=== PATIENT | male | born 1965 | race African-American/Black ===

== ENCOUNTER 2023-02-02 01:41 | Day surgery (SDC) | payer BC, SELFPAY ==
[2023-01-19 09:57] VITALS: BMI 23.8
--- NOTE | 2023-01-29 14:30 | SUR.PREOP ---
Patient called regarding upcoming procedure. No answer - message left with arrival and phone number for questions.
[2023-02-02 12:23] VITALS: PULSE 57; RESP 18; TEMP 36.8; O2SAT 100; BMI 24.5
--- NOTE | 2023-02-02 12:46 | PM.HPGS ---
History of Present Illness History of Present Illness Consent: Risks, benefits, and alternatives have been discussed and questions answered. Patient agrees to proceed with procedure. Chief complaint: generalized abd pain, early satiety, Narrative: Jean-Pierre Sofia is a 57 year old male Presents for EGD. Patient complains rather vague abdominal discomfort. He denies overt pain. He states the symptoms of his stomach discomfort or stiff . Patient reports his bowel habits being fairly regular present. Denies any bleeding. Patient reports that a H pylori breath test was positive. Patient was treated with empiric antibiotics with no change in symptoms. Patient now referred for EGD to assess abdominal discomfort more thoroughly. Patient has refused to trial of PPI acid suppression. he is anticipated to have a screening colonoscopy next year because of a history of colon polyps. Review of Systems Review of Systems: Review of systems noncontributory. [facility] Past Medical History Medical History (Updated 12/25/22 @ 10:59 by Lidia Mojica, NATAN) Early satiety Family hx of colon cancer Generalized abdominal pain Helicobacter pylori infection Hx of colonic polyps Irritable bowel syndrome with constipation Family History Family History Mother Hypertension Family history of arthritis Carcinoma of colon Family history of Alzheimer's disease Father Family history of alcoholism Family history of lung cancer Sibling Family history of alcoholism Grandparent Family history of seizure disorder Social History Social History Smoking status: Never smoker Alcohol intake: never Substance use type: does not use Living arrangements: alone Spiritual care concerns: No Meds Home Medications and Allergies Home Medications Medication Instructions Recorded Confirmed Type albuterol sulfate 90 mcg/actuation 2 inh inhalation Q6H PRN Shortness 12/23/22 01/19/23 History breath activated powder inhaler Of Breath chlorthalidone 50 mg tablet 50 mg PO DAILY 12/23/22 01/19/23 History cholecalciferol (vitamin D3) 25 100 mcg PO DAILY 12/23/22 01/19/23 History mcg (1,000 unit) tablet paroxetine HCl 30 mg tablet 30 mg PO DAILY 12/23/22 01/19/23 History tamsulosin 0.4 mg capsule 0.4 mg PO DAILY 12/23/22 01/19/23 History tumeric 100 mg-christa 150 mg-olive 1 cap PO DAILY 12/23/22 01/19/23 History 50 mg-oreg 150 mg-caprylate capsule venlafaxine 37.5 mg tablet 37.5 mg PO DAILY 12/23/22 01/19/23 History Caprylic Acid 1 tablet PO DAILY 01/19/23 01/19/23 History Lactobacillus 1 cap PO DAILY 01/19/23 01/19/23 History acidophilus-Bifidobac.animalis 2.5 billion cell capsule (Daily Probiotic) calcium polycarbophil 625 mg 625 mg PO DAILY 01/19/23 01/19/23 History tablet (FiberCon) doxazosin 2 mg tablet 2 mg PO DAILY 01/19/23 01/19/23 History fluticasone 250 mcg-salmeterol 50 1 inh inhalation DAILY 01/19/23 01/19/23 History mcg/dose blistr powdr for inhalation (Wixela Inhub) Allergies Allergy/AdvReac Type Severity Reaction Status Date / Time amlodipine Allergy Mild Swelling Verified 01/19/23 09:59 fluoxetine Allergy Unknown Unknown Verified 01/19/23 09:59 tetracycline Allergy Unknown Unknown Verified 01/19/23 09:59 Sulfa (Sulfonamide AdvReac Mild Diarrhea Verified 01/19/23 09:59 Antibiotics) Vital Signs Vital Signs - 24 hr 02/02/23 12:23 Temperature 98.2 F Pulse Rate 57 L Respiratory Rate 18 Pulse Oximetry 100 Oxygen Delivery Room Air Exam Narrative: Physical exam reveals patient to be alert. Vital signs stable. HEENT exam is unremarkable. Patient is anicteric. Lungs are clear to auscultation and percussion. Heart is without murmur or extra sounds. Abdomen bowel sounds are present soft nontender with no organomegaly. Digital external rectal exam deferre
[2023-02-02] MEDS: LACTATED RINGERS 1,000 ML 150 ML IV CONT (13:00)
--- NOTE | 2023-02-02 13:09 | WPDANESEPPF ---
Anes - Initial Pre Proc Eval Procedure: Operation Date: 02/02/23 14:00 Proposed Procedures p Esophagogastroduodenoscopy - Calixto Ibarra MD Date/Time: 02/02/23 13:09 Surgeon: Calixto Ibarra MD Pre Op Diagnosis: generalized abd pain, early satiety, Patient Data Age: 57 Gender: M Height: 1.85 m Weight: 84.3 kg Last Vital Signs Temp 98.2 F 02/02/23 12:23 Pulse 57 L 02/02/23 12:23 Resp 18 02/02/23 12:23 Pulse Ox 100 02/02/23 12:23 O2 Del Method Room Air 02/02/23 12:23 Allergies Allergy/AdvReac Type Severity Reaction Status Date / Time amlodipine Allergy Mild Swelling Verified 01/19/23 09:59 fluoxetine Allergy Unknown Unknown Verified 01/19/23 09:59 tetracycline Allergy Unknown Unknown Verified 01/19/23 09:59 Sulfa (Sulfonamide AdvReac Mild Diarrhea Verified 01/19/23 09:59 Antibiotics) Home Medications Medication Instructions Recorded Confirmed Type albuterol sulfate 90 mcg/actuation 2 inh inhalation Q6H PRN Shortness 12/23/22 01/19/23 History breath activated powder inhaler Of Breath chlorthalidone 50 mg tablet 50 mg PO DAILY 12/23/22 01/19/23 History cholecalciferol (vitamin D3) 25 100 mcg PO DAILY 12/23/22 01/19/23 History mcg (1,000 unit) tablet paroxetine HCl 30 mg tablet 30 mg PO DAILY 12/23/22 01/19/23 History tamsulosin 0.4 mg capsule 0.4 mg PO DAILY 12/23/22 01/19/23 History tumeric 100 mg-christa 150 mg-olive 1 cap PO DAILY 12/23/22 01/19/23 History 50 mg-oreg 150 mg-caprylate capsule venlafaxine 37.5 mg tablet 37.5 mg PO DAILY 12/23/22 01/19/23 History Caprylic Acid 1 tablet PO DAILY 01/19/23 01/19/23 History Lactobacillus 1 cap PO DAILY 01/19/23 01/19/23 History acidophilus-Bifidobac.animalis 2.5 billion cell capsule (Daily Probiotic) calcium polycarbophil 625 mg 625 mg PO DAILY 01/19/23 01/19/23 History tablet (FiberCon) doxazosin 2 mg tablet 2 mg PO DAILY 01/19/23 01/19/23 History fluticasone 250 mcg-salmeterol 50 1 inh inhalation DAILY 01/19/23 01/19/23 History mcg/dose blistr powdr for inhalation (Wixela Inhub) carvedilol 12.5 mg tablet 12.5 mg PO BID 02/02/23 02/02/23 History folic acid 400 mcg tablet 0.4 mg PO DAILY 02/02/23 02/02/23 History polyethylene glycol 3350 17 17 g PO DAILY 02/02/23 02/02/23 History gram/dose oral powder (Miralax) Patient hx anesthesia problems: none Family hx anesthesia problems: none Results Review: All pre-operative results and documents have been reviewed as part of the pre-operative evaluation. [facility] Past Medical History Medical History (Updated 12/25/22 @ 10:59 by Lidia Mojica, NATAN) Early satiety Family hx of colon cancer Generalized abdominal pain Helicobacter pylori infection Hx of colonic polyps Irritable bowel syndrome with constipation Family History Family History Mother Hypertension Family history of arthritis Carcinoma of colon Family history of Alzheimer's disease Father Family history of alcoholism Family history of lung cancer Sibling Family history of alcoholism Grandparent Family history of seizure disorder Social History Social History Smoking status: Never smoker Alcohol intake: never Substance use type: does not use Living arrangements: alone Spiritual care concerns: No Anes - Eval Final PreProcedure Day of Procedure 02/02/23 13:09 Patient weight: normal Heart: regular rate and rhythm Lungs: clear to auscultation Airway: Mallampati scale class II Neurological: alert and oriented Last oral intake: >/= 8 hours ASA classification: III Emergent: no Anesthetic plan: proceed Anesthesia type and monitoring: general GIVS and standard monitoring Results Review: All pre-operative results and documents have been reviewed as part of the pre-operative evaluation. Informed Consent: The patient's anesthetic plan and its atte
[2023-02-02 13:48] VITALS: BP 139/72; PULSE 57; RESP 18; O2SAT 100
[2023-02-02 13:58] VITALS: BP 139/66; PULSE 56; RESP 18; O2SAT 100
[2023-02-02 14:00] VITALS: BP 137/67; PULSE 57; RESP 21; O2SAT 100
== END 2023-02-02 14:45 | disposition home or self-care (01) ==
PROVIDERS: PCP Family Medicine; Visit Provider Internal Medicine Gastroenterology
PROC: 0DJ08ZZ Inspection of Upper Intestinal Tract, Via Natural or Artificial Opening Endoscopic (ICD-10-PCS; CPT 43235; principal; 2023-02-02 14:00)
DX: A04.8 Other specified bacterial intestinal infections (principal); K58.1 Irritable bowel syndrome with constipation; Z79.51 Long term (current) use of inhaled steroids; Z86.010 Personal history of colon polyps; Z80.0 Family history of malignant neoplasm of digestive organs; Z80.1 Family history of malignant neoplasm of trachea, bronchus and lung
CPT/HCPCS: 43239; 87081; J2001; J2704; J7120

== ENCOUNTER 2023-05-25 08:17 | Outpatient (CLI) | payer BC, SELFPAY ==
--- NOTE | ~2023-05-25 | NM_ITS ---
EXAM: NM gastric emptying study DATE: 05/25/2023 13:16 INDICATION: Early satiety TECHNIQUE: A gastric emptying study was performed using the methodology of Jean Claude MONTEMAYOR, et al. J Nucl Med 2007; 48:568-572. The patient was given a meal consisting of 2 scrambled eggs labeled with 0.983 mCi Tc-99m sulfur colloid, 2 slices of toast, two packages of jam, and approximately 120 mL of water . Simultaneous anterior and posterior 1-min images of the abdomen were obtained with the patient supi ne at multiple time points over a total period of 4 hours. The geometric mean of anterior and posteri or views was determined, and the percentage retention was calculated for each time point. COMPARISON: None. FINDINGS: Gastric retention of the radiotracer-labeled meal was 61%, 17%, and 4% at the 1-hour, 2-hour, and 4-h our time points, respectively. With this technique, apparent rapid gastric emptying is suggested by < 30% gastric retention at 1 hour. Delayed gastric emptying is defined by gastric retention of >90% at 1 hour, >60% retention at 2 hours, or >10% retention at 4 hours. IMPRESSION: 1. Normal gastric emptying. Reviewed, dictated and finalized at location L. IMPRESSION: 1. Normal gastric emptying.
== END 2023-05-25 08:18 | disposition home or self-care (01) ==
PROVIDERS: PCP Family Medicine; Visit Provider Nurse Practitioner
DX: K92.9 Disease of digestive system, unspecified (principal); R68.81 Early satiety; R10.84 Generalized abdominal pain
CPT/HCPCS: 78264; A9541

== ENCOUNTER 2024-02-28 00:47 | Day surgery (SDC) | payer BC, SELFPAY ==
[2024-02-21 08:48] VITALS: BMI 24.9
[2024-02-28 10:31] VITALS: BP 127/76; PULSE 73; RESP 18; TEMP 36.6; O2SAT 100; BMI 24.7
[2024-02-28] MEDS: LACTATED RINGERS 1,000 ML 150 ML IV CONT (10:43)
--- NOTE | 2024-02-28 10:46 | P.PNAN_ITS ---
Anes - Initial Pre Proc Eval Procedure: Operation Date: 02/28/24 11:30 Proposed Procedures p Screening Colonoscopy - Wallace White MD Date/Time: 02/28/24 10:46 Surgeon: Wallace White MD Pre Op Diagnosis: Neoplasm screening Patient Data Age: 58 Gender: M Height: 1.85 m Weight: 85.2 kg Last Vital Signs Temp 36.6 C 02/28/24 10:31 Pulse 73 02/28/24 10:31 Resp 18 02/28/24 10:31 BP 127/76 02/28/24 10:31 Pulse Ox 100 02/28/24 10:31 O2 Del Method Room Air 02/28/24 10:31 Allergies Allergy/AdvReac Type Severity Reaction Status Date / Time amlodipine Allergy Mild Swelling Verified 02/28/24 10:27 fluoxetine Allergy Unknown Unknown Verified 02/28/24 10:27 tetracycline Allergy Unknown Unknown Verified 02/28/24 10:27 Sulfa (Sulfonamide AdvReac Mild Diarrhea Verified 02/28/24 10:27 Antibiotics) Home Medications ?Medication ?Instructions ?Recorded ?Confirmed ?Type albuterol sulfate 90 mcg/actuation 2 inh inhalation Q6H PRN Shortness 12/23/22 02/21/24 History breath activated powder inhaler Of Breath chlorthalidone 50 mg tablet 50 mg PO DAILY 12/23/22 02/28/24 History cholecalciferol (vitamin D3) 25 100 mcg PO DAILY 12/23/22 02/28/24 History mcg (1,000 unit) tablet paroxetine HCl 30 mg tablet 30 mg PO DAILY 12/23/22 02/28/24 History venlafaxine 37.5 mg tablet 37.5 mg PO DAILY 12/23/22 02/28/24 History Caprylic Acid 1 tablet PO DAILY 01/19/23 02/28/24 History Lactobacillus 1 cap PO DAILY 01/19/23 02/28/24 History acidophilus-Bifidobac.animalis 2.5 billion cell capsule (Daily Probiotic) calcium polycarbophil 625 mg 625 mg PO DAILY 01/19/23 02/28/24 History tablet (FiberCon) doxazosin 2 mg tablet 2 mg PO DAILY 01/19/23 02/28/24 History fluticasone 250 mcg-salmeterol 50 1 inh inhalation DAILY 01/19/23 02/28/24 History mcg/dose blistr powdr for inhalation (Иринаxela Inhub) carvedilol 12.5 mg tablet 12.5 mg PO BID 02/02/23 02/28/24 History folic acid 400 mcg tablet 0.4 mg PO DAILY 02/02/23 02/28/24 History polyethylene glycol 3350 17 See Rx Instructions .Route 10/04/23 02/28/24 Rx gram/dose oral powder .COMPLEX #2,856 grams Patient hx anesthesia problems: none Family hx anesthesia problems: none Results Review: All pre-operative results and documents have been reviewed as part of the pre-operative evaluation. 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, treated at that time Hypertension Asthma OCD (obsessive compulsive disorder) Chronic kidney disease Digestive problems Elevated blood pressure reading Family hx of colon cancer Hx of colonic polyps Irritable bowel syndrome with constipation Helicobacter pylori infection Early satiety Generalized abdominal pain Family History Family History Mother Hypertension Family history of arthritis Carcinoma of colon Family history of Alzheimer's disease Father Family history of alcoholism Family history of lung cancer Sibling Family history of alcoholism Grandparent Family history of seizure disorder Social History Social History Smoking status: Never smoker Alcohol intake: never Substance use type: does not use Living arrangements: alone Spiritual care concerns: No Anes - Eval Final PreProcedure Day of Procedure 02/28/24 10:46 Patient weight: normal Heart: regular rate and rhythm Lungs: clear to auscultation and normal air movement Airway: Mallampati scale class II Neurological: alert and oriented Last oral intake: >/= 8 hours ASA classification: III Emergent: no Anesthetic plan: proceed Anesthesia type and monitoring: general GIVS and standard monitoring Results Review: All pre-operative results and documents have been reviewed as part of the pre- operative evaluation. Informed Consent: The patient's anesthetic plan and its attendant risks and benefits were discussed with the patient/family/POA. Questions were solicited and answers provided to the satisfaction of the patient/family/POA.
--- NOTE | 2024-02-28 10:59 | PM.HPGS ---
History of Present Illness History of Present Illness Consent: Risks, benefits, and alternatives have been discussed and questions answered. Patient agrees to proceed with procedure. 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, treated at that time Hypertension Asthma OCD (obsessive compulsive disorder) Chronic kidney disease Digestive problems Elevated blood pressure reading Family hx of colon cancer Hx of colonic polyps Irritable bowel syndrome with constipation Helicobacter pylori infection Early satiety Generalized abdominal pain Family History Family History Mother Hypertension Family history of arthritis Carcinoma of colon Family history of Alzheimer's disease Father Family history of alcoholism Family history of lung cancer Sibling Family history of alcoholism Grandparent Family history of seizure disorder Social History Social History Smoking status: Never smoker Alcohol intake: never Substance use type: does not use Living arrangements: alone Spiritual care concerns: No Meds Home Medications and Allergies Home Medications ?Medication ?Instructions ?Recorded ?Confirmed ?Type albuterol sulfate 90 mcg/actuation 2 inh inhalation Q6H PRN Shortness 12/23/22 02/21/24 History breath activated powder inhaler Of Breath chlorthalidone 50 mg tablet 50 mg PO DAILY 12/23/22 02/28/24 History cholecalciferol (vitamin D3) 25 100 mcg PO DAILY 12/23/22 02/28/24 History mcg (1,000 unit) tablet paroxetine HCl 30 mg tablet 30 mg PO DAILY 12/23/22 02/28/24 History venlafaxine 37.5 mg tablet 37.5 mg PO DAILY 12/23/22 02/28/24 History Caprylic Acid 1 tablet PO DAILY 01/19/23 02/28/24 History Lactobacillus 1 cap PO DAILY 01/19/23 02/28/24 History acidophilus-Bifidobac.animalis 2.5 billion cell capsule (Daily Probiotic) calcium polycarbophil 625 mg 625 mg PO DAILY 01/19/23 02/28/24 History tablet (FiberCon) doxazosin 2 mg tablet 2 mg PO DAILY 01/19/23 02/28/24 History fluticasone 250 mcg-salmeterol 50 1 inh inhalation DAILY 01/19/23 02/28/24 History mcg/dose blistr powdr for inhalation (Brian Inhub) carvedilol 12.5 mg tablet 12.5 mg PO BID 02/02/23 02/28/24 History folic acid 400 mcg tablet 0.4 mg PO DAILY 02/02/23 02/28/24 History polyethylene glycol 3350 17 See Rx Instructions .Route 10/04/23 02/28/24 Rx gram/dose oral powder .COMPLEX #2,856 grams Allergies Allergy/AdvReac Type Severity Reaction Status Date / Time amlodipine Allergy Mild Swelling Verified 02/28/24 10:27 fluoxetine Allergy Unknown Unknown Verified 02/28/24 10:27 tetracycline Allergy Unknown Unknown Verified 02/28/24 10:27 Sulfa (Sulfonamide AdvReac Mild Diarrhea Verified 02/28/24 10:27 Antibiotics) Vital Signs Vital Signs - 24 hr 02/28/24 10:31 Temperature 97.8 F Pulse Rate 73 Respiratory Rate 18 Blood Pressure 127/76 Pulse Oximetry 100 Oxygen Delivery Room Air Exam Const: General: comfortable and no acute distress HENMT: Face/Nose/Sinus: Normal nares present Eyes: General: appearance normal, both eyes and all related structures Neck: Neck: no JVD Resp: Auscultation: clear to auscultation bilaterally Cardio: Rate: regular rate Rhythm: regular rhythm GI: Inspection: non-distended GI Palp: Yes Soft to palpation Skin: General skin exam: normal color Neuro: General: gait normal Speech: normal speech Extrem: General: normal to inspection Psych: Mental Status: mental status grossly normal Assessment and Plan Assessment and plan (1) Hx of colonic polyps: Code(s): Z86.010 - Personal history of colon polyps Status: Acute Assessment and Plan: colonoscopy (2) Family hx of colon cancer: Code(s): Z80.0 - Family history of malignant neoplasm of digestive organs Status: Acute
[2024-02-28 11:21] VITALS: BP 105/68; PULSE 75; RESP 20; O2SAT 100
[2024-02-28 11:31] VITALS: BP 116/77; PULSE 69; RESP 20; O2SAT 100
[2024-02-28 11:41] VITALS: BP 123/83; PULSE 65; RESP 20; O2SAT 100
--- OUTSIDE RECORDS SUMMARY | 2024-03-04 10:33 | XMS_ITS | Encounter Summary ---
Author Organization [facility] Address [address] [place] [address] Care Team Providers Care Filemaker Developer Name Role Phone Juan M Doll MD Primary Care Provider [phone] Encounter Details Date Type Department Care Team (Late st Contact Info) Description 09/29/2022 Telephone [facility] Nephrology at [place] [id number] [facility] [address] [place] [address] Feliberto Munoz MD [facility] [address] [place] [address] Social History Tobacco Use Types Packs/Day Years Used Date Smoking Tobacco: Never Smokeless Tobacco: Never Alcohol Use Standard Drinks/Week Comments Not Currently 0 (1 standard drink = 0.6 oz pur e alcohol) AUDIT-C Answer Date Recorded Q1: How often do you have a drink containing alcohol? Never 02/04/2022 Q2: How many drinks containi ng alcohol do you have on a typical day when you are drinking? Patient does not drink Q3: How often do you have si x or more drinks on one occasion? 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 Munoz. documented in this encounter Plan of Treatment Not on file documented as of this encounter Visit Diagnoses Not on filedocumented in this encounter Care Teams Filemaker Developer Relationship Specialty Start Date End Date Juan M Doll MD [address] [facility] [address] [address] PCP - General Family Medicine 09/24/22 documented as of this encounter
--- OUTSIDE RECORDS SUMMARY | 2024-03-04 10:33 | XMS_ITS | Encounter Summary ---
Author Organization [facility] Address [address] [place] [address] Care Team Providers Care Rehab Assistant Name Role Phone Juan M Doll MD Primary Care Provider [phone] Encounter Details Date Type Department Care Team (Late st Contact Info) Description 10/26/2022 Telephone [facility] Nephrology at [place] [id number] [facility] [address] [place] [address] Feliberto Munoz MD [address] [place] [address] [address] [place] [address] Social History Tobacco Use Types Packs/Day Years Used Date Smoking Tobacco: Never Smokeless Tobacco: Never Alcohol Use Standard Drinks/Week Comments Not Currently 0 (1 standard drink = 0.6 oz pur e alcohol) AUDIT-C Answer Date Recorded Q1: How often do you have a drink containing alc ohol? 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 documented in this encounter Plan of Treatment Scheduled Orders Name Type Priority Associated Diagnoses Orde r Schedule CBC with auto differential Lab Routine Stage 3b chronic kidney disease (HCC) Expected: 10/26/2022, Expires: 10/27/2023 documented as of this encounter Visit Diagnoses Diagnosis Stage 3b chronic kidney disease (HCC)- Primary documented in this encounter Care Teams Rehab Assistant Relationship Specialty Start Date End Date Juan M Doll MD [address] [facility] [address] [facility] [address] [place] [address] [place] [id number] PCP - General Family Medicine 09/24/22 documented as of this encounter
--- OUTSIDE RECORDS SUMMARY | 2024-03-04 10:33 | XMS_ITS | Encounter Summary ---
Author Organization [facility] Address [address] [facility] [address] [place] [address] Phone Care Team Providers Care Community Service Director Name Role Phone Juan M Doll MD Primary Care Provider [phone] Khang Osullivan MD Unavailable Reason for Referral * Diagnostic Imaging (Routine) - Pending Review Specialty Diagnoses / Procedures Referred By Margie t Referred To Contact Diagnoses Positive THERESE (antinuclear antibody) Procedures XR Ankle Bilateral 3 or More Views Leana Jack MD [address] [place] [address] Phone: tel: fax: [address] [address] Referral ID Status Reason Start Date Expiration Date V isits Requested Visits Authorized [id number] Pending Review 02/09/2024 03/10/2025 1 1 CORNER STAYER MACHINE OPERATOR Encounter Details Date Type Department Care Team (Late st Contact Info) Description 02/09/2024 3:40 PM FOUR CORNER STAYER MACHINE OPERATOR Office Visit [facility] Rheumatology [address] [facility] 5th [place] [address] [place] [address] Leana Jack MD [address] [place] [address] 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 Denies 10/23/2023 Sex and Gender Information Value Date Recorded Sex Assigned at Not on file Legal Sex Male 3:46 AM FOUR CORNER STAYER MACHINE OPERATOR Gender Identity Not on file Sexual Orientation Not on file documented as of this encounter Last Filed Vital Signs Vital Sign Reading Time Taken Comments Blood Pressure 149/90 02/09/2024 2:16 PM FOUR CORNER STAYER MACHINE OPERATOR Pulse 66 02/09/2024 2:16 PM FOUR CORNER STAYER MACHINE OPERATOR Temperature 36.3 ??C (97.3 ??F) 02/09/2024 2:16 PM CS T Respiratory Rate - - Oxygen Saturation - - Inhaled Oxygen Concentration - - Weight 88.5 kg (195 lb 3.2 oz) 02/09/2024 2:16 P M FOUR CORNER STAYER MACHINE OPERATOR Height 185.4 cm (6' 1 ) 02/09/2024 2:16 PM FOUR CORNER STAYER MACHINE OPERATOR Body Mass Index 25.75 02/09/2024 2:16 PM FOUR CORNER STAYER MACHINE OPERATOR documented in this encounter Progress Notes * Leana Jack MD - 02/09/2024 3:40 PM CST [facility] Division of Rheumatology Established patient visit SUBJECTIVE: CC: Here follow-up of joint pain and positive CCP antibodies History of Present Illness: 58 y.o. male with joint pain and positive CCP antibodies is here for follow-up today. Since his last visit with me in 10/2023, he has been doing well. Left knee pain which was his main complaint at his last visit has resolved. Left knee was aspirated when I last saw him in October 2023. Fluid was noninflammatory, synovial white blood cell count 300, no crystals seen, Gram stain and cultures negative. The last few days has noticed bilateral ankle and foot pain. He says this happens with activity. The foot pain is mostly centered around his toes. No swelling in these joints. He had a prior meniscal tear in the left knee and had this surgically repaired in 2006. Since then he has been having pain in this knee on and off, as stated above, this is better since his last visit. He has some pain in his right knee as well. He has had no other joint pain, swelling or stiffness. He has had years of diffuse joint and muscle pain. He had 6 weeks of bilateral wrist extending to the elbows in early 2021, which prompted him to see his PCP, who subsequently referred him to me. He has generalized muscle stiffness mainly in neck and shoulders with no morning stiffness or swelling in joints. ROS: As in HPI, all other systems negative PMHx: (+) Asthma, (+) Chronic Sinusitis, (-) Psoriasis, (-) Colitis PMHx: Past Medical History: Diagnosis Date Anxiety Arthritis 1977 Asthma Autoimmune disease ([facility]) ([facility]) 1999 Cancer ([facility]) ([facility]) 2002 Chronic fatigue Chronic kidney disease Apr 2021 Constipation Depression Enlarged prostate Kidney damage OCD (obsessive compulsive disorder) Sleep apnea 2002 Thyroid disease 1999 Tuberculosis 1974 PSHx: Past Surgical History: Procedure Laterality Date CHEST WALL BIOPSY 2003 COLONOSCOPY 09/30/2017 Benign colon polyp FLEXIBLE SIGMOIDOSCOPY 01/12/2019 NAD KNEE SURGERY FamHx: Family History Problem Relation Age of Onset Alcohol abuse Father Cancer Father Mental illness Father Alcohol abuse Sister Cancer Sister Diabetes Sister Drug abuse Sister Hypertension Sister Mental illness Sister Vision loss Sister Alzheimer's disease Mother Arthritis Mother Cancer Mother Hypertension Mother Mental illness Mother Miscarriages / Stillbirths Mother FHx: (-) Autoimmune disease 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 Social History Tobacco Use Smoking status: Never Smoker Smokeless tobacco: Never Used Substance Use Topics Alcohol use: Not Currently Drug use: Never MEDICATIONS: Current Outpatient Medications Medication Sig Dispense Refill albuterol HFA (ProAir HFA) 90 mcg/actuation inhaler Inhale 2 puffs every 4 (four) hours as needed for wheezing or shortness of breath 3 Inhaler 3 caprylic/capric triglyceride (CAPRYLIC-CAPRIC TRIGLY, BULK, MISC) cholecalciferol (VITAMIN D-3) 25 mcg (1,000 unit) tablet Take 4,000 Units by mouth daily clobetasoL (TEMOVATE) 0.05 % cream Apply topically 2 (two) times a day 30 g 1 lactobacillus comb no.10 20 billion cell capsule Take 1 capsule by mouth PARoxetine (PAXIL) 30 mg tablet Take 1 tablet (30 mg total) by mouth every morning. 30 tablet 3 polycarbophil (FIBERCON) 625 mg tablet Take 625 mg by mouth daily venlafaxine XR (EFFEXOR-XR) 37.5 mg 24 hr capsule Take 1 capsule (37.5 mg total) by mouth daily. 30capsule 3 Wixela Inhub 250-50 mcg/dose diskus inhaler INHALE 1 PUFF BY MOUTH DAILY. RINSE MOUTH WITH WATER AFTER USE TO REDUCE AFTERTASTE AND INCIDENCE OF CANDIDIASIS. DO NOT SWALLOW 60 each 2 ALLERGIES: Allergies Allergen Reactions Amlodipine Besylate Swelling Tetracycline Swelling Glutathione (Bulk) Unknown Throat swelling Prozac [Fluoxetine] Unknown Sulfa (Sulfonamide Antibiotics) Diarrhea OBJECTIVE: Physical Examination: Vitals: BP 149/90 (BP Location: Right arm, Patient Position: Sitting) Pulse 66 Temp 36.3 ??C (97.3 ??F) (Oral) Ht 185.4 cm (6' 1 ) Wt 88.5 kg (195 lb 3.2 oz) BMI 25.75 kg/m?? General-pleasant, well-appearing in no distress HEENT unremarkable Cardiovascular exam S1-S2 Lungs clear to auscultation bilaterally Skin no rash, dry hyperpigmented skin on the dorsal aspect of both hands Extremities no edema Musculoskeletal exam-no synovitis in the joints, full range of motion of all joints, no warmth or swelling in the knees, crepitus with range of motion both knees Investigations: Labs: Lab Results Component Value Date WBC 3.9 10/23/2023 HGB 11.7 (L) 10/23/2023 HCT 35.5 (L) 10/23/2023 MCV 89.9 10/23/2023 LABPLAT 169 10/23/2023 Lab Results Component Value Date AST 17 10/23/2023 ALT 15 10/23/2023 CREATININE 1.50 (H) 10/23/20232021- ESR 29, CCP Ab >300, RF 11 negative THERESE CRP normal Radiology: Bilateral wrist XR 04/2021: Severe bilateral thumb basal joint osteoarthritis. No erosions EXAMINATION: 06/03 1. XR FOREARM LEFT 1 VIEW 2. XR WRIST RIGHT 3 OR MORE VIEWS 3. XR HAND LEFT 3 OR MORE VIEWS 4. XR HAND RIGHT 3 OR MORE VIEWS 5. XR WRIST LEFT 3 OR MORE VIEWS 6. XR FOREARM RIGHT 1 VIEW HISTORY: Rheumatoid arthritis FINDINGS: 7 radiographs of the left forearm, wrist, and hand and 7 radiographs of the right forearm, wrist, and hand are submitted for interpretation with comparison made to wrist radiographs 04/30/2021. No acute fracture or dislocation is identified. There is multifocal, moderate to severe joint space narrowing involving the interphalangeal, thumb metacarpophalangeal, thumb carpometacarpal, and triscaphe joints. There are osteophytes at the thumb carpometacarpal joints bilaterally. A nonspecific lucency in the left triquetrum may represent a cyst or erosion, and is unchanged. There are no osseous erosions on the right side. There is mild soft tissue swelling of the dorsal aspect of both wrists. IMPRESSION: 1. Multifocal osteoarthritis of both hands and wrists, most severe at the bilateral thumb carpometacarpal joints. 2. Unchanged, nonspecific lucency in the left triquetrum may represent a cyst or erosion. 03/24/23- EXAMINATION: XR HAND BILATERAL 3 OR MORE VIEWS OF EACH, XR KNEE BILATERAL AP STANDING, XR WRIST BILATERAL 3 OR MORE VIEWS HISTORY: Hand, wrist, and knee pain FINDINGS: 3 radiographs of each hand, 3 radiographs of each wrist, and single radiograph of the knees are submitted for interpretation with comparison to hand and wrist radiographs 06/04/2021 and knee radiographs 10/03/2009. Left hand and wrist: Mild positive ulnar variance. Severe triscaphe osteoarthritis. Moderate distal interphalangeal joint osteoarthritis in the second-fifth fingers. No acute fracture. Unchanged cysts or erosions in the left triquetrum and scaphoid bones. Right hand and wrist: Mild positive ulnar variance. Severe triscaphe osteoarthritis. Moderate osteoarthritis of the distal interphalangeal joints of the second through fifth fingers. No acute fracture. Knees: Moderate left and mild right medial joint space narrowing. No acute displaced fracture on this limited single view of the knees. IMPRESSION: 1. Bilateral hand osteoarthritis, severe at the triscaphe joints bilaterally 2. Medial joint space narrowing in both knees, left greater than right 3. Unchanged cysts or erosions left triquetrum and scaphoid bones. ASSESSMENT/PLAN: Joint pain in the context of high titer CCP antibodies. Although he has high titer CCP antibodies, clinically he does not have RA. X-rays of his hands and wrists from May 2021 were consistent with osteoarthritis, more recent x-rays in March 2023 showed osteoarthritis along with isolated erosions in the left triquetrum and scaphoid. He is asymptomatic at the present time except for occasional ankle and foot pain. I will get x-rays of bilateral ankles and feet today. We discussed his lab results and x-rays in detail today. Given his minimal symptoms at this time, I do not think that any treatment is warranted. If he has new or ongoing joint symptoms, I will consider starting treatment. He understands and agrees with this plan. He knows not to take NSAIDs even yeoy-cne-cesbiuf ones with his mild CKD He will return in 6 months, and call to be seen sooner in case of new or worsening symptoms. CORNER STAYER MACHINE OPERATOR documented in this encounter Plan of Treatment Not on file documented as of this encounter Results * XR Ankle Bilateral 3 or More Views (02/09/2024 3:20 PM FOUR CORNER STAYER MACHINE OPERATOR) Anatomical Region Laterality Modality Lower Extremities, Ankle Compute d Radiography 02/09/2024 3:54 PM FOUR CORNER STAYER MACHINE OPERATOR Impressions 02/09/2024 3:54 PM FOUR CORNER STAYER MACHINE OPERATOR 1. 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 2. ??No acute osseous abnormality in either foot or ankle with small bilateral heel spurs. Electronically signed by: Andrea Ordaz M.D. Narrative 02/09/2024 3:54 PM FOUR CORNER STAYER MACHINE OPERATOR EXAMINATION: XR ANKLE BILATERAL 3 OR MORE VIEWS, XR FOOT BILATERAL 3 OR MORE VIEWS OF EACH HISTORY: Bilateral foot and ankle pain, positive THERESE and CCP antibodies. ?? COMPARISON: None available FINDINGS: ?? Right ankle/foot: There is no acute fracture or dislocation in the right ankle or foot. ??Ankle mortise and talar dome are intact. ??No syndesmotic widening on this nonweightbearing examination. ??Vascular calcifications. ??Dorsal talonavicular spurring. ??There is severe 1st metatarsophalangeal joint osteoarthritis. ??Mild particular midfoot osteoarthritis. ??Tiny heel spur. ??No definite osseous erosions. Left foot/ankle: No acute fracture or dislocation in the left foot or ankle. ??Tiny heel spur. ??Ankle mortise and talar dome are intact. ??No syndesmotic widening. ??Heterotopic ossification at the lateral malleolus likely representing sequelae of prior ligamentous injury. Mild to moderate 1st metatarsophalangeal joint osteoarthritis. ??Os peroneum. ??Mild polyarticular midfoot osteoarthritis. ??No definite osseous erosions. Procedure Note Andrea Ordaz MD - 02/09/2024 EXAMINATION: XR ANKLE BILATERAL 3 OR MORE VIEWS, XR FOOT BILATERAL 3 OR MORE VIEWS OF EACH HISTORY: Bilateral foot and ankle pain, positive THERESE and CCP antibodies. COMPARISON: None available FINDINGS: Right ankle/foot: There is no acute fracture or dislocation in the right ankle or foot. Ankle mortise and talar dome are intact. No syndesmotic widening on this nonweightbearing examination. Vascular calcifications. Dorsal talonavicular spurring. There is severe 1st metatarsophalangeal joint osteoarthritis. Mild particular midfoot osteoarthritis. Tiny heel spur. No definite osseous erosions. Left foot/ankle: No acute fracture or dislocation in the left foot or ankle. Tiny heel spur. Ankle mortise and talar dome are intact. No syndesmotic widening. Heterotopic ossification at the lateral malleolus likely representing sequelae of prior ligamentous injury. Mild to moderate 1st metatarsophalangeal joint osteoarthritis. Os peroneum. Mild polyarticular midfoot osteoarthritis. No definite osseous erosions. IMPRESSION: 1. Severe right and mild to moderate left 1st metatarsophalangeal joint osteoarthritis. 2. No acute osseous abnormality in either foot or ankle with small bilateral heel spurs. Electronically signed by: Andrea Ordaz M.D. us Leana Jack MD IMG XR PROCEDURES Final Re sult * XR Foot Bilateral 3 or More Views of Each (02/09/2024 3:20 PM FOUR CORNER STAYER MACHINE OPERATOR) Anatomical Region Laterality Modality Lower Extremities, Foot Computed Radiography 02/09/2024 3:54 PM FOUR CORNER STAYER MACHINE OPERATOR Impressions 02/09/2024 3:54 PM FOUR CORNER STAYER MACHINE OPERATOR 1. 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 2. ??No acute osseous abnormality in either foot or ankle with small bilateral heel spurs. Electronically signed by: Andrea Ordaz M.D. Narrative 02/09/2024 3:54 PM FOUR CORNER STAYER MACHINE OPERATOR EXAMINATION: XR ANKLE BILATERAL 3 OR MORE VIEWS, XR FOOT BILATERAL 3 OR MORE VIEWS OF EACH HISTORY: Bilateral foot and ankle pain, positive THERESE and CCP antibodies. ?? COMPARISON: None available FINDINGS: ?? Right ankle/foot: There is no acute fracture or dislocation in the right ankle or foot. ??Ankle mortise and talar dome are intact. ??No syndesmotic widening on this nonweightbearing examination. ??Vascular calcifications. ??Dorsal talonavicular spurring. ??There is severe 1st metatarsophalangeal joint osteoarthritis. ??Mild particular midfoot osteoarthritis. ??Tiny heel spur. ??No definite osseous erosions. Left foot/ankle: No acute fracture or dislocation in the left foot or ankle. ??Tiny heel spur. ??Ankle mortise and talar dome are intact. ??No syndesmotic widening. ??Heterotopic ossification at the lateral malleolus likely representing sequelae of prior ligamentous injury. Mild to moderate 1st metatarsophalangeal joint osteoarthritis. ??Os peroneum. ??Mild polyarticular midfoot osteoarthritis. ??No definite osseous erosions. Procedure Note Andrea Ordaz MD - 02/09/2024 EXAMINATION: XR ANKLE BILATERAL 3 OR MORE VIEWS, XR FOOT BILATERAL 3 OR MORE VIEWS OF EACH HISTORY: Bilateral foot and ankle pain, positive THERESE and CCP antibodies. COMPARISON: None available FINDINGS: Right ankle/foot: There is no acute fracture or dislocation in the right ankle or foot. Ankle mortise and talar dome are intact. No syndesmotic widening on this nonweightbearing examination. Vascular calcifications. Dorsal talonavicular spurring. There is severe 1st metatarsophalangeal joint osteoarthritis. Mild particular midfoot osteoarthritis. Tiny heel spur. No definite osseous erosions. Left foot/ankle: No acute fracture or dislocation in the left foot or ankle. Tiny heel spur. Ankle mortise and talar dome are intact. No syndesmotic widening. Heterotopic ossification at the lateral malleolus likely representing sequelae of prior ligamentous injury. Mild to moderate 1st metatarsophalangeal joint osteoarthritis. Os peroneum. Mild polyarticular midfoot osteoarthritis. No definite osseous erosions. IMPRESSION: 1. Severe right and mild to moderate left 1st metatarsophalangeal joint osteoarthritis. 2. No acute osseous abnormality in either foot or ankle with small bilateral heel spurs. Electronically signed by: Andrea Ordaz M.D. Leana Jack MD IMG XR PROCEDURES Final Re sult documented in this encounter Visit Diagnoses Diagnosis Cyclic citrullinated peptide (CCP) antibody positive- Primary Arthralgia, unspecified joint Positive THERESE (antinuclear antibody) Other and unspecified nonspecific immunological findings documented in this encounter Historical Medications * This list may reflect changes made after this encounter. latanoprost (XALATAN) 0.005 % ophthalmic solution INSTILL 1 DROP IN EACH EYE AT BEDTIME 01/26/2024 added in this encounter Care Teams Community Service Director Relationship Specialty Start Date End Date Juan M Doll MD [address] [address] [place] [address] PCP - General Family Medicine 09/24/22 Khang Osullivan MD [address] [facility] [address], [place] [address] Consulting Physician Gastroenterology 11/25/22 documented as of this encounter
--- OUTSIDE RECORDS SUMMARY | 2024-03-04 10:33 | XMS_ITS | Encounter Summary ---
Author Organization [facility] Address [address] [place] [address] Care Team Providers Care Recreation Supervisor Name Role Phone Juan M Doll MD Primary Care Provider [phone] Khang Osullivan MD Unavailable Reason for Referral * Diagnostic Imaging (Routine) - Pending Review Specialty Diagnoses / Procedures Referred By Contac t Referred To Contact Diagnoses Positive THERESE (antinuclear antibody) Procedures XR Ankle Bilateral 3 or More Views Leana Jack MD [address] [address] Phone: tel: fax: [facility] [address] [place] [address] Referral ID Status Reason Start Date Expiration Date V isits Requested Visits Authorized [id number] Pending Review 02/09/2024 03/10/2025 1 1 BASKET TOP MAKER Reason for Visit * Diagnostic Imaging (Routine) - Pending Review Specialty Diagnoses / Procedures Referred By Contac t Referred To Contact Diagnoses Positive THERESE (antinuclear antibody) Procedures XR Ankle Bilateral 3 or More Views Leana Jack MD [address] [address] Phone: tel: fax: [facility] [address] [place] [address] Referral ID Status Reason Start Date Expiration Date V isits Requested Visits Authorized [id number] Pending Review 02/09/2024 03/10/2025 1 1 Encounter Details Date Type Department Care Team (Latest Contact Info) Description 02/09/2024 3:06 PM SLAT BASKET TOP MAKER - 02/09/2024 11:59 PM SLAT BASKET TOP MAKER Hospital Encounter [facility] [address] [place] [id number] Positive THERESE (antinuclear antibody) Discharge Disposition: Discharge to home or self care Social History Tobacco Use Types Packs/Day Years [...] on file Legal Sex Male 3:46 AM SLAT BASKET TOP MAKER Gender Identity Not on file Sexual Orientation Not on file documented as of this encounter Medications at Time of Discharge albuterol HFA (ProAir HFA) 90 mcg/actuation inhalerIndications :Moderate persistent asthma without complication Inhale 2 puffs every 4 (four) hours as needed for wheezing or shortness of breath 3 each 3 01/01/2022 carvediloL (COREG) 12.5 mg tabletIndications: CKD stage 3a, GFR 45-59 ml/min ([facility]) Take 1 tablet (12.5 mg total) by mouth 2 (two) times a day with meals 180 tablet 3 11/17/2023 5 chlorthalidone (HYGROTON) 50 mg tablet Take 1 tablet (50 mg total) by mouth daily 90 tablet 3 09/07/2023 cholecalciferol (VITAMIN D-3) 25 mcg (1,000 unit) tablet Take 4 tablets (4,000 Units total) by mouth daily doxazosin (CARDURA) 2 mg tablet Take 1 tablet (2 mg total) by mouth every morning 90 tablet 3 10/04/2023 5 doxazosin (CARDURA) 8 mg tablet Take 1 tablet (8 mg total) by mouth nightly 90 tablet 3 10/04/2023 5 fluticasone propion-salmeteroL (Wixela Inhub) 250-50 mcg/dose diskus inhaler INHALE 1 PUFF BY MOUTH TWICE DAILY. RINSE MOUTH WITH WATER AFTER USE. DO NOT SWALLOW 60 each 5 09/17/2023 folic acid (FOLVITE) 1 mg tablet Take 1 tablet (1 mg total) by mouth daily lactobacillus comb no.10 (Probiotic) 20 billion cell capsule latanoprost (XALATAN) 0.005 % ophthalmic solution INSTILL 1 DROP IN EACH EYE AT BEDTIME 01/26/2024 polycarbophil (FIBERCON) 625 mg tablet Take 1 tablet (625 mg total) by mouth daily polyethylene glycol (MIRALAX) 17 gram packetIndications: constipation Take 1 packet (17 g total) by mouth daily 30 packet 02/12/2022 venlafaxine XR (EFFEXOR-XR) 37.5 mg 24 hr capsuleIndications :Depression, unspecified depression type Take 1 capsule (37.5 mg total) by mouth daily 30 capsule 3 01/10/2024 5 documented as of this encounter Discharge Disposition Disposition Code Departure Means Destination Discharge to home or self care documented in this encounter Plan of Treatment Not on file documented as of this encounter Procedures Procedure Name Priority Date/Time Associated Diagnosis Comments XR ANKLE BILATERAL 3 OR MORE VIEWS Schedule Routine, Read Routine (OP Routine) 02/09/2024 3:20 PM SLAT BASKET TOP MAKER Positive THERESE (antinuclear antibody) XR FOOT BILATERAL 3 OR MORE VIEWS OF EACH Schedule Routine, Read Routine (OP Routine) 02/09/2024 3:20 PM SLAT BASKET TOP MAKER Positive THERESE (antinuclear antibody) documented in this encounter Results * XR Foot Bilateral 3 or More Views of Each (02/09/2024 3:20 PM SLAT BASKET TOP MAKER) Anatomical Region Laterality Modality Lower Extremities, Foot Computed Radiography 02/09/2024 3:54 PM SLAT BASKET TOP MAKER Impressions 02/09/2024 3:54 PM SLAT BASKET TOP MAKER 1. 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 2. ??No acute osseous abnormality in either foot or ankle with small bilateral heel spurs. Electronically signed by: Andrea Ordaz M.D. Narrative 02/09/2024 3:54 PM SLAT BASKET TOP MAKER EXAMINATION: XR ANKLE BILATERAL 3 OR MORE [...] XR PROCEDURES Final Re sult * XR Ankle Bilateral 3 or More Views (02/09/2024 3:20 PM SLAT BASKET TOP MAKER) Anatomical Region Laterality Modality Lower Extremities, Ankle Compute d Radiography 02/09/2024 3:54 PM SLAT BASKET TOP MAKER Impressions 02/09/2024 3:54 PM SLAT BASKET TOP MAKER 1. 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 2. ??No acute osseous abnormality in either foot or ankle with small bilateral heel spurs. Electronically signed by: Andrea Ordaz M.D. Narrative 02/09/2024 3:54 PM SLAT BASKET TOP MAKER EXAMINATION: XR ANKLE BILATERAL 3 OR MORE [...] documented in this encounter Visit Diagnoses Diagnosis Positive THERESE (antinuclear antibody) Other and unspecified nonspecific immunological findings documented in this encounter Care Teams Recreation Supervisor Relationship Specialty Start Date End Date Juan M Doll MD [address] [facility] [address] [facility] [place] [address] PCP - General Family Medicine 09/24/22 Khang Osullivan MD [address] [facility] [address] [place] [address] Consulting Physician Gastroenterology 11/25/22 documented as of this encounter
--- OUTSIDE RECORDS SUMMARY | 2024-03-04 10:33 | XMS_ITS | Encounter Summary ---
Author Organization [facility] Healthcare Address [address] [place] [address] Care Team Providers Care Pattern Generator Operator Name Role Phone Juan M Doll MD Primary Care Provider [phone] Khang Osullivan MD Unavailable Reason for Visit * Reason Comments Abnormal Lab Encounter Details Date Type Department Care Team (Late st Contact Info) Description 10/23/2023 5:14 PM CDT - 10/23/2023 6:59 PM CDT Emergency [facility] Emergency Department [address] [place], [place] [address] Antonio Woodall, [facility] [place] [address] Abnormal laboratory test (Primary Dx); Acute cystitis with hematuria Discharge Disposition: Discharge to home or self [...] staff should administer the PHQ-9) 0 09/24/2022 Personal Safety Answer Date Recorded Have you ever been in or are you currently in a harmful physical or emotional relationship or is someone making you feel afraid or unsafe? Denies 10/23/2023 Sex and Gender Information Value Date Recorded Sex Assigned at Not on file Legal Sex Male 3:46 AM [employer] Gender Identity Not on file Sexual Orientation Not on file documented as of this encounter Last Filed Vital Signs Vital Sign Reading Time Taken Comments Blood Pressure 142/80 10/23/2023 6:45 PM CDT Pulse 51 10/23/2023 6:45 PM CDT Temperature 36.9 ??C (98.4 ??F) 10/23/2023 2:38 PM CD T Respiratory Rate 15 10/23/2023 6:45 PM CDT Oxygen Saturation 100% 10/23/2023 6:45 PM CDT Inhaled Oxygen Concentration - - Weight 89.2 kg (196 lb 10.4 oz) 10/23/2023 2:38 PM CDT Height - - Body Mass Index 25.94 04/21/2023 3:26 PM [employer] documented in this encounter Discharge Instructions * Attachments The following attachments cannot be sent through Care Everywhere. * Urinary Tract Infection in Men (Discharge Care) (Bhutanese) documented in this encounter Medications at Time of Discharge albuterol HFA (ProAir HFA) 90 mcg/actuation inhalerIndications :Moderate persistent asthma without complication Inhale 2 puffs every 4 (four) hours as needed for wheezing or shortness of breath 3 each 3 01/01/2022 chlorthalidone (HYGROTON) 50 mg tablet Take 1 [...] comb no.10 (Probiotic) 20 billion cell capsule PARoxetine (PAXIL) 30 mg tabletIndications: Depression, unspecified depression type Take 1 tablet (30 mg total) by mouth every morning. 30 tablet 3 11/29/2017 polycarbophil (FIBERCON) 625 mg tablet Take 1 tablet (625 mg total) by mouth daily polyethylene glycol (MIRALAX) 17 gram packetIndications: constipation Take 1 packet (17 g total) by mouth daily 30 packet 02/12/2022 cephalexin (KEFLEX) 500 mg capsule Take 1 capsule (500 mg total) by mouth 3 (three) times a day for 5 days 15 capsule 10/23/2023 4 bisacodyL 5 mg tablet 2 tabs daily 60 tablet 5 09/24/2022 4 carvediloL (COREG) 12.5 mg tablet Take 1 tablet (12.5 mg total) by mouth 2 (two) times a day with meals 180 tablet 3 10/06/2022 4 docusate sodium (COLACE) 100 mg capsuleIndications :constipation Take 1 capsule (100 mg total) by mouth 2 (two) times a day 60 capsule 5 09/24/2022 4 lactulose solution 10 gram/15mL 30 cc daily , prn 473 mL 5 09/24/2022 4 pancrelipase (Zenpep) 3,000 units of lipase capsule,delayed release(DR/EC) 3 (three) times a day 4 venlafaxine XR (EFFEXOR-XR) 37.5 mg 24 hr capsuleIndications :Depression, unspecified depression type Take 1 capsule (37.5 mg total) by mouth daily. 30 capsule 3 11/29/2017 4 documented as of this encounter Ordered Prescriptions Prescription Sig Dispense Quantity Refills Last Filled Start Date End Date cephalexin (KEFLEX) 500 mg capsule Take 1 capsule (500 mg total) by mouth 3 (three) times a day for 5 days 15 capsule 10/23/2023 4 documented in this encounter Discharge Disposition Disposition Code Departure Means Destination Comment s Discharge to home or self care documented in this encounter ED Notes * Antonio Woodall, - 10/23/2023 6:30 PM CDT Chief Complaint Patient presents with Abnormal Lab HPI HPI Jean-Pierre Sofia is a 57 y.o. male w/ PMHx including hyperkalemia, CKD, autoimmune disease, cancer,anxiety, and enlarged prostate presenting to the ED w/ c/o hyperkalemia. Pt got his labs drawn 2x days ago and his potassium level was 5.6. Pt reports he called the access line who told him to come to ED. Pt denies associated chest pain, palpitations, SOB, and any other associated symptoms. Pt doesnote that over the past couple of weeks his urine has a different smell. Pt states he has a Hx of UTI and enlarged prostate. Past Medical History: Diagnosis Date Anxiety Arthritis 1977 Asthma Autoimmune disease (CMS/HCC) ([facility]) 1999 Cancer (CMS/HCC) ([facility]) 2002 Chronic fatigue Chronic kidney disease Apr 2021 Constipation Depression Enlarged prostate Kidney damage OCD (obsessive compulsive disorder) Sleep apnea 2002 Thyroid disease 1999 Tuberculosis 1974 Past Surgical History: Procedure Laterality Date COLONOSCOPY 09/30/2017 Benign colon polyp FLEXIBLE SIGMOIDOSCOPY 01/12/2019 NAD KNEE SURGERY Family History Problem Relation Age of Onset Alcohol abuse Father Cancer Father Mental illness Father Alcohol abuse Sister Cancer Sister Diabetes Sister Drug abuse Sister Hypertension Sister Mental illness Sister Vision loss Sister Alzheimer's disease Mother Arthritis Mother Cancer Mother Hypertension Mother Mental illness Mother Miscarriages / Stillbirths Mother Social History Tobacco Use Smoking status: Never Smokeless tobacco: Never Substance and Sexual Activity Drug use: Never Sexual activity: Not Currently Partners: Female Alcohol Use: Not At Risk (10/06/2022) AUDIT-C Frequency of Alcohol Consumption: Never Average Number of Drinks: Not on file Frequency of Binge Drinking: Not on file Review of Systems Review of Systems Constitutional: Negative for chills and fever. HENT: Negative for ear pain and sore throat. Eyes: Negative for pain and visual disturbance. Respiratory: Negative for cough and shortness of breath. Cardiovascular: Negative for chest pain and palpitations. Gastrointestinal: Negative for abdominal pain and vomiting. Genitourinary: Negative for dysuria and hematuria. Different urine smell Musculoskeletal: Negative for arthralgias and back pain. Skin: Negative for color change and rash. Neurological: Negative for seizures and syncope. All other systems reviewed and are negative. Physical Exam ED Triage Vitals Temp Pulse Resp BP SpO2 10/23/23 1438 10/23/23 1438 10/23/23 1438 10/23/23 1438 10/23/23 1438 36.9 ??C (98.4 ??F) 58 20 134/90 99 % Temp src Heart Rate Source Patient Position BP Location FiO2 (%) 10/23/23 1438 10/23/23 1723 -- -- -- Oral Monitor Height Height Method Weight Weight Method -- -- 10/23/23 1438 10/23/23 1438 89.2 kg (196 lb 10.4 oz) Standing scale Physical Exam Vitals and nursing note reviewed. Constitutional: General: He is not in acute distress. Appearance: He is well-developed. HENT: Head: Normocephalic and atraumatic. Eyes: Conjunctiva/sclera: Conjunctivae normal. Cardiovascular: Rate and Rhythm: Normal rate and regular rhythm. Heart sounds: No murmur heard. Pulmonary: Effort: Pulmonary effort is normal. No respiratory distress. Breath sounds: Normal breath sounds. Abdominal: Palpations: Abdomen is soft. Tenderness: There is no abdominal tenderness. Musculoskeletal: General: No swelling. Cervical back: Neck supple. Skin: General: Skin is warm and dry. Capillary Refill: Capillary refill takes less than 2 seconds. Neurological: Mental Status: He is alert. Psychiatric: Mood and Affect: Mood normal. Procedures Labs Reviewed URINALYSIS AND REFLEX TO MICROSCOPIC AND CULTURE - Abnormal Result Value Color, ur Straw Clarity, ur Clear Specific gravity, ur 1.003 pH, urine 7.0 Protein, ur ql Negative Glucose, ur ql Negative Ketones, ur Negative Bilirubin, ur Negative Blood, ur Negative Urobilinogen, ur <2.0 Nitrite, ur Negative Leukocyte esterase, ur 3+ (*) UA reflex comment Reflex to microscopic UA will be performed. CBC WITH AUTO DIFFERENTIAL - Abnormal WBC 3.9 Hgb 11.7 (*) Hct 35.5 (*) Plt 169 MPV 10.3 RBC 3.95 (*) MCV 89.9 MCH 29.6 MCHC 33.0 RDW CV 13.2 RDW SD 43.0 NRBC abs 0.00 COMPREHENSIVE METABOLIC PANEL - Abnormal Sodium 143 Potassium, pl 4.6 Chloride 108 CO2 24 Anion gap 11 BUN 14 Creatinine 1.50 (*) Glucose 76 Calcium 9.3 Bilirubin, total 0.2 Protein, pl 7.0 Albumin 4.0 Alk phos 124 ALT 15 AST 17 URINALYSIS, MICROSCOPIC ONLY - Abnormal WBC, ur 21-50 (*) RBC, ur 3-5 (*) Bacteria, ur Trace (*) Culture Reflex Comment Reflex to urine culture will be performed. EGFR - Abnormal eGFR 53 (*) URINE CULTURE DIFFERENTIAL AUTO Neutrophil abs 2.2 Imm gran abs 0.0 Lymphocyte abs 1.2 Monocyte abs 0.4 Eosinophil abs 0.1 Basophil abs 0.0 Neutrophil pct 55.5 Imm gran pct 0.3 Lymphocyte pct 31.8 Monocyte pct 9.0 Eosinophil pct 2.6 Basophil pct 0.8 No orders to display BP 142/80 Pulse 51 Temp 36.9 ??C (98.4 ??F) (Oral) Resp 15 Wt 89.2 kg (196 lb 10.4 oz) SpO2 100% BMI 25.94 kg/m?? MDM ED Course as of 10/24/23 0358 Time: 10/23 1843 Comment: Pt has been re-evaluated and informed his potassium levels are normal. Pt was informed that he has a UTI and was given a script for Keflex. Pt advised to follow up with PCP and he is agreeable with DC . By: Judy Cordova Final diagnoses: Abnormal laboratory test Acute cystitis with hematuria This note is prepared by Judy Cordova, acting as a scribe for Antonio Woodall MD. I electronically signed this note at 3:58 AM on 10/24/2023. I, Antonio Woodall MD, have personally performed the services described in the documentation, reviewed and edited the documentation which was dictated to the scribe in my presence, and it accurately records my words and actions. Antonio Woodall DO 10/24/23 0358 * Martha Lewis RN - 10/23/2023 2:37 PM CDT Pt presents to ED for report of high potassium level . On 10/20 two days ago potassium level was 5.6. Pt denies any SOB, chest pain, or palpitations. documented in this encounter Plan of Treatment Not on file documented as of this encounter Procedures Procedure Name Priority Date/Time Associated Diagnosis Comments EGFR STAT 10/23/2023 2:54 PM CDT DIFFERENTIAL AUTO STAT 10/23/2023 2:5 4 PM CDT URINALYSIS AND REFLEX TO MICROSCOPIC AND CULTURE STAT 10/23/2023 2:54 PM CDT CBC WITH AUTO DIFFERENTIAL STAT 10/23/2023 2:54 PM CDT URINALYSIS, MICROSCOPIC ONLY STAT 10/23/2023 2:54 PM CDT URINE CULTURE STAT 10/23/2023 2:54 PM CDT COMPREHENSIVE METABOLIC PANEL STAT 10/23/2023 2:54 PM CDT ECG 12-LEAD STAT 10/23/2023 2:50 PM CDT documented in this encounter Results * (ABNORMAL) eGFR (10/23/2023 2:54 PM CDT) [facility] eGFR 53(L) >=60 mL/min/1. 73 m2 Comment: Interpretive Data Reference Interval Normal ?>/= 90 mL/min/1.73m2 Mildly decreased* ? 60 - 89 mL/min/1.73m2 Mildly to moderately decreased ?45 - 59 mL/min/1.73m2 Moderately to severely decreased ??30 - 44 mL/min/1.73m2 Severely decreased ?15 - 29 mL/min/1.73m2 Kidney Failure ?< 15 ??mL/min/1.73m2 *Relative to young adult level Estimated glomerular filtration rate is determined by the 2020 CKD-EPI equation recommended by the National Kidney Foundation (A Unifying Approach to GFR Estimation: Recommendations of the NKF-ASK Task Force on Reassessing the Inclusion of Race in Diagnosing Kidney Disease, JASN 2020). The CKD-EPI equation should not be used for patients with unstable renal function and has not been validated in children and those over 70. Current interpretive data was last reviewed 2021. Testing performed by: [facility], [address] [place] [address]., [address] Blood 10/23/2023 2:54 PM CDT 10/23/2023 3:00 PM CDT us Antonio Woodall DO LAB BLOOD ORDERABLES Final Res ult SERA [address] [facility] Department [place] [address] * (ABNORMAL) Urine culture Urine, clean voided (10/23/2023 2:54 PM CDT) Report Final Report: Greater than or equal to 100,000 colonies/mL of Citrobacter koseri (.) Comment:Testing performed by : [facility], [address] [place]., [address] Organism CITROBACTER KOSERI SERA ACKERMAN Urine, clean voided 10/23/2023 2:54 PM CDT 10/23/2023 5:37 PM CDT Narrative SERA - 10/26/2023 7:30 AM CDT Urine culture reflexed based upon urinalysis results. Testing performed by [facility] Microbiology Laboratory ([phone]) Organism Antibiotic Method Susceptibility Citrobacter koseri Ampicillin INTERPRETATION Resistant Citrobacter koseri Cefazolin INTERPRETATION Susceptible Citrobacter koseri Nitrofurantoin INTERPRETATION Susceptible Citrobacter koseri Gentamicin INTERPRETATION Susceptible Citrobacter koseri Trimethoprim with Sulfamethoxazole INTERPRETATION Susceptible Citrobacter koseri Meropenem INTERPRETATION Susceptible Citrobacter koseri Cefepime INTERPRETATION Susceptible Citrobacter koseri Ciprofloxacin INTERPRETATION Susceptible Citrobacter koseri Ceftazidime INTERPRETATION Susceptible Citrobacter koseri Ceftriaxone INTERPRETATION Susceptible Citrobacter koseri Piperacillin/Tazobactam INTERPRETAT ION Susceptible John Nazario MD LAB MICROBIOLOGY - GENE RAL ORDERABLES Final Result Performing Organization Address City/[facility]/ZIP Co de Phone Number [address] [place] [place] [address] * (ABNORMAL) Urinalysis, microscopic only (10/23/2023 2:54 PM CDT) WBC, ur 21-50(A) 0 - 5 /HPF Comment:Testing performed by : [address] [address] RBC, ur 3-5(A) 0 - 2 /HPF SERA Comment:Testing performed by : [address] [address] Bacteria, ur Trace(A) SERA Comment:Testing performed by : [address] [address] Culture Reflex Comment Reflex to urine culture will be performed. SERA Comment:Testing performed by : [address] [address] Urine, clean voided 10/23/2023 2:54 PM CDT 10/23/2023 3:00 PM CDT us Antonio Woodall DO LAB URINE ORDERABLES Final Res ult Performing Organization Address City/[facility]/ZIP Co de Phone Number [address] [employer] [place], [place] [id number] * Differential, auto (10/23/2023 2:54 PM CDT) Neutrophil abs 2.2 1.5 - 6.5 K/cumm Comment:Testing performed by : [address] [address] Imm gran abs 0.0 0.0 - 0.1 K/cumm [facility] Comment:Testing performed by : [address] [address] Lymphocyte abs 1.2 0.8 - 3.3 K/cumm [facility] Comment:Testing performed by : [address] [address] Monocyte abs 0.4 0.2 - 0.8 K/cumm [facility] Comment:Testing performed by : [address] [address] Eosinophil abs 0.1 0.0 - 0.5 K/cumm [facility] Comment:Testing performed by : [address] [address] Basophil abs 0.0 0.0 - 0.1 K/cumm [facility] Comment:Testing performed by : [address] [address] Neutrophil pct 55.5 % [facility] Comment: Interpretive Data Percent cell count reference ranges are not reported, since discordance with absolute values may lead to misinterpretation of CBC data. Current Interpretive Data was last revised on 2017. Testing performed by: [address] [address] Imm gran pct 0.3 % [facility] Comment: Interpretive Data Percent cell count reference ranges are not reported, since discordance with absolute values may lead to misinterpretation of CBC data. Current Interpretive Data was last revised on 2017. Testing performed by: [address] [address] Lymphocyte pct 31.8 % [facility] Comment: Interpretive Data Percent cell count reference ranges are not reported, since discordance with absolute values may lead to misinterpretation of CBC data. Current Interpretive Data was last revised on 2017. Testing performed by: [address] [address] Monocyte pct 9.0 % SERA Comment: Interpretive Data Percent cell count reference ranges are not reported, since discordance with absolute values may lead to misinterpretation of CBC data. Current Interpretive Data was last revised on 2017. Testing performed by: [address] [address] Eosinophil pct 2.6 % SERA Comment: Interpretive Data Percent cell count reference ranges are not reported, since discordance with absolute values may lead to misinterpretation of CBC data. Current Interpretive Data was last revised on 2017. Testing performed by: [address] [address] Basophil pct 0.8 % SERA Comment: Interpretive Data Percent cell count reference ranges are not reported, since discordance with absolute values may lead to misinterpretation of CBC data. Current Interpretive Data was last revised on 2017. Testing performed by: [address] [address] Blood 10/23/2023 2:54 PM CDT 10/23/2023 3:00 PM CDT Antonio Woodall DO LAB BLOOD ORDERABLES Final Res ult [facility] [address] [facility] Department [place] [address] * (ABNORMAL) Urinalysis reflex to microscopic and culture Urine, clean voided (10/23/2023 2:54 PM CDT) Color, ur Straw Yellow Comment:Testing performed by : [address] [address] Clarity, ur Clear Clear SERA Comment:Testing performed by : [address] [address] Specific gravity, ur 1.003 1.003 - 1.030 SERA Comment:Testing performed by : [address] [address] pH, urine 7.0 SERA Comment: Interpretive Data ? Urine pH is affected by diet, medications, systemic acid-base disturbances, and renal tubular function. ??pH may affect urinary stone formation. ??For example, urine pH below 6.0 may help reduce the tendency for calcium phosphate stones and pH greater than 6.0 may reduce the tendency for uric acid stone formation. Source: [facility] Current Interpretive Data was last revised on 2017 Testing performed by: [facility], [address] [place] [address], [place]., [address] Protein, ur ql Negative Negative [facility]A Comment:Testing performed by : [address], [place]., [address] Glucose, ur ql Negative Negative SERA Comment:Testing performed by : [address], [place]., [address] Ketones, ur Negative Negative [facility]A Comment:Testing performed by : [address], [place]., [address] Bilirubin, ur Negative Negative [facility]A Comment:Testing performed by : [address], [place]., [address] Blood, ur Negative Negative [facility]A Comment:Testing performed by : [address], [place]., [address] Urobilinogen, ur <2.0 <2.0 mg/dL SERA Comment:Testing performed by : [address], [place]., [address] Nitrite, ur Negative Negative [facility]A Comment:Testing performed by : [address] [address] Leukocyte esterase, ur 3+(A) Negative SERA Comment:Testing performed by : [address], [place]., [address] UA reflex comment Reflex to microscopic UA will be performed. SERA Comment:Testing performed by : [address], [place]., [address] Urine, clean voided 10/23/2023 2:54 PM CDT 10/23/2023 3:00 PM CDT Antonio Woodall DO LAB MICROBIOLOGY - GENERAL ORD ERABLES Final Result [facility] [address] [facility] Department [place] [address] * (ABNORMAL) Comprehensive metabolic panel (10/23/2023 2:54 PM CDT) Sodium 143 135 - 145 mmol/L Comment:Testing performed by : [address] [address] Potassium, pl 4.6 3.3 - 4.9 mmol/L SERA Comment:Testing performed by : [address], [place]., [address] Chloride 108 97 - 110 mmol/L SERA Comment:Testing performed by : [address] [address] CO2 24 22 - 32 mmol/L SERA Comment:Testing performed by : [address] [address] Anion gap 11 2 - 15 mmol/L SERA Comment:Testing performed by : [address] [address] BUN 14 6 - 25 mg/dL SERA Comment:Testing performed by : [address] [address] Creatinine 1.50(H) 0.80 - 1.30 mg/dL [facility]A Comment:Testing performed by : [address] [address] Glucose 76 70 - 199 mg/dL SERA Comment: Interpretive Data Fasting glucose >/= 126 mg/dl is diagnostic for diabetes. ?? Fasting is defined as no caloric intake for at least 8 hours. Fasting glucose between 100 mg/dl to 125 mg/dl is diagnostic of prediabetes. In a patient with classic symptoms of hyperglycemia or hyperglycemic crisis, a random glucose >/= 200 mg/dl is diagnostic for diabetes. In the absence of unequivocal hyperglycemia, results should be confirmed by repeat testing. The classification and Diagnosis of Diabetes Diabetes Care 202; 46: S19-S40. Current interpretive data was last revised 2022. Testing performed by: [address] [address] Calcium 9.3 8.5 - 10.3 mg/dL SERA Comment:Testing performed by : [address] [address] Bilirubin, total 0.2 0.1 - 1.2 mg/dL SERA Comment:Testing performed by : [address] [address] Protein, pl 7.0 6.5 - 8.5 g/dL SERA Comment:Testing performed by : [address] [address] Albumin 4.0 3.5 - 5.0 g/dL SERA Comment:Testing performed by : [address], [address] Alk phos 124 40 - 130 Units/L SERA Comment:Testing performed by : [address], [address] ALT 15 7 - 55 Units/L SERA Comment:Testing performed by : [address] [address] AST 17 10 - 50 Units/L SERA Comment:Testing performed by : [address] [address] Blood 10/23/2023 2:54 PM CDT 10/23/2023 3:00 PM CDT us Antonio Woodall DO LAB BLOOD ORDERABLES Final Res ult [facility] [address] [facility] Department of Laboratories [place], [place] [id number] * (ABNORMAL) CBC with auto differential (10/23/2023 2:54 PM CDT) WBC 3.9 3.8 - 9.9 K/cumm Comment:Testing performed by : [address] [address] Hgb 11.7(L) 13.0 - 17.5 g/dL SERA Comment:Testing performed by : [address] [address] Hct 35.5(L) 38.9 - 50.3 % SERA Comment:Testing performed by : [address], [address] Plt 169 150 - 400 K/cumm SERA Comment:Testing performed by : [address], [address] MPV 10.3 9.1 - 12.3 fL SERA Comment:Testing performed by : [address], [address] RBC 3.95(L) 4.30 - 5.80 M/cumm [facility] Comment:Testing performed by : [address], [address] MCV 89.9 81.3 - 96.4 fL SERA Comment:Testing performed by : [address], [address] MCH 29.6 27.1 - 33.3 pg SERA Comment:Testing performed by : [address], [address] MCHC 33.0 32.3 - 35.7 g/dL SERA Comment:Testing performed by : [address], [address] RDW CV 13.2 11.1 - 14.9 % SERA Comment:Testing performed by : [address], [address] RDW SD 43.0 35.7 - 48.1 fL SERA Comment:Testing performed by : [address], [address] NRBC abs 0.00 0.00 - 0.01 K/cumm SERA Comment:Testing performed by : [address], [address] Blood 10/23/2023 2:54 PM CDT 10/23/2023 3:00 PM CDT us Antonio Woodall DO LAB BLOOD ORDERABLES Final Res ult [facility]A [address] [facility] Department [place] [address] * ECG 12 lead (10/23/2023 2:50 PM CDT) Pathologist [facility] Ventricular Rate EKG/Min [address] [facility] Atrial Rate 58 BPM [facility] MA-Interval (MSEC) [address] [facility] QRS-Interval (MSEC) [address] [facility] QT-Interval (MSEC) 396 ms [facility] QTc 388 ms [facility] P [place] 74 degrees [facility] R [place] -10 degrees [facility] T [place] 56 degrees [facility] Diagnosis Sinus bradycardia Otherwise normal ECG When compared with ECG of 04-FEB-2022 12:52, No significant change was found Confirmed by ELAINE ROBISON MD ([id number]) on 10/24/2023 10:05:47 AM [facility] 10/23/2023 2:50 PM CDT 10/24/2023 10:05 AM CDT Antonio Woodall DO ECG ORDERABLES Final Result [facility] documented in this encounter Visit Diagnoses Diagnosis Abnormal laboratory test- Primary Other abnormal clinical finding Acute cystitis with hematuria documented in this encounter Administered Medications Inactive Administered Medications - up to 3 most recent administrations Medication Order MAR Action Action Date Dose Rate Site cefTRIAXone (ROCEPHIN) 1,000 mg/10 mL in sterile water (premix) 1,000 mg 1,000 mg, intravenous, at 120 mL/hr, Administer over 5 Minutes, Once, On 10/23/23 at 1821, For 1 dose, Indications: Urinary Tract/Genitourinary InfectionIndications:Urinar y Tract/Genitourinary Infection Given 10/23/2023 6:49 PM CDT 1,000 mg 120 mL/hr documented in this encounter Active and Recently Administered Medications Times are shown in CDT. Scheduled Medication Order 10/21/2023 10/22/2023 10/23/2023 cefTRIAXone (ROCEPHIN) 1,000 mg/10 mL in sterile water (premix) 1,000 mg (COMPLETED) 1,000 mg, intravenous, at 120 mL/hr, Administer over 5 Minutes, Once, On 10/23/23 at 1821, For 1 dose, Indications: Urinary Tract/Genitourinary Infection 1849 (Given - Provid er: Jocelyne Washington) documented in this encounter Orders Medications Ordered That Zach ht Not Have Been Administered Count Last Ordered Date First Ordered Date cefTRIAXone (ROCEPHIN) 1,000 mg/10 mL in sterile water (premix) 1,000 mg 1 10/23/2023 IV Count Last Ordered Date First Orde red Date SALINE LOCK IV 1 10/23/2023 documented in this encounter Care Teams Pattern Generator Operator Relationship Specialty Start Date End Date Juan M Doll MD [address] [facility] [address] [address] PCP - General Family Medicine 09/24/22 Khang Osullivan MD [address] [address] Consulting Physician Gastroenterology 11/25/22 documented as of this encounter
--- OUTSIDE RECORDS SUMMARY | 2024-03-04 10:33 | XMS_ITS | Encounter Summary ---
Author Organization [facility] Address [address] [facility] [address] [place] [address] Phone Care Team Providers Care Safety Administrator Name Role Phone Juan M Doll MD Primary Care Provider [phone] Khang Osullivan MD Unavailable Encounter Details Date Type Department Care Team (Late st Contact Info) Description 12/16/2023 Telephone [facility] Surgery [address] [facility] [address] [place] [address] Haleigh Finley RMA Social History Tobacco Use Types Packs/Day Years [...] on file 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 Wicho * Telephone Encounter - Haleigh Finley RMA - 12/16/2023 9:31 AM CDT Pt calling to report UTI was treated by PCP. The [facility]IC is going well with no issues and is not wanting to schedule surgery. He was advised by PA @ PCP to follow up with urology. Pt is reporting no issues and no concerns. Will route message to to see if he recommends repeat imaging or just to return to clinic as needed. Wicho documented in this encounter Plan of Treatment Not on file documented as of this encounter Visit Diagnoses Not on filedocumented in this encounter Care Teams Safety Administrator Relationship Specialty Start Date End Date Juan M Doll MD [address] [facility] [address] [place] [address] PCP - General Family Medicine 09/24/22 Khang Osullivan MD [address] [facility] [address] [address] Consulting Physician Gastroenterology 11/25/22 documented as of this encounter
--- OUTSIDE RECORDS SUMMARY | 2024-03-04 10:33 | XMS_ITS | Encounter Summary ---
Author Organization [facility] Address [address] [facility] [address] [place] [address] Care Team Providers Care Rn Obgyn Name Role Phone Juan M Doll MD Primary Care Provider [phone] Encounter Details Date Type Department Care Team (Late st Contact Info) Description 10/30/2022 Telephone [facility] Nephrology at [place] [id number] 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 Lab orders entered for [facility], patient voiced no concerns. * Telephone Encounter - Kaykay Andrea MA - 10/30/2022 1:26 PM CDT LMOM requesting CB. * Telephone Encounter - Kaykay Andrea MA - 10/30/2022 1:25 PM CDT ----- Message from Feliberto Munoz MD sent at 10/30/2022 1:09 PM CDT ----- Creatinine much better at 1.49 which is encouraging, mild anemia. No abnormal protein in the urine which is also good. Can repeat a BMP, CBC, iron panel, B12 and folate in 3 months or earlier if he wants. Thank you documented in this encounter Plan of Treatment Scheduled Orders Name Type Priority Associated Diagnoses Orde r Schedule CBC with auto differential Lab Routine Stage 3b chronic kidney disease (HCC) Benign hypertensive kidney disease with chronic kidney disease stage I through stage IV, or unspecified(403.10) Anemia in stage 3 chronic kidney disease, unspecified whether stage 3a or 3b CKD (HCC) Expected: 10/30/2022, Expires: 10/31/2023 documented as of this encounter Procedures Procedure Name Priority Date/Time Associated Diagnosis Comments IRON PROFILE W/ IBC Routine 01/27/2023 1 2:20 PM FLAT SORTER PROCESSOR Stage 3b chronic kidney disease (HCC) Benign hypertensive kidney disease with chronic kidney disease stage I through stage IV, or unspecified(403.10) Anemia in stage 3 chronic kidney disease, unspecified whether stage 3a or 3b CKD (HCC) CBC WITH AUTO DIFFERENTIAL Routine 01/27/2023 12:20 PM FLAT SORTER PROCESSOR FOLATE Routine 01/27/2023 12:20 PM FLAT SORTER PROCESSOR Stage 3b chronic kidney disease (HCC) Benign hypertensive kidney disease with chronic kidney disease stage I through stage IV, or unspecified(403.10) Anemia in stage 3 chronic kidney disease, unspecified whether stage 3a or 3b CKD (HCC) VITAMIN B12 Routine 01/27/2023 12:20 PM FLAT SORTER PROCESSOR Stage 3b chronic kidney disease (HCC) Benign hypertensive kidney disease with chronic kidney disease stage I through stage IV, or unspecified(403.10) Anemia in stage 3 chronic kidney disease, unspecified whether stage 3a or 3b CKD (HCC) BASIC METABOLIC PANEL Routine 01/27/2023 12:20 PM FLAT SORTER PROCESSOR Stage 3b chronic kidney disease (HCC) Benign hypertensive kidney disease with chronic kidney disease stage I through stage IV, or unspecified(403.10) Anemia in stage 3 chronic kidney disease, unspecified whether stage 3a or 3b CKD (HCC) documented in this encounter Results * (ABNORMAL) CBC with auto differential (01/27/2023 12:20 PM FLAT SORTER PROCESSOR) WBC 3.1(L) 3.8 - 10.8 Thousand/u L [facility] RBC, POC 4.08(L) 4.20 - 5.80 Million/uL [facility] Hgb 12.4(L) 13.2 - 17.1 g/dL [facility] Hct 37.3(L) 38.5 - 50.0 % [facility] MCV 91.4 80.0 - 100.0 fL [facility] MCH 30.4 27.0 - 33.0 pg [facility] MCHC 33.2 32.0 - 36.0 g/dL [facility] Rdw 12.5 11.0 - 15.0 % [facility] Platelets 169 140 - 400 Thousand/u L [facility] MPV 10.7 7.5 - 12.5 fL [facility] Neutrophils, abs 1,349(L) 1,500 - 7,800 cells/uL [facility] Lymphocytes, abs 1,287 850 - 3,900 cells/uL [facility] Monocyte abs 344 200 - 950 cells/uL [facility] Eosinophils, abs 71 15 - 500 cells/uL [facility] Basophils, abs 50 0 - 200 cells/uL [facility] Neutrophils 43.5 % [facility] Lymphocyte pct 41.5 % [facility] Monocytes 11.1 % [facility] Eosinophils 2.3 % [facility] Basophils 1.6 % [facility] 01/27/2023 12:2 0 PM FLAT SORTER PROCESSOR 01/27/2023 12:23 PM FLAT SORTER PROCESSOR Feliberto Munoz MD LAB BLOOD ORDERABLES Final Re sult Performing Organization Address City/State/[facility] Co de Phone Number RENE Adhikari [address] [place] [address] * (ABNORMAL) Folate (01/27/2023 12:20 PM FLAT SORTER PROCESSOR) Folate, Serum 3.9(L) ng/mL [facility] Comment: ? Reference Range ? Low: ? <3.4 ? Borderline: ?3.4-5.4 ? Normal: ?>5.4 Blood 01/27/2023 12:2 0 PM FLAT SORTER PROCESSOR 01/27/2023 12:23 PM FLAT SORTER PROCESSOR Feliberto Munoz MD LAB BLOOD ORDERABLES Final Re sult Performing Organization Address City/State/[facility] Co de Phone Number [facility] [address] [place] [address] * Vitamin B12 (01/27/2023 12:20 PM FLAT SORTER PROCESSOR) Pathologist [facility] Vitamin B12 849 200 - 1,100 pg/mL [facility] Blood 01/27/2023 12:2 0 PM FLAT SORTER PROCESSOR 01/27/2023 12:23 PM FLAT SORTER PROCESSOR Feliberto Munoz MD LAB BLOOD ORDERABLES Final Re sult Performing Organization Address [facility] Co de Phone Number [facility] [address] [place] [address] * Iron profile w/ IBC (01/27/2023 12:20 PM FLAT SORTER PROCESSOR) Pathologist [facility] Iron 71 50 - 180 mcg/dL [facility] TIBC 283 250 - 425 mcg/dL (calc) [facility] Iron saturation 25 20 - 48 % (calc) [facility] Blood 01/27/2023 12:2 0 PM FLAT SORTER PROCESSOR 01/27/2023 12:23 PM FLAT SORTER PROCESSOR Feliberto Munoz MD LAB BLOOD ORDERABLES Final Re sult Performing Organization Address [facility] Co de Phone Number [facility] [address] [place] [address] * (ABNORMAL) Basic metabolic panel (01/27/2023 12:20 PM FLAT SORTER PROCESSOR) Glucose 75 65 - 99 mg/dL [facility] Comment: ? Fasting reference interval BUN 19 7 - 25 mg/dL [facility] Creatinine 1.43(H) 0.70 - 1.30 mg/dL [facility] eGFR 56(L) > OR = 60 mL/min/1.7 3m2 [facility] BUN/creat ratio 13 6 - 22 (calc) [facility] Sodium 140 135 - 146 mmol/L [facility] Potassium, pl 4.6 3.5 - 5.3 mmol/L [facility] Chloride 108 98 - 110 mmol/L [facility] CO2 27 20 - 32 mmol/L [facility] Calcium 9.0 8.6 - 10.3 mg/dL [facility] Blood 01/27/2023 12:2 0 PM FLAT SORTER PROCESSOR 01/27/2023 12:23 PM FLAT SORTER PROCESSOR us Feliberto Munoz MD LAB BLOOD ORDERABLES Final Re sult [facility] [address] [place] [address] documented in this encounter Visit Diagnoses Diagnosis Stage 3b chronic kidney disease (HCC)- Primary Benign hypertensive kidney disease with chronic kidney disease stage I through stage IV, or unspecified(403.10) Benign hypertensive kidney disease with chronic kidney disease stage I through stage IV, or unspecified Anemia in stage 3 chronic kidney disease, unspecified whether stage 3a or 3b CKD (HCC) documented in this encounter Care Teams Rn Obgyn Relationship Specialty Start Date End Date Juan M Doll MD [address] [facility] [address] [place] [address] PCP - General Family Medicine 09/24/22 documented as of this encounter
--- OUTSIDE RECORDS SUMMARY | 2024-03-04 10:33 | XMS_ITS | Encounter Summary ---
Author Organization [facility] Address [address] [place] [address] Care Team Providers Care Log Brander Name Role Phone Juan M Doll MD Primary Care Provider [phone] Khang Osullivan MD Unavailable Reason for Visit * Reason Comments Annual Exam Encounter Details Date Type Department Care Team (Late st Contact Info) Description 03/29/2023 4:15 PM LIVESTOCK SHOWMAN Office Visit [facility] Family Medicine [address] [place] [address] Juan M Doll MD [address] [place] [address] Annual physical exam (Primary Dx); Prostate cancer screening Social History Tobacco Use Types Packs/Day Years [...] 0 09/24/2022 Personal Safety Answer Date Recorded Getting School Help Needed Not on file 02/22 Sex and Gender Information Value Date Recorded Sex Assigned at Not on file 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 Gender Identity Not on file Sexual Orientation Not on file documented as of this encounter Last Filed Vital Signs Vital Sign Reading Time Taken Comments Blood Pressure 160/94 03/29/2023 4:28 PM LIVESTOCK SHOWMAN Pulse 55 03/29/2023 4:28 PM LIVESTOCK SHOWMAN Temperature 36.7 ??C (98.1 ??F) 03/29/2023 4:28 PM CS T Respiratory Rate - - Oxygen Saturation 97% 03/29/2023 4:28 PM LIVESTOCK SHOWMAN Inhaled Oxygen Concentration - - Weight 84.9 kg (187 lb 3.2 oz) 03/29/2023 4:28 P M LIVESTOCK SHOWMAN Height 185.4 cm (6' 1 ) 03/29/2023 4:28 PM LIVESTOCK SHOWMAN Body Mass Index 24.7 03/29/2023 4:28 PM LIVESTOCK SHOWMAN documented in this encounter Progress Notes * Juan M Doll MD - 03/29/2023 4:15 PM CST Images from the original note were not included. Subjective/Objective Patient ID: Jean-Pierre Sofia is a 57 y.o. male. Chief Complaint Annual Exam 57-year-old male. He does see Nephrology. Currently not on an FARZANEH inhibitor or SG LT 2s. Creatinineis stable. He has checked his blood pressure at home is little labile. I would say more 140s to 150s. No current shortness of breath or chest pain. Weight stable does not smoke Allergies as of 03/29/2023 - Reviewed 03/29/2023 Allergen Reaction Noted Amlodipine besylate Swelling 09/11/2022 Doxazosin Other (See comments) 09/24/2022 Tetracycline Swelling 05/28/2021 Glutathione (bulk) Unknown 11/29/2017 Prozac [fluoxetine] Unknown 11/29/2017 Sulfa (sulfonamide antibiotics) Diarrhea 02/04/2022 Outpatient Encounter Medications as of 03/29/2023 Medication Sig Dispense Refill bisacodyL 5 mg tablet 2 tabs daily (Patient taking differently: as needed 2 tabs daily) 60 tablet 5 carvediloL (COREG) 12.5 mg tablet Take 1 tablet (12.5 mg total) by mouth 2 (two) times a day with meals 180 tablet 3 chlorthalidone 50 mg tablet Take 1 tablet (50 mg total) by mouth daily 90 tablet 3 cholecalciferol (VITAMIN D-3) 25 mcg (1,000 unit) tablet Take 4 tablets (4,000 Units total) by mouth daily docusate sodium (COLACE) 100 mg capsule Take 1 capsule (100 mg total) by mouth 2 (two) times a day (Patient taking differently: Take 1 capsule (100 mg total) by mouth as needed) 60 capsule 5 doxazosin (CARDURA) 2 mg tablet Take 2 tablets (4 mg total) by mouth nightly 60 tablet 2 fluticasone propion-salmeteroL (Wixela Inhub) 250-50 mcg/dose diskus inhaler Inhale 1 puff 2 (two) times a day Rinse mouth with water after use. Do not swallow. folic acid (FOLVITE) 1 mg tablet Take 1 tablet (1 mg total) by mouth daily lactobacillus comb no.10 (Probiotic) 20 billion cell capsule lactulose solution 10 gram/15mL 30 cc daily , prn 473 mL 5 pancrelipase (Zenpep) 3,000 units of lipase capsule,delayed release(DR/EC) 3 (three) times a day PARoxetine (PAXIL) 30 mg tablet Take 1 tablet (30 mg total) by mouth every morning. 30 tablet 3 polycarbophil (FIBERCON) 625 mg tablet Take 1 tablet (625 mg total) by mouth daily polyethylene glycol (MIRALAX) 17 gram packet Take 1 packet (17 g total) by mouth daily 30 packet 0 venlafaxine XR (EFFEXOR-XR) 37.5 mg 24 hr capsule Take 1 capsule (37.5 mg total) by mouth daily. 30capsule 3 albuterol HFA (ProAir HFA) 90 mcg/actuation inhaler Inhale 2 puffs every 4 (four) hours as needed for wheezing or shortness of breath (Patient not taking: Reported on 03/24/2023) 3 each 3 [DISCONTINUED] empty container (Enema Bottle) bottle Distilled water [DISCONTINUED] tamsulosin (FLOMAX) 0.4 mg extended release capsule Take 1 capsule (0.4 mg total) bymouth nightly (Patient not taking: Reported on 03/24/2023) 90 capsule 3 [DISCONTINUED] turmeric (CURCUMIN MISC) [DISCONTINUED] UNABLE TO FIND Take 1 each by mouth daily Med Name: tumeric/cucumin No facility-administered encounter medications on file as of 03/29/2023. Past Medical History: Diagnosis Date Anxiety Arthritis 1977 Asthma Autoimmune disease (CMS/HCC) ([facility]) 1999 Cancer (CMS/HCC) ([facility]) 2002 Chronic fatigue Chronic kidney disease Apr [...] Drinking: Not on file Review of Systems Constitutional: Negative for fatigue and fever. Respiratory: Negative for cough and shortness of breath. Cardiovascular: Negative for chest pain and leg swelling. Gastrointestinal: Negative for abdominal pain and nausea. Musculoskeletal: Positive for arthralgias. Negative for back pain and neck pain. Neurological: Negative for seizures and headaches. Psychiatric/Behavioral: Negative for confusion. The patient is not nervous/anxious. Vitals: 03/29/23 1628 BP: 160/94 BP Location: Left arm Patient Position: Sitting Pulse: 55 Temp: 36.7 ??C (98.1 ??F) TempSrc: Temporal SpO2: 97% Weight: 84.9 kg (187 lb 3.2 oz) Height: 185.4 cm (6' 1 ) Physical Exam Constitutional: Appearance: He is well-developed. Cardiovascular: Rate and Rhythm: Normal rate and regular rhythm. Heart sounds: Normal heart sounds. Pulmonary: Effort: Pulmonary effort is normal. Breath sounds: Normal breath sounds. Abdominal: General: Bowel sounds are normal. Palpations: Abdomen is soft. Skin: General: Skin is warm and dry. Neurological: Mental Status: He is alert and oriented to person, place, and time. Psychiatric: Speech: Speech normal. PHQ Screening Assessment/Plan Assessment and Plan Diagnoses and all orders for this visit: Annual physical exam (Primary) - CBC with auto differential; Future - Lipid panel; Future Prostate cancer screening - PSA screen; Future 57-year-old male. He sees Nephrology and GI. Meds have been reviewed. Creatinine 1.43. He is due for his annual PSA. He keeps up on his colonoscopies. Had one 21. Due in . His weight stable, habitsnegative. Mood stable. Patient will follow-up with Nephrology in regards to medications blood pressure management. Orders Placed This Encounter CBC with auto differential Standing Status: Future Number of Occurrences: 1 Standing Expiration Date: 03/29/2024 Lipid panel Standing Status: Future Number of Occurrences: 1 Standing Expiration Date: 03/29/2024 PSA screen Standing Status: Future Number of Occurrences: 1 Standing Expiration Date: 03/29/2024 Specific topics reviewed: drugs, ETOH, and tobacco, importance of regular dental care, importance of regular exercise, importance of varied diet, minimize junk food, and seat belts. Juan M Doll MD STOCK SHOWMAN documented in this encounter Plan of Treatment Not on file documented as of this encounter Procedures Procedure Name Priority Date/Time Associated Diagnosis Comments PSA SCREEN Routine 04/02/2023 12:21 PM LIVESTOCK SHOWMAN Prostate cancer screening CBC WITH AUTO DIFFERENTIAL Routine 04/02/2023 12:21 PM LIVESTOCK SHOWMAN Annual physical exam LIPID PANEL Routine 04/02/2023 12:21 PM LIVESTOCK SHOWMAN Annual physical exam documented in this encounter Results * PSA screen (04/02/2023 12:21 PM LIVESTOCK SHOWMAN) PSA 0.83 < OR = 4.00 ng/mL [facility] Comment: The total PSA value from this assay system is standardized against the WHO standard. The test result will be approximately 20% lower when compared to the equimolar-standardized total PSA (Charles Dara). Comparison of serial PSA results should be interpreted with this fact in mind. This test was performed using the Siemens chemiluminescent method. Values obtained from different assay methods cannot be used interchangeably. PSA levels, regardless of value, should not be interpreted as absolute evidence of the presence or absence of disease. Blood 04/02/2023 12:2 1 PM LIVESTOCK SHOWMAN 04/02/2023 12:23 PM LIVESTOCK SHOWMAN Narrative [facility] - 04/03/2023 5:37 AM LIVESTOCK SHOWMAN FASTING:YES FASTING: YES Juan M Doll MD LAB BLOOD ORDERABLES Final Re sult LYNN López [employer] [address] [place] [address] * Lipid panel (04/02/2023 12:21 PM LIVESTOCK SHOWMAN) Cholesterol 157 <200 mg/dL [facility] HDL 78 > OR = 40 mg/dL [facility] Triglycerides 31 <150 mg/dL [facility] LDL 70 mg/dL (calc) [facility] Comment: Reference range: <100 Desirable range <100 mg/dL for primary prevention; ?? <70 mg/dL for patients with CHD or diabetic patients with > or = 2 CHD risk factors. LDL-C is now calculated using the Jesse-Nasra calculation, which is a validated novel method providing better accuracy than the Friedewald equation in the estimation of LDL-C. Jesse LEWIS et al. MONICA. 2013;310(19): 8828-8363 (http://education.Merge Social.iSentium/faq/LDP001) Chol/HDL ratio 2.0 <5.0 (calc) Lynn Adhikari Non-HDL, (LDL+VLDL) 79 <130 mg/dL (calc) [facility] Comment: For patients with diabetes plus 1 major ASCVD risk factor, treating to a non-HDL-C goal of <100 mg/dL (LDL-C of <70 mg/dL) is considered a therapeutic option. Blood 04/02/2023 12:2 1 PM LIVESTOCK SHOWMAN 04/02/2023 12:23 PM LIVESTOCK SHOWMAN Narrative [facility] - 04/03/2023 5:37 AM LIVESTOCK SHOWMAN FASTING:YES FASTING: YES us Juan M Doll MD LAB BLOOD ORDERABLES Final Re sult [facility] [address] [place] [address] * (ABNORMAL) CBC with auto differential (04/02/2023 12:21 PM LIVESTOCK SHOWMAN) WBC 3.0(L) 3.8 - 10.8 Thousand/u L [facility] RBC, POC 4.31 4.20 - 5.80 Million/uL [facility] Hgb 13.1(L) 13.2 - 17.1 g/dL [facility] Hct 39.3 38.5 - 50.0 % [facility] MCV 91.2 80.0 - 100.0 fL [facility] MCH 30.4 27.0 - 33.0 pg [facility] MCHC 33.3 32.0 - 36.0 g/dL [facility] Rdw 12.8 11.0 - 15.0 % [facility] Platelets 156 140 - 400 Thousand/u L [facility] MPV 10.6 7.5 - 12.5 fL [facility] Neutrophils, abs 1,443(L) 1,500 - 7,800 cells/uL [facility] Lymphocytes, abs 1,134 850 - 3,900 cells/uL [facility] Monocyte abs 285 200 - 950 cells/uL [facility] Eosinophils, abs 78 15 - 500 cells/uL [facility] Basophils, abs 60 0 - 200 cells/uL [facility] Neutrophils 48.1 % [facility] Lymphocyte pct 37.8 % [facility] Monocytes 9.5 % [facility] Eosinophils 2.6 % [facility] Basophils 2.0 % [facility] Blood 04/02/2023 12:2 1 PM LIVESTOCK SHOWMAN 04/02/2023 12:23 PM LIVESTOCK SHOWMAN Narrative [facility] - 04/03/2023 5:37 AM LIVESTOCK SHOWMAN FASTING:YES FASTING: YES us Juan M Doll MD LAB BLOOD ORDERABLES Final Re sult LYNN [facility] [address] [place] [address] documented in this encounter Visit Diagnoses Diagnosis Annual physical exam- Primary Routine general medical examination at a health care facility Prostate cancer screening Special screening for malignant neoplasm of prostate documented in this encounter Discontinued Medications Medication Sig Discontinue Reason Start Date End Da te empty container (Enema Bottle) bottle Distilled water Therapy completed 03/29/2023 tamsulosin (FLOMAX) 0.4 mg extended release capsule Take 1 capsule (0.4 mg total) by mouth nightly Therapy completed 11/04/2022 03/29/2023 turmeric (CURCUMIN MISC) Therapy completed 03/29/2023 UNABLE TO FIND Take 1 each by mouth daily Med Name: tumeric/cucumin Therapy completed 03/29/2023 documented as of this encounter Historical Medications * This list may reflect changes made after this encounter. pancrelipase (Zenpep) 3,000 units of lipase capsule,delayed release(DR/EC) 3 (three) times a day 11/10/2023 added in this encounter Care Teams Log Brander Relationship Specialty Start Date End Date Juan M Doll MD [address] [place] [address] PCP - General Family Medicine 09/24/22 Khang Osullivan MD [address] [facility] [address] [address] Consulting Physician Gastroenterology 11/25/22 documented as of this encounter
--- OUTSIDE RECORDS SUMMARY | 2024-03-04 10:33 | XMS_ITS | Encounter Summary ---
Author Organization [facility] Medical Group Address [address] [place] [address] Care Team Providers Care Spa Director Name Role Phone Juan M Doll MD Primary Care Provider [phone] Encounter Details Date Type Department Care Team (Late st Contact Info) Description 09/29/[address] 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 PYLORI BREATH TEST Routine 09/29/2022 12:51 PM CDT documented in this encounter Results * (ABNORMAL) H. pylori breath test (09/29/2022 12:51 PM CDT) H. pylori, breath test DETECTED( A) NOT DETECTED [email or web address] Comment: Antimicrobials, proton pump inhibitors, and bismuth preparations are known to suppress H. pylori, and ingestion of these prior to H. pylori diagnostic testing may lead to false negative results. If clinically indicated, the test may be repeated on a new specimen obtained two weeks after discontinuing treatment. However, a positive result is still clinically valid. 09/29/2022 12:5 1 PM CDT 09/29/2022 12:52 PM CDT us Juan M Doll MD LAB BODY FLUIDS AND STOOLS OR DERABLES Final Result [email or web address] [address] [place] [address] documented in this encounter Visit Diagnoses Not on filedocumented in this encounter Care Teams Spa Director Relationship Specialty Start Date End Date Juan M Doll MD [address] [place] [address] PCP - General Family Medicine 09/24/22 documented as of this encounter
--- OUTSIDE RECORDS SUMMARY | 2024-03-04 10:33 | XMS_ITS | Encounter Summary ---
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 OWCASE CLEANER * Telephone Encounter - Feliberto Munoz MD - 03/30/2023 2:37 PM CST Patient seen by Dr. Doll yesterday and blood pressure elevated in the office. Have him increase his doxazosin to 6 mg at bedtime and monitor BP and he has an appointment with me in early April. Thank you OWCASE CLEANER documented in this encounter Plan of Treatment Not on file documented as of this encounter Visit Diagnoses Not on filedocumented in this encounter Care Teams Furniture Arranger Relationship Specialty Start Date End Date Juan M Doll MD [address] [place] [address] PCP - General Family Medicine 09/24/22 Khang Osullivan MD [address] [facility] [address] [address] Consulting Physician Gastroenterology 11/25/22 documented as of this encounter
--- OUTSIDE RECORDS SUMMARY | 2024-03-04 10:33 | XMS_ITS | Encounter Summary ---
Author Organization [facility] Healthcare Address [address] [place] [address] Care Team Providers Care Inspector Timers Name Role Phone Juan M Doll MD Primary Care Provider [phone] Khang Osullivan MD Unavailable Reason for Visit * Reason Comments Follow-up ER follow up UTI Encounter Details Date Type Department Care Team (Late st Contact Info) Description 11/10/2023 11:00 AM CDT Office Visit [facility] Family Medicine at [address] [place] [address] Pao Dejesus, JAMIN [address] [place] [address] [id number] Acute cystitis without hematuria (Primary Dx) Social History Tobacco Use Types Packs/Day Years [...] on file 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 Gender Identity Not on file Sexual Orientation Not on file documented as of this encounter Last Filed Vital Signs Vital Sign Reading Time Taken Comments Blood Pressure 122/70 11/10/2023 10:53 AM CDT Pulse 54 11/10/2023 10:53 AM CDT Temperature 36.7 ??C (98.1 ??F) 11/10/2023 10:53 AM C DT Respiratory Rate 18 11/10/2023 10:53 AM CDT Oxygen Saturation 99% 11/10/2023 10:53 AM CDT Inhaled Oxygen Concentration - - Weight 89.2 kg (196 lb 9.6 oz) 11/10/2023 10:53 AM CDT Height 185.4 cm (6' 1 ) 11/10/2023 10:53 AM CDT Body Mass Index 25.94 11/10/2023 10:53 AM CDT documented in this encounter Progress Notes * Pao Dejesus PA - 11/10/2023 11:00 AM CDT Images from the original note were not included. Subjective/Objective Visit date: 11/10/2023 Patient ID: Jean-Pierre Sofia is a 57 y.o. male. Chief Complaint Chief Complaint Patient presents with Follow-up ER follow up UTI Current Outpatient Medications: albuterol HFA (ProAir HFA) 90 mcg/actuation inhaler, Inhale 2 puffs every 4 (four) hours as needed for wheezing or shortness of breath, Disp: 3 each, Rfl: 3 carvediloL (COREG) 12.5 mg tablet, Take 1 tablet (12.5 mg total) by mouth 2 (two) times a day with meals, Disp: 180 tablet, Rfl: 3 chlorthalidone (HYGROTON) 50 mg tablet, Take 1 tablet (50 mg total) by mouth daily, Disp: 90 tablet, Rfl: 3 cholecalciferol (VITAMIN D-3) 25 mcg (1,000 unit) tablet, Take 4 tablets (4,000 Units total) by mouth daily, Disp: , Rfl: doxazosin (CARDURA) 2 mg tablet, Take 1 tablet (2 mg total) by mouth every morning, Disp: 90 tablet, Rfl: 3 doxazosin (CARDURA) 8 mg tablet, Take 1 tablet (8 mg total) by mouth nightly, Disp: 90 tablet, Rfl:3 fluticasone propion-salmeteroL (Wixela Inhub) 250-50 mcg/dose diskus inhaler, INHALE 1 PUFF BY MOUTH TWICE DAILY. RINSE MOUTH WITH WATER AFTER USE. DO NOT SWALLOW, Disp: 60 each, Rfl: 5 folic acid (FOLVITE) 1 mg tablet, Take 1 tablet (1 mg total) by mouth daily, Disp: , Rfl: lactobacillus comb no.10 (Probiotic) 20 billion cell capsule, , Disp: , Rfl: PARoxetine (PAXIL) 30 mg tablet, Take 1 tablet (30 mg total) by mouth every morning., Disp: 30 tablet, Rfl: 3 polycarbophil (FIBERCON) 625 mg tablet, Take 1 tablet (625 mg total) by mouth daily, Disp: , Rfl: polyethylene glycol (MIRALAX) 17 gram packet, Take 1 packet (17 g total) by mouth daily, Disp: 30 packet, Rfl: 0 venlafaxine XR (EFFEXOR-XR) 37.5 mg 24 hr capsule, Take 1 capsule (37.5 mg total) by mouth daily., Disp: 30 capsule, Rfl: 3 Allergies Allergen Reactions Amlodipine Besylate Swelling Tetracycline Swelling Glutathione (Bulk) Unknown Throat swelling Prozac [Fluoxetine] Unknown Sulfa (Sulfonamide Antibiotics) Diarrhea HPI Pt presented to ED on 10/23/23 with elev potassium on recent labs, 5.6 as well as an odor to his urine. He had 3+ LE on UA and sl elev cr of 1.5. WBC was normal. His potassium was normal in the ED. Hewas given a script for keflex and told to f/u with us. Culture showed Citrobacter Koseri sensitive to cephalosporins. He completed the keflex and is doing well. No further odor. No dysuria. Sees a urologist for BPH; he self caths actually. No gross hematuria, fever, chills. PHQ Screening Over the last 2 weeks, how often have you been bothered by any of the following problems? Little Interest or Pleasure in Doing Things: Not at all Feeling Down, Depressed, or Hopeless: Not at all PHQ-2 Total Score (If total score is 3 or more points, staff should administer the PHQ-9): 0 Over the past 2 weeks, how often have you been bothered by any of the following problems? Little Interest or Pleasure in Doing Things: Not at all Feeling Down, Depressed, or Hopeless: Not at all PHQ-2 Total Score (If total score is 3 or more points, staff should administer the PHQ-9): 0 Review of Systems Constitutional: Negative for chills and fever. Gastrointestinal: Negative for abdominal pain. Genitourinary: Positive for difficulty urinating (h/o BPH, self caths). Negative for dysuria, flankpain and hematuria. Abnormal urine odor: see HPI Vitals BP 122/70 (BP Location: Right arm, Patient Position: Sitting) Pulse 54 Temp 36.7 ??C (98.1 ??F) (Temporal) Resp 18 Ht 185.4 cm (6' 1 ) Wt 89.2 kg (196 lb 9.6 oz) SpO2 99% BMI 25.94 kg/m?? Lab Results Component Value Date WBC 3.9 10/23/2023 HGB 11.7 (L) 10/23/2023 HCT 35.5 (L) 10/23/2023 MCV 89.9 10/23/2023 LABPLAT 169 10/23/2023 Chemistry Lab Results Component Value Date SODIUM 143 10/23/2023 POTASSIUM 4.6 10/23/2023 CHLORIDE 108 10/23/2023 CO2 24 10/23/2023 ANIONGAP 11 10/23/2023 BUNSER 14 10/23/2023 CREATININE 1.50 (H) 10/23/2023 GLUCOSE 76 10/23/2023 URICACID 4.7 11/03/2023 CALCIUM 9.3 10/23/2023 BILITOT 0.2 10/23/2023 PROTEIN 6.2 08/06/2020 ALBUMIN 4.0 10/23/2023 GFRNAA 53 (L) 10/23/2023 ALKPHOS 124 10/23/2023 AST 17 10/23/2023 ALT 15 10/23/2023 PHOS 4.1 02/07/2022 MAGNESIUM 1.7 02/07/2022 Physical Exam Constitutional: General: He is not in acute distress. Appearance: Normal appearance. Cardiovascular: Rate and Rhythm: Normal rate. Pulmonary: Effort: Pulmonary effort is normal. Abdominal: Palpations: Abdomen is soft. Tenderness: There is no abdominal tenderness. There is no right CVA tenderness or left CVA tenderness. Neurological: Mental Status: He is alert and oriented to person, place, and time. Psychiatric: Mood and Affect: Mood normal. Behavior: Behavior normal. Diagnoses and all orders for this visit: Acute cystitis without hematuria (Primary) Comments: recheck UA , continue f/u with urology as it's been over a year since his last appt. last PSA mar 2023. Orders: - Urinalysis reflex to microscopic and culture Urine, clean voided; Future Return if symptoms worsen or fail to improve. Pao Dejesus PA-C documented in this encounter Plan of Treatment Not on file documented as of this encounter Procedures Procedure Name Priority Date/Time Associated Diagnosis Comments REFLEXIVE URINE CULTURE Routine 11/11/2023 12:10 PM CDT URINALYSIS AND REFLEX TO MICROSCOPIC AND CULTURE Routine 11/11/2023 12:10 PM CDT Acute cystitis without hematuria documented in this encounter Results * REFLEXIVE URINE CULTURE (11/11/2023 12:10 PM CDT) [facility]:NO CULTURE INDICATED 11/11/2023 12:1 0 PM CDT 11/11/2023 12:13 PM CDT Narrative [facility] - 11/11/2023 11:29 PM CDT FASTING:NO FASTING: NO us Pao Zhou LAB MICROBIOLOGY - CHELI AL ORDERABLES Final Result [facility] [address] [place] [address] * Urinalysis reflex to microscopic and culture Urine, clean voided (11/11/2023 12:10 PM CDT) Color, ur YELLOW YELLOW [facility] Appearance, ur CLEAR CLEAR [facility] Specific gravity 1.012 1.001 - 1.035 [facility] pH, ur 7.0 5.0 - 8.0 [facility] Glucose, ur NEGATIVE NEGATIVE [facility] Bilirubin, ur NEGATIVE NEGATIVE [facility] Ketones, ur NEGATIVE NEGATIVE [facility] Blood, ur NEGATIVE NEGATIVE [facility] Protein, ur, quant NEGATIVE NEGATIVE [facility] Nitrites, ur NEGATIVE NEGATIVE [facility] Leukocyte esterase, ur NEGATIVE NEGATIVE [facility] WBC, ur NONE SEEN < OR = 5 /HPF [facility] RBC, ur NONE SEEN < OR = 2 /HPF [facility] Epithelial cells, squamous, ur NONE SEEN < OR = 5 /HPF [facility] Bacteria, ur, quant NONE SEEN NONE SEEN /HPF [facility] Hyaline cast NONE SEEN NONE SEEN /LPF [facility] Note [facility] Comment: This urine was analyzed for the presence of WBC, RBC, bacteria, casts, and other formed elements. Only those elements seen were reported. Urine, clean voided 11/11/2023 12:10 PM CDT 11/11/2023 12:13 PM CDT Narrative [facility] - 11/11/2023 11:29 PM CDT FASTING:NO FASTING: NO us Pao Zhou LAB MICROBIOLOGY - GENER AL ORDERABLES Final Result [facility] [address] [place] [address] documented in this encounter Visit Diagnoses Diagnosis Acute cystitis without hematuria- Primary documented in this encounter Discontinued Medications Medication Sig Discontinue Reason Start Date End Da te pancrelipase (Zenpep) 3,000 units of lipase capsule,delayed release(DR/EC) 3 (three) times a day Therapy completed 11/10/2023 bisacodyL 5 mg tablet 2 tabs daily Other 09/24/2022 11/10/2023 docusate sodium (COLACE) 100 mg capsuleIndications:const ipation Take 1 capsule (100 mg total) by mouth 2 (two) times a day Other 09/24/2022 11/10/2023 lactulose solution 10 gram/15mL 30 cc daily , prn Other 09/24/2022 11/10/2023 documented as of this encounter Care Teams Inspector Timers Relationship Specialty Start Date End Date Juan M Doll MD [address] [facility] [address] [address] PCP - General Family Medicine 09/24/22 Khang Osullivan MD [address] [facility] [address] [address] Consulting Physician Gastroenterology 11/25/22 documented as of this encounter
--- OUTSIDE RECORDS SUMMARY | 2024-03-04 10:33 | XMS_ITS | Encounter Summary ---
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 Gender Identity Not on file Sexual Orientation Not on file documented as of this encounter Ordered Prescriptions Prescription Sig Dispense Quantity Refills Last Filled Start Date End Date carvediloL (COREG) 12.5 mg tabletIndications: CKD stage 3a, GFR 45-59 ml/min ([facility]) Take 1 tablet (12.5 mg total) by mouth 2 (two) times a day with meals 180 tablet 3 11/17/2023 11/16/2024 carvediloL (COREG) 12.5 mg tablet Take 1 tablet (12.5 mg total) by mouth 2 (two) times a day with meals 180 tablet 3 11/17/2023 11/17/2023 documented in this encounter Miscellaneous Notes * Telephone Encounter - Jarrell Culver MA - 11/17/2023 9:40 AM CDT Rx sent to [facility] pharmacy * Telephone Encounter - Feliberto Munoz MD - 11/17/2023 9:01 AM CDT Fine to re-send please * Telephone Encounter - Jarrell Culver MA - 11/17/2023 7:52 AM CDT Patient called stating he is out if Carvedilol 12.5 mg, I informed patient mediation was sent to [facility]. Patient wanted to know if medication can be sent to [facility] in [facility] [phone]. documented in this encounter Plan of Treatment Not on file documented as of this encounter Visit Diagnoses Diagnosis CKD stage 3a, GFR 45-59 ml/min ([facility])- Primary documented in this encounter Discontinued Medications Medication Sig Discontinue Reason Start Date End Da te carvediloL (COREG) 12.5 mg tablet Take 1 tablet (12.5 mg total) by mouth 2 (two) times a day with meals Reorder 11/16/2023 11/17/2023 carvediloL (COREG) 12.5 mg tablet Take 1 tablet (12.5 mg total) by mouth 2 (two) times a day with meals 11/17/2023 11/17/2023 documented as of this encounter Care Teams Rehab Aid Relationship Specialty Start Date End Date Juan M Doll MD [address] [facility] [address] [place] [address] PCP - General Family Medicine 09/24/22 Khang Osullivan MD [address] [facility] [address], [place] [address] Consulting Physician Gastroenterology 11/25/22 documented as of this encounter
--- OUTSIDE RECORDS SUMMARY | 2024-03-04 10:33 | XMS_ITS | Data Portability ---
Author Organization [facility], [facility]) Address [address] [place] [address] Care Team Providers Care Lining Baster Name Role Phone CHRISTIAN DAN Primary Care Provider CARLINE CÁRDENAS Urologist Assessment Encounter Date Assessment Date Assessment LastModified by Organization Details LastModified Time 04/17/2022 04/17/2022 56 year old male with history of benign prostatic hyperplasia . His lower urinary tract symptoms include, nocturia and urinary retention requiring dominguez catheter. He has previously required a dominguez catheter due to urinary retention and elevated creatinine. He did not have any symptoms of urinary retention when the dominguez was placed. His dominguez catheter was removed on 03/24/2022. His IPPS score is 5 and he declined to fill out a SANG score. He reports not having any symptoms of erectile dysfunction He has tried oral medications which have provided symptom relief. His most recent PSA was 0.96 which was completed on 11/2021. He is considering a prostate artery embolization to treat his bothersome symptoms. We discussed the risks and benefits of a PAE in addition to the alternatives, including but not limited to TURP, REZUM and GreenLight (he wants to pursue an alternative to these due to the risk of possible adverse effects including retrograde ejaculation, etc). I believe given his symptoms he may be a candidate for a prostate artery embolization. He does not need an updated PSA. I reviewed his previous records of a CT of the abdomen/pelvis (02/04/2022) revealing an enlarged prostate measuring 4.5 x 3.3 x 3.8. His urologist (Dr. Cárdenas) performed a cystourethroscopy which indicated a enlarged prostate with median lobe. He has a follow up appointment with urology regarding post-removal of his dominguez catheter with a renal US and PVR to be measured for Wednesday. I discussed with him I would be ordering the same ultrasound (post void residual) and he can have the results sent to us for review. He will follow up after his ultrasound has been performed and urinalysis has been completed. I spent a total of 45 minutes with the patient. The time was spent reviewing the chart ,discussing with patient and/or family and forming a treatment plan. [email or web address] Not available 04/17/2022 12:36:39 Plan of Treatment Reminders Order Date Submit Date Provider Last Modified By Organization Details Last Modified Time Details Appointments None recorded. Lab urinalysis , complete 2022 023 EDISON Not available 06:58:14 Referral None recorded. Procedures None recorded. Surgeries None recorded. Imaging None recorded. Medication Orders None recorded. Patient TargetsNo targets recorded. Patient InstructionsNo instructions recorded. Reason for Referral None Reported. Results Created Date Observation Date Name Description Value Unit Range Abnormal Flag Note LastModifiedBy Organization Detail LastModifiedTime 04/18/1904/19/2022 URINA LYSIS , COMPL ETE color YELLOW yellow normal Not Available [facility] [address], [address], 04/19/2022 06:58:14 04/18/19 23 04/19/2022 URINA LYSIS , COMPL ETE appearance CLEAR clear normal Not Available [facility] [address], [address], 04/19/2022 06:58:14 04/18/19 23 04/19/2022 URINA LYSIS , COMPL ETE specific gravity 1.005 1.001- 1.035 normal Not Available [address], [address], 04/19/2022 06:58:14 04/18/19 23 04/19/2022 URINA LYSIS , COMPL ETE pH 6.5 5.0-8. 0 normal Not Available [address] [place], [address], 04/19/2022 06:58:14 04/18/19 23 04/19/2022 URINA LYSIS , COMPL ETE glucose NEGATI VE negati ve normal Not Available [facility] [address] [address] [place], [address], 04/19/2022 06:58:14 04/18/19 23 04/19/2022 URINA LYSIS , COMPL ETE bilirubin NEGATI VE negati ve normal Not Available [facility] [address] [place], [address], 04/19/2022 06:58:14 04/18/19 23 04/19/2022 URINA LYSIS , COMPL ETE ketones NEGATI VE negati ve normal Not Available [facility] [address], [address], 04/19/2022 06:58:14 04/18/19 23 04/19/2022 URINA LYSIS , COMPL ETE occult blood NEGATI VE negati ve normal Not Available [facility] [address], [address], 04/19/2022 06:58:14 04/18/19 23 04/19/2022 URINA LYSIS , COMPL ETE protein NEGATI VE negati ve normal Not Available [facility] [address], [address], 04/19/2022 06:58:14 04/18/19 23 04/19/2022 URINA LYSIS , COMPL ETE nitrite NEGATI VE negati ve normal Not Available [facility] [address], [address], 04/19/2022 06:58:14 04/18/19 23 04/19/2022 URINA LYSIS , COMPL ETE leukocyte esterase 1+ negati ve abnormal Not Available [address], [address], 04/19/2022 06:58:14 04/18/19 23 04/19/2022 URINA LYSIS , COMPL ETE WBC 6-10 /hpf < or = 5 abnormal Not Available [address], [address], 04/19/2022 06:58:14 04/18/19 23 04/19/2022 URINA LYSIS , COMPL ETE RBC NONE SEEN /hpf < or = 2 normal Not Available [address], [address], 04/19/2022 06:58:14 04/18/19 23 04/19/2022 URINA LYSIS , COMPL ETE squamous epithelial cells NONE SEEN /hpf < or = 5 normal Not Available [address], [address], 04/19/2022 06:58:14 04/18/19 23 04/19/2022 URINA LYSIS , COMPL ETE bacteria NONE SEEN /hpf none seen normal Not Available [address], [address], 04/19/2022 06:58:14 04/18/1904/19/2022 URINA LYSIS , COMPL ETE hyaline cast NONE SEEN /lpf none seen normal Not Available [address], [address], 04/19/2022 06:58:14 Result Notes None recorded. Procedures Surgical History Date Name Laterality Status Provider Name and Address Organization Details Recorded Time 03/15/2006 Other completed marvin Day [facility] and 04/17/2022 11:09:10 03/15/2002 Other completed amrvin Day [facility]elb [facility] and 04/17/2022 11:09:10 Imaging Results None recorded. Procedure Notes None recorded. Medical Equipment None Reported. Allergies Allergen ID Allergen Name Allergen Category Reaction Reaction Severity Criticality Documentation Date Start Date Code Code System Note Provider Name and Address Organization Details Recorded Time 7183 tetracycl ine medicatio n Not available Not available Not available 04/17/2022 95634 RxNorm [facility] 10:54:10 7184 Prozac medicatio n Not available Not available Not available 04/17/2022 89230 RxNorm [facility] 10:55:07 7185 Substance with sulfonami de structure and antibacte rial mechanism of action (substanc e) medicatio n Not available Not available Not available 04/17/2022 18826 8003 SNOMED [facility] 10:55:17 Medications Name Sig Start Date Stop Date Status Note LastModified by Organization Details LastModified Time tamsulosin 0.4 mg capsule Take 1 capsule every day by oral route. active Not Available Not Available No t Available paroxetine 30 mg tablet Take 1 tablet every day by oral route. active Not Available Not Available No t Available venlafaxine 37.5 mg tablet Take 1 tablet twice a day by oral route. active Not Available Not Available No t Available calcium polycarbophi l 625 mg tablet Take by oral route. active Not Available Not Available Not Available albuterol sulfate HFA 90 mcg/actuatio n aerosol inhaler Inhale 2 puffs every 4 hours by inhalation route. active Not Available Not Available No t Available cholecalcife rol (vitamin D3) active Not Available Not Available Not Available Curcumin active Not Available Not Avai lable Not Available Probiotic 20 billion cell capsule Take by oral route. active Not Available Not Available Not Available Wixela Inhub 250 mcg-50 mcg/dose powder for inhalation Inhale 1 puff twice a day by inhalation route. active Not Available Not Available No t Available Vitals Date Recorded Body height Body mass index (BMI) Body weight Heart rate Systolic blood pressure Diastolic blood pressure Provider Name and Address Organization Details Last Updated DateTime 3 185.42 cm 25.1 kg/m2 45927.5 5 g 66 /min 143 mm[Hg] 95 mm[Hg] [facility] 11:13:40 Social History Question Answer Notes LastModified by Organizat ion Details LastModified Time Tobacco Smoking Status Never Smoker marvin celis null, [place] - [facility] 04/17/2022 11:09:03 What Is Your Level Of Alcohol Consumption? None Information not available 04/17/2022 Which Illicit Or Recreational Drugs Have You Used? None [email or web address] Information not available 04/17/2022 What Is The Highest Grade Or Level Of School You Have Completed Or The Highest Degree You Have Received? [id number] [email or web address] Information not available 04/17/2022 What Is Your Occupation? [employer] [email or web address] Information not available 04/17/2022 What Was The Date Of Your Most Recent Tobacco Screening? 04/17/2022 [email or web address] Information not available 04/17/2022 How Much Tobacco Do You Smoke? No [email or web address] Information not available 04/17/2022 Sex: Unknown Functional Status None recorded. Mental Status None recorded. Family History Relationship Description Onset Age of this Age Resolved Age Notes LastModified by Organization Details LastModified Time Mother Hypertensive disorder pt. added direct ly (04/17) [email or web address] Not available 04/17/2022 10:50:42 Mother Malignant neoplastic disease pt. added direct ly (04/17) [email or web address] Not available 04/17/2022 10:50:42 Father Malignant neoplastic disease pt. added direct ly (04/17) [email or web address] Not available 04/17/2022 10:50:56 Sister Diabetes mellitus pt. added direct ly (04/17) [email or web address] Not available 04/17/2022 10:51:10 Sister Hypertensive disorder pt. added direct ly (04/17) [email or web address] Not available 04/17/2022 10:51:10 Sister Malignant neoplastic disease pt. added direct ly (04/17) [email or web address] Not available 04/17/2022 10:51:10 Maternal Grandmother Coronary arterioscler osis pt. added direct ly (04/17) [email or web address] Not available 04/17/2022 10:51:48 Maternal Aunt Hypertensive disorder pt. added direct ly (04/17) [email or web address] Not available 04/17/2022 10:52:16 Maternal Aunt Hypercholest erolemia pt. added direct ly (04/17) [email or web address] Not available 04/17/2022 10:52:16 Maternal Uncle Malignant neoplastic disease pt. added direct ly (04/17) [email or web address] Not available 04/17/2022 10:52:44 Paternal Aunt Malignant neoplastic disease pt. added direct ly (04/17) [email or web address] Not available 04/17/2022 10:53:09 Paternal Uncle Malignant neoplastic disease pt. added direct ly (04/17) [email or web address] Not available 04/17/2022 10:53:28 Medical History Condition Response Anxiety Disorder Y Cancer Y Asthma Y Kidney Disease Y Past Encounters Encounter ID Performer Location Encounter Start Date Encounter Closed Date Diagnosis/Indication Diagnosis SNOMED-CT Code Diagnosis ICD10 Code [id number] JOSH DAILY, [employer] [place] [address] [place] [address],[address] [address] 04/17/2022 10:32:32 04/17/2022 12:50:33 Lower urinary tract symptoms due to benign prostatic hypertrophy 2624323873 9101 N40.1 Health Concerns Section Related Observation LastModified by Organization Detai ls LastModified Time None Recorded Concern Status LastModified by Organization Details LastModified Time None Recorded Advance Directives Directive None Recorded Payers Encounter Date Sequence Insurance Name Policy Number Policy Ngo Covered Member ID Ngo Member ID Guarantor Name 04/17/2022 1 [place] [id number] Jean-Pierre Sofia [id number] Jean-Pierre Sofia Notes Date Note Type Note Provider Name and Address Organization Details Recorded Time 04/17/2022 text/html OA prostate historyReported bypatient.Quality:symp toms worse in the evening Severity:moderate Onset/Timin years Associated Symptoms:nocturia reported prior testsprior prostate antigen blood test (0.9 Nov 25, 2021) urinaryIPSS score 5; SANG score without meds 30 genitourinary symptomsprostate enlargement EDISON Context:has used alpha blockers; He is currently taking tamsulosin which has improved his symptoms. 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
--- OUTSIDE RECORDS SUMMARY | 2024-03-04 10:33 | XMS_ITS | Clinical Summary ---
Author Organization [facility] Address [address] [place] [address] Care Team Providers Care Campus Aide Name Role Phone Juan M Doll MD Primary Care Provider [phone] Khang Osullivan MD Unavailable Allergies Active Allergy Reactions Criticality Noted Date Comments Amlodipine Besylate Swelling Medium 09/11/2022 Glutathione (Bulk) Unknown 11/29/2017 Throat swelling Fluoxetine Unknown 11/29/2017 Sulfa (Sulfonamide Antibiotics) Diarrhea Low 01/14 Tetracycline Swelling Medium 05/28/2021 Medications PARoxetine (PAXIL) 30 mg tabletIndications :Depression, unspecified depression type Take 1 tablet (30 mg total) by mouth every morning. 30 tablet 3 8 Active cholecalciferol (VITAMIN D-3) 25 mcg (1,000 unit) tablet Take 4 tablets (4,000 Units total) by mouth daily Active polycarbophil (FIBERCON) 625 mg tablet Take 1 tablet (625 mg total) by mouth daily Active albuterol HFA (ProAir HFA) 90 mcg/actuation inhalerIndication s:Moderate persistent asthma without complication Inhale 2 puffs every 4 (four) hours as needed for wheezing or shortness of breath 3 each 3 2 Active polyethylene glycol (MIRALAX) 17 gram packetIndications :constipation Take 1 packet (17 g total) by mouth daily 30 packet 2 Active lactobacillus comb no.10 (Probiotic) 20 billion cell capsule Active folic acid (FOLVITE) 1 mg tablet Take 1 tablet (1 mg total) by mouth daily Active chlorthalidone (HYGROTON) 50 mg tablet Take 1 tablet (50 mg total) by mouth daily 90 tablet 3 4 Active fluticasone propion-salmetero L (Wixela Inhub) 250-50 mcg/dose diskus inhaler INHALE 1 PUFF BY MOUTH TWICE DAILY. RINSE MOUTH WITH WATER AFTER USE. DO NOT SWALLOW 60 each 5 4 Active doxazosin (CARDURA) 2 mg tablet Take 1 tablet (2 mg total) by mouth every morning 90 tablet 3 4 10/04/19 25 Active doxazosin (CARDURA) 8 mg tablet Take 1 tablet (8 mg total) by mouth nightly 90 tablet 3 4 10/04/19 25 Active carvediloL (COREG) 12.5 mg tabletIndications :CKD stage 3a, GFR 45-59 ml/min ([facility]) Take 1 tablet (12.5 mg total) by mouth 2 (two) times a day with meals 180 tablet 3 4 11/17/19 25 Active venlafaxine XR (EFFEXOR-XR) 37.5 mg 24 hr capsuleIndication s:Depression, unspecified depression type Take 1 capsule (37.5 mg total) by mouth daily 30 capsule 3 4 01/10/20 25 Active latanoprost (XALATAN) 0.005 % ophthalmic solution INSTILL 1 DROP IN EACH EYE AT BEDTIME 4 Active Active Problems Problem Noted Date Diagnosed Date Effusion of left knee 11/03/2023 Hyperkalemia 02/04/2022 Arthralgia 04/30/2021 Assessment & Plan (04/30/2021 4:20 PM RETAIL OPERATIONS SPECIALIST): Has migratory arthralgias Will get xrays of wrist joints today Discussed conservative measures and trial with low dose steroids, biofreeze, rest and brace. Denies any concerns for STD and defers STD testing Will run rheum panel but still feel he needs rheum consult, given years of inflammation and lack of a diagnosis (scleroderma, myositis, dermatomyositis, etc) or follow up Xerosis of skin 04/30/2021 Assessment & Plan (04/30/2021 4:11 PM RETAIL OPERATIONS SPECIALIST): Suspect he has ichthyosis or severe eczema Would also like him to be checked out by rheum (r/o scleroderma) Trial with topical steroids and liberalize emollient use Referred to derm Personal history of colonic polyps 08/05/2020 Overview (08/05/2020): Added automatically from request for surgery [id number] Moderate persistent asthma without complication 11/29/2017 Benign colon polyp 11/29/2017 Depression 11/29/2017 Vitamin D deficiency 11/29/2017 CHIO (acute kidney injury) Obstructive uropathy Hyponatremia Encounters Date Type Department Care Team Description 02/09/2024 3:40 PM RETAIL OPERATIONS SPECIALIST Office Visit [facility] Rheumatology [address] [place] [address] [place] [address] Leana Jack MD Cyclic citrullinated peptide (CCP) antibody positive (Primary Dx); Arthralgia, unspecified joint 02/09/2024 3:06 PM RETAIL OPERATIONS SPECIALIST - 02/09/2024 11:59 PM RETAIL OPERATIONS SPECIALIST Hospital Encounter Radiology [facility] ([facility]) [address] [place] [id number] Positive THERESE (antinuclear antibody) Discharge Disposition: Discharge to home or self care 12/16/2023 Telephone [facility] Physicians [facility] Surgery [address] [place] [address] Haleigh Finley RMA 12/15/2023 Orders Only [facility] [address] [place] [address] Dudley Cárdenas MD Hydronephrosis, unspecified hydronephrosis type (Primary Dx); BPH with obstruction/lower urinary tract symptoms 12/15/2023 Telephone [facility]) - [facility] Urology [address] [place] [address] [place] [address] Yamila Mcgraw from Last 3 Months Immunizations Name Administration Dates Next Due COVID-19 mRNA ([employer] 0.3 m L (30 mcg) vaccine (12 years and up) 04/24/2023 DTP 11/10/1968, 6,08/13/1964,06/25,05/14/1964 Flucelvax Influenza Quad 02/19/2017 Influenza, Quadrivalent, Nesha l Culture-based MDCK, Antibiotic Free, Intramuscular 01/27/2019 Influenza, Quadrivalent, Spl it, Intramuscular 02/14/2016 Influenza, Quadrivalent, Spl it, Preservative Free, Intramuscular 11/25/2021,12/22/2019,01/14/2018,01/13 Influenza, Trivalent, IM (MDV) 02/22/2015 Influenza, Unspecified 03/29/2023(Deferr ed: Patient Refused),12/13/2022 MMR 08/26/1979 OPV 10/14/1979, 9,08/18/1965,05/12,08/13/1964,06/25/1964 Pfizer SARS-CoV-2 Monovalent Vaccination (12+ Yrs) PURPLE 06/26/2021 Pneumococcal Polysaccharide PPV23 06/02/2019 Td, adsorbed 08/01/2004,07/31/1994 Tdap 12/27/2014 Surgical History Surgery Date Site/Laterality Comments KNEE SURGERY COLONOSCOPY 09/30/2017 Benign colon polyp FLEXIBLE SIGMOIDOSCOPY 01/12/2019 NAD CHEST WALL BIOPSY 03/15/2002 - 03/14/2003 Medical History Medical History Date Comments Constipation Chronic fatigue Anxiety OCD (obsessive compulsive disorder) Asthma Depression Arthritis 1978 Cancer (CMS/HCC) ([facility]) 2002 Sleep apnea 2002 Thyroid disease 1999 Tuberculosis 1974 Chronic kidney disease Apr 2021 Autoimmune disease (CMS/HCC) ([facility]) 1999 Enlarged prostate Kidney damage Family History Medical History Relation Name Comments Alcohol abuse Father Andrzej Cancer Father Andrzej Mental illness Father Andrzej Alzheimer's disease Mother Vero Arthritis Mother Vero Cancer Mother Vero Hypertension Mother Vero Mental illness Mother Vero Miscarriages / Stillbirths Mother Vero Alcohol abuse Sister Paz Cancer Sister Paz Diabetes Sister Paz Drug abuse Sister Paz Hypertension Sister Paz Mental illness Sister Paz Vision loss Sister Paz Relation Name Status Comments Father Andrzej Mother Vero Sister Paz Social History Tobacco Use Types Packs/Day Years [...] on file Legal Sex Male 3:46 AM RETAIL OPERATIONS SPECIALIST Gender Identity Not on file Sexual Orientation Not on file Obstetrics History Last Filed Vital Signs Vital Sign Reading Time Taken Comments Blood Pressure 149/90 02/09/2024 2:16 PM RETAIL OPERATIONS SPECIALIST Pulse 66 02/09/2024 2:16 PM RETAIL OPERATIONS SPECIALIST Temperature 36.3 ??C (97.3 ??F) 02/09/2024 2:16 PM CS T Respiratory Rate 18 11/10/2023 10:53 AM CDT Oxygen Saturation 99% 11/10/2023 10:53 AM CDT Inhaled Oxygen Concentration - - Weight 88.5 kg (195 lb 3.2 oz) 02/09/2024 2:16 P M RETAIL OPERATIONS SPECIALIST Height 185.4 cm (6' 1 ) 02/09/2024 2:16 PM RETAIL OPERATIONS SPECIALIST Body Mass Index 25.75 02/09/2024 2:16 PM RETAIL OPERATIONS SPECIALIST Plan of Treatment Health Maintenance Due Date Last Done Comments Hepatitis C Screening 1965 Hepatitis B Screening 12/04/1981 Zoster Vaccine (1 of 2) 12/04/2013 Pneumococcal vaccine <65 (2 of 2 - PCV) 06/01/2020 06/02/2019 Covid-19 Vaccine (3 2023-2 5 season) 2023 04/24/2023, 06/26/2021 Influenza Vaccine (#1) 2023 3, 11/25/2021, 12/22/2019, Additional history exists Regular Well Visit/Exam 18-64 03/29/2024, 11/25/2021, 07/25/2020, Additional history exists Depression Screening 11/09/2024 11/10/2023, 09/25/19 23 DTaP/Tdap/Td Vaccine (7 - Td or Tdap) 12/27/2024 12/27/2014, 08/01/2004, 07/31/1994, Additional history exists Prostate Cancer Screening-PSA 04/02/2025, 11/25/2021, 08/06/2020, Additional history exists Colon Cancer Screening-Colonoscopy 02/28/2034 02/29/2024, 08/27/2020, 12/10/2017 Colon Cancer Screening-CT Colonography Discontinued 02/29/2024, 08/27/2020, 01/12/2019, Additional history exists Colon Cancer Screening-DNA Stool Discontinued 02/29/2024, 08/27/2020, 01/12/2019, Additional history exists Colon Cancer Screening-FIT Discontinued 02/28, 08/27/2020, 01/12/2019, Additional history exists Colon Cancer Screening-Sigmoidoscopy Discontinued 02/29/2024, 08/27/2020, 01/12/2019, Additional history exists Procedures Procedure Name Priority Date/Time Associated Diagnosis Comments COLONOSCOPY Routine 02/29/2024 8:40 AM RETAIL OPERATIONS SPECIALIST XR FOOT BILATERAL 3 OR MORE VIEWS OF EACH Schedule Routine, Read Routine (OP Routine) 02/09/2024 3:20 PM RETAIL OPERATIONS SPECIALIST Positive THERESE (antinuclear antibody) XR ANKLE BILATERAL 3 OR MORE VIEWS Schedule Routine, Read Routine (OP Routine) 02/09/2024 3:20 PM RETAIL OPERATIONS SPECIALIST Positive THERESE (antinuclear antibody) PSA SCREEN Routine 04/02/2023 12:21 PM RETAIL OPERATIONS SPECIALIST Prostate cancer screening from Last 3 Months or Most Recently Relevant to Health Maintenance Results * Colonoscopy (02/29/2024 8:40 AM RETAIL OPERATIONS SPECIALIST) Anatomical Region Laterality Modality Other us Historical Provider ENDOSCOPY PROCEDURES Kelli l Result * XR Ankle Bilateral 3 or More Views (02/09/2024 3:20 PM RETAIL OPERATIONS SPECIALIST) Anatomical Region Laterality Modality Lower Extremities, Ankle Compute d Radiography 02/09/2024 3:54 PM RETAIL OPERATIONS SPECIALIST Impressions 02/09/2024 3:54 PM RETAIL OPERATIONS SPECIALIST 1. 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 2. ??No acute osseous abnormality in either foot or ankle with small bilateral heel spurs. Electronically signed by: Andrea Ordaz M.D. Narrative 02/09/2024 3:54 PM RETAIL OPERATIONS SPECIALIST EXAMINATION: XR ANKLE BILATERAL 3 OR MORE [...] More Views of Each (02/09/2024 3:20 PM RETAIL OPERATIONS SPECIALIST) Anatomical Region Laterality Modality Lower Extremities, Foot Computed Radiography 02/09/2024 3:54 PM RETAIL OPERATIONS SPECIALIST Impressions 02/09/2024 3:54 PM RETAIL OPERATIONS SPECIALIST 1. 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 2. ??No acute osseous abnormality in either foot or ankle with small bilateral heel spurs. Electronically signed by: Andrea Ordaz M.D. Narrative 02/09/2024 3:54 PM RETAIL OPERATIONS SPECIALIST EXAMINATION: XR ANKLE BILATERAL 3 OR MORE [...] IMG XR PROCEDURES Final Re sult * PSA screen (04/02/2023 12:21 PM RETAIL OPERATIONS SPECIALIST) PSA 0.83 < OR = 4.00 ng/mL [facility] Comment: The total PSA value from this assay system is standardized against the WHO standard. The test result will be approximately 20% lower when compared to the equimolar-standardized total PSA (Charles [place]). Comparison of serial PSA results should be interpreted with this fact in mind. This test was performed using the Siemens chemiluminescent method. Values obtained from different assay methods cannot be used interchangeably. PSA levels, regardless of value, should not be interpreted as absolute evidence of the presence or absence of disease. Blood 04/02/2023 12:2 1 PM RETAIL OPERATIONS SPECIALIST 04/02/2023 12:23 PM RETAIL OPERATIONS SPECIALIST Narrative [facility] - 04/03/2023 5:37 AM RETAIL OPERATIONS SPECIALIST FASTING:YES FASTING: YES Juan M Doll MD LAB BLOOD ORDERABLES Final Re sult [facility] [address] [place] [address] from Last 3 Months or Most Recently Relevant to Health Maintenance [place] [facility] Advance Directives For more information, please contact: [phone] * Full Code (Latest Code Status on File) Date Activated Date Inactivated Comments 02/04/2022 4:07 PM 02/12/2022 7:38 PM * Full Code Date Activated Date Inactivated Comments 08/27/2020 12:10 PM 08/27/2020 8:04 PM Care Teams Campus Aide Relationship Specialty Start Date End Date Juan M Doll MD [address] [place] [address] [place] [address] PCP - General Family Medicine 09/24/22 Khang Osullivan MD [address] [address] Consulting Physician Gastroenterology 11/25/22
--- OUTSIDE RECORDS SUMMARY | 2024-03-04 10:33 | XMS_ITS | Encounter Summary ---
Author Organization [facility] Healthcare Address [address] [place] [address] Care Team Providers Care Personnel Research Psychologist Name Role Phone Juan M Doll MD Primary Care Provider [phone] Khang Osullivan MD Unavailable Reason for Visit * Reason Comments Chronic Kidney Disease Stage 3b CHIO (acute kidney injury) Encounter Details Date Type Department Care Team (Late st Contact Info) Description 04/21/2023 3:30 PM DIRECTOR OF KIDS Office Visit [facility] Nephrology at [address] [place] [phone] Feliberto Munoz MD [address] [place] [address] Stage 3a chronic kidney disease (HCC) (Primary Dx); Benign hypertensive kidney disease with chronic kidney disease stage I through stage IV, or unspecified(403.10); Obstructive uropathy; Hyperkalemia Social History Tobacco Use Types Packs/Day Years Used Date Smoking Tobacco: Never Smokeless Tobacco: Never Tobacco Cessation:Counseling Given: Not Answered Alcohol Use Standard Drinks/Week Comments Not Currently 0 (1 standard drink = 0.6 oz pur e alcohol) AUDIT-C Answer Date Recorded Q1: How often do you have a drink containing alc ohol? Never 10/06/2022 Average Number of Drinks Not on file 07/25/2 023 Frequency of Binge Drinking Not on file 09/13 PHQ-2 Answer Date Recorded PHQ-2 Total Score (If total score is 3 or more points, staff should administer the PHQ-9) 0 09/24/2022 Personal Safety Answer Date Recorded Getting School Help Needed Not on file 02/22 Sex and Gender Information Value Date Recorded Sex Assigned at Not on file Legal Sex Male 3:46 AM DIRECTOR OF KIDS Gender Identity Not on file Sexual Orientation Not on file documented as of this encounter Last Filed Vital Signs Vital Sign Reading Time Taken Comments Blood Pressure 142/89 04/21/2023 3:31 PM DIRECTOR OF KIDS Pulse 56 04/21/2023 3:31 PM DIRECTOR OF KIDS Temperature 36.3 ??C (97.3 ??F) 04/21/2023 3:31 PM CS T Respiratory Rate - - Oxygen Saturation - - Inhaled Oxygen Concentration - - Weight 84.1 kg (185 lb 6.4 oz) 04/21/2023 3:26 P M DIRECTOR OF KIDS Height 185.4 cm (6' 1 ) 04/21/2023 3:26 PM DIRECTOR OF KIDS Body Mass Index 24.46 04/21/2023 3:26 PM DIRECTOR OF KIDS documented in this encounter Ordered Prescriptions Prescription Sig Dispense Quantity Refills Last Filled Start Date End Date doxazosin (CARDURA) 8 mg tablet Take 1 tablet (8 mg total) by mouth nightly 90 tablet 3 04/21/2023 4 documented in this encounter Progress Notes * Feliberto Munoz MD - 04/21/2023 3:30 PM CST Images from the original note were not included. Subjective/Objective Patient ID: Jean-Pierre Sofia is a 57 y.o. male. Chief Complaint Chronic Kidney Disease (Stage 3b) and CHIO (acute kidney injury) HPI This is a patient who was initially scheduled to see me in the office regarding increasing serum creatinine and hyperkalemia. I had ordered repeat labs and a renal ultrasound prior to his visit but for some reason he was scheduled for a renal artery Doppler. I was contacted by vascular ultrasound tach regarding evidence of hydronephrosis and his potassium had returned at 6.8. Instructed to present to the emergency room where he was noted to have bilateral hydronephrosis and a Roe catheter wasplaced with massive urine output. Serum creatinine was 2.6 at that time and prior to recent labs had been unremarkable. Now doing straight catheterization 4 times a day. Serum creatinine has improved to 1.43 on most recent labs, he has normal albuminuria by spot ratio and last potassium was unremarkable with a history of prior hyperkalemia Review of Systems Constitutional: Negative for appetite change and fatigue. HENT: Negative. Eyes: Negative. Respiratory: Negative for cough, chest tightness and shortness of breath. Cardiovascular: Negative for chest pain, palpitations and leg swelling. Gastrointestinal: Negative for abdominal pain and nausea. Endocrine: Negative for polydipsia and polyuria. Genitourinary: Negative for decreased urine volume, difficulty urinating, dysuria, flank pain, frequency, hematuria and urgency. Musculoskeletal: Negative for joint swelling and myalgias. Skin: Negative for color change and rash. Allergic/Immunologic: Negative. Neurological: Negative for dizziness, weakness and light-headedness. Hematological: Negative. Psychiatric/Behavioral: Negative. Current Outpatient Medications Medication Sig Dispense Refill albuterol HFA (ProAir HFA) 90 mcg/actuation inhaler Inhale 2 puffs every 4 (four) hours as needed for wheezing or shortness of breath 3 each 3 bisacodyL 5 mg tablet 2 tabs daily [...] by mouth as needed) 60 capsule 5 fluticasone propion-salmeteroL (Wixela Inhub) 250-50 mcg/dose [...] capsule,delayed release(DR/EC) 3 (three) times a day polycarbophil (FIBERCON) 625 mg tablet Take 1 tablet (625 mg total) by mouth daily polyethylene glycol (MIRALAX) 17 gram packet Take 1 packet (17 g total) by mouth daily 30 packet 0 doxazosin (CARDURA) 8 mg tablet Take 1 tablet (8 mg total) by mouth nightly 90 tablet 3 PARoxetine (PAXIL) 30 mg tablet Take 1 tablet (30 mg total) by mouth every morning. 30 tablet 3 venlafaxine XR (EFFEXOR-XR) 37.5 mg 24 hr capsule Take 1 capsule (37.5 mg total) by mouth daily. 30capsule 3 No current facility-administered medications for this visit. Allergies Allergen Reactions Amlodipine Besylate Swelling Doxazosin Other (See comments) Inflammation Tetracycline Swelling Glutathione (Bulk) Unknown Throat swelling Prozac [Fluoxetine] Unknown Sulfa (Sulfonamide Antibiotics) Diarrhea Vitals BP 142/89 (BP Location: Left arm, Patient Position: Standing) Pulse 56 Temp 36.3 ??C (97.3 ??F) (Temporal) Ht 185.4 cm (6' 1 ) Wt 84.1 kg (185 lb 6.4 oz) BMI 24.46 kg/m?? Physical Exam Constitutional: Appears well-developed and well-nourished. Head: Normocephalic and atraumatic. Eyes: EOM are normal. Neck: Normal range of motion. Cardiovascular: Normal rate and regular rhythm. Pulmonary/Chest: Effort normal and breath sounds normal. Abdominal: Soft. Bowel sounds are normal. Musculoskeletal: Normal range of motion. No edema. Neurological: Alert and oriented to person, place, and time. Skin: Skin is warm and dry. Psychiatric: Normal mood and affect. Assessment/Plan Diagnoses and all orders for this visit: Stage 3a chronic kidney disease (HCC) (N18.31) (Primary) - Basic metabolic panel; Future - CBC with auto differential; Future Benign hypertensive kidney disease with chronic kidney disease stage I through stage IV, or unspecified(403.10) (I12.9) Obstructive uropathy (N13.9) Hyperkalemia (E87.5) Other orders - doxazosin (CARDURA) 8 mg tablet; Take 1 tablet (8 mg total) by mouth nightly Acute kidney failure and hyperkalemia in the setting of obstructive uropathy. Massive urine output following Roe catheter placement. Serum creatinine has improved over time and down to 1.43 on mostrecent labs. Blood pressure somewhat elevated in the office today and variable readings at home. Heis tolerating his alpha-ella without issue and will increase doxazosin to 8 mg at bedtime. He will continue to monitor the blood pressure notify the office if any issues. Given his history of hyperkalemia and lack of any albuminuria I would not start him on an FARZANEH inhibitor or ARB and likewise with his urinary issues I would not start him on an SG LT 2 inhibitor. Last potassium unremarkable. Hemoglobin improving with improving GFR. CTOR OF KIDS documented in this encounter Plan of Treatment Not on file documented as of this encounter Procedures Procedure Name Priority Date/Time Associated Diagnosis Comments CBC WITH AUTO DIFFERENTIAL Routine 10/21/2023 12:20 PM CDT Stage 3a chronic kidney disease (HCC) BASIC METABOLIC PANEL Routine 10/21/2023 12:20 PM CDT Stage 3a chronic kidney disease (HCC) documented in this encounter Results * (ABNORMAL) CBC with auto differential (10/21/2023 12:20 PM CDT) WBC 3.9 3.8 - 10.8 Thousand/u L [facility] RBC, POC 3.87(L) 4.20 - 5.80 Million/uL [facility] Hgb 11.6(L) 13.2 - 17.1 g/dL [facility] Hct 36.2(L) 38.5 - 50.0 % [facility] MCV 93.5 80.0 - 100.0 fL [facility] MCH 30.0 27.0 - 33.0 pg [facility] MCHC 32.0 32.0 - 36.0 g/dL [facility] Rdw 12.7 11.0 - 15.0 % [facility] Platelets 166 140 - 400 Thousand/u L [facility] MPV 11.3 7.5 - 12.5 fL [facility] Neutrophils, abs 2,071 1,500 - 7,800 cells/uL [facility] Lymphocytes, abs 1,244 850 - 3,900 cells/uL [facility] Monocyte abs 433 200 - 950 cells/uL [facility] Eosinophils, abs 101 15 - 500 cells/uL [facility] Basophils, abs 51 0 - 200 cells/uL [facility] Neutrophils 53.1 % [facility] Lymphocyte pct 31.9 % [facility] Monocytes 11.1 % [facility] Eosinophils 2.6 % [facility] Basophils 1.3 % [facility] Blood 10/21/2023 12:2 0 PM CDT 10/21/2023 12:24 PM CDT us Feliberto Munoz MD LAB BLOOD ORDERABLES Final Re sult [facility] [address] [place] [address] * (ABNORMAL) Basic metabolic panel (10/21/2023 12:20 PM CDT) Glucose 72 65 - 99 mg/dL [facility] Comment: ? Fasting reference interval BUN 21 7 - 25 mg/dL [facility] Creatinine 1.64(H) 0.70 - 1.30 mg/dL [facility] eGFR 48(L) > OR = 60 mL/min/1.7 3m2 [facility] BUN/creat ratio 13 6 - 22 (calc) [facility] Sodium 138 135 - 146 mmol/L [facility] Potassium, pl 5.6(H) 3.5 - 5.3 mmol/L [facility] Chloride 109 98 - 110 mmol/L [facility] CO2 22 20 - 32 mmol/L [facility] Calcium 9.2 8.6 - 10.3 mg/dL [facility] Blood 10/21/2023 12:2 0 PM CDT 10/21/2023 12:24 PM CDT us Feliberto Munoz MD LAB BLOOD ORDERABLES Final Re sult [facility] [address] [place] [address] documented in this encounter Visit Diagnoses Diagnosis Stage 3a chronic kidney disease (HCC)- Primary Benign hypertensive kidney disease with chronic kidney disease stage I through stage IV, or unspecified(403.10) Benign hypertensive kidney disease with chronic kidney disease stage I through stage IV, or unspecified Obstructive uropathy Urinary obstruction, unspecified Hyperkalemia Hyperpotassemia documented in this encounter Discontinued Medications Medication Sig Discontinue Reason Start Date End Da te doxazosin (CARDURA) 2 mg tabletIndications:Stage 3b chronic kidney disease (HCC) Take 2 tablets (4 mg total) by mouth nightly Therapy completed 03/05/2023 04/21/2023 documented as of this encounter Care Teams Personnel Research Psychologist Relationship Specialty Start Date End Date Juan M Doll MD [address] [facility] [address] [address] PCP - General Family Medicine 09/24/22 Khang Osullivan MD [address], [place] [address] Consulting Physician Gastroenterology 11/25/22 documented as of this encounter
--- OUTSIDE RECORDS SUMMARY | 2024-03-04 10:33 | XMS_ITS | Encounter Summary ---
Author Organization [facility] Healthcare Address [address] [place] [address] Care Team Providers Care Digital Photographic Printer Name Role Phone Juan M Doll MD Primary Care Provider [phone] Khang Osullivan MD Unavailable Encounter Details Date Type Department Care Team (Late st Contact Info) Description 10/25/2023 Telephone [facility] Nephrology at [address] [place] [address] Feliberto Munoz MD [address] [place] [address] [address] [place] [address] Social History Tobacco Use Types [...] on file 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 He should have the information already and would repeat a BMP in 1 week please Thank you documented in this encounter Plan of Treatment Scheduled Orders Name Type Priority Associated Diagnoses Orde r Schedule Basic metabolic panel Lab Routine Stage 3b chronic kidney disease (HCC) Hyperkalemia Expected: 11/01/2023, Expires: 10/24/2024 documented as of this encounter Visit Diagnoses Diagnosis Hyperkalemia- Primary Hyperpotassemia Stage 3b chronic kidney disease (HCC) documented in this encounter Care Teams Digital Photographic Printer Relationship Specialty Start Date End Date Juan M Doll MD [address] [place] [address] PCP - General Family Medicine 09/24/22 Khang Osullivan MD [address] [facility] [address] [place] [address] Consulting Physician Gastroenterology 11/25/22 documented as of this encounter
--- OUTSIDE RECORDS SUMMARY | 2024-03-04 10:33 | XMS_ITS | Encounter Summary ---
Author Organization [facility] Address [address] 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 Gender Identity Not on file Sexual Orientation Not on file documented as of this encounter Ordered Prescriptions Prescription Sig Dispense Quantity Refills Last Filled Start Date End Date tamsulosin (FLOMAX) 0.4 mg extended release capsule Take 1 capsule (0.4 mg total) by mouth nightly 90 capsule 3 11/04/2022 4 documented in this encounter Miscellaneous Notes * Telephone Encounter - Feliberto Munoz MD - 11/04/2022 12:42 PM CDT Rx sent documented in this encounter Plan of Treatment Not on file documented as of this encounter Visit Diagnoses Not on filedocumented in this encounter Discontinued Medications Medication Sig Discontinue Reason Start Date End Da te tamsulosin (FLOMAX) 0.4 mg extended release capsule Reorder 09/17/2022 11/04/2022 documented as of this encounter Care Teams Commercial Real Estate Associate Relationship Specialty Start Date End Date Juan M Doll MD [address] [facility] [address] [address] PCP - General Family Medicine 09/24/22 documented as of this encounter
--- OUTSIDE RECORDS SUMMARY | 2024-03-04 10:33 | XMS_ITS | Encounter Summary ---
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 Gender Identity Not on file Sexual Orientation Not on file documented as of this encounter Ordered Prescriptions Prescription Sig Dispense Quantity Refills Last Filled Start Date End Date doxazosin (CARDURA) 8 mg tablet Take 1 tablet (8 mg total) by mouth nightly 90 tablet 3 10/04/2023 5 doxazosin (CARDURA) 2 mg tablet Take 1 tablet (2 mg total) by mouth every morning 90 tablet 3 10/04/2023 5 documented in this encounter Miscellaneous Notes * Telephone Encounter - Jarrell Culver MA - 10/04/2023 3:22 PM CDT Patient needs refill on Doxazosin 2 mg and 8 mg tables sent to [facility] [phone]. documented in this encounter Plan of Treatment Not on file documented as of this encounter Visit Diagnoses Not on filedocumented in this encounter Discontinued Medications Medication Sig Discontinue Reason Start Date End Da te doxazosin (CARDURA) 8 mg tablet Take 1 tablet (8 mg total) by mouth nightly Reorder 04/21/2023 10/04/2023 doxazosin (CARDURA) 2 mg tablet Take 1 tablet (2 mg total) by mouth every morning Reorder 05/31/2023 10/04/2023 documented as of this encounter Care Teams Restorer Lace And Textiles Relationship Specialty Start Date End Date Juan M Doll MD [address] [place] [address] PCP - General Family Medicine 09/24/22 Khang Osullivan MD [address] [facility] [address], [place] [address] Consulting Physician Gastroenterology 11/25/22 documented as of this encounter
--- OUTSIDE RECORDS SUMMARY | 2024-03-04 10:33 | XMS_ITS | Encounter Summary ---
Author Organization [facility] Address [address] [facility] [address] [place] [address] Care Team Providers Care Wastewater Treatment Plant Operator Name Role Phone Juan M Doll MD Primary Care Provider [phone] Encounter Details Date Type Department Care Team (Late st Contact Info) Description 10/15/2022 Telephone [facility] Nephrology at [place] [id number] [facility] [address] [place] [address] Feliberto Munoz MD [address] [place] [address] [address] [place] [address] Social History Tobacco Use Types Packs/Day Years [...] on file 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 documented in this encounter Plan of Treatment Not on file documented as of this encounter Visit Diagnoses Not on filedocumented in this encounter Care Teams Wastewater Treatment Plant Operator Relationship Specialty Start Date End Date Juan M Doll MD [address] [facility] [address] [address] PCP - General Family Medicine 09/24/22 documented as of this encounter
--- OUTSIDE RECORDS SUMMARY | 2024-03-04 10:33 | XMS_ITS | Encounter Summary ---
Author Organization [facility] Address [address] [facility] [address] [place] [address] Care Team Providers Care License Clerk Name Role Phone Juan M Doll MD Primary Care Provider [phone] Khang Osullivan MD Unavailable Encounter Details Date Type Department Care Team (Late st Contact Info) Description 12/07/2022 Orders Only [facility] Family Medicine [address] [facility] [address] [place] [address] Juan M Doll MD [address] [place] [address] Abdominal pain (Primary Dx); H. 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 pylori infection Helicobacter pylori (H. pylori) documented in this encounter Care Teams License Clerk Relationship Specialty Start Date End Date Juan M Doll MD [address] [address] PCP - General Family Medicine 09/24/22 Khang Osullivan MD [address] [address] Consulting Physician Gastroenterology 11/25/22 documented as of this encounter
--- OUTSIDE RECORDS SUMMARY | 2024-03-04 10:33 | XMS_ITS | Encounter Summary ---
Author Organization [facility] Address [address] [facility] [address] [place] [address] Care Team Providers Care Human Resources Hr Representative Name Role Phone Juan M Doll MD Primary Care Provider [phone] Reason for Visit * Reason Comments CHIO (acute kidney injury) Encounter Details Date Type Department Care Team (Late st Contact Info) Description 10/06/2022 4:15 PM CDT Office Visit [facility] Nephrology at [address] [place] [address] Feliberto Munoz MD [address] [place] [address] [address] [place] [address] Stage 3b chronic kidney disease (HCC) (Primary Dx); Benign hypertensive kidney disease with chronic kidney disease stage I through stage IV, or unspecified(403.10); Obstructive uropathy Social History Tobacco Use Types Packs/Day Years [...] on file Legal Sex 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 Gender Identity Not on file Sexual Orientation Not on file documented as of this encounter Last Filed Vital Signs Vital Sign Reading Time Taken Comments Blood Pressure 180/98 10/06/2022 4:18 PM CDT Pulse 61 10/06/2022 4:18 PM CDT Temperature 36.9 ??C (98.4 ??F) 10/06/2022 4:18 PM CD T Respiratory Rate - - Oxygen Saturation - - Inhaled Oxygen Concentration - - Weight 87.1 kg (192 lb) 10/06/2022 4:18 PM CDT Height 185.4 cm (6' 0.99 ) 10/06/2022 4:18 PM CD T Body Mass Index 25.34 10/06/2022 4:18 PM CDT documented in this encounter Ordered Prescriptions Prescription Sig Dispense Quantity Refills Last Filled Start Date End Date carvediloL (COREG) 12.5 mg tablet Take 1 tablet (12.5 mg total) by mouth 2 (two) times a day with meals 180 tablet 3 10/06/2022 11/16/2023 documented in this encounter Progress Notes * Feliberto Munoz MD - 10/06/2022 4:15 PM CDT Images from the original note were not included. Subjective/Objective Patient ID: Jean-Pierre Sofia is a 56 y.o. male. Chief Complaint CHIO (acute kidney injury) HPI This is [...] doing straight catheterization 4 times a day. Last serum creatinine was 1.88 and potassium was 4.9. blood pressure control has been difficult. Readings from home are elevated although not to the degree it is in the office today. He has had intolerance to several medications but tolerating current regimen Review of Systems Constitutional: Negative for appetite [...] needed 2 tabs daily) 60 tablet 5 chlorthalidone 50 mg tablet Take 1 tablet [...] by mouth as needed) 60 capsule 5 empty container (Enema Bottle) bottle Distilled water lactobacillus comb no.10 (Probiotic) 20 billion cell capsule lactulose solution 10 gram/15mL 30 cc daily , prn 473 mL 5 PARoxetine (PAXIL) 30 mg tablet Take 1 tablet (30 mg total) by mouth every morning. 30 tablet 3 polycarbophil (FIBERCON) 625 mg tablet Take 1 tablet (625 mg total) by mouth daily polyethylene glycol (MIRALAX) 17 gram packet Take 1 packet (17 g total) by mouth daily 30 packet 0 tamsulosin (FLOMAX) 0.4 mg extended release capsule turmeric (CURCUMIN MISC) UNABLE TO FIND Take 1 each by mouth daily Med Name: kaleyeric/cucfran venlafaxine XR (EFFEXOR-XR) 37.5 mg 24 hr capsule Take 1 capsule (37.5 mg total) by mouth daily. 30capsule 3 Wixela Inhub 250-50 mcg/dose diskus inhaler INHALE 1 PUFF BY MOUTH DAILY. RINSE MOUTH WITH WATER AFTER USE TO REDUCE AFTERTASTE AND INCIDENCE OF CANDIDIASIS. DO NOT SWALLOW 60 each 2 carvediloL (COREG) 12.5 mg tablet Take 1 tablet (12.5 mg total) by mouth 2 (two) times a day with meals 180 tablet 3 No current facility-administered medications for this visit. Allergies Allergen Reactions Amlodipine Besylate Swelling Doxazosin Other (See comments) Inflammation Tetracycline Swelling Glutathione (Bulk) Unknown Throat swelling Prozac [Fluoxetine] Unknown Sulfa (Sulfonamide Antibiotics) Diarrhea Vitals BP (!) 180/98 (BP Location: Left arm, Patient Position: Sitting) Pulse 61 Temp 36.9 ??C (98.4 ??F) (Temporal) Ht 185.4 cm (6' 0.99 ) Wt 87.1 kg (192 lb) BMI 25.34 kg/m?? Physical Exam Constitutional: Appears well-developed and [...] and all orders for this visit: Stage 3b chronic kidney disease (HCC) (N18.32) (Primary) - CBC with auto differential; Future - Basic metabolic panel; Future - Albumin Creatinine Ratio, Urine; Future - PTH; Future Benign hypertensive kidney disease with chronic kidney disease stage I through stage IV, or unspecified(403.10) (I12.9) Obstructive uropathy (N13.9) Other orders - carvediloL (COREG) 12.5 mg tablet; Take 1 tablet (12.5 mg total) by mouth 2 (two) times a day with meals Acute kidney failure and hyperkalemia in the setting of obstructive uropathy. Massive urine output following Roe catheter placement. Serum creatinine has improved since then and remaining stable. Previously normal albuminuria by spot ratio. Blood pressure elevated in the office today, elevated athome but not to this degree. He did check his blood pressure with his home monitor in the office today and it was similar to our reading. I will increase his carvedilol to 12.5 mg b.I.d. and he is aware to monitor blood pressure and pulse and notify the office of any issues. Will continue his current regimen otherwise for now. Last potassium unremarkable. documented in this encounter Plan of Treatment Not on file documented as of this encounter Procedures Procedure Name Priority Date/Time Associated Diagnosis Comments CBC WITH AUTO DIFFERENTIAL Routine 10/29/2022 12:21 PM CDT Stage 3b chronic kidney disease (HCC) ALBUMIN CREATININE RATIO, URINE Routine 10/29/2022 12:21 PM CDT Stage 3b chronic kidney disease (HCC) PTH Routine 10/29/2022 12:21 PM CDT Stage 3b chronic kidney disease (HCC) BASIC METABOLIC PANEL Routine 10/29/2022 12:21 PM CDT Stage 3b chronic kidney disease (HCC) documented in this encounter Results * PTH (10/29/2022 12:21 PM CDT) Parathyroid hormone, intact 27 16 - 77 pg/mL [facility] Comment: Interpretive Guide ?Intact PTH ? Calcium ? ------- Normal Parathyroid ?Normal ? Normal Hypoparathyroidism ?Low or Low Normal ?Low Hyperparathyroidism ?? Primary ?Normal or High ? High ?? Secondary ?High ? Normal or Low ?? Tertiary ? High ? High Non-Parathyroid ?? Hypercalcemia ?Low or Low Normal ?High Blood 10/29/2022 12:2 1 PM CDT 10/29/2022 12:26 PM CDT Feliberto Munoz MD LAB BLOOD ORDERABLES Final Re sult Performing Organization Address [facility] de Phone Number [facility] [address] [place] [address] * Albumin Creatinine Ratio, Urine (10/29/2022 12:21 PM CDT) Creatinine, ur 30 20 - 320 mg/dL [facility] Microalbumin, ur 0.4 See Note: mg/dL [facility] Comment: Reference Range: Reference Range Not established Microalbumin/creat ratio 13 <30 mcg/mg creat [facility] Comment: The ADA defines abnormalities in albumin excretion as follows: Albuminuria Category ?Result (mcg/mg creatinine) Normal to Mildly increased ?? <30 Moderately increased ? 30-299 Severely increased ? > OR = 300 The ADA recommends that at least two of three specimens collected within a 3-6 month period be abnormal before considering a patient to be within a diagnostic category. Urine 10/29/2022 12:2 1 PM CDT 10/29/2022 12:26 PM CDT Feliberto Munoz MD LAB URINE ORDERABLES Final Re sult Performing Organization Address [facility] de Phone Number [employer] [address] [facility] [place] [address] * (ABNORMAL) Basic metabolic panel (10/29/2022 12:21 PM CDT) [facility] Glucose 67 65 - 99 mg/dL [facility] Comment: ? Fasting reference interval BUN 19 7 - 25 mg/dL [facility] Creatinine 1.49(H) 0.70 - 1.30 mg/dL [facility] eGFR 54(L) > OR = 60 mL/min/1.7 3m2 [facility] BUN/creat ratio 13 6 - 22 (calc) [facility] Sodium 138 135 - 146 mmol/L [facility] Potassium, pl 4.8 3.5 - 5.3 mmol/L [facility] Chloride 108 98 - 110 mmol/L [facility] CO2 25 20 - 32 mmol/L [facility] Calcium 9.0 8.6 - 10.3 mg/dL [facility] [place] Blood 10/29/2022 12:2 1 PM CDT 10/29/2022 12:26 PM CDT us Feliberto Munoz MD LAB BLOOD ORDERABLES Final Re sult [facility] [address] [place] [address] * (ABNORMAL) CBC with auto differential (10/29/2022 12:21 PM CDT) [facility] WBC 4.4 3.8 - 10.8 Thousand/u L [facility] [place] RBC, POC 3.90(L) 4.20 - 5.80 Million/uL [facility] Hgb 11.7(L) 13.2 - 17.1 g/dL [facility] Hct 36.4(L) 38.5 - 50.0 % [facility] MCV 93.3 80.0 - 100.0 fL [facility] [place] MCH 30.0 27.0 - 33.0 pg [facility] [place] MCHC 32.1 32.0 - 36.0 g/dL [facility] [place] Rdw 13.1 11.0 - 15.0 % [facility] Platelets 193 140 - 400 Thousand/u L [facility] MPV 10.7 7.5 - 12.5 fL [facility] Neutrophils, abs 2,596 1,500 - 7,800 cells/uL [facility] Lymphocytes, abs 1,302 850 - 3,900 cells/uL [facility] Monocyte abs 352 200 - 950 cells/uL [facility] Eosinophils, abs 79 15 - 500 cells/uL [facility] Basophils, abs 70 0 - 200 cells/uL [facility] Neutrophils 59 % [facility] Lymphocyte pct 29.6 % [facility] Monocytes 8.0 % [facility] Eosinophils 1.8 % [facility] Basophils 1.6 % [facility] Blood 10/29/2022 12:2 1 PM CDT 10/29/2022 12:26 PM CDT us Feliberto Munoz MD LAB BLOOD ORDERABLES Final Re [facility]ult [facility] [address] [place] [address] documented in this encounter Visit Diagnoses Diagnosis Stage 3b chronic kidney disease (HCC)- Primary Benign hypertensive kidney disease with chronic kidney disease stage I through stage IV, or unspecified(403.10) Benign hypertensive kidney disease with chronic kidney disease stage I through stage IV, or unspecified Obstructive uropathy Urinary obstruction, unspecified documented in this encounter Discontinued Medications Medication Sig Discontinue Reason Start Date End Da te carvediloL (COREG) 6.25 mg tablet Take 1 tablet (6.25 mg total) by mouth 2 (two) times a day with meals Therapy completed 09/29/2022 10/06/2022 documented as of this encounter Care Teams Human Resources Hr Representative Relationship Specialty Start Date End Date Juan M Doll MD [address] [place] [address] PCP - General Family Medicine 09/24/22 documented as of this encounter
--- OUTSIDE RECORDS SUMMARY | 2024-03-04 10:33 | XMS_ITS | Referral Summary ---
Author Organization [facility] Address [facility] [place] [address] Care Team Providers Care Muffler Installer Name Role Phone Juan M Doll MD Primary Care Provider [phone] Khang Osullivan MD Unavailable Encounters Date Type Department Care Team Description 02/09/2024 3:06 PM COATING OPERATOR - 02/09/2024 11:59 PM COATING OPERATOR Hospital Encounter [facility] [address] [place], [place] [id number] Positive THERESE (antinuclear antibody) Discharge Disposition: Discharge to home or self care 02/09/2024 3:40 PM COATING OPERATOR Office Visit [facility] Rheumatology [address] [facility] Advanced Medicine 5th [place] [address] [place] [address] Leana Jack MD 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 11th [place] [address] [place] [address] Yamila Mcgraw from Last 3 Months Allergies Active Allergy Reactions Criticality Noted Date [...] tabletIndications :CKD stage 3a, GFR 45-59 ml/min (HCC) Take 1 tablet (12.5 mg total) by [...] 04/30/2021 Assessment & Plan (04/30/2021 4:20 PM COATING OPERATOR): Has migratory arthralgias Will get xrays of [...] 04/30/2021 Assessment & Plan (04/30/2021 4:11 PM COATING OPERATOR): Suspect he has ichthyosis or severe eczema Would also like him to be checked out by rheum (r/o scleroderma) Trial with topical steroids and liberalize emollient use Referred to derm Personal history of colonic polyps 08/05/2020 Overview (08/05/2020): Added automatically from request for surgery [id number] Moderate persistent asthma without complication 11/29/2017 Benign colon polyp 11/29/2017 Depression 11/29/2017 Vitamin D deficiency 11/29/2017 CHIO (acute kidney injury) Obstructive uropathy Hyponatremia Immunizations Name Administration Dates Next Due COVID-19 mRNA ([employer]) 0.3 m L (30 mcg) vaccine (12 [...] PPV23 06/02/2019 Td, adsorbed 08/01/2004,07/31/1994 Tdap 12/27/2014 Social History Tobacco Use Types Packs/Day Years [...] on file Legal Sex Male 3:46 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 Gender Identity Not on file Sexual Orientation Not on file Last Filed Vital Signs Vital Sign Reading Time Taken Comments Blood Pressure 149/90 02/09/2024 2:16 PM COATING OPERATOR Pulse 66 02/09/2024 2:16 PM COATING OPERATOR Temperature 36.3 ??C (97.3 ??F) 02/09/2024 2:16 PM CS T Respiratory Rate 18 11/10/2023 10:53 AM CDT Oxygen Saturation 99% 11/10/2023 10:53 AM CDT Inhaled Oxygen Concentration - - Weight 88.5 kg (195 lb 3.2 oz) 02/09/2024 2:16 P M COATING OPERATOR Height 185.4 cm (6' 1 ) 02/09/2024 2:16 PM COATING OPERATOR Body Mass Index 25.75 02/09/2024 2:16 PM COATING OPERATOR Plan of Treatment Not on file Procedures Procedure Name Priority Date/Time Associated Diagnosis Comments COLONOSCOPY Routine 02/29/2024 8:40 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 XR FOOT BILATERAL 3 OR MORE VIEWS OF EACH Schedule Routine, Read Routine (OP Routine) 02/09/2024 3:20 PM COATING OPERATOR Positive THERESE (antinuclear antibody) XR ANKLE BILATERAL 3 OR MORE VIEWS Schedule Routine, Read Routine (OP Routine) 02/09/2024 3:20 PM COATING OPERATOR Positive THERESE (antinuclear antibody) PSA SCREEN Routine 04/02/2023 12:21 PM COATING OPERATOR Prostate cancer screening from Last 3 Months or Most Recently Relevant to Health Maintenance Results * Colonoscopy (02/29/2024 8:40 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) Anatomical Region Laterality Modality Other us Historical Provider ENDOSCOPY PROCEDURES Kelli l Result * XR Ankle Bilateral 3 or More Views (02/09/2024 3:20 PM COATING OPERATOR) Anatomical Region Laterality Modality Lower Extremities, Ankle Compute d Radiography 02/09/2024 3:54 PM COATING OPERATOR Impressions 02/09/2024 3:54 PM COATING OPERATOR 1. 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 2. ??No acute osseous abnormality in either foot or ankle with small bilateral heel spurs. Electronically signed by: Andrea Ordaz M.D. Narrative 02/09/2024 3:54 PM COATING OPERATOR EXAMINATION: XR ANKLE BILATERAL 3 OR [...] More Views of Each (02/09/2024 3:20 PM COATING OPERATOR) Anatomical Region Laterality Modality Lower Extremities, Foot Computed Radiography 02/09/2024 3:54 PM COATING OPERATOR Impressions 02/09/2024 3:54 PM COATING OPERATOR 1. 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 2. ??No acute osseous abnormality in either foot or ankle with small bilateral heel spurs. Electronically signed by: Andrea Ordaz M.D. Narrative 02/09/2024 3:54 PM COATING OPERATOR EXAMINATION: XR ANKLE BILATERAL 3 OR [...] sult * PSA screen (04/02/2023 12:21 PM COATING OPERATOR) PSA 0.83 < OR = 4.00 ng/mL [facility] Comment: The total PSA value from this assay system is standardized against the WHO standard. The test result will be approximately 20% lower when compared to the equimolar-standardized total PSA ([place]). Comparison of serial PSA results should be interpreted with this fact in mind. This test was performed using the Siemens chemiluminescent method. Values obtained from different assay methods cannot be used interchangeably. PSA levels, regardless of value, should not be interpreted as absolute evidence of the presence or absence of disease. Blood 04/02/2023 12:2 1 PM COATING OPERATOR 04/02/2023 12:23 PM COATING OPERATOR Narrative [facility] - 04/03/2023 5:37 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 FASTING:YES FASTING: YES Juan M Doll MD LAB BLOOD ORDERABLES Final Re sult [facility] [address] [place] [address] from Last 3 Months or Most Recently Relevant to Health Maintenance [place] [place] For more information, please contact: [phone] * Full Code (Latest Code Status on File) Date Activated Date Inactivated Comments 02/04/2022 4:07 PM 02/12/2022 7:38 PM * Full Code Date Activated Date Inactivated Comments 08/27/2020 12:10 PM 08/27/2020 8:04 PM Care Teams Muffler Installer Relationship Specialty Start Date End Date Juan M Doll MD [address] [place] [address] PCP - General Family Medicine 09/24/22 Khang Osullivan MD [address] [facility] [address], [place] [address] Consulting Physician Gastroenterology 11/25/22
--- OUTSIDE RECORDS SUMMARY | 2024-03-04 10:33 | XMS_ITS | Encounter Summary ---
Author Organization [facility] Address [address] [place] [address] Phone Care Team Providers Care Math Specialist Name Role Phone Juan M Doll MD Primary Care Provider Khang Osullivan MD Unavailable Reason for Visit * Consultation (Routine) - Closed Specialty Diagnoses / Procedures Referred By Margie norton Referred To Contact Rheumatology Diagnoses Arthralgia, unspecified joint Shruti Haley PA Phone: tel: fax: [facility] (All Locations) Referral ID Status Reason Start Date Expiration Date V isits Requested Visits Authorized [id number] Closed Specialty Services Required 04/30/2021 3 3 Encounter Details Date Type Department Care Team (Late st Contact Info) Description 03/24/2023 1:20 PM MAT SEWER Office Visit [facility] Rheumatology [address] [facility] Advanced Medicine 5th [place] [address] [place] [address] Leana Jack MD [address] [facility] [address] [place] [address] Raised antibody titer (Primary Dx); Primary osteoarthritis of both hands; Chronic pain of left knee Social History Tobacco Use Types Packs/Day Years [...] on file Legal Sex Male 3:46 AM MAT SEWER Gender Identity Not on file Sexual Orientation Not on file documented as of this encounter Last Filed Vital Signs Vital Sign Reading Time Taken Comments Blood Pressure 165/94 03/24/2023 1:19 PM MAT SEWER Pulse 53 03/24/2023 1:19 PM MAT SEWER Temperature 36.4 ??C (97.5 ??F) 03/24/2023 1:19 PM CS T Respiratory Rate - - Oxygen Saturation - - Inhaled Oxygen Concentration - - Weight 86.2 kg (190 lb) 03/24/2023 1:19 PM MAT SEWER Height 185.4 cm (6' 1 ) 03/24/2023 1:19 PM MAT SEWER Body Mass Index 25.07 03/24/2023 1:19 PM MAT SEWER documented in this encounter Progress Notes * Leana Jack MD - 03/24/2023 1:20 PM CST [facility] in [employer] Division of Rheumatology Established patient visit SUBJECTIVE: CC: Here follow-up of joint pain History of Present Illness: 57 y.o. male seen by me for the 1st time in May 2021 here for follow-up today. Since his last visit with me in March 2022, he has been doing well. His main complaint today is left knee pain. Thishas been ongoing for few months. He had a prior meniscal tear in this knee and had this surgically repaired in 2006. Since then he has been having pain in this knee on and off, worsening in the last few months. This is not worse with activity. He has some pain in his right knee as well, but to a lesser degree than the left. He has had no other joint pain, swelling or stiffness. He denies any joint pain or swelling or stiffness today. 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 Social History Tobacco Use Smoking status: [...] ALLERGIES: Allergies Allergen Reactions Amlodipine Besylate Swelling Doxazosin Other (See comments) Inflammation Tetracycline Swelling Glutathione (Bulk) Unknown Throat swelling Prozac [Fluoxetine] Unknown Sulfa (Sulfonamide Antibiotics) Diarrhea OBJECTIVE: Physical Examination: Vitals: BP 165/94 (BP Location: Left arm, Patient Position: Sitting) Pulse 53 Temp 36.4 ??C (97.5 ??F) (Oral) Ht 185.4 cm (6' 1 ) Wt 86.2 kg (190 lb) BMI 25.07 kg/m?? General-pleasant, well-appearing in no distress HEENT [...] Labs: Lab Results Component Value Date WBC 3.1 (L) 01/27/2023 HGB 12.4 (L) 01/27/2023 HCT 37.3 (L) 01/27/2023 MCV 91.4 01/27/2023 LABPLAT 169 01/27/2023 Lab Results Component Value Date AST 31 02/04/2022 ALT 41 02/04/2022 CREATININE 1.43 (H) 01/27/2023 Lab Results Component Value Date SEDRATE 29 (H) 04/30/2021 CRP 4.2 04/30/2021 ESR 29, CCP Ab >300 negative THERESE, RF, CRP normal Radiology: Bilateral wrist XR 04/2021: [...] triquetrum may represent a cyst or erosion. ASSESSMENT/PLAN: Joint pain in the context of high titer CCP antibodies. Although he has high titer CCP antibodies, clinically he does not have RA. X-rays of his hands and wrists from May 2021 were consistent with osteoarthritis. He is asymptomatic at the present time except for chronic left knee pain likely fromosteoarthritis. I will get x-rays of bilateral hands and wrists today. We discussed his lab resultsand x-rays in detail today. Given he is asymptomatic at this time, he does not warrant any treatment. If he has new joint symptoms, I will consider starting treatment. He understands and agrees with this plan. Left knee pain. Likely from osteoarthritis. I will get weight-bearing x-rays of both knees today. Iasked him to take acetaminophen as needed for left knee pain. He knows not to take NSAIDs even [id number] ones with his mild CKD He will return in 6 months, and call to be seen sooner in case of new or worsening symptoms. SEWER documented in this encounter Plan of Treatment Not on file documented as of this encounter Results * XR Knee Bilateral Ap Standing (03/24/2023 2:23 PM MAT SEWER) Anatomical Region Laterality Modality Lower Extremities, Knee Bilateral Computed Radiography 03/24/2023 3:11 PM MAT SEWER Impressions 03/24/2023 5:03 PM MAT SEWER 1. Bilateral hand osteoarthritis, severe at the triscaphe joints bilaterally 2. Medial joint space narrowing in both knees, left greater than right 3. Unchanged cysts or erosions left triquetrum and scaphoid bones. Dictated by: Kendrick Pettit MD, PHD The radiology attending physician has personally reviewed this study, and had reviewed and/or edited this written report and agrees with it. Electronically signed by: Kathya Teixeira MD Narrative 03/24/2023 5:03 PM MAT SEWER EXAMINATION: XR HAND BILATERAL 3 OR MORE [...] this limited single view of the knees. Procedure Note Vonda Teixeira MD - 03/24/2023 EXAMINATION: XR HAND BILATERAL 3 OR MORE [...] or erosions left triquetrum and scaphoid bones. Dictated by: Kendrick Pettit MD, PHD The radiology attending physician has personally reviewed this study, and had reviewed and/or edited this written report and agrees with it. Electronically signed by: Kathya Teixeira MD us Leana Jack MD IMG XR PROCEDURES Final Re sult * XR Wrist Bilateral 3 or More Views (03/24/2023 2:23 PM MAT SEWER) Anatomical Region Laterality Modality Upper Extremities, Wrist Compute d Radiography 03/24/2023 3:11 PM MAT SEWER Impressions 03/24/2023 5:03 PM MAT SEWER 1. Bilateral hand osteoarthritis, severe at the triscaphe joints bilaterally 2. Medial joint space narrowing in both knees, left greater than right 3. Unchanged cysts or erosions left triquetrum and scaphoid bones. Dictated by: Kendrick Pettit MD, PHD The radiology attending physician has personally reviewed this study, and had reviewed and/or edited this written report and agrees with it. Electronically signed by: Kathya Teixeira MD Narrative 03/24/2023 5:03 PM MAT SEWER EXAMINATION: XR HAND BILATERAL 3 OR MORE [...] this limited single view of the knees. Procedure Note Vonda Teixeira MD - 03/24/2023 EXAMINATION: XR HAND BILATERAL 3 OR MORE [...] or erosions left triquetrum and scaphoid bones. Dictated by: Kendrick Pettit MD, PHD The radiology attending physician has personally reviewed this study, and had reviewed and/or edited this written report and agrees with it. Electronically signed by: Kathya Teixeira MD us Leana Jack MD IMG XR PROCEDURES Final Re sult * XR Hand Bilateral 3 or More Views of Each (03/24/2023 2:23 PM MAT SEWER) Anatomical Region Laterality Modality Upper Extremities, Hand Computed Radiography 03/24/2023 3:11 PM MAT SEWER Impressions 03/24/2023 5:03 PM MAT SEWER 1. Bilateral hand osteoarthritis, severe at the triscaphe joints bilaterally 2. Medial joint space narrowing in both knees, left greater than right 3. Unchanged cysts or erosions left triquetrum and scaphoid bones. Dictated by: Kendrick Pettit MD, PHD The radiology attending physician has personally reviewed this study, and had reviewed and/or edited this written report and agrees with it. Electronically signed by: Kathya Teixeira MD Narrative 03/24/2023 5:03 PM MAT SEWER EXAMINATION: XR HAND BILATERAL 3 OR MORE [...] this limited single view of the knees. Procedure Note Vonda Teixeira MD - 03/24/2023 EXAMINATION: XR HAND BILATERAL 3 OR MORE [...] or erosions left triquetrum and scaphoid bones. Dictated by: Kendrick Pettit MD, PHD The radiology attending physician has personally reviewed this study, and had reviewed and/or edited this written report and agrees with it. Electronically signed by: Kathya Teixeira MD us Leana Jack MD IMG XR PROCEDURES Final Re sult documented in this encounter Visit Diagnoses Diagnosis Raised antibody titer- Primary Other and unspecified nonspecific immunological findings Primary osteoarthritis of both hands Chronic pain of left knee Raised antibody titer Other and unspecified nonspecific immunological findings Primary osteoarthritis of both hands Chronic pain of left knee documented in this encounter Historical Medications * This list may reflect changes made after this encounter. folic acid (FOLVITE) 1 mg tablet Take 1 tablet (1 mg total) by mouth daily added in this encounter Care Teams Math Specialist Relationship Specialty Start Date End Date Juan M Doll MD [address] [facility] [address] [place] [address] PCP - General Family Medicine 09/24/22 Khang Osullivan MD [address] [facility] [address], [place] [address] Consulting Physician Gastroenterology 11/25/22 documented as of this encounter
--- OUTSIDE RECORDS SUMMARY | 2024-03-04 10:33 | XMS_ITS | Encounter Summary ---
Author Organization [facility] Address [address] [facility] [address] [place] [address] Care Team Providers Care Coil Wrapper Name Role Phone Hero Acevedo MD Primary Care Provider [phone] Encounter Details Date Type Department Care Team (Late st Contact Info) Description 09/17/2022 Telephone [facility] Nephrology at [place] [id number] [facility] [address] [place] [address] Feliberto Munoz MD [facility] [address] [place] [address] Social History Tobacco Use Types Packs/Day Years [...] more drinks on one occasion? 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 * Telephone Encounter - Feliberto Munoz MD - 09/17/2022 1:31 PM CDT Has a long 1/2 life so would still be present but if he feels it was causing symptoms ok to dc and monitor bp and will have to try to find something he can tolerate * Telephone Encounter - Kaykay Andrea MA - 09/17/2022 9:36 AM CDT Patient called c/o inflammation since starting on the Amlodipine. He states its all over but very inflamed in his wrist (Improved since skipping dose yesterday) and prostate. He also had labs drawn yesterday. He states he discontinued the medication as of yesterday. He also mentioned that he also had the same issue with the doxazosin, however it was very subtle. documented in this encounter Plan of Treatment Not on file documented as of this encounter Visit Diagnoses Not on filedocumented in this encounter Discontinued Medications Medication Sig Discontinue Reason Start Date End Da te amLODIPine (NORVASC) 5 mg tablet Take 1 tablet (5 mg total) by mouth daily 09/11/2022 09/17/2022 documented as of this encounter Care Teams Coil Wrapper Relationship Specialty Start Date End Date Hero Acevedo MD [address] [place] [address] [address] [place] [address] PCP - General Cardiovascular Disease 11/23/17 3 documented as of this encounter
--- OUTSIDE RECORDS SUMMARY | 2024-03-04 10:33 | XMS_ITS | Encounter Summary ---
Author Organization [facility] Address [address] [place] [address] Care Team Providers Care Warp Preparer Name Role Phone Juan M Doll MD Primary Care Provider [phone] Khang Osullivan MD Unavailable Encounter Details Date Type Department Care Team (Late st Contact Info) Description 09/07/[address] 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 Gender Identity Not on file Sexual Orientation Not on file documented as of this encounter Ordered Prescriptions Prescription Sig Dispense Quantity Refills Last Filled Start Date End Date chlorthalidone (HYGROTON) 50 mg tablet Take 1 tablet (50 mg total) by mouth daily 90 tablet 3 09/07/2023 documented in this encounter Miscellaneous Notes * Telephone Encounter - Feliberto Munoz MD - 09/07/2023 1:18 PM CDT Rx sent documented in this encounter Plan of Treatment Not on file documented as of this encounter Visit Diagnoses Not on filedocumented in this encounter Discontinued Medications Medication Sig Discontinue Reason Start Date End Da te chlorthalidone (HYGROTON) 50 mg tablet TAKE 1 TABLET(50 MG) BY MOUTH DAILY Reorder 09/06/2023 09/07/2023 documented as of this encounter Care Teams Warp Preparer Relationship Specialty Start Date End Date Juan M Doll MD [address] [place] [address] PCP - General Family Medicine 09/24/22 Khang Osullivan MD [address] [facility] [address], [place] [address] Consulting Physician Gastroenterology 11/25/22 documented as of this encounter
--- OUTSIDE RECORDS SUMMARY | 2024-03-04 10:33 | XMS_ITS | Encounter Summary ---
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 TIENT AUDITOR * Telephone Encounter - Nayla Bales MA - 01/29/2023 12:15 PM INPATIENT AUDITOR ----- Message from Feliberto Munoz MD sent at 01/28/2023 11:02 AM INPATIENT AUDITOR ----- Creatinine remaining stable at 1.43, potassium unremarkable. Folic acid is borderline low. He can take an [id number] folic acid supplement if he would like. TIENT AUDITOR documented in this encounter Plan of Treatment Not on file documented as of this encounter Visit Diagnoses Not on filedocumented in this encounter Care Teams Wire Hanger Relationship Specialty Start Date End Date Juan M Doll MD [address] [facility] [address] [address] PCP - General Family Medicine 09/24/22 Khang Osullivan MD [address] [address] Consulting Physician Gastroenterology 11/25/22 documented as of this encounter
--- OUTSIDE RECORDS SUMMARY | 2024-03-04 10:33 | XMS_ITS | Encounter Summary ---
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 Gender Identity Not on file Sexual Orientation Not on file documented as of this encounter Ordered Prescriptions Prescription Sig Dispense Quantity Refills Last Filled Start Date End Date carvediloL (COREG) 12.5 mg tablet Take 1 tablet (12.5 mg total) by mouth 2 (two) times a day with meals 180 tablet 3 11/16/2023 11/17/2023 documented in this encounter Miscellaneous Notes * Addendum Note - Omer Landeros MA - 11/16/2023 10:00 AM CDTAddended by: OMER LANDEROS on: 11/16/2023 10:00 AM Modules accepted: Orders * Telephone Encounter - Omer Landeros MA - 11/16/2023 9:59 AM CDT Rx sent * Telephone Encounter - Omer Landeros MA - 11/11/2023 2:15 PM CDT Patient calling to request a refill of Carvedilol be sent to [facility] mail order. He would likea 90 DS if possible. documented in this encounter Plan of Treatment Not on file documented as of this encounter Visit Diagnoses Not on filedocumented in this encounter Discontinued Medications Medication Sig Discontinue Reason Start Date End Da te carvediloL (COREG) 12.5 mg tablet Take 1 tablet (12.5 mg total) by mouth 2 (two) times a day with meals Reorder 10/06/2022 11/16/2023 documented as of this encounter Care Teams Radarman Relationship Specialty Start Date End Date Juan M Doll MD [address] [facility] [address] [place] [id number] PCP - General Family Medicine 09/24/22 Khang Osullivan MD [address] [facility] [address] [address] Consulting Physician Gastroenterology 11/25/22 documented as of this encounter
--- OUTSIDE RECORDS SUMMARY | 2024-03-04 10:33 | XMS_ITS | Encounter Summary ---
Author Organization [facility] Medical Group Address [address] [address] Care Team Providers Care Farm Management Teacher Name Role Phone Rupal Doll MD Primary Care Provider [phone] Reason for Visit * Reason Comments Establish Care Encounter Details Date Type Department Care Team (Late st Contact Info) Description 09/24/2022 3:30 PM CDT Office Visit [facility] Medical Group Primary Care at [address] [address] Rupal Doll MD [facility] [address] HTN (hypertension), benign (Primary Dx); Benign prostatic hyperplasia with urinary frequency; Stage 3b chronic kidney disease (HCC); DONNY (generalized anxiety disorder); Abdominal pain Social History Tobacco Use Types Packs/Day Years [...] on file 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 Gender Identity Not on file Sexual Orientation Not on file documented as of this encounter Last Filed Vital Signs Vital Sign Reading Time Taken Comments Blood Pressure 160/96 09/24/2022 3:38 PM CDT Pulse 65 09/24/2022 3:38 PM CDT Temperature - - Respiratory Rate 18 09/24/2022 3:38 PM CDT Oxygen Saturation 97% 09/24/2022 3:38 PM CDT Inhaled Oxygen Concentration - - Weight 88.6 kg (195 lb 6.4 oz) 09/24/2022 3:38 P M CDT Height 185.4 cm (6' 0.99 ) 09/24/2022 3:38 PM CD T Body Mass Index 25.79 09/24/2022 3:38 PM CDT documented in this encounter Ordered Prescriptions Prescription Sig Dispense Quantity Refills Last Filled Start Date End Date bisacodyL 5 mg tablet 2 tabs daily 60 tablet 5 09/24/2022 4 docusate sodium (COLACE) 100 mg capsuleIndications :constipation Take 1 capsule (100 mg total) by mouth 2 (two) times a day 60 capsule 5 09/24/2022 4 lactulose solution 10 gram/15mL 30 cc daily , prn 473 mL 5 09/24/2022 4 documented in this encounter Progress Notes * Rupal Doll MD - 09/24/2022 3:30 PM CDT Images from the original note were not included. Subjective/Objective Patient ID: Jean-Pierre Sofia is a 56 y.o. male. Chief Complaint Establish Care 56-year-old male. He is doing pretty good. Meds reviewed. Has had some GI issues in the past. Has seen GI doctors. Has had EGD and colonoscopy. Has enlarged prostate with some chronic kidney disease.Sees Nephrology. Creatinine is stable. Blood pressure meds have been evaluated. He is checking his blood pressures at home. PSA has been done December 04. Weight stable. Allergies as of 09/24/2022 - Reviewed 09/24/2022 Allergen Reaction Noted Amlodipine besylate Swelling 09/11/2022 Doxazosin Other (See comments) 09/24/2022 Tetracycline Swelling 05/28/2021 Glutathione (bulk) Unknown 11/29/2017 Prozac [fluoxetine] Unknown 11/29/2017 Sulfa (sulfonamide antibiotics) Diarrhea 02/04/2022 Outpatient Encounter Medications as of 09/24/2022 Medication Sig Dispense Refill albuterol HFA (ProAir HFA) 90 mcg/actuation inhaler Inhale 2 puffs every 4 (four) hours as needed for wheezing or shortness of breath 3 each 3 chlorthalidone 50 mg tablet Take 1 tablet (50 mg total) by mouth daily 90 tablet 3 cholecalciferol (VITAMIN D-3) 25 mcg (1,000 unit) tablet Take 4 tablets (4,000 Units total) by mouth daily empty container (Enema Bottle) bottle Distilled water lactobacillus comb no.10 (Probiotic) 20 billion cell capsule PARoxetine (PAXIL) 30 mg tablet Take 1 tablet (30 mg total) by mouth every morning. 30 tablet 3 polycarbophil (FIBERCON) 625 mg tablet Take 1 tablet (625 mg total) by mouth daily tamsulosin (FLOMAX) 0.4 mg extended release capsule turmeric (CURCUMIN MISC) UNABLE TO FIND Take 1 each by mouth daily Med Name: tumeric/cucumin venlafaxine XR (EFFEXOR-XR) 37.5 mg 24 hr capsule Take 1 capsule (37.5 mg total) by mouth daily. 30capsule 3 Wixela Inhub 250-50 mcg/dose diskus inhaler INHALE 1 PUFF BY MOUTH DAILY. RINSE MOUTH WITH WATER AFTER USE TO REDUCE AFTERTASTE AND INCIDENCE OF CANDIDIASIS. DO NOT SWALLOW 60 each 2 [DISCONTINUED] PARoxetine (PAXIL) 20 mg tablet bisacodyL 5 mg tablet 2 tabs daily 60 tablet 5 docusate sodium (COLACE) 100 mg capsule Take 1 capsule (100 mg total) by mouth 2 (two) times a day 60 capsule 5 lactulose solution 10 gram/15mL 30 cc daily , prn 473 mL 5 polyethylene glycol (MIRALAX) 17 gram packet Take 1 packet (17 g total) by mouth daily (Patient nottaking: Reported on 04/30/2022) 30 packet 0 [DISCONTINUED] amLODIPine (NORVASC) 5 mg tablet Take 1 tablet (5 mg total) by mouth daily 30 tabletPRN [DISCONTINUED] doxazosin (CARDURA) 4 mg tablet Take 1 tablet (4 mg total) by mouth nightly 90 tablet 3 [DISCONTINUED] sodium zirconium cyclosilicate (Lokelma) 5 gram packet Take 1 packet (5 g total) by mouth daily (Patient not taking: Reported on 04/30/2022) 30 packet PRN No facility-administered encounter medications on file as of 09/24/2022. Past Medical History: Diagnosis Date Anxiety Arthritis 1977 Asthma Autoimmune disease (CMS/HCC) ([facility]) 1999 Cancer (CMS/HCC) ([facility]) 2002 Chronic fatigue Chronic kidney disease Apr [...] Partners: Female Alcohol Use: Not At Risk (02/04/2022) AUDIT-C Frequency of Alcohol Consumption: Never Average Number of Drinks: Patient does not drink Frequency of Binge Drinking: Never Review of Systems Constitutional: Positive for fatigue. Negative for fever. Respiratory: Negative for cough and shortness of breath. Cardiovascular: Negative for chest pain and leg swelling. Gastrointestinal: Negative for abdominal pain and nausea. Musculoskeletal: Positive for back pain. Negative for neck pain. Neurological: Negative for seizures and headaches. Psychiatric/Behavioral: Negative for confusion. The patient is not nervous/anxious. Vitals: 09/24/22 1538 BP: 160/96 BP Location: Left arm Patient Position: Sitting Pulse: 65 Resp: 18 SpO2: 97% Weight: 88.6 kg (195 lb 6.4 oz) Height: 185.4 cm (6' 0.99 ) Physical Exam Constitutional: Appearance: He is [...] time. Psychiatric: Speech: Speech normal. PHQ Screening Over the past 2 weeks, how often have you been bothered by any of the following problems? Little Interest or Pleasure in Doing Things: Not at all Feeling Down, Depressed, or Hopeless: Not at all PHQ-2 Total Score (If total score is 3 or more points, staff should administer the PHQ-9): 0 Assessment/Plan Assessment and Plan Diagnoses and all orders for this visit: HTN (hypertension), benign (Primary) His labs are up-to-date. Home blood pressure checks are good. On chlorthalidone. Off amlodipine. NoAce or Arb. Creatinine 1.8. Was told to follow blood pressures Benign prostatic hyperplasia with urinary frequency PSA up-to-date. Continue meds Stage 3b chronic kidney disease (HCC) We discussed Farxiga 10 mg daily. He will see Nephrology. Creatinine has been stable. DONNY (generalized anxiety disorder) Continue present management. On Effexor and Paxil seems to work Effexor at low dose. Orders Placed This Encounter H. pylori breath test Standing Status: Future Standing Expiration Date: 09/25/2023 lactulose solution 10 gram/15mL Si cc daily , prn Dispense: 473 mL Refill: 5 docusate sodium (COLACE) 100 mg capsule Sig: Take 1 capsule (100 mg total) by mouth 2 (two) times a day Dispense: 60 capsule Refill: 5 bisacodyL 5 mg tablet Si tabs daily Dispense: 60 tablet Refill: 5 Specific topics reviewed: drugs, ETOH, and tobacco, importance of regular dental care, importance of regular exercise, importance of varied diet, minimize junk food, and seat belts. Rupal Doll MD documented in this encounter Miscellaneous Notes * Addendum Note - Rupal Doll MD - 09/24/2022 3:30 PM CDTAddended by: RUPAL DOLL on: 09/24/2022 04:48 PM Modules accepted: Orders documented in this encounter Plan of Treatment Not on file documented as of this encounter Visit Diagnoses Diagnosis HTN (hypertension), benign- Primary Essential hypertension, benign Benign prostatic hyperplasia with urinary frequency Stage 3b chronic kidney disease (HCC) DONNY (generalized anxiety disorder) Generalized anxiety disorder Abdominal pain Abdominal pain, unspecified site documented in this encounter Discontinued Medications Medication Sig Discontinue Reason Start Date End Da te doxazosin (CARDURA) 4 mg tablet Take 1 tablet (4 mg total) by mouth nightly Therapy completed 08/13/2022 09/24/2022 sodium zirconium cyclosilicate (Lokelma) 5 gram packetIndications:hyperka lemia Take 1 packet (5 g total) by mouth daily Therapy completed 02/19/2022 09/24/2022 PARoxetine (PAXIL) 20 mg tablet Alternate therapy 08/25/2022 09/24/2022 documented as of this encounter Historical Medications * This list may reflect changes made after this encounter. empty container (Enema Bottle) bottle Distilled water 4 PARoxetine (PAXIL) 20 mg tablet 08/25/2022 3 tamsulosin (FLOMAX) 0.4 mg extended release capsule 09/17/2022 3 added in this encounter Care Teams Farm Management Teacher Relationship Specialty Start Date End Date Rupal Doll MD [address] [facility] [address] [place] [address] PCP - General Family Medicine 09/24/22 documented as of this encounter
--- OUTSIDE RECORDS SUMMARY | 2024-03-04 10:33 | XMS_ITS | Encounter Summary ---
Author Organization [facility] Healthcare Address [address] [place] [address] Care Team Providers Care Utilization Supervisor Name Role Phone Juan M Doll MD Primary Care Provider [phone] Khang Osullivan MD Unavailable Reason for Visit * Reason Onset Date Comments Prior Auth 02/10/2023 Encounter Details Date Type Department Care Team (Late st Contact Info) Description 02/10/2023 Telephone [facility] Medical Group Family Medicine [address] [place] [phone] Juan M Doll MD [address] [place] [phone] Prior Auth Social History Tobacco Use Types Packs/Day Years [...] on file 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 Do not swallow. 10.6 each 1 02/11/2023 02/11/2023 documented in this encounter Miscellaneous Notes * Addendum Note - Adeliade Ruth RN - 02/11/2023 9:06 AM CSTAddended by: ADELAIDE RUTH on: 02/11/2023 09:06 AM Modules accepted: Orders L BILLING SPECIALIST * Telephone Encounter - Adelaide Ruth RN - 02/11/2023 9:06 AM CST Per patient, he already picked up the Wixela. DC'd the Qvar and re-added the wixela. L BILLING SPECIALIST * Telephone Encounter - Kendall Whitehead - 02/11/2023 8:56 AM CST Call Back Caller???s Concern: spoke with patient returning call warm transfer to backline Does message need to be routed? No L BILLING SPECIALIST * Telephone Encounter - Adelaide Ruth RN - 02/11/2023 8:53 AM CST LMTCB. Qvar rx'd. L BILLING SPECIALIST * Telephone Encounter - Juan M Doll MD - 02/10/2023 6:22 PM CST Could try QVAR RediHaler 40 mics. Two puffs b.i.d. L BILLING SPECIALIST * Telephone Encounter - Adelaide Ruth RN - 02/10/2023 10:33 AM LEGAL BILLING SPECIALIST Wixela is not covered, unable to do PA requires step-therapy. Alternatives: Arnuity Ellipta, Asmanex HFA, Asmanex Twisthaler, and Qvar Redihaler Which of these do you want? L BILLING SPECIALIST documented in this encounter Plan of Treatment Not on file documented as of this encounter Visit Diagnoses Not on filedocumented in this encounter Discontinued Medications Medication Sig Discontinue Reason Start Date End Da te fluticasone propion-salmeteroL (Wixela Inhub) 250-50 mcg/dose diskus inhaler Inhale 1 puff 2 (two) times a day Rinse mouth with water after use. Do not swallow. 02/09/2023 02/11/2023 beclomethasone dipropionate (Qvar RediHaler) 40 mcg/actuation inhaler Inhale 2 puffs 2 (two) times a day Rinse mouth with water after use. Do not swallow. 02/11/2023 02/11/2023 documented as of this encounter Historical Medications * This list may reflect changes made after this encounter. fluticasone propion-salmetero L (Wixela Inhub) 250-50 mcg/dose diskus inhaler Inhale 1 puff 2 (two) times a day Rinse mouth with water after use. Do not swallow. 02/11/2023 09/17/2023 added in this encounter Care Teams Utilization Supervisor Relationship Specialty Start Date End Date Juan M Doll MD [address] [facility] [address] [place] [address] PCP - General Family Medicine 09/24/22 Khang Osullivan MD [address] [facility] [address], [place] [address] Consulting Physician Gastroenterology 11/25/22 documented as of this encounter
--- OUTSIDE RECORDS SUMMARY | 2024-03-04 10:33 | XMS_ITS | Encounter Summary ---
Author Organization [facility] Healthcare Address [address] [place] [address] Care Team Providers Care P D Driver Name Role Phone Juan M Doll MD Primary Care Provider [phone] Khang Osullivan MD Unavailable Encounter Details Date Type Department Care Team (Latest Contact Info) Description 03/24/2023 1:43 PM EXTRACT PULLER - 03/24/2023 11:59 PM EXTRACT PULLER Hospital Encounter [facility] [address] [place] [address] Leana Jack MD [address] [place], [place] [id number] Raised antibody titer; Primary osteoarthritis of both hands; Chronic pain of left knee Discharge Disposition: Discharge to home or self [...] on file 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 Gender Identity Not on file Sexual Orientation Not on file documented as of this encounter Medications at Time of Discharge albuterol HFA (ProAir HFA) 90 mcg/actuation inhalerIndications :Moderate persistent asthma without complication Inhale 2 puffs every 4 (four) hours as needed for wheezing or shortness of breath 3 each 3 01/01/2022 cholecalciferol (VITAMIN D-3) 25 mcg (1,000 unit) tablet Take 4 tablets (4,000 Units total) by mouth daily folic acid (FOLVITE) 1 mg tablet Take [...] total) by mouth daily 30 packet 02/12/2022 bisacodyL 5 mg tablet 2 tabs daily 60 tablet 5 09/24/2022 4 carvediloL (COREG) 12.5 mg tablet Take 1 tablet (12.5 mg total) by mouth 2 (two) times a day with meals 180 tablet 3 10/06/2022 4 chlorthalidone 50 mg tablet Take 1 tablet (50 mg total) by mouth daily 90 tablet 3 09/07/2022 4 docusate sodium (COLACE) 100 mg capsuleIndications :constipation Take 1 capsule (100 mg total) by mouth 2 (two) times a day 60 capsule 5 09/24/2022 4 doxazosin (CARDURA) 2 mg tabletIndications: Stage 3b chronic kidney disease (HCC) Take 2 tablets (4 mg total) by mouth nightly 60 tablet 2 03/05/2023 02/07/202 4 empty container (Enema Bottle) bottle Distilled water 4 fluticasone propion-salmeteroL (Wixela Inhub) 250-50 mcg/dose diskus inhaler Inhale 1 puff 2 (two) times a day Rinse mouth with water after use. Do not swallow. 02/11/2023 4 lactulose solution 10 gram/15mL 30 cc daily , prn 473 mL 5 09/24/2022 4 tamsulosin (FLOMAX) 0.4 mg extended release capsule Take 1 capsule (0.4 mg total) by mouth nightly 90 capsule 3 11/04/2022 4 turmeric (CURCUMIN MISC) 4 UNABLE TO FIND Take 1 each by mouth daily Med Name: tumeric/cucumin 4 venlafaxine XR (EFFEXOR-XR) 37.5 mg 24 hr capsuleIndications :Depression, unspecified depression type Take 1 capsule (37.5 mg total) by mouth daily. 30 capsule 3 11/29/2017 4 documented as of this encounter Discharge Disposition Disposition Code Departure Means Destination Discharge to home or self care documented in this encounter Plan of Treatment Not on file documented as of this encounter Procedures Procedure Name Priority Date/Time Associated Diagnosis Comments XR WRIST BILATERAL 3 OR MORE VIEWS Schedule Routine, Read Routine (OP Routine) 03/24/2023 2:23 PM EXTRACT PULLER Raised antibody titer Primary osteoarthritis of both hands Chronic pain of left knee XR HAND BILATERAL 3 OR MORE VIEWS OF EACH Schedule Routine, Read Routine (OP Routine) 03/24/2023 2:23 PM EXTRACT PULLER Raised antibody titer Primary osteoarthritis of both hands Chronic pain of left knee XR KNEE BILATERAL AP STANDING Schedule Routine, Read Routine (OP Routine) 03/24/2023 2:23 PM EXTRACT PULLER Raised antibody titer Primary osteoarthritis of both hands Chronic pain of left knee documented in this encounter Results * XR Wrist Bilateral 3 or More Views (03/24/2023 2:23 PM EXTRACT PULLER) Anatomical Region Laterality Modality Upper Extremities, Wrist Compute d Radiography 03/24/2023 3:11 PM EXTRACT PULLER Impressions 03/24/2023 5:03 PM EXTRACT PULLER 1. Bilateral hand osteoarthritis, severe at the [...] Kathya Teixeira MD Narrative 03/24/2023 5:03 PM EXTRACT PULLER EXAMINATION: XR HAND BILATERAL 3 OR MORE [...] it. Electronically signed by: Kathya Teixeira MD Leana Jack MD IMG XR PROCEDURES Final Re sult * XR Hand Bilateral 3 or More Views of Each (03/24/2023 2:23 PM EXTRACT PULLER) Anatomical Region Laterality Modality Upper Extremities, Hand Computed Radiography 03/24/2023 3:11 PM EXTRACT PULLER Impressions 03/24/2023 5:03 PM EXTRACT PULLER 1. Bilateral hand osteoarthritis, severe at the [...] it. Electronically signed by: Kathya Teixeira MD [facility] 03/24/2023 5:03 PM EXTRACT PULLER EXAMINATION: XR HAND BILATERAL 3 OR MORE [...] XR PROCEDURES Final Re sult * XR Knee Bilateral Ap Standing (03/24/2023 2:23 PM EXTRACT PULLER) Anatomical Region Laterality Modality Lower Extremities, Knee Bilateral Computed Radiography 03/24/2023 3:11 PM EXTRACT PULLER Impressions 03/24/2023 5:03 PM EXTRACT PULLER 1. Bilateral hand osteoarthritis, severe at the [...] Kathya Teixeira MD Narrative 03/24/2023 5:03 PM EXTRACT PULLER EXAMINATION: XR HAND BILATERAL 3 OR MORE [...] it. Electronically signed by: Kathya Teixeira MD Leana Jack MD IMG XR PROCEDURES Final Re sult documented in this encounter Visit Diagnoses Diagnosis Raised antibody titer Other and unspecified nonspecific immunological findings Primary osteoarthritis of both hands Chronic pain of left knee documented in this encounter Care Teams P D Driver Relationship Specialty Start Date End Date JuanM Doll MD [address] [facility] [address] [address] PCP - General Family Medicine 09/24/22 Khang Osullivan MD [address] [address] Consulting Physician Gastroenterology 11/25/22 documented as of this encounter
--- OUTSIDE RECORDS SUMMARY | 2024-03-04 10:33 | XMS_ITS | Encounter Summary ---
Author Organization [facility] Address [address] [place] [address] Phone Care Team Providers Care Marketing Services Rep Name Role Phone Juan M Doll MD Primary Care Provider [phone] Khang Osullivan MD Unavailable Reason for Referral * Procedure (Routine) - Authorized Specialty Diagnoses / Procedures Referred By Contissa t Referred To Contact Diagnoses Effusion of left knee Procedures Arthrocentesis Large Joint: L knee Shahbaz Pinon MD [address] [facility] [address] [place] [address] Phone: tel: fax: [facility] (All Locations) Referral ID Status Reason Start Date Expiration Date V isits Requested Visits Authorized [id number] Authorized 11/03/2023 12/02/2024 1 1 Encounter Details Date Type Department Care Team (Late st Contact Info) Description 11/03/2023 3:40 PM CDT Office Visit [facility] Rheumatology [address] 5th [place] [address] [place] [address] Leana Jack MD [address] [facility] [address] [place] [address] Effusion of left knee (Primary Dx); Arthralgia, unspecified joint; Primary osteoarthritis of both hands; Chronic pain of left knee; Raised antibody titer Social History Tobacco Use Types Packs/Day Years [...] on file 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 Gender Identity Not on file Sexual Orientation Not on file documented as of this encounter Last Filed Vital Signs Vital Sign Reading Time Taken Comments Blood Pressure 134/79 11/03/2023 3:40 PM CDT Pulse 56 11/03/2023 3:40 PM CDT Temperature 36.5 ??C (97.7 ??F) 11/03/2023 3:40 PM CD T Respiratory Rate - - Oxygen Saturation - - Inhaled Oxygen Concentration - - Weight 89.8 kg (198 lb) 11/03/2023 3:40 PM CDT Height 185.4 cm (6' 1 ) 11/03/2023 3:40 PM CDT Body Mass Index 26.12 11/03/2023 3:40 PM CDT documented in this encounter Progress Notes * Shahbaz Pinon MD - 11/03/2023 3:40 PM CDT Images from the original note were not included. Division of Rheumatology Rheumatologic diagnosis: +CCP, OA, L knee pain Rheumatological therapies: none LCV: Mar 24 Subjective HPI: Jean-Pierre Sofia is a 57 y.o. male with PMH asthma, sinusitis, CKD, OA here for follow up. Interval History: Since last visit, patient feeling not too good. Denies any recent infections or hospitalizations. Mr. Sofia endorses joint pain, joint swelling, and joint stiffness - L knee last week, resolved. Lankle about 2 months ago, since improved but still present. Not improved with activity. Mr. Sofia denies other symptoms including fever, chills, pleuritic pain, chest pain, dactylitis, morning stiffness, and paresthesias Review of Systems: All other systems negative as part of a 12-point review of systems. History: Notable PMH: Past Medical History: Diagnosis Date Anxiety Arthritis 1977 Asthma Autoimmune disease ([facility]) ([facility]) 1999 Cancer ([facility]) ([facility]) 2002 Chronic fatigue Chronic kidney disease Apr 2021 Constipation Depression Enlarged prostate Kidney damage OCD (obsessive compulsive disorder) Sleep apnea 2002 Thyroid disease 1999 Tuberculosis 1974 Past Surgical History: Procedure Laterality Date COLONOSCOPY 09/30/2017 Benign colon polyp FLEXIBLE SIGMOIDOSCOPY 01/12/2019 NAD KNEE SURGERY Notable FHx: Family History Problem Relation Age of Onset Alcohol abuse Father Cancer Father Mental illness Father Alcohol abuse Sister Cancer Sister Diabetes Sister Drug abuse Sister Hypertension Sister Mental illness Sister Vision loss Sister Alzheimer's disease Mother Arthritis Mother Cancer Mother Hypertension Mother Mental illness Mother Miscarriages / Stillbirths Mother Current Outpatient Medications Medication Instructions albuterol HFA (ProAir HFA) 90 mcg/actuation inhaler 2 puffs, inhalation, Every 4 hours PRN bisacodyL 5 mg tablet 2 tabs daily carvediloL (COREG) 12.5 mg, oral, 2 times daily with meals (bkfst, dinner) chlorthalidone (HYGROTON) 50 mg, oral, Daily cholecalciferol (VITAMIN D-3) 4,000 Units, oral, Daily docusate sodium (COLACE) 100 mg, oral, 2 times daily doxazosin (CARDURA) 2 mg, oral, Every morning doxazosin (CARDURA) 8 mg, oral, Nightly fluticasone propion-salmeteroL (Wixela Inhub) 250-50 mcg/dose diskus inhaler INHALE 1 PUFF BY MOUTHTWICE DAILY. RINSE MOUTH WITH WATER AFTER USE. DO NOT SWALLOW folic acid (FOLVITE) 1 mg, oral, Daily lactobacillus comb no.10 (Probiotic) 20 billion cell capsule No dose, route, or frequency recorded. lactulose solution 10 gram/15mL 30 cc daily , prn pancrelipase (Zenpep) 3,000 units of lipase capsule,delayed release(DR/EC) 3 times daily PARoxetine (PAXIL) 30 mg, oral, Every morning polycarbophil (FIBERCON) 625 mg, oral, Daily polyethylene glycol (MIRALAX) 17 g, oral, Daily venlafaxine XR (EFFEXOR-XR) 37.5 mg, oral, Daily Allergies Allergen Reactions Amlodipine Besylate Swelling Doxazosin Other (See comments) Inflammation Tetracycline Swelling Glutathione (Bulk) Unknown Throat swelling Prozac [Fluoxetine] Unknown Sulfa (Sulfonamide Antibiotics) Diarrhea Objective Physical Exam: Vitals: BP 134/79 (BP Location: Right arm, Patient Position: Sitting) Pulse 56 Temp 36.5 ??C (97.7 ??F) (Oral) Ht 185.4 cm (6' 1 ) Wt 89.8 kg (198 lb) BMI 26.12 kg/m?? Constitutional: NAD. Eyes: EOMI grossly intact. Anicteric, sclera non-injected ENT: NCAT, neck supple, moist oral mucosa, no oral ulcers Lungs: CTAB, Breathing comfortably on RA. Cardiovascular: RRR, normal S1 and S2. GI: Soft, NT/ND Skin: No rashes, lesions, or bruises to exposed skin areas MSK/Extremities: BLE non edematous, warm and well perfused. Mild to moderate L knee effusion without TTP, some L ankle TTP. Otherwise no swelling, tenderness, warmth, or joint deformities in the fingers, hands, wrists, elbows, shoulders, knees, ankles. Neuro: Alert, moving all extremities equally, BUE/BLE strength grossly 5/5 throughout, gait normal Interval Lab/Radiology/Diagnostic Review: Notable labs: Medication monitoring: - estimated creatinine clearance is 59.9 mL/min (A) (by Cockcroft-Gault based on SCr of 1.5 mg/dL (H)). Lab Results Component Value Date CREATININE 1.50 (H) 10/23/2023 GFRNAA 53 (L) 10/23/2023 AST 17 10/23/2023 ALT 15 10/23/2023 ALKPHOS 124 10/23/2023 HGB 11.7 (L) 10/23/2023 WBC 3.9 10/23/2023 NEUTROABS 2.2 10/23/2023 LYMPHSABS 1.2 10/23/2023 LABPLAT 169 10/23/2023 Notable imaging: none Assessment/Plan # Osteoarthritis # L knee pain # positive anti CCP Although he has high titer CCP antibodies, clinically he does not have RA. X- rays of his hands and wrists from May 2021 were consistent with osteoarthritis. He is asymptomatic at the present time except for chronic left knee pain likely from osteoarthritis. I will get x-rays of bilateral hands and wrists today. We discussed his lab results and x-rays in detail today. Given he is asymptomatic atthis time, he does not warrant any treatment. If he has new joint symptoms, I will consider starting treatment. He understands and agrees with this plan. L knee pain likely from osteoarthritis. - diagnostic L knee tap today (see separate procedure note) - Check uric acid, synovial studies - cont. Prn APAP, avoid NSAIDs 2/2 CKD # Health Maintenance Immunization History Administered Date(s) Administered DTP 05/14/1964, 06/25/1964, 08/13/1964, 08/18/1965, 11/10/1968 Flucelvax Influenza Quad 02/19/2017 Influenza, Quadrivalent, Cell Culture-based MDCK, Antibiotic Free, Intramuscular 01/27/2019 Influenza, Quadrivalent, Split, Intramuscular 02/14/2016 Influenza, Quadrivalent, Split, Preservative Free, Intramuscular 01/13/2018, 01/14/2018, 12/22/2019, 11/25/2021 Influenza, Trivalent, IM (MDV) 02/22/2015 MMR 08/26/1979 OPV 06/25/1964, 08/13/1964, 05/12/1965, 08/18/1965, 11/10/1968, 10/14/1979 Pfizer SARS-CoV-2 Monovalent Vaccination (12+ Yrs) PURPLE 06/26/2021 Pneumococcal Polysaccharide PPV23 06/02/2019 Td, adsorbed 07/31/1994, 08/01/2004 Tdap 12/27/2014 Due for COVID booster. Flu and RSV due fall 2023 Encounter orders: No orders of the defined types were placed in this encounter. RTC in 3 months Patient seen and discussed with Dr. Guero Pinon MD Clinical Fellow [facility], Division of Rheumatology Cosigned by Leana Jack MD at 11/08/2023 3:37 PM CDT Associated attestation - Leana Jack MD - 11/08/2023 3:37 PM CDT I have seen and examined the patient. I agree with the findings and plan of care as documented in the resident/fellow's note. My total encounter time on 11/03/2023 was 20 minutes which was spent in the activities documented in the note. This includes time spent prior to the visit and after the visitin direct care of the patient. This time does not include time spent in any separately reportable services. documented in this encounter Procedure Notes * Shahbaz Pinon MD - 11/03/2023 3:40 PM CDTAssociated Order(s): Arthrocentesis Large Joint: L knee Post-Procedure Diagnose(s): Effusion of left knee Arthrocentesis Large Joint: L knee Performed by: Shahbaz Pinon MD Authorized by: Shahbaz Pinon MD Large Joint Injection/Aspiration: Consent Given by: Patient Site marked: the procedure site was marked Timeout: prior to procedure the correct patient, procedure, and site was verified Verbal consent obtained: Yes Supporting Documentation: Indications: Diagnostic, joint swelling and pain Procedure Details: Location: Knee Site: L knee Prep: patient was prepped using a clean technique Needle Size: 18 G Approach: Anteromedial Ultrasound guided: No Fluroscopic guidance: No Aspirate amount (mL): 1.5 Aspirate: Serous Lab: fluid sent for laboratory analysis Patient tolerance: Patient tolerated the procedure well with no immediate complications Cosigned by Leana Jack MD at 11/08/2023 3:57 PM CDT Associated attestation - Leana Jack MD - 11/08/2023 3:57 PM CDT I was present for the entire procedure. documented in this encounter Plan of Treatment Not on file documented as of this encounter Procedures Procedure Name Priority Date/Time Associated Diagnosis Comments DC ARTHROCENTESIS ASPIR&/INJ MAJOR JT/BURSA W/O US Routine 11/03/2023 3:40 PM CDT Effusion of left knee documented in this encounter Results * Crystal Analysis, Body Fluid (11/03/2023 7:12 PM CDT) Specimen type, fld Synovial Crystals None Seen None Seen [facility] Fluid 11/03/2023 7:12 PM CDT 11/03/2023 8:58 PM CDT Narrative [facility] - 11/03/2023 10:24 PM CDT Specify:->left knee Shahbaz Pinon MD LAB BODY FLUIDS AND STOOL S ORDERABLES Final Result [facility] Department [place] [address] * Aerobic and anaerobic culture and gram stain Synovial fluid Knee, left (11/03/2023 7:12 PM CDT) Direct Specimen Exam Stain: Cytospin Gram stain shows: Moderate polymorphonuclear leukocytes seen. Red blood cells present. Other cellular material present. No organisms seen. Report Final Report: No growth [facility] Synovial fluid (Knee, left) 11/03/2023 7:12 PM CDT 11/03/2023 7:22 PM CDT Narrative [facility] - 11/08/2023 11:57 AM CDT Testing performed by [facility] Microbiology Laboratory ([phone]) Specimens submitted from normally sterile body sites will have all bacterial morphotypes identified. Specimens that contain grossly mixed melony and/or are from body sites that are not normally sterile will be examined for Staphylococcus aureus, Pseudomonas aeruginosa, beta-hemolytic strep, vancomycin-resistant Enterococcus, Bacteroides, Parabacteroides, Clostridium perfringens and fungus. If any of these are isolated, the organism will be reported. Current interpretive data was last revised on 2019. Shahbaz Pinon MD LAB MICROBIOLOGY - GENERA L ORDERABLES Final Result Performing Organization Address [facility] Co de Phone Number [facility] Department [place] [address] * (ABNORMAL) Cell count w/rflx diff, body fluid (11/03/2023 7:12 PM CDT) Specimen type, fld Synovial Color, fld Mimi [facility] Clarity, fld Cloudy(A) Clear [facility] Nucleated cells, fld 312 /cumm [facility] Comment: Interpretive Data Unless otherwise specified, the reference range and other method performance specifications have not been established for CSF/Body Fluid tests. ??The test results should be integrated into the clinical context for interpretation. Current interpretive data was last revised on 2018. RBC, fld 2,213 /cumm [facility] Fluid 11/03/2023 7:12 PM CDT 11/03/2023 8:58 PM CDT Narrative [facility] - 11/03/2023 10:24 PM CDT Specify:->Left knee Shahbaz Pinon MD LAB BODY FLUIDS AND STOOL S ORDERABLES Final Result Performing Organization Address [facility] Co de Phone Number [facility] [place] [address] * Uric acid (11/03/2023 5:00 PM CDT) Uric acid 4.7 3.0 - 8.0 mg/dL Blood 11/03/2023 5:00 PM CDT 11/03/2023 5:33 PM CDT us Shahbaz Pinon MD LAB BLOOD ORDERABLES Kelli bass Result [facility] [place] [address] * DC ARTHROCENTESIS ASPIR&/INJ MAJOR JT/BURSA W/O US (11/03/2023 3:40 PM CDT) Narrative Leana Jack MD - 11/03/2023 3:40 PM CDT Shahbaz Pinon MD ? 11/08/2023 ??3:37 PM Arthrocentesis Large Joint: L knee Performed by: Shahbaz Pinon MD Authorized by: Shahbaz Pinon MD ?? Large Joint Injection/Aspiration: ??Consent Given by: ??Patient ??Site marked: the procedure site was marked ?Timeout: prior to procedure the correct patient, procedure, and site was verified ?Verbal consent obtained: Yes ?? Supporting Documentation: ??Indications: ??Diagnostic, joint swelling and pain Procedure Details: ??Location: ??Knee ??Site: ??L knee ??Prep: patient was prepped using a clean technique ?Needle Size: ??18 G ??Approach: ??Anteromedial ??Ultrasound guided: No ?Fluroscopic guidance: No ?Aspirate amount (mL): ??1.5 ??Aspirate: ??Serous ??Lab: fluid sent for laboratory analysis ?Patient tolerance: ??Patient tolerated the procedure well with no immediate complications us Shahbaz Pinon MD IN CLINIC/BEDSIDE ORDERAB LES Final Result documented in this encounter Visit Diagnoses Diagnosis Effusion of left knee- Primary Arthralgia, unspecified joint Primary osteoarthritis of both hands Chronic pain of left knee Raised antibody titer Other and unspecified nonspecific immunological findings Effusion of left knee documented in this encounter Care Teams Marketing Services Rep Relationship Specialty Start Date End Date Juan M Doll MD [address] [place], [place] [id number] PCP - General Family Medicine 09/24/22 Khang Osullivan MD [address] [address] Consulting Physician Gastroenterology 11/25/22 documented as of this encounter
--- OUTSIDE RECORDS SUMMARY | 2024-03-04 10:33 | XMS_ITS | Encounter Summary ---
Author Organization [facility] Address [address] [place] [address] Care Team Providers Care Intelligence Officer Basic Name Role Phone Juan M Doll MD Primary Care Provider [phone] Reason for Visit * Reason Onset Date Comments Test Results 10/05/2022 Encounter Details Date Type Department Care Team (Late st Contact Info) Description 10/05/2022 Telephone [facility] Family Medicine [address] [facility] [address] [place] [address] Juan M Doll MD [address] [place] [id number] Test Results Social History Tobacco Use Types Packs/Day Years [...] on file 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 * Telephone Encounter - Gloria Zepeda - 10/08/2022 12:33 PM CDT Call Back Caller???s Concern: patient returning call from practice. CS does not completely understand the interpretation of results, so patient was transferred to back line. Caller???s Call back #: [phone] Does message need to be routed? No * Telephone Encounter - Paz Irwin RN - 10/06/2022 5:56 PM CDT Left VM to call back and med sent. * Telephone Encounter - Juan M Doll MD - 10/06/2022 5:45 PM CDT Hold tamsulosin and wixela while on med * Telephone Encounter - Paz Irwin RN - 10/06/2022 5:24 PM CDT Drug-Drug: tamsulosin and fwfsfwemfrd-tfygqovdhtrbrk-sfbqnoqplfhaSjlfwpyghexqmjyc of a strong CY inhibitor may cause an increase in silodosin and tamsulosin levels and effects, including severe hypotension.(1,2) Details Override reason ryslhjdgmwa-mzxjukeoxoabfi-radruniereqf (PREVPAC) 500-500-30 mg combo pack Prescription. New. Remove tamsulosin (FLOMAX) 0.4 mg extended release capsulePatient reported medication. Active. Discontinue Very High Drug-Drug: Wixela Inhub and ojrwcxrlgdb-ccxvlquyvpcnka-dzgpheaajiriMoopgatqbe of CY may result in increased systemic exposure to and effects from budesonide or fluticasone, including Linwood's syndrome and adrenal suppression. Systemic effects of salmeterol, including QTc prolongation, palpitations, and sinus tachycardia, may also occur.(1-18) Change or fill?? * Telephone Encounter - Juan M Doll MD - 10/05/2022 6:02 PM CDT Positive H pylori. Prev pac as directed * Telephone Encounter - Paz Irwin RN - 10/05/2022 3:53 PM CDT Contains abnormal data H. pylori breath test Order: [id number] Status: Final result Visible to patient: Yes (seen) 0 Result Notes Component Ref Range & Units 6 d ago H. pylori, breath test NOT DETECTED DETECTED Abnormal Please advise as it hasn't been addressed yet. * Telephone Encounter - Julissa Gilman - 10/05/2022 12:51 PM CDT Test Result Request Type of test: Labs Date of test: 09/29/22 Where was the test performed at? [facility] Did provider dictate result yet? No Caller's Callback #: [phone] Additional Questions/Comments: Patient calling for status update on labs ordered 09/29/22. Please advise with patient by phone to discuss blood work results. Does message need to be routed?Yes-Action Needed documented in this encounter Plan of Treatment Not on file documented as of this encounter Visit Diagnoses Not on filedocumented in this encounter Care Teams Intelligence Officer Basic Relationship Specialty Start Date End Date Juan M Doll MD [address] [facility] [address] [address] PCP - General Family Medicine 09/24/22 documented as of this encounter
--- OUTSIDE RECORDS SUMMARY | 2024-03-04 10:33 | XMS_ITS | Encounter Summary ---
Author Organization [facility] Address [address] [place] [address] Care Team Providers Care Support Services Manager Name Role Phone Juan M Doll MD Primary Care Provider [phone] Khang Osullivan MD Unavailable Encounter Details Date Type Department Care Team (Late st Contact Info) Description 11/03/2023 5:30 PM CDT Lab [facility] Advanced Medicine [facility] ([facility]) [address] [place] [phone] Chronic pain of left knee; Effusion of left knee Social History Tobacco Use [...] on file 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 Gender Identity Not on file Sexual Orientation Not on file documented as of this encounter Plan of Treatment Not on file documented as of this encounter Procedures Procedure Name Priority Date/Time Associated Diagnosis Comments URIC ACID Routine 11/03/2023 5:00 PM CDT Chronic pain of left knee Effusion of left knee documented in this encounter Results * Uric acid (11/03/2023 5:00 PM CDT) Uric acid 4.7 3.0 - 8.0 mg/dL Blood 11/03/2023 5:00 PM CDT 11/03/2023 5:33 PM CDT us Shahbaz Pinon MD LAB BLOOD ORDERABLES Kelli l Result Performing Organization Address City/State/[facility] Co tx Phone Number [facility] [place] [address] documented in this encounter Visit Diagnoses Diagnosis Chronic pain of left knee Effusion of left knee documented in this encounter Care Teams Support Services Manager Relationship Specialty Start Date End Date Juan M Doll MD [address] [address] PCP - General Family Medicine 09/24/22 Khang Osullivan MD [address] [facility] [place] [address] Consulting Physician Gastroenterology 11/25/22 documented as of this encounter
--- OUTSIDE RECORDS SUMMARY | 2024-03-04 10:33 | XMS_ITS | Encounter Summary ---
Author Organization [facility] Address [address] [place] [address] Phone Care Team Providers Care Supervisor Glycerin Name Role Phone Juan M Doll MD Primary Care Provider [phone] Khang Osullivan MD Unavailable Encounter Details Date Type Department Care Team (Late st Contact Info) Description 12/15/2023 Orders Only [facility] Surgery [address] [facility] [address] [place] [address] Dudley Cárdenas MD [address] [place] [address] Hydronephrosis, unspecified hydronephrosis type (Primary Dx); BPH with obstruction/lower urinary tract symptoms Social History Tobacco Use Types Packs/Day Years [...] on file 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 Gender Identity Not on file Sexual Orientation Not on file documented as of this encounter Plan of Treatment Scheduled Orders Name Type Priority Associated Diagnoses Orde r Schedule Urine culture Urine, bladder Microbiology Routine Hydronephrosis, unspecified hydronephrosis type BPH with obstruction/lower urinary tract symptoms Expected: 12/15/2023, Expires: 12/14/2024 documented as of this encounter Visit Diagnoses Diagnosis Hydronephrosis, unspecified hydronephrosis type- Primary BPH with obstruction/lower urinary tract symptoms documented in this encounter Care Teams Supervisor Glycerin Relationship Specialty Start Date End Date Juan M Doll MD [address] [facility] [address] [address] PCP - General Family Medicine 09/24/22 Khang Osullivan MD [address] [address] Consulting Physician Gastroenterology 11/25/22 documented as of this encounter
--- OUTSIDE RECORDS SUMMARY | 2024-03-04 10:33 | XMS_ITS | Encounter Summary ---
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 Gender Identity Not on file Sexual Orientation Not on file documented as of this encounter Plan of Treatment Not on file documented as of this encounter Procedures Procedure Name Priority Date/Time Associated Diagnosis Comments GI - RESULT 02/02/2023 documented in this encounter Results * GI - RESULT (02/02/2023) Anatomical Region Laterality Modality Other us Juan M Doll MD Final Result documented in this encounter Visit Diagnoses Not on filedocumented in this encounter Care Teams Bow Tacker Relationship Specialty Start Date End Date Juan M Doll MD [address] [facility] [address] [place] [address] PCP - General Family Medicine 09/24/22 Khang Osullivan MD [address] [facility] [address] [address] Consulting Physician Gastroenterology 11/25/22 documented as of this encounter
--- OUTSIDE RECORDS SUMMARY | 2024-03-04 10:33 | XMS_ITS | Encounter Summary ---
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 Gender Identity Not on file Sexual [...] Procedure Name Priority Date/Time Associated Diagnosis Comments CRYSTAL ANALYSIS, BODY FLUID Routine 11/03/2023 7:12 PM CDT Effusion of left knee CELL DIFFERENTIAL, BODY FLUID Routine 11/03/2023 7:12 PM CDT Effusion of left knee CELL COUNT W/REFLEX DIFFERENTIAL, BODY FLUID Routine 11/03/2023 7:12 PM CDT Effusion of left knee AEROBIC AND ANAEROBIC CULTURE AND GRAM STAIN Routine 11/03/2023 7:12 PM CDT Effusion of left knee documented in this encounter Results * Cell Differential, Body Fluid (11/03/2023 7:12 PM CDT) Total cells diffed 100 cells Comment: Interpretive Data Unless otherwise specified, the reference range and other method performance specifications have not been established for CSF/Body Fluid tests. ??The test results should be integrated into the clinical context for interpretation. Current interpretive data was last revised on 2018. Neutrophils, fld 2 % [facility] Lymphs, fld 47 % [facility] Monocyte, fld 12 % [facility] Macrophages, fld 32 % [facility] Mesothelial cells, fld 7 % [facility] Fluid 11/03/2023 7:12 PM CDT 11/03/2023 8:58 PM CDT Shahbaz Pinon MD LAB BODY FLUIDS AND STOOL S ORDERABLES Final Result Performing Organization Address [facility] Co de Phone Number [facility] Department [place] [address] * (ABNORMAL) Cell count w/rflx diff, body fluid (11/03/2023 7:12 PM CDT) Specimen type, fld Synovial Color, fld Mimi [facility] Clarity, fld Cloudy(A) Clear [facility] Nucleated cells, fld 312 /cumm [facility] Comment: Interpretive Data Unless otherwise specified, the reference range and other method performance specifications have not been established for CSF/Body Fluid tests. ??The test results should be integrated into the clinical context for interpretation. Current interpretive data was last revised on 2018. RBC, fld 2,213 /cumm [facility] Fluid 11/03/2023 7:1 2 PM CDT 11/03/2023 8:58 PM CDT Narrative [facility] - 11/03/2023 10:24 PM CDT Specify:->Left knee Shahbaz Pinon MD LAB BODY FLUIDS AND STOOL S ORDERABLES Final Result Performing Organization Address [facility] Co de Phone Number [facility] [address] * Aerobic and anaerobic culture and gram stain Synovial fluid Knee, left (11/03/2023 7:12 PM CDT) Direct Specimen Exam Stain: Cytospin Gram stain shows: Moderate polymorphonuclear leukocytes seen. Red blood cells present. Other cellular material present. No organisms seen. Report Final Report: No growth [facility] Synovial fluid (Knee, left) 11/03/2023 7:12 PM CDT 11/03/2023 7:22 PM CDT Narrative [facility] - 11/08/2023 11:57 AM CDT Testing performed by [facility] ([phone]) Specimens submitted from normally sterile body sites [...] L ORDERABLES Final Result Performing Organization Address [facility] Co de Phone Number [facility] Department [place] [address] * Crystal Analysis, Body Fluid (11/03/2023 7:12 PM CDT) Specimen type, fld Synovial Crystals None Seen None Seen [facility] Fluid 11/03/2023 7:12 PM CDT 11/03/2023 8:58 PM CDT Narrative [facility] - 11/03/2023 10:24 PM CDT Specify:->left knee Shahbaz Pinon MD LAB BODY FLUIDS AND STOOL S ORDERABLES Final Result Performing Organization Address [facility] Co de Phone Number [facility] Department [place] [address] documented in this encounter Visit Diagnoses Diagnosis Effusion of left knee documented in this encounter Care Teams Baker Test Relationship Specialty Start Date End Date Juan M Doll MD [address] [facility] [address] [place] [address] PCP - General Family Medicine 09/24/22 Khang Osullivan MD [address] [facility] [address] [address] Consulting Physician Gastroenterology 11/25/22 documented as of this encounter
--- OUTSIDE RECORDS SUMMARY | 2024-03-04 10:33 | XMS_ITS | Encounter Summary ---
Author Organization 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 Discontinue keflex, switch to macrobid 100mgBID x 5 days documented in this encounter Plan of Treatment Not on file documented as of this encounter Visit Diagnoses Not on filedocumented in this encounter Care Teams Pastry Mixer Relationship Specialty Start Date End Date Juan M Doll MD [address] [facility] [address] [address] PCP - General Family Medicine 09/24/22 Khang Osullivan MD [address] [address] Consulting Physician Gastroenterology 11/25/22 documented as of this encounter
--- OUTSIDE RECORDS SUMMARY | 2024-03-04 10:33 | XMS_ITS | Encounter Summary ---
Author Organization [facility] Address [address] 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 Patient requesting a call back Patient Provider:[facility] Information: Outcome/Plan: documented in this encounter Plan of Treatment Not on file documented as of this encounter Visit Diagnoses Not on filedocumented in this encounter Care Teams Mac Developer Relationship Specialty Start Date End Date Juan M Doll MD [address] [address] PCP - General Family Medicine 09/24/22 Khang Osullivan MD [address] [address] Consulting Physician Gastroenterology 11/25/22 documented as of this encounter
--- OUTSIDE RECORDS SUMMARY | 2024-03-04 10:34 | XMS_ITS | Encounter Summary ---
Author Organization [facility] Healthcare Address [address] [place] [address] Care Team Providers Care Mini Shifter Name Role Phone Hero Acevedo MD Primary Care Provider [phone] Reason for Referral * Diagnostic Lab (Routine) - Closed Specialty Diagnoses / Procedures Referred By Contac t Referred To Contact Lab Diagnoses BPH with obstruction/lower urinary tract symptoms Procedures Cytology Dudley Cárdenas MD [address] [facility] [address] [place] [address] Phone: tel: fax: Referral ID Status Reason Start Date Expiration Date Visits Re quested Visits Authorized [id number] Closed 03/24/2022 04/23/2023 1 1 GER VALUATION Encounter Details Date Type Department Care Team (Latest Contact Info) Description 03/24/2022 10:25 AM MANAGER VALUATION - 03/24/2022 11:59 PM MANAGER VALUATION Hospital Encounter [facility] [address] [address] BPH with obstruction/lower urinary tract symptoms Discharge Disposition: Discharge to home or self [...] you are drinking? Patient does not drink 2 Q3: How often do you have si x or more drinks on one occasion? 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 Gender Identity Not on file Sexual Orientation [...] tablets (4,000 Units total) by mouth daily lactobacillus comb no.10 [...] total) by mouth daily 30 packet 02/12/2022 lidocaine (LMX) 4 % cream Apply 2.5 g (1 application total) topically 4 (four) times a day as needed for pain 30 g 02/12/2022 3 sodium zirconium cyclosilicate (Lokelma) 5 gram packetIndications: hyperkalemia Take 1 packet (5 g total) by mouth daily 30 packet 02/19/2022 3 tamsulosin (FLOMAX) 0.4 mg extended release capsule TAKE 1 CAPSULE(0.4 MG) BY MOUTH EVERY NIGHT 90 capsule 3 03/13/2022 3 turmeric (CURCUMIN MISC) 4 UNABLE TO FIND Take 1 each by mouth daily Med Name: tumeric/cucumin 4 venlafaxine XR (EFFEXOR-XR) 37.5 mg 24 hr capsuleIndications :Depression, unspecified depression type Take 1 capsule (37.5 mg total) by mouth daily. 30 capsule 3 11/29/2017 4 Wixela Inhub 250-50 mcg/dose diskus inhaler INHALE 1 PUFF BY MOUTH DAILY. RINSE MOUTH WITH WATER AFTER USE TO REDUCE AFTERTASTE AND INCIDENCE OF CANDIDIASIS. DO NOT SWALLOW 60 each 2 06/02/2021 3 documented as of this encounter Discharge Disposition Disposition Code Departure Means Destination Discharge to home or self care documented in this encounter Plan of Treatment Not on file documented as of this encounter Procedures Procedure Name Priority Date/Time Associated Diagnosis Comments URINE CULTURE Routine 03/24/2022 3:25 PM MANAGER VALUATION BPH with obstruction/lower urinary tract symptoms CYTOLOGY Routine 03/24/2022 12:00 AM MANAGER VALUATION BPH with obstruction/lower urinary tract symptoms documented in this encounter Results * (ABNORMAL) Urine culture Urine, cystoscopic (03/24/2022 3:25 PM MANAGER VALUATION) Report Final Report: 1,000 to 10,000 colonies/mL of Staphylococcus aureus Methicillin susceptible (MSSA) by penicillin binding protein 2a (PBP2a) testing. 1,000 to 10,000 colonies/mL of Staphylococcus aureus #2 Methicillin susceptible (MSSA) by penicillin binding protein 2a (PBP2a) testing. 1,000 to 10,000 colonies/mL of Enterococcus faecalis * ??* ??* ??* ??* ??* ??* ??* ??* ??* ??* ??* ??* ??* ??* ??* ??* ??* ??* ??* 1,000 to 10,000 colonies/mL of Coagulase negative Staphylococcus species not S. lugdunensis or S. saprophyticus (.) [facility] Comment:Testing performed by : , [address] [place]., [address] Organism STAPHYLOCOCCUS AUREUS [facility] Organism ENTEROCOCCUS FAECALIS [facility] Organism COAGULASE NEGATIVE STAPHYLOCOCCUS SPECIES [facility] Organism STAPHYLOCOCCUS AUREUS [facility] Urine, cystoscopic 3:25 PM MANAGER VALUATION 03/25/2022 8:31 PM MANAGER VALUATION Narrative [facility] - 03/29/2022 3:20 PM MANAGER VALUATION Testing performed by Microbiology Laboratory ([phone]) Organism Antibiotic Method Susceptibility Staphylococcus aureus Vancomycin INTERPRETATION Susceptible Staphylococcus aureus Trimethoprim with Sulfamethoxazole INTERPRETATION Susceptible Staphylococcus aureus Linezolid INTERPRETATION Susceptible Staphylococcus aureus Doxycycline INTERPRETATION Susceptible Staphylococcus aureus Nitrofurantoin INTERPRETATION Susceptible Staphylococcus aureus Oxacillin INTERPRETATION Susceptible Staphylococcus aureus Cefazolin INTERPRETATION Susceptible Staphylococcus aureus Ceftriaxone INTERPRETATION Susceptible Enterococcus faecalis Ampicillin INTERPRETATION Susceptible Enterococcus faecalis Vancomycin INTERPRETATION Susceptible Enterococcus faecalis Nitrofurantoin INTERPRETATION Susceptible Enterococcus faecalis Doxycycline INTERPRETATION Susceptible Staphylococcus aureus Vancomycin INTERPRETATION Susceptible Staphylococcus aureus Trimethoprim with Sulfamethoxazole INTERPRETATION Susceptible Staphylococcus aureus Linezolid INTERPRETATION Susceptible Staphylococcus aureus Doxycycline INTERPRETATION Susceptible Staphylococcus aureus Nitrofurantoin INTERPRETATION Susceptible Staphylococcus aureus Oxacillin INTERPRETATION Susceptible Staphylococcus aureus Cefazolin INTERPRETATION Susceptible Staphylococcus aureus Ceftriaxone INTERPRETATION Susceptible Dudley Cárdenas MD LAB MICROBIOLOGY - GENERAL ORDER RODRIGUEZ Final Result [facility] [address] [facility] Department [place] [address] * Cytology (03/24/2022 12:00 AM MANAGER VALUATION) Fluid (Urine, catherized (Cytology)) 03/24/2022 03/26/2022 8:25 AM MANAGER VALUATION Narrative PATHOLOGY [facility] - 03/27/2022 3:45 PM MANAGER VALUATION EPIC results best viewed via link to PDF [facility] Collette Lopez Laboratory [place] [address] Note to Patients: This report may contain a detailed description of human tissue sent by a health care provider to the laboratory for pathologic evaluation. The content of this report is essential for diagnosis and may provide important critical findings. This information may be unfamiliar to patients to review without a medical professional present. It is advised that the patient review this report in the presence of a health care provider who can answer questions and explain the details. CYTOPATHOLOGY REPORT FINAL Patient Name: ?? DONELL BAKER Gender: ??M : ??1965 (Age: 56) Address: ??[address] ??[address] Hospital #: ??[id number] Taken:03/24/2022 Received:03/26/2022 Reported: 03/27/2022 Patient Type: MHE SPECIMEN ?? Service: DEFAULT Location: Physician(s): ??Dudley Cárdenas M.D. FINAL DIAGNOSIS A. ??Urine, cystoscopic:(SurePath) - Unsatisfactory for diagnosis due to insufficient cellularity and insufficient sample vpad/03/27/2022 15:45 By this signature, I attest that the above diagnosis is based upon my personal examination of the slides(and/or other material indicated in the diagnosis). Melinda Weaver M.D. Report Electronically Reviewed and Signed Out By ??Melinda Weaver M.D. 03/27/2022 15:45:44 Graeme Morales, [facility](ASCP), [facility] Gross Description A. ??Urine, cystoscopic: ??20 ml of pink fluid in CytoRich Red vial - 1 Pap stained Sure Path. ??(cy) Recieved 20ml of cloudy pale pink fluid. Clinical Diagnosis and History The patient is a 56 year old man with hydronephrosis. REPORT IMAGES AND SCANNED DOCUMENTS, IF INCLUDED, ONLY VIEWABLE IN PDF VERSION OF REPORT The performance characteristics of some immunohistochemical stains, in-situ hybridization and fluorescence in-situ hybridization tests and immunophenotyping by flow cytometry cited in this report (if any) were determined by the Surgical Pathology and Flow Cytometry Departments at as part of an ongoing quality specialist program and in compliance with federally mandated regulations drawn from the Clinical Laboratory Improvement Act of 1988 (CLIA '88). ??Some of these tests rely on the use of analyte specific reagents and are subject to specific labeling requirements by the US Food and Drug Administration. ??Such diagnostic tests may only be performed in a facility that is certified by the Department of Health and Human Services as a high complexity laboratory under CLIA '88. ??The FDA has determined that such clearance or approval is not necessary. ??This test is used for clinical purposes. ??It should not be regarded as investigational or for research. ??Nevertheless, federal rules concerning the medical use of analyte specific reagents require that the following disclaimer be attached to the report: ??This test was developed and its performance characteristics determined by the Surgical Pathology and Flow Cytometry Departments of . ??It has not been cleared or approved by the U. S. Food and Drug Administration. Dudley Cárdenas MD LAB CYTOLOGY ORDERABLES Final Re sult PATHOLOGY [facility] documented in this encounter Visit Diagnoses Diagnosis BPH with obstruction/lower urinary tract symptoms documented in this encounter Care Teams Mini Shifter Relationship Specialty Start Date End Date Hero Acevedo MD [facility] [address] [place] [address] PCP - General Cardiovascular Disease 11/23/17 3 documented as of this encounter
--- OUTSIDE RECORDS SUMMARY | 2024-03-04 10:34 | XMS_ITS | Encounter Summary ---
Author Organization 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 Cleveland called concerning pt. FMLA paperwork on pt. The Urologist is the one that needs to be contacted concerning pt. And Ms. Cleveland understood. The urologist is the one who took care of getting the bladder bag for pt. Ms. Cleveland will note that and talk with Vidhi Sofia. TAMPING MACHINE OPERATOR documented in this encounter Plan of Treatment Not on file documented as of this encounter Visit Diagnoses Not on filedocumented in this encounter Care Teams Technical Lead Relationship Specialty Start Date End Date Hero Acevedo MD [address] [facility] [address] [place] [address] PCP - General Cardiovascular Disease 11/23/17 3 documented as of this encounter
--- OUTSIDE RECORDS SUMMARY | 2024-03-04 10:34 | XMS_ITS | Encounter Summary ---
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 Gender Identity Not on file Sexual Orientation Not on file documented as of this encounter Ordered Prescriptions Prescription Sig Dispense Quantity Refills Last Filled Start Date End Date chlorthalidone 25 mg tablet Take 2 tablets (50 mg total) by mouth daily 180 tablet 3 09/04/2022 3 documented in this encounter Miscellaneous Notes * Telephone Encounter - Feliberto Munoz MD - 09/04/2022 1:02 PM CDT Rx sent documented in this encounter Plan of Treatment Not on file documented as of this encounter Visit Diagnoses Not on filedocumented in this encounter Discontinued Medications Medication Sig Discontinue Reason Start Date End Da te chlorthalidone 25 mg tablet Take 2 tablets (50 mg total) by mouth daily Reorder 08/13/2022 09/04/2022 documented as of this encounter Care Teams Blood Bank Credit Clerk Relationship Specialty Start Date End Date Hero Acevedo MD [address] [place] [address] DR [address] [place] [address] PCP - General Cardiovascular Disease 11/23/17 3 documented as of this encounter
--- OUTSIDE RECORDS SUMMARY | 2024-03-04 10:34 | XMS_ITS | Encounter Summary ---
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 Pt to stop by [place] office. Was advised to fruit picker by 3:30 07/31/22 MJosh TELLO documented in this encounter Plan of Treatment Not on file documented as of this encounter Visit Diagnoses Not on filedocumented in this encounter Care Teams Heel Gouger Relationship Specialty Start Date End Date Hero Acevedo MD [facility] [address] [place] [address] PCP - General Cardiovascular Disease 11/23/17 3 documented as of this encounter
--- OUTSIDE RECORDS SUMMARY | 2024-03-04 10:34 | XMS_ITS | Encounter Summary ---
Author Organization [facility] Address [address] [facility] [address] [place] [address] Phone Care Team Providers Care Fumigator And Sterilizer Name Role Phone Hero Acevedo MD Primary Care Provider [phone] Reason for Referral * Diagnostic Lab (Routine) - Closed Specialty Diagnoses / Procedures Referred By Margie norton Referred To Contact Lab Diagnoses BPH with obstruction/lower urinary tract symptoms Procedures Cytology Dudley Cárdenas MD [address] [place] [address] Phone: tel: fax: Referral ID Status Reason Start Date Expiration Date Visits Re quested Visits Authorized [id number] Closed 03/24/2022 04/23/2023 1 1 STEM SAWYER * Diagnostic Imaging (Routine) - Closed Specialty Diagnoses / Procedures Referred By Margie norton Referred To Contact Diagnoses Hydronephrosis, unspecified hydronephrosis type Procedures US Kidney Complete Dudley Cárdenas MD [address] [place] [address] Phone: tel: fax: [address] [phone] Referral ID Status Reason Start Date Expiration Date Visits Re quested Visits Authorized [id number] Closed 03/24/2022 04/23/2023 1 1 STEM SAWYER Reason for Visit * Reason Comments Hydronephrosis * Consultation (Routine) - Closed Specialty Diagnoses / Procedures Referred By Margie t Referred To Contact Urology Diagnoses Hydronephrosis, unspecified hydronephrosis type Hero Acevedo MD [address] [address] [address] Song [facility] [address] [place] [address] Phone: tel: fax: [facility] (All Locations) Referral ID Status Reason Start Date Expiration Date V isits Requested Visits Authorized [id number] Closed Specialty Services Required 02/13/2022 03/15/2023 99 99 Encounter Details Date Type Department Care Team (Latest Contact Info) Description 03/24/2022 2:20 PM PIPE STEM SAWYER Office Visit [facility] [address] [place] [address] Dudley Cárdenas MD [address] [place] [address] BPH with obstruction/lower urinary tract symptoms (Primary Dx); Hydronephrosis, unspecified hydronephrosis type Social History Tobacco Use Types Packs/Day Years [...] on file Legal Sex Male 3:46 AM PIPE STEM SAWYER Gender Identity Not on file Sexual Orientation Not on file documented as of this encounter Progress Notes * Dudley Cárdenas MD - 03/24/2022 2:20 PM CST Images from the original note were not included. UROLOGY CLINIC FOLLOW UP NOTE Patient Name: Donell Sofia Referred by: Hero Acevedo MD PCP: Hero Acevedo MD Date of Visit: 03/24/2022 Chief Complaint: Follow up of hydronephrosis, urinary retention and gross hematuria HPI: Donell Sofia is a 56 y.o. male who is presenting for cystoscopy. Patient was seen on 02/09/22 during admission for hyperkalemia and acute on chronic kidney injury. He has a history of gross hematuria in the 80's or 's evaluated with cystoscopy. Dog Trainer was 2.6 and he was found to have hydronephrosis on renal artery doppler on 02/02/22. Dominguez catheter was placed and pizzamaker improved to williams of 1.7 but has gone up to 2.2-2.5. He had hematuria after catheter was placed and CT a/p wo contrast on 02/09/22 demonstrated thickened bladder with dominguez in place and similar bilateral hydroureteronephrosis. Last PSA was 0.96 on 11/25/21. He was discharged on 02/12/22. Today on 03/24/22 he presents for cystoscopy. He has not had a voiding trial. He is on tamsulosin. No further hematuria or catheter discomfort. Reports having LUTS for approximately 2 years prior to catheter placement. He is interested in voiding trial. He does not desire to learn CIC. Allergies as of 03/24/2022 - Reviewed 03/20/2022 Allergen Reaction Noted Tetracycline Swelling 05/28/2021 Glutathione (bulk) Unknown 11/29/2017 Prozac [fluoxetine] Unknown 11/29/2017 Sulfa (sulfonamide antibiotics) Diarrhea 02/04/2022 Current Outpatient Medications: acidophilus-pectin, citrus 100 million cell-10 mg capsule, Take 1 capsule by mouth daily, Disp: , Rfl: albuterol HFA (ProAir HFA) 90 mcg/actuation inhaler, Inhale 2 puffs every 4 (four) hours as needed for wheezing or shortness of breath, Disp: 3 each, Rfl: 3 bisacodyl EC (DULCOLAX EC) 5 mg EC tablet, Take 2 tablets (10 mg total) by mouth daily as needed for constipation (Patient not taking: Reported on 03/18/2022), Disp: 30 tablet, Rfl: 0 cholecalciferol (VITAMIN D-3) 25 mcg (1,000 unit) tablet, Take 4,000 Units by mouth daily, Disp: , Rfl: docusate sodium (COLACE) 100 mg capsule, Take 1 capsule (100 mg total) by mouth 2 (two) times a day(Patient not taking: Reported on 03/18/2022), Disp: 60 capsule, Rfl: 0 lactulose solution 10 gram/15mL, Take 30 mL (20 g total) by mouth daily as needed (conspitation) (Patient not taking: Reported on 03/18/2022), Disp: 300 mL, Rfl: 0 lidocaine (LMX) 4 % cream, Apply 2.5 g (1 application total) topically 4 (four) times a day as needed for pain (Patient not taking: Reported on 03/18/2022), Disp: 30 g, Rfl: 0 PARoxetine (PAXIL) 30 mg tablet, Take 1 tablet (30 mg total) by mouth every morning., Disp: 30 tablet, Rfl: 3 polycarbophil (FIBERCON) 625 mg tablet, Take 625 mg by mouth daily, Disp: , Rfl: polyethylene glycol (MIRALAX) 17 gram packet, Take 1 packet (17 g total) by mouth daily (Patient not taking: Reported on 03/18/2022), Disp: 30 packet, Rfl: 0 sodium zirconium cyclosilicate (Lokelma) 5 gram packet, Take 1 packet (5 g total) by mouth daily, Disp: 30 packet, Rfl: PRN tamsulosin (FLOMAX) 0.4 mg extended release capsule, TAKE 1 CAPSULE(0.4 MG) BY MOUTH EVERY NIGHT, Disp: 90 capsule, Rfl: 3 turmeric (CURCUMIN MISC), , Disp: , Rfl: UNABLE TO FIND, Take 1 each by mouth daily Med Name: tumeric/cucumin, Disp: , Rfl: venlafaxine XR (EFFEXOR-XR) 37.5 mg 24 hr capsule, Take 1 capsule (37.5 mg total) by mouth daily., Disp: 30 capsule, Rfl: 3 Wixela Inhub 250-50 mcg/dose diskus inhaler, INHALE 1 PUFF BY MOUTH DAILY. RINSE MOUTH WITH WATER AFTER USE TO REDUCE AFTERTASTE AND INCIDENCE OF CANDIDIASIS. DO NOT SWALLOW, Disp: 60 each, Rfl: 2 Past Medical History: Diagnosis Date Anxiety Arthritis 1977 Asthma Cancer (CMS/HCC) (HCC) 2002 Chronic fatigue Constipation Depression OCD (obsessive compulsive disorder) Sleep apnea 2002 Thyroid disease 2000 Tuberculosis 1974 Past Surgical History: Procedure Laterality [...] Partners: Female Alcohol Use: Not At Risk Frequency of Alcohol Consumption: Never Average Number of Drinks: Patient does not drink Frequency of Binge Drinking: Never Review of systems: A complete review of systems was taken from the patient today and reviewed, this was scanned into the patient's chart. As per HPI. Physical Exam: There were no vitals taken for this visit. Constitutional: no acute distress Skin/Integumentary: no exposed bruising or rashes Eyes: Extraocular muscles intact, mucous membranes normal Ears, Nose, Mouth/Throat: neck normal range of motion and trachea midline Respiratory: No coarse breath sounds or wheezing, breathing symmetric Gastrointestinal: Non-distended, soft, non-tender, no hernia, no masses Genitourinary: No CVA tenderness Psychiatric: Mood and affect appropriate, alert and oriented Neurologic: Speech clear, grossly normal movement/strength Lab/Radiology/Diagnostic Review: Results: No results found. Lab Results Component Value Date PSA 0.96 11/25/2021 PSA 0.7 08/06/2020 PSA 0.7 12/24/2018 CT Abdomen Pelvis WO Contrast 02/09/2022 Narrative EXAM DESCRIPTION: CT ABDOMEN PELVIS WO CONTRAST REASON FOR STUDY: Hydronephrosis, Gross hematuria, assessment of prostate size, and follow up on hydronephrosis post dominguez placement Hematuria and constipation since 02/04/22. TECHNIQUE: CT scan of the abdomen and pelvis performed without intravenous and without oral contrast using helical scanning technique. Reconstructed coronal and sagittal MPR images reviewed. All images stored on PACS. Automated exposure control was used as a dose optimization technique for this examination. COMPARISON: Correlation is made with renal ultrasound performed 02/04/2022 FINDINGS: The sensitivity for detection of visceral lesions is diminished without the use of intravenous contrast. The liver and spleen are normal in length. There are no radiodense gallstones. There is no peripancreatic inflammation or adrenal mass. There is mild bilateral hydronephrosis with proximal ureterectasis. Subjectively this appears similar or perhaps minimally improved compared to recent ultrasound given differences in imaging modality. The urinary bladder wall is diffusely thickened. There is a Dominguez catheter. The prostate measures 4.5 x 3.3 x 3.8 cm. There is no bowel obstruction. Normal appendix. There are vascular calcifications. No free intraperitoneal air or free fluid is seen. There is no acute skeletal abnormality. There is grade 1 anterolisthesis of L4 on L5 and grade 1 retrolisthesis of L5 on S1. There is mild osteoarthritis in the hip joints. Impression 1. Diffuse urinary bladder wall thickening. This could be due to cystitis or bladder outlet obstruction. 2. Bilateral hydronephrosis and proximal ureterectasis which appears similar or perhaps minimally improved compared to recent ultrasound given differences in imaging modality. REFERENCE: Unless otherwise specified, no follow-up imaging is recommended for incidental renal and adrenal lesions per consensus recommendations based on imaging criteria. Further lab evaluation could be pursued based on clinical findings. Management of the Incidental Renal Mass on CT: A White Paper of the ACR Incidental Findings Committee. J Am Bin Radiol. 2018 Apr;15(2):264-273. Management of Incidental Adrenal Masses: A White Paper of the ACR Incidental Findings Committee. J Am Bin Radiol. 2017 Oct;14(8):9090-8452. THIS IS AN ELECTRONICALLY VERIFIED FINAL REPORT 02/09/2022 3:35 PM - Electronically signed by Rosas Grossman M.D., JR T: Report ID: [id number] Reading Location: [place] [address] I have personally reviewed and independently examined the renal US and CT images. My findings are reported in my discussion. Procedure: Cystourethroscopy Indication: Hematuria and urinary retention Performing practitioner: Dudley Cárdenas MD, MD Anesthesia: Lidocaine 1% per urethra Procedure: The patient's penis was prepped in standard sterile fashion and viscous lidocaine was instilled perurethra. A 17-Fr flexible cystoscope was introduced into his urethra. His urethra was without stricture. Prostate was enlarged and with a median lobe. Metcalf endoscopy of his bladder was notable for bullous edema from indwelling dominguez. Bilateral ureteral orifices were orthotopic and normal appearing. Retroflexion revealed no abnormalities of the bladder neck. Scope was withdrawn and urethra was normal appearing. Bladder washings were not obtained. Scope was removed and procedure was concluded. Thepatient tolerated the procedure well without complication. Assessment/Plan: Donell Sofia is a 56 y.o. male with recent urinary retention with bilateral hydronephrosis and CHIO. Has had a dominguez for the past 2 months. Cystoscopy notable for a ball-valving median lobe. Offered options of TURP, voiding trial, CIC, continuing dominguez catheter. At this time he would like to attempt voiding trial. Catheter was not replaced after cystoscopy. He was instructed to present back ifhe is unable to void. He will have close follow up arranged. Given his hydronephrosis and median lobe I think he would be best served with a TURP in the alf. He is not prepared for this at the current time Plan summary: Catheter removed today RTC in 2-4 weeks with BMP, renal US, PVR and IPSS If patient is unable to void he will go to NIKKI Cárdenas MD District Operations Manager Urologic Surgery [facility] Please note: Court Deputy completed using M*Modal Fluency Direct speaking software, therefore, variances/typos may occur. STEM SAWYER * Haleigh Finley RMA - 03/24/2022 2:20 PM CST .k STEM SAWYER * Haleigh Finley RMA - 03/24/2022 2:20 PM CST Catheter Change Donell Sofia is here for catheter removal. The appearance of the urine in the catheter bag is yellow. Balloon deflated. 16 Fr straight latex dominguez catheter discontinued without problem. Balloon appearsintact. Pt was instructed he needs to void 4-6 hours and if unable to do so he should go to emergency room. Patient was discharged from the clinic and instructed on good fluid intake, cautioned regarding signs and symptoms of UTI and instructed to call with any questions or problems. Supervising provider present in the office at the time of the visit: MD Haleigh Maldonado STEM SAWYER documented in this encounter Miscellaneous Notes * Addendum Note - Deo Martinez CLT - 03/24/2022 2:20 PM CSTAddended by: DEO MARTINEZ on: 04/06/2022 04:27 PM Modules accepted: Orders STEM SAWYER * Addendum Note - Deo Martinez CLT - 03/24/2022 2:20 PM CSTAddended by: DEO MARTINEZ on: 04/06/2022 04:27 PM Modules accepted: Orders STEM SAWYER documented in this encounter Plan of Treatment Not on file documented as of this encounter Results * US Kidney Complete (04/20/2022 1:28 PM PIPE STEM SAWYER) Anatomical Region Laterality Modality Kidney N/A Ultrasound 04/20/2022 10:0 7 PM PIPE STEM SAWYER Narrative 04/20/2022 10:09 PM PIPE STEM SAWYER EXAM DESCRIPTION: ?? US KIDNEY COMPLETE REASON FOR STUDY: ?? For hydronephrosis and kidney stone follow-up. TECHNIQUE: Ultrasound of the kidneys and urinary bladder was performed with grayscale imaging. COMPARISON: ?? CT abdomen and pelvis 02/09/2022. FINDINGS: RIGHT KIDNEY: The right kidney measures ?? 11.1 ??cm in length. ?? There is moderate hydronephrosis. ??There is normal cortical thickness and increased echogenicity. LEFT KIDNEY: The left kidney measures ?? 10.9 ??cm in length. ?? There is moderate hydronephrosis. ??There is normal cortical thickness and increased echogenicity. URINARY BLADDER: ?? Fluid is present urinary bladder. ??There is debris noted in the bladder. ??The right ureteral flow jet is not seen. ??The left renal flow jet is noted. OTHER: ?? No other additional findings. IMPRESSION: 1. ?? Moderate bilateral hydronephrosis. 2. ?? Kidneys are echogenic evidence of medical renal disease. 3. ?? Left renal flow jet noted. ??Right ureteral flow jet is not seen. 4. ?? Distended urinary bladder with echogenic material suggests cystitis. ?? Correlation with urinalysis recommended. THIS IS AN ELECTRONICALLY VERIFIED FINAL REPORT 04/20/2022 10:09 PM - Electronically signed by ??Bebo Toribio M.D. CH: CH D: ??04/20/2022 10:09 PM T: ??04/20/2022 10:09 PM Report ID: [id number] Reading Location: ??[id number] Procedure Note Bebo Toribio Jr., MD - 04/20/2022 EXAM DESCRIPTION: US KIDNEY COMPLETE REASON FOR STUDY: For hydronephrosis and kidney stone follow-up. TECHNIQUE: Ultrasound of the kidneys and urinary bladder was performedwith grayscale imaging. COMPARISON: CT abdomen and pelvis 02/09/2022. FINDINGS: RIGHT KIDNEY: The right kidney measures 11.1 cm in length. There is moderate hydronephrosis. There is normal cortical thickness and increased echogenicity. LEFT KIDNEY: The left kidney measures 10.9 cm in length. There is moderate hydronephrosis. There is normal cortical thickness and increased echogenicity. URINARY BLADDER: Fluid is present urinary bladder. There is debrisnoted in the bladder. The right ureteral flow jet is not seen. The left renalflow jet is noted. OTHER: No other additional findings. IMPRESSION: 1. Moderate bilateral hydronephrosis. 2. Kidneys are echogenic evidence of medical renal disease. 3. Left renal flow jet noted. Right ureteral flow jet is not seen. 4. Distended urinary bladder with echogenic material suggests cystitis. Correlation with urinalysis recommended. THIS IS AN ELECTRONICALLY VERIFIED FINAL REPORT 04/20/2022 10:09 PM - Electronically signed by Bebo Toribio M.D. CH: CH Report ID: [id number] Reading Location: [id number] Dudley Cárdenas MD [facility] [place]ED[place] Final Result * (ABNORMAL) Basic metabolic panel (04/06/2022 4:27 PM PIPE STEM SAWYER) Sodium 139 135 - 145 mmol/L CERNER CH Potassium, pl 4.8 3.3 - 4.9 mmol/L C[facility] CH Chloride 105 97 - 110 mmol/L [facility] CO2 24 22 - 32 mmol/L [facility] Anion gap 10 2 - 15 mmol/L [facility] BUN 29(H) 8 - 25 mg/dL [facility] Creatinine 2.07(H) 0.80 - 1.30 mg/dL CERNER CH Glucose 68(L) 70 - 199 mg/dL CERNER CH Comment: Interpretive Data Fasting glucose >/= 126 [...] Current interpretive data was last revised 2022. Calcium 9.8 8.5 - 10.3 mg/dL CERNER CH Blood 04/06/2022 4:27 PM PIPE STEM SAWYER 04/06/2022 8:45 PM PIPE STEM SAWYER Dudley Cárdenas MD LAB BLOOD ORDERABLES Final Resul t [facility] [address] [address] [place] [address] * (ABNORMAL) Urine culture Urine, cystoscopic (03/24/2022 3:25 PM PIPE STEM SAWYER) Report Final Report: 1,000 to 10,000 colonies/mL [...] S. lugdunensis or S. saprophyticus (.) SERA ACKERMAN Comment:Testing performed by : [facility], [address] [place]., [address] Organism STAPHYLOCOCCUS AUREUS SERA Organism ENTEROCOCCUS FAECALIS SERA Organism COAGULASE NEGATIVE STAPHYLOCOCCUS SPECIES SERA Organism STAPHYLOCOCCUS AUREUS SERA Urine, cystoscopic 3:25 PM PIPE STEM SAWYER 03/25/2022 8:31 PM PIPE STEM SAWYER Narrative SERA - 03/29/2022 3:20 PM PIPE STEM SAWYER Testing performed by [facility] Microbiology Laboratory ([phone]) Organism Antibiotic Method Susceptibility Staphylococcus aureus Vancomycin [...] INTERPRETATION Susceptible Staphylococcus aureus Ceftriaxone INTERPRETATION Susceptible us Dudley Cárdenas MD LAB MICROBIOLOGY - GENERAL ORDER RODRIGUEZ Final Result SERA ACKERMAN [address] [facility] Department [place] [address] * Cytology (03/24/2022 12:00 AM PIPE STEM SAWYER) Fluid (Urine, catherized (Cytology)) 03/24/2022 03/26/2022 8:25 AM PIPE STEM SAWYER Narrative PATHOLOGY [facility] - 03/27/2022 3:45 PM PIPE STEM SAWYER EPIC results best viewed via link to PDF [facility] [place] [address] Note to Patients: This report may contain [...] CYTOPATHOLOGY REPORT FINAL Patient Name: ?? DONELL SOFIA Gender: ??M : ??1965 (Age: 56) Address: ??[address] [place] [address] ??[id number] [facility] #: ??[id number] Taken:03/24/2022 Received:03/26/2022 Reported: 03/27/2022 Patient Type: MHE [...] ??Melinda Weaver M.D. 03/27/2022 15:45:44 Graeme Morales, [facility](ASCP), [facility] Gross Description A. ??Urine, cystoscopic: ??20 ml [...] Surgical Pathology and Flow Cytometry Departments at [facility] as part of an ongoing quality control representative program and in compliance with federally mandated [...] Surgical Pathology and Flow Cytometry Departments of [facility]. ??It has not been cleared or approved by the U. S. Food and Drug Administration. Dudley Cárdenas MD LAB CYTOLOGY ORDERABLES Final Re sult PATHOLOGY [facility] documented in this encounter Visit Diagnoses Diagnosis BPH with obstruction/lower urinary tract symptoms- Primary Hydronephrosis, unspecified hydronephrosis type BPH with obstruction/lower urinary tract symptoms Hydronephrosis, unspecified hydronephrosis type documented in this encounter Discontinued Medications Medication Sig Discontinue Reason Start Date End Da te acidophilus-pectin, citrus 100 million cell-10 mg capsule Take 1 capsule by mouth daily Therapy completed 03/24/2022 lactulose solution 10 gram/15mL Take 30 mL (20 g total) by mouth daily as needed (conspitation) 02/12/2022 03/24/2022 docusate sodium (COLACE) 100 mg capsuleIndications:co nstipation Take 1 capsule (100 mg total) by mouth 2 (two) times a day 02/12/2022 03/24/2022 bisacodyl EC (DULCOLAX EC) 5 mg EC tabletIndications:con stipation Take 2 tablets (10 mg total) by mouth daily as needed for constipation 02/12/2022 03/24/2022 documented as of this encounter Historical Medications * This list may reflect changes made after this encounter. Medication Sig Dispense Quantity Refills Last Filled Start D ate End Date lactobacillus comb no.10 (Probiotic) 20 billion cell capsule added in this encounter Orders Outpatient Referral Count Last Ordered Date Fir st Ordered Date AMB REFERRAL TO UROLOGY 1 03/24/2022 documented in this encounter Care Teams Fumigator And Sterilizer Relationship Specialty Start Date End Date Hero Acevedo MD [address] [place] [address] DR Duncan SINGH [address] [place], [place] [id number] PCP - General Cardiovascular Disease 11/23/17 7 3 documented as of this encounter
--- OUTSIDE RECORDS SUMMARY | 2024-03-04 10:34 | XMS_ITS | Encounter Summary ---
Author Organization [facility] Address [address] [place] [address] Care Team Providers Care Tandem Operator Name Role Phone Hero Acevedo MD Primary Care Provider [phone] Encounter Details Date Type Department Care Team (Late st Contact Info) Description 06/24/2022 Telephone [facility] Nephrology at [place] [id number] [facility] [address] [place] [address] Feliberto Munoz MD [facility]0 [facility] [address] [place] [address] Social History Tobacco Use Types Packs/Day Years [...] on file Legal Sex 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 * Telephone Encounter - Nayla Bales MA - 06/24/2022 10:08 AM CDT ----- Message from Feliberto Munoz MD sent at 06/23/2022 12:33 PM CDT ----- Creatinine stable at 1.9 and potassium unremarkable at 5.1. Would continue current regimen and repeat a BMP in 3 months please documented in this encounter Plan of Treatment Not on file documented as of this encounter Visit Diagnoses Diagnosis CHIO (acute kidney injury) (HCC)- Primary Hyperkalemia Hyperpotassemia documented in this encounter Care Teams Tandem Operator Relationship Specialty Start Date End Date Hero Acevedo MD [facility] [address] Duncan SINGH [address] [place] [address] PCP - General Cardiovascular Disease 11/23/17 3 documented as of this encounter
--- OUTSIDE RECORDS SUMMARY | 2024-03-04 10:34 | XMS_ITS | Encounter Summary ---
Author Organization [facility] Address [address] [place] [address] Care Team Providers Care Stone Layout Marker Name Role Phone Hero Acevedo MD Primary Care Provider [phone] Encounter Details Date Type Department Care Team (Late st Contact Info) Description 04/27/2022 Telephone [facility] Plastic Surgery [address] [place] [address] Feliberto Munoz MD [facility] [address] [place] [address] Social History Tobacco Use Types Packs/Day Years [...] on file Legal Sex Male 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 REINFORCED STEEL PLACING 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 Gender Identity Not on file Sexual Orientation Not on file documented as of this encounter Ordered Prescriptions Prescription Sig Dispense Quantity Refills Last Filled Start Date End Date chlorthalidone 25 mg tablet Take 1 tablet (25 mg total) by mouth daily 30 tablet 11 04/29/2022 08/13/2022 documented in this encounter Miscellaneous Notes * Addendum Note - Nayla Corral MA - 04/29/2022 2:23 PM CSTAddended by: NAYLA CORRAL on: 04/29/2022 02:23 PM Modules accepted: Orders FORCED STEEL PLACING SUPERVISOR * Telephone Encounter - Nayla Corral MA - 04/29/2022 2:21 PM REINFORCED STEEL PLACING SUPERVISOR Pt was informed. He said he just got the chlorthalidone refilled last week, so does not need us to call it out for him. FORCED STEEL PLACING SUPERVISOR * Telephone Encounter - Feliberto Munoz MD - 04/28/2022 6:00 PM CST Ok dc the lokelma, start chlorthalidone 25mg once a day and repeat a bmp in one week please FORCED STEEL PLACING SUPERVISOR * Telephone Encounter - Nayla Corral MA - 04/28/2022 5:11 PM REINFORCED STEEL PLACING SUPERVISOR Pt wants to know if he can take some kind of water pill instead of the Lokelma because it is prettyexpensive . He thought you had told him he could do that a while back. FORCED STEEL PLACING SUPERVISOR * Telephone Encounter - Nayla Corral MA - 04/27/2022 3:46 PM REINFORCED STEEL PLACING SUPERVISOR Pt was informed and lab orders sent to [facility]. FORCED STEEL PLACING SUPERVISOR * Telephone Encounter - Nayla Corral MA - 04/27/2022 3:46 PM REINFORCED STEEL PLACING SUPERVISOR ----- Message from Feliberto Munoz MD sent at 04/27/2022 1:48 PM REINFORCED STEEL PLACING SUPERVISOR ----- Creatinine stable at 1.97, potassium 5.1. Would attempt sodium zirconium 5 g every other day, continue low-potassium diet and repeat a BMP in 2 weeks please FORCED STEEL PLACING SUPERVISOR * Telephone Encounter - Ronaldo Horton - 04/27/2022 12:18 PM CST Patient called stating that Dr. Munoz wanted him to check his blood pressure readings and that if itwas running high that he wanted to put him on some medicine. He stated that for the last 4 days it has been running around 159/92 with a pulse in the 60's jm FORCED STEEL PLACING SUPERVISOR documented in this encounter Plan of Treatment Not on file documented as of this encounter Procedures Procedure Name Priority Date/Time Associated Diagnosis Comments BASIC METABOLIC PANEL Routine 05/11/2022 7:07 AM REINFORCED STEEL PLACING SUPERVISOR Hyperkalemia CHIO (acute kidney injury) (CMS/HCC) (HCC) documented in this encounter Results * (ABNORMAL) Basic metabolic panel (05/11/2022 7:07 AM REINFORCED STEEL PLACING SUPERVISOR) Glucose 82 65 - 139 mg/dL [facility] Comment: ? Non-fasting reference interval BUN 23 7 - 25 mg/dL [facility] Creatinine 2.08(H) 0.70 - 1.30 mg/dL [facility] eGFR 36(L) > OR = 60 mL/min/1.7 3m2 [facility] Comment: The eGFR is based on the CKD-EPI 2020 equation. To calculate the new eGFR from a previous Creatinine or Cystatin C result, go to https://www.kidney.org/professionals/ kdoqi/gfr%5Fcalculator BUN/creat ratio 11 6 - 22 (calc) [facility] Sodium 140 135 - 146 mmol/L [facility] Potassium, pl 5.5(H) 3.5 - 5.3 mmol/L [facility] Chloride 108 98 - 110 mmol/L [facility] CO2 26 20 - 32 mmol/L [facility] Calcium 9.8 8.6 - 10.3 mg/dL [facility] Blood 05/11/2022 7:07 AM REINFORCED STEEL PLACING SUPERVISOR 05/11/2022 7:08 AM REINFORCED STEEL PLACING SUPERVISOR Narrative [facility] - 05/12/2022 2:38 AM REINFORCED STEEL PLACING SUPERVISOR FASTING:NO FASTING: NO us Feliberto Munoz MD LAB BLOOD ORDERABLES Final Re sult [facility] [address] [place] [address] documented in this encounter Visit Diagnoses Diagnosis Hyperkalemia- Primary Hyperpotassemia CHIO (acute kidney injury) (HCC) documented in this encounter Care Teams Stone Layout Marker Relationship Specialty Start Date End Date Hero Acevedo MD [address] [place] [address] DR Duncan SINGH [address] [place] [address] PCP - General Cardiovascular Disease 11/23/17 7 3 documented as of this encounter
--- OUTSIDE RECORDS SUMMARY | 2024-03-04 10:34 | XMS_ITS | Encounter Summary ---
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 Pt describing discharge as white. Advised this can be irritation from rubbing, or the catheter itself. Pt was prescribed lidocaine for topical use but had not needed it. Will start application externally, advised to not use internal or inside of penis. Pt was agreeable. Scheduled for nurse visit 03/02/22. No fever,no nausea, no vomiting and catheter is draining and working properly. [place] TELLO H DESIZING RANGE OPERATOR CHIEF documented in this encounter Plan of Treatment Not on file documented as of this encounter Visit Diagnoses Not on filedocumented in this encounter Care Teams Commercial Driver'S License Driver Relationship Specialty Start Date End Date Hero Acevedo MD [facility]0 [facility] [address] Duncan SINGH [address] [place] [address] PCP - General Cardiovascular Disease 11/23/17 3 documented as of this encounter
--- OUTSIDE RECORDS SUMMARY | 2024-03-04 10:34 | XMS_ITS | Encounter Summary ---
Author Organization [facility] Address [address] [place] [address] Care Team Providers Care Shake Table Operator Name Role Phone Hero Acevedo MD Primary Care Provider [phone] Encounter Details Date Type Department Care Team (Late st Contact Info) Description 02/23/2022 Telephone [facility] Nephrology at [place] [address] [facility] [address] [place] [address] Feliberto Munoz MD [address] [place] [address] [address] [place] [address] Social History Tobacco Use Types Packs/Day Years [...] on file Legal Sex Male 3:46 AM COMMUNICATIONS FIELD TECHNICIAN Gender Identity Not on file Sexual Orientation Not on file documented as of this encounter Miscellaneous Notes * Telephone Encounter - Nayla Bales MA - 02/23/2022 2:48 PM COMMUNICATIONS FIELD TECHNICIAN Spoke to pt. Lab orders sent to [facility]. Appt sched for next available which is 04/07/21. UNICATIONS FIELD TECHNICIAN * Telephone Encounter - Nayla Bales MA - 02/23/2022 2:39 PM COMMUNICATIONS FIELD TECHNICIAN ----- Message from Feliberto Munoz MD sent at 02/23/2022 1:06 PM COMMUNICATIONS FIELD TECHNICIAN ----- Potassium better at 5.3. Creatinine slightly increased. Also I note that for some reason his appointment with me says canceled. Please reschedule and would repeat a BMP again next week please UNICATIONS FIELD TECHNICIAN documented in this encounter Plan of Treatment Not on file documented as of this encounter Procedures Procedure Name Priority Date/Time Associated Diagnosis Comments BASIC METABOLIC PANEL Routine 03/02/2022 7:33 AM COMMUNICATIONS FIELD TECHNICIAN Hydronephrosis, unspecified hydronephrosis type documented in this encounter Results * (ABNORMAL) Basic metabolic panel (03/02/2022 7:33 AM COMMUNICATIONS FIELD TECHNICIAN) Pathologist [facility] Glucose 72 65 - 99 mg/dL [facility] Comment: ? Fasting reference interval BUN 26(H) 7 - 25 mg/dL [facility] Creatinine 2.31(H) 0.70 - 1.30 mg/dL [facility] eGFR 32(L) > OR = 60 mL/min/1.7 3m2 [facility] Comment: The eGFR is based on the CKD-EPI 2020 equation. To calculate the new eGFR from a previous Creatinine or Cystatin C result, go to https://www.kidney.org/professionals/ kdoqi/gfr%5Fcalculator BUN/creat ratio 11 6 - 22 (calc) [facility] Sodium 143 135 - 146 mmol/L [facility] Potassium, pl 4.3 3.5 - 5.3 mmol/L [facility] Chloride 110 98 - 110 mmol/L [facility] CO2 28 20 - 32 mmol/L [facility] Calcium 9.1 8.6 - 10.3 mg/dL [facility] Blood 03/02/2022 7:33 AM COMMUNICATIONS FIELD TECHNICIAN 03/02/2022 7:34 AM COMMUNICATIONS FIELD TECHNICIAN Narrative [facility] - 03/03/2022 2:58 AM COMMUNICATIONS FIELD TECHNICIAN FASTING:YES FASTING: YES us Feliberto Munoz MD LAB BLOOD ORDERABLES Final Re sult [facility] [address] [place] [address] documented in this encounter Visit Diagnoses Diagnosis Hydronephrosis, unspecified hydronephrosis type- Primary Hyperkalemia Hyperpotassemia documented in this encounter Care Teams Shake Table Operator Relationship Specialty Start Date End Date Hero Acevedo MD [facility] [address] Duncan SINGH [address] [place] [address] PCP - General Cardiovascular Disease 11/23/17 3 documented as of this encounter
--- OUTSIDE RECORDS SUMMARY | 2024-03-04 10:34 | XMS_ITS | Encounter Summary ---
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 * Telephone Encounter - Ronaldo Horton - 09/07/2022 12:08 PM CDT Patient called and was wondering if you could refill his Chlorthalidone to the 50 mg so his insurance can cover it. They wont pay for him to get the 25mg refilled for it being too soon to [place]er [place]. jm documented in this encounter Plan of Treatment Not on file documented as of this encounter Visit Diagnoses Not on filedocumented in this encounter Discontinued Medications Medication Sig Discontinue Reason Start Date End Da te chlorthalidone 25 mg tablet Take 2 tablets (50 mg total) by mouth daily Reorder 09/04/2022 09/07/2022 documented as of this encounter Care Teams Buyer Intern Relationship Specialty Start Date End Date Hero Acevedo MD [facility] [address] Duncan SINGH [address] [place] [address] PCP - General Cardiovascular Disease 11/23/17 3 documented as of this encounter
--- OUTSIDE RECORDS SUMMARY | 2024-03-04 10:34 | XMS_ITS | Encounter Summary ---
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 His dosage was changed from 25-50mg. He would like it sent to [facility] in [place], [place] and [facility]. documented in this encounter Plan of Treatment Not on file documented as of this encounter Visit Diagnoses Not on filedocumented in this encounter Care Teams Thermal Spray Operator Relationship Specialty Start Date End Date Hero Acevedo MD [facility]0 [facility] [address] Duncan SINGH [address] [place] [address] PCP - General Cardiovascular Disease 11/23/17 3 documented as of this encounter
--- OUTSIDE RECORDS SUMMARY | 2024-03-04 10:34 | XMS_ITS | Encounter Summary ---
Author Organization [facility] Address [address] [facility] [address] [place] [address] Care Team Providers Care Senior Interaction Designer Name Role Phone Hero Acevedo MD Primary Care Provider [phone] Encounter Details Date Type Department Care Team (Late st Contact Info) Description 07/29/2022 Telephone [facility] Gastroenterology at [address] [place] [address] Feliberto Munoz MD [address] [place] [address] [address] [place] [address] Social History Tobacco Use Types Packs/Day Years [...] on file 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 refills. thanks * Telephone Encounter - Sandra Cee - 07/29/2022 12:36 PM CDT Pt called and said that Dr. Cristina increased the dose of his doxazosin to 4mg, nightly but insurance says that we need a new script with the correct dosage sent to [facility] in [place]. They wouldn't fill it because it said it was too soon unless a whole new script with the new dose was called in. documented in this encounter Plan of Treatment Not on file documented as of this encounter Visit Diagnoses Not on filedocumented in this encounter Discontinued Medications Medication Sig Discontinue Reason Start Date End Da te doxazosin (CARDURA) 4 mg tablet Take 1 tablet (4 mg total) by mouth nightly Reorder 07/20/2022 07/29/2022 documented as of this encounter Care Teams Senior Interaction Designer Relationship Specialty Start Date End Date Hero Acevedo MD [address] [place] [address] DR Song [address] [address] PCP - General Cardiovascular Disease 11/23/17 3 documented as of this encounter
--- OUTSIDE RECORDS SUMMARY | 2024-03-04 10:34 | XMS_ITS | Encounter Summary ---
Author Organization [facility] Address [address] [place] [address] Care Team Providers Care Hemstitching Machine Operator Name Role Phone Hero Acevedo MD Primary Care Provider [phone] Encounter Details Date Type Department Care Team (Latest Contact Info) Description 04/06/2022 4:27 PM MONITOR CAR OPERATOR - 04/06/2022 11:59 PM MONITOR CAR OPERATOR Hospital Encounter [address] [address] Hydronephrosis, unspecified hydronephrosis type Discharge Disposition: Discharge to home or self [...] on file Legal Sex Male 3:46 AM MONITOR CAR OPERATOR Gender Identity Not on file Sexual [...] total) by mouth daily 30 packet 02/12/2022 amoxicillin-clavul anate (AUGMENTIN) 875-125 mg per tablet Take 1 tablet by mouth 2 (two) times a day for 5 days 10 tablet 04/05/2022 3 lidocaine (LMX) 4 % cream Apply 2.5 [...] Name Priority Date/Time Associated Diagnosis Comments EGFR Routine 04/06/2022 4:27 PM MONITOR CAR OPERATOR Hydronephrosis, unspecified hydronephrosis type BASIC METABOLIC PANEL Routine 04/06/2022 4:27 PM MONITOR CAR OPERATOR Hydronephrosis, unspecified hydronephrosis type documented in this encounter Results * eGFR (04/06/2022 4:27 PM MONITOR CAR OPERATOR) Pathologist [facility] eGFR 36 mL/min/1. 73 m2 [facility] Comment: Interpretive Data Reference Interval Normal ?>/= [...] of Race in Diagnosing Kidney Disease, JASN 202). The CKD-EPI equation should not be used for patients with unstable renal function and has not been validated in children and those over 70. Current interpretive data was last reviewed 2021. Blood 04/06/2022 4:27 PM MONITOR CAR OPERATOR 04/06/2022 8:50 PM MONITOR CAR OPERATOR us Dudley Cárdenas MD LAB BLOOD ORDERABLES Final Resul t Performing Organization Address City/[facility]/ZIP Co de Phone Number [facility] [address] [address] [place] [address] * (ABNORMAL) Basic metabolic panel (04/06/2022 4:27 PM MONITOR CAR OPERATOR) Sodium 139 135 - 145 mmol/L [facility] [...] classification and Diagnosis of Diabetes Diabetes Care 2021; 46: S19-S40. Current interpretive data was last revised 2022. Calcium 9.8 8.5 - 10.3 mg/dL [facility] Blood 04/06/2022 4:27 PM MONITOR CAR OPERATOR 04/06/2022 8:45 PM MONITOR CAR OPERATOR Dudley Cárdenas MD LAB BLOOD ORDERABLES Final Resul t Performing Organization Address [facility]/ZIP Co de Phone Number [facility] [address] [place] [address] documented in this encounter Visit Diagnoses Diagnosis Hydronephrosis, unspecified hydronephrosis type documented in this encounter Care Teams Hemstitching Machine Operator Relationship Specialty Start Date End Date Hero Acevedo MD [address] [place] [address] [place] [address] PCP - General Cardiovascular Disease 11/23/17 3 documented as of this encounter
--- OUTSIDE RECORDS SUMMARY | 2024-03-04 10:34 | XMS_ITS | Encounter Summary ---
Author Organization [facility] Address [address] [place] [address] Care Team Providers Care Pediatric Np Name Role Phone Hero Acevedo MD Primary Care Provider [phone] Encounter Details Date Type Department Care Team (Late st Contact Info) Description 05/19/2022 Telephone [facility] Nephrology at [place] [id number] [facility] [address] [place] [address] Feliberto Munoz MD [facility] [address] [place] [address] Social History Tobacco Use Types Packs/Day Years [...] on file Legal Sex Male 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 Patient voiced no concerns. Lab order entered for [facility] lab. TLE FIXER * Telephone Encounter - Kaykay Andrea MA - 05/19/2022 2:58 PM CST ----- Message from Feliberto Munoz MD sent at 05/19/2022 1:23 PM SHUTTLE FIXER ----- Potassium upper limits of normal which is fine. Would continue current regimen and repeat a BMP in 1 month please TLE FIXER documented in this encounter Plan of Treatment Not on file documented as of this encounter Procedures Procedure Name Priority Date/Time Associated Diagnosis Comments BASIC METABOLIC PANEL Routine 06/22/2022 12:30 PM CDT CHIO (acute kidney injury) (CMS/HCC) (HCC) Hyperkalemia documented in this encounter Results * (ABNORMAL) Basic metabolic panel (06/22/2022 12:30 PM CDT) Glucose 70 65 - 99 mg/dL [facility] Comment: ? Fasting reference interval BUN 19 7 - 25 mg/dL [facility] Creatinine 1.91(H) 0.70 - 1.30 mg/dL [facility] eGFR 40(L) > OR = 60 mL/min/1.7 3m2 [facility] Comment: The eGFR is based on the CKD-EPI 2020 equation. To calculate the new eGFR from a previous Creatinine or Cystatin C result, go to https://www.kidney.org/professionals/ kdoqi/gfr%5Fcalculator BUN/creat ratio 10 6 - 22 (calc) [facility] Sodium 136 135 - 146 mmol/L [facility] Potassium, pl 5.1 3.5 - 5.3 mmol/L [facility] Chloride 107 98 - 110 mmol/L [facility] CO2 23 20 - 32 mmol/L [facility] Calcium 9.1 8.6 - 10.3 mg/dL [facility] Blood 06/22/2022 12:3 0 PM CDT 06/22/2022 12:33 PM CDT us Feliberto Munoz MD LAB BLOOD ORDERABLES Final Re sult [facility] [address] [place] [address] documented in this encounter Visit Diagnoses Diagnosis CHIO (acute kidney injury) (HCC)- Primary Hyperkalemia Hyperpotassemia documented in this encounter Care Teams Pediatric Np Relationship Specialty Start Date End Date Hero Acevedo MD [address] [place] [address] DR Duncan SINGH [address] [place] [address] PCP - General Cardiovascular Disease 11/23/17 3 documented as of this encounter
--- OUTSIDE RECORDS SUMMARY | 2024-03-04 10:34 | XMS_ITS | Encounter Summary ---
Author Organization [facility] Address [address] [facility] [address] [place] [address] Phone Care Team Providers Care Rn Tele Name Role Phone Hero Acevedo MD Primary Care Provider [phone] Encounter Details Date Type Department Care Team (Late st Contact Info) Description 03/11/2022 Telephone [facility] Surgery [address] [facility] [address] [place] [address] Haleigh Finley RMA Social History [...] on file Legal Sex Male 3:46 AM BRACELET MAKER NOVELTY Gender Identity Not on file Sexual Orientation Not on file documented as of this encounter Miscellaneous Notes * Telephone Encounter - Haleigh Finley RMA - 03/11/2022 11:33 AM CST Pt reports substance is in his tube (not his Bowel Movements )but still draining. Pt will send a picture of tube via my chart. Denies any pain just minor pressure at penis an inch away from the tip that started 03/04/22 but has subsided. [place] TELLO ELET MAKER NOVELTY * Telephone Encounter - Haleigh Finley RMA - 03/11/2022 11:33 AM CST ----- Message from Dudley Cárdenas MD sent at 03/10/2022 7:29 PM BRACELET MAKER NOVELTY ----- Regarding: RE: Please advise That would be a question for his PCP. I haven't seen him before and Raquel saw him for urinary retentino. Thanks ----- Message ----- From: Vandana Betancur Sent: 03/10/2022 4:33 PM BRACELET MAKER NOVELTY To: OMER Ortega, Dudley Cárdenas MD Subject: Please advise Pt called in earlier and stated that he has a white substance that's in his poop? Please advise. Thanks. ELET MAKER NOVELTY documented in this encounter Plan of Treatment Not on file documented as of this encounter Visit Diagnoses Not on filedocumented in this encounter Care Teams Rn Tele Relationship Specialty Start Date End Date Hero Acevedo MD [address] [place] [address] DR Duncan SINGH [address] [place] [id number] PCP - General Cardiovascular Disease 11/23/17 3 documented as of this encounter
--- OUTSIDE RECORDS SUMMARY | 2024-03-04 10:34 | XMS_ITS | Encounter Summary ---
Author Organization [facility] Address [address] [facility] [address] [place] [address] Care Team Providers Care Facilities Manager Name Role Phone Hero Acevedo MD Primary Care Provider [phone] Reason for Visit * Reason Comments CHIO (acute kidney injury) Encounter Details Date Type Department Care Team (Late st Contact Info) Description 04/07/2022 3:45 PM SALESPERSON CORSETS Office Visit [facility] Nephrology at [address] [place] [address] Feliberto Munoz MD [address] [place] [address] [address] [place] [address] CHIO (acute kidney injury) (CMS/HCC) (HCC) (Primary Dx); Hyperkalemia; Hydronephrosis, unspecified hydronephrosis type; Acute bilateral obstructive uropathy Social History Tobacco Use Types Packs/Day [...] on file Legal Sex Male 3:46 AM SALESPERSON CORSETS Gender Identity Not on file Sexual Orientation Not on file documented as of this encounter Last Filed Vital Signs Vital Sign Reading Time Taken Comments Blood Pressure 150/95 04/07/2022 3:40 PM SALESPERSON CORSETS Pulse 64 04/07/2022 3:40 PM SALESPERSON CORSETS Temperature 37.6 ??C (99.6 ??F) 04/07/2022 3:40 PM CS T Respiratory Rate - - Oxygen Saturation - - Inhaled Oxygen Concentration - - Weight 90.7 kg (200 lb) 04/07/2022 3:40 PM SALESPERSON CORSETS Height 185.4 cm (6' 0.99 ) 04/07/2022 3:40 PM CS T Body Mass Index 26.39 04/07/2022 3:40 PM SALESPERSON CORSETS documented in this encounter Progress Notes * Feliberto Munoz MD - 04/07/2022 3:45 PM CST Images from the original note were not included. Subjective/Objective Patient ID: Jean-Pierre Sofia is a 56 y.o. male. Chief Complaint CHIO (acute kidney injury) HPI This is a patient who was initially scheduled to see me in the office regarding increasing serum creatinine and hyperkalemia. I had ordered repeat labs and a renal ultrasound prior to her visit but for some reason he was [...] to recent labs had been unremarkable. Now voiding without difficulty. Serum creatinine down to 2.07 and last potassium of 4.8. Review of Systems Constitutional: Negative for appetite [...] or shortness of breath 3 each 3 amoxicillin-clavulanate (AUGMENTIN) 875-125 mg per tablet Take 1 tablet by mouth 2 (two) times a day for 5 days 10 tablet 0 cholecalciferol (VITAMIN D-3) 25 mcg (1,000 unit) tablet Take 4,000 Units by mouth daily lactobacillus comb no.10 (Probiotic) 20 billion cell capsule PARoxetine (PAXIL) 30 mg tablet Take 1 tablet (30 mg total) by mouth every morning. 30 tablet 3 polycarbophil (FIBERCON) 625 mg tablet Take 625 mg by mouth daily polyethylene glycol (MIRALAX) 17 gram packet Take 1 packet (17 g total) by mouth daily 30 packet 0 sodium zirconium cyclosilicate (Lokelma) 5 gram packet Take 1 packet (5 g total) by mouth daily 30 packet PRN tamsulosin (FLOMAX) 0.4 mg extended release capsule TAKE 1 CAPSULE(0.4 MG) BY MOUTH EVERY NIGHT 90 capsule 3 turmeric (CURCUMIN MISC) UNABLE TO FIND Take [...] CANDIDIASIS. DO NOT SWALLOW 60 each 2 No current facility-administered medications for this visit. Allergies Allergen Reactions Tetracycline Swelling Glutathione (Bulk) Unknown Prozac [Fluoxetine] Unknown Sulfa (Sulfonamide Antibiotics) Diarrhea Vitals BP 150/95 (BP Location: Left arm, Patient Position: Sitting) Pulse 64 Temp 37.6 ??C (99.6 ??F) (Skin) Ht 185.4 cm (6' 0.99 ) Wt 90.7 kg (200 lb) BMI 26.39 kg/m?? Physical Exam Constitutional: Appears well-developed and [...] Diagnoses and all orders for this visit: CHIO (acute kidney injury) (CMS/HCC) (HCC) (N17.9) (Primary) - Basic metabolic panel; Future Hyperkalemia (E87.5) Hydronephrosis, unspecified hydronephrosis type (N13.30) Acute bilateral obstructive uropathy (N13.9) Acute kidney failure and hyperkalemia in the setting of obstructive uropathy. Massive urine output following Roe catheter placement. Serum creatinine has improved somewhat and hopefully will continue to do so. Last potassium unremarkable but given his history of significant hyperkalemia will continue with sodium zirconium for now and repeat labs and if remaining unremarkable will plan to discontinue and monitor. His blood pressure is elevated in the office today. He does not have a history ofhypertension. He does have a blood pressure monitor at home and will begin to monitor routinely andnotify the office if he is remaining above target. SPERSON CORSETS documented in this encounter Plan of Treatment Not on file documented as of this encounter Procedures Procedure Name Priority Date/Time Associated Diagnosis Comments BASIC METABOLIC PANEL Routine 04/24/2022 7:18 AM SALESPERSON CORSETS CHIO (acute kidney injury) (CMS/HCC) (HCC) documented in this encounter Results * (ABNORMAL) Basic metabolic panel (04/24/2022 7:18 AM SALESPERSON CORSETS) Glucose 64(L) 65 - 99 mg/dL [facility] Comment: ? Fasting reference interval BUN 9 7 - 25 mg/dL [facility] Creatinine 1.97(H) 0.70 - 1.30 mg/dL [facility] eGFR 39(L) > OR = 60 mL/min/1.7 3m2 [facility] Comment: The eGFR is based on the CKD-EPI 2020 equation. To calculate the new eGFR from a previous Creatinine or Cystatin C result, go to https://www.kidney.org/professionals/ kdoqi/gfr%5Fcalculator BUN/creat ratio 5(L) 6 - 22 (calc) [facility] Sodium 143 135 - 146 mmol/L [facility] Comment: Verified by repeat analysis. Potassium, pl 5.1 3.5 - 5.3 mmol/L [facility] Chloride 113(H) 98 - 110 mmol/L [facility] Comment: Verified by repeat analysis. CO2 27 20 - 32 mmol/L [facility] Calcium 9.3 8.6 - 10.3 mg/dL [facility] Blood 04/24/2022 7:18 AM SALESPERSON CORSETS 04/24/2022 7:19 AM SALESPERSON CORSETS us Feliberto Munoz MD LAB BLOOD ORDERABLES Final Re sult [facility] [address] [place] [address] documented in this encounter Visit Diagnoses Diagnosis CHIO (acute kidney injury) (HCC)- Primary Hyperkalemia Hyperpotassemia Hydronephrosis, unspecified hydronephrosis type Acute bilateral obstructive uropathy Urinary obstruction, unspecified documented in this encounter Discontinued Medications Medication Sig Discontinue Reason Start Date End Da te lidocaine (LMX) 4 % cream Apply 2.5 g (1 application total) topically 4 (four) times a day as needed for pain 02/12/2022 04/07/2022 documented as of this encounter Care Teams Facilities Manager Relationship Specialty Start Date End Date Hero Acevedo MD [address] [place] [address] DR Duncan SINGH [address] [place], [place] [id number] PCP - General Cardiovascular Disease 11/23/17 3 documented as of this encounter
--- OUTSIDE RECORDS SUMMARY | 2024-03-04 10:34 | XMS_ITS | Encounter Summary ---
Author Organization [facility] Address [address] [facility] [address] [place] [address] Phone Care Team Providers Care Parachute Accessories Attacher Name Role Phone Hero Acevedo MD Primary Care Provider [phone] Encounter Details Date Type Department Care Team (Late st Contact Info) Description 04/06/2022 Telephone [facility] Surgery [address] [facility] [address] [place] [address] Vandana Betancur Social History Tobacco Use Types Packs/Day Years [...] on file Legal Sex Male 3:46 AM 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 I also asked him about the [place] paperwork and he stated that he wanted our office to fill it out instead of the other office and to contact Ana Cleveland with [employer], which he stated that her name shouldbe on the paperwork. He could not verify as to why he needs to have this filled out. ENTRY OPERATOR * Telephone Encounter - Vandana Betancur - 04/06/2022 8:41 AM CST ----- Message from Dudley Cárdenas MD sent at 04/05/2022 11:57 AM KEY ENTRY OPERATOR ----- Vandana, Please let him know his urine culture was positive and I sent an antibiotic (augmentin) to his pharmacy. Thanks, PK ENTRY OPERATOR documented in this encounter Plan of Treatment Not on file documented as of this encounter Visit Diagnoses Not on filedocumented in this encounter Care Teams Parachute Accessories Attacher Relationship Specialty Start Date End Date Hero Acevedo MD [facility] DR Duncan SINGH [address] [place] [address] PCP - General Cardiovascular Disease 11/23/17 3 documented as of this encounter
--- OUTSIDE RECORDS SUMMARY | 2024-03-04 10:34 | XMS_ITS | Encounter Summary ---
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 * Telephone Encounter - Kaykay Andrea MA - 08/12/2022 3:12 PM CDT I believe he is on doxazosin 4mg at bedtime. Would increase to 6mg and monitor bp please * Telephone Encounter - Kaykay Andrea MA - 08/12/2022 3:12 PM CDT ----- Message from Feliberto Munoz MD sent at 08/12/2022 3:11 PM CDT ----- Regarding: FW: BP Contact: ----- Message ----- From: Kaykay Andrea MA Sent: 08/12/2022 7:49 AM CDT To: Feliberto Munoz MD Subject: FW: BP ----- Message ----- From: Jean-Pierre Sofia Sent: 08/12/2022 7:09 AM CDT To: [facility] Subject: BP Disregard the part of the messege I sent you last night about the inflammation. The swelling is mild at best. Don't disregard the remainder of the message . However, when I took my BP this morning itwas 150/100 documented in this encounter Plan of Treatment Not on file documented as of this encounter Visit Diagnoses Not on filedocumented in this encounter Discontinued Medications Medication Sig Discontinue Reason Start Date End Da te doxazosin (CARDURA) 4 mg tablet Take 1 tablet (4 mg total) by mouth nightly 07/29/2022 08/12/2022 documented as of this encounter Care Teams City Jailer Relationship Specialty Start Date End Date Hero Acevedo MD [facility] [address] Duncan SINGH [address] [place] [address] PCP - General Cardiovascular Disease 11/23/17 3 documented as of this encounter
--- OUTSIDE RECORDS SUMMARY | 2024-03-04 10:34 | XMS_ITS | Encounter Summary ---
Author Organization [facility] Address [address] [facility] [address] [place] [address] Care Team Providers Care Plumbing Mechanic Name Role Phone Hero Acevedo MD Primary Care Provider [phone] Encounter Details Date Type Department Care Team (Late st Contact Info) Description 04/28/2022 Telephone [facility] Nephrology at [place] [address] [facility] [address] [place] [address] Feliberto Munoz MD [facility] [address] [place] [address] Social History Tobacco Use Types Packs/Day Years [...] on file Legal Sex Male 3:46 AM HYDRAMATIC MECHANIC Gender Identity Not on file Sexual Orientation Not on file documented as of this encounter Miscellaneous Notes * Telephone Encounter - Nayla Bales MA - 04/28/2022 5:13 PM HYDRAMATIC MECHANIC Pt was informed. AMATIC MECHANIC * Telephone Encounter - Feliberto Munoz MD - 04/28/2022 3:37 PM CST Ok, monitor bp off the supplement and report back AMATIC MECHANIC * Telephone Encounter - Nayla Bales MA - 04/28/2022 10:13 AM HYDRAMATIC MECHANIC ----- Message from Jean-Pierre Sofia sent at 04/27/2022 8:37 PM HYDRAMATIC MECHANIC ----- Regarding: BP & Medicine Contact: Pending Sale To [facility] Dr Munoz, When I saw you on 04/07/22 you ask me to monitor my BP for a week. You stated if if was still high, contact you and you might give me something for it. I've attached some BP readings over the past 2 weeks. I would like to point out I started taking a supplement called [id number] the day I saw you. I believe the supplement might have ran my BP up. I stopped taking it about 2-4 days ago. I've also attached info concerning the supplement. Thank you, Jean-Pierre Sofia AMATIC MECHANIC documented in this encounter Plan of Treatment Not on file documented as of this encounter Visit Diagnoses Not on filedocumented in this encounter Care Teams Plumbing Mechanic Relationship Specialty Start Date End Date Hero Acevedo MD [facility]0 [facility] [address] Duncan SINGH [address] [place] [address] PCP - General Cardiovascular Disease 11/23/17 7 3 documented as of this encounter
--- OUTSIDE RECORDS SUMMARY | 2024-03-04 10:34 | XMS_ITS | Encounter Summary ---
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 No need for intermittent leave for catheter changes. Will f/u with us if needed. Surinderluis TELLO D RESEARCH ASSISTANT * Telephone Encounter - Haleigh Finley RMA - 02/23/2022 12:01 PM CST Spoke to pt extensively about his FMLA. Pt is needing a return to work letter which was provided but employer is requiring a physician statement. Pt was advised that his cathter might not warrant his FMLA but it would be routed to the departmentand turn around time is 7 business days. PCP signed physician form but noted urology needed to release. Pt advised to obtain clearance from PCP as instructed from hospital at discharge and to provide PCP office our return to work letter as this might be helpful in expediting his request. Pt needed a smaller leg bag and one was provided facilitating pts return to work. [place] OMER D RESEARCH ASSISTANT documented in this encounter Plan of Treatment Not on file documented as of this encounter Visit Diagnoses Not on filedocumented in this encounter Care Teams Computer Console Operator Relationship Specialty Start Date End Date Hero Acevedo MD [address] [place] [address] DR Duncan SINGH [address] [place] [address] PCP - General Cardiovascular Disease 11/23/17 3 documented as of this encounter
--- OUTSIDE RECORDS SUMMARY | 2024-03-04 10:34 | XMS_ITS | Encounter Summary ---
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 Gender Identity Not on file Sexual Orientation Not on file documented as of this encounter Miscellaneous Notes * Telephone Encounter - Veda Morel - 02/20/2022 10:32 AM CST Pt calling rekathleen Hernandez to please gie him a call back today regarding FMLA paperwork today [phone] TENANCE CONTROLLER documented in this encounter Plan of Treatment Not on file documented as of this encounter Visit Diagnoses Not on filedocumented in this encounter Care Teams Casino Cage Supervisor Relationship Specialty Start Date End Date Hero Acevedo MD [facility]0 [facility] DR Duncan SINGH [address] [place] [address] PCP - General Cardiovascular Disease 11/23/17 3 documented as of this encounter
--- OUTSIDE RECORDS SUMMARY | 2024-03-04 10:34 | XMS_ITS | Encounter Summary ---
Author Organization [facility] Address [address] [place] [address] Care Team Providers Care Courtesy Clerk Name Role Phone Hero Acevedo MD Primary Care Provider [phone] Reason for Referral * Diagnostic Imaging (Routine) - Closed Specialty Diagnoses / Procedures Referred By Margie norton Referred To Contact Diagnoses Hydronephrosis, unspecified hydronephrosis type Procedures US Kidney Complete Dudley Cárdenas MD [address] [place] [address] Phone: tel: fax: [address] [address] Referral ID Status Reason Start Date Expiration Date Visits Re quested Visits Authorized [id number] Closed 03/24/2022 04/23/2023 1 1 HIKER Reason for Visit * Diagnostic Imaging (Routine) - Closed Specialty Diagnoses / Procedures Referred By Margie norton Referred To Contact Diagnoses Hydronephrosis, unspecified hydronephrosis type Procedures US Kidney Complete Dudley Cárdenas MD [address] [place] [address] Phone: tel: fax: [address] [address] Referral ID Status Reason Start Date Expiration Date Visits Re quested Visits Authorized [id number] Closed 03/24/2022 04/23/2023 1 1 Encounter Details Date Type Department Care Team (Latest Contact Info) Description 04/20/2022 12:41 PM BILL HIKER - 04/20/2022 11:59 PM BILL HIKER Hospital Encounter [facility] Ultrasound [address] [place] [address] Hydronephrosis, unspecified hydronephrosis type Discharge Disposition: Discharge [...] on file Legal Sex Male 3:46 AM BILL HIKER Gender Identity Not on file Sexual Orientation Not on file documented as of this encounter Medications at Time of Discharge albuterol HFA (ProAir HFA) 90 mcg/actuation inhalerIndications: Moderate persistent asthma without complication Inhale 2 puffs every 4 (four) hours as needed for wheezing or shortness of breath 3 each 3 01/01/2022 cholecalciferol (VITAMIN D-3) 25 mcg (1,000 unit) tablet Take 4 tablets (4,000 Units total) by mouth daily lactobacillus comb no.10 (Probiotic) 20 billion cell capsule PARoxetine (PAXIL) 30 mg tabletIndications:D epression, unspecified depression type Take 1 tablet (30 mg total) by mouth every morning. 30 tablet 3 11/29/2017 polycarbophil (FIBERCON) 625 mg tablet Take 1 tablet (625 mg total) by mouth daily polyethylene glycol (MIRALAX) 17 gram packetIndications:c onstipation Take 1 packet (17 g total) by mouth daily 30 packet 02/12/2022 sodium zirconium cyclosilicate (Lokelma) 5 gram packetIndications:h yperkalemia Take 1 packet (5 g total) by mouth daily 30 packet 02/19/2022 3 tamsulosin (FLOMAX) 0.4 mg extended release capsule TAKE 1 CAPSULE(0.4 MG) BY MOUTH EVERY NIGHT 90 capsule 3 03/13/2022 3 turmeric (CURCUMIN MISC) 4 UNABLE TO FIND Take 1 each by mouth daily Med Name: tumeric/cucumin 4 venlafaxine XR (EFFEXOR-XR) 37.5 mg 24 hr capsuleIndications: Depression, unspecified depression type Take 1 capsule (37.5 [...] Procedure Name Priority Date/Time Associated Diagnosis Comments US KIDNEY COMPLETE Schedule Routine, Read Routine (OP Routine) 04/20/2022 1:28 PM BILL HIKER Hydronephrosis, unspecified hydronephrosis type documented in this encounter Results * US Kidney Complete (04/20/2022 1:28 PM BILL HIKER) Anatomical Region Laterality Modality Kidney N/A Ultrasound 04/20/2022 10:0 7 PM BILL HIKER Narrative 04/20/2022 10:09 PM BILL HIKER EXAM DESCRIPTION: ?? US KIDNEY COMPLETE REASON [...] Electronically signed by ??Bebo Toribio M.D. CH: D: ??04/20/2022 10:09 PM T: ??04/20/2022 10:09 PM Report ID: [id number] Reading Location: ??[id number] Procedure Note Bebo Toribio Jr., MD - [...] Electronically signed by Bebo Toribio M.D. CH: KATHRINE Report ID: [id number] Reading Location: [place] [address] Dudley Cárdenas MD [facility] PROCED[facility] Final Result documented in this encounter Visit Diagnoses Diagnosis Hydronephrosis, unspecified hydronephrosis type documented in this encounter Care Teams Courtesy Clerk Relationship Specialty Start Date End Date Hero Acevedo MD [address] [place] [address] DR Duncan SINGH [address] [place] [address] PCP - General Cardiovascular Disease 11/23/17 7 3 documented as of this encounter
--- OUTSIDE RECORDS SUMMARY | 2024-03-04 10:34 | XMS_ITS | Encounter Summary ---
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 Concerning the [place] paperwrok. Pt states he is able to go back to work, and ask for Dr. Acevedo to make changes on the form. I stated I would call Ms Cristofer High Pressure Cleaner to get the correct information so the form is completed. Pt. Was fine with that. RAL LEDGER BOOKKEEPER * Telephone Encounter - Mary Saenz RMA - 02/20/2022 1:08 PM CST Spoke to pt. Concerning [place] paperwork. Pt. Stated he can go back to work now. Pt. Needs changes toto state that on the [place] paperwork and we need to refax back changes. RAL LEDGER BOOKKEEPER documented in this encounter Plan of Treatment Not on file documented as of this encounter Visit Diagnoses Not on filedocumented in this encounter Care Teams Hand Zipper Trimmer Relationship Specialty Start Date End Date Hero Acevedo MD [address] [place] [address] DR Duncan SINGH [address] [place] [address] PCP - General Cardiovascular Disease 11/23/17 3 documented as of this encounter
--- OUTSIDE RECORDS SUMMARY | 2024-03-04 10:34 | XMS_ITS | Encounter Summary ---
Author Organization [facility] Address [address] [facility] [address] [place] [address] Phone Care Team Providers Care Metal Flooring Installer Name Role Phone Hero Acevedo MD Primary Care Provider [phone] Encounter Details Date Type Department Care Team (Latest Contact Info) Description 04/30/2022 1:00 PM WORLD DESIGNER Office Visit [facility] Surgery [address] [place] [address] [place] [address] Dudley Cárdenas MD [address] [place] [address] Hydronephrosis, unspecified hydronephrosis type (Primary [...] on file Legal Sex Male 3:46 AM WORLD DESIGNER Gender Identity Not on file Sexual Orientation Not on file documented as of this encounter Progress Notes * Dudley Cárdenas MD - 04/30/2022 1:00 PM CST Images from the original note were not included. UROLOGY CLINIC FOLLOW UP NOTE Patient Name: Jean-Pierre Sofia Referred by: Hero Acevedo MD PCP: Hero Acevedo MD Date of Visit: 04/30/2022 Chief Complaint: Follow up of hydronephrosis, urinary retention and gross hematuria HPI: Jean-Pierre Sofia is a 56 y.o. male who is presenting for follow up of urinary retention. Patient was seen on 02/09/22 during admission for hyperkalemia and acute on chronic kidney injury. He has a history of gross hematuria in the 80's or 90's evaluated with cystoscopy. Belt Splicer was 2.6 and he was found to have hydronephrosis on renal artery doppler on 02/02/22. Dominguez catheter was placed and racing mechanic improved to williams of 1.7 but has gone up to 2.2-2.5. He had hematuria after catheter was placed and CT a/p wo contrast on 02/09/22 demonstrated thickened bladder with dominguez in place and similar bilateral hydroureteronephrosis. Last PSA was 0.96 on 11/25/21. He was discharged on 02/12/22. On 03/24/22 he presented for cystoscopy. He had not had a voiding trial. He was on tamsulosin. No further hematuria or catheter discomfort. Reported having LUTS for approximately 2 years prior to catheter placement. He was interested in voiding trial. He did not desire to learn CIC. Cystoscopy demonstrated an enlarged prostate with a median valve. Dominguez was removed. Today on 04/30/22 he presents for follow up. He has seen a PAE specialist at the [facility] in the interim. Creatinine was 1.97 on 04/24/22. US on 04/20/21 demonstrated moderate bilateral hydronephrosis. PVR is 750 ml. IPSS is 9 with QOL of 0. Allergies as of 04/30/2022 - Reviewed 04/07/2022 Allergen Reaction Noted Tetracycline Swelling 05/28/2021 Glutathione (bulk) Unknown 11/29/2017 Prozac [fluoxetine] Unknown 11/29/2017 Sulfa (sulfonamide antibiotics) Diarrhea 02/04/2022 Current Outpatient Medications: albuterol HFA (ProAir HFA) 90 mcg/actuation inhaler, Inhale 2 puffs every 4 (four) hours as needed for wheezing or shortness of breath, Disp: 3 each, Rfl: 3 chlorthalidone 25 mg tablet, Take 1 tablet (25 mg total) by mouth daily, Disp: 30 tablet, Rfl: 11 cholecalciferol (VITAMIN D-3) 25 mcg (1,000 unit) tablet, Take 4,000 Units by mouth daily, Disp: , Rfl: lactobacillus [...] mouth daily, Disp: 30 packet, Rfl: 0 sodium zirconium [...] Anxiety Arthritis 1977 Asthma Autoimmune disease (CMS/HCC) ([facility]) 1999 Cancer (CMS/HCC) ([facility]) 2002 Chronic fatigue Chronic kidney disease Apr 2021 Constipation Depression OCD (obsessive compulsive disorder) Sleep apnea 2003 Thyroid disease 2000 Tuberculosis 1974 Past Surgical [...] 11/25/2021 PSA 0.7 08/06/2020 PSA 0.7 12/24/2018 US Kidney Complete EXAM DESCRIPTION: US KIDNEY COMPLETE REASON FOR STUDY: For hydronephrosis and kidney stone follow-up. TECHNIQUE: Ultrasound of the kidneys and urinary bladder was performed with grayscale imaging. COMPARISON: CT abdomen and pelvis 02/09/2022. FINDINGS: RIGHT KIDNEY: The right kidney measures 11.1 cm in length. There is moderate hydronephrosis. There is normal cortical thickness and increased echogenicity. LEFT KIDNEY: The left kidney measures 10.9 cm in length. There is moderate hydronephrosis. There is normal cortical thickness and increased echogenicity. URINARY BLADDER: Fluid is present urinary bladder. There is debris noted in the bladder. The right ureteral flow jet is not seen. The left renal flow jet is noted. OTHER: No other additional [...] Bebo Toribio M.D. CH: KATHRINE Report ID: [id number] Reading Location: [id number] I have personally reviewed and independently examined the renal US images. My findings are reportedin my discussion. Assessment/Plan: Jean-Pierre Sofia is a 56 y.o. male with urinary retention due to BPH with bilateral hydronephrosis.He is now voiding spontaneously without bothersome LUTS however his PVR is markedly elevated at 750ml and he has persistent moderate bilateral hydronephrosis. I discussed my concern for renal deterioration and complete urinary retention if he elects for observation. We discussed options of CIC, indwelling catheter, finasteride, TURP, PVP, urolift, rezum, aquablation, PAE. He has seen a PAE specialist. I think given his median lobe he would be best served with a TURP given the severity of his hydronephrosis and retention. We discussed the typical recovery and potential side effects, particularly retrograde ejaculation. He was agreeble to learning CIC. He will contact us after he considers his options and let us know how he wants to proceed. Plan summary: Start CIC Will await contact from patient for scheduling follow up or TURP Dudley Cárdenas MD Manufacturing Business Analyst Urologic Surgery [facility] Please note: Manufacturing Business Analyst completed using M*Modal Fluency Direct speaking software, therefore, variances/typos may occur. D DESIGNER * Haleigh Finley RMA - 04/30/2022 1:00 PM CST CIC The patient was given written and verbal information on self-catheterization and had the opportunity to ask questions. He was then instructed to wash his hands with soap and water for 20 seconds. Theskin around the patient's meatus was cleansed with an antiseptic towellette. The patient was then instructed to picker machine operator the sterile catheter and use sterile lubricant on the tip. The patient was ableto successfully demonstrate self catheterization with urine return. Supplies and written instructions were sent home with the patient. Patient emptied 1,100mL Pt requires a coude, unable to pass a straight tip. Wicho TELLO Supervising provider present in the office at the time of the visit: Dudley Cárdenas MD D DESIGNER D DESIGNER documented in this encounter Plan of Treatment Not on file documented as of this encounter Procedures Procedure Name Priority Date/Time Associated Diagnosis Comments MEASURE POST VOID RESIDUAL Routine 04/30/2022 Hydronephrosis, unspecified hydronephrosis type documented in this encounter Results * Measure post void residual (04/30/2022) Narrative Haleigh Finley RMA - 04/30/2022 Measurement of Post Void Residual urine and/or bladder capacity ??PVR = 750 ??ml Dudley Cárdenas MD NURSING ASSESSMENTS Final Result documented in this encounter Visit Diagnoses Diagnosis Hydronephrosis, unspecified hydronephrosis type- Primary BPH with obstruction/lower urinary tract symptoms documented in this encounter Care Teams Metal Flooring Installer Relationship Specialty Start Date End Date Hero Acevedo MD [address] [place] [address] DR Song [address] [address] PCP - General Cardiovascular Disease 11/23/17 3 documented as of this encounter
--- OUTSIDE RECORDS SUMMARY | 2024-03-04 10:34 | XMS_ITS | Encounter Summary ---
Author Organization [facility] Address [address] [facility] [address] [place] [address] Care Team Providers Care Corrugator Machine Operator Name Role Phone Hero Acevedo MD Primary Care Provider [phone] Encounter Details Date Type Department Care Team (Late st Contact Info) Description 07/18/2022 Telephone [facility] Nephrology at [address] [place] [address] Leonardo Cristina MD [address] [place] [address] [address] [place] [address] Social History Tobacco Use Types Packs/Day Years [...] on file 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 Gender Identity Not on file Sexual Orientation Not on file documented as of this encounter Ordered Prescriptions Prescription Sig Dispense Quantity Refills Last Filled Start Date End Date doxazosin (CARDURA) 4 mg tablet Take 1 tablet (4 mg total) by mouth nightly 30 tablet 07/20/2022 3 documented in this encounter Miscellaneous Notes * Addendum Note - Nayla Corral MA - 07/20/2022 10:46 AM CDTAddended by: NAYLA CORRAL on: 07/20/2022 10:46 AM Modules accepted: Orders * Telephone Encounter - Leonardo Cristina MD - 07/18/2022 4:15 PM CDT Patient called over the weekend noting that his home blood pressure readings were high. He is on doxazosin 2 mg daily. Increase doxazosin to 4 mg nightly. Asked him to continue home monitoring of blood pressure and to see Dr. Munoz in the near future. documented in this encounter Plan of Treatment Not on file documented as of this encounter Visit Diagnoses Not on filedocumented in this encounter Discontinued Medications Medication Sig Discontinue Reason Start Date End Da te doxazosin (CARDURA) 2 mg tablet Take 1 tablet (2 mg total) by mouth nightly 05/11/2022 07/20/2022 documented as of this encounter Care Teams Corrugator Machine Operator Relationship Specialty Start Date End Date Hero Acevedo MD [address] [place] [address] DR Duncan SINGH [address] [place] [address] PCP - General Cardiovascular Disease 11/23/17 3 documented as of this encounter
--- OUTSIDE RECORDS SUMMARY | 2024-03-04 10:34 | XMS_ITS | Encounter Summary ---
Author Organization [facility] Address [address] [facility] [address] [place] [address] Phone Care Team Providers Care Aerial Sprayer Name Role Phone Hero Acevedo MD Primary Care Provider [phone] Encounter Details Date Type Department Care Team (Late st Contact Info) Description 05/06/2022 Telephone 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 Wicho TELLO X ADMIN ENGINEER documented in this encounter Plan of Treatment Not on file documented as of this encounter Visit Diagnoses Not on filedocumented in this encounter Care Teams Aerial Sprayer Relationship Specialty Start Date End Date Hero Acevedo MD [facility] [address] Duncan SINGH [address] [place] [address] PCP - General Cardiovascular Disease 11/23/17 3 documented as of this encounter
--- OUTSIDE RECORDS SUMMARY | 2024-03-04 10:34 | XMS_ITS | Encounter Summary ---
Author Organization [facility] Address [address] [facility] [address] [place] [address] Care Team Providers Care Bootmaker Name Role Phone Hero Acevedo MD Primary Care Provider [phone] Encounter Details Date Type Department Care Team (Late st Contact Info) Description 08/13/[address] 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 Gender Identity Not on file Sexual Orientation Not on file documented as of this encounter Ordered Prescriptions Prescription Sig Dispense Quantity Refills Last Filled Start Date End Date chlorthalidone 25 mg tablet Take 2 tablets (50 mg total) by mouth daily 60 tablet 11 08/13/2022 3 doxazosin (CARDURA) 4 mg tablet Take 1 tablet (4 mg total) by mouth nightly 90 tablet 3 08/13/2022 3 documented in this encounter Miscellaneous Notes * Addendum Note - Alberto Andrea MA - 08/13/2022 1:58 PM CDTAddended by: ALBERTO ANDREA on: 08/13/2022 01:58 PM Modules accepted: Orders * Telephone Encounter - Alberto Andrea MA - 08/13/2022 1:57 PM CDT Patient contacted and informed. Voiced no concerns. * Telephone Encounter - Feliberto Munoz MD - 08/13/2022 1:17 PM CDT Have him decrease the doxazosin to 4 mg at bedtime, increase chlorthalidone to 50 mg a day and monitor blood pressure * Telephone Encounter - Sandra Cee - 08/13/2022 8:21 AM CDT Patient called and said that he was prescribed a higher dose of Doxazosin yesterday and now is experiencing pain and swelling. He would like to know what to do. Please call him at [phone] documented in this encounter Plan of Treatment Not on file documented as of this encounter Visit Diagnoses Not on filedocumented in this encounter Discontinued Medications Medication Sig Discontinue Reason Start Date End Da te chlorthalidone 25 mg tablet Take 1 tablet (25 mg total) by mouth daily 04/29/2022 08/13/2022 doxazosin (CARDURA) 4 mg tablet Take 1.5 tablets (6 mg total) by mouth nightly 08/12/2022 08/13/2022 documented as of this encounter Care Teams Bootmaker Relationship Specialty Start Date End Date Hero Acevedo MD [address] [facility] [address] Duncan SINGH [address] [place] [address] PCP - General Cardiovascular Disease 11/23/17 7/ 3 documented as of this encounter
--- OUTSIDE RECORDS SUMMARY | 2024-03-04 10:34 | XMS_ITS | Encounter Summary ---
Author Organization [facility] Address [address] [address] Care Team Providers Care Insurance Business Analyst Name Role Phone Hero Acevedo MD Primary Care Provider [phone] Encounter Details Date Type Department Care Team (Late st Contact Info) Description 04/06/2022 5:45 PM SPARE HAND Lab [facility] Outpatient Lab at [address] [address] Social History Tobacco Use Types Packs/Day Years [...] on file Legal Sex Male 3:46 AM SPARE HAND Gender Identity Not on file Sexual Orientation Not on file documented as of this encounter Plan of Treatment Not on file documented as of this encounter Visit Diagnoses Not on filedocumented in this encounter Care Teams Insurance Business Analyst Relationship Specialty Start Date End Date Hero Acevedo MD [address] [facility] [address] Duncan SINGH [address] [place] [address] PCP - General Cardiovascular Disease 11/23/17 3 documented as of this encounter
--- OUTSIDE RECORDS SUMMARY | 2024-03-04 10:34 | XMS_ITS | Encounter Summary ---
Author Organization [facility] Address [address] [facility] [address] [place] [address] Care Team Providers Care Doughnut Icer Machine Name Role Phone Hero Acevedo MD Primary Care Provider [phone] Encounter Details Date Type Department Care Team (Late st Contact Info) Description 05/08/2022 Telephone [facility] Nephrology at [place] [id number] [facility] [address] [place] [address] Feliberto Munoz MD [address] [place] [address] [address] [place] [address] Social History Tobacco Use Types Packs/Day Years [...] on file 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 Script sent out to listed pharmacy. Voiced no concerns. WEB APPLICATION DEVELOPER * Telephone Encounter - Kaykay Andrea MA - 05/08/2022 12:56 PM CST LMOM requesting CB. WEB APPLICATION DEVELOPER * Telephone Encounter - Kaykay Andrea MA - 05/08/2022 12:55 PM CST Convert tamsulosin to doxazosin 2 mg at bedtime and will titrate dose up as needed for blood pressure control. Notify if any difficulty voiding. Let him know this agent will have the same benefit as tamsulosin for urinary issues but also more effect on blood pressure WEB APPLICATION DEVELOPER * Telephone Encounter - Kaykay Andrea MA - 05/08/2022 12:55 PM CST ----- Message from Feliberto Munoz MD sent at 05/08/2022 10:12 AM JAVA WEB APPLICATION DEVELOPER ----- Regarding: FW: BP & Medicine Contact: ----- Message ----- From: Kaykay Andrea MA Sent: 05/08/2022 8:39 AM JAVA WEB APPLICATION DEVELOPER To: Feliberto Munoz MD Subject: FW: BP & Medicine ----- Message ----- From: Jean-Pierre Sofia Sent: 05/07/2022 7:59 PM JAVA WEB APPLICATION DEVELOPER To: [facility] Subject: BP & Medicine Hello Dr Munoz, You asked me to stop taking the supplement and report my BP readings to you in a week. Here they are. Thanks, Jean-Pierre WEB APPLICATION DEVELOPER documented in this encounter Plan of Treatment Not on file documented as of this encounter Visit Diagnoses Not on filedocumented in this encounter Discontinued Medications Medication Sig Discontinue Reason Start Date End Da te tamsulosin (FLOMAX) 0.4 mg extended release capsule TAKE 1 CAPSULE(0.4 MG) BY MOUTH EVERY NIGHT 03/13/2022 05/11/2022 documented as of this encounter Care Teams Doughnut Icer Machine Relationship Specialty Start Date End Date Hero Acevedo MD [facility] [address] Duncan SINGH [address] [place] [address] PCP - General Cardiovascular Disease 11/23/17 3 documented as of this encounter
--- OUTSIDE RECORDS SUMMARY | 2024-03-04 10:34 | XMS_ITS | Encounter Summary ---
Author Organization [facility] Address [address] [place] [address] Phone Care Team Providers Care Windows Server Support Technician Name Role Phone Hero Acevedo MD Primary Care Provider [phone] Encounter Details Date Type Department Care Team (Late st Contact Info) Description 04/05/2022 Orders Only [facility] Surgery [address] [facility] [address] [place] [address] Dudley Cárdenas MD [address] [place], [place] [id number] Social History Tobacco Use Types Packs/Day Years [...] on file 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 Male 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 Gender Identity Not on file Sexual Orientation Not on file documented as of this encounter Ordered Prescriptions Prescription Sig Dispense Quantity Refills Last Filled Start Date End Date amoxicillin-clavul anate (AUGMENTIN) 875-125 mg per tablet Take 1 tablet by mouth 2 (two) times a day for 5 days 10 tablet 04/05/2022 04/10/2022 documented in this encounter Plan of Treatment Not on file documented as of this encounter Visit Diagnoses Not on filedocumented in this encounter Care Teams Windows Server Support Technician Relationship Specialty Start Date End Date Hero Acevedo MD [facility] [address] Duncan SINGH [address] [place] [address] PCP - General Cardiovascular Disease 11/23/17 3 documented as of this encounter
--- OUTSIDE RECORDS SUMMARY | 2024-03-04 10:34 | XMS_ITS | Encounter Summary ---
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 No other issues or concerns to include pain, pressure, burning with urination. Pt ok to cancel nurse visit today. Wicho TELLO BUCKER documented in this encounter Plan of Treatment Not on file documented as of this encounter Visit Diagnoses Not on filedocumented in this encounter Care Teams Cane Flume Watcher Relationship Specialty Start Date End Date Hero Acevedo MD [facility] [address] Duncan SINGH [address] [place] [address] PCP - General Cardiovascular Disease 11/23/17 3 documented as of this encounter
--- OUTSIDE RECORDS SUMMARY | 2024-03-04 10:34 | XMS_ITS | Encounter Summary ---
Author Organization [facility] Address [address] [facility] [address] [place] [address] Care Team Providers Care Seed Sales Manager Name Role Phone Hero Acevedo MD Primary Care Provider [phone] Encounter Details Date Type Department Care Team (Late st Contact Info) Description 05/12/[address] [facility] Nephrology at [place] [id number] [facility] [address] [place] [address] Feliberto Munoz MD [facility]0 [facility] [address] [place] [address] Social History Tobacco Use Types Packs/Day Years [...] on file Legal Sex Male 3:46 AM DUCT LAYER SUPERVISOR Gender Identity Not on file Sexual Orientation Not on file documented as of this encounter Miscellaneous Notes * Telephone Encounter - Kaykay Andrea MA - 05/12/2022 2:30 PM CST Patient contacted and informed of lab results. Advised to maintain on a low potassium diet and to repeat a BMP next week. Lab order entered for [facility]. LAYER SUPERVISOR * Telephone Encounter - Kaykay Andrea MA - 05/12/2022 2:28 PM CST ----- Message from Feliberto Munoz MD sent at 05/12/2022 1:49 PM DUCT LAYER SUPERVISOR ----- Potassium up to 5.5. Continue low-potassium diet and chlorthalidone and would repeat a BMP next week. If remaining elevated may need to resume potassium binding resin. LAYER SUPERVISOR documented in this encounter Plan of Treatment Not on file documented as of this encounter Procedures Procedure Name Priority Date/Time Associated Diagnosis Comments BASIC METABOLIC PANEL Routine 05/18/2022 12:29 PM DUCT LAYER SUPERVISOR CHIO (acute kidney injury) (CMS/HCC) (HCC) Hyperkalemia Hydronephrosis, unspecified hydronephrosis type Acute bilateral obstructive uropathy documented in this encounter Results * (ABNORMAL) Basic metabolic panel (05/18/2022 12:29 PM DUCT LAYER SUPERVISOR) Pathologist [facility] Glucose 73 65 - 99 mg/dL [facility] Comment: ? Fasting reference interval BUN 24 7 - 25 mg/dL [facility] Creatinine 2.05(H) 0.70 - 1.30 mg/dL [facility] eGFR 37(L) > OR = 60 mL/min/1.7 3m2 [facility] Comment: The eGFR is based on the CKD-EPI 2020 equation. To calculate the new eGFR from a previous Creatinine or Cystatin C result, go to https://www.kidney.org/professionals/ kdoqi/gfr%5Fcalculator BUN/creat ratio 12 6 - 22 (calc) [facility] Sodium 138 135 - 146 mmol/L [facility] Potassium, pl 5.3 3.5 - 5.3 mmol/L [facility] Chloride 107 98 - 110 mmol/L [facility] CO2 24 20 - 32 mmol/L [facility] Calcium 9.7 8.6 - 10.3 mg/dL [facility] Blood 05/18/2022 12:2 9 PM DUCT LAYER SUPERVISOR 05/18/2022 12:30 PM DUCT LAYER SUPERVISOR us Feliberto Munoz MD LAB BLOOD ORDERABLES Final Re sult [facility] [address] [place] [address] documented in this encounter Visit Diagnoses Diagnosis CHIO (acute kidney injury) (HCC)- Primary Hyperkalemia Hyperpotassemia Hydronephrosis, unspecified hydronephrosis type Acute bilateral obstructive uropathy Urinary obstruction, unspecified documented in this encounter Care Teams Seed Sales Manager Relationship Specialty Start Date End Date Hero Acevedo MD [address] [place] [address] DR Duncan SINGH [address] [place] [address] PCP - General Cardiovascular Disease 11/23/17 3 documented as of this encounter
--- OUTSIDE RECORDS SUMMARY | 2024-03-04 10:34 | XMS_ITS | Encounter Summary ---
Author Organization [facility] Address [address] [facility] [address] [place] [address] Phone Care Team Providers Care Semiconductor Engineer Name Role Phone Hero Acevedo MD Primary Care Provider [phone] Encounter Details Date Type Department Care Team (Late st Contact Info) Description 03/02/2022 Orders Only [facility] [address] [facility] [address] [place] [address] Ivania Elias Social History Tobacco Use Types Packs/Day Years [...] on file Legal Sex Male 3:46 AM PATIENT SVCS MGR Gender Identity Not on file Sexual Orientation Not on file documented as of this encounter Plan of Treatment Not on file documented as of this encounter Visit Diagnoses Not on filedocumented in this encounter Care Teams Semiconductor Engineer Relationship Specialty Start Date End Date Hero Acevedo MD [address] [facility] [address] Duncan SINGH [address] [place] [address] PCP - General Cardiovascular Disease 11/23/17 3 documented as of this encounter
--- OUTSIDE RECORDS SUMMARY | 2024-03-04 10:34 | XMS_ITS | Encounter Summary ---
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 Gender Identity Not on file Sexual Orientation Not on file documented as of this encounter Ordered Prescriptions Prescription Sig Dispense Quantity Refills Last Filled Start Date End Date amLODIPine (NORVASC) 5 mg tablet Take 1 tablet (5 mg total) by mouth daily 30 tablet 09/11/2022 09/17/2022 documented in this encounter Miscellaneous Notes * Telephone Encounter - Kaykay Andrea MA - 09/11/2022 2:24 PM CDT BP still mildly elevated, would initiate amlodipine 5 mg nightly and continue to monitor his blood pressures documented in this encounter Plan of Treatment Not on file documented as of this encounter Visit Diagnoses Not on filedocumented in this encounter Care Teams Business Relations Manager Relationship Specialty Start Date End Date Hero Acevedo MD [address] [facility] [address] Duncan SINGH [address] [place] [address] PCP - General Cardiovascular Disease 11/23/17 3 documented as of this encounter
--- OUTSIDE RECORDS SUMMARY | 2024-03-04 10:34 | XMS_ITS | Encounter Summary ---
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 Information to be released pending written request for medical records, fax # provided. MJosh TELLO ARCH INTERN documented in this encounter Plan of Treatment Not on file documented as of this encounter Visit Diagnoses Not on filedocumented in this encounter Care Teams Alumnae Secretary Relationship Specialty Start Date End Date Hero Acevedo MD [facility]0 [facility] [address] Duncan SNIGH [address] [place] [address] PCP - General Cardiovascular Disease 11/23/17 3 documented as of this encounter
--- OUTSIDE RECORDS SUMMARY | 2024-03-04 10:34 | XMS_ITS | Encounter Summary ---
Author Organization [facility] Address [address] [facility] [address] [place] [address] Care Team Providers Care Wood Tile Installation Helper Name Role Phone Hero Acevedo MD Primary Care Provider [phone] Encounter Details Date Type Department Care Team (Late st Contact Info) Description 08/28/2022 Telephone [facility] Nephrology at [place] [address] [facility] [address] [place] [address] Feliberto Munoz MD [facility]0 [facility] [address] [place] [address] Social History Tobacco Use Types Packs/Day Years [...] on file 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 Munoz will adjust his meds if required. * Telephone Encounter - Nayla Bales MA - 08/28/2022 10:23 AM CDT ----- Message from Feliberto Munoz MD sent at 08/27/2022 4:04 PM CDT ----- Regarding: FW: BP Readings Contact: ----- Message ----- From: Nayla Bales MA Sent: 08/27/2022 10:43 AM CDT To: Feliberto Munoz MD Subject: FW: BP Readings ----- Message ----- From: Jean-Pierre Sofia Sent: 08/26/2022 9:02 PM CDT To: [facility] Pauly Sánchez Clinical Subject: BP Readings Neal Munoz, Here are my BP readings and some notes. Jean-Pierre Gomez documented in this encounter Plan of Treatment Not on file documented as of this encounter Visit Diagnoses Not on filedocumented in this encounter Care Teams Wood Tile Installation Helper Relationship Specialty Start Date End Date Hero Acevedo MD [facility]0 [facility] [address] Duncan SINGH [address] [place] [address] PCP - General Cardiovascular Disease 11/23/17 3 documented as of this encounter
--- OUTSIDE RECORDS SUMMARY | 2024-03-04 10:34 | XMS_ITS | Encounter Summary ---
Author Organization [facility] Address [address] [facility] [address] [place] [address] Care Team Providers Care Counterperson Name Role Phone Hero Acevedo MD Primary Care Provider [phone] Encounter Details Date Type Department Care Team (Late st Contact Info) Description 03/03/2022 Telephone [facility] Nephrology at [place] [address] [facility] [address] [place] [address] Feliberto Munoz MD [address] [place] [address] [address] [place] [address] Social History Tobacco Use Types Packs/Day Years [...] on file 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 Patient aware to repeat labs in 4 weeks, order entered for [facility]. Lokelma 5 gm decreased to every other day. Patient voiced no concerns. ET CUTTER * Telephone Encounter - Kaykay Andera MA - 03/03/2022 2:00 PM CST ----- Message from Feliberto Munoz MD sent at 03/03/2022 12:54 PM BILLET CUTTER ----- Potassium much better at 4.3 and creatinine stable. Should be on sodium zirconium 5 g daily, can decrease to every other day and repeat a BMP in 4 weeks ET CUTTER documented in this encounter Plan of Treatment Not on file documented as of this encounter Procedures Procedure Name Priority Date/Time Associated Diagnosis Comments BASIC METABOLIC PANEL Routine 09/16/2022 12:27 PM CDT Hyperkalemia Hydronephrosis, unspecified hydronephrosis type documented in this encounter Results * (ABNORMAL) Basic metabolic panel (09/16/2022 12:27 PM CDT) Glucose 76 65 - 99 mg/dL [facility] Comment: ? Fasting reference interval BUN 25 7 - 25 mg/dL [facility] Creatinine 1.88(H) 0.70 - 1.30 mg/dL [facility] eGFR 41(L) > OR = 60 mL/min/1.7 3m2 [facility] Comment: The eGFR is based on the CKD-EPI 2020 equation. To calculate the new eGFR from a previous Creatinine or Cystatin C result, go to https://www.kidney.org/professionals/ kdoqi/gfr%5Fcalculator BUN/creat ratio 13 6 - 22 (calc) [facility] Sodium 138 135 - 146 mmol/L [facility] Potassium, pl 4.9 3.5 - 5.3 mmol/L [facility] Chloride 109 98 - 110 mmol/L [facility] CO2 22 20 - 32 mmol/L [facility] Calcium 9.5 8.6 - 10.3 mg/dL [facility] Blood 09/16/2022 12:2 7 PM CDT 09/16/2022 12:28 PM CDT us Feliberto Munoz MD LAB BLOOD ORDERABLES Final Re sult [facility] [address] [place] [address] documented in this encounter Visit Diagnoses Diagnosis Hyperkalemia- Primary Hyperpotassemia Hydronephrosis, unspecified hydronephrosis type documented in this encounter Care Teams Counterperson Relationship Specialty Start Date End Date Hero Acevedo MD [address] [place] [address] DR Duncan SINGH [address] [place] [address] PCP - General Cardiovascular Disease 11/23/17 3 documented as of this encounter
--- OUTSIDE RECORDS SUMMARY | 2024-03-04 10:34 | XMS_ITS | Encounter Summary ---
Author Organization [facility] Address [address] [facility] [address] [place] [address] Care Team Providers Care Pharmacist In Charge Owner Name Role Phone Hero Acevedo MD Primary Care Provider [phone] Encounter Details Date Type Department Care Team (Late st Contact Info) Description 02/19/2022 Telephone [facility] Nephrology at [place] [address] [facility] [address] [place] [address] Feliberto Munoz MD [address] [place] [address] [address] [place] [address] Social History Tobacco Use Types Packs/Day Years [...] on file 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 Aware script sent out to listed pharmacy and [facility]. Advised to have lab done tomorrow. Voiced no concerns. ILING MACHINE OPERATOR * Telephone Encounter - Kaykay Andrea MA - 02/19/2022 9:04 AM CST ----- Message from Feliberto Munoz MD sent at 02/18/2022 4:55 PM PROFILING MACHINE OPERATOR ----- Potassium up to 5.7, has low-potassium diet info and make sure he is continuing with this also please send a prescription for Lokelma 5 g daily. Would repeat a BMP on Wednesday please ILING MACHINE OPERATOR documented in this encounter Plan of Treatment Not on file documented as of this encounter Procedures Procedure Name Priority Date/Time Associated Diagnosis Comments BASIC METABOLIC PANEL Routine 02/21/2022 12:43 PM PROFILING MACHINE OPERATOR Hyperkalemia documented in this encounter Results * (ABNORMAL) Basic metabolic panel (02/21/2022 12:43 PM PROFILING MACHINE OPERATOR) Pathologist [facility] Glucose 65 65 - 139 mg/dL [facility] Comment: ? Non-fasting reference interval BUN 25 7 - 25 mg/dL [facility] Creatinine 2.48(H) 0.70 - 1.30 mg/dL [facility] eGFR 29(L) > OR = 60 mL/min/1.7 3m2 [facility] Comment: The eGFR is based on the CKD-EPI 2020 equation. To calculate the new eGFR from a previous Creatinine or Cystatin C result, go to https://www.kidney.org/professionals/ kdoqi/gfr%5Fcalculator BUN/creat ratio 10 6 - 22 (calc) [facility] Sodium 146 135 - 146 mmol/L [facility] Potassium, pl 5.3 3.5 - 5.3 mmol/L [facility] Chloride 112(H) 98 - 110 mmol/L [facility] CO2 29 20 - 32 mmol/L [facility] Calcium 8.7 8.6 - 10.3 mg/dL [facility] Blood 02/21/2022 12:4 3 PM PROFILING MACHINE OPERATOR 02/21/2022 12:45 PM PROFILING MACHINE OPERATOR Narrative [facility] - 02/22/2022 7:28 AM PROFILING MACHINE OPERATOR VARIFIED ALL INFO FASTING:NO FASTING: NO us Feliberto Munoz MD LAB BLOOD ORDERABLES Final Re sult [facility] [address] [place] [address] documented in this encounter Visit Diagnoses Diagnosis Hyperkalemia- Primary Hyperpotassemia documented in this encounter Care Teams Pharmacist In Charge Owner Relationship Specialty Start Date End Date Hero Acevedo MD [facility]0 [facility] [address] Duncan SINGH [address] [place] [address] PCP - General Cardiovascular Disease 11/23/17 3 documented as of this encounter
--- OUTSIDE RECORDS SUMMARY | 2024-03-04 10:34 | XMS_ITS | Encounter Summary ---
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 Called back and stated the HR at his work stated they need FMLA filled out again. Pt stated theUrologist doctor filled on out. Pt. Was unsure shy this need to be refilled out. I stated I would call Ms. Cleveland at his work that sent the papers. Pt. Was fine with that. T DESK documented in this encounter Plan of Treatment Not on file documented as of this encounter Visit Diagnoses Not on filedocumented in this encounter Care Teams Delivery Truck Driver Heavy Relationship Specialty Start Date End Date Hero Acevedo MD [address] [place] [address] DR Duncan SINGH [address] [place] [id number] PCP - General Cardiovascular Disease 11/23/17 3 documented as of this encounter
--- OUTSIDE RECORDS SUMMARY | 2024-03-04 10:34 | XMS_ITS | Encounter Summary ---
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 I stated if this is new FMLA to fill out wouldneed to have an apt. With . I asked for pt. To call back. ENTAL WALL INSTALLER documented in this encounter Plan of Treatment Not on file documented as of this encounter Visit Diagnoses Not on filedocumented in this encounter Care Teams Graphic Engineer Relationship Specialty Start Date End Date Hero Acevedo MD [facility]0 [facility] [address] Duncan SINGH [address] [place] [address] PCP - General Cardiovascular Disease 11/23/17 3 documented as of this encounter
--- OUTSIDE RECORDS SUMMARY | 2024-03-04 10:34 | XMS_ITS | Encounter Summary ---
Author Organization [facility] Address [address] [place] [address] Phone Care Team Providers Care Commercial Engineer Name Role Phone Hero Acevedo MD Primary Care Provider [phone] Reason for Visit * Consultation (Routine) - Closed Specialty Diagnoses / Procedures Referred By Contac t Referred To Contact Rheumatology Diagnoses Arthralgia, unspecified joint Shruti Haley PA Phone: tel: fax: [facility] (All Locations) Referral ID Status Reason Start Date Expiration Date V isits Requested Visits Authorized [id number] Closed Specialty Services Required 04/30/2021 3 3 Encounter Details Date Type Department Care Team (Late st Contact Info) Description 03/18/2022 3:40 PM FORMING PROCESS LINE WORKER Office Visit [facility] Rheumatology [address] [facility] [address]th [place] [address] [place] [address] Leana Jack MD [address] [place] [address] Raised antibody titer (Primary Dx); Primary osteoarthritis of both hands Social History Tobacco Use Types Packs/Day Years [...] on file Legal Sex Male 3:46 AM FORMING PROCESS LINE WORKER Gender Identity Not on file Sexual Orientation Not on file documented as of this encounter Last Filed Vital Signs Vital Sign Reading Time Taken Comments Blood Pressure 164/105 03/18/2022 3:49 PM FORMING PROCESS LINE WORKER pt mentioned potassium levels are high Pulse 56 03/18/2022 3:49 PM FORMING PROCESS LINE WORKER Temperature 36.3 ??C (97.4 ??F) 03/18/2022 3 :49 PM FORMING PROCESS LINE WORKER Respiratory Rate - - Oxygen Saturation - - Inhaled Oxygen Concentration - - Weight 94.5 kg (208 lb 6.4 oz) 03/18/2022 3:49 PM FORMING PROCESS LINE WORKER Height 185.4 cm (6' 0.99 ) 03/18/2022 3 :49 PM FORMING PROCESS LINE WORKER Body Mass Index 27.5 03/18/2022 3:49 PM FORMING PROCESS LINE WORKER documented in this encounter Progress Notes * Eric Daniels - 03/18/2022 3:40 PM CST [facility] Division of Rheumatology Established patient visit SUBJECTIVE: CC: Follow-up of joint pain History of Present Illness: A pleasant 56 y.o. male with PMHx significant for anxiety seen by me in September 2021 here for follow-up today. Since then he was recently hospitalized for acute kidney failure secondary to obstructive uropathy superimposed on pre-existing CKD. His creatinine is stable at 2.3 which may be his new baseline. He has had no joint pain, swelling or stiffness. He denies any joint pain or swelling or stiffness today. Recent pertinent history: He has had years of diffuse joint and muscle pain. He had 6 weeks of bilateral wrist extending to the elbows in early 2021, which prompted him to see his PCP, who subsequently referred him to Rheumatology. He has generalized muscle stiffness mainly in neck and shoulders with no prolonged morning stiffness or swelling in joints. 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 Social History Tobacco Use Smoking status: Never [...] 60 each 2 ALLERGIES: Allergies Allergen Reactions Tetracycline Swelling Glutathione (Bulk) Unknown Prozac [Fluoxetine] Unknown Sulfa (Sulfonamide Antibiotics) Diarrhea OBJECTIVE: Physical Examination: Vitals: BP (!) 164/105 (BP Location: Left arm, Patient Position: Sitting) Comment: pt mentioned potassium levels are high Pulse 56 Temp 36.3 ??C (97.4 ??F) (Oral) Ht 185.4 cm (6' 0.99 ) Wt 94.5 kg (208 lb 6.4 oz) BMI 27.50 kg/m?? General-pleasant, well-appearing in no distress HEENT unremarkable Cardiovascular exam S1-S2 Lungs clear to auscultation bilaterally Skin no rash, dry hyperpigmented skin on the dorsal aspect of both hands Extremities no edema Musculoskeletal exam-no synovitis in the joints, full range of motion of all joints Investigations: Labs: Lab Results Component Value Date WBC 5.1 02/12/2022 HGB 14.1 02/12/2022 HCT 41.3 02/12/2022 MCV 89.0 02/12/2022 LABPLAT 204 02/12/2022 Lab Results Component Value Date AST 31 02/04/2022 ALT 41 02/04/2022 CREATININE 2.31 (H) 03/02/2022 Lab Results Component Value Date SEDRATE 29 (H) 04/30/2021 CRP 4.2 04/30/2021 Labs reviewed: ESR 29, CCP Ab >300 negative THERESE, [...] antibodies, clinically he does not have RA. Recent x-rays of his hands and wrists from May 2021 are consistentwith osteoarthritis. He is asymptomatic at the present time. We discussed his lab results and x-rays in detail today. Given he is asymptomatic at this time, he does not warrant any treatment. If he has new joint symptoms, I will consider starting treatment. He understands and agrees with this plan. He will return in 1 year, and call to be seen sooner in case of new or worsening symptoms. Cosigned by Leana Jack MD at 03/20/2022 4:10 PM FORMING PROCESS LINE WORKER ING PROCESS LINE WORKER ING PROCESS LINE WORKER Associated attestation - Leana Jack MD - 03/20/2022 4:10 PM FORMING PROCESS LINE WORKER I have seen and examined the patient. I agree with the findings and plan of care as documented in the medical student's note. My total encounter time on 03/18/2022 was 20 minutes which was spent in theactivities documented in the note. This includes time spent prior to the visit and after the visit in direct care of the patient. This time does not include time spent in any separately reportable services. 56 y/o male with osteoarthritis and high titer CCP antibodies here for follow up today. Doing well,no joint pain except chronic neck and shoulder pain from OA. No pain or swelling or stiffness in the small joints. Exam - HEENT - unremarkable Skin - very dry, scaly on both hands, no rash MSK - no synovitis Recent labs reviewed, prior hand and wrist xrays showed OA A/P - Osteoarthritis with positive CCP antibodies- no features of RA - will watch for now. He will return in 6 months. documented in this encounter Plan of Treatment Not on file documented as of this encounter Visit Diagnoses Diagnosis Raised antibody titer- Primary Other and unspecified nonspecific immunological findings Primary osteoarthritis of both hands documented in this encounter Historical Medications * This list may reflect changes made after this encounter. Medication Sig Dispense Quantity Refills Last Filled Start D ate End Date louismerchris (CURCUMIN MISC) 03/29/2023 added in this encounter Care Teams Commercial Engineer Relationship Specialty Start Date End Date Hero Acevedo MD [address] [facility] [address] Duncan SING[address] [place] [address] PCP - General Cardiovascular Disease 11/23/17 3 documented as of this encounter
--- OUTSIDE RECORDS SUMMARY | 2024-03-04 10:35 | XMS_ITS | Encounter Summary ---
Author Organization [facility] Address [address] [facility] [address] [place] [address] Phone Care Team Providers Care Radiological Defense Officer Name Role Phone Hero Acevedo MD Primary Care Provider [phone] Encounter Details Date Type Department Care Team (Late st Contact Info) Description 02/13/2022 Transitional Care Outreach 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 [facility] [address] Dun[place]n SINGH [address] [place] [address] PCP - General Cardiovascular Disease 11/23/17 3 documented as of this encounter
--- OUTSIDE RECORDS SUMMARY | 2024-03-04 10:35 | XMS_ITS | Encounter Summary ---
Author Organization [facility] Address [address] [facility] [address] [place] [address] Care Team Providers Care Metal Burrer Name Role Phone Hero Acevedo MD Primary Care Provider [phone] Encounter Details Date Type Department Care Team (Late st Contact Info) Description 01/27/2022 Telephone [facility] Nephrology at [place] [id number] [facility] [address] [place] [address] Feliberto Munoz MD [address] [place] [address] [address] [place] [address] Social History Tobacco Use Types Packs/Day Years Used Date Smoking Tobacco: Never Smokeless Tobacco: Never Alcohol Use Standard Drinks/Week Comments Not Currently 0 (1 standard drink = 0.6 oz pur e alcohol) AUDIT-C Answer Date Recorded Q1: How often do you have a drink containing alc ohol? Never 08/27/2020 Average Number of Drinks Not on file 021 Frequency of Binge Drinking Not on file 08/13 Sex and Gender Information Value Date Recorded Sex Assigned at Not on file Legal Sex Male 3:46 AM EMBEDDED DEVELOPER Gender Identity Not on file Sexual Orientation Not on file documented as of this encounter Miscellaneous Notes * Telephone Encounter - Nayla Bales MA - 01/27/2022 2:37 PM EMBEDDED DEVELOPER Pt was informed. DDED DEVELOPER * Telephone Encounter - Nayla Bales MA - 01/27/2022 2:37 PM EMBEDDED DEVELOPER ----- Message from Feliberto Munoz MD sent at 01/27/2022 2:27 PM EMBEDDED DEVELOPER ----- Please let him know potassium has much better and is normal. Creatinine stable and will await ultrasound results DDED DEVELOPER documented in this encounter Plan of Treatment Not on file documented as of this encounter Visit Diagnoses Not on filedocumented in this encounter Care Teams Metal Burrer Relationship Specialty Start Date End Date Hero Acevedo MD [address] [place] [address] DR [address]ING[address] [place] [id number] PCP - General Cardiovascular Disease 11/23/17 3 documented as of this encounter
--- OUTSIDE RECORDS SUMMARY | 2024-03-04 10:35 | XMS_ITS | Encounter Summary ---
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 Cárdenas pt was concerned because he has a catheter advised it was ok to keep a catheter in for 30 days. Will route JONY [employer]tiz[employer] from his employer. 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 He saw Raquel Joseph on 02/12 but in her notes from what I saw she didn't specify on when/or if he was supposed to return for his dominguez removal. NCIAL REPORTING ACCOUNTANT documented in this encounter Plan of Treatment Not on file documented as of this encounter Visit Diagnoses Not on filedocumented in this encounter Care Teams Brief Writer Relationship Specialty Start Date End Date Hero Acevedo MD [facility] [address] [place] [address] PCP - General Cardiovascular Disease 11/23/17 3 documented as of this encounter
--- OUTSIDE RECORDS SUMMARY | 2024-03-04 10:35 | XMS_ITS | Encounter Summary ---
Author Organization [facility] Address [address] [place] [address] Care Team Providers Care Trench Digger Helper Name Role Phone Hero Acevedo MD Primary Care Provider [phone] Reason for Visit * Reason Comments Abnormal Lab * Auth/Cert Specialty Diagnoses / Procedures Referred By Contac t Referred To Contact Diagnoses Hyperkalemia Procedures na Referral ID Status Reason Start Date Expiration Date Visits Re quested Visits Authorized [id number] 1 1 Encounter Details Date Type Department Care Team (Latest Contact Info) Description 02/04/2022 1:13 PM SPEEDOMETER MECHANIC - 02/12/2022 3:38 PM SPEEDOMETER MECHANIC Hospital Encounter [address] [phone] Deidre Dickson MD [address] [place] [address] [place] [address] Kyung Garcia MD [address] [place] [address] [place], [place] [id number] Jo Toribio MD [address] [place] [phone] Jerry Dutta MD [address] [place] [place] [address] [phone] Hyperkalemia (Primary Dx); Urinary retention; Acute renal failure, unspecified acute renal failure type (HCC) Discharge Disposition: Discharge to home or self [...] on file Legal Sex Male 3:46 AM SPEEDOMETER MECHANIC Gender Identity Not on file Sexual Orientation Not on file documented as of this encounter Last Filed Vital Signs Vital Sign Reading Time Taken Comments Blood Pressure 111/72 02/12/2022 11:00 AM SPEEDOMETER MECHANIC Pulse 87 02/12/2022 11:00 AM SPEEDOMETER MECHANIC Temperature 37.2 ??C (99 ??F) 02/12/2022 11:00 AM SPEEDOMETER MECHANIC Respiratory Rate 18 02/12/2022 11:00 AM SPEEDOMETER MECHANIC Oxygen Saturation 98% 02/12/2022 11:00 AM SPEEDOMETER MECHANIC Inhaled Oxygen Concentration - - Weight 81.2 kg (179 lb) 02/11/2022 11:20 PM SPEEDOMETER MECHANIC Height 185.4 cm (6' 0.99 ) 02/04/2022 4:50 PM CS T Body Mass Index 23.62 02/04/2022 4:50 PM SPEEDOMETER MECHANIC documented in this encounter Discharge Summaries * Jerry Dutta MD - 02/12/2022 2:43 PM CST Inpatient Discharge Summary Patient Name - Jean-Pierre Sofia Patient Age - 56 yrs Patient - [id number] [facility] - [id number] Document Creation Date: 02/12/2022 Admitting Provider, : Kyung Garcia MD Discharge Provider, : Jerry Dutta MD Primary Care Physician at Discharge: Hero Acevedo MD [phone] Admission Date: 02/04/2022 Discharge Date/time: 02/12/22 Admission Location: [facility] LOS - LOS: 8 days DETAILS OF HOSPITAL STAY Hospital Problems/Diagnoses Principal Problem: Hyperkalemia Reason for Hospitalization: Hyperkalemia, CHIO Hospital Course: This is a 56-year-old male who presented to emergency room for evaluation of abnormal lab results. Patient states that his primary care physician has been monitoring his renal function since April of 2021. Serum creatinine started out at 1.6 and has been progressively getting worse. Patient had a follow-up appointment with Dr. Munoz today. Patient states today was his 1st in person appointment with insurance sales supervisor. He was noted to have elevated serum creatinine 2.6 with potassium of 6.8. Patient was sent to emergency room for further evaluation. Nephrology was consulted. Hyperkalemia resolved. Patient had acute kidney failure secondary from obstructive uropathy. Calderón catheter was placed. Patient had significant urine output. IV fluid was started. Patient was put on low-potassium diet. Urology was consulted urology recommended voiding trial before discharge Calderón catheter was taken out patient had postvoid urine volume 1 L and Calderón catheter was put back. Patient is on tamsulosin. Patient will be discharged home with Calderón catheter urology will follow as outpatient. A/P: 02/07 Patient still has hematuria Creatinine is 2.2 Potassium is 5.2 Sodium is 131, asymptomatic Patient complaining of constipation with normal exam Plan Start him on low-potassium diet Fluid restriction to 1500 Nancy per day Consult urology for hematuria and obstructive uropathy Avoid any nephrotoxic drugs and follow kidney function daily Decrease IV fluids GI DVT prophylaxis A.m. labs 02/08 Patient still with hematuria His creatinine is 2.2 Potassium is 4.6 Sodium is 131, asymptomatic Chest is clear Plan Patient is currently on low-potassium diet Continue with fluid restriction Avoid any nephrotoxic drugs and follow kidney function daily Gentle IV fluids Start Advair DVT GI prophylaxis A.m. labs Assessment and plan 02/09/2022 Principal Problem: Hyperkalemia Resolved Problems: No resolved hospital problems. Acute renal failure Hyponatremia Urinary obstruction Hematuria Plan 02/09/22 Acute renal failure secondary to obstructive uropathy. Improving. Hyperkalemia resolved. Nephrologyis following. Creatinine is stable at 2.2. Potassium 4.6. Hyponatremia resolved sodium is 138. Patient is on sodium tablet and fluid restriction. Calderón catheter in place. Continue Calderón catheter. urology consult placed. Continue Flomax. Added Tylenol and Moseley for pain Plan 02/10/22 Acute renal failure secondary to obstructive uropathy. Improving. Hyperkalemia resolved. Nephrologyis following. Creatinine is is slightly elevated is 2.5. Nephrology is okay discharge.. Potassium 4.8. Hyponatremia resolved sodium is 136. Patient is on sodium tablet and fluid restriction. Nephrology discontinued sodium chloride tablets. Urology recommended voiding trial before discharge. Calderón catheter was removed. Patient urinated 100 mg and patient had residual urine 200 mL. Urology recommended to do bladder scan in every shift Will keep patient overnight and if if patient had adequate urine output with insignificant PVR we willdischarge patient tomorrow morning Continue Flomax. Constipation: Patient did not have a bowel movement is willing to have an enema. I order tap enema MDM low Plan 02/11/22 Acute renal failure secondary to obstructive uropathy. Improving. Hyperkalemia resolved. Nephrologyis following. Creatinine is is slightly better is 2.2. Nephrology is okay discharge.. Potassium 4.8. Hyponatremia: sodium is 132. Off sodium chloride tablets. Urinary retention: Patient had more than 600 residual urine volume after patient had bowel movement and voiding. Calderón catheter was placed patient had 1 L urine output. Calderón catheter placement was difficult and now patient is having some blood-stained urine. Will closely monitor overnight. Will repeat H&H tomorrow. Continue Flomax. Constipation: Patient received enema and bowel regimen and had bowel movement. If hematuria resolves possible discharge home tomorrow Discharge Details Physical Exam at Discharge: Discharge Condition: good Pulse: 87 Resp: 18 BP: 111/72 Temp: 37.2 ??C (99 ??F) Weight: 81.2 kg (179 lb) Pertinent Exam Findings at Discharge: General appearance: Not in acute distress lying comfortably in the bed Eyes: EOMI, FALLON, sclare non icteric Neck: supple, no nuchal ridigity, no gross carotid bruits appreciated Pharynx: No gross oral lesion, tongue midline, mucosa moist Lungs CTA Heart: [id number], no significant murmur or gallop Abd: +BS, Non Tender, Non distended, No gross hepatomegaly : Calderón catheter was removed Lower Ext: No gross edema, pedal artery pulses are palpable bilaterally Neuro: No new deficits appreciated Musculoskeletal: no gross joint erythema, edema, tenderness Skin: No new change Discharge Disposition: Discharge to home or self care Code Status at Discharge: Full Code Active Issues & Recommended Plan for Follow-up: Allergies: Tetracycline, Glutathione (bulk), Prozac [fluoxetine], and Sulfa (sulfonamide antibiotics) Discharge Medications: Your medication list START taking these medications Instructions Last Dose Given Next Dose Due bisacodyl EC 5 mg EC tablet Commonly known as: DULCOLAX EC Take 2 tablets (10 mg total) by mouth daily as needed for constipation docusate sodium 100 mg capsule Commonly known as: COLACE Take 1 capsule (100 mg total) by mouth 2 (two) times a day lactulose 0.67 gram/mL solution Take 30 mL (20 g total) by mouth daily as needed (conspitation) lidocaine 4 % cream Commonly known as: LMX Apply 2.5 g (1 application total) topically 4 (four) times a day as needed for pain polyethylene glycol 17 gram packet Commonly known as: MIRALAX Take 1 packet (17 g total) by mouth daily CONTINUE taking these medications Instructions Last Dose Given Next Dose Due acidophilus-pectin, citrus 100 million cell-10 mg capsule albuterol HFA 90 mcg/actuation inhaler Commonly known as: ProAir HFA Inhale 2 puffs every 4 (four) hours as needed for wheezing or shortness of breath cholecalciferol 25 mcg (1,000 unit) tablet Commonly known as: VITAMIN D-3 PARoxetine 30 mg tablet Commonly known as: PAXIL Take 1 tablet (30 mg total) by mouth every morning. polycarbophil 625 mg tablet Commonly known as: FIBERCON tamsulosin 0.4 mg extended release capsule Commonly known as: FLOMAX Take 1 capsule (0.4 mg total) by mouth nightly UNABLE TO FIND venlafaxine XR 37.5 mg 24 hr capsule Commonly known as: EFFEXOR-XR Take 1 capsule (37.5 mg total) by mouth daily. Wixela Inhub 250-50 mcg/dose diskus inhaler Generic drug: fluticasone propion-salmeteroL INHALE 1 PUFF BY MOUTH DAILY. RINSE MOUTH WITH WATER AFTER USE TO REDUCE AFTERTASTE AND INCIDENCE OF CANDIDIASIS. DO NOT SWALLOW STOP taking these medications chlorthalidone 25 mg tablet Where to Get Your Medications These medications were sent to [id number] - [place], [place] - [address], [place] [id number] bisacodyl EC 5 mg EC tablet docusate sodium 100 mg capsule lactulose 0.67 gram/mL solution lidocaine 4 % cream polyethylene glycol 17 gram packet Time Spent in Discharge Process: I have spent 38 minutes on discharge planning activities. Test Results Pending at Discharge (If Blank, None Found): Operative Procedures Performed (If Blank, None Found): Outpatient Follow-Up: Future Appointments Date Time Provider Department Center 03/05/2022 3:45 PM Feliberto Munoz MD [facility] 280 Specialty 03/18/2022 3:40 PM Leana Jack MD [address] Contact Information for Follow-ups Hero Acevedo MD Specialty: Cardiovascular Disease, Internal Medicine Relationship: PCP - General [address] [place], [place] [address]ELEAZAR SINGH [address] [place] [address] Next Steps: Schedule an appointment as soon as possible for a visit in 1 week(s) Instructions: call to schedule a follow up appointment Feliberto Munoz MD Specialty: Nephrology, Internal Medicine [address] [place] [address] DR SINGH [address] [place] [id number] Next Steps: Follow up on 03/05/2022 Instructions: 3:45 Raquel Joseph NP Specialty: Urology, Internal Medicine, Nurse Practitioner, Gastroenterology [address] [place] [id number] Next Steps: Follow up in 1 week(s) Please schedule an appointment with the following provider(s): Hero Acevedo MD [address] [place], [place] [address]ELEAZAR SINGH [address] [place] [phone] Schedule an appointment as soon as possible for a visit in 1 week(s) call to schedule a follow up appointment Feliberto Munoz MD [address] [place] [address] [address] SINGH [address] [place] [id number] Follow up on 03/05/2022 3:45 Raquel Joseph, LAUNDERER HAND [address] [address] Follow up in 1 week(s) ANCILLARY INFORMATION Other Procedures & Diagnostic Tests: XR Chest 1 Vw Portable Result Date: 02/04/2022 EXAM DESCRIPTION: XR CHEST 1 VIEW REASON FOR STUDY: chest pain Today Onset chest pain with abnormallabs from his recent visit TECHNIQUE: One radiographic view of the chest acquired. COMPARISON: None. FINDINGS: LUNGS/PLEURA: No focal consolidation or pneumothorax. No pleural effusion. HEART/MEDIASTINUM: Heart size is normal. Normal mediastinal and hilar contours. HARDWARE/LINES/TUBES: None. BONES: No acute findings. OTHER: No other significant finding. IMPRESSION: No acute cardiopulmonary abnormality. THIS IS AN ELECTRONICALLY VERIFIED FINAL REPORT 02/04/2022 1:12 PM - Electronically signed by Bebo Toribio M.D. T: Report ID: [id number] Reading Location: [place] [address] US Kidney Complete Result Date: 02/04/2022 EXAM DESCRIPTION: US KIDNEY COMPLETE REASON FOR STUDY: Urinary retention with acute renal failure for 1 day. COMPARISON: None available. TECHNIQUE: Ultrasound of the kidneys and urinary bladder was performed with grayscale imaging. FINDINGS: RIGHT KIDNEY: The right kidney measures 12.6 cm. There isincreased in echogenicity with normal cortical thickness. There is mild to moderate hydronephrosis.No renal mass is seen. LEFT KIDNEY: The left kidney measures 10.4 cm. There is increased in echogenicity with normal cortical thickness. There is no mild to moderate hydronephrosis. No renal mass is seen. URINARY BLADDER: There is a Calderón catheter in the bladder which is not completely decompressedthe bladder. There is wall thickening of the urinary bladder measuring 1.6 cm. The findings which suggest chronic outlet obstruction but nonspecific. OTHER: No other additional findings. IMPRESSION: 1. Evidence of medical renal disease. 2. [id number] bilateral hydronephrosis. 3. Marked wall thickening of the urinary bladder incompletely decompressed by Calderón catheter. Urology follow-up recommended. 4. Constellation of findings suggest the possibility of chronic outlet obstruction such as from the prostate but nonspecific. THIS IS AN ELECTRONICALLY VERIFIED FINAL REPORT 02/04/2022 3:58 PM - Electronically signed by Bebo Toribio M.D. T:Report ID: [id number] Reading Location: [id number] Recent Labs: Recent Labs Lab Units 02/12/22 07502/10/22 0500 02/07/22 0542 WBC K/cumm 5.1 7.8 10.9* HEMOGLOBIN g/dL 14.1 13.6 13.3 HEMATOCRIT % 41.3 39.7 38.2* PLATELETS K/cumm 204 227 234 Recent Labs Lab Units 02/12/22 07502/10/22 0500 02/07/22 0542 WBC K/cumm 5.1 7.8 10.9* HEMOGLOBIN g/dL 14.1 13.6 13.3 HEMATOCRIT % 41.3 39.7 38.2* PLATELETS K/cumm 204 227 234 NEUTROS PCT % 57.6 60.0 76.7 LYMPHS PCT % 24.8 24.8 10.7 MONOS PCT % 12.5 8.8 11.5 EOS PCT % 2.9 4.5 0.3 Recent Labs Lab Units 02/12/2274902/11/22 0717 02/10/22 0500 02/08/22 0444 02/07/22 0542 SODIUM mmol/L 137 132* 136 < > 131* POTASSIUM PLASMA mmol/L 5.1* 4.8 4.8 < > 5.2* CHLORIDE mmol/L 99 97 101 < > 100 CO2 mmol/L 28 24 24 < > 23 BUN SERUM mg/dL 41* 39* 39* < > 25 CREATININE mg/dL 2.20* 2.20* 2.50* < > 2.20* [id number] mL/min/1.73 m2 34 34 29 < > 34 GLUCOSE mg/dL 84 84 94 < > 117 CALCIUM mg/dL 9.7 9.5 9.5 < > 9.5 PHOSPHORUS PLASMA mg/dL -- -- -- -- 4.1 < > = values in this interval not displayed. Recent Labs Lab Units 02/12/22 0750 02/11/22 0717 02/10/22 0500 SODIUM mmol/L 137 132* 136 POTASSIUM PLASMA mmol/L 5.1* 4.8 4.8 CHLORIDE mmol/L 99 97 101 CO2 mmol/L 28 24 24 ANIONGAP mmol/L 10 11 11 GLUCOSE mg/dL 84 84 94 BUN SERUM mg/dL 41* 39* 39* CREATININE mg/dL 2.20* 2.20* 2.50* CALCIUM mg/dL 9.7 9.5 9.5 No lab exists for component: LABALBU Recent Labs Lab Units 02/07/22 0542 MAGNESIUM mg/dL 1.7 Lab Results Component Value Date GLUCOSE 84 02/12/2022 GLUCOSE 84 02/11/2022 GLUCOSE 94 02/10/2022 Implant: Implants No active implants to display in this view. General Precautions (If Blank, None Found): Isolation Status: No active isolations Nutritional Status and in-house recommendations: Dietary Orders (From admission, onward) Start Ordered 02/11/22 0939 Late Tray Diet Once (Routine) Comments: 2 prune juices please 02/11/22 0938 02/08/22 1343 Adult Diet Restricted; Low Potassium Diet effective now Question Answer Comment (MHB/MHE/SHELTER) Diet type Restricted Renal: Low Potassium 02/08/22 1343 02/06/22 0954 Diet message Once (Routine) Comments: Patient is requesting more fruit with trays. 02/06/22 0954 02/05/22 1658 Late Tray Diet Once (Routine) Comments: Please send 5 cups of grapes 02/05/22 1701 02/04/22 1711 Late Tray Diet Once (Routine) 02/04/22 1710 Anticoagulation Indication: INR: No results found for requested labs within last 720 hours. Warfarin Administrations (last 168 hours) None Oxygen Status: O2 Therapy for the past 12 hrs: O2 Therapy 02/12/22 1100 None (Room air) 02/12/22 0738 None (Room air) 02/12/22 0335 None (Room air) Wound Care Instructions Active LDAs (If Blank, None Found): Urethral Catheter (Active) Placement Date/Time: 02/11/221756 Tube Size (Fr.): 16 Fr Catheter Balloon Size: 10 mL Urine Returned: Yes Patient Emergency Contact: Primary Emergency Contact: Marina Sofia Immunization Status at Discharge Immunization History Administered Date(s) Administered DTP 05/14/1964, 06/25/1964, 08/13/1964, 08/18/1965, 11/10/1968 Flucelvax Influenza Quad 02/19/2017 Influenza, Quadrivalent, Cell Culture-based MDCK, Antibiotic Free, Intramuscular 01/27/2019 Influenza, Quadrivalent, Split, Intramuscular 02/14/2016 Influenza, Quadrivalent, Split, Preservative Free, Intramuscular 01/13/2018, 01/14/2018, 12/22/2019, 11/25/2021 Influenza, Trivalent, Intramuscular 02/22/2015 MMR 08/26/1979 OPV 06/25/1964, 08/13/1964, 05/12/1965, 08/18/1965, 11/10/1968, 10/14/1979 Pfizer SARS-CoV-2 Vaccination (12+ yrs) PURPLE 06/26/2021 Pneumococcal Polysaccharide PPV23 06/02/2019 Td, adsorbed 07/31/1994, 08/01/2004 Tdap 12/27/2014 Jerry Dutta MD DOMETER MECHANIC documented in this encounter Discharge Instructions * Attachments The following attachments cannot be sent through Care Everywhere. * Calderón Catheter Placement and Care (Discharge Care) (Kinyarwanda) documented in this encounter Medications at Time of Discharge albuterol HFA (ProAir HFA) 90 mcg/actuation inhalerIndication s:Moderate persistent asthma without complication Inhale 2 puffs every 4 (four) hours as needed for wheezing or shortness of breath 3 each 3 01/01/2022 cholecalciferol (VITAMIN D-3) 25 mcg (1,000 unit) tablet Take 4 tablets (4,000 Units total) by mouth daily PARoxetine (PAXIL) 30 mg tabletIndications :Depression, unspecified depression type Take 1 tablet (30 mg total) by mouth every morning. 30 tablet 3 11/29/2017 polycarbophil (FIBERCON) 625 mg tablet Take 1 tablet (625 mg total) by mouth daily polyethylene glycol (MIRALAX) 17 gram packetIndications :constipation Take 1 packet (17 g total) by mouth daily 30 packet 02/12/2022 acidophilus-pecti n, citrus 100 million cell-10 mg capsule Take 1 capsule by mouth daily 3 bisacodyl EC (DULCOLAX EC) 5 mg EC tabletIndications :constipation Take 2 tablets (10 mg total) by mouth daily as needed for constipation 30 tablet 02/12/2022 3 docusate sodium (COLACE) 100 mg capsuleIndication s:constipation Take 1 capsule (100 mg total) by mouth 2 (two) times a day 60 capsule 02/12/2022 3 lactulose solution 10 gram/15mL Take 30 mL (20 g total) by mouth daily as needed (conspitation) 300 mL 02/12/2022 3 lidocaine (LMX) 4 % cream Apply 2.5 g (1 application total) topically 4 (four) times a day as needed for pain 30 g 02/12/2022 3 tamsulosin (FLOMAX) 0.4 mg extended release capsule Take 1 capsule (0.4 mg total) by mouth nightly 30 capsule 02/02/2022 2 UNABLE TO FIND Take 1 each by [...] 06/02/2021 3 documented as of this encounter Ordered Prescriptions Prescription Sig Dispense Quantity Refills Last Filled Start Date End Date polyethylene glycol (MIRALAX) 17 gram packetIndications :constipation Take 1 packet (17 g total) by mouth daily 30 packet 02/12/2022 lidocaine (LMX) 4 % cream Apply 2.5 g (1 application total) topically 4 (four) times a day as needed for pain 30 g 02/12/2022 3 lactulose solution 10 gram/15mL Take 30 mL (20 g total) by mouth daily as needed (conspitation) 300 mL 02/12/2022 3 docusate sodium (COLACE) 100 mg capsuleIndication s:constipation Take 1 capsule (100 mg total) by mouth 2 (two) times a day 60 capsule 02/12/2022 3 bisacodyl EC (DULCOLAX EC) 5 mg EC tabletIndications :constipation Take 2 tablets (10 mg total) by mouth daily as needed for constipation 30 tablet 02/12/2022 3 documented in this encounter Discharge Disposition Disposition Code Departure Means Destination Discharge to home or self care documented in this encounter Progress Notes * Raquel Joseph LAUNDERER HAND - 02/12/2022 10:33 AM CST Urology Progress Note Interval Summary: -Patient went back into urinary retention and calderón placed last night with about 1 L urine returned. Objective Recent Vitals(24hr Range): Vitals: 02/11/22 1947 02/11/22 2320 02/12/22 0335 02/12/22 0738 BP: 110/74 130/88 118/76 BP Location: Right arm Right arm Right arm Patient Position: Lying Lying Pulse: 78 76 75 Resp: 16 17 18 Temp: 36.4 ??C (97.5 ??F) 36.3 ??C (97.4 ??F) 36.5 ??C (97.7 ??F) TempSrc: Oral Oral Oral SpO2: 97% 99% 99% 99% Weight: 81.2 kg (179 lb) Height: I and Os: I/O last 3 completed shifts: In: 570 [P.O.:570] Out: 14803 [Urine:56196] I/O this shift: In: - Out: 650 [Urine:650] I/O last 2 completed shifts: In: 570 [P.O.:570] Out: 8900 [Urine:8900] I/O this shift: In: - Out: 650 [Urine:650] Physical exam: Physical Exam Vitals reviewed. Constitutional: Appearance: Normal appearance. HENT: Head: Normocephalic. Eyes: Conjunctiva/sclera: Conjunctivae normal. Pulmonary: Effort: Pulmonary effort is normal. Abdominal: General: There is no distension. Tenderness: There is no abdominal tenderness. Genitourinary: Comments: Calderón with clear, light yellow urine Neurological: Mental Status: He is alert and oriented to person, place, and time. Psychiatric: Mood and Affect: Mood normal. Behavior: Behavior normal. Lab/Radiology/Diagnostic Review: Chem/LFT Lab History Some values may be hidden. Unless noted otherwise, only the newest values recorded on each date aredisplayed. Labs-Chem/LFT Latest Ref Range 02/09/22 02/10/22 02/11/22 02/12/22 Sodium 135 - 145 mmol/L 138 136 132 (A) 137 Potassium Lvl Creatinine 0.80 - 1.30 mg/dL 2.20 (A) 2.50 (A) 2.20 (A) 2.20 (A) Bilirubin, total AST ALT CrCl- Actual Body Weight (Cockcroft-Gault) 47.3 41.6 42 42 (A) Abnormal value Hematology Lab History Some values may be hidden. Unless noted otherwise, only the newest values recorded on each date aredisplayed. Labs - Hematology Latest Ref Range 02/05/22 02/07/22 02/10/22 02/12/22 WBC 3.8 - 9.9 K/cumm 12.3 (A) 10.9 (A) 7.8 5.1 Total Hb, POC 13.0 - 17.5 g/dL 12.1 (A) 13.3 13.6 14.1 Hct 38.9 - 50.3 % 36.4 (A) 38.2 (A) 39.7 41.3 Plt 150 - 400 K/cumm 234 234 227 204 Platelets Neutrophil abs 1.7 - 6.5 K/cumm 10.6 (A) 8.4 (A) 4.7 3.0 Lymphocytes, abs 0.8 - 3.3 K/cumm 1.0 1.2 1.9 1.3 (A) Abnormal value Principal Problem: Hyperkalemia Assessment : 56 y.o. male with urinary retention and gross hematuria post calderón catheter placement. Gross hematuria has resolved. He had calderón removed for void trial. Initially post void residual was reasonable but slowly continued to increase. Calderón catheter was replaced last night with approximately 1L urine returned. Initially it was reported urine was bloody likely from prostatic bleeding. Currently urineappears yellow. Plan Plan to discharge with calderón catheter in place. Continue flomax. We will arrange cystoscopy as outpatient for further evaluation. Thank you for allowing us to participate in the care of this patient. For any questions or concerns, please refer to specialty portal to page appropriate provider senior education specialist. Raquel Joseph NP 02/12/2022 Cosigned by Dudley Cárdenas MD at 02/13/2022 5:16 PM SPEEDOMETER MECHANIC DOMETER MECHANIC DOMETER MECHANIC DOMETER MECHANIC * Feliberto Munoz MD - 02/12/2022 9:28 AM CST Nephrology Daily Progress Subjective Reason for follow up acute kidney failure, hyperkalemia. Interval History: Feels well this morning, required replacement of Calderón catheter Objective Vitals: 24hr Min/Max: Temp Min: 36.3 ??C (97.4 ??F) Max: 36.9 ??C (98.5 ??F) Pulse Min: 73 Max: 79 BP Min: 110/74 Max: 138/84 Resp Min: 16 Max: 19 SpO2 Min: 97 % Max: 100 % Most Recent: Vitals: 02/12/22 0738 BP: 118/76 Pulse: 75 Resp: 18 Temp: 36.5 ??C (97.7 ??F) SpO2: 99% Physical Exam: Constitutional: Appears well-developed and well-nourished. Head: Normocephalic [...] dry. Psychiatric: Normal mood and affect. Assessment/Plan Principal Problem: Hyperkalemia Acute kidney failure, obstructive uropathy Acute kidney failure and hyperkalemia in the setting of obstructive uropathy. Asked to present to the ER yesterday for significant hyperkalemia. Met him for the 1st time yesterday in that setting. Calderón catheter placed with massive postobstructive diuresis. He is hemodynamically stable. Converted to LR but now somewhat hypernatremic and will revert back to normal saline. At this point we may be driving his urine output somewhat with his IV fluid rate and will decrease this to 75 mL/hour. If he continues to have massive urine output or is hypotensive will reassess. Potassium unremarkable this morning. Started on tamsulosin. Will plan to repeat labs in a.m. 02/06 Chemistry panel pending this morning. Very impressive postobstructive diuresis with over 13 L recorded yesterday. He remains hemodynamically stable and thus did decrease his replacement fluid rate yesterday. Will await chemistry panel adjust according this morning. Converted to normal saline again yesterday given mild hyponatremia. Hopefully will see continued improvement in kidney function with relief of obstruction. Mild hematuria likely secondary to prior stretching of bladder with tamponadeeffect now relieved by Calderón. Given his massive diuresis would plan to keep him hospitalized for now to monitor and repeat labs in a.m.. If blood pressure decreasing will increase IV fluid rate and adjust pending lab results Addendum, labs have returned with a sodium of 125. Placing him on oral fluid restriction and will repeat a chemistry panel this afternoon and start sodium chloride and potassium replacement 02/07/2022 Cutting back on IV fluids to 50 mL/hour. Putting him on a low-potassium diet. Serum sodium has improved to 131. Tightening fluid restriction to 1500 mL per day. Will need Urology consultation as wellfor his obstructive uropathy likely bladder outlet obstruction from enlarged prostate and will needoutpatient voiding trial. Also does have some hematuria likely from decompression of the bladder. Avoid hypotension and nephrotoxins. Serum creatinine at 2.2 and probably close to baseline. Probably has underlying medical renal disease from longstanding obstruction. 02/08/22 Will discontinue IV fluids. Encourage oral fluids/food. Continue Calderón catheter. On tamsulosin as well. Will need Urology consultation. Serum creatinine stabilizing around 2.2 which may be his baseline. Continue to monitor for volume depletion since may have post obstructive diuresis. 02.09 Continues to have postobstructive diuresis but urine volumes have been decreasing, hyponatremia also improved, currently off fluid restriction but would continue sodium chloride tablets. Serum creatinine stable and possibly at baseline renal function. Discussed with him that he will need to have his Calderón catheter in place for now and will need to be evaluated by Urology, likely significant BPH, continue tamsulosin. 02/10 Serum creatinine stable, hopefully will see some improvement over time with relief of obstruction. Electrolytes unremarkable. Will discontinue sodium chloride tabs. Urology recommending voiding trialprior to discharge. Will DC Calderón and check a bladder scan and replace Calderón if needed. Otherwise hopefully okay for discharge today, fine from my standpoint and will arrange outpatient follow-up 02/11 Serum creatinine stable to slightly improved with Calderón catheter out. Await repeat bladder scan results from this morning and if unremarkable okay to discharge and I will arrange outpatient follow-upfrom our standpoint 02/12 Significant postvoid residual and required replacement Calderón catheter and did have postobstructive diuresis again. Hemodynamically stable, serum creatinine stable and electrolytes unremarkable. Plansare for discharge today with urology follow-up as an outpatient. I will order outpatient follow-up labs as well. DOMETER MECHANIC * Jerry Dutta MD - 02/11/2022 6:13 PM CST General Medicine Daily Progress SUBJECTIVE Patient is seen for Principal Problem: Hyperkalemia Acute renal failure Hyponatremia Urinary obstruction Hematuria Patient still has hematuria he denies any fever or chills. No chest pain or short of breath . Medicines reviewed History reviewed Labs reviewed 02/09/2022 Patient was seen for follow-up for acute renal failure, hyponatremia, hyperkalemia CHIO. Patient is doing better. His blood pressure. Creatinine is stable. Calderón catheter in place. Patient is complaining of pain in the urethra for Calderón catheter. 02/10/2022 Patient feels much better today. Creatinine is slightly elevated is 2.5. For was removed. Patient urinated 100 mL postvoid urine volume is less than 200. Denies any pain 02/11/2022 Patient is complaining of constipation. Received enema and had big bowel movement. Patient's bladder scan showed more than 600 mL residual urine. OBJECTIVE Vitals: 24hr Min/Max: Temp Min: 36.3 ??C (97.4 ??F) Max: 36.9 ??C (98.5 ??F) Pulse Min: 66 Max: 85 BP Min: 120/81 Max: 156/95 Resp Min: 18 Max: 20 SpO2 Min: 96 % Max: 100 % Most Recent : Vitals: 02/11/22 1550 BP: 138/84 Pulse: 79 Resp: 19 Temp: 36.9 ??C (98.5 ??F) SpO2: 100% I/O last 2 completed shifts: In: 490 [P.O.:490] Out: 7100 [Urine:7100] I/O this shift: In: 320 [P.O.:320] Out: 3350 [Urine:3350] Review of Systems Constitutional: Negative for chills and fever. Gastrointestinal: Negative for constipation. Physical Exam: General appearance: Not in acute distress lying comfortably in the bed Eyes: EOMI, FALLON, sclare non icteric Neck: supple, no nuchal ridigity, no gross carotid bruits appreciated Pharynx: No gross oral lesion, tongue midline, mucosa moist Lungs CTA Heart: [id number], no significant murmur or gallop Abd: +BS, Non Tender, Non distended, No gross hepatomegaly : Calderón catheter was removed Lower Ext: No gross edema, pedal artery pulses are palpable bilaterally Neuro: No new deficits appreciated Musculoskeletal: no gross joint erythema, edema, tenderness Skin: No new change Lab/Current Medication Review: reviewed Recent Results (from the past 24 hour(s)) Basic metabolic panel Collection Time: 02/11/22 7:17 AM Result Value Ref Range Sodium 132 (L) 135 - 145 mmol/L Potassium, pl 4.8 3.3 - 4.9 mmol/L Chloride 97 97 - 110 mmol/L CO2 24 22 - 32 mmol/L Anion gap 11 2 - 15 mmol/L BUN 39 (H) 8 - 25 mg/dL Creatinine 2.20 (H) 0.80 - 1.30 mg/dL Glucose 84 70 - 199 mg/dL Calcium 9.5 8.5 - 10.3 mg/dL eGFR Collection Time: 02/11/22 7:17 AM Result Value Ref Range eGFR 34 mL/min/1.73 m2 Current Facility-Administered Medications Medication Dose Route Frequency Provider Last Rate Last Admin acetaminophen (TYLENOL) tablet 650 mg 650 mg oral Q4H PRN Jerry Dutta MD 650 mg at 02/10/22 0451 albuterol HFA (PROVENTIL HFA,VENTOLIN HFA,PROAIR HFA) 90 mcg/actuation inhaler 2 puff 2 puff inhalation Q4H PRN (RT) Kyung Garcia MD bisacodyl EC (DULCOLAX EC) tablet 5 mg 5 mg oral Daily PRN Jerry Dutta MD 5 mg at 838 budesonide-formoteroL (SYMBICORT) 160-4.5 mcg/actuation inhaler 2 puff 2 puff inhalation BID (RT) Jo Toribio MD 2 puff at 02/11/22 0722 docusate sodium (COLACE) capsule 100 mg 100 mg oral BID Jerry Dutta MD 100 mg at 02/11/22 0838 enoxaparin (LOVENOX) syringe 40 mg 40 mg subcutaneous Daily-2100 Jerry Dutta MD 40 mg at 02/10/221956 HYDROcodone-acetaminophen (NORCO) 5-325 mg per tablet 1 tablet 1 tablet oral Q4H PRN Jerry Dutta MD lactulose 0.67 gram/mL oral solution 20 g 20 g oral Daily PRN Jerry Dutta MD 20 g at 02/11/22 1227 lidocaine (GLYDO) 2 % jelly 100 mg 5 mL urethral BID PRN Britney Summers MD 100 mg at 02/07/222057 LORazepam (ATIVAN) tablet 0.5 mg 0.5 mg oral Q6H PRN Britney Summers MD ondansetron (ZOFRAN) injection 4 mg 4 mg intravenous Q6H PRN Feliberto Munoz MD PARoxetine (PAXIL) tablet 30 mg 30 mg oral QAM Kyung Garcia MD 30 mg at 02/11/22 0840 polyethylene glycol (MIRALAX) packet 17 g 17 g oral Daily Jerry Dutta MD 17 g at 02/11/22 0838 tamsulosin (FLOMAX) extended release capsule 0.4 mg 0.4 mg oral Nightly Kyung Garcia MD 0.4 mg at 02/10/221956 venlafaxine XR (EFFEXOR-XR) extended release capsule 37.5 mg 37.5 mg oral Daily Kyung Garcia MD37.5 mg at 02/11/22 0838 A/P: 02/07 Patient still has hematuria Creatinine is 2.2 Potassium is 5.2 Sodium is 131, asymptomatic Patient complaining of constipation with normal exam Plan Start him on low-potassium diet Fluid restriction to 1500 Nancy per day Consult urology for hematuria and obstructive uropathy Avoid any nephrotoxic drugs and follow kidney function daily Decrease IV fluids GI DVT prophylaxis A.m. labs 02/08 Patient still with hematuria His creatinine is 2.2 Potassium is 4.6 Sodium is 131, asymptomatic Chest is clear Plan Patient is currently on low-potassium diet Continue with fluid restriction Avoid any nephrotoxic drugs and follow kidney function daily Gentle IV fluids Start Advair DVT GI prophylaxis A.m. labs Assessment and plan 02/09/2022 Principal Problem: Hyperkalemia Resolved Problems: No resolved hospital problems. Acute renal failure Hyponatremia Urinary obstruction Hematuria Plan 02/09/22 Acute renal failure secondary to obstructive uropathy. Improving. Hyperkalemia resolved. Nephrologyis following. Creatinine is stable at 2.2. Potassium 4.6. Hyponatremia resolved sodium is 138. Patient is on sodium tablet and fluid restriction. Calderón catheter in place. Continue Calderón catheter. urology consult placed. Continue Flomax. Added Tylenol and [place] for pain Plan 02/10/22 Acute renal failure secondary to obstructive uropathy. Improving. Hyperkalemia resolved. Nephrologyis following. Creatinine is is slightly elevated is 2.5. Nephrology is okay discharge.. Potassium 4.8. Hyponatremia resolved sodium is 136. Patient is on sodium tablet and fluid restriction. Nephrology discontinued sodium chloride tablets. Urology recommended voiding trial before discharge. Calderón catheter was removed. Patient urinated 100 mg and patient had residual urine 200 mL. Urology recommended to do bladder scan in every shift Will keep patient overnight and if if patient had adequate urine output with insignificant PVR we willdischarge patient tomorrow morning Continue Flomax. Constipation: Patient did not have a bowel movement is willing to have an enema. I order tap enema MDM low Plan 02/11/22 Acute renal failure secondary to obstructive uropathy. Improving. Hyperkalemia resolved. Nephrologyis following. Creatinine is is slightly better is 2.2. Nephrology is okay discharge.. Potassium 4.8. Hyponatremia: sodium is 132. Off sodium chloride tablets. Urinary retention: Patient had more than 600 residual urine volume after patient had bowel movement and voiding. Calderón catheter was placed patient had 1 L urine output. Calderón catheter placement was difficult and now patient is having some blood-stained urine. Will closely monitor overnight. Will repeat H&H tomorrow. Continue Flomax. Constipation: Patient received enema and bowel regimen and had bowel movement. If hematuria resolves possible discharge home tomorrow [facility] Moderate Voice recognition software MModal Fluency Direct may have been used dictate and transcribe this document. Ware [employer] variances may occur. Despite proofreading, typographical errors may occur. Jerry Dutta MD 02/11/2022 6:13 PM DOMETER MECHANIC * Tessie Nolan RD - 02/11/2022 12:43 PM CST Nutrition Assessment Reason for Assessment: Initial Nutrition Assessment and Length of Stay Encounter Date: 02/11/22 1:31 PM Patient is a 56 y.o. male. Admit Dx: Hyperkalemia [E87.5] Urinary retention [R33.9] Acute renal failure, unspecified acute renal failure type (HCC) [N17.9]. Admitted on 02/04/2022, current LOS is 7 days. Nutrition Diagnosis 1: Food and nutrition-related knowledge deficit Related to: Chronic illness/injury Evidenced by: Patient interview ASPEN Malnutrition Assessment: Date of completion (or initial diagnosis): 02/11/2022 Patient does not meet criteria for malnutrition based on ASPEN guidelines. Nutrition-focused physical exam (NFPE) findings: ASSESSMENT AND INTERVENTION/RECOMMENDATIONS: Pt is a 56 yo male w/ PMH chronic kidney disease, admitted 02/04/22 for hyperkalemia and acute kidney failure. Pt was seen for LOS x 7 days. Pt seemed to have some difficult recalling nutrition history. Pt reports a good appetite with no changes. PO intake per chart says 100%. Pt typically eats 3 meals a day. Pt reports changing diet to low potassium after doctor's visit 3 weeks ago. Pt could not recall typical meals eaten except for salad with greens, fruit, organic meat, nuts, and extra virgin olive oil. Pt also reports eating apples and pasta with margarine. Pt reports no changes in weight. Pt reports UBW of 180 lbs. CBW is 201 lbs. Last BM was 02/07/22. Per RN, pt used to give himself enemas twice weekly. Pt is on a bowel regimen. EDUCATION NEEDED/COMPLETED? Pt reported no education on potassium-containing foods other than a list provided. RD provided and reviewed Potassium Content of Foods handout from Nutrition Care Manual. Discussed portion sizes, food label reading, and high and low potassium foods. Pt reflected understanding. GOALS / MONITORING: Goals: Patient/caregiver able to teach back understanding of role of diet in disease process prior to discharge Interventions: Education, nutrition, [place] diet preferences within the limits of nutrition care order, Follow up per policy Monitoring and Evaluation: Plan of care, Discharge plans, Stool patterns, Diet- related questions Anthropometrics: Wt Readings from Last 10 Encounters: 02/04/22 91.4 kg (201 lb 8 oz) 01/22/22 91.4 kg (201 lb 9.6 oz) 01/19/22 90.5 kg (199 lb 8.3 oz) 11/25/21 88.9 kg (195 lb 14.4 oz) 09/24/21 89.3 kg (196 lb 12.8 oz) 06/04/21 91.1 kg (200 lb 12.8 oz) 05/30/21 90.3 kg (199 lb 1.6 oz) 05/28/21 88 kg (194 lb) 04/30/21 89.8 kg (197 lb 14.4 oz) 08/27/20 81.6 kg (180 lb) Anthropometrics Weight: 91.4 kg (201 lb 8 oz) Admission Weight : 91.4 kg Weight Change: 0.00 kg (0.00 lbs) Usual Body Weight: 81.6 kg (180 lb) (per pt interview) IBW/kg (Calculated) : 83.4 kg Height: 185.4 cm (6' 0.99 ) Weight in (lb) to have BMI = 25: 189.1 BMI (Calculated): 26.6 BMI Classification: BMI 25.0 - 29.9 Overweight Estimated Nutrition Needs: Calories Calculated Energy Needs Using Equations Weight Used for Equation Calculations (RD Determined): 91.4 kg (201 lb 8 oz) Weight: 91.4 kg (201 lb 8 oz) Height: 185.4 cm (6' 0.99 ) [place] Equation (Overweight or Obese Patients): 1788 Equation Chosen to Use by RD: [place] Activity Factor: 1.3 Total Energy Needs: 2324.4 kcal Total Energy Needs + Fever Factor: 2324.4 Protein Estimated Protein Needs Type of Weight Used for Estimated Protein : Current Protein Needs Based on g/k.6 Total Protein Estimated Needs (gm): 54.84 Fluid Estimated Fluid Needs Type of Weight Used for Estimated Fluid Needs: Current Fluid Needs Based on : 30 ml/kg Total Fluid Estimated Needs: 2742 Medications: Dulcolax. Miralax, Colace, Lactulose Lab Review: BUN 39, Creatinine 2.2, K 4.8, Na 132, 02/11/2022 Past Medical History: Diagnosis Date Anxiety Arthritis 1977 Asthma Cancer (CMS/HCC) (HCC) 2002 Chronic fatigue Constipation Depression OCD (obsessive compulsive disorder) Sleep apnea 2002 Thyroid disease 1999 Tuberculosis 1973 Past Surgical History: Procedure Laterality Date COLONOSCOPY 09/30/2017 Benign colon polyp FLEXIBLE SIGMOIDOSCOPY 01/12/2019 NAD KNEE SURGERY Dietary Orders (From admission, onward) Start Ordered 02/11/22 0939 Late Tray Diet Once (Routine) Comments: 2 prune juices please 02/11/22 0938 02/08/22 1343 Adult Diet Restricted; Low Potassium Diet effective now Question Answer Comment (MHB/MHE/SHELTER) Diet type Restricted Renal: Low Potassium 02/08/22 1343 02/06/22 0954 Diet message Once (Routine) Comments: Patient is requesting more fruit with trays. 02/06/22 0954 02/05/22 1658 Late Tray Diet Once (Routine) Comments: Please send 5 cups of grapes 02/05/22 1701 02/04/22 1711 Late Tray Diet Once (Routine) 02/04/22 1710 Nutrition Follow-Up : 02/16/22 (diet edu questions; BMs) Cosigned by Leisa Mendiola RD at 02/11/2022 4:23 PM SPEEDOMETER MECHANIC DOMETER MECHANIC DOMETER MECHANIC * JakeRaquelVidhi LAUNDERER HAND - 02/11/2022 12:22 PM CST Urology Progress Note Interval Summary: -Calderón catheter removed and tamsulosin continued. Post void residuals ranging from 144 to 379 initially. This morning post void residual reported to be 493 mL. Objective Recent Vitals(24hr Range): Vitals: 02/11/22 0300 02/11/22 0722 02/11/22 0746 02/11/22 1129 BP: 120/80 120/81 138/85 BP Location: Right arm Left arm Right arm Patient Position: HOB 30 degrees Sitting Pulse: 85 79 78 Resp: 20 20 18 Temp: 36.5 ??C (97.7 ??F) 36.7 ??C (98.1 ??F) 36.5 ??C (97.7 ??F) TempSrc: Oral Oral Oral SpO2: 98% 99% 99% 98% Weight: Height: I and Os: I/O last 3 completed shifts: In: 490 [P.O.:490] Out: 8200 [Urine:8200] I/O this shift: In: 320 [P.O.:320] Out: 300 [Urine:300] I/O last 2 completed shifts: In: 490 [P.O.:490] Out: 7100 [Urine:7100] I/O this shift: In: 320 [P.O.:320] Out: 300 [Urine:300] Physical exam: Physical Exam Vitals reviewed. Constitutional: Appearance: Normal appearance. HENT: Head: Normocephalic. Eyes: Conjunctiva/sclera: Conjunctivae normal. Pulmonary: Effort: Pulmonary effort is normal. Abdominal: General: There is no distension. Palpations: Abdomen is soft. Tenderness: There is no abdominal tenderness. Genitourinary: Comments: Urine in urinal is yellow Neurological: Mental Status: He is alert and oriented to person, place, and time. Psychiatric: Mood and Affect: Mood normal. Behavior: Behavior normal. Lab/Radiology/Diagnostic Review: Chem/LFT Lab History Some values may be hidden. Unless noted otherwise, only the newest values recorded on each date aredisplayed. Labs-Chem/LFT Latest Ref Range 02/08/22 02/09/22 02/10/22 02/11/22 Sodium 135 - 145 mmol/L 131 (A) 138 136 132 (A) Potassium Lvl Creatinine 0.80 - 1.30 mg/dL 2.20 (A) 2.20 (A) 2.50 (A) 2.20 (A) Bilirubin, total AST ALT CrCl- Actual Body Weight ([place]-Gault) 47.3 47.3 41.6 47.3 (A) Abnormal value Hematology Lab History Some values may be hidden. Unless noted otherwise, only the newest values recorded on each date aredisplayed. Labs - Hematology Latest Ref Range 02/04/22 02/05/22 02/07/22 02/10/22 WBC 3.8 - 9.9 K/cumm 6.0 12.3 (A) 10.9 (A) 7.8 Total Hb, POC 13.0 - 17.5 g/dL 12.4 (A) 12.1 (A) 13.3 13.6 Hct 38.9 - 50.3 % 38.8 (A) 36.4 (A) 38.2 (A) 39.7 Plt 150 - 400 K/cumm 258 234 234 227 Platelets Neutrophil abs 1.7 - 6.5 K/cumm 3.8 10.6 (A) 8.4 (A) 4.7 Lymphocytes, abs 0.8 - 3.3 K/cumm 1.4 1.0 1.2 1.9 (A) Abnormal value Principal Problem: Hyperkalemia Assessment : 56 y.o. male with urinary retention and gross hematuria post calderón catheter placement. Gross hematuria has resolved. He had calderón removed for void trial. Initially post void residual was reasonable. Most recent PVR was 493 mL. Patient examined and appears comfortable at this time. I discussed replacement of calderón catheter. He asked if we could hold off until he has BM. He reports typically is able to have BM daily and has been constipated for about 4 days. He feels inflamed in abdomen. He hasreceived oral laxative and will receive enema today. If post BM, PVR is still elevated, would recommend calderón replacement. Patient VU. Thank you for allowing us to participate in the care of this patient. For any questions or concerns, please refer to specialty portal to page appropriate provider senior education specialist. Raquel Joseph NP 02/11/2022 Cosigned by Dudley Cárdenas MD at 02/11/2022 6:30 PM SPEEDOMETER MECHANIC DOMETER MECHANIC DOMETER MECHANIC * Feliberto Munoz MD - 02/11/2022 9:45 AM CST Nephrology Daily Progress Subjective Reason for follow up acute kidney failure, hyperkalemia. Interval History: Feels well this morning, voided this morning without difficulty Objective Vitals: 24hr Min/Max: Temp Min: 36.3 ??C (97.4 ??F) Max: 37.1 ??C (98.7 ??F) Pulse Min: 66 Max: 88 BP Min: 120/81 Max: 156/95 Resp Min: 18 Max: 20 SpO2 Min: 96 % Max: 99 % Most Recent: Vitals: 02/11/22 0746 BP: 120/81 Pulse: 79 Resp: 20 Temp: 36.7 ??C (98.1 ??F) SpO2: 99% Physical Exam: Constitutional: Appears well-developed and well-nourished. Head: Normocephalic [...] dry. Psychiatric: Normal mood and affect. Assessment/Plan Principal Problem: Hyperkalemia Acute kidney failure, obstructive uropathy Acute kidney failure and hyperkalemia in the setting of obstructive uropathy. Asked to present to the ER yesterday for significant hyperkalemia. Met him for the 1st time yesterday in that setting. Calderón catheter placed with massive postobstructive diuresis. He is hemodynamically stable. Converted to LR but now somewhat hypernatremic and will revert back to normal saline. At this point we may be driving his urine output somewhat with his IV fluid rate and will decrease this to 75 mL/hour. If he continues to have massive urine output or is hypotensive will reassess. Potassium unremarkable this morning. Started on tamsulosin. Will plan to repeat labs in a.m. 02/06 Chemistry panel pending this morning. Very impressive postobstructive diuresis with over 13 L recorded yesterday. He remains hemodynamically stable and thus did decrease his replacement fluid rate yesterday. Will await chemistry panel adjust according this morning. Converted to normal saline again yesterday given mild hyponatremia. Hopefully will see continued improvement in kidney function with relief of obstruction. Mild hematuria likely secondary to prior stretching of bladder with tamponadeeffect now relieved by Calderón. Given his massive diuresis would plan to keep him hospitalized for now to monitor and repeat labs in a.m.. If blood pressure decreasing will increase IV fluid rate and adjust pending lab results Addendum, labs have returned with a sodium of 125. Placing him on oral fluid restriction and will repeat a chemistry panel this afternoon and start sodium chloride and potassium replacement 02/07/2022 Cutting back on IV fluids to 50 mL/hour. Putting him on a low-potassium diet. Serum sodium has improved to 131. Tightening fluid restriction to 1500 mL per day. Will need Urology consultation as wellfor his obstructive uropathy likely bladder outlet obstruction from enlarged prostate and will needoutpatient voiding trial. Also does have some hematuria likely from decompression of the bladder. Avoid hypotension and nephrotoxins. Serum creatinine at 2.2 and probably close to baseline. Probably has underlying medical renal disease from longstanding obstruction. 02/08/22 Will discontinue IV fluids. Encourage oral fluids/food. Continue Calderón catheter. On tamsulosin as well. Will need Urology consultation. Serum creatinine stabilizing around 2.2 which may be his baseline. Continue to monitor for volume depletion since may have post obstructive diuresis. 02.09 Continues to have postobstructive diuresis but urine volumes have been decreasing, hyponatremia also improved, currently off fluid restriction but would continue sodium chloride tablets. Serum creatinine stable and possibly at baseline renal function. Discussed with him that he will need to have his Calderón catheter in place for now and will need to be evaluated by Urology, likely significant BPH, continue tamsulosin. 02/10 Serum creatinine stable, hopefully will see some improvement over time with relief of obstruction. Electrolytes unremarkable. Will discontinue sodium chloride tabs. Urology recommending voiding trialprior to discharge. Will DC Calderón and check a bladder scan and replace Calderón if needed. Otherwise hopefully okay for discharge today, fine from my standpoint and will arrange outpatient follow-up 02/11 Serum creatinine stable to slightly improved with Calderón catheter out. Await repeat bladder scan results from this morning and if unremarkable okay to discharge and I will arrange outpatient follow-upfrom our standpoint DOMETER MECHANIC * Jerry Dutta MD - 02/10/2022 7:27 PM CST General Medicine Daily Progress SUBJECTIVE Patient is seen for Principal Problem: Hyperkalemia Acute renal failure Hyponatremia Urinary obstruction Hematuria Patient still has hematuria he denies any fever or chills. No chest pain or short of breath . Medicines reviewed History reviewed Labs reviewed 02/09/2022 Patient was seen for follow-up for acute renal failure, hyponatremia, hyperkalemia CHIO. Patient is doing better. His blood pressure. Creatinine is stable. Calderón catheter in place. Patient is complaining of pain in the urethra for Calderón catheter. 02/10/2022 Patient feels much better today. Creatinine is slightly elevated is 2.5. For was removed. Patient urinated 100 mL postvoid urine volume is less than 200. Denies any pain OBJECTIVE Vitals: 24hr Min/Max: Temp Min: 36.3 ??C (97.4 ??F) Max: 37.1 ??C (98.7 ??F) Pulse Min: 74 Max: 90 BP Min: 106/68 Max: 131/80 Resp Min: 18 Max: 20 SpO2 Min: 97 % Max: 100 % Most Recent : Vitals: 02/10/22 1500 BP: 131/80 Pulse: 88 Resp: 20 Temp: 36.6 ??C (97.8 ??F) SpO2: 98% I/O last 2 completed shifts: In: 490 [P.O.:490] Out: 4300 [Urine:4300] No intake/output data recorded. Review of Systems Constitutional: Negative for chills and fever. Gastrointestinal: Negative for constipation. Physical Exam: General appearance: Not in acute distress lying comfortably in the bed Eyes: EOMI, FALLON, sclare non icteric Neck: supple, no nuchal ridigity, no gross carotid bruits appreciated Pharynx: No gross oral lesion, tongue midline, mucosa moist Lungs CTA Heart: [id number], no significant murmur or gallop Abd: +BS, Non Tender, Non distended, No gross hepatomegaly : Calderón catheter was removed Lower Ext: No gross edema, pedal artery pulses are palpable bilaterally Neuro: No new deficits appreciated Musculoskeletal: no gross joint erythema, edema, tenderness Skin: No new change Lab/Current Medication Review: reviewed Recent Results (from the past 24 hour(s)) Basic metabolic panel Collection Time: 02/10/22 5:00 AM Result Value Ref Range Sodium 136 135 - 145 mmol/L Potassium, pl 4.8 3.3 - 4.9 mmol/L Chloride 101 97 - 110 mmol/L CO2 24 22 - 32 mmol/L Anion gap 11 2 - 15 mmol/L BUN 39 (H) 8 - 25 mg/dL Creatinine 2.50 (H) 0.80 - 1.30 mg/dL Glucose 94 70 - 199 mg/dL Calcium 9.5 8.5 - 10.3 mg/dL CBC with auto differential Collection Time: 02/10/22 5:00 AM Result Value Ref Range WBC 7.8 3.8 - 9.9 K/cumm Hgb 13.6 13.0 - 17.5 g/dL Hct 39.7 38.9 - 50.3 % Plt 227 150 - 400 K/cumm MPV 10.2 9.1 - 12.3 fL RBC 4.42 4.30 - 5.80 M/cumm MCV 89.8 81.3 - 96.4 fL MCH 30.8 27.1 - 33.3 pg MCHC 34.3 32.3 - 35.7 g/dL RDW CV 12.5 11.1 - 14.9 % RDW SD 41.1 35.7 - 48.1 fL NRBC abs 0.00 0.00 - 0.01 K/cumm Differential, auto Collection Time: 02/10/22 5:00 AM Result Value Ref Range Neutrophil abs 4.7 1.7 - 6.5 K/cumm Imm gran abs 0.0 0.0 - 0.1 K/cumm Lymphocyte abs 1.9 0.8 - 3.3 K/cumm Monocyte abs 0.7 0.2 - 0.8 K/cumm Eosinophil abs 0.4 0.0 - 0.5 K/cumm Basophil abs 0.1 0.0 - 0.1 K/cumm Neutrophil pct 60.0 % Imm gran pct 0.5 % Lymphocyte pct 24.8 % Monocyte pct 8.8 % Eosinophil pct 4.5 % Basophil pct 1.4 % eGFR Collection Time: 02/10/22 5:00 AM Result Value Ref Range eGFR 29 mL/min/1.73 m2 Current Facility-Administered Medications Medication Dose Route Frequency Provider Last Rate Last Admin acetaminophen (TYLENOL) tablet 650 mg 650 mg oral Q4H PRN Jerry Dutta MD 650 mg at 02/10/22 0451 albuterol HFA (PROVENTIL HFA,VENTOLIN HFA,PROAIR HFA) 90 mcg/actuation inhaler 2 puff 2 puff inhalation Q4H PRN (RT) Kyung Garcia MD bisacodyl EC (DULCOLAX EC) tablet 5 mg 5 mg oral Daily PRN Jerry Dutta MD 5 mg at 647 budesonide-formoteroL (SYMBICORT) 160-4.5 mcg/actuation inhaler 2 puff 2 puff inhalation BID (RT) Jo Toribio MD 2 puff at 02/10/22 0753 docusate sodium (COLACE) capsule 100 mg 100 mg oral BID Jerry Dutta MD 100 mg at 02/10/22 0857 enoxaparin (LOVENOX) syringe 40 mg 40 mg subcutaneous Daily-2100 Jerry Dutta MD 40 mg at 02/09/22 1924 HYDROcodone-acetaminophen (NORCO) 5-325 mg per tablet 1 tablet 1 tablet oral Q4H PRN Jerry Dutta MD lidocaine (GLYDO) 2 % jelly 100 mg 5 mL urethral BID PRN Britney Summers MD 100 mg at 02/07/222057 LORazepam (ATIVAN) tablet 0.5 mg 0.5 mg oral Q6H PRN Britney Summers MD ondansetron (ZOFRAN) injection 4 mg 4 mg intravenous Q6H PRN Feliberto Munoz MD PARoxetine (PAXIL) tablet 30 mg 30 mg oral QAM Kyung Garcia MD 30 mg at 02/10/22 08 polyethylene glycol (MIRALAX) packet 17 g 17 g oral Daily Jerry Dutta MD 17 g at 02/10/22 0858 tamsulosin (FLOMAX) extended release capsule 0.4 mg 0.4 mg oral Nightly Kyung Garcia MD 0.4 mg at 02/09/221924 venlafaxine XR (EFFEXOR-XR) extended release capsule 37.5 mg 37.5 mg oral Daily Kyung Garcia MD37.5 mg at 02/10/22 0857 A/P: 02/07 Patient still has hematuria Creatinine is 2.2 Potassium is 5.2 Sodium is 131, asymptomatic Patient complaining of constipation with normal exam Plan Start him on low-potassium diet Fluid restriction to 1500 Nancy per day Consult urology for hematuria and obstructive uropathy Avoid any nephrotoxic drugs and follow kidney function daily Decrease IV fluids GI DVT prophylaxis A.m. labs 02/08 Patient still with hematuria His creatinine is 2.2 Potassium is 4.6 Sodium is 131, asymptomatic Chest is clear Plan Patient is currently on low-potassium diet Continue with fluid restriction Avoid any nephrotoxic drugs and follow kidney function daily Gentle IV fluids Start Advair DVT GI prophylaxis A.m. labs Assessment and plan 02/09/2022 Principal Problem: Hyperkalemia Resolved Problems: No resolved hospital problems. Acute renal failure Hyponatremia Urinary obstruction Hematuria Plan 02/09/22 Acute renal failure secondary to obstructive uropathy. Improving. Hyperkalemia resolved. Nephrologyis following. Creatinine is stable at 2.2. Potassium 4.6. Hyponatremia resolved sodium is 138. Patient is on sodium tablet and fluid restriction. Calderón catheter in place. Continue Calderón catheter. urology consult placed. Continue Flomax. Added Tylenol and Moseley for pain Plan 02/10/22 Acute renal failure secondary to obstructive uropathy. Improving. Hyperkalemia resolved. Nephrologyis following. Creatinine is is slightly elevated is 2.5. Nephrology is okay discharge.. Potassium 4.8. Hyponatremia resolved sodium is 136. Patient is on sodium tablet and fluid restriction. Nephrology discontinued sodium chloride tablets. Urology recommended voiding trial before discharge. Calderón catheter was removed. Patient urinated 100 mg and patient had residual urine 200 mL. Urology recommended to do bladder scan in every shift Will keep patient overnight and if if patient had adequate urine output with insignificant PVR we willdischarge patient tomorrow morning Continue Flomax. Constipation: Patient did not have a bowel movement is willing to have an enema. I order tap enema MDM low Voice recognition software MModal Fluency Direct may have been used dictate and transcribe this document. [employer] variances may occur. Despite proofreading, typographical errors may occur. Jerry Dutta MD 02/10/2022 7:27 PM DOMETER MECHANIC * Jake, Raquel Saxena NP - 02/10/2022 1:39 PM CST Urology Progress Note Interval Summary: -Per patient, calderón removed about 5 minutes ago for void trial. Objective Recent Vitals(24hr Range): Vitals: 02/09/22 2353 02/10/22 0325 02/10/22 0753 02/10/22 1100 BP: 106/68 122/81 118/79 129/82 BP Location: Right arm Right arm Right arm Right arm Patient Position: Lying Lying Pulse: 81 87 74 81 Resp: 20 18 20 18 Temp: 36.3 ??C (97.4 ??F) 36.5 ??C (97.7 ??F) 36.8 ??C (98.2 ??F) 37.1 ??C (98.7 ??F) TempSrc: Oral Oral Oral Oral SpO2: 98% 97% 99% 99% Weight: Height: I and Os: I/O last 3 completed shifts: In: 240 [P.O.:240] Out: 3925 [Urine:3925] I/O this shift: In: 490 [P.O.:490] Out: 2300 [Urine:2300] I/O last 2 completed shifts: In: 240 [P.O.:240] Out: 2475 [Urine:2475] I/O this shift: In: 490 [P.O.:490] Out: 2300 [Urine:2300] Physical exam: Physical Exam Vitals reviewed. Constitutional: Appearance: Normal appearance. HENT: Head: Normocephalic. Eyes: Conjunctiva/sclera: Conjunctivae normal. Pulmonary: Effort: Pulmonary effort is normal. Neurological: Mental Status: He is alert and oriented to person, place, and time. Psychiatric: Mood and Affect: Mood normal. Behavior: Behavior normal. Lab/Radiology/Diagnostic Review: Chem/LFT Lab History Some values may be hidden. Unless noted otherwise, only the newest values recorded on each date aredisplayed. Labs-Chem/LFT Latest Ref Range 02/07/22 02/08/22 02/09/22 02/10/22 Sodium 135 - 145 mmol/L 131 (A) 131 (A) 138 136 Potassium Lvl Creatinine 0.80 - 1.30 mg/dL 2.20 (A) 2.20 (A) 2.20 (A) 2.50 (A) Bilirubin, total AST ALT CrCl- Actual Body Weight (Cockcroft-Gault) 47.3 47.3 47.3 41.6 (A) Abnormal value Hematology Lab History Some values may be hidden. Unless noted otherwise, only the newest values recorded on each date aredisplayed. Labs - Hematology Latest Ref Range 02/04/22 02/05/22 02/07/22 02/10/22 WBC 3.8 - 9.9 K/cumm 6.0 12.3 (A) 10.9 (A) 7.8 Total Hb, POC 13.0 - 17.5 g/dL 12.4 (A) 12.1 (A) 13.3 13.6 Hct 38.9 - 50.3 % 38.8 (A) 36.4 (A) 38.2 (A) 39.7 Plt 150 - 400 K/cumm 258 234 234 227 Platelets Neutrophil abs 1.7 - 6.5 K/cumm 3.8 10.6 (A) 8.4 (A) 4.7 Lymphocytes, abs 0.8 - 3.3 K/cumm 1.4 1.0 1.2 1.9 (A) Abnormal value Principal Problem: Hyperkalemia Assessment : 56 y.o. male with urinary retention and gross hematuria post calderón catheter placement. Gross hematuria likely related to post decompression hematuria vs bleeding from prostate. Hematuria resolved andpatient had calderón removed today for void trial. He underwent CT yesterday which showed bladder wallthickening and mild hydro although improved from previous renal US. Plan Continue tamsulosin. Please obtain post void residual or bladder scan if he feels urge to void but cannot. Will arrange outpatient cystoscopy. Thank you for allowing us to participate in the care of this patient. For any questions or concerns, please refer to specialty portal to page appropriate provider senior education specialist. Raquel Joseph NP 02/10/2022 Cosigned by Dudley Cárdenas MD at 02/11/2022 6:36 PM SPEEDOMETER MECHANIC DOMETER MECHANIC DOMETER MECHANIC * Feliberto Munoz MD - 02/10/2022 10:45 AM CST Nephrology Daily Progress Subjective Reason for follow up acute kidney failure, hyperkalemia. Interval History: Feeling well, no new issues Objective Vitals: 24hr Min/Max: Temp Min: 36.3 ??C (97.4 ??F) Max: 37 ??C (98.6 ??F) Pulse Min: 74 Max: 108 BP Min: 103/69 Max: 129/84 Resp Min: 18 Max: 20 SpO2 Min: 96 % Max: 100 % Most Recent: Vitals: 02/10/22 0753 BP: 118/79 Pulse: 74 Resp: 20 Temp: 36.8 ??C (98.2 ??F) SpO2: 99% Physical Exam: Constitutional: Appears well-developed and well-nourished. Head: Normocephalic [...] dry. Psychiatric: Normal mood and affect. Assessment/Plan Principal Problem: Hyperkalemia Acute kidney failure, obstructive uropathy Acute kidney failure and hyperkalemia in the setting of obstructive uropathy. Asked to present to the ER yesterday for significant hyperkalemia. Met him for the 1st time yesterday in that setting. Calderón catheter placed with massive postobstructive diuresis. He is hemodynamically stable. Converted to LR but now somewhat hypernatremic and will revert back to normal saline. At this point we may be driving his urine output somewhat with his IV fluid rate and will decrease this to 75 mL/hour. If he continues to have massive urine output or is hypotensive will reassess. Potassium unremarkable this morning. Started on tamsulosin. Will plan to repeat labs in a.m. 02/06 Chemistry panel pending this morning. Very impressive postobstructive diuresis with over 13 L recorded yesterday. He remains hemodynamically stable and thus did decrease his replacement fluid rate yesterday. Will await chemistry panel adjust according this morning. Converted to normal saline again yesterday given mild hyponatremia. Hopefully will see continued improvement in kidney function with relief of obstruction. Mild hematuria likely secondary to prior stretching of bladder with tamponadeeffect now relieved by Calderón. Given his massive diuresis would plan to keep him hospitalized for now to monitor and repeat labs in a.m.. If blood pressure decreasing will increase IV fluid rate and adjust pending lab results Addendum, labs have returned with a sodium of 125. Placing him on oral fluid restriction and will repeat a chemistry panel this afternoon and start sodium chloride and potassium replacement 02/07/2022 Cutting back on IV fluids to 50 mL/hour. Putting him on a low-potassium diet. Serum sodium has improved to 131. Tightening fluid restriction to 1500 mL per day. Will need Urology consultation as wellfor his obstructive uropathy likely bladder outlet obstruction from enlarged prostate and will needoutpatient voiding trial. Also does have some hematuria likely from decompression of the bladder. Avoid hypotension and nephrotoxins. Serum creatinine at 2.2 and probably close to baseline. Probably has underlying medical renal disease from longstanding obstruction. 02/08/22 Will discontinue IV fluids. Encourage oral fluids/food. Continue Calderón catheter. On tamsulosin as well. Will need Urology consultation. Serum creatinine stabilizing around 2.2 which may be his baseline. Continue to monitor for volume depletion since may have post obstructive diuresis. 02.09 Continues to have postobstructive diuresis but urine volumes have been decreasing, hyponatremia also improved, currently off fluid restriction but would continue sodium chloride tablets. Serum creatinine stable and possibly at baseline renal function. Discussed with him that he will need to have his Calderón catheter in place for now and will need to be evaluated by Urology, likely significant BPH, continue tamsulosin. 02/10 Serum creatinine stable, hopefully will see some improvement over time with relief of obstruction. Electrolytes unremarkable. Will discontinue sodium chloride tabs. Urology recommending voiding trialprior to discharge. Will DC Calderón and check a bladder scan and replace Calderón if needed. Otherwise hopefully okay for discharge today, fine from my standpoint and will arrange outpatient follow-up DOMETER MECHANIC * Jerry Dutta MD - 02/09/2022 1:17 PM CST General Medicine Daily Progress SUBJECTIVE Patient is seen for Principal Problem: Hyperkalemia Acute renal failure Hyponatremia Urinary obstruction Hematuria Patient still has hematuria he denies any fever or chills. No chest pain or short of breath . Medicines reviewed History reviewed Labs reviewed 02/09/2022 Patient was seen for follow-up for acute renal failure, hyponatremia, hyperkalemia CHIO. Patient is doing better. His blood pressure. Creatinine is stable. Calderón catheter in place. Patient is complaining of pain in the urethra for Calderón catheter. OBJECTIVE Vitals: 24hr Min/Max: Temp Min: 36.5 ??C (97.7 ??F) Max: 36.8 ??C (98.2 ??F) Pulse Min: 71 Max: 108 BP Min: 103/69 Max: 147/89 Resp Min: 18 Max: 20 SpO2 Min: 96 % Max: 100 % Most Recent : Vitals: 02/09/22 1054 BP: 103/69 Pulse: 108 Resp: 20 Temp: 36.7 ??C (98 ??F) SpO2: 96% I/O last 2 completed shifts: In: - Out: 6150 [Urine:6150] I/O this shift: In: - Out: 675 [Urine:675] Review of Systems Constitutional: Negative for chills and fever. Gastrointestinal: Negative for constipation. Physical Exam: General appearance: Not in acute distress lying comfortably in the bed Eyes: EOMI, FALLON, sclare non icteric Neck: supple, no nuchal ridigity, no gross carotid bruits appreciated Pharynx: No gross oral lesion, tongue midline, mucosa moist Lungs CTA Heart: [id number], no significant murmur or gallop Abd: +BS, Non Tender, Non distended, No gross hepatomegaly : Calderón cath in place draining blood stained urine Lower Ext: No gross edema, pedal artery pulses are palpable bilaterally Neuro: No new deficits appreciated Musculoskeletal: no gross joint erythema, edema, tenderness Skin: No new change Lab/Current Medication Review: reviewed Recent Results (from the past 24 hour(s)) Basic metabolic panel Collection Time: 02/09/22 5:43 AM Result Value Ref Range Sodium 138 135 - 145 mmol/L Potassium, pl 4.6 3.3 - 4.9 mmol/L Chloride 103 97 - 110 mmol/L CO2 25 22 - 32 mmol/L Anion gap 10 2 - 15 mmol/L BUN 34 (H) 8 - 25 mg/dL Creatinine 2.20 (H) 0.80 - 1.30 mg/dL Glucose 95 70 - 199 mg/dL Calcium 9.6 8.5 - 10.3 mg/dL eGFR Collection Time: 02/09/22 5:43 AM Result Value Ref Range eGFR 34 mL/min/1.73 m2 Current Facility-Administered Medications Medication Dose Route Frequency Provider Last Rate Last Admin acetaminophen (TYLENOL) tablet 650 mg 650 mg oral Q4H PRN Jerry Dutta MD 650 mg at 02/09/22 1244 albuterol HFA (PROVENTIL HFA,VENTOLIN HFA,PROAIR HFA) 90 mcg/actuation inhaler 2 puff 2 puff inhalation Q4H PRN (RT) Kyung Garcia MD budesonide-formoteroL (SYMBICORT) 160-4.5 mcg/actuation inhaler 2 puff 2 puff inhalation BID (RT) Jo Toribio MD 2 puff at 02/09/22 0806 HYDROcodone-acetaminophen (NORCO) 5-325 mg per tablet 1 tablet 1 tablet oral Q4H PRN Jerry Dutta MD lidocaine (GLYDO) 2 % jelly 100 mg 5 mL urethral BID PRN Britney Summers MD 100 mg at 02/07/222057 LORazepam (ATIVAN) tablet 0.5 mg 0.5 mg oral Q6H PRN Britney Summers MD ondansetron (ZOFRAN) injection 4 mg 4 mg intravenous Q6H PRN Feliberto Munoz MD PARoxetine (PAXIL) tablet 30 mg 30 mg oral QAM Kyung Garcia MD 30 mg at 02/09/22 0948 sodium chloride tablet 1 g 1 g oral TID with meals Feliberto Munoz MD 1 g at 02/09/22 1244 tamsulosin (FLOMAX) extended release capsule 0.4 mg 0.4 mg oral Nightly Kyung Garcia MD 0.4 mg at 02/08/22 2108 venlafaxine XR (EFFEXOR-XR) extended release capsule 37.5 mg 37.5 mg oral Daily Kyung Garcia MD37.5 mg at 02/09/22 0948 A/P: 02/07 Patient still has hematuria Creatinine is 2.2 Potassium is 5.2 Sodium is 131, asymptomatic Patient complaining of constipation with normal exam Plan Start him on low-potassium diet Fluid restriction to 1500 Nancy per day Consult urology for hematuria and obstructive uropathy Avoid any nephrotoxic drugs and follow kidney function daily Decrease IV fluids GI DVT prophylaxis A.m. labs 02/08 Patient still with hematuria His creatinine is 2.2 Potassium is 4.6 Sodium is 131, asymptomatic Chest is clear Plan Patient is currently on low-potassium diet Continue with fluid restriction Avoid any nephrotoxic drugs and follow kidney function daily Gentle IV fluids Start Advair DVT GI prophylaxis A.m. labs Assessment and plan 02/09/2022 Principal Problem: Hyperkalemia Resolved Problems: No resolved hospital problems. Acute renal failure Hyponatremia Urinary obstruction Hematuria Plan Acute renal failure secondary to obstructive uropathy. Improving. Hyperkalemia resolved. Nephrologyis following. Creatinine is stable at 2.2. Potassium 4.6. Hyponatremia resolved sodium is 138. Patient is on sodium tablet and fluid restriction. Calderón catheter in place. Continue Calderón catheter. urology consult placed. Continue Flomax. Added Tylenol and Moseley for pain MDM moderate Voice recognition software MModal Fluency Direct may have been used dictate and transcribe this document. [employer] variances may occur. Despite proofreading, typographical errors may occur. Jerry Dutta MD 02/09/2022 1:17 PM DOMETER MECHANIC * Pancho Morelos MD - 02/09/2022 12:03 PM CST Nephrology Daily Progress Subjective Reason for follow up acute kidney failure, hyperkalemia. Interval History: Complains of Calderón catheter irritating him but otherwise feels well. P.o. intake improved. Had 6 L urine output through his Calderón Objective Vitals: 24hr Min/Max: Temp Min: 36.5 ??C (97.7 ??F) Max: 36.8 ??C (98.2 ??F) Pulse Min: 71 Max: 108 BP Min: 103/69 Max: 147/89 Resp Min: 18 Max: 20 SpO2 Min: 96 % Max: 100 % Most Recent: Vitals: 02/09/22 1054 BP: 103/69 Pulse: 108 Resp: 20 Temp: 36.7 ??C (98 ??F) SpO2: 96% Physical Exam: Constitutional: Appears well-developed and well-nourished. Head: Normocephalic [...] dry. Psychiatric: Normal mood and affect. Assessment/Plan Principal Problem: Hyperkalemia Acute kidney failure, obstructive uropathy Acute kidney failure and hyperkalemia in the setting of obstructive uropathy. Asked to present to the ER yesterday for significant hyperkalemia. Met him for the 1st time yesterday in that setting. Calderón catheter placed with massive postobstructive diuresis. He is hemodynamically stable. Converted to LR but now somewhat hypernatremic and will revert back to normal saline. At this point we may be driving his urine output somewhat with his IV fluid rate and will decrease this to 75 mL/hour. If he continues to have massive urine output or is hypotensive will reassess. Potassium unremarkable this morning. Started on tamsulosin. Will plan to repeat labs in a.m. 02/06 Chemistry panel pending this morning. Very impressive postobstructive diuresis with over 13 L recorded yesterday. He remains hemodynamically stable and thus did decrease his replacement fluid rate yesterday. Will await chemistry panel adjust according this morning. Converted to normal saline again yesterday given mild hyponatremia. Hopefully will see continued improvement in kidney function with relief of obstruction. Mild hematuria likely secondary to prior stretching of bladder with tamponadeeffect now relieved by Calderón. Given his massive diuresis would plan to keep him hospitalized for now to monitor and repeat labs in a.m.. If blood pressure decreasing will increase IV fluid rate and adjust pending lab results Addendum, labs have returned with a sodium of 125. Placing him on oral fluid restriction and will repeat a chemistry panel this afternoon and start sodium chloride and potassium replacement 02/07/2022 Cutting back on IV fluids to 50 mL/hour. Putting him on a low-potassium diet. Serum sodium has improved to 131. Tightening fluid restriction to 1500 mL per day. Will need Urology consultation as wellfor his obstructive uropathy likely bladder outlet obstruction from enlarged prostate and will needoutpatient voiding trial. Also does have some hematuria likely from decompression of the bladder. Avoid hypotension and nephrotoxins. Serum creatinine at 2.2 and probably close to baseline. Probably has underlying medical renal disease from longstanding obstruction. 02/08/22 Will discontinue IV fluids. Encourage oral fluids/food. Continue Calderón catheter. On tamsulosin as well. Will need Urology consultation. Serum creatinine stabilizing around 2.2 which may be his baseline. Continue to monitor for volume depletion since may have post obstructive diuresis. 02.09 Continues to have postobstructive diuresis but urine volumes have been decreasing, hyponatremia also improved, currently off fluid restriction but would continue sodium chloride tablets. Serum creatinine stable and possibly at baseline renal function. Discussed with him that he will need to have his Calderón catheter in place for now and will need to be evaluated by Urology, likely significant BPH, continue tamsulosin. DOMETER MECHANIC * Lonnie Bergeron - 02/08/2022 11:53 AM CST 02/08/22 1100 Clinical Encounter Type Visited With Patient Response Type Continuing visit Interventions Interventions Offer emotional support DOMETER MECHANIC * Jo Toribio MD - 02/08/2022 11:08 AM CST General Medicine Daily Progress SUBJECTIVE Patient is seen for Principal Problem: Hyperkalemia Acute renal failure Hyponatremia Urinary obstruction Hematuria Patient still has hematuria he denies any fever or chills. No chest pain or short of breath . Medicines reviewed History reviewed Labs reviewed OBJECTIVE Vitals: 24hr Min/Max: Temp Min: 36.3 ??C (97.3 ??F) Max: 37.1 ??C (98.7 ??F) Pulse Min: 61 Max: 79 BP Min: 124/80 Max: 159/95 Resp Min: 16 Max: 19 SpO2 Min: 97 % Max: 99 % Most Recent : Vitals: 02/08/22 0900 BP: Pulse: 68 Resp: Temp: SpO2: I/O last 2 completed shifts: In: 1000 [I.V.:1000] Out: 2775 [Urine:2775] I/O this shift: In: - Out: 3500 [Urine:3500] Review of Systems Constitutional: Negative for chills and fever. Gastrointestinal: Negative for constipation. Physical Exam: Eyes: EOMI, FALLON, sclare non icteric Neck: supple, no nuchal ridigity, no gross carotid bruits appreciated Pharynx: No gross oral lesion, tongue midline, mucosa moist Lungs CTA Heart: [id number], no significant murmur or gallop Abd: +BS, Non Tender, Non distended, No gross hepatomegaly : Calderón cath in place Lower Ext: No gross edema, pedal artery pulses are palpable bilaterally Neuro: No new deficits appreciated Musculoskeletal: no gross joint erythema, edema, tenderness Skin: No new change Lab/Current Medication Review: Recent Results (from the past 24 hour(s)) Basic metabolic panel Collection Time: 02/08/22 4:44 AM Result Value Ref Range Sodium 131 (L) 135 - 145 mmol/L Potassium, pl 4.6 3.3 - 4.9 mmol/L Chloride 100 97 - 110 mmol/L CO2 22 22 - 32 mmol/L Anion gap 9 2 - 15 mmol/L BUN 28 (H) 8 - 25 mg/dL Creatinine 2.20 (H) 0.80 - 1.30 mg/dL Glucose 91 70 - 199 mg/dL Calcium 9.7 8.5 - 10.3 mg/dL eGFR Collection Time: 02/08/22 4:44 AM Result Value Ref Range eGFR 34 mL/min/1.73 m2 Current Facility-Administered Medications Medication Dose Route Frequency Provider Last Rate Last Admin albuterol HFA (PROVENTIL HFA,VENTOLIN HFA,PROAIR HFA) 90 mcg/actuation inhaler 2 puff 2 puff inhalation Q4H PRN (RT) Kyung Garcia MD lidocaine (GLYDO) 2 % jelly 100 mg 5 mL urethral BID PRN Britney Summers MD 100 mg at 02/07/222057 LORazepam (ATIVAN) tablet 0.5 mg 0.5 mg oral Q6H PRN Britney Summers MD ondansetron (ZOFRAN) injection 4 mg 4 mg intravenous Q6H PRN Feliberto Munoz MD PARoxetine (PAXIL) tablet 30 mg 30 mg oral QAM Kyung Garcia MD 30 mg at 02/08/22 0821 sodium chloride 0.9% infusion 50 mL/hr intravenous Continuous Leonardo Cristina MD 50 mL/hr at 02/07/22 1638 50 mL/hr at 02/07/22 1638 sodium chloride tablet 1 g 1 g oral TID with meals Feliberto Munoz MD 1 g at 02/08/22 0821 tamsulosin (FLOMAX) extended release capsule 0.4 mg 0.4 mg oral Nightly Kyung Garcia MD 0.4 mg at 02/07/222058 venlafaxine XR (EFFEXOR-XR) extended release capsule 37.5 mg 37.5 mg oral Daily Kyung Garcia MD37.5 mg at 02/08/22 0821 A/P: 02/07 Patient still has hematuria Creatinine is 2.2 Potassium is 5.2 Sodium is 131, asymptomatic Patient complaining of constipation with normal exam Plan Start him on low-potassium diet Fluid restriction to 1500 Nancy per day Consult urology for hematuria and obstructive uropathy Avoid any nephrotoxic drugs and follow kidney function daily Decrease IV fluids GI DVT prophylaxis A.m. labs 02/08 Patient still with hematuria His creatinine is 2.2 Potassium is 4.6 Sodium is 131, asymptomatic Chest is clear Plan Patient is currently on low-potassium diet Continue with fluid restriction Avoid any nephrotoxic drugs and follow kidney function daily Gentle IV fluids Start Advair DVT GI prophylaxis A.m. labs MDM moderate Principal Problem: Hyperkalemia Resolved Problems: No resolved hospital problems. Acute renal failure Hyponatremia Urinary obstruction Hematuria Voice recognition software [employer] may have been used dictate and transcribe this document. [employer] variances may occur. Despite proofreading, typographical errors may occur. Jo Toribio MD 02/08/2022 11:08 AM DOMETER MECHANIC * Leonardo Cristina MD - 02/08/2022 9:51 AM CST Nephrology Daily Progress Subjective Reason for follow up acute kidney failure, hyperkalemia. Interval History: Had some bowel movement after enema. Continues to have Calderón catheter. Notes thathe is trying to eat and drink as possible. No nausea or vomiting. Objective Vitals: 24hr Min/Max: Temp Min: 36.3 ??C (97.3 ??F) Max: 37.1 ??C (98.7 ??F) Pulse Min: 61 Max: 79 BP Min: 124/80 Max: 159/95 Resp Min: 16 Max: 19 SpO2 Min: 97 % Max: 99 % Most Recent: Vitals: 02/08/22 0700 BP: 124/80 Pulse: 74 Resp: 18 Temp: 36.3 ??C (97.3 ??F) SpO2: 99% Physical Exam: Constitutional: Appears well-developed and well-nourished. Head: Normocephalic [...] dry. Psychiatric: Normal mood and affect. Assessment/Plan Principal Problem: Hyperkalemia Acute kidney failure, obstructive uropathy Acute kidney failure and hyperkalemia in the setting of obstructive uropathy. Asked to present to the ER yesterday for significant hyperkalemia. Met him for the 1st time yesterday in that setting. Calderón catheter placed with massive postobstructive diuresis. He is hemodynamically stable. Converted to LR but now somewhat hypernatremic and will revert back to normal saline. At this point we may be driving his urine output somewhat with his IV fluid rate and will decrease this to 75 mL/hour. If he continues to have massive urine output or is hypotensive will reassess. Potassium unremarkable this morning. Started on tamsulosin. Will plan to repeat labs in a.m. 02/06 Chemistry panel pending this morning. Very impressive postobstructive diuresis with over 13 L recorded yesterday. He remains hemodynamically stable and thus did decrease his replacement fluid rate yesterday. Will await chemistry panel adjust according this morning. Converted to normal saline again yesterday given mild hyponatremia. Hopefully will see continued improvement in kidney function with relief of obstruction. Mild hematuria likely secondary to prior stretching of bladder with tamponadeeffect now relieved by Calderón. Given his massive diuresis would plan to keep him hospitalized for now to monitor and repeat labs in a.m.. If blood pressure decreasing will increase IV fluid rate and adjust pending lab results Addendum, labs have returned with a sodium of 125. Placing him on oral fluid restriction and will repeat a chemistry panel this afternoon and start sodium chloride and potassium replacement 02/07/2022 Cutting back on IV fluids to 50 mL/hour. Putting him on a low-potassium diet. Serum sodium has improved to 131. Tightening fluid restriction to 1500 mL per day. Will need Urology consultation as wellfor his obstructive uropathy likely bladder outlet obstruction from enlarged prostate and will needoutpatient voiding trial. Also does have some hematuria likely from decompression of the bladder. Avoid hypotension and nephrotoxins. Serum creatinine at 2.2 and probably close to baseline. Probably has underlying medical renal disease from longstanding obstruction. 02/08/22 Will discontinue IV fluids. Encourage oral fluids/food. Continue Calderón catheter. On tamsulosin as well. Will need Urology consultation. Serum creatinine stabilizing around 2.2 which may be his baseline. Continue to monitor for volume depletion since may have post obstructive diuresis. DOMETER MECHANIC * Jo Toribio MD - 02/07/2022 1:27 PM CST General Medicine Daily Progress SUBJECTIVE Patient is seen for Principal Problem: Hyperkalemia Acute renal failure Hyponatremia Urinary obstruction Hematuria Patient is complaining of constipation. Still having hematuria . Medicines reviewed History reviewed Labs reviewed OBJECTIVE Vitals: 24hr Min/Max: Temp Min: 36.4 ??C (97.6 ??F) Max: 37.1 ??C (98.8 ??F) Pulse Min: 61 Max: 89 BP Min: 113/69 Max: 158/82 Resp Min: 15 Max: 22 SpO2 Min: 96 % Max: 98 % Most Recent : Vitals: 02/07/22 1150 BP: 131/77 Pulse: 61 Resp: 19 Temp: 36.7 ??C (98.1 ??F) SpO2: 98% I/O last 2 completed shifts: In: 730 [P.O.:730] Out: 9075 [Urine:9075] I/O this shift: In: - Out: 1475 [Urine:1475] Review of Systems Constitutional: Negative for chills and fever. Gastrointestinal: Positive for constipation. Physical Exam: Eyes: EOMI, FALLON, sclare non icteric Neck: supple, no nuchal ridigity, no gross carotid bruits appreciated Pharynx: No gross oral lesion, tongue midline, mucosa moist Lungs CTA Heart: [id number], no significant murmur or gallop Abd: +BS, Non Tender, Non distended, No gross hepatomegaly : Calderón cath in place Lower Ext: No gross edema, pedal artery pulses are palpable bilaterally Neuro: No new deficits appreciated Musculoskeletal: no gross joint erythema, edema, tenderness Skin: No new change Lab/Current Medication Review: Recent Results (from the past 24 hour(s)) Basic metabolic panel Collection Time: 02/06/22 4:53 PM Result Value Ref Range Sodium 126 (L) 135 - 145 mmol/L Potassium, pl 4.5 3.3 - 4.9 mmol/L Chloride 94 (L) 97 - 110 mmol/L CO2 20 (L) 22 - 32 mmol/L Anion gap 12 2 - 15 mmol/L BUN 21 8 - 25 mg/dL Creatinine 1.80 (H) 0.80 - 1.30 mg/dL Glucose 106 70 - 199 mg/dL Calcium 8.2 (L) 8.5 - 10.3 mg/dL eGFR Collection Time: 02/06/22 4:53 PM Result Value Ref Range eGFR 43 mL/min/1.73 m2 Basic metabolic panel Collection Time: 02/07/22 5:42 AM Result Value Ref Range Sodium 131 (L) 135 - 145 mmol/L Potassium, pl 5.2 (H) 3.3 - 4.9 mmol/L Chloride 100 97 - 110 mmol/L CO2 23 22 - 32 mmol/L Anion gap 8 2 - 15 mmol/L BUN 25 8 - 25 mg/dL Creatinine 2.20 (H) 0.80 - 1.30 mg/dL Glucose 117 70 - 199 mg/dL Calcium 9.5 8.5 - 10.3 mg/dL CBC with auto differential Collection Time: 02/07/22 5:42 AM Result Value Ref Range WBC 10.9 (H) 3.8 - 9.9 K/cumm Hgb 13.3 13.0 - 17.5 g/dL Hct 38.2 (L) 38.9 - 50.3 % Plt 234 150 - 400 K/cumm MPV 10.0 9.1 - 12.3 fL RBC 4.36 4.30 - 5.80 M/cumm MCV 87.6 81.3 - 96.4 fL MCH 30.5 27.1 - 33.3 pg MCHC 34.8 32.3 - 35.7 g/dL RDW CV 12.1 11.1 - 14.9 % RDW SD 39.1 35.7 - 48.1 fL NRBC abs 0.00 0.00 - 0.01 K/cumm Phosphorus Collection Time: 02/07/22 5:42 AM Result Value Ref Range Phosphorus, pl 4.1 2.3 - 4.5 mg/dL Magnesium Collection Time: 02/07/22 5:42 AM Result Value Ref Range Magnesium 1.7 1.4 - 2.5 mg/dL Differential, auto Collection Time: 02/07/22 5:42 AM Result Value Ref Range Neutrophil abs 8.4 (H) 1.7 - 6.5 K/cumm Imm gran abs 0.1 0.0 - 0.1 K/cumm Lymphocyte abs 1.2 0.8 - 3.3 K/cumm Monocyte abs 1.3 (H) 0.2 - 0.8 K/cumm Eosinophil abs 0.0 0.0 - 0.5 K/cumm Basophil abs 0.0 0.0 - 0.1 K/cumm Neutrophil pct 76.7 % Imm gran pct 0.5 % Lymphocyte pct 10.7 % Monocyte pct 11.5 % Eosinophil pct 0.3 % Basophil pct 0.3 % eGFR Collection Time: 02/07/22 5:42 AM Result Value Ref Range eGFR 34 mL/min/1.73 m2 Current Facility-Administered Medications Medication Dose Route Frequency Provider Last Rate Last Admin albuterol HFA (PROVENTIL HFA,VENTOLIN HFA,PROAIR HFA) 90 mcg/actuation inhaler 2 puff 2 puff inhalation Q4H PRN (RT) Kyung Garcia MD lidocaine (GLYDO) 2 % jelly 100 mg 5 mL urethral BID PRN Britney Summers MD 100 mg at 02/04/22 2030 LORazepam (ATIVAN) tablet 0.5 mg 0.5 mg oral Q6H PRN Britney Summers MD ondansetron (ZOFRAN) injection 4 mg 4 mg intravenous Q6H PRN Feliberto Munoz MD PARoxetine (PAXIL) tablet 30 mg 30 mg oral QAM Kyung Garcia MD 30 mg at 02/07/22 0841 sodium chloride 0.9% infusion 50 mL/hr intravenous Continuous Leonardo Cristina MD 50 mL/hr at 02/07/22 1248 50 mL/hr at 02/07/22 1248 sodium chloride tablet 1 g 1 g oral TID with meals Feliberto Munoz MD 1 g at 02/07/22 1153 tamsulosin (FLOMAX) extended release capsule 0.4 mg 0.4 mg oral Nightly Kyung Garcia MD 0.4 mg at 02/06/222002 venlafaxine XR (EFFEXOR-XR) extended release capsule 37.5 mg 37.5 mg oral Daily Kyung Garcia MD37.5 mg at 02/07/22 0841 A/P: 02/07 Patient still has hematuria Creatinine is 2.2 Potassium is 5.2 Sodium is 131, asymptomatic Patient complaining of constipation with normal exam Plan Start him on low-potassium diet Fluid restriction to 1500 Nancy per day Consult urology for hematuria and obstructive uropathy Avoid any nephrotoxic drugs and follow kidney function daily Decrease IV fluids GI DVT prophylaxis A.m. labs MDM moderate Principal Problem: Hyperkalemia Resolved Problems: No resolved hospital problems. Acute renal failure Hyponatremia Urinary obstruction Hematuria Voice recognition software [employer] may have been used dictate and transcribe this document. [employer] variances may occur. Despite proofreading, typographical errors may occur. Jo Toribio MD 02/07/2022 1:27 PM DOMETER MECHANIC * Leonardo Cristina MD - 02/07/2022 11:20 AM CST Nephrology Daily Progress Subjective Reason for follow up acute kidney failure, hyperkalemia. Interval History: No new symptoms but complains of constipation. Notes that he received MiraLax butthat only increased his discomfort without relief of constipation. Asking for a suppository. Objective Vitals: 24hr Min/Max: Temp Min: 36.4 ??C (97.6 ??F) Max: 37.1 ??C (98.8 ??F) Pulse Min: 69 Max: 89 BP Min: 113/69 Max: 158/82 Resp Min: 15 Max: 22 SpO2 Min: 96 % Max: 98 % Most Recent: Vitals: 02/07/22 0900 BP: Pulse: 69 Resp: Temp: SpO2: Physical Exam: Constitutional: Appears well-developed and well-nourished. Head: Normocephalic [...] dry. Psychiatric: Normal mood and affect. Assessment/Plan Principal Problem: Hyperkalemia Acute kidney failure, obstructive uropathy Acute kidney failure and hyperkalemia in the setting of obstructive uropathy. Asked to present to the ER yesterday for significant hyperkalemia. Met him for the 1st time yesterday in that setting. Calderón catheter placed with massive postobstructive diuresis. He is hemodynamically stable. Converted to LR but now somewhat hypernatremic and will revert back to normal saline. At this point we may be driving his urine output somewhat with his IV fluid rate and will decrease this to 75 mL/hour. If he continues to have massive urine output or is hypotensive will reassess. Potassium unremarkable this morning. Started on tamsulosin. Will plan to repeat labs in a.m. 02/06 Chemistry panel pending this morning. Very impressive postobstructive diuresis with over 13 L recorded yesterday. He remains hemodynamically stable and thus did decrease his replacement fluid rate yesterday. Will await chemistry panel adjust according this morning. Converted to normal saline again yesterday given mild hyponatremia. Hopefully will see continued improvement in kidney function with relief of obstruction. Mild hematuria likely secondary to prior stretching of bladder with tamponadeeffect now relieved by Calderón. Given his massive diuresis would plan to keep him hospitalized for now to monitor and repeat labs in a.m.. If blood pressure decreasing will increase IV fluid rate and adjust pending lab results Addendum, labs have returned with a sodium of 125. Placing him on oral fluid restriction and will repeat a chemistry panel this afternoon and start sodium chloride and potassium replacement 02/07/2022 Cutting back on IV fluids to 50 mL/hour. Putting him on a low-potassium diet. Serum sodium has improved to 131. Tightening fluid restriction to 1500 mL per day. Will need Urology consultation as wellfor his obstructive uropathy likely bladder outlet obstruction from enlarged prostate and will needoutpatient voiding trial. Also does have some hematuria likely from decompression of the bladder. Avoid hypotension and nephrotoxins. Serum creatinine at 2.2 and probably close to baseline. Probably has underlying medical renal disease from longstanding obstruction. DOMETER MECHANIC * Jay Felix - 02/06/2022 11:35 AM CST 02/06/22 1100 Time Spent Start Time 1002 Patient Spiritual Assessment Spirituality Assessed Yes Protestant Affiliation Agnostic Active in Latter-Day No Clinical Encounter Type Visited With Patient Response Type Continuing visit Continue Visiting Yes Reason for visit Advanced directive Referral From Physician Advance Care Planning Patient was reluctant when asked about appointing POA. It seemed that he did not think much about it. Gave him the booklet to look it over and encouraged him to contact cafeteria worker if he is ready or have questions. DOMETER MECHANIC * Feliberto Munoz MD - 02/06/2022 9:08 AM CST Nephrology Daily Progress Subjective Reason for follow up acute kidney failure, hyperkalemia. Interval History: Doing okay this morning, did have an episode of nausea and vomiting earlier but believes it is because he tried to drink too much fluid at one time Objective Vitals: 24hr Min/Max: Temp Min: 36.5 ??C (97.7 ??F) Max: 36.7 ??C (98.1 ??F) Pulse Min: 67 Max: 82 BP Min: 144/76 Max: 166/89 Resp Min: 15 Max: 22 SpO2 Min: 98 % Max: 99 % Most Recent: Vitals: 02/06/22 0700 BP: 158/84 Pulse: 74 Resp: 22 Temp: 36.6 ??C (97.9 ??F) SpO2: 99% Physical Exam: Constitutional: Appears well-developed and well-nourished. Head: Normocephalic [...] dry. Psychiatric: Normal mood and affect. Assessment/Plan Principal Problem: Hyperkalemia Acute kidney failure, obstructive uropathy Acute kidney failure and hyperkalemia in the setting of obstructive uropathy. Asked to present to the ER yesterday for significant hyperkalemia. Met him for the 1st time yesterday in that setting. Calderón catheter placed with massive postobstructive diuresis. He is hemodynamically stable. Converted to LR but now somewhat hypernatremic and will revert back to normal saline. At this point we may be driving his urine output somewhat with his IV fluid rate and will decrease this to 75 mL/hour. If he continues to have massive urine output or is hypotensive will reassess. Potassium unremarkable this morning. Started on tamsulosin. Will plan to repeat labs in a.m. 02/06 Chemistry panel pending this morning. Very impressive postobstructive diuresis with over 13 L recorded yesterday. He remains hemodynamically stable and thus did decrease his replacement fluid rate yesterday. Will await chemistry panel adjust according this morning. Converted to normal saline again yesterday given mild hyponatremia. Hopefully will see continued improvement in kidney function with relief of obstruction. Mild hematuria likely secondary to prior stretching of bladder with tamponadeeffect now relieved by Calderón. Given his massive diuresis would plan to keep him hospitalized for now to monitor and repeat labs in a.m.. If blood pressure decreasing will increase IV fluid rate and adjust pending lab results Addendum, labs have returned with a sodium of 125. Placing him on oral fluid restriction and will repeat a chemistry panel this afternoon and start sodium chloride and potassium replacement DOMETER MECHANIC DOMETER MECHANIC * Jaylene Kelly RN - 02/04/2022 6:55 PM CST CM Initial Assessment Interview Note Admission Source: Emergency Impression: Patient presented to the ED with c/o high potassium. PCP called and stated patient needed to be seen in ED. Plan Includes: Monitor labs. Renal US. Calderón Cath. Nephrology consulted. Primary Source of Transportation: Does the patient need discharge transport arranged?: No (02/04/221853) Health Insurance Coverage: [employer] Prescription Coverage: [employer] [facility] [facility] Pharmacy: [id number] [address] Primary Care Provider: Hero Acevedo MD Prior to Admission: Primary Caregiver: Self Who does the patient or legal guardian want to receive education instruction and discharge plans for after care assistance?: Decline Support System: Family members Home Care Services: No Living Arrangements: Family members Type of Residence: Private residence Steps in home? : Yes, Inside home (02/04/221649) Behavioral Health Services: Behavioral Health Services: No (02/04/221853) Patient expects to be Discharged to: Private residence, (02/09/22 2353) Patient's Identified Problem/Goal Problem: Ensure acute medical needs are met and that patient has a safe discharge plan. Goal: Secure a discharge plan that patient/family are agreeable with and ensure patient has continuum of care. Case management will follow for discharge planning and send referrals as needed. Goals include: To assure continuity of care, To maximize coping skills, To assure patient is in a safe environment and To assure access to community resources. Plan includes: 1. Collaboration with patient, MD, direct care nurse, Title Department Manager, and other members of the health care team to assure needed interventions completed. 2. Return patient to optimal level of self-care post discharge. 3. Commission Clerk will follow for Discharge Planning - interventions as needed 4. Anticipated level of care at discharge 5. Planned Discharge Disposition Jaylene Kelly RN DOMETER MECHANIC * Brayden Mishra [facility] - 02/04/2022 4:09 PM CST Pharmacy Medication Reconciliation Note Patient Jean-Pierre Sofia is a 56 y.o. male who presents to [facility] ED-ED[facility] for admission. The prior to admission home medication list was reviewed by pharmacy. Prior to Admission medications Medication Sig Start Date End Date Taking? Authorizing Provider acidophilus-pectin, citrus 100 million cell-10 mg capsule Take 1 capsule by mouth daily Fartun Khoury MD albuterol HFA (ProAir HFA) 90 mcg/actuation inhaler Inhale 2 puffs every 4 (four) hours as needed for wheezing or shortness of breath 01/01/22 Hero Acevedo MD caprylic/capric triglyceride (CAPRYLIC-CAPRIC TRIGLY, BULK, [facility] Fartun Khoury MD chlorthalidone 25 mg tablet Take 1 tablet (25 mg total) by mouth daily 01/22/22 07/21/22 Feliberto Munoz MD cholecalciferol (VITAMIN D-3) 25 mcg (1,000 unit) tablet Take 4,000 Units by mouth daily Fartun Khoury MD ostomy supply (ENEMA BAG [facility] Coffee Enema Patient not taking: Reported on 02/04/2022 Fartun Khoury MD PARoxetine (PAXIL) 30 mg tablet Take 1 tablet (30 mg total) by mouth every morning. 11/29/17 02/04/23 Hero Acevedo MD polycarbophil (FIBERCON) 625 mg tablet Take 625 mg by mouth daily Fartun Khoury MD tamsulosin (FLOMAX) 0.4 mg extended release capsule Take 1 capsule (0.4 mg total) by mouth nightly 02/02/22 03/04/22 Feliberto Munoz MD UNABLE TO FIND Take 1 each by mouth daily Med Name: tumeric/cucumin Fartun Khoury MD venlafaxine XR (EFFEXOR-XR) 37.5 mg 24 hr capsule Take 1 capsule (37.5 mg total) by mouth daily. 11/29/17 02/04/23 Hero Acevedo MD Wixnatan Inhub 250-50 mcg/dose diskus inhaler INHALE 1 PUFF BY MOUTH DAILY. RINSE MOUTH WITH WATER AFTER USE TO REDUCE AFTERTASTE AND INCIDENCE OF CANDIDIASIS. DO NOT SWALLOW 06/02/21 Hero Acevedo MD The patient???s home medication list has been reconciled and updated as follows: - Orders that were discontinued: Caprylic/capric triglyceride Ostomy supply - Orders that were added: Unable to find- tumeric/cucumin Probiotic - Orders that were changed (doses/frequency/formulation): None - Additional comments/recommendations: Pt stated all home medications and OTCs. Pt states also taking something for yeast but cannot recall the name. He states it's been 5 days since he last took the OTC medication. Sources of information for this medication reconciliation include: patient, pharmacy records, and prescription fill history Risa Biggs CPhT 02/04/2022 3:24 PM Pharmacist reviewed patient's medication history as completed by dental laboratory technician apprentice and verified accuracy and completeness. Documentation updated accordingly. Brayden Mishra RPh 02/04/2022 3:46 PM DOMETER MECHANIC documented in this encounter H&P Notes * Kyung Garcia MD - 02/04/2022 3:37 PM CST Images from the original note were not included. History and Physical Date of Service: 02/04/2022 Primary Care Physician: Hero Acevedo MD [phone] CHIEF COMPLAINT: Patient is a 56 y.o. male with a PMHx significant for chronic kidney disease who presented to emergency room for evaluation of abnormal lab results. HPI: This is a 56-year-old male who presented to emergency room for evaluation of abnormal lab results. Patient states that his primary care physician has been monitoring his renal function since April of 2021. Serum creatinine started out at 1.6 and has been progressively getting worse. Patient had a follow-up appointment with Dr. Munoz today. Patient states today was his 1st in person appointment with insurance sales supervisor. He was noted to have elevated serum creatinine 2.6 with potassium of 6.8. Patient was sent to emergency room for further evaluation. Patient is complaining of generalized weakness. States that his body is all inflamed. Complaining of swelling in his feet and around his neck. He is complaining of difficulty with urination. Noted to have acute urinary retention in ED and Calderón catheter has been placed. Past Medical History: Diagnosis Date Anxiety Arthritis 1977 Asthma Cancer (CMS/HCC) (HCC) 2002 Chronic fatigue Constipation Depression OCD (obsessive compulsive disorder) Sleep apnea 2002 Thyroid disease 1999 Tuberculosis 1973 Past Surgical History: Procedure Laterality Date COLONOSCOPY 09/30/2017 Benign colon polyp FLEXIBLE SIGMOIDOSCOPY 01/12/2019 NAD KNEE SURGERY (Not in a hospital admission) Allergies Allergen Reactions Tetracycline Swelling Glutathione (Bulk) Unknown Prozac [Fluoxetine] Unknown Sulfa (Sulfonamide Antibiotics) Diarrhea Social History Tobacco Use Smoking status: Never Smokeless tobacco: Never Substance and Sexual Activity Drug use: Never Sexual activity: Not Currently Partners: Female Alcohol Use: Not on file Family History Problem Relation Age of Onset Alcohol abuse Father Cancer Father Mental illness Father Alcohol abuse Sister Cancer Sister Diabetes Sister Drug abuse Sister Hypertension Sister Mental illness Sister Vision loss Sister Alzheimer's disease Mother Arthritis Mother Cancer Mother Hypertension Mother Mental illness Mother Miscarriages / Stillbirths Mother Review of Systems: Review of Systems Constitutional: Positive for fatigue. Negative for chills and fever. HENT: Negative for congestion. Eyes: Negative for discharge. Respiratory: Negative for chest tightness and shortness of breath. Cardiovascular: Negative for chest pain and palpitations. Gastrointestinal: Negative for abdominal distention, nausea and vomiting. Endocrine: Negative for cold intolerance and heat intolerance. Genitourinary: Positive for difficulty urinating. Musculoskeletal: Positive for arthralgias. Skin: Negative for rash. Allergic/Immunologic: Negative for immunocompromised state. Neurological: Negative for dizziness and headaches. Hematological: Does not bruise/bleed easily. Psychiatric/Behavioral: Negative for agitation and confusion. OBJECTIVE: Vitals: Arrival Vitals [02/04/22 1223] Temp 36.5 ??C (97.7 ??F) Pulse 64 Resp 18 BP 158/92 SpO2 98 % Temp src Oral Heart Rate Source Monitor Patient Position Sitting BP Location Right arm FiO2 (%) Most Recent : Vitals: 02/04/22 1223 02/04/22 1320 BP: 158/92 153/91 BP Location: Right arm Patient Position: Sitting Pulse: 64 61 Resp: 18 21 Temp: 36.5 ??C (97.7 ??F) TempSrc: Oral SpO2: 98% 99% Weight: 91.4 kg (201 lb 8 oz) Height: 185.4 cm (6' 1 ) No intake/output data recorded. I/O this shift: In: - Out: 1800 [Urine:1800] Physical Exam: Physical Exam Vitals and nursing note reviewed. Constitutional: General: He is not in acute distress. HENT: Head: Normocephalic and atraumatic. Right Ear: External ear normal. Left Ear: External ear normal. Nose: Nose normal. Mouth/Throat: Mouth: Mucous membranes are moist. Eyes: Extraocular Movements: Extraocular movements intact. Pupils: Pupils are equal, round, and reactive to light. Cardiovascular: Rate and Rhythm: Normal rate and regular rhythm. Heart sounds: No murmur heard. Pulmonary: Effort: Pulmonary effort is normal. Breath sounds: Normal breath sounds. No wheezing. Abdominal: General: Abdomen is flat. Bowel sounds are normal. There is no distension. Palpations: Abdomen is soft. Tenderness: There is no abdominal tenderness. Musculoskeletal: General: No swelling. Cervical back: Neck supple. Right lower leg: No edema. Left lower leg: No edema. Skin: General: Skin is warm. Neurological: General: No focal deficit present. Mental Status: He is alert. Motor: No weakness. Psychiatric: Mood and Affect: Mood normal. Lab/Radiology/Diagnostic Review: Recent Results (from the past 24 hour(s)) CBC with auto differential Collection Time: 02/04/22 12:57 PM Result Value Ref Range WBC 6.0 3.8 - 9.9 K/cumm Hgb 12.4 (L) 13.0 - 17.5 g/dL Hct 38.8 (L) 38.9 - 50.3 % Plt 258 150 - 400 K/cumm MPV 10.0 9.1 - 12.3 fL RBC 4.12 (L) 4.30 - 5.80 M/cumm MCV 94.2 81.3 - 96.4 fL MCH 30.1 27.1 - 33.3 pg MCHC 32.0 (L) 32.3 - 35.7 g/dL RDW CV 12.4 11.1 - 14.9 % RDW SD 43.0 35.7 - 48.1 fL NRBC abs 0.00 0.00 - 0.01 K/cumm Comprehensive metabolic panel Collection Time: 02/04/22 12:57 PM Result Value Ref Range Sodium 133 (L) 135 - 145 mmol/L Potassium, pl 6.6 (Critical) 3.3 - 4.9 mmol/L Chloride 99 97 - 110 mmol/L CO2 28 22 - 32 mmol/L Anion gap 6 2 - 15 mmol/L BUN 19 8 - 25 mg/dL Creatinine 2.60 (H) 0.80 - 1.30 mg/dL Glucose 82 70 - 199 mg/dL Calcium 9.8 8.5 - 10.3 mg/dL Bilirubin, total 0.3 0.1 - 1.2 mg/dL Protein, pl 7.7 6.5 - 8.5 g/dL Albumin 4.0 3.5 - 5.0 g/dL Alk phos 120 40 - 130 Units/L ALT 41 7 - 55 Units/L AST 31 10 - 50 Units/L Troponin T high-sensitivity series (baseline, 2hr, 4hr, 6hr) Collection Time: 02/04/22 12:57 PM Result Value Ref Range Trop T hs 16 <=22 ng/L Differential, auto Collection Time: 02/04/22 12:57 PM Result Value Ref Range Neutrophil abs 3.8 1.7 - 6.5 K/cumm Imm gran abs 0.0 0.0 - 0.1 K/cumm Lymphocyte abs 1.4 0.8 - 3.3 K/cumm Monocyte abs 0.6 0.2 - 0.8 K/cumm Eosinophil abs 0.1 0.0 - 0.5 K/cumm Basophil abs 0.1 0.0 - 0.1 K/cumm Neutrophil pct 64.3 % Imm gran pct 0.3 % Lymphocyte pct 23.0 % Monocyte pct 9.2 % Eosinophil pct 2.2 % Basophil pct 1.0 % eGFR Collection Time: 02/04/22 12:57 PM Result Value Ref Range eGFR 28 mL/min/1.73 m2 Troponin T high-sensitivity 2-hour Collection Time: 02/04/22 2:57 PM Result Value Ref Range Trop T hs 16 <=22 ng/L Trop T hs delta 0 ng/L Trop T hs interp Insignificant XR Chest 1 Vw Portable Result Date: 02/04/2022 Narrative: EXAM DESCRIPTION: XR CHEST 1 VIEW REASON FOR STUDY: chest pain Today Onset chest pain with abnormal labs from his recent visit TECHNIQUE: One radiographic view of the chest acquired. COMPARISON: None. FINDINGS: LUNGS/PLEURA: No focal consolidation or pneumothorax. No pleural effusion. HEA RT/MEDIASTINUM: Heart size is normal. Normal mediastinal and hilar contours. HARDWARE/LINES/TUBES: None. BONES: No acute findings. OTHER: No other significant finding. IMPRESSION: No acute cardiopulmonary abnormality. THIS IS AN ELECTRONICALLY VERIFIED FINAL REPORT 02/04/2022 1:12 PM - Electronically signed by Bebo Toribio M.D. T: Report ID: [id number] Reading Location: [id number] XR Chest 1 Vw Portable Result Date: 01/19/2022 Narrative: EXAM DESCRIPTION: XR CHEST 1 VIEW REASON FOR STUDY: dyspnea, hypokalemia, dyspnea, hypertension today TECHNIQUE: One radiographic view of the chest acquired. COMPARISON: Chest x-ray 07/25/2020 FINDINGS: LUNGS/PLEURA: No focal consolidation or pneumothorax. No pleural effusion. HEART/MEDIASTINUM: Heart size is normal. Normal mediastinal and hilar contours. HARDWARE/LINES/TUBES: None. BONES: No acute findings. OTHER: No other significant finding. IMPRESSION: No acute cardiopulmonary abnormality. THIS IS AN ELECTRONICALLY VERIFIED FINAL REPORT 01/19/2022 7:47 PM - Electronically signedby Dionicio LUIS T: Report ID: [id number] Reading Location: [id number] ASSESSMENT/PLAN: Principal Problem: Hyperkalemia Resolved Problems: No resolved hospital problems. Assessment/plan: CHIO superimposed on chronic kidney disease stage 3B: Serum creatinine baseline ranging between 1.6-2.3. Creatinine elevated at 2.6 today. Gentle IV hydration Avoid nephrotoxin drugs Repeat labs tomorrow morning Renal ultrasound pending Nephrology consult Severe hyperkalemia: Tele monitoring Lokelma x1 Repeat potassium level in 4 hours. Repeat dose of loklema if K remains elevated. Repeat labs in am. Nephrology consultation has been requested. Acute urinary tension: Calderón catheter has been placed Continue catheter care Tamsulosin History of depression: Continue home meds. Full Code ESTIMATED LENGTH OF STAY: 2-3 mid nights Approximate time spent for chart review, assessment, interview, and note - 58 min Medical Decision Making Complexity: Moderate DVT prophylaxis:lovenox Case discussed with Case Management and Title Department Manager Voice recognition software MModal Fluency Direct may have been used to dictate and transcribe this document. Ware Carrier variances may occur. Despite proofreading, typographical errors may occur. Kyung Garcia MD 02/04/2022 4:09 PM DOMETER MECHANIC documented in this encounter Consult Notes * Raquel Joseph, LAUNDERER HAND - 02/09/2022 8:30 AM CSTAssociated Order(s): IP CONSULT TO UROLOGY Images from the original note were not included. Urology Consult Note History of Present Illness: I was requested to see Jean-Pierre Sofia to evaluate for urinary retention and gross hematuria by Dr. Toribio [facility] Jean-Pierre Sofia is a 56 y.o. male with hx of CKD who presented to ER due to abnormal lab results. He had appointment with Dr. Munoz today was noted to have elevated creatinine at 2.6 and potassium of6.8. Urology consulted due to complaints of difficulty urinating and renal US with bilateral mild to moderate hydro. Creatinine of 2.6. He had bladder scan showing 943 mL. Patient had calderón catheter placed and now having gross hematuria. He reports previous history of gross hematuria back in the 80's or 90's. He states he had scope into bladder and was told that he had enlarged prostate. Patient did not report any other intervention such as medication or procedures following that scope. He appears to have some mild LUTS intermittently and had some difficulty answering questions regarding his typical urinary patterns. He denies past hx of retention, dysuria, fevers. He is a non smoker and reports maternal uncle had prostate cancer. No other cancers in family. He reports some irritation from calderón catheter but no abdominal or flank pain. The patient's past medical, surgical, medication, allergy, family, and social histories were reviewed and noncontributory to this illness/condition except as noted below: The patient's past medical history is notable for: Past Medical History: Diagnosis Date Anxiety Arthritis 1977 Asthma Cancer (CMS/HCC) (HCC) 2002 Chronic fatigue Constipation Depression OCD (obsessive compulsive disorder) Sleep apnea 2002 Thyroid disease 1999 Tuberculosis 1973 The patient's past surgical history is notable for: Past Surgical History: Procedure Laterality Date COLONOSCOPY 09/30/2017 Benign colon polyp FLEXIBLE SIGMOIDOSCOPY 01/12/2019 NAD KNEE SURGERY Objective In/Outs: I/O last 3 completed shifts: In: - Out: 6150 [Urine:6150] I/O this shift: In: - Out: 675 [Urine:675] Physical Exam: Vitals: 02/09/22 0806 02/09/22 0959 02/09/22 1054 02/09/22 1500 BP: 103/69 129/84 BP Location: Right arm Right arm Patient Position: Pulse: 78 108 85 Resp: 20 20 Temp: 36.7 ??C (98 ??F) 37 ??C (98.6 ??F) TempSrc: Oral Oral SpO2: 98% 96% 99% Weight: Height: Physical Exam Vitals reviewed. Constitutional: Appearance: Normal appearance. HENT: Head: Normocephalic. Eyes: Conjunctiva/sclera: Conjunctivae normal. Pulmonary: Effort: Pulmonary effort is normal. Abdominal: General: There is no distension. Tenderness: There is no abdominal tenderness. Genitourinary: Comments: Calderón with clear, stock urine in tubing. Intermittent blood streaks noted. Neurological: Mental Status: He is alert and oriented to person, place, and time. Psychiatric: Mood and Affect: Mood normal. Behavior: Behavior normal. Thought Content: Thought content normal. Judgment: Judgment normal. Labs/Imaging: Chem/LFT Lab History Some values may be hidden. Unless noted otherwise, only the newest values recorded on each date aredisplayed. Labs-Chem/LFT Latest Ref Range 02/06/22 02/07/22 02/08/22 02/09/22 Sodium 135 - 145 mmol/L 126 (A) 131 (A) 131 (A) 138 Potassium Lvl Creatinine 0.80 - 1.30 mg/dL 1.80 (A) 2.20 (A) 2.20 (A) 2.20 (A) Bilirubin, total AST ALT CrCl- Actual Body Weight (Cockcroft-Gault) 57.8 47.3 47.3 47.3 Some values recorded on this date have been omitted. Some abnormal values recorded on this date have been omitted. (A) Abnormal value Hematology Lab History Some values may be hidden. Unless noted otherwise, only the newest values recorded on each date aredisplayed. Labs - Hematology Latest Ref Range 01/19/22 02/04/22 02/05/22 02/07/22 WBC 3.8 - 9.9 K/cumm 5.5 6.0 12.3 (A) 10.9 (A) Total Hb, POC 13.0 - 17.5 g/dL 12.9 (A) 12.4 (A) 12.1 (A) 13.3 Hct 38.9 - 50.3 % 38.9 38.8 (A) 36.4 (A) 38.2 (A) Plt 150 - 400 K/cumm 202 258 234 234 Platelets Neutrophil abs 1.7 - 6.5 K/cumm 3.5 3.8 10.6 (A) 8.4 (A) Lymphocytes, abs 0.8 - 3.3 K/cumm 1.4 1.4 1.0 1.2 (A) Abnormal value The following images were personally reviewed by me. US Renal Doppler Amphion Job ID: [id number] Amphion Document ID: [id number] Dictated date/time: REASON FOR STUDY Hypertension. FINDINGS The renal arteries are patent bilaterally. The peak systolic velocity on the right is 123 cm/sec and on the left is 113 cm/sec. On the left side these velocities from the midportion of the the renal artery, the proximal portion of renal artery could not be well visualized. Renal aortic ratios are 2.0 on the right and 1.5 on the left. IMPRESSION Patent renal arteries bilaterally with no significant stenosis. Job ID/Internal Job ID: [id number] Assessment Jean-Pierre Sofia is a 56 y.o. male with urinary retention and gross hematuria post calderón catheter placement. Gross hematuria likely related to post decompression hematuria vs bleeding from prostate. He was placed on tamsulosin 02/04. Hematuria is improving and appears clear, gold with blood streaksin catheter tubing intermittently. Plan Continue tamsulosin. Continue calderón catheter at this time. Would recommend calderón removal prior to discharge for void trial. Order for CT placed to follow up on findings of bilateral hydro prior to calderón placement as well asprostate assessment. He will require outpatient cystoscopy to complete hematuria workup. This was discussed with patient. Thank you for allowing us to participate in the care of this patient. For any questions or concerns, please refer to specialty portal to page appropriate provider senior education specialist. Raquel Joseph NP 02/09/2022 Cosigned by Dudley Cárdenas MD at 02/28/2022 8:12 AM SPEEDOMETER MECHANIC DOMETER MECHANIC DOMETER MECHANIC * Feliberto Munoz MD - 02/05/2022 9:07 AM CSTAssociated Order(s): IP CONSULT TO NEPHROLOGY Nephrology Consult Reason for Consult: ARF Requesting Provider: Dr. Dickson Subjective Patient is a 56 y.o. male with chief complaint of abnormal labs. HPI: This is a patient who been scheduled to see me in the office secondary to increasing serum creatinine and hyperkalemia. Had placed him on a low-potassium diet and ordered repeat labs with an unremarkable potassium. Had requested a renal ultrasound but for some reason had a renal artery Doppler. Contacted by vascular ultrasound tach to let me know there was evidence of hydronephrosis. Had ordered a formal renal ultrasound as soon as possible and repeat labs and potassium returned at 6.8 yesterday. He was instructed to present to the emergency room. Calderón catheter was placed with massive urine output of approximately 11 L at present. Ultrasound revealed bilateral moderate hydronephrosis and athickened bladder wall with Calderón catheter in place at that point. Serum creatinine was 2.6 yesterday and prior to recent labs had been unremarkable. Potassium was down to 5.4 this morning and creatinine is 2.2. Past Medical History: Diagnosis Date Anxiety Arthritis 1977 Asthma Cancer (CMS/HCC) (HCC) 2002 Chronic fatigue Constipation Depression OCD (obsessive compulsive disorder) Sleep apnea 2002 Thyroid disease 1999 Tuberculosis 1974 Past Surgical History: Procedure Laterality Date COLONOSCOPY 09/30/2017 Benign colon polyp FLEXIBLE SIGMOIDOSCOPY 01/12/2019 NAD KNEE SURGERY Medications Prior to Admission Medication Sig Dispense Refill Last Dose acidophilus-pectin, citrus 100 million cell-10 mg capsule Take 1 capsule by mouth daily 02/03/2022 albuterol HFA (ProAir HFA) 90 mcg/actuation inhaler Inhale 2 puffs every 4 (four) hours as needed for wheezing or shortness of breath 3 each 3 Past Month chlorthalidone 25 mg tablet Take 1 tablet (25 mg total) by mouth daily 30 tablet PRN 02/03/2022 cholecalciferol (VITAMIN D-3) 25 mcg (1,000 unit) tablet Take 4,000 Units by mouth daily 02/04/2022 PARoxetine (PAXIL) 30 mg tablet Take 1 tablet (30 mg total) by mouth every morning. 30 tablet 3 02/04/2022 polycarbophil (FIBERCON) 625 mg tablet Take 625 mg by mouth daily 02/03/2022 tamsulosin (FLOMAX) 0.4 mg extended release capsule Take 1 capsule (0.4 mg total) by mouth nightly 30 capsule 0 02/03/2022 UNABLE TO FIND Take 1 each by mouth daily Med Name: tumeric/cucumin 02/03/2022 venlafaxine XR (EFFEXOR-XR) 37.5 mg 24 hr capsule Take 1 capsule (37.5 mg total) by mouth daily. 30capsule 3 02/04/2022 Wixela Inhub 250-50 mcg/dose diskus inhaler INHALE 1 PUFF BY MOUTH DAILY. RINSE MOUTH WITH WATER AFTER USE TO REDUCE AFTERTASTE AND INCIDENCE OF CANDIDIASIS. DO NOT SWALLOW 60 each 2 02/04/2022 Allergies Allergen Reactions Tetracycline Swelling Glutathione (Bulk) Unknown Prozac [Fluoxetine] Unknown Sulfa (Sulfonamide Antibiotics) Diarrhea Social History Tobacco Use Smoking status: Never Smokeless tobacco: Never Substance and Sexual Activity Drug use: Never Sexual activity: Not Currently Partners: Female Alcohol Use: Not At Risk Frequency of Alcohol Consumption: Never Average Number of Drinks: Patient does not drink Frequency of Binge Drinking: Never Family History Problem Relation Age of Onset Alcohol abuse Father Cancer Father Mental illness Father Alcohol abuse Sister Cancer Sister Diabetes Sister Drug abuse Sister Hypertension Sister Mental illness Sister Vision loss Sister Alzheimer's disease Mother Arthritis Mother Cancer Mother Hypertension Mother Mental illness Mother Miscarriages / Stillbirths Mother Review of Systems: Constitutional: Negative for appetite change and fatigue. HENT: Negative. Eyes: Negative. Respiratory: Negative for cough, chest tightness and shortness of breath. Cardiovascular: Negative for chest pain, palpitations and leg swelling. Gastrointestinal: Negative for abdominal pain and nausea. Endocrine: Negative for polydipsia and polyuria. Genitourinary: Negative for decreased urine volume, difficulty urinating, dysuria, flank pain, frequency, hematuria and urgency. Musculoskeletal: Positive for arthralgias and myalgias. Skin: Negative for color change and rash. Allergic/Immunologic: Negative. Neurological: Negative for dizziness, weakness and light-headedness. Hematological: Negative. Psychiatric/Behavioral: Negative. Objective Vitals: 24hr Min/Max: Temp Min: 36.3 ??C (97.4 ??F) Max: 36.8 ??C (98.2 ??F) Pulse Min: 58 Max: 86 BP Min: 149/76 Max: 180/98 Resp Min: 13 Max: 21 SpO2 Min: 96 % Max: 100 % Most Recent: Vitals: 02/05/22 0700 BP: 149/76 Pulse: 73 Resp: 20 Temp: 36.7 ??C (98 ??F) SpO2: 98% Physical Exam: Constitutional: Appears well-developed and well-nourished. Head: Normocephalic [...] and dry. Psychiatric: Normal mood and affect. Assessment /Plan Principal Problem: Hyperkalemia Acute kidney failure, obstructive uropathy Acute kidney failure and hyperkalemia in the setting of obstructive uropathy. Asked to present to the ER yesterday for significant hyperkalemia. Met him for the 1st time yesterday in that setting. Calderón catheter placed with massive postobstructive diuresis. He is hemodynamically stable. Converted to LR but now somewhat hypernatremic and will revert back to normal saline. At this point we may be driving his urine output somewhat with his IV fluid rate and will decrease this to 75 mL/hour. If he continues to have massive urine output or is hypotensive will reassess. Potassium unremarkable this morning. Started on tamsulosin. Will plan to repeat labs in a.m. DOMETER MECHANIC documented in this encounter Nursing Notes * Meche Monge RN - 02/07/2022 3:26 PM CST Patient received a Soap Suds enema this afternoon. Tolerated well, no complaints. DOMETER MECHANIC documented in this encounter ED Notes * Deidre Dickson MD - 02/04/2022 3:31 PM CST HPI Chief Complaint Patient presents with Abnormal Lab HPI 3:31 PM Jean-Pierre Sofia is a 56 y.o. male presenting to the ED after being sent in with acute renal failure and hyperkalemia on his outpatient labs. He was scheduled to see Nephrology in the office.They told him to come to the emergency department after labs are resulted. Patient notes he has chronic generalized achiness and notes bilateral upper extremities have been cramping more frequently the past couple weeks. Denies all other review of systems. Patient History: Past Medical History: Diagnosis Date Anxiety Arthritis [...] Not Currently Partners: Female Alcohol Use: Not on file No current facility-administered medications for this encounter. Current Outpatient Medications: acidophilus-pectin, citrus 100 million cell-10 mg capsule albuterol HFA (ProAir HFA) 90 mcg/actuation inhaler caprylic/capric triglyceride (CAPRYLIC-CAPRIC TRIGLY, BULK, MISC) chlorthalidone 25 mg tablet cholecalciferol (VITAMIN D-3) 25 mcg (1,000 unit) tablet ostomy supply (ENEMA BAG MISC) PARoxetine (PAXIL) 30 mg tablet polycarbophil (FIBERCON) 625 mg tablet tamsulosin (FLOMAX) 0.4 mg extended release capsule UNABLE TO FIND venlafaxine XR (EFFEXOR-XR) 37.5 mg 24 hr capsule Wixela Inhub 250-50 mcg/dose diskus inhaler Review of Systems Review of Systems All systems reviewed and are neg or non contributory for this patients presentation today other than as stated in the HPI . Physical Exam ED Triage Vitals [11/23/22 1223] Temp Pulse Resp BP SpO2 36.5 ??C (97.7 ??F) 64 18 158/92 98 % Temp src Heart Rate Source Patient Position BP Location FiO2 (%) Oral Monitor Sitting Right arm -- Height Height Method Weight Weight Method 1.854 m (6' 1 ) Stated 91.4 kg (201 lb 8 oz) Standing scale Physical Exam Vitals and nursing note reviewed. Constitutional: Appearance: He is well-developed. HENT: Head: Normocephalic and atraumatic. Eyes: Conjunctiva/sclera: Conjunctivae normal. Cardiovascular: Rate and Rhythm: Normal rate and regular rhythm. Heart sounds: No murmur heard. Pulmonary: Effort: Pulmonary effort is normal. No respiratory distress. Breath sounds: Normal breath sounds. Abdominal: Palpations: Abdomen is soft. Tenderness: There is no abdominal tenderness. Musculoskeletal: General: No swelling or tenderness. Normal range of motion. Cervical back: Normal range of motion. No rigidity. Skin: General: Skin is warm and dry. Findings: No erythema. Neurological: General: No focal deficit present. Mental Status: He is alert and oriented to person, place, and time. Psychiatric: Mood and Affect: Mood normal. Behavior: Behavior normal. Procedures MDM Labs Reviewed CBC WITH AUTO DIFFERENTIAL - Abnormal Result Value WBC 6.0 Hgb 12.4 (*) Hct 38.8 (*) Plt 258 MPV 10.0 RBC 4.12 (*) MCV 94.2 MCH 30.1 MCHC 32.0 (*) RDW CV 12.4 RDW SD 43.0 NRBC abs 0.00 COMPREHENSIVE METABOLIC PANEL - Abnormal Sodium 133 (*) Potassium, pl 6.6 (*) Chloride 99 CO2 28 Anion gap 6 BUN 19 Creatinine 2.60 (*) Glucose 82 Calcium 9.8 Bilirubin, total 0.3 Protein, pl 7.7 Albumin 4.0 Alk phos 120 ALT 41 AST 31 TROPONIN T HIGH-SENSITIVITY SERIES (BASELINE, 2HR, 4HR, 6HR) Trop T hs 16 DIFFERENTIAL AUTO Neutrophil abs 3.8 Imm gran abs 0.0 Lymphocyte abs 1.4 Monocyte abs 0.6 Eosinophil abs 0.1 Basophil abs 0.1 Neutrophil pct 64.3 Imm gran pct 0.3 Lymphocyte pct 23.0 Monocyte pct 9.2 Eosinophil pct 2.2 Basophil pct 1.0 EGFR eGFR 28 TROPONIN T HIGH-SENSITIVITY 2-HOUR TROPONIN T HIGH-SENSITIVITY 4-HR TROPONIN T HIGH-SENSITIVITY 6-HOUR XR Chest 1 Vw Portable Final Result US Kidney Complete (Results Pending) BP 153/91 Pulse 61 Temp 36.5 ??C (97.7 ??F) (Oral) Resp 21 Ht 185.4 cm (6' 1 ) Wt 91.4 kg(201 lb 8 oz) SpO2 99% BMI 26.58 kg/m?? MDM Amount and/or Complexity of Data Reviewed Clinical lab tests: reviewed Tests in the radiology section of CPT??: reviewed Decide to obtain previous medical records or to obtain history from someone other than the patient:yes ED Course as of 02/04/22 1535 Time: 02/05 1532 Comment: Dr. Martins was at bedside evaluated the patient. He recommended a renal ultrasound. That is pending. He had also ordered Lokelma. He recommends admission. Patient was unable to urinate fully so Calderón was placed. Residual 900 cc of urine in his bladder. By: Deidre Dickson MD This examination was transcribed using the [employer] voice recognition system without human brake repairer railroad. In an effort to expedite patient care, this report has not been adjusted for typographical, grammatical, and syntax by a trained manager medical device. Clinical Impression: Hyperkalemia Urinary retention Acute renal failure, unspecified acute renal failure type (HCC) Deidre Dickson MD 02/04/222144 DOMETER MECHANIC * Iveth Cleveland RN - 02/04/2022 12:46 PM CST Patient to ER c/o high Potassium. Patient states his PCP called and said after OP labs yesterday his potassium is elevated and he needs to be seen at the ER. Patient reports muscle pain in his legs and he is having chest pain. DOMETER MECHANIC documented in this encounter Miscellaneous Notes * Plan of Care - Ladonna Lovell, SANTO - 02/12/2022 7:41 AM CST Problem: Respiratory distress related to problem list condition Goal: Resident will be free of signs and symptoms of respiratory distress aeb lungs clear to ausc bilateral, resp even and nonlabored Description: INTERVENTIONS: 1. Observe for and document signs and symptoms respiratory distress: shortness of breath, dyspnea, cyanosis, labored respirations, congestion, cough, adventitious lung sounds, and report to provider 2. Auscultate lungs as needed and report abnormals to provider 3. Obtain oxygen saturation as needed 4. Oxygen at 2 LPM per nasal canula as needed 5. Observe for and document signs and symptoms of congestive heart failure: pulmonary congestion, edema, change in rate and character of heart rate, and report to provider 6. Nurse will administer medication as ordered by provider 7. Droplet isolation per order 8. Elevate head of bed for respiratory ease 9. Encourage coughing and deep breathing to facilitate deep respirations and removal of secretions 10. Encourage resident to participate in ADLs and activities 11. Obtain chest x-ray as ordered and report results to provider 12. Obtain sputum culture as ordered and report results to provider Outcome: Progressing DOMETER MECHANIC * Plan of Care - Martha Khan RRT - 02/10/2022 8:05 AM CST Problem: Respiratory distress related to problem list condition Goal: Resident will be free of signs and symptoms of respiratory distress aeb lungs clear to ausc bilateral, resp even and nonlabored Description: INTERVENTIONS: 1. Observe for and document signs and symptoms respiratory distress: shortness of breath, dyspnea, cyanosis, labored respirations, congestion, cough, adventitious lung sounds, and report to provider 2. Auscultate lungs as needed and report abnormals to provider 3. Obtain oxygen saturation as needed 4. Oxygen at 2 LPM per nasal canula as needed 5. Observe for and document signs and symptoms of congestive heart failure: pulmonary congestion, edema, change in rate and character of heart rate, and report to provider 6. Nurse will administer medication as ordered by provider 7. Droplet isolation per order 8. Elevate head of bed for respiratory ease 9. Encourage coughing and deep breathing to facilitate deep respirations and removal of secretions 10. Encourage resident to participate in ADLs and activities 11. Obtain chest x-ray as ordered and report results to provider 12. Obtain sputum culture as ordered and report results to provider Outcome: Progressing DOMETER MECHANIC * Plan of Care - Milagros Gaona RRT - 02/09/2022 7:46 PM CST Problem: Respiratory distress related to problem list condition Goal: Resident will be free of signs and symptoms of respiratory distress aeb lungs clear to ausc bilateral, resp even and nonlabored Description: INTERVENTIONS: 1. Observe for and document signs and symptoms respiratory distress: shortness of breath, dyspnea, cyanosis, labored respirations, congestion, cough, adventitious lung sounds, and report to provider 2. Auscultate lungs as needed and report abnormals to provider 3. Obtain oxygen saturation as needed 4. Oxygen at 2 LPM per nasal canula as needed 5. Observe for and document signs and symptoms of congestive heart failure: pulmonary congestion, edema, change in rate and character of heart rate, and report to provider 6. Nurse will administer medication as ordered by provider 7. Droplet isolation per order 8. Elevate head of bed for respiratory ease 9. Encourage coughing and deep breathing to facilitate deep respirations and removal of secretions 10. Encourage resident to participate in ADLs and activities 11. Obtain chest x-ray as ordered and report results to provider 12. Obtain sputum culture as ordered and report results to provider Outcome: Progressing DOMETER MECHANIC * Plan of Care - Liz Stern RN - 02/09/2022 5:00 PM CST Problem: Facility Isolation Psychosocial Wellbeing Description: Resident at risk for psychosocial wellbeing concern related to medical and visitation restrictions secondary to COVID-19 Goal: Resident will not show a decline in psychosocial wellbeing or experience adverse effects through next review Description: 1. Educate resident, family, resident representatives, staff and visitors of COVID-19 signs and symptoms and precautions 2. Provide emotional support and allow resident to express feelings, fears, and concerns 3. Observe for psychosocial and mental status changes, document and update social director and MD as needed 4. Provide in room activities of choice if indicated 5. Provide alternative methods of communication with family/visitors 6. Assure resident, family, and resident representatives facility is taking precautions to keep them safe 7. Update resident, family, and resident representatives as needed Outcome: Progressing Problem: COVID-19 Prevention and Monitoring Description: Resident requires monitoring and prevention as they relate to COVID-19 Goal: Resident will show no signs or symptoms of COVID-19 Description: 1. Monitor frequently for potential symptoms including fever and respiratory symptoms 2. Educate resident, family, resident representatives, staff and visitors of COVID-19 signs and symptoms and precautions 3. Remind residents to report if they feel feverish or have symptoms of respiratory infection 4. Reinforce no visitor policy and non-essential health care personnel policy, except for certain compassionate care situations 5. When visitors are necessary and meet exception to no visitor policy, limit to a specified room, encourage social distancing with no handshakes, physical contact, and remaining 6 feet apart 6. Update resident, family, and resident representatives as needed Outcome: Progressing Problem: Health Behavior: Goal: Understanding of discharge needs will improve Outcome: Progressing Problem: Lack of Knowledge: Goal: Ability to develop a pain control plan will improve Outcome: Progressing Goal: Ability to identify pain intensity on a pain scale and rate it consistently will improve Outcome: Progressing Goal: Ability to notify healthcare provider of pain before it becomes unmanageable or unbearable will improve Outcome: Progressing Problem: Medication: Goal: Satisfaction with pain management regimen will improve Outcome: Progressing Problem: Sensory: Goal: Ability to identify factors that increase the pain will improve Outcome: Progressing Goal: Pain level will decrease Outcome: Progressing Problem: Lack of Knowledge: Goal: Verbalization of understanding the information provided will improve Outcome: Progressing Problem: Urinary Elimination: Goal: Amount of urine per voiding will increase Outcome: Progressing Goal: Experiences of bladder distention will decrease Outcome: Progressing Goal: Ability to verbalize comfortable feeling after voiding will improve Outcome: Progressing Goal: Identification of resources available to assist in meeting health care needs will improve Outcome: Progressing Problem: Respiratory distress related to problem list condition Goal: Resident will be free of signs and symptoms of respiratory distress aeb lungs clear to ausc bilateral, resp even and nonlabored Description: INTERVENTIONS: 1. Observe for and document signs and symptoms respiratory distress: shortness of breath, dyspnea, cyanosis, labored respirations, congestion, cough, adventitious lung sounds, and report to provider 2. Auscultate lungs as needed and report abnormals to provider 3. Obtain oxygen saturation as needed 4. Oxygen at 2 LPM per nasal canula as needed 5. Observe for and document signs and symptoms of congestive heart failure: pulmonary congestion, edema, change in rate and character of heart rate, and report to provider 6. Nurse will administer medication as ordered by provider 7. Droplet isolation per order 8. Elevate head of bed for respiratory ease 9. Encourage coughing and deep breathing to facilitate deep respirations and removal of secretions 10. Encourage resident to participate in ADLs and activities 11. Obtain chest x-ray as ordered and report results to provider 12. Obtain sputum culture as ordered and report results to provider Outcome: Progressing Goals: Clinical Goals for the Shift: Monitor Na+ & K+ & VS, remain free from falls, monitor I&O closely. Summary: DOMETER MECHANIC * Plan of Care - Shelly Browne, SANTO - 02/09/2022 8:08 AM CST Problem: Respiratory distress related to problem list condition Goal: Resident will be free of signs and symptoms of respiratory distress aeb lungs clear to ausc bilateral, resp even and nonlabored Description: INTERVENTIONS: 1. Observe for and document signs and symptoms respiratory distress: shortness of breath, dyspnea, cyanosis, labored respirations, congestion, cough, adventitious lung sounds, and report to provider 2. Auscultate lungs as needed and report abnormals to provider 3. Obtain oxygen saturation as needed 4. Oxygen at 2 LPM per nasal canula as needed 5. Observe for and document signs and symptoms of congestive heart failure: pulmonary congestion, edema, change in rate and character of heart rate, and report to provider 6. Nurse will administer medication as ordered by provider 7. Droplet isolation per order 8. Elevate head of bed for respiratory ease 9. Encourage coughing and deep breathing to facilitate deep respirations and removal of secretions 10. Encourage resident to participate in ADLs and activities 11. Obtain chest x-ray as ordered and report results to provider 12. Obtain sputum culture as ordered and report results to provider Outcome: Adequate for Discharge DOMETER MECHANIC * Plan of Care - Meche Monge RN - 02/08/2022 12:44 PM CST Problem: Facility Isolation Psychosocial Wellbeing Description: Resident at risk for psychosocial wellbeing concern related to medical and visitation restrictions secondary to COVID-19 Goal: Resident will not show a decline in psychosocial wellbeing or experience adverse effects through next review Description: 1. Educate resident, family, resident representatives, staff and visitors of COVID-19 signs and symptoms and precautions 2. Provide emotional support and allow resident to express feelings, fears, and concerns 3. Observe for psychosocial and mental status changes, document and update social director and MD as needed 4. Provide in room activities of choice if indicated 5. Provide alternative methods of communication with family/visitors 6. Assure resident, family, and resident representatives facility is taking precautions to keep them safe 7. Update resident, family, and resident representatives as needed Outcome: Progressing DOMETER MECHANIC * Plan of Care - Lilly Niño RN - 02/08/2022 2:00 AM CST Problem: Facility Isolation Psychosocial Wellbeing Description: Resident at risk for psychosocial wellbeing concern related to medical and visitation restrictions secondary to COVID-19 Goal: Resident will not show a decline in psychosocial wellbeing or experience adverse effects through next review Description: 1. Educate resident, family, resident representatives, staff and visitors of COVID-19 signs and symptoms and precautions 2. Provide emotional support and allow resident to express feelings, fears, and concerns 3. Observe for psychosocial and mental status changes, document and update social director and MD as needed 4. Provide in room activities of choice if indicated 5. Provide alternative methods of communication with family/visitors 6. Assure resident, family, and resident representatives facility is taking precautions to keep them safe 7. Update resident, family, and resident representatives as needed Outcome: Progressing Problem: COVID-19 Prevention and Monitoring Description: Resident requires monitoring and prevention as they relate to COVID-19 Goal: Resident will show no signs or symptoms of COVID-19 Description: 1. Monitor frequently for potential symptoms including fever and respiratory symptoms 2. Educate resident, family, resident representatives, staff and visitors of COVID-19 signs and symptoms and precautions 3. Remind residents to report if they feel feverish or have symptoms of respiratory infection 4. Reinforce no visitor policy and non-essential health care personnel policy, except for certain compassionate care situations 5. When visitors are necessary and meet exception to no visitor policy, limit to a specified room, encourage social distancing with no handshakes, physical contact, and remaining 6 feet apart 6. Update resident, family, and resident representatives as needed Outcome: Progressing Problem: Health Behavior: Goal: Understanding of discharge needs will improve Outcome: Progressing Problem: Lack of Knowledge: Goal: Ability to develop a pain control plan will improve Outcome: Progressing Goal: Ability to identify pain intensity on a pain scale and rate it consistently will improve Outcome: Progressing Goal: Ability to notify healthcare provider of pain before it becomes unmanageable or unbearable will improve Outcome: Progressing Problem: Medication: Goal: Satisfaction with pain management regimen will improve Outcome: Progressing Problem: Sensory: Goal: Ability to identify factors that increase the pain will improve Outcome: Progressing Goal: Pain level will decrease Outcome: Progressing Goals: Clinical Goals for the Shift: Monitor Na+ & K+ & VS, remain free from falls, monitor I&O closely. Summary: pt adequately oxygenated on room air, VSS, will continue to monitor progress. DOMETER MECHANIC * Plan of Care - Meche Monge RN - 02/07/2022 3:29 PM CST Problem: Facility Isolation Psychosocial Wellbeing Description: Resident at risk for psychosocial wellbeing concern related to medical and visitation restrictions secondary to COVID-19 Goal: Resident will not show a decline in psychosocial wellbeing or experience adverse effects through next review Description: 1. Educate resident, family, resident representatives, staff and visitors of COVID-19 signs and symptoms and precautions 2. Provide emotional support and allow resident to express feelings, fears, and concerns 3. Observe for psychosocial and mental status changes, document and update social director and MD as needed 4. Provide in room activities of choice if indicated 5. Provide alternative methods of communication with family/visitors 6. Assure resident, family, and resident representatives facility is taking precautions to keep them safe 7. Update resident, family, and resident representatives as needed Outcome: Progressing DOMETER MECHANIC * Plan of Care - Lilly Niño RN - 02/07/2022 1:23 AM CST Problem: Facility Isolation Psychosocial Wellbeing Description: Resident at risk for psychosocial wellbeing concern related to medical and visitation restrictions secondary to COVID-19 Goal: Resident will not show a decline in psychosocial wellbeing or experience adverse effects through next review Description: 1. Educate resident, family, resident representatives, staff and visitors of COVID-19 signs and symptoms and precautions 2. Provide emotional support and allow resident to express feelings, fears, and concerns 3. Observe for psychosocial and mental status changes, document and update social director and MD as needed 4. Provide in room activities of choice if indicated 5. Provide alternative methods of communication with family/visitors 6. Assure resident, family, and resident representatives facility is taking precautions to keep them safe 7. Update resident, family, and resident representatives as needed 02/07/2022 0123 by Lilly Niño RN Outcome: Progressing 02/07/2022 0123 by Lilly Niño RN Outcome: Progressing Problem: COVID-19 Prevention and Monitoring Description: Resident requires monitoring and prevention as they relate to COVID-19 Goal: Resident will show no signs or symptoms of COVID-19 Description: 1. Monitor frequently for potential symptoms including fever and respiratory symptoms 2. Educate resident, family, resident representatives, staff and visitors of COVID-19 signs and symptoms and precautions 3. Remind residents to report if they feel feverish or have symptoms of respiratory infection 4. Reinforce no visitor policy and non-essential health care personnel policy, except for certain compassionate care situations 5. When visitors are necessary and meet exception to no visitor policy, limit to a specified room, encourage social distancing with no handshakes, physical contact, and remaining 6 feet apart 6. Update resident, family, and resident representatives as needed 02/07/2022122 by Lilly Niño RN Outcome: Progressing 02/07/2022122 by Lilly Niño RN Outcome: Progressing Problem: Health Behavior: Goal: Understanding of discharge needs will improve 02/07/2022122 by Lilly Niño RN Outcome: Progressing 02/07/2022122 by Lilly Niño RN Outcome: Progressing Problem: Lack of Knowledge: Goal: Ability to develop a pain control plan will improve 02/07/2022122 by Lilly Niño RN Outcome: Progressing 02/07/2022122 by Lilly Niño RN Outcome: Progressing Goal: Ability to identify pain intensity on a pain scale and rate it consistently will improve 02/07/2022122 by Lilly Niño RN Outcome: Progressing 02/07/2022122 by Lilly Niño RN Outcome: Progressing Goal: Ability to notify healthcare provider of pain before it becomes unmanageable or unbearable will improve 02/07/2022122 by Lilly Niño RN Outcome: Progressing 02/07/2022122 by Lilly Niño RN Outcome: Progressing Problem: Medication: Goal: Satisfaction with pain management regimen will improve 02/07/2022122 by Lilly Niño RN Outcome: Progressing 02/07/2022122 by Lilly Niño RN Outcome: Progressing Problem: Sensory: Goal: Ability to identify factors that increase the pain will improve 02/07/2022122 by Lilly Niño RN Outcome: Progressing 02/07/2022122 by Lilly Niño RN Outcome: Progressing Goal: Pain level will decrease 02/07/2022122 by Lilly Niño RN Outcome: Progressing 02/07/2022122 by Lilly Niño RN Outcome: Progressing Goals: Clinical Goals for the Shift: VSS, monitor potassium, remain free from falls, pt education. MonitorI&O and sodium levels. Summary: Pt adequately oxygenated on RA, VSS, urine output is slowly becoming poultry eviscerator in color withless blood clots, no complaints of pain or nausea at this time. Will continue to monitor patient progress. DOMETER MECHANIC * Plan of Jayshree Parra RN - 02/06/2022 3:32 PM CST Problem: Facility Isolation Psychosocial Wellbeing Description: Resident at risk for psychosocial wellbeing concern related to medical and visitation restrictions secondary to COVID-19 Goal: Resident will not show a decline in psychosocial wellbeing or experience adverse effects through next review Description: 1. Educate resident, family, resident representatives, staff and visitors of COVID-19 signs and symptoms and precautions 2. Provide emotional support and allow resident to express feelings, fears, and concerns 3. Observe for psychosocial and mental status changes, document and update social director and MD as needed 4. Provide in room activities of choice if indicated 5. Provide alternative methods of communication with family/visitors 6. Assure resident, family, and resident representatives facility is taking precautions to keep them safe 7. Update resident, family, and resident representatives as needed Outcome: Progressing Problem: Health Behavior: Goal: Understanding of discharge needs will improve Outcome: Progressing Problem: Lack of Knowledge: Goal: Ability to develop a pain control plan will improve Outcome: Progressing Problem: Medication: Goal: Satisfaction with pain management regimen will improve Outcome: Progressing Problem: Sensory: Goal: Ability to identify factors that increase the pain will improve Outcome: Progressing Goal: Pain level will decrease Outcome: Progressing Goals: Clinical Goals for the Shift: VSS, monitor potassium, remain free from falls, pt education Summary: DOMETER MECHANIC * Plan of Jayshree Parra RN - 02/05/2022 3:00 PM CST Problem: Health Behavior: Goal: Understanding of discharge needs will improve Outcome: Progressing Problem: Lack of Knowledge: Goal: Ability to develop a pain control plan will improve Outcome: Progressing Goal: Ability to identify pain intensity on a pain scale and rate it consistently will improve Outcome: Progressing Goal: Ability to notify healthcare provider of pain before it becomes unmanageable or unbearable will improve Outcome: Progressing Problem: Medication: Goal: Satisfaction with pain management regimen will improve Outcome: Progressing Problem: Sensory: Goal: Ability to identify factors that increase the pain will improve Outcome: Progressing Goal: Pain level will decrease Outcome: Progressing Goals: Clinical Goals for the Shift: VSS, monitor potassium, remain free from falls, pt education Summary: DOMETER MECHANIC * Incidental Note - Feliberto Munoz MD - 02/04/2022 2:34 PM CST This is a patient who was scheduled to see me in the office after being seen in the ER previously with worsening kidney function and hyperkalemia. Repeat potassium on a low-potassium diet was unremarkable. I had ordered a renal ultrasound but apparently he ended up having a renal artery Doppler forsome reason although there was evidence of hydronephrosis on this. Had requested emergent formal renal ultrasound and repeat labs. Those were drawn as an outpatient yesterday and potassium returned at 6.8 today and the patient was instructed to present to the ER. Potassium here is 6.6. Plan to check formal renal ultrasound if possible otherwise bladder scan and Calderón catheter if needed. Further workup for renal dysfunction as indicated pending those results. DOMETER MECHANIC documented in this encounter Plan of Treatment Not on file documented as of this encounter Procedures Procedure Name Priority Date/Time Associated Diagnosis Comments EGFR Routine 02/12/2022 7:50 AM SPEEDOMETER MECHANIC DIFFERENTIAL AUTO Routine 02/12/2022 7:5 0 AM SPEEDOMETER MECHANIC CBC WITH AUTO DIFFERENTIAL Routine 02/12/2022 7:50 AM SPEEDOMETER MECHANIC BASIC METABOLIC PANEL Routine 02/12/2022 7:50 AM SPEEDOMETER MECHANIC EGFR Routine 02/11/2022 7:17 AM SPEEDOMETER MECHANIC BASIC METABOLIC PANEL Routine 02/11/2022 7:17 AM SPEEDOMETER MECHANIC EGFR Routine 02/10/2022 5:00 AM SPEEDOMETER MECHANIC DIFFERENTIAL AUTO Routine 02/10/2022 5:0 0 AM SPEEDOMETER MECHANIC CBC WITH AUTO DIFFERENTIAL Routine 02/10/2022 5:00 AM SPEEDOMETER MECHANIC BASIC METABOLIC PANEL Routine 02/10/2022 5:[address] ABDOMEN PELVIS WO CONTRAST IP Routine 02/09/2022 2:20 PM SPEEDOMETER MECHANIC EGFR Routine 02/09/2022 5:43 AM SPEEDOMETER MECHANIC BASIC METABOLIC PANEL Routine 02/09/2022 5:43 AM SPEEDOMETER MECHANIC EGFR Routine 02/08/2022 4:44 AM SPEEDOMETER MECHANIC BASIC METABOLIC PANEL Routine 02/08/2022 4:44 AM SPEEDOMETER MECHANIC EGFR Routine 02/07/2022 5:42 AM SPEEDOMETER MECHANIC DIFFERENTIAL AUTO Routine 02/07/2022 5:4 2 AM SPEEDOMETER MECHANIC CBC WITH AUTO DIFFERENTIAL Routine 02/07/2022 5:42 AM SPEEDOMETER MECHANIC PHOSPHORUS Routine 02/07/2022 5:42 AM SPEEDOMETER MECHANIC MAGNESIUM Routine 02/07/2022 5:42 AM SPEEDOMETER MECHANIC BASIC METABOLIC PANEL Routine 02/07/2022 5:42 AM SPEEDOMETER MECHANIC EGFR Timed 02/06/2022 4:53 PM SPEEDOMETER MECHANIC BASIC METABOLIC PANEL Timed 02/06/2022 4:53 PM SPEEDOMETER MECHANIC EGFR Routine 02/06/2022 8:49 AM SPEEDOMETER MECHANIC BASIC METABOLIC PANEL Routine 02/06/2022 8:49 AM SPEEDOMETER MECHANIC EGFR Routine 02/05/2022 6:07 AM SPEEDOMETER MECHANIC DIFFERENTIAL AUTO Routine 02/05/2022 6:0 7 AM SPEEDOMETER MECHANIC CBC WITH AUTO DIFFERENTIAL Routine 02/05/2022 6:07 AM SPEEDOMETER MECHANIC BASIC METABOLIC PANEL Routine 02/05/2022 6:07 AM SPEEDOMETER MECHANIC POTASSIUM LEVEL Timed 02/04/2022 11:45 PM SPEEDOMETER MECHANIC TROPONIN T HIGH-SENSITIVITY 6-HOUR Timed 02/04/2022 7:50 PM SPEEDOMETER MECHANIC EGFR Timed 02/04/2022 7:50 PM SPEEDOMETER MECHANIC POTASSIUM LEVEL Timed 02/04/2022 7:50 PM SPEEDOMETER MECHANIC PHOSPHORUS Timed 02/04/2022 7:50 PM SPEEDOMETER MECHANIC MAGNESIUM Timed 02/04/2022 7:50 PM SPEEDOMETER MECHANIC BASIC METABOLIC PANEL Timed 02/04/2022 7:50 PM SPEEDOMETER MECHANIC TROPONIN T HIGH-SENSITIVITY 4-HR Timed 02/04/2022 5:03 PM SPEEDOMETER MECHANIC US KIDNEY COMPLETE ED 02/04/2022 3: 53 PM SPEEDOMETER MECHANIC TROPONIN T HIGH-SENSITIVITY 2-HOUR Timed 02/04/2022 2:57 PM SPEEDOMETER MECHANIC XR CHEST 1 VIEW ED 02/04/2022 1:05 PM SPEEDOMETER MECHANIC TROPONIN T HIGH-SENSITIVITY SERIES (BASELINE, 2HR, 4HR, 6HR) STAT 02/04/2022 12:57 PM SPEEDOMETER MECHANIC EGFR STAT 02/04/2022 12:57 PM SPEEDOMETER MECHANIC DIFFERENTIAL AUTO STAT 02/04/2022 12: 57 PM SPEEDOMETER MECHANIC CBC WITH AUTO DIFFERENTIAL STAT 02/04/2022 12:57 PM SPEEDOMETER MECHANIC COMPREHENSIVE METABOLIC PANEL STAT 02/04/2022 12:57 PM SPEEDOMETER MECHANIC ECG 12-LEAD STAT 02/04/2022 12:52 PM SPEEDOMETER MECHANIC documented in this encounter Results * eGFR (02/12/2022 7:50 AM SPEEDOMETER MECHANIC) [facility] eGFR 34 mL/min/1. 73 m2 [facility]ER[facility] Comment: Interpretive Data Reference Interval Normal ?>/= [...] interpretive data was last reviewed 2021. Blood 02/12/2022 7:50 AM SPEEDOMETER MECHANIC 02/12/2022 8:25 AM SPEEDOMETER MECHANIC Kyung Garcia MD LAB BLOOD ORDERABLES Final Res ult [facility] [address] [facility] [place] [address] * Differential, auto (02/12/2022 7:50 AM SPEEDOMETER MECHANIC) Neutrophil abs 3.0 1.7 - 6.5 K/cumm [facility] Imm gran abs 0.0 0.0 - 0.1 K/cumm [facility] Lymphocyte abs 1.3 0.8 - 3.3 K/cumm [facility] Monocyte abs 0.6 0.2 - 0.8 K/cumm [facility] Eosinophil abs 0.2 0.0 - 0.5 K/cumm [facility] Basophil abs 0.1 0.0 - 0.1 K/cumm [facility] Neutrophil pct 57.6 % [facility] Comment: Interpretive Data Percent cell count reference ranges are not reported, since discordance with absolute values may lead to misinterpretation of CBC data. Current Interpretive Data was last revised on 2017. Imm gran pct 0.6 % [facility] Comment: Interpretive Data Percent cell count reference ranges are not reported, since discordance with absolute values may lead to misinterpretation of CBC data. Current Interpretive Data was last revised on 2017. Lymphocyte pct 24.8 % [facility] Comment: Interpretive Data Percent cell count reference ranges are not reported, since discordance with absolute values may lead to misinterpretation of CBC data. Current Interpretive Data was last revised on 2017. Monocyte pct 12.5 % [facility] Comment: Interpretive Data Percent cell count reference ranges are not reported, since discordance with absolute values may lead to misinterpretation of CBC data. Current Interpretive Data was last revised on 2017. Eosinophil pct 2.9 % [facility] Comment: Interpretive Data Percent cell count reference ranges are not reported, since discordance with absolute values may lead to misinterpretation of CBC data. Current Interpretive Data was last revised on 2017. Basophil pct 1.6 % [facility] Comment: Interpretive Data Percent cell count reference ranges are not reported, since discordance with absolute values may lead to misinterpretation of CBC data. Current Interpretive Data was last revised on 2017. Blood 02/12/2022 7:50 AM SPEEDOMETER MECHANIC 02/12/2022 8:25 AM SPEEDOMETER MECHANIC Jerry Dutta MD LAB BLOOD ORDERABLES Final Result Performing Organization Address [facility] Co de Phone Number [facility] [address] [place] [address] * CBC with auto differential (02/12/2022 7:50 AM SPEEDOMETER MECHANIC) Pathologist [facility] WBC 5.1 3.8 - 9.9 K/cumm [facility] Hgb 14.1 13.0 - 17.5 g/dL [facility] Hct 41.3 38.9 - 50.3 % [facility] Plt 204 150 - 400 K/cumm [facility] MPV 10.2 9.1 - 12.3 fL [facility] RBC 4.64 4.30 - 5.80 M/cumm [facility] MCV 89.0 81.3 - 96.4 fL [facility] MCH 30.4 27.1 - 33.3 pg [facility] MCHC 34.1 32.3 - 35.7 g/dL [facility] RDW CV 12.5 11.1 - 14.9 % [facility] RDW SD 40.0 35.7 - 48.1 fL [facility] NRBC abs 0.00 0.00 - 0.01 K/cumm [facility] Blood 02/12/2022 7:50 AM SPEEDOMETER MECHANIC 02/12/2022 8:25 AM SPEEDOMETER MECHANIC Jerry Dutta MD LAB BLOOD ORDERABLES Final Result Performing Organization Address [facility] Co de Phone Number [address] [place] [address] * (ABNORMAL) Basic metabolic panel (02/12/2022 7:50 AM SPEEDOMETER MECHANIC) Pathologist [facility] Sodium 137 135 - 145 mmol/L [facility] Potassium, pl 5.1(H) 3.3 - 4.9 mmol/L [facility] Chloride 99 97 - 110 mmol/L [facility] CO2 28 22 - 32 mmol/L [facility] Anion gap 10 2 - 15 mmol/L [facility] BUN 41(H) 8 - 25 mg/dL [facility] Creatinine 2.20(H) 0.80 - 1.30 mg/dL [facility] Glucose 84 70 - 199 mg/dL [facility] Comment: Interpretive Data Fasting glucose >/= 126 [...] classification and Diagnosis of Diabetes Diabetes Care 2017;40 (Suppl. 1):S11. Current interpretive data was last revised 2017. Calcium 9.7 8.5 - 10.3 mg/dL [facility] Blood 02/12/2022 7:50 AM SPEEDOMETER MECHANIC 02/12/2022 8:25 AM SPEEDOMETER MECHANIC us Kyung Garcia MD LAB BLOOD ORDERABLES Final Res ult [facility] [address] [facility] [place] [address] * eGFR (02/11/2022 7:17 AM SPEEDOMETER MECHANIC) eGFR 34 mL/min/1. 73 m2 [facility] Comment: Interpretive Data Reference Interval Normal ?>/= [...] interpretive data was last reviewed 2021. Blood 02/11/2022 7:17 AM SPEEDOMETER MECHANIC 02/11/2022 8:10 AM SPEEDOMETER MECHANIC us Kyung Garcia MD LAB BLOOD ORDERABLES Final Res ult [facility] [address] [facility] [place] [address] * (ABNORMAL) Basic metabolic panel (02/11/2022 7:17 AM SPEEDOMETER MECHANIC) Sodium 132(L) 135 - 145 mmol/L [facility] Potassium, pl 4.8 3.3 - 4.9 mmol/L [facility] Chloride 97 97 - 110 mmol/L [facility] CO2 24 22 - 32 mmol/L [facility] Anion gap 11 2 - 15 mmol/L [facility] BUN 39(H) 8 - 25 mg/dL [facility] Creatinine 2.20(H) 0.80 - 1.30 mg/dL [facility] Glucose 84 70 - 199 mg/dL [facility] Comment: Interpretive Data Fasting glucose >/= 126 [...] classification and Diagnosis of Diabetes Diabetes Care 2017;40 (Suppl. 1):S11. Current interpretive data was last revised 2017. Calcium 9.5 8.5 - 10.3 mg/dL [facility] Blood 02/11/2022 7:17 AM SPEEDOMETER MECHANIC 02/11/2022 8:10 AM SPEEDOMETER MECHANIC Kyung Garcia MD LAB BLOOD ORDERABLES Final Res ult [facility] [address] [facility] [place], [place] [id number] * eGFR (02/10/2022 5:00 AM SPEEDOMETER MECHANIC) eGFR 29 mL/min/1. 73 m2 [facility]ER[facility] Comment: Interpretive Data Reference Interval Normal ?>/= [...] interpretive data was last reviewed 2021. Blood 02/10/2022 5:00 AM SPEEDOMETER MECHANIC 02/10/2022 5:17 AM SPEEDOMETER MECHANIC Kyung Garcia MD LAB BLOOD ORDERABLES Final Res ult [facility] [address] [facility] [place] [address] * Differential, auto (02/10/2022 5:00 AM SPEEDOMETER MECHANIC) Neutrophil abs 4.7 1.7 - 6.5 K/cumm [facility] Imm gran abs 0.0 0.0 - 0.1 K/cumm [facility] Lymphocyte abs 1.9 0.8 - 3.3 K/cumm [facility] Monocyte abs 0.7 0.2 - 0.8 K/cumm [facility] Eosinophil abs 0.4 0.0 - 0.5 K/cumm [facility] Basophil abs 0.1 0.0 - 0.1 K/cumm [facility] Neutrophil pct 60.0 % [facility] Comment: Interpretive Data Percent cell count reference ranges are not reported, since discordance with absolute values may lead to misinterpretation of CBC data. Current Interpretive Data was last revised on 2017. Imm gran pct 0.5 % [facility] Comment: Interpretive Data Percent cell count reference ranges are not reported, since discordance with absolute values may lead to misinterpretation of CBC data. Current Interpretive Data was last revised on 2017. Lymphocyte pct 24.8 % [facility] Comment: Interpretive Data Percent cell count reference ranges are not reported, since discordance with absolute values may lead to misinterpretation of CBC data. Current Interpretive Data was last revised on 2017. Monocyte pct 8.8 % [facility] Comment: Interpretive Data Percent cell count reference ranges are not reported, since discordance with absolute values may lead to misinterpretation of CBC data. Current Interpretive Data was last revised on 2017. Eosinophil pct 4.5 % [facility] Comment: Interpretive Data Percent cell count reference ranges are not reported, since discordance with absolute values may lead to misinterpretation of CBC data. Current Interpretive Data was last revised on 2017. Basophil pct 1.4 % [facility] Comment: Interpretive Data Percent cell count reference ranges are not reported, since discordance with absolute values may lead to misinterpretation of CBC data. Current Interpretive Data was last revised on 2017. Blood 02/10/2022 5:00 AM SPEEDOMETER MECHANIC 02/10/2022 5:16 AM SPEEDOMETER MECHANIC Pancho Morelos MD LAB BLOOD ORDERABLES Final Result [facility] [address] [facility] [place] [address] * (ABNORMAL) Basic metabolic panel (02/10/2022 5:00 AM SPEEDOMETER MECHANIC) Pathologist [facility] Sodium 136 135 - 145 mmol/L [facility] Potassium, pl 4.8 3.3 - 4.9 mmol/L [facility] Chloride 101 97 - 110 mmol/L [facility] CO2 24 22 - 32 mmol/L [facility] Anion gap 11 2 - 15 mmol/L [facility] BUN 39(H) 8 - 25 mg/dL [facility] Creatinine 2.50(H) 0.80 - 1.30 mg/dL [facility] Glucose 94 70 - 199 mg/dL [facility] Comment: Interpretive Data Fasting glucose >/= 126 [...] classification and Diagnosis of Diabetes Diabetes Care 2017;40 (Suppl. 1):S11. Current interpretive data was last revised 2017. Calcium 9.5 8.5 - 10.3 mg/dL [facility] Blood 02/10/2022 5:00 AM SPEEDOMETER MECHANIC 02/10/2022 5:17 AM SPEEDOMETER MECHANIC Kyung Garcia MD LAB BLOOD ORDERABLES Final Res ult [facility] [address] [facility] [place] [address] * CBC with auto differential (02/10/2022 5:00 AM SPEEDOMETER MECHANIC) WBC 7.8 3.8 - 9.9 K/cumm [facility] Hgb 13.6 13.0 - 17.5 g/dL [facility] Hct 39.7 38.9 - 50.3 % [facility] Plt 227 150 - 400 K/cumm [facility] MPV 10.2 9.1 - 12.3 fL [facility] RBC 4.42 4.30 - 5.80 M/cumm [facility] MCV 89.8 81.3 - 96.4 fL [facility] MCH 30.8 27.1 - 33.3 pg [facility] MCHC 34.3 32.3 - 35.7 g/dL [facility] RDW CV 12.5 11.1 - 14.9 % [facility] RDW SD 41.1 35.7 - 48.1 fL [facility] NRBC abs 0.00 0.00 - 0.01 K/cumm [facility] Blood 02/10/2022 5:00 AM SPEEDOMETER MECHANIC 02/10/2022 5:16 AM SPEEDOMETER MECHANIC Pancho Morelos MD LAB BLOOD ORDERABLES Final Result Performing Organization Address City/State/[facility] Co de Phone Number [place] [address] [facility] [place] [address] * CT Abdomen Pelvis WO Contrast (02/09/2022 2:20 PM SPEEDOMETER MECHANIC) Anatomical Region Laterality Modality Body N/A Computed Tomogra phy 02/09/2022 3:29 PM SPEEDOMETER MECHANIC Narrative 02/09/2022 3:35 PM SPEEDOMETER MECHANIC EXAM DESCRIPTION: ?? CT ABDOMEN PELVIS WO CONTRAST REASON FOR STUDY: ?? Hydronephrosis, Gross hematuria, assessment of prostate size, and follow up on hydronephrosis post calderón placement ?? Hematuria and constipation since 02/04/22. ?? TECHNIQUE: CT scan of the abdomen and pelvis performed without intravenous and ??without ??oral contrast using helical scanning technique. Reconstructed coronal and sagittal MPR images reviewed. All images stored on PACS. ?? Automated exposure control was used as a dose optimization technique for this examination. COMPARISON: ?? Correlation is made with renal ultrasound performed 02/04/2022 FINDINGS: The sensitivity for detection of visceral lesions is diminished without the use of intravenous contrast. The liver and spleen are normal in length. ??There are no radiodense gallstones. ??There is no peripancreatic inflammation or adrenal mass. ??There is mild bilateral hydronephrosis with proximal ureterectasis. ??Subjectively this appears similar or perhaps minimally improved compared to recent ultrasound given differences in imaging modality. ??The urinary bladder wall is diffusely thickened. ??There is a Calderón catheter. ??The prostate measures 4.5 x 3.3 x 3.8 cm. There is no bowel obstruction. ??Normal appendix. ??There are vascular calcifications. ??No free intraperitoneal air or free fluid is seen. There is no acute skeletal abnormality. ??There is grade 1 anterolisthesis of L4 on L5 and grade 1 retrolisthesis of L5 on S1. ??There is mild osteoarthritis in the hip joints. IMPRESSION: ?? 1. ?? Diffuse urinary bladder wall thickening. ??This could be due to cystitis or bladder outlet obstruction. 2. ?? Bilateral hydronephrosis and proximal ureterectasis which appears [...] Findings Committee. J Am Bin Radiol. 2017 Oct;14(8):7850-6753. THIS IS AN ELECTRONICALLY VERIFIED FINAL REPORT 02/09/2022 3:35 PM - Electronically signed by ??Rosas Grossman M.D., JR D: ??02/09/2022 3:35 PM T: Report ID: [id number] Reading Location: ??[id number] Procedure Note Rosas Grossman MD - 02/09/2022 EXAM DESCRIPTION: CT ABDOMEN PELVIS WO CONTRAST REASON FOR STUDY: Hydronephrosis, Gross hematuria, assessment ofprostate size, and follow up on hydronephrosis post calderón placement Hematuria and constipation since 02/04/22. TECHNIQUE: CT scan of the abdomen and pelvis performed without intravenousand without oral contrast using helical scanning technique. Reconstructed coronal and sagittal MPR images reviewed. All images stored on PACS. Automated exposure control was used as a dose optimization technique forthis examination. COMPARISON: Correlation is made with renal ultrasound /23/2022 FINDINGS: The sensitivity for detection of visceral lesions is diminished without the use of intravenous contrast. The liver and spleen are normal in length. There are no radiodense gallstones. There is no peripancreatic inflammation or adrenal mass.There is mild bilateral hydronephrosis with proximal ureterectasis.Subjectively this appears similar or perhaps minimally improved compared to recent ultrasound given differences in imaging modality. The urinary bladderwall is diffusely thickened. There is a Calderón catheter. The prostate measures4.5 x 3.3 x 3.8 cm. There is no bowel obstruction. Normal appendix. There are vascular calcifications. No free intraperitoneal air or free fluid is seen. There is no acute skeletal abnormality. There is grade 1 anterolisthesisof L4 on L5 and grade 1 retrolisthesis of L5 on S1. There is mildosteoarthritis in the hip joints. IMPRESSION: 1. Diffuse urinary bladder wall thickening. This could be due tocystitis or bladder outlet obstruction. 2. Bilateral hydronephrosis and proximal ureterectasis which appearssimilar or perhaps minimally improved compared to recent ultrasound givendifferences in imaging modality. REFERENCE: Unless otherwise specified, no follow-up imaging is recommendedfor incidental renal and adrenal lesions per consensus recommendations basedon imaging criteria. Further lab evaluation could be pursued based onclinical findings. Management of the Incidental Renal Mass on CT: A White Paper of the ACR Incidental Findings Committee. J Am Bin Radiol. 2018 Apr;15(2):264-273. Management of Incidental Adrenal Masses: A White Paper of the ACRIncidental Findings Committee. J Am Bin Radiol. 2017 Oct;14(8):6029-2987. THIS IS AN ELECTRONICALLY VERIFIED FINAL REPORT 02/09/2022 3:35 PM - Electronically signed by Rosas Grossman M.D., JR T: Report ID: [id number] Reading Location: [id number] us Raquel BassVidhi Joseph LAUNDERER HAND IMG CT PROCEDURES Final Result * eGFR (02/09/2022 5:43 AM SPEEDOMETER MECHANIC) eGFR 34 mL/min/1. 73 m2 [facility] Comment: Interpretive Data Reference Interval Normal ?>/= [...] interpretive data was last reviewed 2021. Blood 02/09/2022 5:43 AM SPEEDOMETER MECHANIC 02/09/2022 6:03 AM SPEEDOMETER MECHANIC us Kyung Garcia MD LAB BLOOD ORDERABLES Final Res ult [facility] [address] [facility] [place] [address] * (ABNORMAL) Basic metabolic panel (02/09/2022 5:43 AM SPEEDOMETER MECHANIC) Pathologist [facility] Sodium 138 135 - 145 mmol/L [facility] Potassium, pl 4.6 3.3 - 4.9 mmol/L [facility] Chloride 103 97 - 110 mmol/L [facility] CO2 25 22 - 32 mmol/L [facility] Anion gap 10 2 - 15 mmol/L [facility] BUN 34(H) 8 - 25 mg/dL [facility] Creatinine 2.20(H) 0.80 - 1.30 mg/dL [facility] Glucose 95 70 - 199 mg/dL [facility] Comment: Interpretive Data Fasting glucose >/= 126 [...] classification and Diagnosis of Diabetes Diabetes Care 2017;40 (Suppl. 1):S11. Current interpretive data was last revised 2017. Calcium 9.6 8.5 - 10.3 mg/dL [facility] Blood 02/09/2022 5:43 AM SPEEDOMETER MECHANIC 02/09/2022 6:03 AM SPEEDOMETER MECHANIC us Kyung Garcia MD LAB BLOOD ORDERABLES Final Res ult [facility] [address] [facility] [place] [address] * eGFR (02/08/2022 4:44 AM SPEEDOMETER MECHANIC) eGFR 34 mL/min/1. 73 m2 [facility] Comment: Interpretive Data Reference Interval Normal ?>/= [...] interpretive data was last reviewed 2021. Blood 02/08/2022 4:44 AM SPEEDOMETER MECHANIC 02/08/2022 5:32 AM SPEEDOMETER MECHANIC us Kyung Garcia MD LAB BLOOD ORDERABLES Final Res ult [facility] [address] [facility] [place] [address] * (ABNORMAL) Basic metabolic panel (02/08/2022 4:44 AM SPEEDOMETER MECHANIC) Sodium 131(L) 135 - 145 mmol/L [facility] Potassium, pl 4.6 3.3 - 4.9 mmol/L [facility] Chloride 100 97 - 110 mmol/L [facility] CO2 22 22 - 32 mmol/L [facility] Anion gap 9 2 - 15 mmol/L [facility] BUN 28(H) 8 - 25 mg/dL [facility] Creatinine 2.20(H) 0.80 - 1.30 mg/dL [facility] Glucose 91 70 - 199 mg/dL [facility] Comment: Interpretive Data Fasting glucose >/= 126 [...] classification and Diagnosis of Diabetes Diabetes Care 2017;40 (Suppl. 1):S11. Current interpretive data was last revised 2017. Calcium 9.7 8.5 - 10.3 mg/dL [facility] Blood 02/08/2022 4:44 AM SPEEDOMETER MECHANIC 02/08/2022 5:32 AM SPEEDOMETER MECHANIC us Kyung Garcia MD LAB BLOOD ORDERABLES Final Res ult [facility] [address] [facility] [place] [address] * eGFR (02/07/2022 5:42 AM SPEEDOMETER MECHANIC) eGFR 34 mL/min/1. 73 m2 [facility] Comment: Interpretive Data Reference Interval Normal ?>/= [...] interpretive data was last reviewed 2021. Blood 02/07/2022 5:42 AM SPEEDOMETER MECHANIC 02/07/2022 5:57 AM SPEEDOMETER MECHANIC us Kyung Garcia MD LAB BLOOD ORDERABLES Final Res ult [facility] [address] [facility] [place] [address] * (ABNORMAL) Differential, auto (02/07/2022 5:42 AM SPEEDOMETER MECHANIC) Neutrophil abs 8.4(H) 1.7 - 6.5 K/cumm [facility] Imm gran abs 0.1 0.0 - 0.1 K/cumm [facility] Lymphocyte abs 1.2 0.8 - 3.3 K/cumm [facility] Monocyte abs 1.3(H) 0.2 - 0.8 K/cumm [facility] Eosinophil abs 0.0 0.0 - 0.5 K/cumm [facility] Basophil abs 0.0 0.0 - 0.1 K/cumm [facility] Neutrophil pct 76.7 % [facility] Comment: Interpretive Data Percent cell count reference ranges are not reported, since discordance with absolute values may lead to misinterpretation of CBC data. Current Interpretive Data was last revised on 2017. Imm gran pct 0.5 % [facility] Comment: Interpretive Data Percent cell count reference ranges are not reported, since discordance with absolute values may lead to misinterpretation of CBC data. Current Interpretive Data was last revised on 2017. Lymphocyte pct 10.7 % [facility] Comment: Interpretive Data Percent cell count reference ranges are not reported, since discordance with absolute values may lead to misinterpretation of CBC data. Current Interpretive Data was last revised on 2017. Monocyte pct 11.5 % [facility] Comment: Interpretive Data Percent cell count reference ranges are not reported, since discordance with absolute values may lead to misinterpretation of CBC data. Current Interpretive Data was last revised on 2017. Eosinophil pct 0.3 % [facility] Comment: Interpretive Data Percent cell count reference ranges are not reported, since discordance with absolute values may lead to misinterpretation of CBC data. Current Interpretive Data was last revised on 2017. Basophil pct 0.3 % [facility] Comment: Interpretive Data Percent cell count reference ranges are not reported, since discordance with absolute values may lead to misinterpretation of CBC data. Current Interpretive Data was last revised on 2017. Blood 02/07/2022 5:42 AM SPEEDOMETER MECHANIC 02/07/2022 5:57 AM SPEEDOMETER MECHANIC Feliberto Munoz MD LAB BLOOD ORDERABLES Final Re sult Performing Organization Address [facility] Co de Phone Number [address] [employer] [place] [place] [address] * (ABNORMAL) Basic metabolic panel (02/07/2022 5:42 AM SPEEDOMETER MECHANIC) Sodium 131(L) 135 - 145 mmol/L [facility] Potassium, pl 5.2(H) 3.3 - 4.9 mmol/L [facility] Chloride 100 97 - 110 mmol/L [facility] CO2 23 22 - 32 mmol/L [facility] Anion gap 8 2 - 15 mmol/L [facility] BUN 25 8 - 25 mg/dL [facility] Creatinine 2.20(H) 0.80 - 1.30 mg/dL [facility] Glucose 117 70 - 199 mg/dL [facility] Comment: Interpretive Data Fasting glucose >/= 126 [...] classification and Diagnosis of Diabetes Diabetes Care 2017;40 (Suppl. 1):S11. Current interpretive data was last revised 2017. Calcium 9.5 8.5 - 10.3 mg/dL [facility] Blood 02/07/2022 5:42 AM SPEEDOMETER MECHANIC 02/07/2022 5:57 AM SPEEDOMETER MECHANIC Kyung Garcia MD LAB BLOOD ORDERABLES Final Res ult Performing Organization Address [facility] Co de Phone Number [facility] [address] [place] [id number] * Magnesium (02/07/2022 5:42 AM SPEEDOMETER MECHANIC) [facility] Magnesium 1.7 1.4 - 2.5 mg/dL [facility] Blood 02/07/2022 5:42 AM SPEEDOMETER MECHANIC 02/07/2022 5:57 AM SPEEDOMETER MECHANIC Feliberto Munoz MD LAB BLOOD ORDERABLES Final Re sult [address] [place] [address] * Phosphorus (02/07/2022 5:42 AM SPEEDOMETER MECHANIC) [facility] Phosphorus, pl 4.1 2.3 - 4.5 mg/dL [facility] Blood 02/07/2022 5:42 AM SPEEDOMETER MECHANIC 02/07/2022 5:57 AM SPEEDOMETER MECHANIC Feliberto Munoz MD LAB BLOOD ORDERABLES Final Re sult Performing Organization Address City/[facility] Co de Phone Number [address] [address] * (ABNORMAL) CBC with auto differential (02/07/2022 5:42 AM SPEEDOMETER MECHANIC) [facility] WBC 10.9(H) 3.8 - 9.9 K/cumm [facility] Hgb 13.3 13.0 - 17.5 g/dL [facility] Hct 38.2(L) 38.9 - 50.3 % [facility] Plt 234 150 - 400 K/cumm [facility] MPV 10.0 9.1 - 12.3 fL [facility] RBC 4.36 4.30 - 5.80 M/cumm [facility] MCV 87.6 81.3 - 96.4 fL [facility] MCH 30.5 27.1 - 33.3 pg [facility] MCHC 34.8 32.3 - 35.7 g/dL [facility] RDW CV 12.1 11.1 - 14.9 % [facility] RDW SD 39.1 35.7 - 48.1 [facility]L [facility] abs 0.00 0.00 - 0.01 K/cumm [facility] Blood 02/07/2022 5:42 AM SPEEDOMETER MECHANIC 02/07/2022 5:57 AM SPEEDOMETER MECHANIC us Feliberto Munoz MD LAB BLOOD ORDERABLES Final Re sult [facility] [address] [facility] of [facility] [place], [place] [id number] * eGFR (02/06/2022 4:53 PM SPEEDOMETER MECHANIC) eGFR 43 mL/min/1. 73 m2 [facility] Comment: Interpretive Data Reference Interval Normal ?>/= [...] interpretive data was last reviewed 2021. Blood 02/06/2022 4:53 PM SPEEDOMETER MECHANIC 02/06/2022 5:12 PM SPEEDOMETER MECHANIC Feliberto Munoz MD LAB BLOOD ORDERABLES Final Re sult Performing Organization Address City/[facility]/ZIP Co de Phone Number [facility] [address] [place] [address] * (ABNORMAL) Basic metabolic panel (02/06/2022 4:53 PM SPEEDOMETER MECHANIC) Pathologist [facility] Sodium 126(L) 135 - 145 mmol/L [facility] Potassium, pl 4.5 3.3 - 4.9 mmol/L [facility] Chloride 94(L) 97 - 110 mmol/L [facility] CO2 20(L) 22 - 32 mmol/L [facility] Anion gap 12 2 - 15 mmol/L [facility] BUN 21 8 - 25 mg/dL [facility] Creatinine 1.80(H) 0.80 - 1.30 mg/dL [facility] Glucose 106 70 - 199 mg/dL [facility] Comment: Interpretive Data Fasting glucose >/= 126 [...] classification and Diagnosis of Diabetes Diabetes Care 2017;40 (Suppl. 1):S11. Current interpretive data was last revised 2017. Calcium 8.2(L) 8.5 - 10.3 mg/dL [facility] Blood 02/06/2022 4:53 PM SPEEDOMETER MECHANIC 02/06/2022 5:12 PM SPEEDOMETER MECHANIC Feliberto Munoz MD LAB BLOOD ORDERABLES Final Re sult Performing Organization Address City/[facility]/ZIP Co de Phone Number [facility] [address] [facility] [place] [address] * eGFR (02/06/2022 8:49 AM SPEEDOMETER MECHANIC) Pathologist [facility] eGFR 46 mL/min/1. 73 m2 [facility] Comment: Interpretive Data Reference Interval Normal ?>/= [...] interpretive data was last reviewed 2021. Blood 02/06/2022 8:49 AM SPEEDOMETER MECHANIC 02/06/2022 9:12 AM SPEEDOMETER MECHANIC us Kyung Garcia MD LAB BLOOD ORDERABLES Final Res ult [facility] [address] [facility] [place] [address] * (ABNORMAL) Basic metabolic panel (02/06/2022 8:49 AM SPEEDOMETER MECHANIC) Sodium 125(L) 135 - 145 mmol/L [facility] Potassium, pl 4.1 3.3 - 4.9 mmol/L [facility] Chloride 90(L) 97 - 110 mmol/L [facility] CO2 22 22 - 32 mmol/L [facility] Anion gap 13 2 - 15 mmol/L [facility] BUN 16 8 - 25 mg/dL [facility] Creatinine 1.70(H) 0.80 - 1.30 mg/dL [facility] Glucose 121 70 - 199 mg/dL [facility] Comment: Interpretive [...] classification and Diagnosis of Diabetes Diabetes Care 2017;40 (Suppl. 1):S11. Current interpretive data was last revised 2017. Calcium 8.7 8.5 - 10.3 mg/dL [facility] Blood 02/06/2022 8:49 AM SPEEDOMETER MECHANIC 02/06/2022 9:12 AM SPEEDOMETER MECHANIC us Kyung Garcia MD LAB BLOOD ORDERABLES Final Res ult [facility] [address] [facility] [place] [address] * eGFR (02/05/2022 6:07 AM SPEEDOMETER MECHANIC) eGFR 34 mL/min/1. 73 m2 [facility] Comment: Interpretive Data Reference Interval Normal ?>/= [...] interpretive data was last reviewed 2021. Blood 02/05/2022 6:07 AM SPEEDOMETER MECHANIC 02/05/2022 6:45 AM SPEEDOMETER MECHANIC us Kyung Garcia MD LAB BLOOD ORDERABLES Final Res ult [facility] [address] [facility] [place] [address] * (ABNORMAL) Differential, auto (02/05/2022 6:07 AM SPEEDOMETER MECHANIC) Neutrophil abs 10.6(H) 1.7 - 6.5 K/cumm [facility] Imm gran abs 0.1 0.0 - 0.1 K/cumm [facility] Lymphocyte abs 1.0 0.8 - 3.3 K/cumm [facility] Monocyte abs 0.6 0.2 - 0.8 K/cumm [facility] Eosinophil abs 0.0 0.0 - 0.5 K/cumm [facility] Basophil abs 0.0 0.0 - 0.1 K/cumm [facility] Neutrophil pct 86.3 % [facility] Comment: Interpretive Data Percent cell count reference ranges are not reported, since discordance with absolute values may lead to misinterpretation of CBC data. Current Interpretive Data was last revised on 2017. Imm gran pct 0.4 % [facility] Comment: Interpretive Data Percent cell count reference ranges are not reported, since discordance with absolute values may lead to misinterpretation of CBC data. Current Interpretive Data was last revised on 2017. Lymphocyte pct 8.3 % [facility] Comment: Interpretive Data Percent cell count reference ranges are not reported, since discordance with absolute values may lead to misinterpretation of CBC data. Current Interpretive Data was last revised on 2017. Monocyte pct 4.6 % [facility] Comment: Interpretive Data Percent cell count reference ranges are not reported, since discordance with absolute values may lead to misinterpretation of CBC data. Current Interpretive Data was last revised on 2017. Eosinophil pct 0.1 % [facility] Comment: Interpretive Data Percent cell count reference ranges are not reported, since discordance with absolute values may lead to misinterpretation of CBC data. Current Interpretive Data was last revised on 2017. Basophil pct 0.3 % [facility] Comment: Interpretive Data Percent cell count reference ranges are not reported, since discordance with absolute values may lead to misinterpretation of CBC data. Current Interpretive Data was last revised on 2017. Blood 02/05/2022 6:07 AM SPEEDOMETER MECHANIC 02/05/2022 6:45 AM SPEEDOMETER MECHANIC us Kyung Garcia MD LAB BLOOD ORDERABLES Final Res ult [facility] [address] [facility] [place] [address] * (ABNORMAL) Basic metabolic panel (02/05/2022 6:07 AM SPEEDOMETER MECHANIC) Sodium 128(L) 135 - 145 mmol/L [facility] Potassium, pl 5.4(H) 3.3 - 4.9 mmol/L [facility] Chloride 94(L) 97 - 110 mmol/L [facility] CO2 24 22 - 32 mmol/L [facility] Anion gap 10 2 - 15 mmol/L [facility] BUN 20 8 - 25 mg/dL [facility] Creatinine 2.20(H) 0.80 - 1.30 mg/dL [facility] Glucose 141 70 - 199 mg/dL [facility] Comment: Interpretive Data Fasting glucose >/= 126 [...] classification and Diagnosis of Diabetes Diabetes Care 2017;40 (Suppl. 1):S11. Current interpretive data was last revised 2017. Calcium 9.2 8.5 - 10.3 mg/dL [facility] Blood 02/05/2022 6:07 AM SPEEDOMETER MECHANIC 02/05/2022 6:45 AM SPEEDOMETER MECHANIC Kyung Garcia MD LAB BLOOD ORDERABLES Final Res ult Performing Organization Address City/[facility] Co de Phone Number [address] [place] [address] * (ABNORMAL) CBC with auto differential (02/05/2022 6:07 AM SPEEDOMETER MECHANIC) [facility] WBC 12.3(H) 3.8 - 9.9 K/cumm [facility] Hgb 12.1(L) 13.0 - 17.5 g/dL [facility] Hct 36.4(L) 38.9 - 50.3 % [facility] Plt 234 150 - 400 K/cumm [facility] MPV 10.4 9.1 - 12.3 fL [facility] RBC 4.01(L) 4.30 - 5.80 M/cumm [facility] MCV 90.8 81.3 - 96.4 fL [facility] MCH 30.2 27.1 - 33.3 pg [facility] MCHC 33.2 32.3 - 35.7 g/dL [facility] RDW CV 12.1 11.1 - 14.9 % [facility] RDW SD 40.0 35.7 - 48.1 fL [facility] NRBC abs 0.00 0.00 - 0.01 K/cumm [facility] Blood 02/05/2022 6:07 AM SPEEDOMETER MECHANIC 02/05/2022 6:45 AM SPEEDOMETER MECHANIC Kyung Garcia MD LAB BLOOD ORDERABLES Final Res ult Performing Organization Address City/[facility]/ZIP Co de Phone Number [address] [place] [address] * (ABNORMAL) Potassium (02/04/2022 11:45 PM SPEEDOMETER MECHANIC) Potassium, pl 5.8(H) 3.3 - 4.9 mmol/L [facility] Blood 02/04/2022 11:4 5 PM SPEEDOMETER MECHANIC 02/04/2022 11:47 PM SPEEDOMETER MECHANIC Kyung Garcia MD LAB BLOOD ORDERABLES Final Res ult [facility] [address] [facility] [place] [address] * eGFR (02/04/2022 7:50 PM SPEEDOMETER MECHANIC) eGFR 26 mL/min/1. 73 m2 [facility] Comment: Interpretive Data Reference Interval Normal ?>/= [...] interpretive data was last reviewed 2021. Blood 02/04/2022 7:50 PM SPEEDOMETER MECHANIC 02/04/2022 7:54 PM SPEEDOMETER MECHANIC us Kyung Garcia MD LAB BLOOD ORDERABLES Final Res ult Performing Organization Address City/[facility] Co de Phone Number [address] [place] [address] * Phosphorus (02/04/2022 7:50 PM SPEEDOMETER MECHANIC) [facility] Phosphorus, pl 3.5 2.3 - 4.5 mg/dL [facility] Blood 02/04/2022 7:5 0 PM SPEEDOMETER MECHANIC 02/04/2022 7:54 PM SPEEDOMETER MECHANIC us Kyung Garcia MD LAB BLOOD ORDERABLES Final Res ult Performing Organization Address [facility] Co de Phone Number [address] [place] [address] * Magnesium (02/04/2022 7:50 PM SPEEDOMETER MECHANIC) [facility] Magnesium 2.2 1.4 - 2.5 mg/dL [facility] Blood 02/04/2022 7:50 PM SPEEDOMETER MECHANIC 02/04/2022 7:54 PM SPEEDOMETER MECHANIC us Kyung Garcia MD LAB BLOOD ORDERABLES Final Res ult Performing Organization Address [facility] de Phone Number [address] [place] [address] * (ABNORMAL) Basic metabolic panel (02/04/2022 7:50 PM SPEEDOMETER MECHANIC) [facility] Sodium 138 135 - 145 mmol/L [facility] Potassium, pl 5.7(H) 3.3 - 4.9 mmol/L [facility] Chloride 104 97 - 110 mmol/L [facility] CO2 25 22 - 32 mmol/L [facility] Anion gap 9 2 - 15 mmol/L [facility] BUN 21 8 - 25 mg/dL [facility] Creatinine 2.70(H) 0.80 - 1.30 mg/dL [facility] Glucose 96 70 - 199 mg/dL [facility] Comment: Interpretive Data Fasting glucose >/= 126 [...] classification and Diagnosis of Diabetes Diabetes Care 2017;40 (Suppl. 1):S11. Current interpretive data was last revised 2017. Calcium 10.1 8.5 - 10.3 mg/dL [facility] Blood 02/04/2022 7:50 PM SPEEDOMETER MECHANIC 02/04/2022 7:54 PM SPEEDOMETER MECHANIC Kyung Garcia MD LAB BLOOD ORDERABLES Final Res ult Performing Organization Address City/[facility]/ZIP Co de Phone Number [address] [place] [address] * (ABNORMAL) Potassium (02/04/2022 7:50 PM SPEEDOMETER MECHANIC) Pathologist [facility] Potassium, pl 5.6(H) 3.3 - 4.9 mmol/L [facility] Blood 02/04/2022 7:50 PM SPEEDOMETER MECHANIC 02/04/2022 7:54 PM SPEEDOMETER MECHANIC Kyung Garcia MD LAB BLOOD ORDERABLES Final Res ult Performing Organization Address City/[facility]/ZIP Co de Phone Number [address] [address] * Troponin T high-sensitivity 6-hour (02/04/2022 7:50 PM SPEEDOMETER MECHANIC) Pathologist [facility] Trop T hs 14 <=22 ng/L [facility] Comment: Interpretive Data For further hscTnT resources including the diagnostic algorithm and an aid in interpretation, copy and paste this link: https://nrl.testcatalog.org/show/hsTrop Current Interpretive Data last revised 2020. Trop T hs delta -2 ng/L [facility] Trop T hs interp Insignificant [facility] Blood 02/04/2022 7:50 PM SPEEDOMETER MECHANIC 02/04/2022 7:54 PM SPEEDOMETER MECHANIC us Antonio Sahumary DO LAB BLOOD ORDERABLES Final Res ult Performing Organization Address [facility] de Phone Number [facility] [address] [place] [address] [place] [address] * Troponin T high-sensitivity 4-hour (02/04/2022 5:03 PM SPEEDOMETER MECHANIC) Trop T hs 16 <=22 ng/L [facility] Comment: Interpretive Data For further hscTnT resources including the diagnostic algorithm and an aid in interpretation, copy and paste this link: https://nrl.testcatalog.org/show/hsTrop Current Interpretive Data last revised 2020. Trop T hs delta 0 ng/L [facility] Trop T hs interp Insignificant [facility] Blood 02/04/2022 5:03 PM SPEEDOMETER MECHANIC 02/04/2022 5:08 PM SPEEDOMETER MECHANIC us Alvarez Jose C DO LAB BLOOD ORDERABLES Final Res ult Performing Organization Address [facility] Co de Phone Number [facility] [address] [place] [address] * US Kidney Complete (02/04/2022 3:53 PM SPEEDOMETER MECHANIC) Anatomical Region Laterality Modality Kidney N/A Ultrasound 02/04/2022 3:55 PM SPEEDOMETER MECHANIC Narrative 02/04/2022 3:58 PM SPEEDOMETER MECHANIC EXAM DESCRIPTION: ?? US KIDNEY COMPLETE REASON FOR STUDY: Urinary retention with acute renal failure for 1 day. COMPARISON: None available. TECHNIQUE: Ultrasound of the kidneys and urinary bladder was performed with grayscale imaging. FINDINGS: RIGHT KIDNEY: The right kidney measures ??12.6 ??cm. ??There is increased in echogenicity with normal cortical thickness. ?? There is mild to moderate hydronephrosis. ??No renal mass is seen. ?? LEFT KIDNEY: The left kidney measures ??10.4 ??cm. There is increased in echogenicity with normal cortical thickness. ?? There is no mild to moderate hydronephrosis. ??No renal mass is seen. ?? URINARY BLADDER: ??There is a Calderón catheter in the bladder which is not completely decompressed the bladder. ??There is wall thickening of the urinary bladder measuring 1.6 cm. ??The findings which suggest chronic outlet obstruction but nonspecific. OTHER: ??No other additional findings. IMPRESSION: 1. ?? Evidence of medical renal disease. 2. ?? [id number]-[id number] bilateral hydronephrosis. ?? 3. ?? Marked wall thickening of the urinary bladder incompletely decompressed by Calderón catheter. ??Urology follow-up recommended. 4. ?? Constellation of findings suggest the possibility of chronic outlet obstruction such as from the prostate but nonspecific. THIS IS AN ELECTRONICALLY VERIFIED FINAL REPORT 02/04/2022 3:58 PM - Electronically signed by ??Bebo Toribio M.D. D: ??02/04/2022 3:58 PM T: Report ID: [id number] Reading Location: ??[id number] Procedure Note Bebo Toribio Jr., MD - 02/04/2022 EXAM DESCRIPTION: US KIDNEY COMPLETE REASON FOR STUDY: Urinary retention with acute renal failure for 1 day. COMPARISON: None available. TECHNIQUE: Ultrasound of the kidneys and urinary bladder was performedwith grayscale imaging. FINDINGS: RIGHT KIDNEY: The right kidney measures 12.6 cm. There is increased in echogenicity with normal cortical thickness. There is mildto moderate hydronephrosis. No renal mass is seen. LEFT KIDNEY: The left kidney measures 10.4 cm. There is increased in echogenicity with normal cortical thickness. There is no mild tomoderate hydronephrosis. No renal mass is seen. URINARY BLADDER: There is a Calderón catheter in the bladder which is not completely decompressed the bladder. There is wall thickening of theurinary bladder measuring 1.6 cm. The findings which suggest chronic outlet obstruction but nonspecific. OTHER: No other additional findings. IMPRESSION: 1. Evidence of medical renal disease. 2. Fzfs-jd-[id number] bilateral hydronephrosis. 3. Marked wall thickening of the urinary bladder incompletelydecompressed by Calderón catheter. Urology follow-up recommended. 4. Constellation of findings suggest the possibility of chronic outlet obstruction such as from the prostate but nonspecific. THIS IS AN ELECTRONICALLY VERIFIED FINAL REPORT 02/04/2022 3:58 PM - Electronically signed by Bebo Toribio M.D. T: Report ID: [id number] Reading Location: [place] [id number] us Deidre Dickson MD IMG US PROCEDURES Final R esult * Troponin T high-sensitivity 2-hour (02/04/2022 2:57 PM SPEEDOMETER MECHANIC) Trop T hs 16 <=22 ng/L [facility] Comment: Interpretive Data For further hscTnT resources including the diagnostic algorithm and an aid in interpretation, copy and paste this link: https://nrl.testcatalog.org/show/hsTrop Current Interpretive Data last revised 2020. Trop T hs delta 0 ng/L [facility] Trop T hs interp Insignificant [facility] Blood 02/04/2022 2:57 PM SPEEDOMETER MECHANIC 02/04/2022 3:00 PM SPEEDOMETER MECHANIC us Antonio Woodall DO LAB BLOOD ORDERABLES Final Res ult [facility] [address] [facility] [place] [address] * XR Chest 1 Vw Portable (02/04/2022 1:05 PM SPEEDOMETER MECHANIC) Anatomical Region Laterality Modality Body, Chest N/A Computed Radiogr aphy 02/04/2022 1:12 PM SPEEDOMETER MECHANIC Narrative 02/04/2022 1:12 PM SPEEDOMETER MECHANIC EXAM DESCRIPTION: ?? XR CHEST 1 VIEW REASON FOR STUDY: ?? chest pain ?? Today Onset chest pain with abnormal labs from his recent visit ?? TECHNIQUE: ?? One ??radiographic view of the chest acquired. COMPARISON: None. FINDINGS: LUNGS/PLEURA: ?? No focal consolidation or pneumothorax. No pleural effusion. HEART/MEDIASTINUM: ?? Heart size is normal. Normal mediastinal and hilar contours. HARDWARE/LINES/TUBES: ?? None. BONES: ?? No acute findings. OTHER: ?? No other significant finding. IMPRESSION: ?? No acute cardiopulmonary abnormality. THIS IS AN ELECTRONICALLY VERIFIED FINAL REPORT 02/04/2022 1:12 PM - Electronically signed by ??Bebo Toribio M.D. D: ??02/04/2022 1:12 PM T: Report ID: [id number] Reading Location: ??[id number] Procedure Note Bebo Toribio Jr., MD - 02/04/2022 EXAM DESCRIPTION: XR CHEST 1 VIEW REASON FOR STUDY: chest pain Today Onset chest pain with abnormal labs from his recent visit TECHNIQUE: One radiographic view of the chest acquired. COMPARISON: None. FINDINGS: LUNGS/PLEURA: No focal consolidation or pneumothorax. Nopleural effusion. HEART/MEDIASTINUM: Heart size is normal. Normal mediastinal and hilar contours. HARDWARE/LINES/TUBES: None. BONES: No acute findings. OTHER: No other significant finding. IMPRESSION: No acute cardiopulmonary abnormality. THIS IS AN ELECTRONICALLY VERIFIED FINAL REPORT 02/04/2022 1:12 PM - Electronically signed by Bebo Toribio M.D. T: Report ID: [id number] Reading Location: [id number] Deidre Dickson MD IMG XR PROCEDURES Final R esult * eGFR (02/04/2022 12:57 PM SPEEDOMETER MECHANIC) [facility] Signature eGFR 28 mL/min/1. 73 m2 [facility] Comment: Interpretive Data Reference Interval Normal ?>/= [...] interpretive data was last reviewed 2021. Blood 02/04/2022 12:5 7 PM SPEEDOMETER MECHANIC 02/04/2022 1:03 PM SPEEDOMETER MECHANIC us Deidre Dickson MD LAB BLOOD ORDERABLES Kelli bass Result [facility] [address] [facility] [place] [address] * Differential, auto (02/04/2022 12:57 PM SPEEDOMETER MECHANIC) Neutrophil abs 3.8 1.7 - 6.5 K/cumm [facility] Imm gran abs 0.0 0.0 - 0.1 K/cumm [facility] Lymphocyte abs 1.4 0.8 - 3.3 K/cumm [facility] Monocyte abs 0.6 0.2 - 0.8 K/cumm [facility] Eosinophil abs 0.1 0.0 - 0.5 K/cumm [facility] Basophil abs 0.1 0.0 - 0.1 K/cumm [facility] Neutrophil pct 64.3 % [facility] Comment: Interpretive Data Percent cell count reference ranges are not reported, since discordance with absolute values may lead to misinterpretation of CBC data. Current Interpretive Data was last revised on 2017. Imm gran pct 0.3 % [facility] Comment: Interpretive Data Percent cell count reference ranges are not reported, since discordance with absolute values may lead to misinterpretation of CBC data. Current Interpretive Data was last revised on 2017. Lymphocyte pct 23.0 % [facility] Comment: Interpretive Data Percent cell count reference ranges are not reported, since discordance with absolute values may lead to misinterpretation of CBC data. Current Interpretive Data was last revised on 2017. Monocyte pct 9.2 % [facility] Comment: Interpretive Data Percent cell count reference ranges are not reported, since discordance with absolute values may lead to misinterpretation of CBC data. Current Interpretive Data was last revised on 2017. Eosinophil pct 2.2 % [facility] Comment: Interpretive Data Percent cell count reference ranges are not reported, since discordance with absolute values may lead to misinterpretation of CBC data. Current Interpretive Data was last revised on 2017. Basophil pct 1.0 % [facility] Comment: Interpretive Data Percent cell count reference ranges are not reported, since discordance with absolute values may lead to misinterpretation of CBC data. Current Interpretive Data was last revised on 2017. Blood 02/04/2022 12:5 7 PM SPEEDOMETER MECHANIC 02/04/2022 1:03 PM SPEEDOMETER MECHANIC Deidre Dickson MD LAB BLOOD ORDERABLES Kelli l Result Performing Organization Address [facility] Co de Phone Number [address] [employer] [place], [place] [id number] * Troponin T high-sensitivity series (baseline, 2hr, 4hr, 6hr) (02/04/2022 12:57 PM SPEEDOMETER MECHANIC) Trop T hs 16 <=22 ng/L [facility] Comment: Interpretive Data For further hscTnT resources including the diagnostic algorithm and an aid in interpretation, copy and paste this link: https://nrl.testcatalog.org/show/hsTrop Current Interpretive Data last revised 2020. Blood 02/04/2022 12:5 7 PM SPEEDOMETER MECHANIC 02/04/2022 1:03 PM SPEEDOMETER MECHANIC us Deidre Dickson MD LAB BLOOD ORDERABLES Kelli l Result Performing Organization Address City/[facility]/ZIP Co de Phone Number [address] [place] [place] [address] * (ABNORMAL) Comprehensive metabolic panel (02/04/2022 12:57 PM SPEEDOMETER MECHANIC) Sodium 133(L) 135 - 145 mmol/L [facility] Potassium, pl 6.6(C) 3.3 - 4.9 mmol/L [facility] Comment:Critical Result call ed to and read back by [email or web address] [email or web address], DATE: 2022-02-04 13:48:43 BY: [email or web address] Chloride 99 97 - 110 mmol/L [facility] CO2 28 22 - 32 mmol/L [facility] Anion gap 6 2 - 15 mmol/L [facility] BUN 19 8 - 25 mg/dL [facility] Creatinine 2.60(H) 0.80 - 1.30 mg/dL [facility] Glucose 82 70 - 199 mg/dL [facility] Comment: Interpretive Data Fasting glucose >/= 126 [...] classification and Diagnosis of Diabetes Diabetes Care 2017;40 (Suppl. 1):S11. Current interpretive data was last revised 2017. Calcium 9.8 8.5 - 10.3 mg/dL [facility] Bilirubin, total 0.3 0.1 - 1.2 mg/dL [facility] Protein, pl 7.7 6.5 - 8.5 g/dL [facility] Albumin 4.0 3.5 - 5.0 g/dL [facility] Alk phos 120 40 - 130 Units/L [facility] ALT 41 7 - 55 Units/L [facility] AST 31 10 - 50 Units/L [facility] Comment:Slighlty HEMOLYZED: Hemolysis interferes with the above test. Blood 02/04/2022 12:5 7 PM SPEEDOMETER MECHANIC 02/04/2022 1:03 PM SPEEDOMETER MECHANIC Deidre Dickson MD LAB BLOOD ORDERABLES Kelli l Result Performing Organization Address [facility] Co de Phone Number [address] [place] [address] * (ABNORMAL) CBC with auto differential (02/04/2022 12:57 PM SPEEDOMETER MECHANIC) [facility] WBC 6.0 3.8 - 9.9 K/cumm [facility] Hgb 12.4(L) 13.0 - 17.5 g/dL [facility] Hct 38.8(L) 38.9 - 50.3 % [facility] Plt 258 150 - 400 K/cumm [facility] MPV 10.0 9.1 - 12.3 fL [facility] RBC 4.12(L) 4.30 - 5.80 M/cumm [facility] MCV 94.2 81.3 - 96.4 fL [facility] MCH 30.1 27.1 - 33.3 pg [facility] MCHC 32.0(L) 32.3 - 35.7 g/dL [facility] RDW CV 12.4 11.1 - 14.9 % [facility] RDW SD 43.0 35.7 - 48.1 fL [facility] NRBC abs 0.00 0.00 - 0.01 K/cumm [facility] Blood (Blood, Venous) 02/04/2022 12:57 PM SPEEDOMETER MECHANIC 02/04/2022 1:03 PM SPEEDOMETER MECHANIC Deidre Dickson MD LAB BLOOD ORDERABLES Kelli l Result Performing Organization Address [facility] Co de Phone Number [address] [place] [address] * ECG 12 lead (02/04/2022 12:52 PM SPEEDOMETER MECHANIC) [facility] Ventricular Rate EKG/Min 64 BPM [facility] Atrial Rate 64 BPM [facility] [place]-Interval (MSEC) 160 ms [facility] QRS-Interval (MSEC) 74 ms [facility] QT-Interval (MSEC) 380 ms [facility] QTc 392 ms [facility] P [place] 66 degrees [facility] R [place] -34 degrees [facility] T [place] 64 degrees [facility] Diagnosis Normal sinus rhythm Left axis deviation Abnormal ECG When compared with ECG of 19-JAN-2022 18:40, QRS axis has shifted leftward [facility] 02/04/2022 12:5 2 PM SPEEDOMETER MECHANIC 02/05/2022 10:52 AM SPEEDOMETER MECHANIC us Deidre Dickson MD ECG ORDERABLES Final Res ult [facility] documented in this encounter Visit Diagnoses Diagnosis Hyperkalemia- Primary Hyperpotassemia Hyperkalemia Hyperpotassemia Urinary retention Unspecified retention of urine Acute renal failure, unspecified acute renal failure type (HCC) CHIO (acute kidney injury) (HCC) Obstructive uropathy Urinary obstruction, unspecified Hyponatremia Hyposmolality and/or hyponatremia documented in this encounter Admitting Diagnoses Diagnosis Hyperkalemia Hyperpotassemia documented in this encounter Administered Medications Inactive Administered Medications - up to 3 most recent administrations Medication Order MAR Action Action Date Dose Rate Site acetaminophen (TYLENOL) tablet 650 mg 650 mg, oral, Every 4 hours PRN, 1st line for pain, fever, fever greater than 38.3 C, Starting on Wed02/09/22 at 1130, Indications: Fever, PainIndications:Fever,Pain Given 02/10/2022 4:51 AM SPEEDOMETER MECHANIC 650 mg Given 02/09/2022 11:53 PM SPEEDOMETER MECHANIC 650 mg Given 02/09/2022 7:24 PM SPEEDOMETER MECHANIC 650 mg bisacodyl EC (DULCOLAX EC) tablet 5 mg 5 mg, oral, Daily PRN, constipation, Starting on Wed02/09/22 at 1515, Do not crush, chew, cut, dissolve, open or otherwise manipulate tablet/capsule., Indications: constipationIndications:constipation Given 02/11/2022 8:38 AM SPEEDOMETER MECHANIC 5 mg Given 02/10/2022 7:58 PM SPEEDOMETER MECHANIC 5 mg Given 02/09/2022 4:47 PM SPEEDOMETER MECHANIC 5 mg budesonide-formoteroL (SYMBICORT) 160-4.5 mcg/actuation inhaler 2 puff 2 puff, inhalation, 2 times daily (respiratory clinician), First dose on Wed02/08/22 at 2000, I /authorizing provider attest that the patient meets the approved [facility] Use Criteria: Yes Given 02/12/2022 7:38 AM SPEEDOMETER MECHANIC 2 puffs Given 02/11/2022 7:47 PM SPEEDOMETER MECHANIC 2 puffs Given 02/11/2022 7:22 AM SPEEDOMETER MECHANIC 2 puffs docusate sodium (COLACE) capsule 100 mg 100 mg, oral, 2 times daily, First dose on Wed02/09/22 at 2100, Indications: constipationIndications:constipation Given 02/12/2022 8:57 AM SPEEDOMETER MECHANIC 100 mg Given 02/11/2022 8:00 PM SPEEDOMETER MECHANIC 100 mg Given 02/11/2022 8:38 AM SPEEDOMETER MECHANIC 100 mg enoxaparin (LOVENOX) syringe 40 mg 40 mg, subcutaneous, Daily (for enoxaparin), First dose on Wed02/09/22 at 2100, Indications: Deep Vein Thrombosis PreventionIndications:Deep Vein Thrombosis Prevention Given 02/11/2022 8:00 PM SPEEDOMETER MECHANIC 40 mg Left Lower Abdomen Given 02/10/2022 7:57 PM SPEEDOMETER MECHANIC 40 mg Le ft Lower Abdomen Given 02/09/2022 7:24 PM SPEEDOMETER MECHANIC 40 mg Le ft Lower Abdomen HYDROcodone-acetaminophen (NORCO) 5-325 mg per tablet 1 tablet 1 tablet, oral, Every 4 hours PRN, 2nd line for pain, Starting on Wed02/09/22 at 1129, Indications: PainIndications:Pain Lactated Ringer's (LR) infusion 200 mL/hr, intravenous, Continuous, Starting on Wed02/04/22 at 1915, Please check with hospitalist tomorrow, regarding reducing the fluid infusion New Bag 02/05/2022 5:31 AM SPEEDOMETER MECHANIC 200 mL/hr 200 mL/hr New Bag 02/05/2022 12:25 AM SPEEDOMETER MECHANIC 200 mL/hr 200 mL/hr New Bag 02/04/2022 6:38 PM SPEEDOMETER MECHANIC 200 mL/hr 200 mL/hr lactulose 0.67 gram/mL oral solution 20 g 20 g, oral, Daily PRN, conspitation, Starting on Wed02/11/22 at 1144 Given 02/11/2022 12:27 PM SPEEDOMETER MECHANIC 20 g lidocaine (GLYDO) 2 % jelly 100 mg 100 mg (5 mL), urethral, 2 times daily PRN, 1st line for pain, Starting on Wed02/04/22 at 1850 Given 02/07/2022 8:58 PM SPEEDOMETER MECHANIC 100 mg Given 02/04/2022 8:30 PM SPEEDOMETER MECHANIC 100 mg lidocaine (LMX) 4 % cream 1 application 1 application (deactivated), topical, 4 times daily PRN, 1st line for pain, Starting on Wed02/12/22 at 1307, In urethra for calderón irritation, Apply to affected area: other LORazepam (ATIVAN) tablet 0.5 mg 0.5 mg, oral, Every 6 hours PRN, anxiety, Starting on Wed02/04/22 at 1850 ondansetron (ZOFRAN) injection 4 mg 4 mg, intravenous, Administer over 2 Minutes, Every 6 hours PRN, nausea, vomiting, Starting on Wed02/06/22 at 0908 PARoxetine (PAXIL) tablet 30 mg 30 mg, oral, Every morning, First dose on Wed02/05/22 at 0900 Given 02/12/2022 9:00 AM SPEEDOMETER MECHANIC 30 mg Given 02/11/2022 8:40 AM SPEEDOMETER MECHANIC 30 mg Given 02/10/2022 8:58 AM SPEEDOMETER MECHANIC 30 mg polyethylene glycol (MIRALAX) packet 17 g 17 g, oral, Daily, First dose on Wed02/09/22 at 1600, Indications: constipationIndications:constipation Given 02/12/2022 12:47 PM SPEEDOMETER MECHANIC 17 g Given 02/11/2022 8:38 AM SPEEDOMETER MECHANIC 17 g Given 02/10/2022 8:58 AM SPEEDOMETER MECHANIC 17 g potassium chloride ER (KLOR-CON) extended release tablet 20 mEq 20 mEq, oral, 3 times daily, First dose on Wed02/06/22 at 1030, Do not crush, chew, cut, dissolve, open or otherwise manipulate tablet/capsule. Given 02/06/2022 8:04 PM SPEEDOMETER MECHANIC 20 mEq Given 02/06/2022 3:48 PM SPEEDOMETER MECHANIC 20 mEq Given 02/06/2022 11:25 AM SPEEDOMETER MECHANIC 20 mEq sodium chloride 0.9% infusion 200 mL/hr, intravenous, Continuous, Starting on Wed02/04/22 at 1612, For 24 hours, Please check with hospitalist tomorrow. Regarding slowing down fluids Rate/Dose Verify 02/04/2022 5:36 PM SPEEDOMETER MECHANIC 75 mL/hr 75 mL/hr New Bag 02/04/2022 5:35 PM SPEEDOMETER MECHANIC 75 mL/hr 75 mL/hr sodium chloride 0.9% infusion 50 mL/hr, intravenous, Continuous, Starting on Genevieve 02/05/22 at 0945 New Bag 02/07/2022 4:38 PM SPEEDOMETER MECHANIC 50 mL/hr 50 mL/hr Rate/Dose Change 02/07/2022 12:48 PM SPEEDOMETER MECHANIC 50 mL/hr 50 mL/ hr New Bag 02/07/2022 3:35 AM SPEEDOMETER MECHANIC 75 mL/hr 75 mL/hr sodium chloride tablet 1 g 1 g, oral, 3 times daily with meals, First dose on Wed02/06/22 at 1200, Each 1 gram tablet contains 17 mEq of sodium. Given 02/10/2022 8:57 AM SPEEDOMETER MECHANIC 1 g Given 02/09/2022 6:17 PM SPEEDOMETER MECHANIC 1 g Given 02/09/2022 12:44 PM SPEEDOMETER MECHANIC 1 g sodium zirconium cyclosilicate (LOKELMA) packet 10 g 10 g, oral, Once, On Wed02/04/22 at 1307, For 1 dose, Adjust medication timing to ensure other oral medications are administered at least 2 hours before or 2 hours after sodium zirconium cyclosilicate. Empty packet(s) into a glass with 3 tablespoons (45 mL) of water. Stir and administer immediately. Repeat until no powder remains in glass., Indications: hyperkalemiaIndications:hyperkalemia Given 02/04/2022 1:52 PM SPEEDOMETER MECHANIC 10 g sodium zirconium cyclosilicate (LOKELMA) packet 10 g 10 g, oral, Once, On Wed02/04/22 at 2000, For 1 dose, Adjust medication timing to ensure other oral medications are administered at least 2 hours before or 2 hours after sodium zirconium cyclosilicate. Empty packet(s) into a glass with 3 tablespoons (45 mL) of water. Stir and administer immediately. Repeat until no powder remains in glass., Indications: hyperkalemiaIndications:hyperkalemia Given 02/04/2022 8:32 PM SPEEDOMETER MECHANIC 10 g tamsulosin (FLOMAX) extended release capsule 0.4 mg 0.4 mg, oral, Nightly, First dose on Wed02/04/22 at 2100, Do not crush, chew, cut, dissolve, open or otherwise manipulate tablet/capsule. Given 02/11/2022 8:00 PM SPEEDOMETER MECHANIC 0.4 mg Given 02/10/2022 7:57 PM SPEEDOMETER MECHANIC 0.4 mg Given 02/09/2022 7:25 PM SPEEDOMETER MECHANIC 0.4 mg venlafaxine XR (EFFEXOR-XR) extended release capsule 37.5 mg 37.5 mg, oral, Daily, First dose on Genevieve 02/05/22 at 0900, Do not crush, chew, cut, dissolve, open or otherwise manipulate tablet/capsule. Given 02/12/2022 8:57 AM SPEEDOMETER MECHANIC 37.5 mg Given 02/11/2022 8:38 AM SPEEDOMETER MECHANIC 37.5 mg Given 02/10/2022 8:57 AM SPEEDOMETER MECHANIC 37.5 mg documented in this encounter Discontinued Medications Medication Sig Discontinue Reason Start Date End Da te caprylic/capric triglyceride (CAPRYLIC-CAPRIC TRIGLY, BULK, MISC) Therapy completed 02/04/2022 ostomy supply (ENEMA BAG MISC) Coffee Enema Therapy completed 02/04/2022 chlorthalidone 25 mg tablet Take 1 tablet (25 mg total) by mouth daily Stop Taking at Discharge 01/22/2022 02/12/2022 documented as of this encounter Historical Medications * This list may reflect changes made after this encounter. acidophilus-pecti n, citrus 100 million cell-10 mg capsule Take 1 capsule by mouth daily 03/24/2022 UNABLE TO FIND Take 1 each by mouth daily Med Name: tumeric/cucum in 03/29/2023 added in this encounter Active and Recently Administered Medications Times are shown in SPEEDOMETER MECHANIC. Scheduled Medication Order 02/10/2022 02/11/2022 02/12/2022 budesonide-formoteroL (SYMBICORT) 160-4.5 mcg/actuation inhaler 2 puff 2 puff, inhalation, 2 times daily (respiratory clinician), First dose on 02/08/22 at 2000, I /authorizing provider attest that the patient meets the approved [facility] Use Criteria: Yes 0753 (Given - Provider: Martha Khan, SANTO)7308 (Not Given - Provider: Milagros Gaona RRT - Reason: Other - Comment: workload) 0722 (Given - Provider: Ladonna Lovell, SANTO)194 (Given - Provider: Maribell Olson, MONOMER PURIFICATION OPERATOR) 0738 (Given - Provider: Ladonna Lovell, MONOMER PURIFICATION OPERATOR) docusate sodium (COLACE) capsule 100 mg 100 mg, oral, 2 times daily, First dose on Wed02/09/22 at 2100, Indications: constipation 0857 (Given - Provider: Marj Gamez RN)1956 (Given - Provider: Lana Mleendez RN) 0838 (Given - Provider: Clara Webb, GARFIELD)1999 (Given - Provider: Hannah Johnson RN) 0857 (Given - Provider: Cameron Quintero RN) enoxaparin (LOVENOX) syringe 40 mg 40 mg, subcutaneous, Daily (for enoxaparin), First dose on Wed02/09/22 at 2100, Indications: Deep Vein Thrombosis Prevention 1956 (Given - Provider: Lana Melendez RN) 1999 (Given - Provider: Hannah Johnson RN) PARoxetine (PAXIL) tablet 30 mg 30 mg, oral, Every morning, First dose on Wed02/05/22 at 0900 0858 (Given - Provider: Marj Gamez RN) 0840 (Given - Provider: Clara Webb RN) 0900 (Given - Provider: Cameron Quintero RN) polyethylene glycol (MIRALAX) packet 17 g 17 g, oral, Daily, First dose on Wed02/09/22 at 1600, Indications: constipation 0858 (Given - Provider: Marj Gamez RN) 0838 (Given - Provider: Clara Webb RN) 1247 (Given - Provider: Cameron Quintero RN) sodium chloride tablet 1 g (CANCELED) 1 g, oral, 3 times daily with meals, First dose on Wed02/06/22 at 1200, Each 1 gram tablet contains 17 mEq of sodium. 0857 (Given - Provider: Marj Gamez RN) tamsulosin (FLOMAX) extended release capsule 0.4 mg 0.4 mg, oral, Nightly, First dose on Wed02/04/22 at 2100, Do not crush, chew, cut, dissolve, open or otherwise manipulate tablet/capsule. 1956 (Given - Provider: Lana Melendez RN) 1999 (Given - Provider: Hannah Johnson RN) venlafaxine XR (EFFEXOR-XR) extended release capsule 37.5 mg 37.5 mg, oral, Daily, First dose on Wed02/05/22 at 0900, Do not crush, chew, cut, dissolve, open or otherwise manipulate tablet/capsule. 0857 (Given - Provider: Marj Gamez RN) 0838 (Given - Provider: Clara Webb RN) 0857 (Given - Provider: Cameron Quintero RN) PRN Medication Order 02/10/2022 02/11/2022 02/12/2022 acetaminophen (TYLENOL) tablet 650 mg 650 mg, oral, Every 4 hours PRN, 1st line for pain, fever, fever greater than 38.3 C, Starting on Wed02/09/22 at 1130, Indications: Fever, Pain 0451 (Given - Provider: Lana Melendez RN) albuterol HFA (PROVENTIL HFA,VENTOLIN HFA,PROAIR HFA) 90 mcg/actuation inhaler 2 puff 2 puff, inhalation, Every 4 hours PRN (respiratory clinician), shortness of breath, Starting on Wed02/04/22 at 1655 bisacodyl EC (DULCOLAX EC) tablet 5 mg 5 mg, oral, Daily PRN, constipation, Starting on Wed02/09/22 at 1515, Do not crush, chew, cut, dissolve, open or otherwise manipulate tablet/capsule., Indications: constipation 1957 (Given - Provider: Lana Melendez RN) 0838 (Given - Provider: Clara Webb RN) HYDROcodone-acetaminophen (NORCO) 5-325 mg per tablet 1 tablet 1 tablet, oral, Every 4 hours PRN, 2nd line for pain, Starting on Wed02/09/22 at 1129, Indications: Pain lactulose 0.67 gram/mL oral solution 20 g 20 g, oral, Daily PRN, conspitation, Starting on Wed02/11/22 at 1144 1227 (Given - Provider: Clara Webb RN) lidocaine (LMX) 4 % cream 1 application 1 application (deactivated), topical, 4 times daily PRN, 1st line for pain, Starting on Wed02/12/22 at 1307, In urethra for calderón irritation, Apply to affected area: other LORazepam (ATIVAN) tablet 0.5 mg 0.5 mg, oral, Every 6 hours PRN, anxiety, Starting on 02/04/22 at 1850 ondansetron (ZOFRAN) injection 4 mg 4 mg, intravenous, Administer over 2 Minutes, Every 6 hours PRN, nausea, vomiting, Starting on 02/06/22 at 0908 documented in this encounter Orders Medications Ordered That Zach ht Not Have Been Administered Count Last Ordered Date First Ordered Date lidocaine (GLYDO) 2 % jelly 100 mg 1 2021 lidocaine (LMX) 4 % cream 1 application 2 1 04/15/2021 HYDROcodone-acetaminophen (N ORCO) 5-325 mg per tablet 1 tablet 1 02/09/2022 ondansetron (ZOFRAN) injection 4 mg 1 02/06 albuterol HFA (PROVENTIL HFA ,VENTOLIN HFA,PROAIR HFA) 90 mcg/actuation inhaler 2 puff 1 02/04/2022 LORazepam (ATIVAN) tablet 0.5 mg 1 02/05/20 sodium chloride 0.9% infusion 1 02/04/2022 Diet Count Last Ordered Date First Orde red Date ADULT DISCHARGE DIET 1 02/12/2022 Nursing Count Last Ordered Date First Orde red Date DISCHARGE ACTIVITY 1 02/12/2022 DISCHARGE INSTRUCTIONS 1 02/12/2022 INSERT CALDERÓN CATHETER 2 02/11/20222021 TAP WATER ENEMA 2 02/11/2022 02/10/2022 BLADDER SCAN 2 02/10/2022 02/04/2022 CALDERÓN CATHETER - DISCONTINUE 1 02/10/2022 SOAP SUDS ENEMA 1 02/07/2022 NOTIFY PROVIDER (SPECIFY) 1 02/04/2022 TELEMETRY MONITORING 1 02/04/2022 WEIGH PATIENT 1 02/04/2022 Consult Count Last Ordered Date First Orde red Date IP CONSULT TO UROLOGY 1 02/08/2022 IP CONSULT TO NEPHROLOGY 1 02/04/2022 IP CONSULT TO SPIRITUAL CARE 1 02/04/2022 IV Count Last Ordered Date First Orde red Date SALINE LOCK IV 1 02/04/2022 Admission Count Last Ordered Date First Orde red Date ADMIT TO INPATIENT 1 02/04/2022 Discharge Count Last Ordered Date First Orde red Date DISCHARGE PATIENT 1 02/12/2022 CORE MEASURES Count Last Ordered Date First Ord ered Date REASON FOR NO VTE PROPHYLAXIS AT ADMISSION 1 02/04/2022 documented in this encounter Care Teams Trench Digger Helper Relationship Specialty Start Date End Date Hero Acevedo MD [address] Duncan SINGH [address] [place] [id number] PCP - General Cardiovascular Disease 11/23/17 3 documented as of this encounter
--- OUTSIDE RECORDS SUMMARY | 2024-03-04 10:35 | XMS_ITS | Encounter Summary ---
Author Organization [facility] Address [address] [place] [address] Care Team Providers Care Clinical Trial Manager Name Role Phone Hero Acevedo MD Primary Care Provider [phone] Encounter Details Date Type Department Care Team (Late st Contact Info) Description 02/12/[address] [facility] Nephrology at [place] [id number] [place] [address] Feliberto Munoz MD [facility] [address] [place] [address] Social History Tobacco Use Types Packs/Day Years [...] on file Legal Sex Male 3:46 AM EMPLOYMENT TRAINER Gender Identity Not on file Sexual Orientation Not on file documented as of this encounter Miscellaneous Notes * Addendum Note - Alberto Andrea MA - 02/13/2022 11:38 AM CSTAddended by: ALBERTO ANDREA on: 02/13/2022 11:38 AM Modules accepted: Orders OYMENT TRAINER * Telephone Encounter - Alberto Andrea MA - 02/13/2022 11:36 AM CST Patient contacted and informed. Lab order entered for [facility], patient will have labs done next week. Appointment canceled for 03/05/22. OYMENT TRAINER * Telephone Encounter - Feliberto Munoz MD - 02/12/2022 3:47 PM CST Dc from [facility] today. Was scheduled to see me in the office for the 1st time this month. Seen in hospital instead. Would check a repeat BMP next week please and we can reschedule our visit for down theroad if all labs are stable OYMENT TRAINER documented in this encounter Plan of Treatment Not on file documented as of this encounter Procedures Procedure Name Priority Date/Time Associated Diagnosis Comments BASIC METABOLIC PANEL Routine 02/17/2022 10:33 AM EMPLOYMENT TRAINER Hyperkalemia Hydronephrosis, unspecified hydronephrosis type documented in this encounter Results * (ABNORMAL) Basic metabolic panel (02/17/2022 10:33 AM EMPLOYMENT TRAINER) Glucose 73 65 - 99 mg/dL [facility] Comment: ? Fasting reference interval BUN 24 7 - 25 mg/dL [facility] Creatinine 2.19(H) 0.70 - 1.30 mg/dL [facility] eGFR 34(L) > OR = 60 mL/min/1.7 3m2 [facility] Comment: The eGFR is based on the CKD-EPI 2020 equation. To calculate the new eGFR from a previous Creatinine or Cystatin C result, go to https://www.kidney.org/professionals/ kdoqi/gfr%5Fcalculator BUN/creat ratio 11 6 - 22 (calc) [facility] Sodium 139 135 - 146 mmol/L [facility] Potassium, pl 5.7(H) 3.5 - 5.3 mmol/L [facility] Chloride 106 98 - 110 mmol/L [facility] CO2 30 20 - 32 mmol/L [facility] Calcium 8.9 8.6 - 10.3 mg/dL [facility] Blood 02/17/2022 10:3 3 AM EMPLOYMENT TRAINER 02/17/2022 10:34 AM EMPLOYMENT TRAINER us Feliberto Munoz MD LAB BLOOD ORDERABLES Final Re sult [facility] [address] [place] [address] documented in this encounter Visit Diagnoses Diagnosis Hyperkalemia- Primary Hyperpotassemia Hydronephrosis, unspecified hydronephrosis type documented in this encounter Care Teams Clinical Trial Manager Relationship Specialty Start Date End Date Hero Acevedo MD [facility] [facility] [address] [place] [address] PCP - General Cardiovascular Disease 11/23/17 3 documented as of this encounter
--- OUTSIDE RECORDS SUMMARY | 2024-03-04 10:35 | XMS_ITS | Encounter Summary ---
Author Organization [facility] Healthcare Address [address] [place] [address] Care Team Providers Care Net Mender Name Role Phone Hero Acevedo MD Primary Care Provider [phone] Reason for Visit * Reason Comments Abnormal Lab Encounter Details Date Type Department Care Team (Late st Contact Info) Description 01/20/2022 1:16 AM [facility] - 01/20/2022 3:33 AM [facility] Emergency [address] [address] Chronic kidney disease, unspecified CKD stage (Primary Dx); Hyperkalemia; Hypertension, unspecified type Discharge Disposition: Discharge to home or [...] on file Legal Sex Male 3:46 AM [employer] [facility] Gender Identity Not on file Sexual Orientation Not on file documented as of this encounter Last Filed Vital Signs Vital Sign Reading Time Taken Comments Blood Pressure 179/100 01/20/2022 3:00 AM [facility] Pulse 57 01/20/2022 3:00 AM [facility] Temperature 36.5 ??C (97.7 ??F) 01/19/2022 5:44 PM CS T Respiratory Rate 14 01/20/2022 3:00 AM [facility] Oxygen Saturation 100% 01/20/2022 3:00 AM [facility] Inhaled Oxygen Concentration - - Weight 90.5 kg (199 lb 8.3 oz) 01/19/2022 5:44 P M [facility] Height 185.4 cm (6' 1 ) 01/19/2022 5:44 PM [facility] Body Mass Index 26.32 01/19/2022 5:44 PM [facility] documented in this encounter Discharge Instructions * Discharge Instructions* Willy Harris PA - 01/20/2022 1:43 AM [facility] Return to ER immediately for any new or worsening symptoms. Follow-up as recommended is mandatory. You MUST follow up for further evaluation of all incidental abnormal radiographic and laboratory findings. Have your physician obtain records from this visit and address all the incidental abnormal findings. This may include final results of lab testing, cultures, final x-ray reports which may not have been available during the time of the visit. [facility] * Attachments The following attachments cannot be sent through Care Everywhere. * Chronic Kidney Disease (AfterCare(R) Instructions(ER/ED)) (Swiss) documented in this encounter Medications at Time of Discharge albuterol HFA (ProAir HFA) 90 mcg/actuation inhalerIndications :Moderate persistent asthma without complication Inhale 2 puffs every 4 (four) hours as needed for wheezing or shortness of breath 3 each 3 01/01/2022 cholecalciferol (VITAMIN D-3) 25 mcg (1,000 unit) tablet Take 4 tablets (4,000 Units total) by mouth daily PARoxetine (PAXIL) 30 mg tabletIndications: Depression, unspecified depression type Take 1 tablet (30 mg total) by mouth every morning. 30 tablet 3 11/29/2017 polycarbophil (FIBERCON) 625 mg tablet Take 1 tablet (625 mg total) by mouth daily caprylic/capric triglyceride (CAPRYLIC-CAPRIC TRIGLY, BULK, MISC) 2 ostomy supply (ENEMA BAG MISC) Coffee Enema 2 sulfamethoxazole-t rimethoprim (BACTRIM DS) 800-160 mg per tabletIndications: Acute cystitis with hematuria One tab Bid x 2 wks then one tab at night for 2 weeks 42 tablet 11/28/2021 2 venlafaxine XR (EFFEXOR-XR) 37.5 mg 24 hr [...] documented in this encounter ED Notes * Willy Harris PA - 01/20/2022 1:40 AM CST HPI Chief Complaint Patient presents with Abnormal Lab HPI 3:16 AM Jean-Pierre Sofia is a 56 y.o. male presenting to the ED due to abnormal labs. Patient states he had routine outpatient lab work done on Wednesday by his primary care provider. Patient was toldtoday his potassium was elevated and he needed to report to the emergency department. Patient states over the last 3 weeks he has had intermittent cramping and bilateral hamstrings. Patient reports feelings of dehydration which has been going on for a few months. He denies chest pain, shortness of breath, abdominal pain, nausea, vomiting, lightheadedness, diarrhea, or any other complaints. Patient History: Past Medical History: Diagnosis Date [...] medications for this encounter. Current Outpatient Medications: albuterol HFA (ProAir HFA) 90 mcg/actuation inhaler caprylic/capric triglyceride (CAPRYLIC-CAPRIC TRIGLY, BULK, MISC) cholecalciferol (VITAMIN D-3) 25 mcg (1,000 unit) tablet ostomy supply (ENEMA BAG MISC) PARoxetine (PAXIL) 30 mg tablet polycarbophil (FIBERCON) 625 mg tablet sulfamethoxazole-trimethoprim (BACTRIM DS) 800-160 mg per tablet venlafaxine XR (EFFEXOR-XR) 37.5 mg 24 hr capsule Wixela Inhub 250-50 mcg/dose diskus inhaler Review of Systems Review of Systems All other systems reviewed and are negative. All systems reviewed and are neg or non contributory for this patients presentation today other than as stated in the HPI . Physical Exam ED Triage Vitals Temp Pulse Resp BP SpO2 01/19/22 1744 01/19/22174301/19/22174301/19/22174301/19/221743 36.5 ??C (97.7 ??F) 60 16 (!) 186/112 99 % Temp src Heart Rate Source Patient Position BP Location FiO2 (%) 01/19/22 17401/19/22 17401/19/22203701/19/221743 -- Oral Pulse Oximetry Sitting Left arm Height Height Method Weight Weight Method 01/19/22 17401/19/22 17401/19/22174301/19/221743 1.854 m (6' 1 ) Stated 90.5 kg (199 lb 8.3 oz) Standing scale Physical Exam Vitals and nursing note reviewed. Constitutional: Appearance: Normal appearance. HENT: Head: Normocephalic and atraumatic. Right Ear: External ear normal. Left Ear: External ear normal. Nose: Nose normal. Eyes: Extraocular Movements: Extraocular movements intact. Conjunctiva/sclera: Conjunctivae normal. Pupils: Pupils are equal, round, and reactive to light. Cardiovascular: Rate and Rhythm: Normal rate and regular rhythm. Pulses: Normal pulses. Heart sounds: Normal heart sounds. Pulmonary: Effort: Pulmonary effort is normal. Breath sounds: Normal breath sounds. Abdominal: General: Bowel sounds are normal. Palpations: Abdomen is soft. Tenderness: There is no abdominal tenderness. There is no guarding or rebound. Musculoskeletal: General: Normal range of motion. Cervical back: Neck supple. Skin: General: Skin is warm and dry. Neurological: Mental Status: He is alert and oriented to person, place, and time. Psychiatric: Mood and Affect: Mood normal. Behavior: Behavior normal. Procedures MDM Labs Reviewed CBC WITH AUTO DIFFERENTIAL - Abnormal Result Value WBC 5.5 Hgb 12.9 (*) Hct 38.9 Plt 202 MPV 10.6 RBC 4.17 (*) MCV 93.3 MCH 30.9 MCHC 33.2 RDW CV 12.9 RDW SD 44.1 NRBC abs 0.00 COMPREHENSIVE METABOLIC PANEL - Abnormal Sodium 133 (*) Potassium, pl 5.0 (*) Chloride 102 CO2 24 Anion gap 7 BUN 24 Creatinine 2.30 (*) Glucose 63 (*) Calcium 9.6 Bilirubin, total 0.3 Protein, pl 7.7 Albumin 4.2 Alk phos 116 ALT 19 AST 20 POCT GLUCOSE DEVICE - Abnormal Glucose, POC 51 (*) Glucose comment 1 Use This Result TROPONIN T HIGH-SENSITIVITY SERIES (BASELINE, 2HR, 4HR, 6HR) Trop T hs 14 MAGNESIUM Magnesium 1.8 CREATINE KINASE (CK), TOTAL CK 153 LIPASE Lipase 60 DIFFERENTIAL AUTO Neutrophil abs 3.5 Imm gran abs 0.0 Lymphocyte abs 1.4 Monocyte abs 0.5 Eosinophil abs 0.1 Basophil abs 0.1 Neutrophil pct 63.5 Imm gran pct 0.2 Lymphocyte pct 25.0 Monocyte pct 8.2 Eosinophil pct 1.8 Basophil pct 1.3 TROPONIN T HIGH-SENSITIVITY 4-HR Trop T hs 14 Trop T hs delta 0 Trop T hs interp Insignificant EGFR eGFR 32 PHOSPHORUS TROPONIN T HIGH-SENSITIVITY 2-HOUR POCT GLUCOSE DEVICE Glucose, POC 116 Glucose comment 1 Use This Result Glucose comment 2 Will Notify Nurse POCT GLUCOSE DEVICE Glucose, POC 93 XR Chest 1 Vw Portable Final Result BP (!) 183/97 Pulse 52 Temp 36.5 ??C (97.7 ??F) (Oral) Resp 20 Ht 185.4 cm (6' 1 ) Wt 90.5 kg (199 lb 8.3 oz) SpO2 100% BMI 26.32 kg/m?? MDM Amount and/or Complexity of Data Reviewed Clinical lab tests: reviewed Tests in the radiology section of CPT??: reviewed Tests in the medicine section of CPT??: reviewed Decide to obtain previous medical records or to obtain history from someone other than the patient:yes ED Course as of 01/20/22315 Time: 01/20 142 Comment: Creatinine 2.3. Potassium 5. Patient is currently following with his primary care providerregarding elevated creatinine. EKG unremarkable. Chest x- ray normal. Patient currently denies any symptoms. Discussed all results with patient. Discussed patient case with Dr. Díaz. Will give a Lof IV fluids and plan for discharge home. Will provide follow-up with nephrology. Patient instructed to also follow up closely with his primary care provider. By: Willy Harris PA Time: 01/20 315 Comment: Pt found to have elevated blood pressure in ED > 119/79, pt advised to follow up closely as outpatient for further evaluation. Denies chest pain, SOB, headache, edema. Asymptomatic hypertension. Risks of chronic hypertension discussed with patient. Patient with low blood sugar in ED. Patient states he last ate an avocado early Wednesday morning. He did not have anything else to eat or drink prior to arrival to ED. Patient was provided with a juice and sandwich with improvement of glucose. By: Willy Harris PA This examination was transcribed using the [employer] voice recognition system without human parachute marker. In an effort to expedite patient care, this report has not been adjusted for typographical, grammatical, and syntax by a trained medical assistant per diem. Clinical Impression: Chronic kidney disease, unspecified CKD stage Hyperkalemia Hypertension, unspecified type Willy Harris PA 01/20/22 5050 Cosigned by Feliberto Díaz MD at 01/21/2022 1:48 PM [facility] * Zahra Nettles RN - 01/19/2022 9:44 PM CST Pt provided with sandwich and grape juice for POC glucose of 51. Zahra Nettles RN 01/19/22 0093 [facility] * Abby Bell RN - 01/19/2022 6:25 PM CST Pt had outpatient labs drawn 2 days ago. Was notified today to go to ED (elevated K+ 6.4). Pt c/o feeling dehydrated. Muscle tight and cramping to legs. Denies CP, dizziness, N/V. Reports constipation. [facility] documented in this encounter Plan of Treatment Not on file documented as of this encounter Procedures Procedure Name Priority Date/Time Associated Diagnosis Comments POCT GLUCOSE DEVICE Routine 01/20/2022 1 2:49 AM [facility] TROPONIN T HIGH-SENSITIVITY 4-HR Timed 01/19/2022 11:15 PM [facility] POCT GLUCOSE DEVICE Routine 01/19/2022 1 0:22 PM [facility] POCT GLUCOSE DEVICE Routine 01/19/2022 9 :39 PM [facility] XR CHEST 1 VIEW ED 01/19/2022 7:04 PM [facility] TROPONIN T HIGH-SENSITIVITY SERIES (BASELINE, 2HR, 4HR, 6HR) STAT 01/19/2022 6:54 PM [facility] EGFR STAT 01/19/2022 6:54 PM [facility] DIFFERENTIAL AUTO STAT 01/19/2022 6:5 4 PM [facility] CBC WITH AUTO DIFFERENTIAL STAT 01/19/2022 6:54 PM [facility] MAGNESIUM STAT 01/19/2022 6:54 PM [facility] LIPASE STAT 01/19/2022 6:54 PM [facility] CREATINE KINASE (CK), TOTAL STAT 01/19/2022 6:54 PM [facility] COMPREHENSIVE METABOLIC PANEL STAT 01/19/2022 6:54 PM [facility] ECG 12-LEAD STAT 01/19/2022 6:40 PM [facility] documented in this encounter Results * POCT glucose (01/20/2022 12:49 AM [facility] [employer] [facility]) Pathologist [facility] [place] Glucose, POC 93 70 - 199 mg/dL SERA ACKERMAN Blood 01/20/2022 12:4 9 AM [facility] 01/20/2022 12:49 AM [facility] [employer] [facility] us Notinfile Unknown LAB POCT ORDERABLES - DEVICE F inal Result SERA [address] [facility] Department [place] [address] * Troponin T high-sensitivity 4-hour (01/19/2022 11:15 PM [facility] [employer] [facility]) Pathologist [facility] [place] Trop T hs 14 <=22 ng/L SERA ACKERMAN Comment: Interpretive Data For further hscTnT resources including the diagnostic algorithm and an aid in interpretation, copy and paste this link: https://nrl.testcatalog.org/show/hsTrop Current Interpretive Data last revised 2020. Trop T hs delta 0 ng/L [facility] Trop T hs interp Insignificant [facility] Blood 01/19/2022 11:1 5 PM [employer] 01/19/2022 11:43 PM [employer] [employer] Willy Harris PA LAB BLOOD ORDERABLES Final R esult Performing Organization Address [facility] Co de Phone Number [address] [place] [address] * POCT glucose (01/19/2022 10:22 PM [facility] [employer] [facility]) Glucose, POC 116 70 - 199 mg/dL [facility] Glucose comment 1 Use This Result [facility] Glucose comment 2 Will Notify Nurse [facility] Blood 01/19/2022 10:2 2 PM [facility] 01/19/2022 10:22 PM [facility] Result [facility] Notinfile Unknown LAB POCT ORDERABLES - DEVICE F inal Result Performing Organization Address [facility] de Phone Number [address] [place] [address] * (ABNORMAL) POCT glucose (01/19/2022 9:39 PM [facility] [employer] [facility]) Glucose, POC 51(C) 70 - 199 mg/dL [facility] Glucose comment 1 Use This Result [facility] Blood 01/19/2022 9:39 PM [facility] 01/19/2022 9:39 PM [facility] Result [facility] Notinfile Unknown LAB POCT ORDERABLES - DEVICE F inal Result Performing Organization Address [facility] de Phone Number [address] [place] [address] * XR Chest 1 Vw Portable (01/19/2022 7:04 PM [employer] [employer] [facility]) Anatomical Region Laterality Modality Body, Chest N/A Computed Radiogr aphy 01/19/2022 7:46 PM [employer] [facility] Narrative 01/19/2022 7:47 PM [employer] [facility] EXAM DESCRIPTION: ?? XR CHEST 1 VIEW REASON FOR STUDY: ?? dyspnea, hypokalemia, dyspnea, hypertension today TECHNIQUE: ?? One ??radiographic view of the chest acquired. COMPARISON: ?? Chest x-ray 07/25/2020 FINDINGS: LUNGS/PLEURA: ?? No focal consolidation or pneumothorax. No pleural effusion. HEART/MEDIASTINUM: ?? Heart size is normal. Normal mediastinal and hilar contours. HARDWARE/LINES/TUBES: ?? None. BONES: ?? No acute findings. OTHER: ?? No other significant finding. IMPRESSION: ?? No acute cardiopulmonary abnormality. THIS IS AN ELECTRONICALLY VERIFIED FINAL REPORT 01/19/2022 7:47 PM - Electronically signed by ??Dionicio LUIS D: ??01/19/2022 7:47 PM T: Report ID: [id number] Reading Location: ??[id number] Procedure Note Dionicio Mccullough MD - 01/19/2022 EXAM DESCRIPTION: XR CHEST 1 VIEW REASON [...] FINAL REPORT 01/19/2022 7:47 PM - Electronically signed by Dionicio LUIS T: Report ID: [id number] Reading Location: [place] [id number] Willy [place] IMG XR PROCEDURES Final Resu lt * eGFR (01/19/2022 6:54 PM [employer] [employer] [facility]) eGFR 32 mL/min/1. 73 m2 SERA ACKERMAN Comment: Interpretive [...] interpretive data was last reviewed 2021. Blood 01/19/2022 6:54 PM [employer] [facility] 01/19/2022 7:01 PM [employer] [employer] [facility] Willy [place] LAB BLOOD ORDERABLES Final R esult SERA [address] [facility] Department [place] [address] * Differential, auto (01/19/2022 6:54 PM [facility]) Pathologist [facility] [place] Neutrophil abs 3.5 1.7 - 6.5 K/cumm [facility] Imm gran abs 0.0 0.0 - 0.1 K/cumm [facility] Lymphocyte abs 1.4 0.8 - 3.3 K/cumm [facility] Monocyte abs 0.5 0.2 - 0.8 K/cumm [facility] Eosinophil abs 0.1 0.0 - 0.5 K/cumm [facility] Basophil abs 0.1 0.0 - 0.1 K/cumm [facility] Neutrophil pct 63.5 % [facility] Comment: Interpretive Data Percent cell count reference ranges are not reported, since discordance with absolute values may lead to misinterpretation of CBC data. Current Interpretive Data was last revised on 2017. Imm gran pct 0.2 % [facility] Comment: Interpretive Data Percent cell count reference ranges are not reported, since discordance with absolute values may lead to misinterpretation of CBC data. Current Interpretive Data was last revised on 2017. Lymphocyte pct 25.0 % [facility] Comment: Interpretive Data Percent cell count reference ranges are not reported, since discordance with absolute values may lead to misinterpretation of CBC data. Current Interpretive Data was last revised on 2017. Monocyte pct 8.2 % [facility] Comment: Interpretive Data Percent cell count reference ranges are not reported, since discordance with absolute values may lead to misinterpretation of CBC data. Current Interpretive Data was last revised on 2017. Eosinophil pct 1.8 % [facility] Comment: Interpretive Data Percent cell count reference ranges are not reported, since discordance with absolute values may lead to misinterpretation of CBC data. Current Interpretive Data was last revised on 2017. Basophil pct 1.3 % [facility] Comment: Interpretive Data Percent cell count reference ranges are not reported, since discordance with absolute values may lead to misinterpretation of CBC data. Current Interpretive Data was last revised on 2017. Blood 01/19/2022 6:54 PM [facility] [facility] 01/19/2022 7:01 PM [employer] [facility] us Willy [place] LAB BLOOD ORDERABLES Final R esult [employer] [facility] [employer] [facility] [address] [facility] Department [place] [address] * Lipase (01/19/2022 6:54 PM [employer] [employer]) Lipase 60 10 - 99 Units/L [facility] Blood 01/19/2022 6:54 PM [employer] [employer] [facility] 01/19/2022 7:01 PM [employer] [employer] [facility] Willy [place] LAB BLOOD ORDERABLES Final R esult Performing Organization Address City/[facility]/ZIP Co de Phone Number [address] [place] [address] * Creatine kinase (CK), total (01/19/2022 6:54 PM [facility] [employer] [facility]) CK 153 40 - 300 Units/L [facility] Blood 01/19/2022 6:54 PM [employer] [facility] 01/19/2022 7:01 PM [employer] [facility] Willy [place] LAB BLOOD ORDERABLES Final R esult Performing Organization Address [facility] Co de Phone Number [address] [place] [address] * Magnesium (01/19/2022 6:54 PM [facility] [employer] [facility]) Magnesium 1.8 1.4 - 2.5 mg/dL SERA Blood 01/19/2022 6:54 PM [employer] [employer] [facility] 01/19/2022 7:01 PM [employer] [employer] [facility] Willy [place] LAB BLOOD ORDERABLES Final R esult Performing Organization Address [facility] Co de Phone Number [address] [address] * Troponin T high-sensitivity series (baseline, 2hr, 4hr, 6hr) (01/19/2022 6:54 PM [facility] [employer] [facility]) Trop T hs 14 <=22 ng/L [facility] Comment: Interpretive Data For further hscTnT resources including the diagnostic algorithm and an aid in interpretation, copy and paste this link: https://nrl.testcatalog.org/show/hsTrop Current Interpretive Data last revised 2020. Blood 01/19/2022 6:54 PM [employer] [employer] [facility] 01/19/2022 7:01 PM [employer] [facility] us Willy [place] LAB BLOOD ORDERABLES Final R esult [facility] [address] [facility] Department [place] [address] * (ABNORMAL) Comprehensive metabolic panel (01/19/2022 6:54 PM [employer]) Sodium 133(L) 135 - 145 mmol/L [facility] Potassium, pl 5.0(H) 3.3 - 4.9 mmol/L [facility] Chloride 102 97 - 110 mmol/L [facility] CO2 24 22 - 32 mmol/L [facility] Anion gap 7 2 - 15 mmol/L [facility] BUN 24 8 - 25 mg/dL [facility] Creatinine 2.30(H) 0.80 - 1.30 mg/dL [facility] Glucose 63(L) 70 - 199 mg/dL [facility] Comment: Interpretive Data Fasting glucose >/= 126 [...] 2017. Calcium 9.6 8.5 - 10.3 mg/dL [facility] Bilirubin, total 0.3 0.1 - 1.2 mg/dL [facility] Protein, pl 7.7 6.5 - 8.5 g/dL [facility] Albumin 4.2 3.5 - 5.0 g/dL [facility] Alk phos 116 40 - 130 Units/L [facility] ALT 19 7 - 55 Units/L [facility] AST 20 10 - 50 Units/L [facility] Blood 01/19/2022 6:54 PM [facility] [employer] [facility] 01/19/2022 7:01 PM [employer] [employer] Willy [place] LAB BLOOD ORDERABLES Final R esult Performing Organization Address City/[facility] Co de Phone Number ELINOR[address] [place] [address] * (ABNORMAL) CBC with auto differential (01/19/2022 6:54 PM [facility] [employer] [facility]) [facility] WBC 5.5 3.8 - 9.9 K/cumm [facility] Hgb 12.9(L) 13.0 - 17.5 g/dL [facility] Hct 38.9 38.9 - 50.3 % [facility] Plt 202 150 - 400 K/cumm [facility] MPV 10.6 9.1 - 12.3 fL [facility] RBC 4.17(L) 4.30 - 5.80 M/cumm [facility] MCV 93.3 81.3 - 96.4 fL [facility] MCH 30.9 27.1 - 33.3 pg [facility] MCHC 33.2 32.3 - 35.7 g/dL [facility] RDW CV 12.9 11.1 - 14.9 % [facility] RDW SD 44.1 35.7 - 48.1 fL [facility] NRBC abs 0.00 0.00 - 0.01 K/cumm [facility] Blood 01/19/2022 6:54 PM [employer] 01/19/2022 7:01 PM [employer] Willy [place] LAB BLOOD ORDERABLES Final R esult Performing Organization Address [facility] Co de Phone Number ELINOR[address] [place] [address] * ECG 12 lead (01/19/2022 6:40 PM [facility] [employer]) [facility] Ventricular Rate EKG/Min 61 BPM [facility] Atrial Rate 61 BPM [facility] CA-Interval (MSEC) 146 ms [facility] QRS-Interval (MSEC) 74 ms [facility] QT-Interval (MSEC) 392 ms [facility] QTc 394 ms [facility] P [place] 36 degrees [facility] R [place] -24 degrees [facility] T [place] 70 degrees [facility] Diagnosis Normal sinus rhythm Normal ECG No previous ECGs available [facility] 01/19/2022 6:40 PM [employer] 01/19/2022 9:31 PM [employer] us Willy [place] ECG ORDERABLES Final Result [facility] documented in this encounter Visit Diagnoses Diagnosis Chronic kidney disease, unspecified CKD stage- Primary Hyperkalemia Hyperpotassemia Hypertension, unspecified type documented in this encounter Administered Medications Inactive Administered Medications - up to 3 most recent administrations Medication Order MAR Action Action Date Dose Rate Site sodium chloride 0.9% bolus 1,000 mL 1,000 mL, intravenous, at 1,000 mL/hr, Administer over 1 Hours, Once, On Wed01/20/22 at 0114, For 1 dose New Bag 01/20/2022 1:32 AM [employer] 1,000 mL 100 0 mL/hr documented in this encounter Active and Recently Administered Medications Due to Daylight Saving Time, this section may contain times in both CDT and [employer]. Scheduled Medication Order 01/18/2022 01/19/2022 01/20/2022 sodium chloride 0.9% bolus 1,000 mL (COMPLETED) 1,000 mL, intravenous, at 1,000 mL/hr, Administer over 1 Hours, Once, On Wed01/20/22 at 0114, For 1 dose 0132 (New Bag - Prov ider: Cady Kohli RN)[id number] (Stopped - Provider: Leonidas Ahmadi RN) documented in this encounter Orders Medications Ordered That Zach ht Not Have Been Administered Count Last Ordered Date First Ordered Date sodium chloride 0.9% bolus 1,000 mL 1 01/20 documented in this encounter Care Teams Net Mender Relationship Specialty Start Date End Date Hero Acevedo MD [address] [place] [address] DR Duncan SINGH [address] [place] [id number] PCP - General Cardiovascular Disease 11/23/17 3 documented as of this encounter
--- OUTSIDE RECORDS SUMMARY | 2024-03-04 10:35 | XMS_ITS | Encounter Summary ---
Author Organization [facility] Address [address] [place] [address] Care Team Providers Care Junior Qa Analyst Name Role Phone Hero Acevedo MD Primary Care Provider [phone] Reason for Referral * Diagnostic Imaging (Routine) - Closed Specialty Diagnoses / Procedures Referred By Margie norton Referred To Contact Diagnoses Renal insufficiency Essential hypertension, malignant Procedures US Renal Doppler US Renal Doppler Hero Acevedo MD [facility] [address] [place] [address] Phone: tel: fax: [address] [phone] Referral ID Status Reason Start Date Expiration Date Visits Re quested Visits Authorized [id number] Closed 01/28/2022 02/27/2023 1 1 ESTATE VALUER Reason for Visit * Diagnostic Imaging (Routine) - Closed Specialty Diagnoses / Procedures Referred By Margie norton Referred To Contact Diagnoses Renal insufficiency Essential hypertension, malignant Procedures US Renal Doppler US Renal Doppler Hero Acevedo MD [facility] [address] [place] [address] Phone: tel: fax: [address] [phone] Referral ID Status Reason Start Date Expiration Date Visits Re quested Visits Authorized [id number] Closed 01/28/2022 02/27/2023 1 1 Encounter Details Date Type Department Care Team (Latest Contact Info) Description 02/02/2022 8:56 AM REAL ESTATE VALUER - 02/02/2022 11:59 PM REAL ESTATE VALUER Hospital Encounter [facility] [address] [place] [address] Renal insufficiency; Essential hypertension, malignant Discharge Disposition: Discharge to home or self [...] on file Legal Sex Male 3:46 AM REAL ESTATE VALUER Gender Identity Not on file Sexual Orientation [...] caprylic/capric triglyceride (CAPRYLIC-CAPRIC TRIGLY, BULK, MISC) 2 chlorthalidone 25 mg tablet Take 1 tablet (25 mg total) by mouth daily 30 tablet 01/22/2022 2 ostomy supply (ENEMA BAG MISC) Coffee Enema 2 tamsulosin (FLOMAX) 0.4 mg extended release capsule Take 1 capsule (0.4 mg total) by mouth nightly 30 capsule 02/02/2022 2 venlafaxine XR (EFFEXOR-XR) 37.5 mg 24 [...] Name Priority Date/Time Associated Diagnosis Comments US RENAL DOPPLER Schedule Routine, Read Routine (OP Routine) 02/02/2022 10:13 AM REAL ESTATE VALUER Renal insufficiency Essential hypertension, malignant documented in this encounter Results * US Renal Doppler (02/02/2022 10:13 AM REAL ESTATE VALUER) Anatomical Region Laterality Modality Vascular N/A Ultrasound 02/02/2022 Narrative 02/16/2022 4:58 PM REAL ESTATE VALUER [employer] Job ID: [id number] [employer] Document ID: [id number] Dictated date/time: REASON FOR STUDY Hypertension. FINDINGS The renal arteries are patent bilaterally. ??The peak systolic velocity on the right is 123 cm/sec and on the left is 113 cm/sec. ??On the left side these velocities from the midportion of the the renal artery, the proximal portion of renal artery could not be well visualized. ??Renal aortic ratios are 2.0 on the right and 1.5 on the left. IMPRESSION Patent renal arteries bilaterally with no significant stenosis. Job ID/Internal Job ID: ??[id number] Hero Acevedo MD [facility] US PROCEDURES Final Resu lt documented in this encounter Visit Diagnoses Diagnosis Renal insufficiency Unspecified disorder of kidney and ureter Essential hypertension, malignant documented in this encounter Care Teams Junior Qa Analyst Relationship Specialty Start Date End Date Hero Acevedo MD [address] [facility] [address] Duncan SINGH [address] [place] [address] PCP - General Cardiovascular Disease 11/23/17 3 documented as of this encounter
--- OUTSIDE RECORDS SUMMARY | 2024-03-04 10:35 | XMS_ITS | Encounter Summary ---
Author Organization [facility] Address [address] [facility] [address] [place] [address] Care Team Providers Care Barley Steeper Name Role Phone Hero Acevedo MD Primary Care Provider [phone] Encounter Details Date Type Department Care Team (Late st Contact Info) Description 01/26/2022 Telephone [facility] Nephrology at [place] [id number] [facility] [address] [place] [address] Feliberto Munoz MD [address] [place] [address] [address] [place] [address] Social History Tobacco Use Types Packs/Day Years [...] on file Legal Sex Male 3:46 AM PLANNING ENGINEER Gender Identity Not on file Sexual Orientation Not on file documented as of this encounter Miscellaneous Notes * Telephone Encounter - Nayla Bales MA - 01/26/2022 3:57 PM PLANNING ENGINEER Pt was informed. NING ENGINEER * Telephone Encounter - Feliberto Munoz MD - 01/26/2022 3:52 PM CST Fluid intake will vary depending on activity and temperature. Would just drink if thirsty and no set amount per day. NING ENGINEER * Telephone Encounter - Nayla Bales MA - 01/26/2022 10:57 AM PLANNING ENGINEER I will get the potassium diet sheet sent to pt. How about his fluid intake? Stomach Acid issue? NING ENGINEER * Telephone Encounter - Ronaldo Horton - 01/26/2022 8:47 AM CST Patient called stating he was told that he needs to eat low potassium foods. He was wanting to get a list of those foods if possible. He also had a question about how much water he is supposed to drink. He thought 40oz of water everyday. And he also stated that 2 doctors told him that his stomach is not producing as much acid as it should. [phone] NING ENGINEER documented in this encounter Plan of Treatment Not on file documented as of this encounter Visit Diagnoses Not on filedocumented in this encounter Care Teams Barley Steeper Relationship Specialty Start Date End Date Hero Acevedo MD [address] [place] [address] DR Duncan SINGH [address] [place] [address] PCP - General Cardiovascular Disease 11/23/17 3 documented as of this encounter
--- OUTSIDE RECORDS SUMMARY | 2024-03-04 10:35 | XMS_ITS | Encounter Summary ---
Author Organization [facility] Address [address] [facility] [address] [place] [address] Phone Care Team Providers Care Air Tank Assembler Name Role Phone Hero Acevedo MD Primary Care Provider [phone] Encounter Details Date Type Department Care Team (Late st Contact Info) Description 02/18/2022 Telephone [facility] [address] [facility] [address] [place] [address] Haleigh Finley RMA Social History [...] on file Legal Sex Male 3:46 AM METAL FABRICATION SUPERVISOR Gender Identity Not on file Sexual Orientation Not on file documented as of this encounter Miscellaneous Notes * Telephone Encounter - Haleigh Finley RMA - 02/18/2022 8:49 AM CST Fax # provided per patients request for FMLA ppwk, pt also requested a leg bag for his catheter. Will leave one for him at the vest front presser @ [facility]. [place] TELLO L FABRICATION SUPERVISOR documented in this encounter Plan of Treatment Not on file documented as of this encounter Visit Diagnoses Not on filedocumented in this encounter Care Teams Air Tank Assembler Relationship Specialty Start Date End Date Hero Acevedo MD [facility] [address] Duncan SINGH [address] [place] [address] PCP - General Cardiovascular Disease 11/23/17 3 documented as of this encounter
--- OUTSIDE RECORDS SUMMARY | 2024-03-04 10:35 | XMS_ITS | Encounter Summary ---
Author Organization [facility] Address [address] [place] [address] [address] Phone Care Team Providers Care Alarm Mechanic Name Role Phone Hero Acevedo MD Primary Care Provider [phone] Encounter Details Date Type Department Care Team (Late st Contact Info) Description 02/17/2022 12:30 PM DESIGNER ARCHITECT Office Visit [address] [place] [address] Hero Acevedo MD [address] [place] [address] [facility] [address] [place] [address] Obstructive uropathy (Primary Dx) Social History Tobacco Use Types [...] on file Legal Sex Male 3:46 AM DESIGNER ARCHITECT Gender Identity Not on file Sexual Orientation Not on file documented as of this encounter Last Filed Vital Signs Vital Sign Reading Time Taken Comments Blood Pressure 130/80 02/17/2022 12:24 PM DESIGNER ARCHITECT Pulse 71 02/17/2022 12:24 PM DESIGNER ARCHITECT Temperature - - Respiratory Rate - - Oxygen Saturation 97% 02/17/2022 12:24 PM DESIGNER ARCHITECT Inhaled Oxygen Concentration - - Weight 91.2 kg (201 lb 1.6 oz) 02/17/2022 12:24 PM DESIGNER ARCHITECT Height - - Body Mass Index 26.54 02/04/2022 4:50 PM DESIGNER ARCHITECT documented in this encounter Progress Notes * Hero Acevedo MD - 02/17/2022 12:30 PM CST 56-year-old male seen to fill out [employer] papers he is had urinary incontinence for 8 months obstructive uropathy recurrent urinary infections now with an indwelling Roe being treated by urologist. He was hospitalized from February 04 to February 12 because of elevated potassium urinary infection and outflow obstruction and is followed by Dr. Munoz urologist who will evaluate when his catheter can come out and when he would be eligible to go back to work. Blood pressure today is 130/80 O2 sats are 97% pulse 71 no abdominal pain has an indwelling catheter taped to his right thigh GNER ARCHITECT documented in this encounter Plan of Treatment Not on file documented as of this encounter Visit Diagnoses Diagnosis Obstructive uropathy- Primary Urinary obstruction, unspecified documented in this encounter Care Teams Alarm Mechanic Relationship Specialty Start Date End Date Hero Acevedo MD [facility] [address] Duncan SINGH [address] [place] [address] PCP - General Cardiovascular Disease 11/23/17 3 documented as of this encounter
--- OUTSIDE RECORDS SUMMARY | 2024-03-04 10:35 | XMS_ITS | Encounter Summary ---
Author Organization [facility] Address [address] [place] [address] [address] Phone Care Team Providers Care Experimental Rocket Sled Mechanic Name Role Phone Hero Acevedo MD Primary Care Provider [phone] Encounter Details Date Type Department Care Team (Late st Contact Info) Description 01/22/2022 2:45 PM TWISTER HAND Office Visit [address] [place] [address] Hero Acevedo MD [address] [place] [address] [facility] [address] [place] [address] Renal insufficiency (Primary Dx) Social History Tobacco Use Types [...] on file Legal Sex Male 3:46 AM TWISTER HAND Gender Identity Not on file Sexual Orientation Not on file documented as of this encounter Last Filed Vital Signs Vital Sign Reading Time Taken Comments Blood Pressure 162/80 01/22/2022 2:27 PM TWISTER HAND Pulse 68 01/22/2022 2:27 PM TWISTER HAND Temperature - - Respiratory Rate - - Oxygen Saturation 92% 01/22/2022 2:27 PM TWISTER HAND Inhaled Oxygen Concentration - - Weight 91.4 kg (201 lb 9.6 oz) 01/22/2022 2:27 P M TWISTER HAND Height - - Body Mass Index 26.6 01/19/2022 5:44 PM TWISTER HAND documented in this encounter Progress Notes * Hero Acevedo MD - 01/22/2022 2:45 PM CST 56-year-old male with a history of hypertension recent urinary tract infect renal insufficiency with creatinine is 2.5-2.7. He has discussed with his it portfolio manager Dr. Munoz his hyperkalemia and has been on a low-potassium diet and has started him on 25 mg of chlorthalidone to lower potassiumand we are getting a renal sonogram Doppler of his renal arteries and kidneys to look for renal artery stenosis and renal causes of his hypertension and hyperkalemia. Blood pressure today 162/80 pulse 68 O2 sats 92% TER HAND documented in this encounter Plan of Treatment Not on file documented as of this encounter Visit Diagnoses Diagnosis Renal insufficiency- Primary Unspecified disorder of kidney and ureter documented in this encounter Discontinued Medications Medication Sig Discontinue Reason Start Date End Da te sulfamethoxazole-trimetho prim (BACTRIM DS) 800-160 mg per tabletIndications:Acute cystitis with hematuria One tab Bid x 2 wks then one tab at night for 2 weeks 11/28/2021 01/22/2022 documented as of this encounter Care Teams Experimental Rocket Sled Mechanic Relationship Specialty Start Date End Date Hero Acevedo MD [facility] [address] Duncan SINGH [address] [place] [address] PCP - General Cardiovascular Disease 11/23/17 3 documented as of this encounter
--- OUTSIDE RECORDS SUMMARY | 2024-03-04 10:35 | XMS_ITS | Encounter Summary ---
Author Organization [facility] Address [address] [facility] [address] [place] [address] Care Team Providers Care Anaesthesiologist Name Role Phone Hero Acevedo MD Primary Care Provider [phone] Encounter Details Date Type Department Care Team (Late st Contact Info) Description 01/22/2022 Telephone [facility] Nephrology at [place] [address] [facility] [address] [place] [address] Feliberto Munoz MD [address] [place] [address] [address] [place] [address] Social History Tobacco Use Types Packs/Day Years [...] on file Legal Sex Male 3:46 AM RETURN CHECKER Gender Identity Not on file Sexual Orientation Not on file documented as of this encounter Ordered Prescriptions Prescription Sig Dispense Quantity Refills Last Filled Start Date End Date chlorthalidone 25 mg tablet Take 1 tablet (25 mg total) by mouth daily 30 tablet 01/22/2022 02/12/2022 documented in this encounter Miscellaneous Notes * Telephone Encounter - Kaykay Andrea MA - 01/22/2022 3:29 PM CST Patient contacted and informed. Voiced no concerns. RN CHECKER * Telephone Encounter - Feliberto Munoz MD - 01/22/2022 3:11 PM CST Labs are not suggestive of volume depletion. Not sure how much coffee is in there but if a significant amount could contribute to hyperkalemia if labs were checked in the days following administration RN CHECKER * Telephone Encounter - Kaykay Andrea MA - 01/22/2022 1:42 PM CST Script sent out to listed pharmacy. RN CHECKER * Telephone Encounter - Dominique Leonardo - 01/22/2022 1:34 PM CST Spoke with the patient. He voiced his understanding. He was not adhering to a low K diet but will do so now. He was feeling ok. He will have labs repeated on Wednesday at [facility]. (Orders placed). He willhave the ultrasound done as well. He will order picker/assembler the new medication. He uses [facility] in [place]. He wanted to make sure you were aware that he was told he has an issue absorbing liquids. He wantedto know if he was dehydrated possibly? He asked if taking coffee enemas a couple times a month would be a reason any of this is happening? RN CHECKER * Telephone Encounter - Kaykay Andrea MA - 01/22/2022 1:19 PM CST LMOM requesting CB. RN CHECKER * Telephone Encounter - Kaykay Andrea MA - 01/22/2022 1:19 PM CST ----- Message from Feliberto Munoz MD sent at 01/22/2022 12:04 PM RETURN CHECKER ----- Patient is scheduled to see me in the near future for worsening kidney function and hyperkalemia. Repeat labs show continued hyperkalemia. Should be on a low- potassium diet already. Please start him on chlorthalidone 25 mg a day to assist with hyperkalemia. Please schedule him for a renal ultrasound with postvoid residual as well. Check a urinalysis and a spot urine albumin creatinine ratio and arepeat BMP on Wednesday. If he is feeling unwell have him proceed to the ER. Thank you RN CHECKER documented in this encounter Plan of Treatment Not on file documented as of this encounter Procedures Procedure Name Priority Date/Time Associated Diagnosis Comments ALBUMIN CREATININE RATIO, URINE Routine 01/26/2022 12:27 PM RETURN CHECKER Hyperkalemia BASIC METABOLIC PANEL Routine 01/26/2022 12:27 PM RETURN CHECKER Hyperkalemia documented in this encounter Results * (ABNORMAL) Basic metabolic panel (01/26/2022 12:27 PM RETURN CHECKER) Pathologist [facility] Glucose 85 65 - 99 mg/dL [facility] Comment: ? Fasting reference interval BUN 35(H) 7 - 25 mg/dL [facility] Creatinine 2.75(H) 0.70 - 1.30 mg/dL [facility] eGFR 26(L) > OR = 60 mL/min/1.7 3m2 [facility] [...] - 5.3 mmol/L [facility] Chloride 105 98 - 110 mmol/L [facility] CO2 25 20 - 32 mmol/L [facility] Calcium 8.7 8.6 - 10.3 mg/dL [facility] Blood 01/26/2022 12:2 7 PM RETURN CHECKER 01/26/2022 12:30 PM RETURN CHECKER Feliberto Munoz MD LAB BLOOD ORDERABLES Final Re sult Performing Organization Address [facility] Co de Phone Number [place] [address] [place] [address] * Albumin Creatinine Ratio, Urine (01/26/2022 12:27 PM RETURN CHECKER) Creatinine, ur 40 20 - 320 mg/dL [facility] Microalbumin, ur 0.6 See Note: mg/dL [facility] Comment: Reference Range: Reference Range Not established Microalbumin/creat ratio 15 <30 mcg/mg creat [facility] Comment: [...] to be within a diagnostic category. Urine 01/26/2022 12:2 7 PM RETURN CHECKER 01/26/2022 12:30 PM RETURN CHECKER Feliberto Munoz MD LAB URINE ORDERABLES Final Re sult Performing Organization Address [facility]/ZIP Co de Phone Number [place] [address] [place] [address] documented in this encounter Visit Diagnoses Diagnosis Hyperkalemia- Primary Hyperpotassemia documented in this encounter Care Teams Anaesthesiologist Relationship Specialty Start Date End Date Hero Acevedo MD [address] [facility] [address] Duncan SINGH [address] [place] [address] PCP - General Cardiovascular Disease 11/23/17 3 documented as of this encounter
--- OUTSIDE RECORDS SUMMARY | 2024-03-04 10:35 | XMS_ITS | Encounter Summary ---
Author Organization [facility] Address [address] [facility] [address] [place] [address] Care Team Providers Care Video Arcade Manager Name Role Phone Hero Acevedo MD Primary Care Provider [phone] Encounter Details Date Type Department Care Team (Late st Contact Info) Description 02/02/[address] [facility] Nephrology at [address] [place] [address] Feliberto Munoz MD [address] [place] [address] [address] [place] [address] Social History Tobacco Use Types Packs/Day Years [...] on file Legal Sex Male 3:46 AM STATE DIRECTOR Gender Identity Not on file Sexual Orientation Not on file documented as of this encounter Ordered Prescriptions Prescription Sig Dispense Quantity Refills Last Filled Start Date End Date tamsulosin (FLOMAX) 0.4 mg extended release capsule Take 1 capsule (0.4 mg total) by mouth nightly 30 capsule 02/02/2022 2 documented in this encounter Miscellaneous Notes * Telephone Encounter - Dominique Leonardo - 02/04/2022 11:30 AM CST The patient was contacted and told to go the ED due to lev Combs. He will be going to [facility]. E DIRECTOR * Addendum Note - Alberto Andrea MA - 02/02/2022 3:42 PM CSTAddended by: ALBERTO ANDREA on: 02/02/2022 03:42 PM Modules accepted: Orders E DIRECTOR * Addendum Note - Alberto Andrea MA - 02/02/2022 3:39 PM CSTAddended by: ALBERTO ANDREA on: 02/02/2022 03:39 PM Modules accepted: Orders E DIRECTOR * Telephone Encounter - Alberto Andrea MA - 02/02/2022 3:39 PM CST Patient contacted and informed. Lab orders entered for [employer] lab. US reordered and script sent out listed pharmacy. E DIRECTOR * Telephone Encounter - Feliberto Munoz MD - 02/02/2022 11:03 AM CST Contacted by vascular. Apparently a renal artery Doppler was ordered instead of a renal ultrasound with postvoid residual for some reason. Patient appears to have hydronephrosis on that study. Pleasestart him on tamsulosin 0.4 mg each evening and order an ultrasound with postvoid bladder as soon as possible and repeat a BMP please E DIRECTOR documented in this encounter Plan of Treatment Not on file documented as of this encounter Procedures Procedure Name Priority Date/Time Associated Diagnosis Comments BASIC METABOLIC PANEL Routine 02/03/2022 11:33 AM STATE DIRECTOR Hyperkalemia documented in this encounter Results * (ABNORMAL) Basic metabolic panel (02/03/2022 11:33 AM STATE DIRECTOR) Glucose 81 65 - 139 mg/dL [facility] Comment: ? Non-fasting reference interval BUN 24 7 - 25 mg/dL [facility] Creatinine 2.64(H) 0.70 - 1.30 mg/dL [facility] eGFR 27(L) > OR = 60 mL/min/1.7 3m2 [facility] Comment: The eGFR is based on the CKD-EPI 2020 equation. To calculate the new eGFR from a previous Creatinine or Cystatin C result, go to https://www.kidney.org/professionals/ kdoqi/gfr%5Fcalculator BUN/creat ratio 9 6 - 22 (calc) [facility] Sodium 137 135 - 146 mmol/L [facility] Potassium, pl 6.8(HH) 3.5 - 5.3 mmol/L [facility] Comment: Red blood cells were present in the sample upon receipt in the laboratory. The test(s) ordered were performed. The presence of red blood cells has been known to affect the following analytes: potassium, glucose, inorganic phosphorus, lactate dehydrogenase and iron. Verified by repeat analysis. Chloride 104 98 - 110 mmol/L [facility] CO2 28 20 - 32 mmol/L [facility] Calcium 9.8 8.6 - 10.3 mg/dL [facility] Blood 02/03/2022 11:3 3 AM STATE DIRECTOR 02/03/2022 11:35 AM STATE DIRECTOR Narrative [facility] - 02/04/2022 7:34 AM STATE DIRECTOR FASTING:NO FASTING: NO us Feliberto Munoz MD LAB BLOOD ORDERABLES Final Re sult [facility] [id number] [address] [phone] documented in this encounter Visit Diagnoses Diagnosis Hyperkalemia- Primary Hyperpotassemia Hydronephrosis, unspecified hydronephrosis type documented in this encounter Care Teams Video Arcade Manager Relationship Specialty Start Date End Date Hero Acevedo MD [facility] [address] Duncan SINGH [address] [place] [address] PCP - General Cardiovascular Disease 11/23/17 3 documented as of this encounter
--- OUTSIDE RECORDS SUMMARY | 2024-03-04 10:35 | XMS_ITS | Encounter Summary ---
Author Organization [facility] Address [address] [facility] [address] [place] [address] Phone Care Team Providers Care Table Machine Operator Name Role Phone Hero Acevedo MD Primary Care Provider [phone] Encounter Details Date Type Department Care Team (Late st Contact Info) Description 02/13/2022 PEREZ Care Coordination [facility] Care Coordination [address] [place] [address] Ladonna Ramirez, RN Social History Tobacco Use Types Packs/Day Years [...] on file Legal Sex Male 3:46 AM CAMPUS SUPERVISOR Gender Identity Not on file Sexual Orientation Not on file documented as of this encounter Progress Notes * Ladonna Ramirez RN - 02/16/2022 4:42 PM CST Additional TCM attempt but only able to LMOVM. US SUPERVISOR * Ladonna Ramirez RN - 02/13/2022 11:01 AM CST Attempted STAR f/u call to Jean-Pierre Sofia. Patient was inpatient at [facility] 02/04/22-02/12/22 due to eval due to elevated creatinine and c/o weakness, swelling of neck and feet and urinary retention. Left message on for Jean-Pierre to return call to at [phone]. Pt also alerted of unread My Chartmessages sent by his providers today and advised to call urology and PCP office to schedule f/u appts. US SUPERVISOR documented in this encounter Plan of Treatment Not on file documented as of this encounter Visit Diagnoses Not on filedocumented in this encounter Care Teams Table Machine Operator Relationship Specialty Start Date End Date Hero Acevedo MD [facility]0 [facility] [address] Duncan SINGH [address] [place] [address] PCP - General Cardiovascular Disease 11/23/17 3 documented as of this encounter
--- OUTSIDE RECORDS SUMMARY | 2024-03-04 10:35 | XMS_ITS | Encounter Summary ---
Author Organization [facility] Address [address] [facility] [address] [place] [address] Care Team Providers Care Irrigating Pump Operator Name Role Phone Hero Acevedo MD Primary Care Provider [phone] Encounter Details Date Type Department Care Team (Late st Contact Info) Description 01/20/[address] 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 He will have labs checked this week. SOMNOGRAPHY TECHNICIAN * Telephone Encounter - Vinita Clayton - 01/20/2022 3:09 PM CST LVM for the patient to return my call. SOMNOGRAPHY TECHNICIAN * Telephone Encounter - Feliberto Munoz MD - 01/20/2022 12:58 PM CST Potassium was normal on labs yesterday in ER. I see he is on the antibiotic Bactrim based on his medication list in the ER yesterday which is likely why he has hyperkalemia. Can you see how long he will be on that agent and would plan to repeat a BMP once he is no longer taking it. Also he can either go online or we can send him low-potassium diet info please SOMNOGRAPHY TECHNICIAN * Telephone Encounter - Vinita Clayton - 01/20/2022 11:14 AM CST This is a new patient that we have scheduled to see you in February. He was just in the ED for elevK. Did he need to be seen sooner than February? I can offer him a day in Nov with another provider but he wanted to see you. SOMNOGRAPHY TECHNICIAN documented in this encounter Plan of Treatment Not on file documented as of this encounter Procedures Procedure Name Priority Date/Time Associated Diagnosis Comments BASIC METABOLIC PANEL Routine 01/21/2022 12:12 PM POLYSOMNOGRAPHY TECHNICIAN Hyperkalemia documented in this encounter Results * (ABNORMAL) Basic metabolic panel (01/21/2022 12:12 PM POLYSOMNOGRAPHY TECHNICIAN) Glucose 62(L) 65 - 99 mg/dL [facility] Comment: ? Fasting reference interval BUN 31(H) 7 - 25 mg/dL [facility] Creatinine 2.67(H) 0.70 - 1.30 mg/dL [facility] [...] 146 mmol/L [facility] Potassium, pl 6.0(H) 3.5 - 5.3 mmol/L [facility] Chloride 108 98 - 110 mmol/L [facility] CO2 24 20 - 32 mmol/L [facility] Calcium 9.4 8.6 - 10.3 mg/dL [facility] Blood 01/21/2022 12:1 2 PM POLYSOMNOGRAPHY TECHNICIAN 01/21/2022 12:14 PM POLYSOMNOGRAPHY TECHNICIAN us Feliberto Munoz MD LAB BLOOD ORDERABLES Final Re sult [facility] [id number] [address] [id number] documented in this encounter Visit Diagnoses Diagnosis Hyperkalemia- Primary Hyperpotassemia documented in this encounter Care Teams Irrigating Pump Operator Relationship Specialty Start Date End Date Hero Acevedo MD [address] [place] [address] DR Duncan SINGH [address] [place] [address] PCP - General Cardiovascular Disease 11/23/17 3 documented as of this encounter
--- OUTSIDE RECORDS SUMMARY | 2024-03-04 10:35 | XMS_ITS | Encounter Summary ---
Author Organization [facility] Address [address] 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 He wants a call back. [phone] CODERS documented in this encounter Plan of Treatment Not on file documented as of this encounter Visit Diagnoses Not on filedocumented in this encounter Care Teams Territory Manager Relationship Specialty Start Date End Date Hero Acevedo MD [address] [facility] [address] Duncan SINGH [address] [place] [address] PCP - General Cardiovascular Disease 11/23/17 3 documented as of this encounter
--- OUTSIDE RECORDS SUMMARY | 2024-03-04 10:35 | XMS_ITS | Encounter Summary ---
Author Organization 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 That Dr. Acevedo needs to a an apt. To fill out FMLA paper work. I stated this apt can be a zoom apt.through my chart. I stated for pt. To please call the office to schedule the apt. NSED CHEMICAL SPRAY TECHNICIAN documented in this encounter Plan of Treatment Not on file documented as of this encounter Visit Diagnoses Not on filedocumented in this encounter Care Teams Independent Marketing Consultant Relationship Specialty Start Date End Date Hero Acevedo MD [address] [place] [address] DR Duncan SINGH [address] [place] [address] PCP - General Cardiovascular Disease 11/23/17 3 documented as of this encounter
--- OUTSIDE RECORDS SUMMARY | 2024-03-04 10:35 | XMS_ITS | Encounter Summary ---
Author Organization [facility] Address [address] [place] [address] Phone Care Team Providers Care Snout Puller Name Role Phone Hero Acevedo MD Primary Care Provider [phone] Encounter Details Date Type Department Care Team (Late st Contact Info) Description 01/28/2022 Orders Only [address] [place] [address] Hero Acevedo MD [address] [place] [address] Renal insufficiency (Primary Dx) Social History [...] on file Legal Sex Male 3:46 AM NANOTECHNOLOGY ENGINEERING TECHNICIAN Gender Identity Not on file Sexual Orientation Not on file documented as of this encounter Progress Notes * Autumn Andrade RMA - 01/28/2022 10:52 AM CST Chris SOLORIO ([phone]) called to have US renal complete w/ complete renal doppler order changed to US Renal doppler; this is done in vascular lab as opposed to the other order done in US. Corrected order placed; she will pull from [facility]. TECHNOLOGY ENGINEERING TECHNICIAN documented in this encounter Plan of Treatment Not on file documented as of this encounter Visit Diagnoses Diagnosis Renal insufficiency- Primary Unspecified disorder of kidney and ureter documented in this encounter Care Teams Snout Puller Relationship Specialty Start Date End Date Hero Acevedo MD [facility] [address] Duncan SINGH [address] [place] [address] PCP - General Cardiovascular Disease 11/23/17 3 documented as of this encounter
--- OUTSIDE RECORDS SUMMARY | 2024-03-04 10:36 | XMS_ITS | Encounter Summary ---
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 Fecal Occult Stool Sample was Negative. Information charted in patients chart. documented in this encounter Plan of Treatment Not on file documented as of this encounter Visit Diagnoses Diagnosis Blood in stool- Primary documented in this encounter Care Teams Crane Assembler Relationship Specialty Start Date End Date Hero Acevedo MD [facility]0 [facility] [address] Duncan SINGH [address] [place] [address] PCP - General Cardiovascular Disease 11/23/17 3 documented as of this encounter
--- OUTSIDE RECORDS SUMMARY | 2024-03-04 10:36 | XMS_ITS | Encounter Summary ---
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 Gender Identity Not on file Sexual Orientation Not on file documented as of this encounter Progress Notes * Carmen Blum CMA - 05/26/2021 3:57 PM CDT 2 Fit kits returned in mail documented in this encounter Plan of Treatment Not on file documented as of this encounter Procedures Procedure Name Priority Date/Time Associated Diagnosis Comments POCT OCCULT BLOOD STOOL, NOT FOR NEOPLASM SCREENING Routine 05/26/2021 4:01 PM CDT Blood in stool documented in this encounter Results * POCT occult blood stool (05/26/2021 4:01 PM CDT) Fecal occult blood, POC Negative Negative Comment:Fit kits x2 negatibe for blood i stool Developer Lot Number [id number] QC Control Line Acceptable Occult Blood Card Lot Number [id number] Stool 05/26/2021 4:01 PM CDT Hero Acevedo MD POINT OF CARE TEST ORDERABLE S Final Result documented in this encounter Visit Diagnoses Diagnosis Blood in stool- Primary documented in this encounter Care Teams Netbackup Engineer Relationship Specialty Start Date End Date Hero Acevedo MD [address] [place] [address] DR Song [address] [address] PCP - General Cardiovascular Disease 11/23/17 7 3 documented as of this encounter
--- OUTSIDE RECORDS SUMMARY | 2024-03-04 10:36 | XMS_ITS | Encounter Summary ---
Author Organization [facility] Address [address] [place] [address] Phone Care Team Providers Care Student Records Coordinator Name Role Phone Hero Acevedo MD Primary Care Provider [phone] Encounter Details Date Type Department Care Team (Late st Contact Info) Description 01/19/[address] [address] Hero Acevedo MD [address] [place] [address] Social History Tobacco Use Types Packs/Day [...] on file Legal Sex Male 3:46 AM SIGN PAINTER HELPER Gender Identity Not on file Sexual Orientation Not on file documented as of this encounter Miscellaneous Notes * Telephone Encounter - Vandana Waldrop, MA - 01/19/2022 4:47 PM SIGN PAINTER HELPER Per , patient's potassium level is critically elevated. Did contact patient and verbaized need for evaluation because of critical lab value. Not sure if the specimen may have been compromisedwhen collected, but the ER can recheck to see if the value is truly elevated. If so then it can be treated at that time. Pt verbalizes understanding for treatment and will proceed to [facility] PAINTER HELPER documented in this encounter Plan of Treatment Not on file documented as of this encounter Visit Diagnoses Not on filedocumented in this encounter Care Teams Student Records Coordinator Relationship Specialty Start Date End Date Hero Acevedo MD [address] [facility] [address] Duncan SINGH [address] [place] [address] PCP - General Cardiovascular Disease 11/23/17 3 documented as of this encounter
--- OUTSIDE RECORDS SUMMARY | 2024-03-04 10:36 | XMS_ITS | Encounter Summary ---
Author Organization [facility] Address [address] [facility] [address] [place] [address] Phone Care Team Providers Care Double Head Machine Operator Name Role Phone Hero Acevedo MD Primary Care Provider [phone] Reason for Visit * Reason Comments Skin Exam Pt stated he is here for treatment of the dryness on his hands.Pt stated sometimes they crack and itch. * Dermatology (Routine) - Closed Specialty Diagnoses / Procedures Referred By Margie norton Referred To Contact Dermatology Diagnoses Arthralgia, unspecified joint Shruti Haley PA Phone: tel: fax: [facility] Dermatology [address] [facility] [address] [facility] 5[address] [place] [address] [place] [address] Phone: tel: fax: Referral ID Status Reason Start Date Expiration Date V isits Requested Visits Authorized [id number] Closed Specialty Services Required 04/30/2021 05/30/2022 99 99 Encounter Details Date Type Department Care Team (Late st Contact Info) Description 08/05/2021 11:45 AM CDT Office Visit [facility] Dermatology [address] 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 male with no history of skin cancer who presents for a new patient visit for dry skin on hands. Jean-Pierre reports very dry skin - worst on the hands, that has been worsening over recent years. He has tried several moisturizers, and was recently provided with a topical steroid by PCP (clobetasol).He says that he used the clobetasol once, but it worsened inflammation all over his body , so he did not use it again- he still has the medicine at home. 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 Denies any other changing moles, rashes, non healing sores, or tender spots. Medications/Allergies/PMH: Past Medical History: Diagnosis Date ??? Anxiety ??? Arthritis 1977 ??? Asthma ??? Cancer (CMS/HCC) ([facility]) 2002 ??? Chronic fatigue ??? Constipation ??? Depression ??? OCD (obsessive compulsive disorder) ??? Sleep apnea 2002 ??? Thyroid disease 1999 ??? Tuberculosis 1973 ROS: Denies fever, chills, lymphadenopathy, rhinorrhea, cough, dyspnea VITALS: There were no vitals taken for this visit. PHYSICAL EXAM: GENERAL: Appears well. No acute distress. ORIENTATION: Alert MOOD/AFFECT: Normal affect. The patient's face, ears, eyes/eyelids, lips, neck, bilateral upper extremities, digits/nails were examined and normal, unless specified below: *On the hands: accentuated dermatoglyphics, lichenification on the dorsal hands, and dry scale throughout - very fine fissures at the fingertips *Elsewhere on the upper extremities, dry fine scale ASSESSMENT AND PLAN: #Xerosis cutis #Eczematous dermatitis -Discussed at length the role of the skin as a barrier, and the mechanisms of itch and inflammationin eczematous processes -Suggested attention be paid to possible irritants or triggers in his work / home environment (patient is a civil litigation attorney) -Encouraged the frequent use of thick, bland emollients such as vaseline to restore skin barrier function and moisture -Patient has topical steroid at home, and prefers not to have new prescription - will re-try clobetasol 0.05% cream (prescribed by PCP) daily to hands when very dry, itchy, scaly, and irritated -Provided dry skin handout with instructions on soak and smear method, avoiding harsh soaps and irritants, etc Follow-up: 3-4 months Giorgio Daley MD Dermatology PGY2 August 05, 2021 Cosigned by Sultana Victoria MD PhD at 08/11/2021 10:44 AM CDT Associated attestation - Sultana Victoria MD PhD - 08/11/2021 10:44 AM CDT I have seen and examined the patient. I agree with the findings and plan of care as discussed with the resident/fellow. documented in this encounter Plan of Treatment Not on file documented as of this encounter Visit Diagnoses Diagnosis Eczema, unspecified type- Primary Xerosis cutis Other specified disease of sebaceous glands documented in this encounter Orders Outpatient Referral Count Last Ordered Date Fir st Ordered Date AMB REFERRAL TO DERMATOLOGY 1 08/05/2021 documented in this encounter Care Teams Double Head Machine Operator Relationship Specialty Start Date End Date Hero Acevedo MD [address] [facility] [address] Duncan SINGH [address] [place] [address] PCP - General Cardiovascular Disease 11/23/17 3 documented as of this encounter
--- OUTSIDE RECORDS SUMMARY | 2024-03-04 10:36 | XMS_ITS | Encounter Summary ---
Author Organization [facility] Address [facility] [address] Phone Care Team Providers Care Insurance Sales Supervisor Name Role Phone Hero Acevedo MD Primary Care Provider [phone] Reason for Referral * Diagnostic Imaging (Routine) - Closed Specialty Diagnoses / Procedures Referred By Contac t Referred To Contact Diagnoses Arthralgia, unspecified joint Procedures XR Wrist Left 3 or More Views Shruti Haley PA Phone: tel: fax: [facility] Referral ID Status Reason Start Date Expiration Date Visits Re quested Visits Authorized [id number] Closed 04/30/2021 05/30/2022 1 1 E [employer]ION [employer] OFFICER * Diagnostic Imaging (Routine) - Closed Specialty Diagnoses / Procedures Referred By Contissa norton Referred To Contact Diagnoses Arthralgia, unspecified joint Procedures XR Wrist Right 3 or More Views Shruti Haley PA Phone: tel: fax: [facility] Referral ID Status Reason Start Date Expiration Date Visits Re quested Visits Authorized [id number] Closed 04/30/202105/30/2022 1 1 E [employer]VENTION POLICE OFFICER * Consultation (Routine) - Closed Specialty Diagnoses / Procedures Referred By Margie norton Referred To Contact Rheumatology Diagnoses Arthralgia, unspecified joint Shruti Haley PA Phone: tel: fax: [facility] (All Locations) Referral ID Status Reason Start Date Expiration Date V isits Requested Visits Authorized [id number] Closed Specialty Services Required 04/30/2021 3 3 Question Answer Please select the performing region: [facility] (All Locations) [[id number]] Service Line General Rheumatology # of visits: 1 E [employer]ION [employer]ICE OFFICER * Dermatology (Routine) - Closed Specialty Diagnoses / Procedures Referred By Margie norton Referred To Contact Dermatology Diagnoses Arthralgia, unspecified joint Shruti Haley PA Phone: tel: fax: [facility] Dermatology [address] [place] [address] [place] [address] Phone: tel: fax: Referral ID Status Reason Start Date Expiration Date V isits Requested Visits Authorized [id number] Closed Specialty Services Required 04/30/2021 05/30/2022 99 99 Question Answer Please select the performing region: [facility] (All Locations) [167] Please select the performing department: [facility] [[id number]] # of visits: 1 E [employer]ION [employer]ICE OFFICER Reason for Visit * Reason Comments Joint Pain Encounter Details Date Type Department Care Team (Late st Contact Info) Description 04/30/2021 3:15 PM CRIME [employer]ION [employer] OFFICER Office Visit [address] [place] [id number] Shruti Haley PA [address] [place] [address] Arthralgia, unspecified joint (Primary Dx); Xerosis of skin Social History Tobacco Use Types Packs/Day Years [...] on file Legal Sex Male 3:46 AM CRIME [employer]ION [employer]ICE OFFICER Gender Identity Not on file Sexual Orientation Not on file documented as of this encounter Last Filed Vital Signs Vital Sign Reading Time Taken Comments Blood Pressure 140/82 04/30/2021 3:22 PM CRIME [employer]ICE OFFICER Pulse 64 04/30/2021 3:22 PM CRIME [employer] OFFICER Temperature - - Respiratory Rate - - Oxygen Saturation 97% 04/30/2021 3:22 PM CRIME [employer]ION [employer]ICE OFFICER Inhaled Oxygen Concentration - - Weight 89.8 kg (197 lb 14.4 oz) 04/30/2021 3:22 PM CRIME [employer]ICE OFFICER Height 185.4 cm (6' 1 ) 04/30/2021 3:22 PM CRIME [employer]ICE OFFICER Body Mass Index 26.11 04/30/2021 3:22 PM CRIME [employer]ION [employer]ICE OFFICER documented in this encounter Ordered Prescriptions Prescription Sig Dispense Quantity Refills Last Filled Start Date End Date clobetasoL (TEMOVATE) 0.05 % creamIndications:X erosis of skin Apply topically 2 (two) times a day 30 g 1 04/30/2021 2 meloxicam (MOBIC) 7.5 mg tabletIndications: Arthralgia, unspecified joint Take 1 tablet (7.5 mg total) by mouth daily 30 tablet 1 04/30/2021 2 methylPREDNISolone (MEDROL DOSEPACK) 4 mg DosepackIndication s:Arthralgia, unspecified joint Take as directed on package. 21 tablet 04/30/2021 2 documented in this encounter Progress Notes * Shruti Hlaey PA - 04/30/2021 3:15 PM CST Subjective/Objective Jean-Pierre Sofia is a 55 y.o. male Chief Complaint Chief Complaint Patient presents with ??? Joint Pain History of Present Illness Jean-Pierre Sofia presents for evaluation of pain in both wrist x 1.5 months. He notes the pain started in his left wrist first and then moved to his right wrist and right elbow. Denies any trauma.Things are worsening. He has chronic inflammation and numbness in hands for years. His hands are also very dry. Denies any trauma. No h.o RA in the family that he can recall but his mom has arthritis. Pain was worse recently so he came in for an exam. Denies STD concerns or penile rash/discharge. He did have some urinary urgency a few days ago. Patient Active Problem List Diagnosis ??? Moderate persistent asthma without complication ??? Benign colon polyp ??? Depression ??? Vitamin D deficiency ??? Personal history of colonic polyps ??? Arthralgia ??? Xerosis of skin Past Surgical History: Procedure Laterality Date ??? COLONOSCOPY 09/30/2017 Benign colon polyp ??? FLEXIBLE SIGMOIDOSCOPY 01/12/2019 NAD ??? KNEE SURGERY History reviewed. No pertinent family history. Social History Socioeconomic History ??? Marital status: Single Spouse name: Not on file ??? Number of children: Not on file ??? Years of education: Not on file ??? Highest education level: Not on file Occupational History ??? Not on file Tobacco Use ??? Smoking status: Never Smoker ??? Smokeless tobacco: Never Used Substance and Sexual Activity ??? Alcohol use: Not Currently ??? Drug use: Defer ??? Sexual activity: Not on file Other Topics Concern ??? Not on file Social History Narrative ??? Not on file Social Determinants of Health Financial Resource Strain: Not on file Food Insecurity: Not on file Transportation Needs: Not on file Physical Activity: Not on file Stress: Not on file Social Connections: Not on file Intimate Partner Violence: Not on file Housing Stability: Not on file Current Outpatient Medications: ??? albuterol HFA (ProAir HFA) 90 mcg/actuation inhaler, Inhale 2 puffs every 4 (four) hours as needed for wheezing or shortness of breath, Disp: 3 Inhaler, Rfl: 3 ??? caprylic/capric triglyceride (CAPRYLIC-CAPRIC TRIGLY, BULK, MISC), , Disp: , Rfl: ??? cholecalciferol (VITAMIN D-3) 25 mcg (1,000 unit) tablet, Take 4,000 Units by mouth daily, Disp: , Rfl: ??? clobetasoL (TEMOVATE) 0.05 % cream, Apply topically 2 (two) times a day, Disp: 30 g, Rfl: 1 ??? fluticasone propion-salmeteroL (Advair Diskus) 250-50 mcg/dose diskus inhaler, Inhale 1 puff daily Rinse mouth with water after use to reduce aftertaste and incidence of candidiasis. Do not swallow., Disp: 1 each, Rfl: 3 ??? lactobacillus comb no.10 20 billion cell capsule, Take 1 capsule by mouth, Disp: , Rfl: ??? meloxicam (MOBIC) 7.5 mg tablet, Take 1 tablet (7.5 mg total) by mouth daily, Disp: 30 tablet, Rfl: 1 ??? methylPREDNISolone (MEDROL DOSEPACK) 4 mg Dosepack, Take as directed on package., Disp: 21 tablet, Rfl: 0 ??? PARoxetine (PAXIL) 30 mg tablet, Take 1 tablet (30 mg total) by mouth every morning., Disp: 30 tablet, Rfl: 3 ??? polycarbophil (FIBERCON) 625 mg tablet, Take 625 mg by mouth daily, Disp: , Rfl: ??? turmeric root extract 500 mg capsule, Take 1 capsule by mouth every other day, Disp: , Rfl: ??? UNABLE TO FIND, Administer 1 each into affected nostril(s) 2 (two) times a week Coffee enema, Disp: , Rfl: ??? venlafaxine XR (EFFEXOR-XR) 37.5 mg 24 hr capsule, Take 1 capsule (37.5 mg total) by mouth daily., Disp: 30 capsule, Rfl: 3 Allergies Allergen Reactions ??? Glutathione (Bulk) Unknown ??? Prozac [Fluoxetine] Unknown ??? Tetracyclic Antidepressants Unknown Review of Systems Genitourinary: Positive for frequency. Negative for difficulty urinating, hematuria, penile discharge, penile pain, penile swelling, scrotal swelling, testicular pain and urgency. Musculoskeletal: Positive for arthralgias. Skin: Positive for rash (dry hands). All other systems reviewed and are negative. BP 140/82 Pulse 64 Ht 185.4 cm (6' 1 ) Wt 89.8 kg (197 lb 14.4 oz) SpO2 97% BMI 26.11 kg/m?? Physical Exam Vitals reviewed. Constitutional: Appearance: He is not ill-appearing. Comments: Overweight HENT: Head: Normocephalic and atraumatic. Right Ear: External ear normal. Left Ear: External ear normal. Nose: Comments: Not examined to limit covid exposure Mouth/Throat: Comments: Not examined to limit covid exposure Eyes: Extraocular Movements: Extraocular movements intact. Pupils: Pupils are equal, round, and reactive to light. Neck: Comments: Submandibular LAD + Cardiovascular: Rate and Rhythm: Normal rate and regular rhythm. Pulses: Normal pulses. Heart sounds: Normal heart sounds. No murmur heard. No friction rub. No gallop. Pulmonary: Effort: Pulmonary effort is normal. No respiratory distress. Breath sounds: Normal breath sounds. No stridor. No wheezing, rhonchi or rales. Abdominal: General: Bowel sounds are normal. There is no distension. Palpations: Abdomen is soft. Tenderness: There is no abdominal tenderness. There is no guarding. Musculoskeletal: Right upper arm: Normal. Left upper arm: Normal. Right elbow: Normal. No swelling or deformity. Normal range of motion. No tenderness. Left elbow: Normal. Right wrist: Swelling (trace) present. No bony tenderness, snuff box tenderness or crepitus. Normalrange of motion. Normal pulse. Left wrist: Swelling (trace) present. No bony tenderness, snuff box tenderness or crepitus. Normal range of motion. Normal pulse. Cervical back: Normal range of motion and neck supple. No rigidity. Right lower leg: No edema. Left lower leg: No edema. Comments: Negative Tinel's at wrist and elbow joints Lymphadenopathy: Cervical: No cervical adenopathy. Skin: General: Skin is warm and dry. Findings: Rash (b/l hands: very xerotic ashy skin tight skin with fish scale pattern. ) present. Nolesion. Neurological: General: No focal deficit present. Mental Status: He is alert and oriented to person, place, and time. Mental status is at baseline. Cranial Nerves: Cranial nerves are intact. Sensory: Sensation is intact. Motor: Motor function is intact. Coordination: Coordination is intact. Gait: Gait normal. Psychiatric: Mood and Affect: Mood normal. Assessment/Plan Diagnoses and all orders for this visit: Arthralgia, unspecified joint (Primary) Assessment & Plan: Has migratory arthralgias Will get xrays of wrist joints today Discussed conservative measures and trial with low dose steroids, biofreeze, rest and brace. Denies any concerns for STD and defers STD testing Will run rheum panel but still feel he needs rheum consult, given years of inflammation and lack ofa diagnosis (scleroderma, myositis, dermatomyositis, etc) or follow up Orders: - CBC with auto differential; Future - Comprehensive metabolic panel; Future - Rheumatoid factor; Future - Cyclic citrul peptide antibody, IgG; Future - Erythrocyte sedimentation rate; Future - Urinalysis reflex to microscopic and culture Urine, clean voided; Future - CRP (acute phase); Future - THERESE qualitative with reflex to THERESE Quantitative; Future - methylPREDNISolone (MEDROL DOSEPACK) 4 mg Dosepack; Take as directed on package. - meloxicam (MOBIC) 7.5 mg tablet; Take 1 tablet (7.5 mg total) by mouth daily - Ambulatory referral to Dermatology; Future - Ambulatory referral to Rheumatology; Future - XR Wrist Right 3 or More Views; Future - XR Wrist Left 3 or More Views; Future Xerosis of skin Assessment & Plan: Suspect he has ichthyosis or severe eczema Would also like him to be checked out by rheum (r/o scleroderma) Trial with topical steroids and liberalize emollient use Referred to derm Orders: - clobetasoL (TEMOVATE) 0.05 % cream; Apply topically 2 (two) times a day RTC PRN Shruti Haley PA-C Cosigned by Hero Acevedo MD at 04/30/2021 4:39 PM CRIME [employer]ION POLICE OFFICER E PREVENTION POLICE OFFICER E PREVENTION POLICE OFFICER documented in this encounter Miscellaneous Notes * Assessment & Plan Note - Shruti Haley PA - 04/30/2021 4:10 PM CSTAssociated Problem(s): Arthralgia Has migratory arthralgias Will get xrays of wrist joints today Discussed conservative measures and trial with low dose steroids, biofreeze, rest and brace. Denies any concerns for STD and defers STD testing Will run rheum panel but still feel he needs rheum consult, given years of inflammation and lack ofa diagnosis (scleroderma, myositis, dermatomyositis, etc) or follow up E PREVENTION POLICE OFFICER E PREVENTION POLICE OFFICER E PREVENTION POLICE OFFICER * Assessment & Plan Note - Shruti Haley PA - 04/30/2021 4:09 PM CSTAssociated Problem(s): Xerosis of skin Suspect he has ichthyosis or severe eczema Would also like him to be checked out by rheum (r/o scleroderma) Trial with topical steroids and liberalize emollient use Referred to derm E PREVENTION POLICE OFFICER E PREVENTION POLICE OFFICER E PREVENTION POLICE OFFICER * Addendum Note - Becka Nieto CLT - 04/30/2021 3:15 PM CSTAddended by: BECKA NIETO on: 04/30/2021 04:28 PM Modules accepted: Orders E [employer]ION [employer]ICE OFFICER * Addendum Note - Amy Morales - 04/30/2021 3:15 PM CSTAddended by: AMY MORALES on: 05/02/2021 12:17 PM Modules accepted: Orders E [employer]ION [employer] OFFICER documented in this encounter Plan of Treatment Scheduled Referrals Name Type Priority Associated Diagnoses Orde r Schedule Ambulatory referral to Dermatology Outpatient Referral Routine Arthralgia, unspecified joint Expected: 05/14/2021 (Approximate), Expires: 04/30/2022 Ambulatory referral to Rheumatology Outpatient Referral Routine Arthralgia, unspecified joint Expected: 05/14/2021 (Approximate), Expires: 04/30/2022 documented as of this encounter Results * Urinalysis reflex to microscopic and culture Urine, clean voided (05/02/2021 12:17 PM CRIME [employer]ION [employer]ICE OFFICER) Color, ur Straw Yellow [facility] Clarity, ur Clear Clear [facility] Specific gravity, ur 1.004 1.003 - 1.030 [facility] pH, urine 8.0 [facility] Protein, ur ql Negative Negative [facility] Glucose, ur ql Negative Negative [facility] Ketones, ur Negative Negative [facility] Bilirubin, ur Negative Negative [facility] Blood, ur Negative Negative [facility] Urobilinogen, ur <2.0 <2.0 mg/dL [facility] Nitrite, ur Negative Negative [facility] Leukocyte esterase, ur Negative Negative [facility] UA reflex comment Reflex conditions for microscopic UA and culture not met. [facility] Urine, clean voided 05/02/2021 12:17 PM CRIME [employer]ION POLICE OFFICER 05/02/2021 5:43 PM CRIME [employer]ION POLICE OFFICER Narrative [facility] - 05/02/2021 6:23 PM CRIME [employer]ION POLICE OFFICER ?? Urine pH is affected by diet, medications, systemic acid-base disturbances, and renal tubular function. ??pH may affect urinary stone formation. ??For example, urine pH below 6.0 may help reduce the tendency for calcium phosphate stones and pH greater than 6.0 may reduce the tendency for uric acid stone formation. Source: [employer]. Last revised 03-25-2017 us Sh[facility]uti [facility] MICROBIOLOGY - GENERAL ORDERABLES Final Result [facility] [id number] Department [place] [address] * XR Wrist Left 3 or More Views (04/30/2021 4:33 PM CRIME [employer]ION POLICE OFFICER) Anatomical Region Laterality Modality Upper Extremities, Wrist Left Compute d Radiography 04/30/2021 4:38 PM CRIME [employer]ION POLICE OFFICER Impressions 04/30/2021 4:38 PM CRIME [employer]ION POLICE OFFICER 1. Severe bilateral thumb basal joint osteoarthritis. Electronically signed by: Dorian Lloyd M.D. Narrative 04/30/2021 4:38 PM CRIME [employer]ION POLICE OFFICER EXAMINATION: XR WRIST RIGHT 3 OR MORE VIEWS, XR WRIST LEFT 3 OR MORE VIEWS HISTORY: Bilateral wrist pain FINDINGS: 3 view examinations of each wrist are read without comparison. There is severe bilateral thumb basal joint osteoarthritis. There is dorsal soft tissue swelling in both wrists. The other joint spaces are normal. There is no fracture or dislocation. Procedure Note Dorian Lloyd MD - 04/30/2021 EXAMINATION: XR WRIST RIGHT 3 OR MORE VIEWS, XR WRIST LEFT 3 OR MORE VIEWS HISTORY: Bilateral wrist pain FINDINGS: 3 view examinations of each wrist are read without comparison. There is severe bilateral thumb basal joint osteoarthritis. There is dorsal soft tissue swelling in both wrists. The other joint spaces are normal. There is no fracture or dislocation. IMPRESSION: 1. Severe bilateral thumb basal joint osteoarthritis. Electronically signed by: Dorian Lloyd M.D. Shruti [facility] IMBarb XR PROCEDURES Final Result * XR Wrist Right 3 or More Views (04/30/2021 4:33 PM CRIME [employer]ICE OFFICER) Anatomical Region Laterality Modality Upper Extremities, Wrist Right Compute d Radiography 04/30/2021 4:38 PM CRIME [employer]ION POLICE OFFICER Impressions 04/30/2021 4:38 PM CRIME [employer]ION POLICE OFFICER 1. Severe bilateral thumb basal joint osteoarthritis. Electronically signed by: Dorian Lloyd M.D. Narrative 04/30/2021 4:38 PM CRIME [employer]ION POLICE OFFICER EXAMINATION: XR WRIST RIGHT 3 OR MORE VIEWS, XR WRIST LEFT 3 OR MORE VIEWS HISTORY: Bilateral wrist pain FINDINGS: 3 view examinations of each wrist are read without comparison. There is severe bilateral thumb basal joint osteoarthritis. There is dorsal soft tissue swelling in both wrists. The other joint spaces are normal. There is no fracture or dislocation. Procedure Note Dorian Lloyd MD - 04/30/2021 EXAMINATION: XR WRIST RIGHT 3 OR MORE VIEWS, XR WRIST LEFT 3 OR MORE VIEWS HISTORY: Bilateral wrist pain FINDINGS: 3 view examinations of each wrist are read without comparison. There is severe bilateral thumb basal joint osteoarthritis. There is dorsal soft tissue swelling in both wrists. The other joint spaces are normal. There is no fracture or dislocation. IMPRESSION: 1. Severe bilateral thumb basal joint osteoarthritis. Electronically signed by: Dorian Lloyd M.D. Shruti [facility] IMG XR PROCEDURES Final Result * THERESE qualitative with reflex to THERESE Quantitative (04/30/2021 4:30 PM CRIME [employer]ICE OFFICER) THERESE Negative [facility] Comment: Interpretive Data Normal range for THERESE Qualitative Antibody = Negative. 1. THERESE is performed using indirect immunofluorescence against HEp-2 cells 2. THERESE titers are performed on all positive qualitative results. 3. A significantly positive THERESE result is defined as a positive nuclear fluorescence at a titer of 1:80 or greater. 4. 15% of normal people above age 65 have significantly positive THERESE results. ??5% or less of normal people age 65 or under have significantly positive THERESE results. Current interpretive data was last revised on 2019. Blood 04/30/2021 4:30 PM CR[employer]ICE OFFICER 04/30/2021 6:41 PM CRIME [employer]ION POLICE OFFICER Shruti [facility] BLOOD ORDERABL ES Final Result [facility] Department [place] [address] * CRP (acute phase) (04/30/2021 4:30 PM CRIME [employer]ION POLICE OFFICER) CRP 4.2 <=10.0 mg/L [facility]ARCIA Blood 04/30/2021 4:30 PM CRIME [employer]ION POLICE OFFICER 04/30/2021 6:41 PM CRIME [employer]ION POLICE OFFICER Shruti [facility] BLOOD ORDERABL ES Final Result Performing Organization Address [facility] Co de Phone Number [facility] [place] [address] * (ABNORMAL) Erythrocyte sedimentation rate (04/30/2021 4:30 PM CRIME [employer]ION POLICE OFFICER) Pathologist [facility] Erythrocyte sedimentation rate 29(H) 1 - 20 mm/hr [facility] Blood 04/30/2021 4:30 PM CRIME [employer]ION POLICE OFFICER 04/30/2021 6:41 PM CRIME [employer]ION POLICE OFFICER Shrutiolga Haley NM LAB BLOOD ORDERABL ES Final Result Performing Organization Address [facility] de Phone Number [facility] [place] [address] * (ABNORMAL) Cyclic citrul peptide antibody, IgG (04/30/2021 4:30 PM CRIME [employer]ION POLICE OFFICER) [facility] CCP Ab >300.0(H) <=2.9 units/mL [facility] Comment: Interpretive data Negative: <3 units/mL Positive: > or equal to 3 units/mL Current interpretive data was last revised on 2016. Blood 04/30/2021 4:30 PM CRIME [employer]ION [employer]ICE OFFICER 04/30/2021 6:41 PM CRIME [employer]ION POLICE OFFICER Shruti Dougie Haley NM LAB BLOOD ORDERABL ES Final Result Performing Organization Address [facility] [place] [address] * Rheumatoid factor (04/30/2021 4:30 PM CRIME [employer]ION POLICE OFFICER) Pathologist [facility] Rheumatoid factor, quant 11.0 0.1 - 15.0 IUnits/mL [facility] Blood 04/30/2021 4:30 PM CRIME [employer]ION POLICE OFFICER 04/30/2021 6:41 PM CRIME [employer]ION POLICE OFFICER us Shruti [facility] BLOOD ORDERABL ES Final Result [facility] Department [place] [address] * (ABNORMAL) Comprehensive metabolic panel (04/30/2021 4:30 PM CRIME [employer]ION POLICE OFFICER) Sodium 140 135 - 145 mmol/L [facility] Potassium, pl 4.6 3.3 - 4.9 mmol/L [facility] Chloride 104 97 - 110 mmol/L [facility] CO2 30 22 - 32 mmol/L [facility] Anion gap 6 2 - 15 mmol/L [facility] BUN 26(H) 8 - 25 mg/dL [facility] Creatinine 1.63(H) 0.80 - 1.30 mg/dL [facility] Glucose 65(L) 70 - 199 mg/dL [facility] Comment: Interpretive Data Fasting glucose >/= [...] interpretive data was last revised 2017. Calcium 10.9(H) 8.5 - 10.3 mg/dL [facility] Bilirubin, total 0.3 0.1 - 1.2 mg/dL [facility] Protein, pl 7.7 6.5 - 8.5 g/dL [facility] Albumin 4.2 3.5 - 5.0 g/dL [facility] Alk phos 92 40 - 130 Units/L [facility] ALT 23 7 - 55 Units/L [facility] AST 22 10 - 50 Units/L [facility] Blood 04/30/2021 4:30 PM CRIME [employer]ICE OFFICER 04/30/2021 6:41 PM CRIME [employer]ION POLICE OFFICER Shruti [facility] LAB BLOOD ORDERABL ES Final Result Performing Organization Address [facility]/ZIP Co de Phone Number [facility] Department [place] [address] * (ABNORMAL) CBC with auto differential (04/30/2021 4:30 PM CRIME [employer]ION POLICE OFFICER) [facility] WBC 5.4 3.8 - 9.9 K/cumm [facility] Hgb 12.4(L) 13.0 - 17.5 g/dL [facility] Hct 37.6(L) 38.9 - 50.3 % [facility] Plt 196 150 - 400 K/cumm [facility] MPV 11.2 9.1 - 12.3 fL [facility] RBC 4.10(L) 4.30 - 5.80 M/cumm [facility] MCV 91.7 81.3 - 96.4 fL [facility] MCH 30.2 27.1 - 33.3 pg [facility] MCHC 33.0 32.3 - 35.7 g/dL [facility] RDW CV 13.1 11.1 - 14.9 % [facility] RDW SD 43.8 35.7 - 48.1 fL [facility] NRBC abs 0.00 0.00 - 0.01 K/cumm [facility] Blood 04/30/2021 4:3 0 PM CRIME [employer]ICE OFFICER 04/30/2021 6:41 PM CRIME [employer]ION [employer]ICE OFFICER Shruti [facility] BLOOD ORDERABL ES Final Result [facility] [place] [address] documented in this encounter Visit Diagnoses Diagnosis Arthralgia, unspecified joint- Primary Xerosis of skin Arthralgia, unspecified joint Arthralgia, unspecified joint documented in this encounter Historical Medications * This list may reflect changes made after this encounter. Medication Sig Dispense Quantity Refills Last Filled Start D ate End Date caprylic/capric triglyceride (CAPRYLIC-CAPRIC TRIGLY, BULK, MISC) 02/04 added in this encounter Care Teams Insurance Sales Supervisor Relationship Specialty Start Date End Date Hero Acevedo MD [address] [facility] [address] Duncan SINGH [address] [place] [id number] PCP - General Cardiovascular Disease 11/23/17 3 documented as of this encounter
--- OUTSIDE RECORDS SUMMARY | 2024-03-04 10:36 | XMS_ITS | Encounter Summary ---
Author Organization [facility] Address [address] [place] [address] Phone Care Team Providers Care Track Laminating Machine Tender Name Role Phone Hero Acevedo MD Primary Care Provider [phone] Reason for Visit * Consultation (Routine) - Closed Specialty Diagnoses / Procedures Referred By Contac t Referred To Contact Rheumatology Diagnoses Arthralgia, unspecified joint Shruti Haley PA Phone: tel: fax: [facility] (All Locations) Referral ID Status Reason Start Date Expiration Date V isits Requested Visits Authorized [id number] Closed Specialty Services Required 04/30/2021 3 3 Encounter Details Date Type Department Care Team (Late st Contact Info) Description 09/24/2021 1:20 PM CDT Office Visit [facility] Rheumatology [address] [facility] 5th [place] [address] [place] [address] Leana Jack MD [address] [place] [address] Pain of both wrist joints (Primary Dx); Raised antibody titer Social History Tobacco Use [...] on file Legal Sex Male 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 Gender Identity Not on file Sexual Orientation Not on file documented as of this encounter Last Filed Vital Signs Vital Sign Reading Time Taken Comments Blood Pressure 140/89 09/24/2021 1:14 PM CDT Pulse 59 09/24/2021 1:14 PM CDT Temperature 36.6 ??C (97.9 ??F) 09/24/2021 1:14 PM CD T Respiratory Rate - - Oxygen Saturation - - Inhaled Oxygen Concentration - - Weight 89.3 kg (196 lb 12.8 oz) 09/24/2021 1:14 PM CDT Height 185.4 cm (6' 1 ) 09/24/2021 1:14 PM CDT Body Mass Index 25.96 09/24/2021 1:14 PM CDT documented in this encounter Progress Notes * Leana Jack MD - 09/24/2021 1:20 PM CDT [facility] Division of Rheumatology Established patient visit SUBJECTIVE: CC: Follow-up of joint pain History of Present Illness: A pleasant 55 y.o. male with PMHx significant for anxiety seen by me for the 1st time in May 2021here for follow-up today. Since then he has been doing well. He had 1 episode of mild left wrist pain which happened a few months ago, lasted between 3-7 days, and self-resolved. He has had no other joint pain, [...] Colitis PMHx: Past Medical History: Diagnosis Date ??? Anxiety ??? Arthritis 1977 ??? Asthma ??? Cancer (CMS/HCC) (HCC) 2002 ??? Chronic fatigue ??? Constipation ??? Depression ??? OCD (obsessive compulsive disorder) ??? Sleep apnea 2002 ??? Thyroid disease 1999 ??? Tuberculosis 1974 PSHx: Past Surgical History: Procedure Laterality Date ??? COLONOSCOPY 09/30/2017 Benign colon polyp ??? FLEXIBLE SIGMOIDOSCOPY 01/12/2019 NAD ??? KNEE SURGERY FamHx: Family History Problem Relation Age of Onset ??? Alcohol abuse Father ??? Cancer Father ??? Mental illness Father ??? Alcohol abuse Sister ??? Cancer Sister ??? Diabetes Sister ??? Drug abuse Sister ??? Hypertension Sister ??? Mental illness Sister ??? Vision loss Sister ??? Alzheimer's disease Mother ??? Arthritis Mother ??? Cancer Mother ??? Hypertension Mother ??? Mental illness Mother ??? 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 Social History Tobacco Use ??? Smoking status: Never Smoker ??? Smokeless tobacco: Never Used Substance Use Topics ??? Alcohol use: Not Currently ??? Drug use: Never MEDICATIONS: Current Outpatient Medications Medication Sig Dispense Refill ??? albuterol HFA (ProAir HFA) 90 mcg/actuation inhaler Inhale 2 puffs every 4 (four) hours as needed for wheezing or shortness of breath 3 Inhaler 3 ??? caprylic/capric triglyceride (CAPRYLIC-CAPRIC TRIGLY, BULK, MISC) ??? cholecalciferol (VITAMIN D-3) 25 mcg (1,000 unit) tablet Take 4,000 Units by mouth daily ??? clobetasoL (TEMOVATE) 0.05 % cream Apply topically 2 (two) times a day 30 g 1 ??? lactobacillus comb no.10 20 billion cell capsule Take 1 capsule by mouth ??? PARoxetine (PAXIL) 30 mg tablet Take 1 tablet (30 mg total) by mouth every morning. 30 tablet 3 ??? polycarbophil (FIBERCON) 625 mg tablet Take 625 mg by mouth daily ??? venlafaxine XR (EFFEXOR-XR) 37.5 mg 24 hr capsule Take 1 capsule (37.5 mg total) by mouth daily. 30 capsule 3 ??? Wixela Inhub 250-50 mcg/dose diskus inhaler INHALE 1 PUFF BY MOUTH DAILY. RINSE MOUTH WITH WATER AFTER USE TO REDUCE AFTERTASTE AND INCIDENCE OF CANDIDIASIS. DO NOT SWALLOW 60 each 2 ALLERGIES: Allergies Allergen Reactions ??? Tetracycline Swelling ??? Glutathione (Bulk) Unknown ??? Prozac [Fluoxetine] Unknown OBJECTIVE: Physical Examination: Vitals: BP 140/89 Pulse 59 Temp 36.6 ??C (97.9 ??F) Ht 185.4 cm (6' 1 ) Wt 89.3 kg (196 lb 12.8 oz) BMI 25.96 kg/m?? General-pleasant, well-appearing in no distress HEENT unremarkable Cardiovascular exam S1-S2 Lungs clear to auscultation bilaterally Skin no rash, dry hyperpigmented skin on the dorsal aspect of both hands Extremities no edema Musculoskeletal exam-no synovitis in the joints, full range of motion of all joints Investigations: Labs: Lab Results Component Value Date WBC 4.7 05/30/2021 HGB 12.1 (L) 05/30/2021 HCT 36.2 (L) 05/30/2021 MCV 89.2 05/30/2021 LABPLAT 201 05/30/2021 Lab Results Component Value Date AST 22 04/30/2021 ALT 23 04/30/2021 CREATININE 1.66 (H) 05/30/2021 Lab Results Component Value Date SEDRATE 29 [...] VIEWS 6. XR FOREARM RIGHT 1 VIEW ?? HISTORY: Rheumatoid arthritis ?? FINDINGS: 7 radiographs of the left forearm, wrist, and hand and 7 radiographs of the right forearm, wrist, and hand are submitted for interpretation with comparison made to wrist radiographs 04/30/2021. ?? No acute fracture or dislocation is identified. [...] of the dorsal aspect of both wrists. ?? IMPRESSION: 1. Multifocal osteoarthritis of both hands [...] with this plan. He will return in 6 months, and call to be seen sooner in case of new or worsening symptoms. documented in this encounter Plan of Treatment Not on file documented as of this encounter Visit Diagnoses Diagnosis Pain of both wrist joints- Primary Raised antibody titer Other and unspecified nonspecific immunological findings documented in this encounter Historical Medications * This list may reflect changes made after this encounter. ostomy supply (ENEMA BAG MISC) Coffee Enema 2021 added in this encounter Care Teams Track Laminating Machine Tender Relationship Specialty Start Date End Date Hero Acevedo MD [address] [facility] [address] Duncan SINGH [address] [place] [address] PCP - General Cardiovascular Disease 11/23/17 3 documented as of this encounter
--- OUTSIDE RECORDS SUMMARY | 2024-03-04 10:36 | XMS_ITS | Encounter Summary ---
Author Organization [facility] Address [address] [place] [phone] Phone Care Team Providers Care Associate Artistic Director Name Role Phone Hero Acevedo MD Primary Care Provider [phone] Reason for Visit * Reason Onset Date Comments Medication Problem 12/02/2021 Encounter Details Date Type Department Care Team (Late st Contact Info) Description 12/02/[address] [address] Hero Acevedo MD [address] [place] [address] Medication Problem Social History Tobacco Use Types Packs/Day Years [...] on file 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 When I called him back no answer. documented in this encounter Plan of Treatment Not on file documented as of this encounter Visit Diagnoses Not on filedocumented in this encounter Care Teams Associate Artistic Director Relationship Specialty Start Date End Date Hero Acevedo MD [facility] [facility] [address] Duncan SINGH [address] [place] [id number] PCP - General Cardiovascular Disease 11/23/17 3 documented as of this encounter
--- OUTSIDE RECORDS SUMMARY | 2024-03-04 10:36 | XMS_ITS | Encounter Summary ---
Author Organization [facility] Address [address] [place] [phone] Phone Care Team Providers Care Business Mgr Name Role Phone Hero Acevedo MD Primary Care Provider [phone] Reason for Referral * Cardiology (Routine) - Closed Specialty Diagnoses / Procedures Referred By Contac t Referred To Contact Diagnoses Screening cholesterol level Procedures ECG 12 lead Hero Acevedo MD [address] [place] [address] [address] SINGH [address] [place] [address] Phone: tel: fax: Referral ID Status Reason Start Date Expiration Date Visits Re quested Visits Authorized [id number] Closed 11/25/2021 12/25/2022 1 1 Encounter Details Date Type Department Care Team (Late st Contact Info) Description 11/25/2021 8:45 AM CDT Office Visit [address] [address] [facility] [address] [place] [address] Screening cholesterol level (Primary Dx); Flu vaccine need; Mild episode of recurrent major depressive disorder (HCC); Obsessive-compulsive disorder, unspecified type; Mild intermittent asthma without complication; Rheumatoid aortitis; Colon polyp; Vitamin D deficiency; Screening for blood or protein in urine; Prostate cancer screening Social History Tobacco Use [...] on file 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 Gender Identity Not on file Sexual Orientation Not on file documented as of this encounter Last Filed Vital Signs Vital Sign Reading Time Taken Comments Blood Pressure 138/84 11/25/2021 8:56 AM CDT Pulse 67 11/25/2021 8:56 AM CDT Temperature - - Respiratory Rate - - Oxygen Saturation 96% 11/25/2021 8:56 AM CDT Inhaled Oxygen Concentration - - Weight 88.9 kg (195 lb 14.4 oz) 11/25/2021 8:56 AM CDT Height 185.4 cm (6' 1 ) 11/25/2021 8:56 AM CDT Body Mass Index 25.85 11/25/2021 8:56 AM CDT documented in this encounter Progress Notes * Hero Acevedo MD - 11/25/2021 8:45 AM CDT 55-year-old male here for general physical. Has intermittent joint discomfort and had a positive rheumatoid test. He is seen a loom fixer supervisor and no specific treatment has been initiated. Has a history of benign colon polyps and to remove last year that were benign and he is due back 2023 he is on a vitamin-D supplement. He has OCD and depression stable on Paxil and Effexor. He uses generic Advair and albuterol for asthma which is stable PSA last year 0.7, cholesterol 165, HDL 96, LDL 57, triglycerides 43. His allergies are listed in epic. He is a nonsmoker and a nondrinker. Review of systems: HEENT occasional headache sees well with glasses normal hearing respiratory no cough has had the COVID vaccines times for mild dyspnea. Cardiovascular blood pressure 138/84 no chest pain or palpitations GI no reflux some constipation benign colon polyps. some problems with urinary control and uses depends neuromuscular positive serology for RA. 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 Physical exam blood pressure 138/84 pulse 59 O2sats 98% TMs unremarkable no adenopathy in the neck or axilla. Thyroid is not enlarged. Chest clear. Cardiac exam no murmur or gallop. Abdomen nontender no organomegaly no back discomfort genital rectal deferred extremities intact pulses no edema light touch sensation normal diagnostic impression depression OCD stable, constipation using FiberCon, asthma on albuterol and generic Advair inhaler stable. EKG is being obtained flu shots being given screening labs are being obtained: CBC, CMP, lipidpanel, PSA, vitamin-D level and urinalysis. Patient will be notified of findings when available. documented in this encounter Procedure Notes * Hero Acevedo MD - 11/25/2021 8:45 AM CDTAssociated Order(s): ECG 12 lead Post-Procedure Diagnose(s): Screening cholesterol level ECG 12 lead Date/Time: 11/25/2021 4:29 PM Performed by: Hero Acevedo MD Authorized by: Hero Acevedo MD Rhythm: sinus rhythm Rate: normal QRS axis: normal Conduction: conduction normal ST Segments: ST segments normal T Waves: T waves normal Other findings: early repolarization Clinical impression: normal ECG documented in this encounter Plan of Treatment Not on file documented as of this encounter Procedures Procedure Name Priority Date/Time Associated Diagnosis Comments ECG 12-LEAD Routine 11/25/2021 4:29 PM CDT Screening cholesterol level documented in this encounter Results * ECG 12-LEAD (11/25/2021 4:29 PM CDT) Narrative Hero Acevedo MD - 11/25/2021 4:29 PM CDT Hero Acevedo MD ? 11/25/2021 ??4:30 PM ECG 12 lead Date/Time: 11/25/2021 4:29 PM Performed by: Hero Acevedo MD Authorized by: Hero Acevedo MD Rhythm: sinus rhythm Rate: normal QRS axis: normal Conduction: conduction normal ST Segments: ST segments normal T Waves: T waves normal Other findings: early repolarization Clinical impression: normal ECG Hero Acevedo MD ECG ORDERABLES Final Result * (ABNORMAL) Urinalysis reflex to microscopic (11/25/2021 10:20 AM CDT) Color, ur Straw Yellow [facility] Clarity, ur Cloudy(A) Clear [facility] Specific gravity, ur 1.008 1.003 - 1.030 [facility] pH, urine 6.5 [facility] Protein, ur ql 1+(A) Negative [facility] Glucose, ur ql Negative Negative [facility] Ketones, ur Negative Negative [facility] Bilirubin, ur Negative Negative [facility] Blood, ur Negative Negative [facility] Urobilinogen, ur <2.0 <2.0 mg/dL [facility] Nitrite, ur Positive(A) Negative [facility] Leukocyte esterase, ur 3+(A) Negative [facility] UA reflex comment Reflex to microscopic UA will be performed. [facility] Urine 11/25/2021 10:2 0 AM CDT 11/25/2021 1:42 PM CDT Narrative [facility] - 11/25/2021 1:58 PM CDT ?? Urine pH is affected by diet, medications, systemic acid-base disturbances, and renal tubular function. ??pH may affect urinary stone formation. ??For example, urine pH below 6.0 may help reduce the tendency for calcium phosphate stones and pH greater than 6.0 may reduce the tendency for uric acid stone formation. Source: [employer]. Last revised 03-25-2017 us Hero Acevedo MD LAB URINE ORDERABLES Final R esult [facility] Department [place] [address] * PSA screen (11/25/2021 9:45 AM CDT) PSA-Total 0.96 <=3.90 ng/mL [facility] Comment: Interpretive Data ?AGE ? SEX ?REFERENCE INTERVAL 0 minutes-150 years ?Female ?None 0 minutes-49 years ? Male ?None ? 50-59 years ? Male ?0-3.90 ? 60-69 years ? Male ?0-5.40 ? 70-79 years ? Male ?0-6.20 ? 80-150 years ?Male ?0-6.20 The Trent PSA Total assay procedure was used. Results from different manufacturers or methods may not be comparable. Serial testing should be performed using the same method. Current interpretive data last revised 21. Blood 11/25/2021 9:45 AM CDT 11/25/2021 1:42 PM CDT Hero Acevedo MD LAB BLOOD ORDERABLES Final R esult [facility] [place] [address] * Vitamin D 25 hydroxy (11/25/2021 9:45 AM CDT) Vitamin D 25-OH 57 30 - 80 ng/mL [facility] Blood 11/25/2021 9:45 AM CDT 11/25/2021 1:42 PM CDT us Hero Acevedo MD LAB BLOOD ORDERABLES Final R esult [facility] [place] [address] * Lipid panel (11/25/2021 9:45 AM CDT) Cholesterol 152 30 - 199 mg/dL [facility] Comment: Interpretive Data Ages < or = 19 years ??Acceptable: ? <170 mg/dL ??Borderline high: ??170-199 mg/dL ??High: ? >or= 200 mg/dL Ages > or = 20 years ??Desirable: ?<200 mg/dL ??Borderline high: ??200-239 mg/dL ??High: ? >or= 240 mg/dL Literature References: 1. Expert Panel on Integrated Guidelines for Cardiovascular Health and Risk Reduction in Children and Adolescents. Pediatrics 2011;128:S213 2. NCEP Expert Panel. Circulation 2004;110:227 Current Interpretive Data was last revised on 2017. Triglycerides 41 <=149 mg/dL [facility] Comment: Interpretive Data Ages < or = 9 years ??Acceptable: ? <75 mg/dL ??Borderline high: ??75-99 mg/dL ??High: ? >or= 100 mg/dL Ages 10 to 20 years ??Acceptable: ? <90 mg/dL ??Borderline high: ??90-129 mg/dL ??High: ? >or= 130 mg/dL Ages > or = 20 years ??Desirable: ?<150 mg/dL ??Borderline high: ??150-199 mg/dL ??High: ? 200-499 mg/dL ?Very high: ?? >or= 499 mg/dL Literature References: 1. Expert Panel on Integrated Guidelines for Cardiovascular Health and Risk Reduction in Children and Adolescents. Pediatrics 2011;128:S213 2. NCEP Expert Panel. Circulation 2004;110:227 Current Interpretive Data was last revised on 2017. HDL 86 >=40 mg/dL [facility] Comment: Interpretive Data Ages < or = 19 years ??Acceptable: ? >45 mg/dL ??Borderline low: ?? 40-45 mg/dL ??Low: ? <40 mg/dL Ages > or = 20 years ??Desirable: ?>or= 60 mg/dL ??Low: ? <40 mg/dL Literature References: 1. Expert Panel on Integrated Guidelines for Cardiovascular Health and Risk Reduction in Children and Adolescents. Pediatrics 2011;128:S213 2. NCEP Expert Panel. Circulation 2004;110:227 Current Interpretive Data was last revised on 2017. LDL, calculated 58 <=129 mg/dL [facility] Comment: Interpretive Data Ages < or = 19 years ??Acceptable: ? <110 mg/dL ??Borderline high: ??110-129 mg/dL ??High: ?>or= 130 mg/dL Ages > or = 20 years ??Optimal: ? <100 mg/dL ??Near optimal: ?100-129 mg/dL ??Borderline high: ?? 130-159 mg/dL ??High: ?>160 mg/dL Literature References: 1. Expert Panel on Integrated Guidelines for Cardiovascular Health and Risk Reduction in Children and Adolescents. Pediatrics 2011;128:S213 2. NCEP Expert Panel. Circulation 2004;110:227 Current Interpretive Data was last revised on 2017. Non-HDL Cholesterol 66 mg/dL [facility] Comment: Interpretive Data Ages < or = 19 years ??Acceptable: ?<120 mg/dL ??Borderline high: ??120-144 mg/dL ??High: ?>145 mg/dL Ages > or = 20 years ??When triglycerides are >200 mg/dL, Non-HDL cholesterol is a secondary target of ? therapy with treatment goals that are 30 mg/dL greater than the LDL cholesterol target. ? Literature References: 1. Expert Panel on Integrated Guidelines for Cardiovascular Health and Risk Reduction in Children and Adolescents. Pediatrics 2011;128:S213 2. NCEP Expert Panel. Circulation 2004;110:227 Current Interpretive Data was last revised on 2017. Chol/HDL ratio 2 [facility] Blood 11/25/2021 9:45 AM CDT 11/25/2021 1:42 PM CDT us Hero Acevedo MD LAB BLOOD ORDERABLES Final R esult [facility] Department [place] [address] * (ABNORMAL) Comprehensive metabolic panel (11/25/2021 9:45 AM CDT) Sodium 141 135 - 145 mmol/L [facility] Potassium, pl 5.4(H) 3.3 - 4.9 mmol/L [facility] Chloride 106 97 - 110 mmol/L [facility] CO2 25 22 - 32 mmol/L [facility] Anion gap 10 2 - 15 mmol/L [facility] BUN 32(H) 8 - 25 mg/dL [facility] Creatinine 2.39(H) 0.80 - 1.30 mg/dL [facility] Glucose 61(L) 70 - 199 mg/dL [facility] Comment: Interpretive Data Fasting glucose >/= 126 [...] Calcium 9.6 8.5 - 10.3 mg/dL [facility] Bilirubin, total 0.2 0.1 - 1.2 mg/dL [facility] Protein, pl 7.7 6.5 - 8.5 g/dL [facility] Albumin 4.0 3.5 - 5.0 g/dL [facility] Alk phos 116 40 - 130 Units/L [facility] ALT 23 7 - 55 Units/L [facility] AST 20 10 - 50 Units/L [facility] Blood 11/25/2021 9:45 AM CDT 11/25/2021 1:42 PM CDT us Hero Acevedo MD LAB BLOOD ORDERABLES Final R esult [facility] [place] [address] * (ABNORMAL) CBC with auto differential (11/25/2021 9:45 AM CDT) [facility] WBC 6.4 3.8 - 9.9 K/cumm [facility] Hgb 12.4(L) 13.0 - 17.5 g/dL [facility] Hct 39.9 38.9 - 50.3 % [facility] Plt 205 150 - 400 K/cumm [facility] MPV 11.1 9.1 - 12.3 fL [facility] RBC 4.24(L) 4.30 - 5.80 M/cumm [facility] MCV 94.1 81.3 - 96.4 fL [facility] MCH 29.2 27.1 - 33.3 pg [facility] MCHC 31.1(L) 32.3 - 35.7 g/dL [facility] RDW CV 13.1 11.1 - 14.9 % [facility] RDW SD 44.8 35.7 - 48.1 fL [facility] NRBC abs 0.00 0.00 - 0.01 K/cumm [facility] Blood 11/25/2021 9:45 AM CDT 11/25/2021 1:42 PM CDT Hero Acevedo MD LAB BLOOD ORDERABLES Final R esult [facility] [place] [address] documented in this encounter Visit Diagnoses Diagnosis Screening cholesterol level- Primary Screening for lipoid disorders Flu vaccine need Mild episode of recurrent major depressive disorder (HCC) Obsessive-compulsive disorder, unspecified type Mild intermittent asthma without complication Rheumatoid aortitis Other specified inflammatory polyarthropathies Colon polyp Benign neoplasm of colon Vitamin D deficiency Screening for blood or protein in urine Screening for unspecified condition Prostate cancer screening Special screening for malignant neoplasm of prostate Prostate cancer screening Special screening for malignant neoplasm of prostate Screening for blood or protein in urine Screening for unspecified condition Vitamin D deficiency Screening cholesterol level Screening for lipoid disorders Mild intermittent asthma without complication documented in this encounter Discontinued Medications Medication Sig Discontinue Reason Start Date End Da te iron,carbonyl-vitamin C 65 mg iron- 125 mg tablet,delayed release (DR/EC) Take by mouth 11/25/2021 lactobacillus comb no.10 20 billion cell capsule Take 1 capsule by mouth 11/25/2021 documented as of this encounter Orders Immunization/Injection Count Last Ordered Date First Ordered Date FLU VACCINE QUAD PF 6M+ IM - FLUARIX / FLULAVAL / FLUZONE- SYRINGE 1 11/25/2021 documented in this encounter Care Teams Business Mgr Relationship Specialty Start Date End Date Hero Acevedo MD [address] [place] [address] [address] Duncan S[address] [place] [address] PCP - General Cardiovascular Disease 11/23/17 3 documented as of this encounter
--- OUTSIDE RECORDS SUMMARY | 2024-03-04 10:36 | XMS_ITS | Encounter Summary ---
Author Organization [facility] Address [address] [place] [phone] Phone Care Team Providers Care Substitute Bus Driver Name Role Phone Hero Acevedo MD Primary Care Provider [phone] Reason for Visit * Reason Onset Date Comments Med Refill 02/14/2019 Encounter Details Date Type Department Care Team (Late st Contact Info) Description 02/14/[address] [address] Hero Acevedo MD [address] [place] [id number] Med Refill Social History Tobacco Use Types Packs/Day Years Used Date Smoking Tobacco: Never Smokeless Tobacco: Never Alcohol Use Standard Drinks/Week Comments Not Currently 0 (1 standard drink = 0.6 oz pur e alcohol) Sex and Gender Information Value Date Recorded Sex Assigned at Not on file 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 Gender Identity Not on file Sexual Orientation Not on file documented as of this encounter Miscellaneous Notes * Telephone Encounter - Hero Acevedo MD - 02/14/2019 4:50 PM CST wixela is generic for advair inhaler Patient has not been here for a year and will need office visit to evaluate pulmonary status and rxas needed UE CLEANER * Telephone Encounter - Pao Walker - 02/14/2019 1:46 PM CST Not In Med Listing Wixela Inhub 250/50 [id number] UE CLEANER documented in this encounter Plan of Treatment Not on file documented as of this encounter Visit Diagnoses Not on filedocumented in this encounter Care Teams Substitute Bus Driver Relationship Specialty Start Date End Date Hero Acevedo MD [facility] [address] Duncan SINGH [address] [place] [id number] PCP - General Cardiovascular Disease 11/23/17 3 documented as of this encounter
--- OUTSIDE RECORDS SUMMARY | 2024-03-04 10:36 | XMS_ITS | Encounter Summary ---
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 Order is pendedto [facility] per pt rqst. He was having incontinence prior to abx & this has not resolved. Orders placed; pt will have testing today or tomorrow. documented in this encounter Plan of Treatment Not on file documented as of this encounter Procedures Procedure Name Priority Date/Time Associated Diagnosis Comments REFLEXIVE URINE CULTURE Routine 12/22/2021 10:22 AM CDT URINALYSIS AND REFLEX TO MICROSCOPIC AND CULTURE Routine 12/22/2021 10:22 AM CDT Acute cystitis without hematuria URINE CULTURE Routine 12/22/2021 10:22 AM CDT documented in this encounter Results * Urine culture (12/22/2021 10:22 AM CDT) Urine culture [facility] Comment: ??CULTURE, URINE, ROUTINE ?Micro Number: ?[id number] ??Test Status: ? Final ??Specimen Source: ?? Urine ??Specimen Quality: ??Adequate ??Result: ?No Growth 12/22/2021 10:2 2 AM CDT 12/22/2021 10:23 AM CDT us Hero Acevedo MD LAB MICROBIOLOGY - GENERAL O RDERABLES Final Result [employer] [facility] [address] [place] [address] * REFLEXIVE URINE CULTURE (12/22/2021 10:22 AM CDT) Urine culture [facility] Comment:CULTURE INDICATED - RESULTS TO FOLLOW 12/22/2021 10:2 2 AM CDT 12/22/2021 10:23 AM CDT Hero Acevedo MD LAB MICROBIOLOGY - GENERAL O RDERABLES Final Result Performing Organization Address [facility] Co de Phone Number [facility] [address] [place] [phone] * (ABNORMAL) Urinalysis reflex to microscopic and culture Urine (12/22/2021 10:22 AM CDT) Color, ur YELLOW YELLOW [facility] Appearance, ur CLEAR CLEAR [facility] Specific gravity 1.006 1.001 - 1.035 [facility] pH, ur 6.5 5.0 - 8.0 [facility] Glucose, ur NEGATIVE NEGATIVE [facility] Bilirubin, ur NEGATIVE NEGATIVE [facility] Ketones, ur NEGATIVE NEGATIVE [facility] Blood, ur NEGATIVE NEGATIVE [facility] Protein, ur, quant NEGATIVE NEGATIVE [facility] Nitrites, ur NEGATIVE NEGATIVE [facility] Leukocyte esterase, ur TRACE(A) NEGATIVE [facility] WBC, ur NONE SEEN < OR = 5 /HPF [facility] RBC, ur NONE SEEN < OR = 2 /HPF [facility] Epithelial cells, squamous, ur NONE SEEN < OR = 5 /HPF [facility] Bacteria, ur, quant NONE SEEN NONE SEEN /HPF [facility] Hyaline cast NONE SEEN NONE SEEN /LPF [facility] Urine 12/22/2021 10:2 2 AM CDT 12/22/2021 10:23 AM CDT Hero Acevedo MD LAB MICROBIOLOGY - GENERAL O RDERABLES Final Result Performing Organization Address [facility]/ZIP Co de Phone Number [facility] [address] [place] [phone] documented in this encounter Visit Diagnoses Diagnosis Acute cystitis without hematuria- Primary documented in this encounter Care Teams Aids Nurse Relationship Specialty Start Date End Date Hero Acevedo MD [address] [facility] [address] Duncan SING[address] [place] [address] PCP - General Cardiovascular Disease 11/23/17 3 documented as of this encounter
--- OUTSIDE RECORDS SUMMARY | 2024-03-04 10:36 | XMS_ITS | Encounter Summary ---
Author Organization [facility] Healthcare Address [address] [place] [address] Care Team Providers Care Piper Installer Name Role Phone Hero Acevedo MD Primary Care Provider [phone] Reason for Visit * Auth/Cert Specialty Diagnoses / Procedures Referred By Contac t Referred To Contact Diagnoses Personal history of colonic polyps Personal history of colonic polyps [Z86.010] Procedures [facility] COLONOSCOPY FLX DX W/COLLJ SPEC WHEN PFRMD COLONOSCOPY Referral ID Status Reason Start Date Expiration Date Visits Re quested Visits Authorized [id number] 1 1 Encounter Details Date Type Department Care Team (Latest Contact Info) Description 08/27/2020 11:36 AM CDT - 08/27/2020 2:30 PM CDT Hospital Encounter [facility] [address] [place] [address] Khang Osullivan MD [address] [facility] [address] [place] [address] Personal history of colonic polyps Discharge Disposition: Discharge to home or self [...] file 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 Gender Identity Not on file Sexual Orientation Not on file documented as of this encounter Last Filed Vital Signs Vital Sign Reading Time Taken Comments Blood Pressure 124/82 08/27/2020 1:44 PM CDT Pulse 58 08/27/2020 1:44 PM CDT Temperature 36.6 ??C (97.9 ??F) 08/27/2020 12:22 PM C DT Respiratory Rate 17 08/27/2020 1:44 PM CDT Oxygen Saturation 100% 08/27/2020 1:44 PM CDT Inhaled Oxygen Concentration - - Weight 81.6 kg (180 lb) 08/27/2020 12:22 PM CDT Height 185.4 cm (6' 1 ) 08/27/2020 12:22 PM CDT Body Mass Index 23.75 08/27/2020 12:22 PM CDT documented in this encounter Medications at Time of Discharge cholecalciferol (VITAMIN D-3) 25 mcg (1,000 unit) tablet Take 4 tablets (4,000 Units total) by mouth daily PARoxetine (PAXIL) 30 mg tabletIndications: Depression, unspecified depression type Take 1 tablet (30 mg total) by mouth every morning. 30 tablet 3 11/29/2017 polycarbophil (FIBERCON) 625 mg tablet Take 1 tablet (625 mg total) by mouth daily albuterol HFA (ProAir HFA) 90 mcg/actuation inhalerIndications :Moderate persistent asthma without complication Inhale 2 puffs every 4 (four) hours as needed for wheezing or shortness of breath 3 Inhaler 3 02/28/2020 2 fluticasone propion-salmeteroL (Advair Diskus) 250-50 mcg/dose diskus inhalerIndications :Maintenance Therapy for Asthma Inhale 1 puff daily Rinse mouth with water after use to reduce aftertaste and incidence of candidiasis. Do not swallow. 1 each 3 11/28/2019 2 lactobacillus comb no.10 20 billion cell capsule Take 1 capsule by mouth 2 turmeric root extract 500 mg capsuleIndications :Patient unsure of dose Take 1 capsule by mouth every other day 2 UNABLE TO FINDIndications:Co ffee enema per rectum Administer 1 each into affected nostril(s) 2 (two) times a week Coffee enema 2 venlafaxine XR (EFFEXOR-XR) 37.5 mg 24 hr capsuleIndications :Depression, unspecified depression type Take 1 capsule (37.5 mg total) by mouth daily. 30 capsule 3 11/29/2017 4 documented as of this encounter Discharge Disposition Disposition Code Departure Means Destination Discharge to home or self care documented in this encounter H&P Notes * Khang Osullivan MD - 08/27/2020 12:43 PM CDT PRE-PROCEDURE REQUIRED H AND P FOR PROCEDURE. THIS IS A NON-BILLABLE EVALUATION FOR SAFETY OF PROCEDURE FULL MEDICAL H AND P INFORMATION SHOULD BE OBTAINED FROM THE PRIMARY CARE PHYSICIAN RECORDS. The patient was referred for colonoscopy for the following indication: previous adenomatous polyp The patient's most recent colonoscopy was 3 years ago Social History Tobacco Use ??? Smoking status: Never Smoker ??? Smokeless tobacco: Never Used Substance Use Topics ??? Alcohol use: Not Currently History reviewed. No pertinent family history. Past Medical History: Diagnosis Date ??? Anxiety ??? Asthma ??? Chronic fatigue ??? Constipation ??? Depression ??? OCD (obsessive compulsive disorder) Past Surgical History: Procedure Laterality Date ??? COLONOSCOPY 09/30/2017 Benign colon polyp ??? FLEXIBLE SIGMOIDOSCOPY 01/12/2019 NAD ??? KNEE SURGERY Glutathione (bulk), Prozac [fluoxetine], and Tetracyclic antidepressants Prior to Admission medications Medication Sig Start Date End Date Taking? Authorizing Provider albuterol HFA (ProAir HFA) 90 mcg/actuation inhaler Inhale 2 puffs every 4 (four) hours as needed for wheezing or shortness of breath 02/28/20 Yes Hero Acevedo MD cholecalciferol (VITAMIN D-3) 25 mcg (1,000 unit) tablet Take 4,000 Units by mouth daily Yes ProviderFartun MD fluticasone propion-salmeteroL (Advair Diskus) 250-50 mcg/dose diskus inhaler Inhale 1 puff daily Rinse mouth with water after use to reduce aftertaste and incidence of candidiasis. Do not swallow. 11/28/19 Yes Hero Acevedo MD lactobacillus comb no.10 20 billion cell capsule Take 1 capsule by mouth Yes Fartun Khoury MD PARoxetine (PAXIL) 30 mg tablet Take 1 tablet (30 mg total) by mouth every morning. 11/29/17 08/27/20Yes Hero Acevedo MD polycarbophil (FIBERCON) 625 mg tablet Take 625 mg by mouth daily Yes Fartun Khoury MD turmeric root extract 500 mg capsule Take 1 capsule by mouth every other day Yes ProvideraFrtun MD UNABLE TO FIND Administer 1 each into affected nostril(s) 2 (two) times a week Coffee enema Yes Fartun Khoury MD venlafaxine XR (EFFEXOR-XR) 37.5 mg 24 hr capsule Take 1 capsule (37.5 mg total) by mouth daily. 11/29/17 08/27/20 Yes Hero Acevedo MD omega 7-hpj-ezz-fish-turmeric 417 mg-120 mg- 276 mg-600 mg capsule Take by mouth 08/27/20 Yes Fartun Khoury MD PARoxetine (PAXIL) 20 mg tablet 02/19/19 08/27/20 Yes Fartun Khoury MD FLUZONE QUAD 3290-2228, PF, 60 mcg (15 mcg x 4)/0.5 mL syringe TO BE ADMINISTERED BY IMMUNIZING PHARMACIST 01/14/18 08/27/20 Fartun Khoury MD polyethylene glycol-electrolytes (NULYTELY) 420 gram solution MIX AND DRINK UTD 12/07/17 08/27/20 Fartun Khoury MD Review of Systems Review of Systems Constitutional: Negative. HENT: Negative for trouble swallowing and voice change. Respiratory: Negative for cough, shortness of breath and wheezing. Cardiovascular: Negative for chest pain, palpitations and leg swelling. Gastrointestinal: Negative for abdominal distention, abdominal pain, anal bleeding, blood in stool,constipation, diarrhea, nausea, rectal pain and vomiting. Denies: fecal incontinence, anal itching, incomplete evacuation, change in bowels, straining with aBM,urgency. Denies: pain with swallowing food/liquid, heartburn, belching, bloating, aspiration of solids/liquids, odynophagia Skin: Negative for wound. Neurological: Negative for dizziness. Psychiatric/Behavioral: Negative for agitation and confusion. OBJECTIVE: Vitals: Most Recent : Vitals: 08/27/20 1222 BP: 140/91 Pulse: 60 Resp: 17 Temp: 36.6 ??C (97.9 ??F) TempSrc: Temporal SpO2: 99% Weight: 81.6 kg (180 lb) Height: 185.4 cm (6' 1 ) Physical Exam Constitutional: Appearance: She is well-developed. HENT: Head: Normocephalic and atraumatic. Eyes: General: No scleral icterus. Cardiovascular: Rate and Rhythm: Normal rate and regular rhythm. Heart sounds: Normal heart sounds. Pulmonary: Effort: Pulmonary effort is normal. Breath sounds: Normal breath sounds. Abdominal: General: Bowel sounds are normal. There is no distension. Palpations: Abdomen is soft. Tenderness: There is no tenderness. Hernia: No hernia is present. Skin: General: Skin is warm and dry. Neurological: General: No focal deficit present. Psychiatric: Mood and Affect: Mood normal. Thought Content: Thought content normal. Judgment: Judgment normal. A colonoscopy is recommended for the reasons stated above. The risks and complications of the procedure have been explained to the patient. Informed consent was signed. documented in this encounter Procedure Notes * Khang Osullivan MD - 08/27/2020 12:30 PM CDTAssociated Order(s): COLONOSCOPY ENDOSCOPY LAB Patient Name: Donell Baker Procedure Date: 08/27/2020 12:30 PM Admit Type: Outpatient Room: Endo 2 Date of : 1965 Instrument Name: [id number] Gender: Male Note Status: Finalized Procedure: Colonoscopy Indications: High risk colon cancer surveillance: Personal history of colonic polyps Comorbidities No comorbidities Providers: Khang Osullivan M.D. Referring MD: Hero Acevedo M.D. Medicines: Propofol per Anesthesia Complications: No immediate complications. Estimated Blood Loss: Estimated blood loss: none. Procedure: Pre-Anesthesia Assessment: - Prior to the procedure, a History and Physical was performed, and patient medications and allergies were reviewed. The patient's tolerance of previous anesthesia was also reviewed. The risks and benefits of the procedure and the sedation options and risks were discussed with the patient. All questions were answered, and informed consent was obtained. Prior Anticoagulants: The patient has taken no previous anticoagulant or antiplatelet agents. ASA Grade Assessment: II - A patient with mild systemic disease. After reviewing the risks and benefits, the patient was deemed in satisfactory condition to undergo the procedure. - The risks and benefits of the procedure and the sedation options and risks were discussed with the patient. All questions were answered and informed consent was obtained. The benefits, risks and alternatives of the procedure and sedation were discussed and informed consent was obtained. All questions were answered. Please refer to the signed informed consent document in the medical record. The scope was passed under direct vision. The Colonoscope was introduced through the anus and advanced to the the cecum, identified by appendiceal orifice and ileocecal valve. The colonoscopy was performed without difficulty. The patient tolerated the procedure well. The quality of the bowel preparation was evaluated using the BBPS (Joy Bowel Preparation Scale) with scores of: Right Colon = 1 (portion of mucosa seen, but other areas not well seen due to staining, residual stool and/or opaque liquid) and Left Colon = 2 (minor amount of residual staining, small fragments of stool and/or opaque liquid, but mucosa seen well). The total BBPS score equals 3. The quality of the bowel preparation was fair. The bowel preparation used was Miralax via split dose instruction. Bowel prep was administered using a split dose. Findings: The perianal and digital rectal examinations were normal. Two sessile polyps were found in the cecum. The polyps were 5 to 10 mm in size. These polyps were removed with a hot snare. Resection and retrieval were complete. The colon (entire examined portion) was moderately tortuous. Advancing the scope required changing the patient's position. The retroflexed view of the distal rectum and anal verge was normal and showed no anal or rectal abnormalities. Impression: - Preparation of the colon was fair. - Two 5 to 10 mm polyps in the cecum, removed with a hot snare. Resected and retrieved. - Tortuous colon. - The distal rectum and anal verge are normal on retroflexion view. Recommendation: - Patient has a contact number available for emergencies. The signs and symptoms of potential delayed complications were discussed with the patient. Return to normal activities tomorrow. Written discharge instructions were provided to the patient. - Resume previous diet. - Continue present medications. - Await pathology results. - Repeat colonoscopy in 3 years for surveillance. - Return to GI office as previously scheduled. Attending Participation: I personally performed the entire procedure. Electronically signed by Khang Osullivan MD Khang Osullivan M.D. 08/27/2020 1:23:37 PM Number of Addenda: 0 Note Initiated On: 08/27/2020 12:30 PM Scope In: Scope Out: documented in this encounter Plan of Treatment Not on file documented as of this encounter Procedures Procedure Name Priority Date/Time Associated Diagnosis Comments SURGICAL PATHOLOGY Routine 08/27/2020 1: 19 PM CDT Personal history of colonic polyps COLON REMOVAL SNARE 08/27/2020 1 2:38 PM CDT Personal history of colonic polyps COLONOSCOPY 08/27/2020 12:30 PM CDT documented in this encounter Results * Surgical pathology (08/27/2020 1:19 PM CDT) Tissue (Polyp(s), colon/colorectal, esophageal, gastric) 08/27/2020 1:04 PM CDT Narrative PATHOLOGY [facility] - 08/29/2020 7:50 AM CDT [address] ??[id number] Tele: ?? Adilene Castellanos MD - Machine Operator Hop Pickerdigital data analyst PATHOLOGY REPORT Patient Name: ??DONELL BAKER Address: ??[address] [place] [address][birth year] Gender: ??M : ??1965 (Age: 54) Service: ??Gastro Location: ??[facility] ?? Hospital #: ??[id number] Patient Type: ??[facility] Accession #: ? [id number] Taken: ? 08/27/2020 Received ? 08/28/2020 Reported: ? 08/29/2020 Physician(s): ? Khang Osullivan M.D. Hero Acevedo M.D. DIAGNOSIS: Colon, cecum, polypectomy X2: ? - Tubular adenoma fragments - Negative for high-grade dysplasia or malignancy 08/29/2020 07:50 Examining Pathologist: Milad Syed M.D. Report Reviewed and Electronically Signed By ??Milad Syed M.D. SPECIMEN TYPE: A: CECUM POLYP X2 CLINICAL IMPRESSION AND HISTORY: High risk colon cancer surveillance: Personal history of colonic polyps. ??Findings include two 5-10 mm polyps in the cecum, tortuous colon, distal rectum and anal verge are normal. GROSS DESCRIPTION: Received in a container of formalin labeled with the patient's name Donell Baker and cecum polyp ? ? 2 contains multiple light newton tissue fragments measuring 2.2 x 0.5 x 0.1 cm in aggregate. ??Due to the color and size of the specimen, hematoxylin is used. The specimen is filtered and submitted entirely in cassette A1. [facility]/08/28/2020 11:53 ? [facility] MICROSCOPIC DESCRIPTION: Sections from the cecum polyp X2 show numerous fragments of tubular adenoma without high-grade dysplasia or malignancy. Clerical Data Follows A; [id number] REPORT IMAGES AND/OR SCANNED DOCUMENTS ONLY VIEWABLE IN PDF FORMAT The immunohistochemical test(s) cited in this report, if any, was developed and its performance characteristics determined by [facility] Pathology Department. ??It has not been cleared or approved by the U.S. Food and Drug Administration. ??The FDA has determined that such clearance or approval is not necessary. ??This test is used for clinical purposes. ??It should not be regarded as investigational or for research. ??[facility] Laboratory is certified under the Clinical Laboratory Improvement Amendments of 1988 (CLIA) as qualified to perform high complexity testing. ??Immunostains were performed on formalin-fixed paraffin embedded tissue using a polymer diaminobenzidine chromogen detection system. Antibodies used may include clone SP1 (rabbit monoclonal, estrogen receptor), clone 1E2 (rabbit monoclonal progesterone receptor), Ki-67 (rabbit monoclonal, 30-9), and CD117 (rabbit polyclonal, c-kit). Khang Osullivan MD LAB PATHOLOGY ORDERABLES Final R esult PATHOLOGY [facility] Laboratory Receiving [address] [place] [address] * COLONOSCOPY (08/27/2020 12:30 PM CDT) Anatomical Region Laterality Modality Other Narrative Procedure Note Khang Osullivan MD - 08/27/2020 12:30 PM CDT ENDOSCOPY LAB Patient Name: Donell Bkaer Procedure Date: 08/27/2020 12:30 PM Admit Type: Outpatient Room: [facility] 2 Date of : 1965 Instrument Name: CF-HQ750 Gender: Male Note Status: Finalized Procedure: Colonoscopy Indications: High risk colon cancer surveillance: Personalhistory of colonic polyps Comorbidities No comorbidities Providers: Khang Osullivan M.D. Referring MD: Hero Acevedo M.D. Medicines: Propofol per Anesthesia Complications: No immediate complications. Estimated Blood Loss: Estimated blood loss: none. Procedure: Pre-Anesthesia Assessment: - Prior to the procedure, a History and Physicalwas performed, and patient medications and allergieswere reviewed. The patient's tolerance of previous anesthesia was also reviewed. The risks andbenefits of the procedure and the sedation options and risks were discussed with the patient. All questions were answered, and informed consent was obtained. Prior Anticoagulants: The patient has taken no previous anticoagulant or antiplatelet agents. ASA Grade Assessment: II - A patient with mild systemicdisease. After reviewing the risks and benefits, the patient was deemed in satisfactory condition to undergo the procedure. - The risks and benefits of the procedure and the sedation options and risks were discussed with the patient. All questions were answered and informed consent was obtained. The benefits, risks and alternatives of theprocedure and sedation were discussed and informed consentwas obtained. All questions were answered. Please referto the signed informed consent document in the medical record. The scope was passed under direct vision.The Colonoscope was introduced through the anus and advanced to the the cecum, identified byappendiceal orifice and ileocecal valve. The colonoscopy was performed without difficulty. The patient tolerated the procedure well. The quality of the bowel preparation was evaluated using the BBPS (BostonBowel Preparation Scale) with scores of: Right Colon = 1 (portion of mucosa seen, but other areas not wellseen due to staining, residual stool and/or opaqueliquid) and Left Colon = 2 (minor amount of residualstaining, small fragments of stool and/or opaque liquid, but mucosa seen well). The total BBPS score equals 3.The quality of the bowel preparation was fair. Thebowel preparation used was Miralax via split dose instruction. Bowel prep was administered using asplit dose. Findings: The perianal and digital rectal examinations were normal. Two sessile polyps were found in the cecum. The polyps were 5 to 10mm in size. These polyps were removed with a hot snare. Resection and retrieval were complete. The colon (entire examined portion) was moderately tortuous.Advancing the scope required changing the patient's position. The retroflexed view of the distal rectum and anal verge was normaland showed no anal or rectal abnormalities. Impression: - Preparation of the colon was fair. - Two 5 to 10 mm polyps in the cecum, removed witha hot snare. Resected and retrieved. - Tortuous colon. - The distal rectum and anal verge are normal on retroflexion view. Recommendation: - Patient has a contact number available for emergencies. The signs and symptoms of potential delayed complications were discussed with thepatient. Return to normal activities tomorrow. Written discharge instructions were provided to thepatient. - Resume previous diet. - Continue present medications. - Await pathology results. - Repeat colonoscopy in 3 years for surveillance. - Return to GI office as previously scheduled. Attending Participation: I personally performed the entire procedure. Electronically signed by Khang Osullivan MD Khang Osullivan M.D. 08/27/2020 1:23:37 PM Number of Addenda: 0 Note Initiated On: 08/27/2020 12:30 PM Scope In: Scope Out: Khang Osullivan MD ENDOSCOPY PROCEDURES Final Resul t documented in this encounter Visit Diagnoses Diagnosis Personal history of colonic polyps- Primary documented in this encounter Admitting Diagnoses Diagnosis Personal history of colonic polyps documented in this encounter Administered Medications Inactive Administered Medications - up to 3 most recent administrations Medication Order MAR Action Action Date Dose Rate Site Lactated Ringer's (LR) infusion 30 mL/hr, intravenous, Continuous, Starting on Wed08/27/20 at 1245, For 1 hour, Pre-Procedure (GI), If anesthesia prefers Restarted 08/27/2020 1:11 PM CDT Rate/Dose Verify 08/27/2020 12:37 PM CDT 30 mL/ hr New Bag 08/27/2020 12:35 PM CDT 30 mL/hr 30 mL/hr documented in this encounter Discontinued Medications Medication Sig Discontinue Reason Start Date End Da te FLUZONE QUAD 0418-1906, PF, 60 mcg (15 mcg x 4)/0.5 mL syringe TO BE ADMINISTERED BY IMMUNIZING PHARMACIST Therapy completed 01/14/2018 08/27/2020 PARoxetine (PAXIL) 20 mg tablet Dose adjustment 02/19/2019 08/27/2020 polyethylene glycol-electrolytes (NULYTELY) 420 gram solutionIndications:B owel Evacuation MIX AND DRINK UTD Therapy completed 12/07/2017 08/27/2020 omega 8-sev-qwf-fish-turmer ic 417 mg-120 mg- 276 mg-600 mg capsule Take by mouth Therapy completed 08/27/2020 documented as of this encounter Historical Medications * This list may reflect changes made after this encounter. polycarbophil (FIBERCON) 625 mg tablet Take 1 tablet (625 mg total) by mouth daily cholecalciferol (VITAMIN D-3) 25 mcg (1,000 unit) tablet Take 4 tablets (4,000 Units total) by mouth daily lactobacillus comb no.10 20 billion cell capsule Take 1 capsule by mouth 2 UNABLE TO FINDIndications: Coffee enema per rectum Administer 1 each into affected nostril(s) 2 (two) times a week Coffee enema 2 turmeric root extract 500 mg capsuleIndicatio ns:Patient unsure of dose Take 1 capsule by mouth every other day 2 omega 2-qul-fsg-fish-t urmeric 417 mg-120 mg- 276 mg-600 mg capsule Take by mouth 1 added in this encounter Active and Recently Administered Medications Times are shown in CDT. Continuous Medication Order 08/25/2020 08/26/2020 08/27/2020 Lactated Ringer's (LR) infusion 30 mL/hr, intravenous, Continuous, Starting on e 08/27/20 at 1245, For 1 hour, Pre-Procedure (GI), If anesthesia prefers 1235 (New Bag - Prov ider: Alma Machuca RN)1237 (Rate/Dose Verify - Provider: Khang Osullivan MD)1310 (Paused - Provider: Keya Miner CRNA - Comment: Switch to gravity)1311 (Restarted - Provider: Keya Miner CRNA) Lactated Ringer's (LR) infusion 125 mL/hr, intravenous, Continuous, Starting on 08/27/20 at 1400, Recovery (GI) 1400 (Due) sodium chloride 0.9% infusion 30 mL/hr, intravenous, Continuous, Starting on e 08/27/20 at 1245, For 1 hour, Pre-Procedure (GI), If anesthesia prefers 1245 (Due) sodium chloride 0.9% infusion 125 mL/hr, intravenous, Continuous, Starting on e 08/27/20 at 1400, Recovery (GI) 1400 (Due) PRN Medication Order 08/25/2020 08/26/2020 08/27/2020 ondansetron (ZOFRAN) injection 4 mg 4 mg, intravenous, Administer over 2 Minutes, Every 30 min PRN, nausea, vomiting, Starting on e 08/27/20 at 1318, For 2 doses, Recovery (GI), Indications: Nausea and Vomiting documented in this encounter Orders Medications Ordered That Zach ht Not Have Been Administered Count Last Ordered Date First Ordered Date Lactated Ringer's (LR) infusion 1 1 ondansetron (ZOFRAN) injection 4 mg 1 08/27 sodium chloride 0.9% infusion 2 08/27/2020 Discharge Count Last Ordered Date First Orde red Date DISCHARGE PATIENT 1 08/27/2020 documented in this encounter Care Teams Piper Installer Relationship Specialty Start Date End Date Hero Acevedo MD [address] [facility] [address] Duncan SINGH [address] [place] [id number] PCP - General Cardiovascular Disease 11/23/17 3 documented as of this encounter
--- OUTSIDE RECORDS SUMMARY | 2024-03-04 10:36 | XMS_ITS | Encounter Summary ---
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 Gender Identity Not on file Sexual Orientation Not on file documented as of this encounter Plan of Treatment Not on file documented as of this encounter Procedures Procedure Name Priority Date/Time Associated Diagnosis Comments POCT OCCULT BLOOD STOOL, NOT FOR NEOPLASM SCREENING Routine 06/06/2021 2:21 PM CDT Blood in stool documented in this encounter Results * POCT occult blood stool (06/06/2021 2:21 PM CDT) Fecal occult blood, POC Negative Aboriginal Liaison Officer Lot Number [id number] QC Control Line Acceptable Occult Blood Card Lot Number [id number] Stool 06/06/2021 2:21 PM CDT Hero Acevedo MD POINT OF CARE TEST ORDERABLE S Final Result documented in this encounter Visit Diagnoses Diagnosis Blood in stool- Primary documented in this encounter Care Teams Mitigation Supervisor Relationship Specialty Start Date End Date Hero Acevedo MD [address] [place] [address] DR Duncan SINGH [address] [place] [address] PCP - General Cardiovascular Disease 11/23/17 7 3 documented as of this encounter
--- OUTSIDE RECORDS SUMMARY | 2024-03-04 10:36 | XMS_ITS | Encounter Summary ---
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 ER GRADER documented in this encounter Plan of Treatment Not on file documented as of this encounter Visit Diagnoses Not on filedocumented in this encounter Care Teams Piercing Machine Operator Relationship Specialty Start Date End Date Hero Acevedo MD [address] [facility] [address] Duncan SINGH [address] [place] [address] PCP - General Cardiovascular Disease 11/23/17 3 documented as of this encounter
--- OUTSIDE RECORDS SUMMARY | 2024-03-04 10:36 | XMS_ITS | Encounter Summary ---
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 Gender Identity Not on file Sexual Orientation Not on file documented as of this encounter Ordered Prescriptions Prescription Sig Dispense Quantity Refills Last Filled Start Date End Date cephalexin (KEFLEX) 500 mg capsuleIndications :Urinary Tract/Genitourinar y Infection Take 1 capsule (500 mg total) by mouth 2 (two) times a day for 14 days 28 capsule 12/04/2021 2 documented in this encounter Plan of Treatment Not on file documented as of this encounter Visit Diagnoses Diagnosis Acute cystitis without hematuria- Primary documented in this encounter Discontinued Medications Medication Sig Discontinue Reason Start Date End Da te ciprofloxacin (CIPRO) 500 mg tabletIndications:Urinar y Tract/Genitourinary Infection Take 1 tablet (500 mg total) by mouth 2 (two) times a day for 10 days 12/02/2021 12/04/2021 documented as of this encounter Care Teams Regulatory Product Manager Relationship Specialty Start Date End Date Hero Acevedo MD [address] [facility] [address] Duncan SINGH [address] [place] [phone] PCP - General Cardiovascular Disease 11/23/17 3 documented as of this encounter
--- OUTSIDE RECORDS SUMMARY | 2024-03-04 10:36 | XMS_ITS | Encounter Summary ---
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 Gender Identity Not on file Sexual Orientation Not on file documented as of this encounter Plan of Treatment Not on file documented as of this encounter Procedures Procedure Name Priority Date/Time Associated Diagnosis Comments THERESE QUALITATIVE WITH REFLEX TO THERESE QUANTITATIVE Routine 04/30/2021 4:30 PM WHARFINGER CHIEF Arthralgia, unspecified joint EGFR Routine 04/30/2021 4:30 PM WHARFINGER CHIEF Arthralgia, unspecified joint DIFFERENTIAL AUTO Routine 04/30/2021 4:3 0 PM WHARFINGER CHIEF Arthralgia, unspecified joint CBC WITH AUTO DIFFERENTIAL Routine 04/30/2021 4:30 PM WHARFINGER CHIEF Arthralgia, unspecified joint CYCLIC CITRUL PEPTIDE ANTIBODY, IGG Routine 04/30/2021 4:30 PM WHARFINGER CHIEF Arthralgia, unspecified joint ERYTHROCYTE SEDIMENTATION RATE Routine 04/30/2021 4:30 PM WHARFINGER CHIEF Arthralgia, unspecified joint RHEUMATOID FACTOR Routine 04/30/2021 4:3 0 PM WHARFINGER CHIEF Arthralgia, unspecified joint CRP (ACUTE PHASE) Routine 04/30/2021 4:3 0 PM WHARFINGER CHIEF Arthralgia, unspecified joint COMPREHENSIVE METABOLIC PANEL Routine 04/30/2021 4:30 PM WHARFINGER CHIEF Arthralgia, unspecified joint documented in this encounter Results * (ABNORMAL) eGFR (04/30/2021 4:30 PM WHARFINGER CHIEF) [facility] eGFR 49(L) 90 - 130 mL/min/1. 73 m2 [facility] Comment: Interpretive Data Reference Interval Normal ?>/= [...] interpretive data was last reviewed 2021. Blood 04/30/2021 4:30 PM WHARFINGER CHIEF 04/30/2021 6:45 PM WHARFINGER CHIEF us Shruti [facility] BLOOD ORDERABL ES Final Result [facility] [address] [facility] Department [place] [address] * Differential, auto (04/30/2021 4:30 PM WHARFINGER CHIEF) Neutrophil abs 3.4 1.7 - 6.5 K/cumm [facility] Imm gran abs 0.0 0.0 - 0.1 K/cumm [facility] Lymphocyte abs 1.3 0.8 - 3.3 K/cumm [facility] Monocyte abs 0.5 0.2 - 0.8 K/cumm [facility] Eosinophil abs 0.1 0.0 - 0.5 K/cumm [facility] Basophil abs 0.1 0.0 - 0.1 K/cumm [facility] Neutrophil pct 62.9 % [facility] Comment: Interpretive Data Percent cell count reference ranges are not reported, since discordance with absolute values may lead to misinterpretation of CBC data. Current Interpretive Data was last revised on 2017. Imm gran pct 0.2 % [facility] Comment: Interpretive Data Percent cell count reference ranges are not reported, since discordance with absolute values may lead to misinterpretation of CBC data. Current Interpretive Data was last revised on 2017. Lymphocyte pct 24.7 % [facility] Comment: Interpretive Data Percent cell count reference ranges are not reported, since discordance with absolute values may lead to misinterpretation of CBC data. Current Interpretive Data was last revised on 2017. Monocyte pct 8.5 % [facility] Comment: Interpretive Data Percent cell count reference ranges are not reported, since discordance with absolute values may lead to misinterpretation of CBC data. Current Interpretive Data was last revised on 2017. Eosinophil pct 2.4 % [facility] Comment: Interpretive Data Percent cell count reference ranges are not reported, since discordance with absolute values may lead to misinterpretation of CBC data. Current Interpretive Data was last revised on 2017. Basophil pct 1.3 % [facility] Comment: Interpretive Data Percent cell count reference ranges are not reported, since discordance with absolute values may lead to misinterpretation of CBC data. Current Interpretive Data was last revised on 2017. Blood 04/30/2021 4:30 PM WHARFINGER CHIEF 04/30/2021 6:41 PM WHARFINGER CHIEF Shruti [facility] BLOOD ORDERABL ES Final Result [facility] [address] [facility] Department [place] [address] * (ABNORMAL) CBC with auto differential (04/30/2021 4:30 PM WHARFINGER CHIEF) WBC 5.4 3.8 - 9.9 K/cumm [facility] Hgb 12.4(L) 13.0 - 17.5 g/dL [facility] Hct 37.6(L) 38.9 - 50.3 % [facility] Plt 196 150 - 400 K/cumm [facility] MPV 11.2 9.1 - 12.3 fL [facility] RBC 4.10(L) 4.30 - 5.80 M/cumm [facility] MCV 91.7 81.3 - 96.4 fL [facility] MCH 30.2 27.1 - 33.3 pg [facility] MCHC 33.0 32.3 - 35.7 g/dL [facility] RDW CV 13.1 11.1 - 14.9 % [facility] RDW SD 43.8 35.7 - 48.1 fL [facility] NRBC abs 0.00 0.00 - 0.01 K/cumm [facility] Blood 04/30/2021 4:30 PM WHARFINGER CHIEF 04/30/2021 6:41 PM WHARFINGER CHIEF Shruti [facility] BLOOD ORDERABL ES Final Result [facility] [address] [facility] Department [place] [address] * (ABNORMAL) Comprehensive metabolic panel (04/30/2021 4:30 PM WHARFINGER CHIEF) Sodium 140 135 - 145 mmol/L [facility] Potassium, pl 4.6 3.3 - 4.9 mmol/L [facility] Chloride 104 97 - 110 mmol/L [facility] CO2 30 22 - 32 mmol/L [facility] Anion gap 6 2 - 15 mmol/L [facility] BUN 26(H) 8 - 25 mg/dL [facility] Creatinine 1.63(H) 0.80 - 1.30 mg/dL [facility] Glucose 65(L) 70 - 199 mg/dL [facility] Comment: Interpretive Data Fasting glucose [...] 2017. Calcium 10.9(H) 8.5 - 10.3 mg/dL [facility] Bilirubin, total 0.3 0.1 - 1.2 mg/dL [facility] Protein, pl 7.7 6.5 - 8.5 g/dL [facility] Albumin 4.2 3.5 - 5.0 g/dL [facility] Alk phos 92 40 - 130 Units/L [facility] ALT 23 7 - 55 Units/L [facility] AST 22 10 - 50 Units/L [facility] Blood 04/30/2021 4:30 PM WHARFINGER CHIEF 04/30/2021 6:41 PM WHARFINGER CHIEF Shruti [facility] BLOOD ORDERABL ES Final Result Performing Organization Address City/[facility] Co de Phone Number [facility] Department [place] [address] * Rheumatoid factor (04/30/2021 4:30 PM WHARFINGER CHIEF) [facility] Rheumatoid factor, quant 11.0 0.1 - 15.0 IUnits/mL [facility] Blood 04/30/2021 4:30 PM WHARFINGER CHIEF 04/30/2021 6:41 PM WHARFINGER CHIEF Shruti [facility] BLOOD ORDERABL ES Final Result Performing Organization Address [facility] de Phone Number [facility] [place] [address] * (ABNORMAL) Cyclic citrul peptide antibody, IgG (04/30/2021 4:30 PM WHARFINGER CHIEF) [facility] CCP Ab >300.0(H) <=2.9 units/mL [facility] Comment: Interpretive data Negative: <3 units/mL Positive: > or equal to 3 units/mL Current interpretive data was last revised on 2016. Blood 04/30/2021 4:30 PM WHARFINGER CHIEF 04/30/2021 6:41 PM WHARFINGER CHIEF Shruti [facility] BLOOD ORDERABL ES Final Result Performing Organization Address [facility] Co de Phone Number [facility] [place] [address] * (ABNORMAL) Erythrocyte sedimentation rate (04/30/2021 4:30 PM WHARFINGER CHIEF) Pathologist [facility] Erythrocyte sedimentation rate 29(H) 1 - 20 mm/hr [facility] Blood 04/30/2021 4:30 PM WHARFINGER CHIEF 04/30/2021 6:41 PM WHARFINGER CHIEF Shruti Dougie Haley OR LAB BLOOD ORDERABL ES Final Result Performing Organization Address City/[facility]/ZIP Co de Phone Number [facility] Department [place] [address] * CRP (acute phase) (04/30/2021 4:30 PM WHARFINGER CHIEF) Pathologist [facility] CRP 4.2 <=10.0 mg/L [facility] Blood 04/30/2021 4:30 PM WHARFINGER CHIEF 04/30/2021 6:41 PM WHARFINGER CHIEF [facility] Dougie Haley OR LAB BLOOD ORDERABL ES Final Result Performing Organization Address City/[facility] [place] [address] * THERESE qualitative with reflex to THERESE Quantitative (04/30/2021 4:30 PM WHARFINGER CHIEF) Pathologist [facility] THERESE Negative [facility] Comment: Interpretive Data Normal range for THERESE [...] revised on 2019. Blood 04/30/2021 4:30 PM WHARFINGER CHIEF 04/30/2021 6:41 PM WHARFINGER CHIEF us Shruti [facility] BLOOD ORDERABL ES Final Result [facility] Department [place] [address] documented in this encounter Visit Diagnoses Diagnosis Arthralgia, unspecified joint documented in this encounter Care Teams Physical Director Relationship Specialty Start Date End Date Hero Acevedo MD [address] [facility] [address] Duncan SINGH [address] [place] [id number] PCP - General Cardiovascular Disease 11/23/17 3 documented as of this encounter
--- OUTSIDE RECORDS SUMMARY | 2024-03-04 10:36 | XMS_ITS | Encounter Summary ---
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 Gender Identity Not on file Sexual Orientation Not on file documented as of this encounter Ordered Prescriptions Prescription Sig Dispense Quantity Refills Last Filled Start Date End Date ciprofloxacin (CIPRO) 500 mg tabletIndications: Urinary Tract/Genitourinar y Infection Take 1 tablet (500 mg total) by mouth 2 (two) times a day for 10 days 20 tablet 12/02/2021 12/04/2021 documented in this encounter Plan of Treatment Not on file documented as of this encounter Visit Diagnoses Diagnosis Acute cystitis without hematuria- Primary documented in this encounter Care Teams Skiagrapher Relationship Specialty Start Date End Date Hero Acevedo MD [facility] [facility] [address] Duncan SINGH [address] [place] [phone] PCP - General Cardiovascular Disease 11/23/17 3 documented as of this encounter
--- OUTSIDE RECORDS SUMMARY | 2024-03-04 10:36 | XMS_ITS | Encounter Summary ---
Author Organization [facility] Address [address] [place] [phone] Phone Care Team Providers Care Director Educational Radio Name Role Phone Hero Acevedo MD Primary Care Provider [phone] Reason for Referral * Consultation (Routine) - Closed Specialty Diagnoses / Procedures Referred By Contissa t Referred To Contact Orthopedic Surgery Diagnoses Degenerative arthritis of thumb, unspecified laterality Shruti Haley PA Phone: tel: fax: [facility] (All Locations) Referral ID Status Reason Start Date Expiration Date V isits Requested Visits Authorized [id number] Closed Specialty Services Required 05/01/2021 05/31/2022 1 1 Question Answer Please select the performing region: [facility] (All Locations) [[id number]] # of visits: 1 HBOOK ASSEMBLER Encounter Details Date Type Department Care Team (Late st Contact Info) Description 05/01/2021 Orders Only [address] [place] [address] Shruti Haley PA [address] [place] [address] Degenerative arthritis of thumb, unspecified laterality (Primary Dx) Social History Tobacco Use Types [...] on file 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 Gender Identity Not on file Sexual Orientation Not on file documented as of this encounter Plan of Treatment Scheduled Referrals Name Type Priority Associated Diagnoses Orde r Schedule Ambulatory referral to Orthopedic Hand Outpatient Referral Routine Degenerative arthritis of thumb, unspecified laterality Expected: 05/15/2021 (Approximate), Expires: 05/01/2022 documented as of this encounter Visit Diagnoses Diagnosis Degenerative arthritis of thumb, unspecified laterality- Primary documented in this encounter Care Teams Director Educational Radio Relationship Specialty Start Date End Date Hero Acevedo MD [facility] [address] Duncan SINGH [address] [place] [phone] PCP - General Cardiovascular Disease 11/23/17 3 documented as of this encounter
--- OUTSIDE RECORDS SUMMARY | 2024-03-04 10:36 | XMS_ITS | Encounter Summary ---
Author Organization [facility] Address [address] [facility] [address] [place] [address] Care Team Providers Care Insurance Underwriter Sales Name Role Phone Hero Acevedo MD Primary Care Provider [phone] Encounter Details Date Type Department Care Team (Late st Contact Info) Description 01/12/2019 Orders Only [facility] [address] [facility] [address], [place] [address] Khang Osullivan MD [address] [facility] [address] [place] [address] Social History Tobacco Use Types Packs/Day Years Used Date Smoking Tobacco: Never Smokeless Tobacco: Never Alcohol Use Standard Drinks/Week Comments Not Currently 0 (1 standard drink = 0.6 oz pur e alcohol) Sex and Gender Information Value Date Recorded Sex Assigned at Not on file 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 Gender Identity Not on file Sexual Orientation Not on file documented as of this encounter Plan of Treatment Not on file documented as of this encounter Procedures Procedure Name Priority Date/Time Associated Diagnosis Comments FLEXIBLE SIGMOIDOSCOPY Routine 01/12/2019 documented in this encounter Results * Flexible Sigmoidoscopy (01/12/2019) Anatomical Region Laterality Modality Other Khang Osullivan MD ENDOSCOPY PROCEDURES Final Resul t documented in this encounter Visit Diagnoses Not on filedocumented in this encounter Care Teams Insurance Underwriter Sales Relationship Specialty Start Date End Date Hero Acevedo MD [address] [place] [address] DR Duncan SINGH [address] [place] [address] PCP - General Cardiovascular Disease 11/23/17 3 documented as of this encounter
--- OUTSIDE RECORDS SUMMARY | 2024-03-04 10:36 | XMS_ITS | Encounter Summary ---
Author Organization [facility] Healthcare Address [address] [place] [address] Care Team Providers Care Lorry Weigher Name Role Phone Hero Acevedo MD Primary Care Provider [phone] Reason for Visit * Auth/Cert Specialty Diagnoses / Procedures Referred By Contac t Referred To Contact Diagnoses Personal history of colonic polyps Personal history of colonic polyps [Z86.010] Procedures PA COLONOSCOPY FLX DX W/COLLJ SPEC WHEN PFRMD COLONOSCOPY Referral ID Status Reason Start Date Expiration Date Visits Re quested Visits Authorized [id number] 1 1 Encounter Details Date Type Department Care Team (Late st Contact Info) Description 08/27/2020 12:30 PM CDT - 08/27/2020 1:00 PM CDT Surgery [facility] [address] [place] [address] Khang Osullivan MD [address] [facility] [address] [place] [address] COLON REMOVAL SNARE Surgery Details Date/Time Status Location OR Service Patient Class Case Class Case Type Trauma Case? 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 Gender Identity Not on file Sexual Orientation Not on file documented as of this encounter Last Filed Vital Signs Vital Sign Reading Time Taken Comments Blood Pressure 140/91 08/27/2020 12:22 PM CDT Pulse 60 08/27/2020 12:22 PM CDT Temperature 36.6 ??C (97.9 ??F) 08/27/2020 12:22 PM C DT Respiratory Rate 17 08/27/2020 12:22 PM CDT Oxygen Saturation 99% 08/27/2020 12:22 PM CDT Inhaled Oxygen Concentration - - [...] Take 4,000 Units by mouth daily Yes Fartun Khoury MD fluticasone propion-salmeteroL (Advair Diskus) 250-50 mcg/dose [...] capsule by mouth every other day Yes ProviderFartun MD UNABLE TO FIND Administer 1 each into affected nostril(s) 2 (two) times a week Coffee enema Yes Fartun Khoury MD venlafaxine XR (EFFEXOR-XR) 37.5 mg 24 hr capsule Take 1 capsule (37.5 mg total) by mouth daily. 11/29/17 08/27/20 Yes Hero Acevedo MD omega 1-pna-okg-fish-turmeric 417 mg-120 mg- 276 mg-600 mg capsule Take by mouth 08/27/20 Yes Fartun Khoury MD PARoxetine (PAXIL) 20 mg tablet 02/19/19 08/27/20 Yes Fartun Khoury MD FLUZONE QUAD [id number], PF, 60 mcg (15 mcg x 4)/0.5 [...] 08/27/2020 12:30 PM Admit Type: Outpatient Room: [facility] Date of : 1965 Instrument Name: -[id number] Gender: Male Note Status: Finalized Procedure: Colonoscopy [...] bowel preparation was evaluated using the BBPS ([place] Bowel Preparation Scale) with scores of: Right [...] gastric) 08/27/2020 1:04 PM CDT Narrative PATHOLOGY [facility] - 08/29/2020 7:50 AM CDT [address] ??[address] Tele: ?? Adilene Castellanos MD - Administrative Services Officerhunting guide PATHOLOGY REPORT Patient Name: ??DONELL BAKERVidhi Address: ??[address] [place] [address] Gender: ??M : ??1965 (Age: 54) Service: ??Gastro Location: ??[facility] ?? Hospital #: ??[id number] Patient Type: ??[facility] Accession #: ? [id number] Taken: ? 08/27/2020 Received ? 08/28/2020 Reported: ? 08/29/2020 Physician(s): ? Ho Bellamy M.D. DIAGNOSIS: Colon, cecum, polypectomy X2: ? [...] filtered and submitted entirely in cassette A1. [facility]/08/28/2020 11:53 ? [facility] MICROSCOPIC DESCRIPTION: Sections from the cecum polyp X2 show numerous fragments of tubular adenoma without high-grade dysplasia or malignancy. Clerical Data Follows A; [id number] REPORT IMAGES AND/OR SCANNED DOCUMENTS ONLY VIEWABLE IN PDF FORMAT The immunohistochemical test(s) cited in this report, if any, was developed and its performance characteristics determined by [facility] Pathology Department. ??It has not been cleared or approved by the U.S. Food and Drug Administration. ??The FDA has determined that such clearance or approval is not necessary. ??This test is used for clinical purposes. ??It should not be regarded as investigational or for research. ??[facility] is certified under the Clinical Laboratory Improvement Amendments of 1988 (CLIA) as qualified to perform high complexity testing. ??Immunostains were performed on formalin-fixed paraffin embedded tissue using a polymer diaminobenzidine chromogen detection system. Antibodies used may include clone SP1 (rabbit monoclonal, estrogen receptor), clone 1E2 (rabbit monoclonal progesterone receptor), Ki-67 (rabbit monoclonal, 30-9), and [id number] (rabbit polyclonal, c-kit). us Khang Osullivan MD LAB PATHOLOGY ORDERABLES Final R esult PATHOLOGY [facility] Laboratory Receiving [address] [place] [address] * COLONOSCOPY (08/27/2020 12:30 PM CDT) Anatomical Region Laterality Modality Other Narrative Procedure Note Khang Osullivan MD - 08/27/2020 12:30 PM CDT ENDOSCOPY LAB Patient Name: Donell Baker Procedure Date: 08/27/2020 12:30 PM Admit Type: Outpatient Room: [facility] Date of : 1965 Instrument Name: [id number] [...] 08/27/2020 12:30 PM Scope In: Scope Out: us Khang Osullivan MD ENDOSCOPY PROCEDURES Final Resul t documented in this encounter Visit Diagnoses Diagnosis Personal history of colonic polyps- Primary Personal history of colonic polyps documented in this encounter Admitting Diagnoses Diagnosis [...] Start Date End Da te FLUZONE QUAD [id number], PF, 60 mcg (15 mcg x 4)/0.5 mL syringe TO BE ADMINISTERED BY IMMUNIZING PHARMACIST Therapy completed 01/14/2018 08/27/2020 PARoxetine (PAXIL) 20 mg tablet Dose adjustment 02/19/2019 08/27/2020 polyethylene glycol-electrolytes (NULYTELY) 420 gram solutionIndications:B owel Evacuation MIX AND DRINK UTD Therapy completed 12/07/2017 08/27/2020 omega 1-ffo-kll-fish-turmer ic 417 mg-120 mg- 276 mg-600 mg [...] by mouth every other day 2 omega 6-diu-maj-fish-t urmeric 417 mg-120 mg- 276 mg-600 mg [...] infusion 30 mL/hr, intravenous, Continuous, Starting on 08/27/20 at 1245, For 1 hour, Pre-Procedure (GI), If anesthesia prefers 1245 (Due) sodium chloride 0.9% infusion 125 mL/hr, intravenous, Continuous, Starting on 08/27/20 at 1400, Recovery (GI) 1400 (Due) PRN Medication Order 08/25/2020 08/26/2020 08/27/2020 ondansetron (ZOFRAN) injection 4 mg 4 mg, intravenous, Administer over 2 Minutes, Every 30 min PRN, nausea, vomiting, Starting on 08/27/20 at 1318, For 2 doses, Recovery (GI), Indications: Nausea and Vomiting documented in this encounter Orders Medications Ordered That Zach ht Not Have Been Administered Count Last Ordered Date First Ordered Date Lactated Ringer's (LR) infusion 1 ondansetron (ZOFRAN) injection 4 mg 1 08/27 sodium chloride 0.9% infusion 2 08/27/2020 Discharge Count Last Ordered Date First Orde red Date DISCHARGE PATIENT 1 08/27/2020 documented in this encounter Care Teams Lorry Weigher Relationship Specialty Start Date End Date Hero Acevedo MD [address] [facility] [address] Duncan SINGH [address] [place] [address] PCP - General Cardiovascular Disease 11/23/17 3 documented as of this encounter
--- OUTSIDE RECORDS SUMMARY | 2024-03-04 10:36 | XMS_ITS | Encounter Summary ---
Author Organization [facility] Address [address] [place] [phone] Phone Care Team Providers Care Dog Hair Clipper Name Role Phone Hero Acevedo MD Primary Care Provider [phone] Encounter Details Date Type Department Care Team (Late st Contact Info) Description 03/20/[address] [address] Hero Acevedo MD [address] [place] [address] Social History Tobacco Use Types Packs/Day Years Used Date Smoking Tobacco: Never Smokeless Tobacco: Never Alcohol Use Standard Drinks/Week Comments Not Currently 0 (1 standard drink = 0.6 oz pur e alcohol) Sex and Gender Information Value Date Recorded Sex Assigned at Not on file 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 Gender Identity Not on file Sexual Orientation Not on file documented as of this encounter Miscellaneous Notes * Telephone Encounter - Regine Marroquin - 03/21/2019 2:26 PM CST informatin mailed to patient ENGINEER * Telephone Encounter - Regine Marroquin - 03/20/2019 2:11 PM CST [phone] fax number [place] and is required to have a prescription for his medication along with a note expaling why he needs these medications ENGINEER documented in this encounter Plan of Treatment Not on file documented as of this encounter Visit Diagnoses Not on filedocumented in this encounter Care Teams Dog Hair Clipper Relationship Specialty Start Date End Date Hero Acevedo MD [facility] [address] Duncan SINGH [address] [place] [address] PCP - General Cardiovascular Disease 11/23/17 3 documented as of this encounter
--- OUTSIDE RECORDS SUMMARY | 2024-03-04 10:36 | XMS_ITS | Encounter Summary ---
Author Organization [facility] Address [address] [place] [phone] Phone Care Team Providers Care Cargo Router Name Role Phone Hero Acevedo MD Primary Care Provider [phone] Encounter Details Date Type Department Care Team (Late st Contact Info) Description 03/20/2019 Orders Only [address] [address] Hero Acevedo MD [address] [place] [address] Social History Tobacco Use Types Packs/Day Years Used Date Smoking Tobacco: Never Smokeless Tobacco: Never Alcohol Use Standard Drinks/Week Comments Not Currently 0 (1 standard drink = 0.6 oz pur e alcohol) Sex and Gender Information Value Date Recorded Sex Assigned at Not on file 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 Do not swallow. 1 each 3 03/20/2019 0 documented in this encounter Plan of Treatment Not on file documented as of this encounter Visit Diagnoses Not on filedocumented in this encounter Discontinued Medications Medication Sig Discontinue Reason Start Date End Da te fluticasone propion-salmeterol (ADVAIR DISKUS) 250-50 mcg/dose diskus inhalerIndications:Radha ntenance Therapy for Asthma Inhale 1 puff daily Rinse mouth with water after use to reduce aftertaste and incidence of candidiasis. Do not swallow. Reorder 02/14/2019 03/20/2019 documented as of this encounter Historical Medications * This list may reflect changes made after this encounter. Medication Sig Dispense Quantity Refills Last Filled Start D ate End Date PARoxetine (PAXIL) 20 mg tablet 02/19/2019 08/27/2020 added in this encounter Care Teams Cargo Router Relationship Specialty Start Date End Date Hero Acevedo MD [address] [place] [address] DR Duncan SINGH [address] [place] [address] PCP - General Cardiovascular Disease 11/23/17 3 documented as of this encounter
--- OUTSIDE RECORDS SUMMARY | 2024-03-04 10:36 | XMS_ITS | Encounter Summary ---
Author Organization [facility] Address [address] [place] [phone] Phone Care Team Providers Care Monomer Recovery Operator Name Role Phone Hero Acevedo MD Primary Care Provider [phone] Encounter Details Date Type Department Care Team (Late st Contact Info) Description 02/14/2019 Orders Only [address] [address] Hero Acevedo MD [address] [place] [address] Social History Tobacco Use Types Packs/Day Years Used Date Smoking Tobacco: Never Smokeless Tobacco: Never Alcohol Use Standard Drinks/Week Comments Not Currently 0 (1 standard drink = 0.6 oz pur e alcohol) Sex and Gender Information Value Date Recorded Sex Assigned at Not on file 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 Do not swallow. 1 each 3 02/14/2019 0 documented in this encounter Plan of Treatment Not on file documented as of this encounter Visit Diagnoses Not on filedocumented in this encounter Discontinued Medications Medication Sig Discontinue Reason Start Date End Da te fluticasone-salmeterol (ADVAIR DISKUS) 250-50 mcg/dose diskus inhaler Inhale 1 puff daily. Rinse mouth with water after use to reduce aftertaste and incidence of candidiasis. Do not swallow. 11/29/2017 02/14/2019 fluticasone-salmeterol (ADVAIR DISKUS) 250-50 mcg/dose diskus inhalerIndications:Radha ntenance Therapy for Asthma Inhale 1 puff daily. Rinse mouth with water after use to reduce aftertaste and incidence of candidiasis. Do not swallow. Reorder 11/29/2017 02/14/2019 documented as of this encounter Care Teams Monomer Recovery Operator Relationship Specialty Start Date End Date Hero Acevedo MD [facility] [address] Song [address] [address] PCP - General Cardiovascular Disease 11/23/17 3 documented as of this encounter
--- OUTSIDE RECORDS SUMMARY | 2024-03-04 10:36 | XMS_ITS | Encounter Summary ---
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 PT needs PCP to call him. Pt number [phone] documented in this encounter Plan of Treatment Not on file documented as of this encounter Visit Diagnoses Not on filedocumented in this encounter Care Teams Forgesmith Relationship Specialty Start Date End Date Hero Acevedo MD [facility] [address] Duncan SINGH [address] [place] [address] PCP - General Cardiovascular Disease 11/23/17 3 documented as of this encounter
--- OUTSIDE RECORDS SUMMARY | 2024-03-04 10:36 | XMS_ITS | Encounter Summary ---
Author Organization [facility] Address [address] [place] [phone] Phone Care Team Providers Care Backer Up Name Role Phone Hero Acevedo MD Primary Care Provider [phone] Encounter Details Date Type Department Care Team (Late st Contact Info) Description 05/30/2021 10:15 AM CDT Office Visit [address] [address] Hero Acevedo MD [address] [place] [address] Mild anemia (Primary Dx); Mild renal insufficiency; Rheumatoid factor positive Social History Tobacco Use Types Packs/Day Years [...] on file 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 Gender Identity Not on file Sexual Orientation Not on file documented as of this encounter Last Filed Vital Signs Vital Sign Reading Time Taken Comments Blood Pressure 138/88 05/30/2021 10:26 AM CDT Pulse 68 05/30/2021 10:26 AM CDT Temperature 36.7 ??C (98 ??F) 05/30/2021 10:26 AM CDT Respiratory Rate - - Oxygen Saturation 98% 05/30/2021 10:26 AM CDT Inhaled Oxygen Concentration - - Weight 90.3 kg (199 lb 1.6 oz) 05/30/2021 10:26 AM CDT Height - - Body Mass Index 26.27 05/28/2021 1:05 PM CDT documented in this encounter Progress Notes * Hero Acevedo MD - 05/30/2021 10:15 AM CDT 55-year-old male seen for follow-up of arthralgias. He was having severe pain in his wrists that isnow completely resolved. His rheumatoid factor anti CCP is markedly positive and he has a follow-upwith Rheumatology. Has dry skin and is also seeing a heel sorter. Blood pressure is 138/88 chest is clear cardiac exam no murmur abdomen nontender has significant scaliness over his hands has full range of motion of his wrist no inflammatory changes of the wrist her hands. Had benign colon polypsremoved last year. He has been on green tea iron and vitamin-C will check his CBC. Creatinine 1.6 on last test and that is being recheck at [facility]. Patient will be notified of any unusual findings will have follow-up with dermatology and rheumatology for above-mentioned problems. 35 minutes of time was spent reviewing records interval history physical examination documented in this encounter Plan of Treatment Not on file documented as of this encounter Procedures Procedure Name Priority Date/Time Associated Diagnosis Comments CBC WITH AUTO DIFFERENTIAL Routine 05/30/2021 2:16 PM CDT Mild anemia BASIC METABOLIC PANEL Routine 05/30/2021 2:16 PM CDT Mild renal insufficiency documented in this encounter Results * (ABNORMAL) Basic metabolic panel (05/30/2021 2:16 PM CDT) Pathologist [facility] Glucose 77 65 - 99 mg/dL [facility] Comment: ? Fasting reference interval BUN 30(H) 7 - 25 mg/dL [facility] Creatinine 1.66(H) 0.70 - 1.33 mg/dL [facility] Comment: For patients >49 years of age, the reference limit for Creatinine is approximately 13% higher for people identified as -Ugandan. eGFR NON-AFR. DUTCH 45(L) > OR = 60 mL/min/1. 73m2 [facility] EGFR 52(L) > OR = 60 mL/min/1. 73m2 [facility] BUN/creat ratio 18 6 - 22 (calc) [facility] Sodium 137 135 - 146 mmol/L [facility] Potassium, pl 4.6 3.5 - 5.3 mmol/L [facility] Chloride 102 98 - 110 mmol/L [facility] CO2 27 20 - 32 mmol/L [facility] Calcium 9.3 8.6 - 10.3 mg/dL [facility] Blood specimen (specimen) 05/30/2021 2:16 PM CDT 05/30/2021 2:17 PM CDT Hero Acevedo MD LAB BLOOD ORDERABLES Final R esult [facility] [address] [place] [address] * (ABNORMAL) CBC with auto differential (05/30/2021 2:16 PM CDT) Pathologist [facility] WBC 4.7 3.8 - 10.8 Thousand/u L [facility] RBC, POC 4.06(L) 4.20 - 5.80 Million/uL [facility] Hgb 12.1(L) 13.2 - 17.1 g/dL [facility] Hct 36.2(L) 38.5 - 50.0 % [facility] MCV 89.2 80.0 - 100.0 fL [facility] MCH 29.8 27.0 - 33.0 pg [facility] MCHC 33.4 32.0 - 36.0 g/dL [facility] Rdw 12.8 11.0 - 15.0 % [facility] Platelets 201 140 - 400 Thousand/u L [facility] MPV 11.0 7.5 - 12.5 fL [facility] Neutrophils, abs 2,735 1,500 - 7,800 cells/uL [facility] Lymphocytes, abs 1,401 850 - 3,900 cells/uL [facility] Monocyte abs 390 200 - 950 cells/uL [facility] Eosinophils, abs 122 15 - 500 cells/uL [facility] Basophils, abs 52 0 - 200 cells/uL [facility] Neutrophils 58.2 % [facility] Lymphocyte pct 29.8 % [facility] Monocytes 8.3 % [facility] Eosinophils 2.6 % [facility] Basophils 1.1 % [facility] Blood specimen (specimen) 05/30/2021 2:16 PM CDT 05/30/2021 2:17 PM CDT Hero Acevedo MD LAB BLOOD ORDERABLES Final R esult [facility] [address] [place] [address] documented in this encounter Visit Diagnoses Diagnosis Mild anemia- Primary Mild renal insufficiency Rheumatoid factor positive Other and unspecified nonspecific immunological findings documented in this encounter Care Teams Backer Up Relationship Specialty Start Date End Date Hero Acevedo MD [facility] [address] Duncan SINGH [address] [place] [address] PCP - General Cardiovascular Disease 11/23/17 3 documented as of this encounter
--- OUTSIDE RECORDS SUMMARY | 2024-03-04 10:36 | XMS_ITS | Encounter Summary ---
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 Fasting reference interval BUN 24 7 - 25 mg/dL [facility] Creatinine 2.51(H) 0.70 - 1.30 mg/dL [facility] [...] 146 mmol/L [facility] Potassium, pl 6.4(HH) 3.5 - 5.3 mmol/L [facility] Comment: Red blood cells were present in the sample upon receipt in the laboratory. The test(s) ordered were performed. The presence of red blood cells has been known to affect the following analytes: potassium, glucose, inorganic phosphorus, lactate dehydrogenase and iron. Verified by repeat analysis. Chloride 108 98 - 110 mmol/L [facility] CO2 25 20 - 32 mmol/L [facility] Calcium 9.8 8.6 - 10.3 mg/dL [facility] Blood 01/17/2022 11:2 5 AM CDT 01/17/2022 11:26 AM CDT Narrative [facility] - 01/19/2022 3:21 PM DINNER COOK FASTING:YES FASTING: YES Hero Acevedo MD LAB BLOOD ORDERABLES Final R esult [facility] [address] [place] [address] documented in this encounter Visit Diagnoses Diagnosis Elevated serum creatinine- Primary Other nonspecific findings on examination of blood documented in this encounter Care Teams Otr Company Driver Relationship Specialty Start Date End Date Hero Acevedo MD [address] [facility] [address] Duncan SINGH [address] [place] [address] PCP - General Cardiovascular Disease 11/23/17 3 documented as of this encounter
--- OUTSIDE RECORDS SUMMARY | 2024-03-04 10:36 | XMS_ITS | Encounter Summary ---
Author Organization [facility] Address [address] [place] [phone] Phone Care Team Providers Care Senior Analyst Developer Name Role Phone Hero Acevedo MD Primary Care Provider [phone] Encounter Details Date Type Department Care Team (Late st Contact Info) Description 03/20/2019 Orders Only [address] [address] Hero Acevedo MD [address] [place] [address] Moderate persistent asthma without complication Social History Tobacco Use Types Packs/Day Years Used Date Smoking Tobacco: Never Smokeless Tobacco: Never Alcohol Use Standard Drinks/Week Comments Not Currently 0 (1 standard drink = 0.6 oz pur e alcohol) Sex and Gender Information Value Date Recorded Sex Assigned at Not on file 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 Gender Identity Not on file Sexual Orientation Not on file documented as of this encounter Ordered Prescriptions Prescription Sig Dispense Quantity Refills Last Filled Start Date End Date albuterol HFA (ProAir HFA) 90 mcg/actuation inhalerIndications :Bronchospasm Prevention Inhale 2 puffs every 4 (four) hours as needed for wheezing or shortness of breath 8.5 g 3 03/20/2019 0 documented in this encounter Plan of Treatment Not on file documented as of this encounter Visit Diagnoses Diagnosis Moderate persistent asthma without complication documented in this encounter Discontinued Medications Medication Sig Discontinue Reason Start Date End Da te albuterol HFA (PROAIR HFA) 90 mcg/actuation inhalerIndications:Bron chospasm Prevention Inhale 2 puffs every 4 (four) hours as needed for wheezing or shortness of breath Reorder 09/19/2018 03/20/2019 documented as of this encounter Care Teams Senior Analyst Developer Relationship Specialty Start Date End Date Hero Acevedo MD [facility] [address] Duncan SINGH [address] [place] [address] PCP - General Cardiovascular Disease 11/23/17 3 documented as of this encounter
--- OUTSIDE RECORDS SUMMARY | 2024-03-04 10:36 | XMS_ITS | Encounter Summary ---
Author Organization [facility] Address [address] [facility] [address] [place] [address] Phone Care Team Providers Care Engrosser Name Role Phone Hero Acevedo MD Primary Care Provider [phone] Reason for Referral * Diagnostic Imaging (Routine) - Closed Specialty Diagnoses / Procedures Referred By Contac t Referred To Contact Diagnoses Arthralgia, unspecified joint Procedures [place]R Fore[place] [address] [place] [address] Phone: tel: fax: [facility] [address] [place] [address] Referral ID Status Reason Start Date Expiration Date Visits Re quested Visits Authorized [id number] Closed 06/04/2021 07/04/2022 1 1 * Diagnostic Imaging (Routine) - Closed Specialty Diagnoses / Procedures Referred By Contac t Referred To Contact Diagnoses Arthralgia, unspecified joint Procedures XR Forearm Left 1 View Deepa Conner MD [address] [address] Phone: tel: fax: [address] [phone] Referral ID Status Reason Start Date Expiration Date Visits Re quested Visits Authorized [id number] Closed 06/04/2021 07/04/2022 1 1 * Diagnostic Imaging (Routine) - Closed Specialty Diagnoses / Procedures Referred By Contac t Referred To Contact Diagnoses Arthralgia, unspecified joint Procedures XR Wrist Left 3 or More Views Deepa Conner MD [address] [place] [address] [place] [address] Phone: tel: fax: [address] [phone] Referral ID Status Reason Start Date Expiration Date Visits Re quested Visits Authorized [id number] Closed 06/04/2021 07/04/2022 1 1 * Diagnostic Imaging (Routine) - Closed Specialty Diagnoses / Procedures Referred By Contac t Referred To Contact Diagnoses Arthralgia, unspecified joint Procedures XR Hand Right 3 or More Views Deepa Conner MD [address] [place] [address] [place] [address] Phone: tel: fax: [address] [phone] Referral ID Status Reason Start Date Expiration Date Visits Re quested Visits Authorized [id number] Closed 06/04/2021 07/04/2022 1 1 * Diagnostic Imaging (Routine) - Closed Specialty Diagnoses / Procedures Referred By Contac t Referred To Contact Diagnoses Arthralgia, unspecified joint Procedures XR Hand Left 3 or More Views Deepa Conner MD [address] [address] Phone: tel: fax: [address] [phone] Referral ID Status Reason Start Date Expiration Date Visits Re quested Visits Authorized [id number] Closed 06/04/2021 07/04/2022 1 1 * Diagnostic Imaging (Routine) - Closed Specialty Diagnoses / Procedures Referred By Contac t Referred To Contact Diagnoses Arthralgia, unspecified joint Procedures XR Wrist Right 3 or More Views Deepa Conner MD [address] [address] Phone: tel: fax: [address] [phone] Referral ID Status Reason Start Date Expiration Date Visits Re quested Visits Authorized [id number] Closed 06/04/2021 07/04/2022 1 1 Reason for Visit * Consultation (Routine) - Closed Specialty Diagnoses / Procedures Referred By Contac t Referred To Contact Rheumatology Diagnoses Arthralgia, unspecified joint Shruti Haley PA Phone: tel: fax: [facility] (All Locations) Referral ID Status Reason Start Date Expiration Date V isits Requested Visits Authorized [id number] Closed Specialty Services Required 04/30/2021 3 3 Encounter Details Date Type Department Care Team (Late st Contact Info) Description 06/04/2021 11:00 AM CDT Office Visit [facility] Rheumatology [address] [facility] 5th [place] [address] [place] [phone] Leana Jack MD [address] [place] [address] Arthralgia, unspecified joint Social History Tobacco Use [...] on file 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 Gender Identity Not on file Sexual Orientation Not on file documented as of this encounter Last Filed Vital Signs Vital Sign Reading Time Taken Comments Blood Pressure 159/87 06/04/2021 10:49 AM CDT Pulse 75 06/04/2021 10:49 AM CDT Temperature 36.7 ??C (98 ??F) 06/04/2021 10: 49 AM CDT Respiratory Rate - - Oxygen Saturation - - Inhaled Oxygen Concentration - - Weight 91.1 kg (200 lb 12.8 oz) 022 10:49 AM CDT Height 185.4 cm (6' 1 ) 06/04/2021 10:4 9 AM CDT Body Mass Index 26.49 06/04/2021 10:49 AM CDT documented in this encounter Progress Notes * Deepa Conner MD - 06/04/2021 11:00 AM CDT Images from the original note were not included. [facility] Division of Rheumatology This consult was requested by the doctor listed below for an opinion regarding the chief complaint listed below. Referring Physician: Shruti Haley PA [address] [facility] [address] Duncan SINGH [address] [place] [address] Reason for the referral: Arthralgia SUBJECTIVE: CC: wrists pain History of Present Illness: A pleasant 55 y.o. male with PMHx significant for anxiety is evaluated in the Rheumatology Clinic for the above. He has years of diffuse joints and muscles pain. Then, he had 6 weeks of b/l wrists pain extending to the elbows, which prompted him to see PCP 1 month ago, who ordered labs which came back positive for CCP (>300). The wrists pain is intermittent on distal forearm, severe, and worse at night (with no paraesthesia), and with no acute swelling (had swelling since the ), with no warmth. He tried ibuprofen 400 mg up to the maximum which did not help. He finished Medrol pack which did not help at all the diffuse pain. Of note, the wrists pain resolved before starting the prednisone. He has generalized muscle stiffness mainly in neck and shoulders with no prolonged morning stiffness or swelling in joints. He has normal muscle strength. He also has fatigue, and chronic hands skin changes since He denied ocular inflammation features, chills, N/V/D, dry eyes, dry mouth, or Raynaud's Labs reviewed: ESR 29, CCP Ab >300 negative THERESE, CRP, RF B/l wrist XR 04/2021: Severe bilateral thumb basal joint osteoarthritis. No erosions ROS: All other systems negative PHx: (+) Asthma, (+) Chronic Sinusitis, (-) Psoriasis, [...] Stillbirths Mother FHx: (-) Autoimmune disease SocHx: Social History Tobacco Use ??? Smoking status: [...] [Fluoxetine] Unknown OBJECTIVE: Physical Examination: Vitals: BP 159/87 Pulse 75 Temp 36.7 ??C (98 ??F) Ht 185.4 cm (6' 1 ) Wt 91.1 kg (200 lb 12.8 oz) BMI 26.49 kg/m?? General: Alert, Cooperative, No distress MSK B/l knee with crepitations with ROM, Rt forearm with mild non tender swelling No synovitis in the hands, wrists, knees, elbows or ankles TRIM MOUNTER Strength is 5/5 in proximal muscles in upper and lower extremities. Skin: (dry hands and hypopigmentation ) Rash , (-) Nodules HEENT (-) Scleral injection, (-) Oral ulcers, intact EOM Lungs: Clear to auscultation bilaterally Heart: Regular rate and rhythm, S1, S2 normal Abdomen: Soft without mass, Non-tender Investigations: Labs: Lab Results Component Value Date WBC 4.7 05/30/2021 HGB 12.1 (L) 05/30/2021 HCT 36.2 (L) 05/30/2021 MCV 89.2 05/30/2021 LABPLAT 201 05/30/2021 Lab Results Component Value Date AST 22 04/30/2021 ALT 23 04/30/2021 CREATININE 1.66 (H) 05/30/2021 Urine studies: No components found for: ZWK066, No components found for: UA, LASTURINETOX Lipid panel: Lab Results Component Value Date CHOL 165 08/06/2020 HDL 96 08/06/2020 TRIG 43 08/06/2020 CHOLHDL 1.7 08/06/2020 Lab Results Component Value Date SEDRATE 29 (H) 04/30/2021 CRP 4.2 04/30/2021 ASSESSMENT/PLAN: He has diffuse muscle and joints pain since , and only had 1 episode of b/l wrists pain that resolved without steroids and did not sound inflammatory, and is located over distal forearms where there is a palpated swelling. Also, today, has no clinical features of inflammatory arthritis with minimally elevated ESR and normal CRP. These features do not suggest rheumatoid arthritis. Nonetheless, will check b/l hands and wrists and forearms (swelling in the Rt forearm) XR, and if it shows erosions will diagnose RA and start treatment with HCQ with ophthalmology referral. If the XR are negative, then the positive Anti CCP would indicate pre-clinical RA, and in that case will monitor off medications with regular visits to monitor for development of RA -Return to clinic: 3 months Deepa Conner M.D Rheumatology Fellow Cosigned by Leana Jack MD at 06/06/2021 2:14 PM CDT Associated attestation - Leana Jack MD - 06/06/2021 2:14 PM CDT I have seen and examined the patient. I agree with the findings and plan of care as documented in the resident/fellow's note. My total encounter time on 06/04/2021 was 60 minutes which was spent in the activities documented in the note. This includes time spent prior to the visit and after the visitin direct care of the patient. This time does not include time spent in any separately reportable services. documented in this encounter Plan of Treatment Not on file documented as of this encounter Procedures Procedure Name Priority Date/Time Associated Diagnosis Comments XR HAND RIGHT 3 OR MORE VIEWS Schedule Routine, Read Routine (OP Routine) 06/04/2021 12:26 PM CDT Arthralgia, unspecified joint XR HAND LEFT 3 OR MORE VIEWS Schedule Routine, Read Routine (OP Routine) 06/04/2021 12:26 PM CDT Arthralgia, unspecified joint XR WRIST RIGHT 3 OR MORE VIEWS Schedule Routine, Read Routine (OP Routine) 06/04/2021 12:26 PM CDT Arthralgia, unspecified joint XR WRIST LEFT 3 OR MORE VIEWS Schedule Routine, Read Routine (OP Routine) 06/04/2021 12:26 PM CDT Arthralgia, unspecified joint documented in this encounter Results * XR Forearm Right 1 View (06/04/2021 12:26 PM CDT) Anatomical Region Laterality Modality Forearm Right Computed Radiogr aphy 06/04/2021 12:4 5 PM CDT Impressions 06/04/2021 12:45 PM CDT 1. ??Multifocal osteoarthritis of both hands and wrists, most severe at the bilateral thumb carpometacarpal joints. 2. ??Unchanged, nonspecific lucency in the left triquetrum may represent a cyst or erosion. Electronically signed by: Kathya Teixeira MD Narrative 06/04/2021 12:45 PM CDT EXAMINATION: 1. ??XR FOREARM LEFT 1 VIEW 2. ??XR WRIST RIGHT 3 OR MORE VIEWS 3. ??XR HAND LEFT 3 OR MORE VIEWS 4. ??XR HAND RIGHT 3 OR MORE VIEWS 5. ??XR WRIST LEFT 3 OR MORE VIEWS 6. ??XR FOREARM RIGHT 1 VIEW HISTORY: ??Rheumatoid arthritis FINDINGS: 7 radiographs of the left [...] of the dorsal aspect of both wrists. Procedure Note Vonda Teixeira MD - 06/04/2021 EXAMINATION: 1. XR FOREARM LEFT 1 VIEW 2. [...] triquetrum may represent a cyst or erosion. Electronically signed by: Kathya Teixeira MD us Deepa Reyescyn Conner MD IMG XR PROCEDURES F inal Result * XR Forearm Left 1 View (06/04/2021 12:26 PM CDT) Anatomical Region Laterality Modality Forearm Left Computed Radiogr aphy 06/04/2021 12:4 5 PM CDT Impressions 06/04/2021 12:45 PM CDT 1. ??Multifocal osteoarthritis of both hands and wrists, most severe at the bilateral thumb carpometacarpal joints. 2. ??Unchanged, nonspecific lucency in the left triquetrum may represent a cyst or erosion. Electronically signed by: Kathya Teixeira MD Narrative 06/04/2021 12:45 PM CDT EXAMINATION: 1. ??XR FOREARM LEFT 1 VIEW 2. ??XR WRIST RIGHT 3 OR MORE VIEWS 3. ??XR HAND LEFT 3 OR MORE VIEWS 4. ??XR HAND RIGHT 3 OR MORE VIEWS 5. ??XR WRIST LEFT 3 OR MORE VIEWS 6. ??XR FOREARM RIGHT 1 VIEW HISTORY: ??Rheumatoid arthritis FINDINGS: 7 radiographs of the left [...] of the dorsal aspect of both wrists. Procedure Note Vonda Teixeira MD - 06/04/2021 EXAMINATION: 1. XR FOREARM LEFT 1 VIEW 2. [...] triquetrum may represent a cyst or erosion. Electronically signed by: Kathya Teixeira MD Deepa Conner MD IMG XR PROCEDURES F inal Result * XR Wrist Left 3 or More Views (06/04/2021 12:26 PM CDT) Anatomical Region Laterality Modality Upper Extremities, Wrist Left Compute d Radiography 06/04/2021 12:4 5 PM CDT Impressions 06/04/2021 12:45 PM CDT 1. ??Multifocal osteoarthritis of both hands and wrists, most severe at the bilateral thumb carpometacarpal joints. 2. ??Unchanged, nonspecific lucency in the left triquetrum may represent a cyst or erosion. Electronically signed by: Kathya Teixeira MD Narrative 06/04/2021 12:45 PM CDT EXAMINATION: 1. ??XR FOREARM LEFT 1 VIEW 2. ??XR WRIST RIGHT 3 OR MORE VIEWS 3. ??XR HAND LEFT 3 OR MORE VIEWS 4. ??XR HAND RIGHT 3 OR MORE VIEWS 5. ??XR WRIST LEFT 3 OR MORE VIEWS 6. ??XR FOREARM RIGHT 1 VIEW HISTORY: ??Rheumatoid arthritis FINDINGS: 7 radiographs of the left [...] of the dorsal aspect of both wrists. Procedure Note Vonda Teixeira MD - 06/04/2021 EXAMINATION: 1. XR FOREARM LEFT 1 VIEW 2. [...] triquetrum may represent a cyst or erosion. Electronically signed by: Kathya Teixeira MD Deepa Conner MD IMG XR PROCEDURES F inal Result * XR Hand Right 3 or More Views (06/04/2021 12:26 PM CDT) Anatomical Region Laterality Modality Upper Extremities, Hand Right Computed Radiography 06/04/2021 12:4 5 PM CDT Impressions 06/04/2021 12:45 PM CDT 1. ??Multifocal osteoarthritis of both hands and wrists, most severe at the bilateral thumb carpometacarpal joints. 2. ??Unchanged, nonspecific lucency in the left triquetrum may represent a cyst or erosion. Electronically signed by: Kathya Teixeira MD Narrative 06/04/2021 12:45 PM CDT EXAMINATION: 1. ??XR FOREARM LEFT 1 VIEW 2. ??XR WRIST RIGHT 3 OR MORE VIEWS 3. ??XR HAND LEFT 3 OR MORE VIEWS 4. ??XR HAND RIGHT 3 OR MORE VIEWS 5. ??XR WRIST LEFT 3 OR MORE VIEWS 6. ??XR FOREARM RIGHT 1 VIEW HISTORY: ??Rheumatoid arthritis FINDINGS: 7 radiographs of the left [...] of the dorsal aspect of both wrists. Procedure Note Vonda Teixeira MD - 06/04/2021 EXAMINATION: 1. XR FOREARM LEFT 1 VIEW 2. [...] triquetrum may represent a cyst or erosion. Electronically signed by: Kathya Teixeira MD Deepa Jon Misa Conner MD IMG XR PROCEDURES F inal Result * XR Hand Left 3 or More Views (06/04/2021 12:26 PM CDT) Anatomical Region Laterality Modality Upper Extremities, Hand Left Computed Radiography 06/04/2021 12:4 5 PM CDT Impressions 06/04/2021 12:45 PM CDT 1. ??Multifocal osteoarthritis of both hands and wrists, most severe at the bilateral thumb carpometacarpal joints. 2. ??Unchanged, nonspecific lucency in the left triquetrum may represent a cyst or erosion. Electronically signed by: Kathya Teixeira MD Narrative 06/04/2021 12:45 PM CDT EXAMINATION: 1. ??XR FOREARM LEFT 1 VIEW 2. ??XR WRIST RIGHT 3 OR MORE VIEWS 3. ??XR HAND LEFT 3 OR MORE VIEWS 4. ??XR HAND RIGHT 3 OR MORE VIEWS 5. ??XR WRIST LEFT 3 OR MORE VIEWS 6. ??XR FOREARM RIGHT 1 VIEW HISTORY: ??Rheumatoid arthritis FINDINGS: 7 radiographs of the left [...] of the dorsal aspect of both wrists. Procedure Note Vonda Teixeira MD - 06/04/2021 EXAMINATION: 1. XR FOREARM LEFT 1 VIEW 2. [...] triquetrum may represent a cyst or erosion. Electronically signed by: Kathya Teixeira MD Deepa Conner MD IMG XR PROCEDURES F inal Result * XR Wrist Right 3 or More Views (06/04/2021 12:26 PM CDT) Anatomical Region Laterality Modality Upper Extremities, Wrist Right Compute d Radiography 06/04/2021 12:4 5 PM CDT Impressions 06/04/2021 12:45 PM CDT 1. ??Multifocal osteoarthritis of both hands and wrists, most severe at the bilateral thumb carpometacarpal joints. 2. ??Unchanged, nonspecific lucency in the left triquetrum may represent a cyst or erosion. Electronically signed by: Kathya Teixeira MD Narrative 06/04/2021 12:45 PM CDT EXAMINATION: 1. ??XR FOREARM LEFT 1 VIEW 2. ??XR WRIST RIGHT 3 OR MORE VIEWS 3. ??XR HAND LEFT 3 OR MORE VIEWS 4. ??XR HAND RIGHT 3 OR MORE VIEWS 5. ??XR WRIST LEFT 3 OR MORE VIEWS 6. ??XR FOREARM RIGHT 1 VIEW HISTORY: ??Rheumatoid arthritis FINDINGS: 7 radiographs of the left [...] of the dorsal aspect of both wrists. Procedure Note Vonda Teixeira MD - 06/04/2021 EXAMINATION: 1. XR FOREARM LEFT 1 VIEW 2. [...] triquetrum may represent a cyst or erosion. Electronically signed by: Kathya Teixeira MD Deepa Conner MD IMG XR PROCEDURES F inal Result documented in this encounter Visit Diagnoses Diagnosis Arthralgia, unspecified joint Arthralgia, unspecified joint documented in this encounter Historical Medications * This list may reflect changes made after this encounter. iron,carbonyl-vit pena C 65 mg iron- 125 mg tablet,delayed release (/EC) Take by mouth 11/25/2021 added in this encounter Orders Outpatient Referral Count Last Ordered Date Fir st Ordered Date AMB REFERRAL TO RHEUMATOLOGY 1 06/04/2021 documented in this encounter Care Teams Engrosser Relationship Specialty Start Date End Date Hero Acevedo MD [facility] [address] Duncan SINGH [address] [place] [address] PCP - General Cardiovascular Disease 11/23/17 3 documented as of this encounter
--- OUTSIDE RECORDS SUMMARY | 2024-03-04 10:36 | XMS_ITS | Encounter Summary ---
Author Organization [facility] Address [address] [place] [phone] Phone Care Team Providers Care Top Trimmer Name Role Phone Hero Acevedo MD Primary Care Provider [phone] Encounter Details Date Type Department Care Team (Late st Contact Info) Description 05/30/[address] [address] Hero Acevedo MD [address] [place] [address] Social History Tobacco Use Types Packs/Day Years Used Date Smoking Tobacco: Never Smokeless Tobacco: Never Alcohol Use Standard Drinks/Week Comments Not Currently 0 (1 standard drink = 0.6 oz pur e alcohol) Sex and Gender Information Value Date Recorded Sex Assigned at Not on file 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 Gender Identity Not on file Sexual Orientation Not on file documented as of this encounter Miscellaneous Notes * Telephone Encounter - Regine Marroquin - 05/31/2019 10:31 AM CDT Spoke with patient * Telephone Encounter - Hero Acevedo MD - 05/30/2019 4:57 PM CDT Immunization record does not show pneumovax/ can get pneumovax 23 here or Prenair 13 at his pharmacy/ with asthma would recommend * Telephone Encounter - Regine Marroquin - 05/30/2019 4:54 PM CDT Patient called wants to know if you would recommend a pnue shot he has asthma documented in this encounter Plan of Treatment Not on file documented as of this encounter Visit Diagnoses Not on filedocumented in this encounter Care Teams Top Trimmer Relationship Specialty Start Date End Date Hero Acevedo MD [facility] [address] Duncan SINGH [address] [place] [address] PCP - General Cardiovascular Disease 11/23/17 3 documented as of this encounter
--- OUTSIDE RECORDS SUMMARY | 2024-03-04 10:36 | XMS_ITS | Encounter Summary ---
Author Organization [facility] Healthcare Address [address] [place] [address] Care Team Providers Care Medical Device Engineer Name Role Phone Hero Acevedo MD Primary Care Provider [phone] Encounter Details Date Type Department Care Team (Late st Contact Info) Description 11/25/2021 9:[address] 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 Gender Identity Not on file Sexual Orientation Not on file documented as of this encounter Plan of Treatment Not on file documented as of this encounter Procedures Procedure Name Priority Date/Time Associated Diagnosis Comments URINALYSIS AND REFLEX TO MICROSCOPIC Routine 11/25/2021 10:20 AM CDT Screening for blood or protein in urine URINALYSIS, MICROSCOPIC ONLY Routine 11/25/2021 10:20 AM CDT Screening for blood or protein in urine EGFR Routine 11/25/2021 9:45 AM CDT Mild intermittent asthma without complication DIFFERENTIAL AUTO Routine 11/25/2021 9:4 5 AM CDT Mild intermittent asthma without complication PSA SCREEN Routine 11/25/2021 9:45 AM CDT Prostate cancer screening CBC WITH AUTO DIFFERENTIAL Routine 11/25/2021 9:45 AM CDT Mild intermittent asthma without complication VITAMIN D 25 HYDROXY Routine 11/25/2021 9:45 AM CDT Vitamin D deficiency LIPID PANEL Routine 11/25/2021 9:45 AM CDT Screening cholesterol level COMPREHENSIVE METABOLIC PANEL Routine 11/25/2021 9:45 AM CDT Mild intermittent asthma without complication documented in this encounter Results * (ABNORMAL) Urinalysis, microscopic only (11/25/2021 10:20 AM CDT) WBC, ur >50(A) 0 - 5 /HPF [facility] RBC, ur 11-20(A) 0 - 2 /HPF [facility] Bacteria, ur 2+(A) [facility] Mucous, ur Present(A) [facility] Urine 11/25/2021 10:2 0 AM CDT 11/25/2021 1:42 PM CDT us Hero Acevedo MD LAB URINE ORDERABLES Final R esult [facility] [place] [address] * (ABNORMAL) Urinalysis reflex to microscopic (11/25/2021 10:20 AM CDT) Color, ur Straw Yellow [facility] Clarity, ur Cloudy(A) Clear [facility] Specific gravity, ur 1.008 1.003 - 1.030 [facility] pH, urine 6.5 [facility] Protein, ur ql 1+(A) Negative [facility] Glucose, ur ql Negative Negative [facility] Ketones, ur Negative Negative [facility] Bilirubin, ur Negative Negative [facility] Blood, ur Negative Negative [facility] Urobilinogen, ur <2.0 <2.0 mg/dL [facility] Nitrite, ur Positive(A) Negative [facility] Leukocyte esterase, ur 3+(A) Negative [facility] UA reflex comment Reflex to microscopic UA will be performed. [facility] Urine 11/25/2021 10:2 0 AM CDT 11/25/2021 1:42 PM CDT Narrative [facility] - 11/25/2021 1:58 PM CDT ?? Urine pH is affected by diet, medications, systemic acid-base disturbances, and renal tubular function. ??pH may affect urinary stone formation. ??For example, urine pH below 6.0 may help reduce the tendency for calcium phosphate stones and pH greater than 6.0 may reduce the tendency for uric acid stone formation. Source: [facility]. Last revised 03-25-2017 us Hero Acevedo MD LAB URINE ORDERABLES Final R esult [facility] [place] [address] * (ABNORMAL) eGFR (11/25/2021 9:45 AM CDT) Pathologist [facility] eGFR 31(L) 90 - 130 mL/min/1. 73 m2 [facility] Comment: Interpretive Data Reference Interval Normal ?>/= [...] interpretive data was last reviewed 2021. Blood 11/25/2021 9:45 AM CDT 11/25/2021 1:51 PM CDT us Hero Acevedo MD LAB BLOOD ORDERABLES Final R esult [facility] [place] [address] * Differential, auto (11/25/2021 9:45 AM CDT) Neutrophil abs 4.6 1.7 - 6.5 K/cumm [facility] Imm gran abs 0.0 0.0 - 0.1 K/cumm [facility] Lymphocyte abs 1.0 0.8 - 3.3 K/cumm [facility] Monocyte abs 0.6 0.2 - 0.8 K/cumm [facility] Eosinophil abs 0.1 0.0 - 0.5 K/cumm [facility] Basophil abs 0.1 0.0 - 0.1 K/cumm [facility] Neutrophil pct 71.9 % [facility] Comment: Interpretive Data Percent cell count reference ranges are not reported, since discordance with absolute values may lead to misinterpretation of CBC data. Current Interpretive Data was last revised on 2017. Imm gran pct 0.2 % [facility] Comment: Interpretive Data Percent cell count reference ranges are not reported, since discordance with absolute values may lead to misinterpretation of CBC data. Current Interpretive Data was last revised on 2017. Lymphocyte pct 15.9 % [facility] Comment: Interpretive Data Percent cell count reference ranges are not reported, since discordance with absolute values may lead to misinterpretation of CBC data. Current Interpretive Data was last revised on 2017. Monocyte pct 8.9 % [facility] Comment: Interpretive Data Percent cell count reference ranges are not reported, since discordance with absolute values may lead to misinterpretation of CBC data. Current Interpretive Data was last revised on 2017. Eosinophil pct 2.0 % [facility] Comment: Interpretive Data Percent cell count reference ranges are not reported, since discordance with absolute values may lead to misinterpretation of CBC data. Current Interpretive Data was last revised on 2017. Basophil pct 1.1 % [facility] Comment: Interpretive Data Percent cell count reference ranges are not reported, since discordance with absolute values may lead to misinterpretation of CBC data. Current Interpretive Data was last revised on 2017. Blood 11/25/2021 9:45 AM CDT 11/25/2021 1:42 PM CDT Hero Acevedo MD LAB BLOOD ORDERABLES Final R esult [facility] [place] [address] * (ABNORMAL) CBC with auto differential (11/25/2021 9:45 AM CDT) WBC 6.4 3.8 - 9.9 K/cumm [facility] Hgb 12.4(L) 13.0 - 17.5 g/dL [facility] Hct 39.9 38.9 - 50.3 % [facility] Plt 205 150 - 400 K/cumm [facility] MPV 11.1 9.1 - 12.3 fL [facility] RBC 4.24(L) 4.30 - 5.80 M/cumm [facility] MCV 94.1 81.3 - 96.4 fL [facility] MCH 29.2 27.1 - 33.3 pg [facility] MCHC 31.1(L) 32.3 - 35.7 g/dL [facility] RDW CV 13.1 11.1 - 14.9 % [facility] RDW SD 44.8 35.7 - 48.1 fL [facility] NRBC abs 0.00 0.00 - 0.01 K/cumm [facility] Blood 11/25/2021 9:45 AM CDT 11/25/2021 1:42 PM CDT Hero Acevedo MD LAB BLOOD ORDERABLES Final R esult Performing Organization Address City/State/[facility] Co de Phone Number [facility] [place] [address] * (ABNORMAL) Comprehensive metabolic panel (11/25/2021 9:45 AM CDT) Sodium 141 135 - 145 mmol/L [facility] Potassium, pl 5.4(H) 3.3 - 4.9 mmol/L [facility] Chloride 106 97 - 110 mmol/L [facility] CO2 25 22 - 32 mmol/L [facility] Anion gap 10 2 - 15 mmol/L [facility] BUN 32(H) 8 - 25 mg/dL [facility] Creatinine 2.39(H) 0.80 - 1.30 mg/dL [facility] Glucose 61(L) 70 - 199 mg/dL [facility] Comment: Interpretive Data Fasting glucose >/= [...] 2017. Calcium 9.6 8.5 - 10.3 mg/dL [facility] Bilirubin, total 0.2 0.1 - 1.2 mg/dL [facility] Protein, pl 7.7 6.5 - 8.5 g/dL [facility] Albumin 4.0 3.5 - 5.0 g/dL [facility] Alk phos 116 40 - 130 Units/L [facility] ALT 23 7 - 55 Units/L [facility] AST 20 10 - 50 Units/L [facility] Blood 11/25/2021 9:45 AM CDT 11/25/2021 1:42 PM CDT Hero Acevedo MD LAB BLOOD ORDERABLES Final R esult Performing Organization Address City/State/[facility] Co de Phone Number [facility] [place] [address] * Lipid panel (11/25/2021 9:45 AM CDT) Cholesterol 152 30 - 199 mg/dL [facility] Comment: Interpretive Data Ages < or [...] revised on 2017. Triglycerides 41 <=149 mg/dL [facility] Comment: Interpretive Data Ages < or [...] revised on 2017. HDL 86 >=40 mg/dL [facility] Comment: Interpretive Data Ages < or [...] 2017. LDL, calculated 58 <=129 mg/dL [facility] Comment: Interpretive Data Ages < or [...] revised on 2017. Non-HDL Cholesterol 66 mg/dL [facility] Comment: Interpretive Data Ages < or [...] last revised on 2017. Chol/HDL ratio 2 [facility] Blood 11/25/2021 9:45 AM CDT 11/25/2021 1:42 PM CDT us Hero Acevedo MD LAB BLOOD ORDERABLES Final R esult [facility] [place] [address] * Vitamin D 25 hydroxy (11/25/2021 9:45 AM CDT) Vitamin D 25-OH 57 30 - 80 ng/mL [facility] Blood 11/25/2021 9:45 AM CDT 11/25/2021 1:42 PM CDT Hero Acevedo MD LAB BLOOD ORDERABLES Final R esult Performing Organization Address [facility] Co de Phone Number [facility] [place] [address] * PSA screen (11/25/2021 9:45 AM CDT) PSA-Total 0.96 <=3.90 ng/mL [facility] Comment: Interpretive Data ?AGE ? SEX ?REFERENCE [...] MD LAB BLOOD ORDERABLES Final R esult Performing Organization Address [facility] Co de Phone Number [facility] [place] [address] documented in this encounter Visit Diagnoses Diagnosis Prostate cancer screening Special screening for malignant neoplasm of prostate Screening for blood or protein in urine Screening for unspecified condition Vitamin D deficiency Screening cholesterol level Screening for lipoid disorders Mild intermittent asthma without complication documented in this encounter Care Teams Medical Device Engineer Relationship Specialty Start Date End Date Hero Acevedo MD [facility] [address] Duncan SINGH [address] [place] [id number] PCP - General Cardiovascular Disease 11/23/17 3 documented as of this encounter
--- OUTSIDE RECORDS SUMMARY | 2024-03-04 10:36 | XMS_ITS | Encounter Summary ---
Author Organization [facility] Address [address] [place] [phone] Phone Care Team Providers Care Rn Lab Name Role Phone Hero Acevedo MD Primary Care Provider [phone] Encounter Details Date Type Department Care Team (Late st Contact Info) Description 12/19/[address] [address] Mary Saenz RMA Social History Tobacco Use Types Packs/Day Years Used Date Smoking Tobacco: Never Smokeless Tobacco: Never Alcohol Use Standard Drinks/Week Comments Not Currently 0 (1 standard drink = 0.6 oz pur e alcohol) Sex and Gender Information Value Date Recorded Sex Assigned at Not on file 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 Get lab work at [facility] documented in this encounter Plan of Treatment Not on file documented as of this encounter Procedures Procedure Name Priority Date/Time Associated Diagnosis Comments PSA SCREEN Routine 12/24/2018 11:16 AM CDT Benign prostatic hyperplasia with lower urinary tract symptoms, symptom details unspecified documented in this encounter Results * PSA screen (12/24/2018 11:16 AM CDT) PSA 0.7 < OR = 4.0 ng/mL [facility] Comment: The total PSA value from this assay system is standardized against the WHO standard. The test result will be approximately 20% lower when compared to the equimolar-standardized total PSA ([place]). Comparison of serial PSA results should be interpreted with this fact in mind. This test was performed using the Siemens chemiluminescent method. Values obtained from different assay methods cannot be used interchangeably. PSA levels, regardless of value, should not be interpreted as absolute evidence of the presence or absence of disease. Blood specimen (specimen) 12/24/2018 11:16 AM CDT 12/24/2018 11:34 AM CDT Narrative Resulting Agency Comment Performing Organization Information: ?Site ID: [id number] ?Name: [facility] [facility] ?Address: [id number] [id number] ?Director: Hero Higginbotham D.O., MPH Hero Acevedo MD LAB BLOOD ORDERABLES Final R esult [facility] [place] documented in this encounter Visit Diagnoses Diagnosis Benign prostatic hyperplasia with lower urinary tract symptoms, symptom details unspecified- Primary documented in this encounter Care Teams Rn Lab Relationship Specialty Start Date End Date Hero Acevedo MD [facility] [address] Duncan SINGH [address] [place] [address] PCP - General Cardiovascular Disease 11/23/17 3 documented as of this encounter
--- OUTSIDE RECORDS SUMMARY | 2024-03-04 10:36 | XMS_ITS | Encounter Summary ---
Author Organization [facility] Address [address] [place] [address] Phone Care Team Providers Care Supervisor Brew [employer] Name Role Phone Hero Acevedo MD Primary Care Provider [phone] Reason for Visit * Reason Comments Pain Pain * Consultation (Routine) - Closed Specialty Diagnoses / Procedures Referred By Margie norton Referred To Contact Orthopedic Surgery Diagnoses Degenerative arthritis of thumb, unspecified laterality Shruti Haley PA Phone: tel: fax: [facility] (All Locations) Referral ID Status Reason Start Date Expiration Date V isits Requested Visits Authorized [id number] Closed Specialty Services Required 05/01/2021 05/31/2022 1 1 Encounter Details Date Type Department Care Team (Late st Contact Info) Description 05/28/2021 1:00 PM CDT Office Visit [facility] Orthopaedic Surgery [address] [facility] 6th [place] [address] [place] [id number] Jeffy Araujo MD [address] [facility] [address] [place] [address] Pain in both wrists (Primary Dx); Degenerative arthritis of thumb, unspecified laterality Social History Tobacco Use Types Packs/Day Years [...] on file 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 Gender Identity Not on file Sexual Orientation Not on file documented as of this encounter Last Filed Vital Signs Vital Sign Reading Time Taken Comments Blood Pressure - - Pulse - - Temperature - - Respiratory Rate - - Oxygen Saturation - - Inhaled Oxygen Concentration - - Weight 88 kg (194 lb) 05/28/2021 1:05 PM CDT Height 185.4 cm (6' 1 ) 05/28/2021 1:05 PM CDT Body Mass Index 25.6 05/28/2021 1:05 PM CDT documented in this encounter Progress Notes * Jeffy Araujo MD - 05/28/2021 1:00 PM CDT CHIEF COMPLAINT Bilateral wrist and arm pain HISTORY OF PRESENT ILLNESS Patient presents as a new patient for bilateral wrist are pain has been going on for many years. Hereports decades of wrist and arm swelling. He does report however the past 1 and half to 2 months asevere pain on the dorsum of his bilateral wrists and forearms. It was so severe that he could not sleep at night. However about 3 weeks ago started to resolve on the stone he has almost no pain today. He reports that he notices pain improving when he cut down on drinking soda. He takes multiple supplements including turmeric. He also reports some numbness all over his body but also his fingers and is worse in the morning but after he drank some water gets better. His primary doctor is working up for some kind of chronic inflammation. He has notable dry skin to the volar and dorsal aspect of his mid forearm distal. He had recent labs that showed an elevated CCP. He is also being worked up for low iron which is why he has not started any anti-inflammatories like meloxicam. 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 PAST MEDICAL HISTORY He has a past medical history of Anxiety, Arthritis (1977), Asthma, Cancer (CMS/HCC) ([facility]) (2002), Chronic fatigue, Constipation, Depression, OCD (obsessive compulsive disorder), Sleep apnea (2002), Thyroid disease (1999), and Tuberculosis (1973). PAST SURGICAL HISTORY He has a past surgical history that includes Knee surgery; Colonoscopy (09/30/2017); and Flexible sigmoidoscopy (01/12/2019). INITIAL REVIEW OF MEDICATIONS He has a current medication list which includes the following prescription(s): albuterol hfa, caprylic/capric triglyceride, cholecalciferol, clobetasol, fluticasone propion-salmeterol, lactobacillus comb no.10, paroxetine, polycarbophil, and venlafaxine xr. DRUG ALLERGIES He is allergic to tetracycline, glutathione (bulk), and prozac [fluoxetine]. SOCIAL HISTORY He reports that he has never smoked. He has never used smokeless tobacco. He reports previous alcohol use. He reports that he does not use drugs. FAMILY HISTORY His family history includes Alcohol abuse in his father and sister; Alzheimer's disease in his mother; Arthritis in his mother; Cancer in his father, mother, and sister; Diabetes in his sister; Drug abuse in his sister; Hypertension in his mother and sister; Mental illness in his father, mother, and sister; Miscarriages / Stillbirths in his mother; Vision loss in his sister. REVIEW OF SYSTEMS Review of Systems All other systems reviewed and are negative. PHYSICAL EXAM The patient was alert and oriented normally. Normal affect. Skin is intact, pulses normal, and neurologically intact. Bilateral upper extremities: Visual inspection of the bilateral extremities shows extreme skin dryness and scaling from the distal 3rd of the forearm to the fingertips on both the volar and dorsal aspects. This also involves hispalm. He is nontender over the lateral epicondyle and medial epicondyle. He is nontender over the radial tunnels. Nontender remainder of the forearm. He has a negative Tinel's at the cubital tunnel. He has no pain with resisted wrist flexion or extension. He can make a full fist. He has negative Tinel's at the carpal tunnel. Negative Durkan's. 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 The radiocarpal and ulnocarpal joints are well aligned. The SL interval is normal on the right and left wrist. The SL angle is also normal in the right and left wrists. There are no fractures or dislocations. ASSESSMENT AND PLAN: Patient presents today with 2 and half months of severe bilateral dorsal forearm pain and wrist pain. Unfortunately, this has resolved on its own in the past few weeks may be due to decrease in soda intake. He does have significant dry skin on both the dorsal and volar aspects of his hands and elevated inflammatory markers. My suspicion is that he has some kind of underlining autoimmune or inflammatory condition leading to the symptoms. I do not see evidence of tendinitis or nerve compression that would be causing his symptoms at this time. Fortunately, he does have a rheumatology appointmentfor next week. I would like to hear back from him after this appointment. He is in agreement the plan. All questions were answered. In reviewing his inflammatory blood work it seems that the anti CCP level was very high. I will be interested in what Rheumatology has to say. I do not think there is anything going on that would be benefited by surgery. I was present for the critical portion of the history, physical examination and all radiographic studies were personally interpreted by me and I determined the diagnosis and treatment plan and communicated them to the patient. I agree with this report which was generated with the assistance of Dr. Kaur. Dr. Jeffy Araujo dictating with [facility]. Grey Percher variances may occur. Jeffy Araujo M.D. Professor Hand and Upper Extremity Surgery [facility] documented in this encounter Plan of Treatment Not on file documented as of this encounter Visit Diagnoses Diagnosis Pain in both wrists- Primary Degenerative arthritis of thumb, unspecified laterality documented in this encounter Discontinued Medications Medication Sig Discontinue Reason Start Date End Da te meloxicam (MOBIC) 7.5 mg tabletIndications:Arthr algia, unspecified joint Take 1 tablet (7.5 mg total) by mouth daily 04/30/2021 05/28/2021 turmeric root extract 500 mg capsuleIndications:Carolyn ent unsure of dose Take 1 capsule by mouth every other day 05/28/2021 UNABLE TO FINDIndications:Coffee enema per rectum Administer 1 each into affected nostril(s) 2 (two) times a week Coffee enema 05/28/2021 documented as of this encounter Orders Outpatient Referral Count Last Ordered Date Fir st Ordered Date AMB REFERRAL TO ORTHOPEDIC HAND 1 2 documented in this encounter Care Teams Supervisor Brew House Relationship Specialty Start Date End Date Hero Acevedo MD [address] [facility] [address] Duncan SINGH [address] [place] [address] PCP - General Cardiovascular Disease 11/23/17 3 documented as of this encounter
--- OUTSIDE RECORDS SUMMARY | 2024-03-04 10:36 | XMS_ITS | Encounter Summary ---
Author Organization [facility] Address [address] [place] [address] Phone Care Team Providers Care Quarter Supervisor Name Role Phone Hero Acevedo MD Primary Care Provider [phone] Encounter Details Date Type Department Care Team (Late st Contact Info) Description 11/28/[address] [address] Veda Morel Social History Tobacco Use Types Packs/Day Years Used Date Smoking Tobacco: Never Smokeless Tobacco: Never Alcohol Use Standard Drinks/Week Comments Not Currently 0 (1 standard drink = 0.6 oz pur e alcohol) Sex and Gender Information Value Date Recorded Sex Assigned at Not on file 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 Gender Identity Not on file Sexual Orientation Not on file documented as of this encounter Miscellaneous Notes * Telephone Encounter - Hero Acevedo MD - 11/28/2019 1:01 PM CDT rx for advair inhaler with 3 refills sent to his local pharacy [facility] * Telephone Encounter - Veda Morel - 11/28/2019 12:20 PM CDT Pt stated his Advair Which was ordered through [employer] [facility] got lost in the mail , would like rx sent [facility] Thanks documented in this encounter Plan of Treatment Not on file documented as of this encounter Visit Diagnoses Not on filedocumented in this encounter Care Teams Quarter Supervisor Relationship Specialty Start Date End Date Hero Acevedo MD [facility] [address] Duncan SINGH [address] [place] [address] PCP - General Cardiovascular Disease 11/23/17 3 documented as of this encounter
--- OUTSIDE RECORDS SUMMARY | 2024-03-04 10:36 | XMS_ITS | Encounter Summary ---
Author Organization [facility] Address [facility] [address] [address] Phone Care Team Providers Care Medical Staff Services Coordinator Name Role Phone Hero Acevedo MD Primary Care Provider [phone] Reason for Referral * Cardiology (Routine) - Closed Specialty Diagnoses / Procedures Referred By Contac t Referred To Contact Diagnoses Mild intermittent asthma without complication Procedures ECG 12 lead Hero Acevedo MD [address] [place] [address] KATIE SINGH [address] [place] [address] Phone: tel: fax: Referral ID Status Reason Start Date Expiration Date Visits Re quested Visits Authorized [id number] Closed 07/25/2020 08/24/2021 1 1 * Diagnostic Imaging (Routine) - Closed Specialty Diagnoses / Procedures Referred By Contac t Referred To Contact Diagnoses Exposure to TB Procedures XR Chest Pa Lateral 2 Vw Hero [facility] MD [facility] [address] [place] [address] Phone: tel: fax: [facility] Referral ID Status Reason Start Date Expiration Date Visits Re quested Visits Authorized [id number] Closed 07/25/2020 08/24/2021 1 1 Encounter Details Date Type Department Care Team (Late st Contact Info) Description 07/25/2020 2:15 PM CDT Office Visit [place] [id number] [facility] [address] [place] [phone] Hero Acevedo MD [address] [place] [address] [address] [place] [address] Mild intermittent asthma without complication (Primary Dx); Exposure to TB; Vitamin D deficiency; Colon polyp; Chronic pain of both knees; Obsessive-compulsive disorder, unspecified type; Prostate cancer screening; Screening cholesterol level Social History Tobacco Use Types Packs/Day Years Used Date Smoking Tobacco: Never Smokeless Tobacco: Never Alcohol Use Standard Drinks/Week Comments Not Currently 0 (1 standard drink = 0.6 oz pur e alcohol) Sex and Gender Information Value Date Recorded Sex Assigned at Not on file 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 Gender Identity Not on file Sexual Orientation Not on file documented as of this encounter Last Filed Vital Signs Vital Sign Reading Time Taken Comments Blood Pressure 142/90 07/25/2020 2:12 PM CDT Pulse 67 07/25/2020 2:12 PM CDT Temperature - - Respiratory Rate - - Oxygen Saturation 96% 07/25/2020 2:12 PM CDT Inhaled Oxygen Concentration - - Weight 85.7 kg (189 lb) 07/25/2020 2:12 PM CDT Height 188 cm (6' 2 ) 07/25/2020 2:12 PM CDT Body Mass Index 24.27 07/25/2020 2:12 PM CDT documented in this encounter Progress Notes * Hero Acevedo MD - 07/25/2020 2:15 PM CDT 54-year-old male here for general physical. He has OCD doing well on Effexor XR 37.5 mg a day and 30 mg of Paxil daily. He takes 4000 units of vitamin-D takes a probiotic Advair 250/51 puff a day plus ProAir a puff daily for asthma control. He uses turmeric for arthritis in his knees he is on a probiotic. Had a colonoscopy 2018 with benign polyps removed and is due for follow-up. Has some constipation but no blood in the stool. He denies significant headaches adequate vision adequate hearing asthma stable no cough for shortness of breath. Blood pressure 142/90 no chest pain or palpitations. 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 Diagnostic impression: OCD doing well on above medicines, history of colon polyps to have follow-up with Dr. Delgadillo, history of TB exposure will check chest x-ray, some arthritis in his knees. His cholesterol on last physical was 170 with an HDL of 100 his hemoglobin A1cs have been at 5.2 and his PSA on last exam 0.7. Complete screening labs including EKG chest x-ray, CBC, CMP, lipid panel, PSA, vitamin-D level are being obtain. EKG shows sinus rhythm normal ECG. 40 minutes of time was spent in reviewing records fromprior physicians interval history physical examination interpretation of EKG and ordering lab test. documented in this encounter Procedure Notes * Hero Aceveod MD - 07/25/2020 2:15 PM CDTAssociated Order(s): ECG 12 lead Post-Procedure Diagnose(s): Mild intermittent asthma without complication ECG 12 lead Date/Time: 07/25/2020 2:45 PM Performed by: Hero Acevedo MD Authorized by: Hero Acevedo MD Rhythm: sinus rhythm Rate: normal QRS axis: normal Conduction: conduction normal ST Segments: ST segments normal T Waves: T waves normal Other findings: early transition Clinical impression: normal ECG documented in this encounter Plan of Treatment Not on file documented as of this encounter Procedures Procedure Name Priority Date/Time Associated Diagnosis Comments PSA SCREEN Routine 08/06/2020 9:18 AM CDT Prostate cancer screening URINALYSIS AND REFLEX TO MICROSCOPIC Routine 08/06/2020 9:18 AM CDT Prostate cancer screening CBC WITH AUTO DIFFERENTIAL Routine 08/06/2020 9:18 AM CDT Mild intermittent asthma without complication VITAMIN D 25 HYDROXY Routine 08/06/2020 9:18 AM CDT Vitamin D deficiency LIPID PANEL Routine 08/06/2020 9:18 AM CDT Screening cholesterol level COMPREHENSIVE METABOLIC PANEL Routine 08/06/2020 9:18 AM CDT Mild intermittent asthma without complication ECG 12-LEAD Routine 07/25/2020 2:15 PM CDT Mild intermittent asthma without complication documented in this encounter Results * Vitamin D 25 hydroxy (08/06/2020 9:18 AM CDT) Pathologist [facility] Vitamin D 25-OH 39 30 - 100 ng/mL [facility] Comment: Vitamin D Status ? 25-OH Vitamin D: Deficiency: ?<20 ng/mL Insufficiency: ? 20 - 29 ng/mL Optimal: ? > or = 30 ng/mL For 25-OH Vitamin D testing on patients on D2-supplementation and patients for whom quantitation of D2 and D3 fractions is required, the [employer]() 25-OH VIT D, (D2,D3), LC/MS/MS is recommended: order code 64066 (patients >2yrs). See Note 1 Note 1 For additional information, please refer to http://education.MoneyFarm.Starfish 360/faq/XNW003 (This link is being provided for informational/ educational purposes only.) Blood specimen (specimen) 08/06/2020 9:18 AM CDT 08/06/2020 9:19 AM CDT Narrative [facility] - 08/07/2020 1:32 AM CDT FASTING:YES FASTING: YES Hero Acevedo MD LAB BLOOD ORDERABLES Final [facility] Performing Organization Address [facility] Co de Phone Number [facility] [address] [place] [address] * PSA screen (08/06/2020 9:18 AM CDT) PSA 0.7 < OR = 4.0 ng/mL [facility] Comment: The total PSA value from this assay system is standardized against the WHO standard. The test result will be approximately 20% lower when compared to the equimolar-standardized total PSA ([place]). Comparison of serial PSA results should be interpreted with this fact in mind. This test was performed using the Siemens chemiluminescent method. Values obtained from different assay methods cannot be used interchangeably. PSA levels, regardless of value, should not be interpreted as absolute evidence of the presence or absence of disease. Blood specimen (specimen) 08/06/2020 9:18 AM CDT 08/06/2020 9:19 AM CDT Narrative [facility] - 08/07/2020 1:32 AM CDT FASTING:YES FASTING: YES Hero Acevedo MD LAB BLOOD ORDERABLES Final [facility] Performing Organization Address [facility] de Phone Number [facility] [address] [place] [address] * (ABNORMAL) Urinalysis reflex to microscopic (08/06/2020 9:18 AM CDT) Color, ur YELLOW YELLOW [facility] Appearance, ur CLEAR CLEAR [facility] Specific gravity 1.004 1.001 - 1.035 [facility] pH, ur 6.5 5.0 - 8.0 [facility] Glucose, ur NEGATIVE NEGATIVE [facility] Bilirubin, ur NEGATIVE NEGATIVE [facility] Ketones, ur NEGATIVE NEGATIVE [facility] Blood, ur NEGATIVE NEGATIVE [facility] Protein, ur, quant NEGATIVE NEGATIVE [facility] Nitrites, ur NEGATIVE NEGATIVE [facility] Leukocyte esterase, ur 2+(A) NEGATIVE [facility] WBC, ur 6-10(A) < OR = 5 /HPF [facility] RBC, ur NONE SEEN < OR = 2 /HPF [facility] Epithelial cells, squamous, ur NONE SEEN < OR = 5 /HPF [facility] Bacteria, ur, quant NONE SEEN NONE SEEN /HPF [facility] Hyaline cast NONE SEEN NONE SEEN /LPF [facility] Urine 08/06/2020 9:18 AM CDT 08/06/2020 9:19 AM CDT Narrative [facility] - 08/07/2020 1:32 AM CDT FASTING:YES FASTING: YES us Hero Acevedo MD LAB URINE ORDERABLES Final R esult [facility] [address] [place] [address] * Lipid panel (08/06/2020 9:18 AM CDT) Cholesterol 165 <200 mg/dL [facility] HDL 96 > OR = 40 mg/dL [facility] Triglycerides 43 <150 mg/dL [facility] LDL 57 mg/dL (calc) [facility] Comment: Reference range: <100 Desirable range <100 mg/dL for primary prevention; ?? <70 mg/dL for patients with CHD or diabetic patients with > or = 2 CHD risk factors. LDL-C is now calculated using the Jesse-Nasra calculation, which is a validated novel method providing better accuracy than the Friedewald equation in the estimation of LDL-C. Jesse SS et al. MONICA. 2013;310(19): 1513-8375 (http://education.Gramco/faq/RBR021) Chol/HDL ratio 1.7 <5.0 (calc) [facility] Non-HDL, (LDL+VLDL) 69 <130 mg/dL (calc) [facility] Comment: For patients with diabetes plus 1 major ASCVD risk factor, treating to a non-HDL-C goal of <100 mg/dL (LDL-C of <70 mg/dL) is considered a therapeutic option. Blood specimen (specimen) 08/06/2020 9:18 AM CDT 08/06/2020 9:19 AM CDT Narrative [facility] - 08/07/2020 1:32 AM CDT FASTING:YES FASTING: YES Hero Acevedo MD LAB BLOOD ORDERABLES Final R esult [facility] [address] [address] [facility] [place] [address] * Comprehensive metabolic panel (08/06/2020 9:18 AM CDT) Pathologist [facility] Glucose 81 65 - 99 mg/dL [facility] Comment: ? Fasting reference interval BUN 18 7 - 25 mg/dL [facility] Creatinine 1.09 0.70 - 1.33 mg/dL [facility] Comment: For patients >49 years of age, the reference limit for Creatinine is approximately 13% higher for people identified as -Maldivian. eGFR NON-AFR. RUSSIAN 75 > OR = 60 mL/min/1 .73m2 [facility] EGFR 87 > OR = 60 mL/min/1 .73m2 [facility] BUN/creat ratio NOT APPLICABLE 6 - 22 (calc) [facility] Sodium 139 135 - 146 mmol/L [facility] Potassium, pl 4.7 3.5 - 5.3 mmol/L [facility] Chloride 104 98 - 110 mmol/L [facility] CO2 25 20 - 32 mmol/L [facility] Calcium 9.3 8.6 - 10.3 mg/dL [facility] Protein, sr 6.2 6.1 - 8.1 g/dL [facility] Albumin 4.1 3.6 - 5.1 g/dL [facility] GLOBULIN 2.1 1.9 - 3.7 g/dL (calc) [facility] Alb/glob ratio 2.0 1.0 - 2.5 (calc) [facility] Bilirubin, total 0.4 0.2 - 1.2 mg/dL [facility] Alk phos 79 35 - 144 U/L [facility] AST 22 10 - 35 U/L [facility] ALT (SGPT) 19 9 - 46 U/L [facility] Blood specimen (specimen) 08/06/2020 9:18 AM CDT 08/06/2020 9:19 AM CDT Narrative [facility] - 08/07/2020 1:32 AM CDT FASTING:YES FASTING: YES Hero Acevedo MD LAB BLOOD ORDERABLES Final R esult [facility] [address] [place] [address] * CBC with auto differential (08/06/2020 9:18 AM CDT) WBC 3.9 3.8 - 10.8 Thousand/u L [facility] RBC, POC 4.41 4.20 - 5.80 Million/uL [facility] Hgb 13.7 13.2 - 17.1 g/dL [facility] Hct 40.1 38.5 - 50.0 % [facility] MCV 90.9 80.0 - 100.0 fL [facility] MCH 31.1 27.0 - 33.0 pg [facility] MCHC 34.2 32.0 - 36.0 g/dL [facility] Rdw 12.3 11.0 - 15.0 % [facility] Platelets 171 140 - 400 Thousand/u L [facility] MPV 10.8 7.5 - 12.5 fL [facility] Neutrophils, abs 2,137 1,500 - 7,800 cells/uL [facility] Lymphocytes, abs 1,186 850 - 3,900 cells/uL [facility] Monocyte abs 417 200 - 950 cells/uL [facility] Eosinophils, abs 109 15 - 500 cells/uL [facility] Basophils, abs 51 0 - 200 cells/uL [facility] Neutrophils 54.8 % [facility] Lymphocyte pct 30.4 % [facility] Monocytes 10.7 % [facility] Eosinophils 2.8 % [facility] Basophils 1.3 % [facility] Blood specimen (specimen) 08/06/2020 9:18 AM CDT 08/06/2020 9:19 AM CDT Narrative [facility] - 08/07/2020 1:32 AM CDT FASTING:YES FASTING: YES us Hero Acevedo MD LAB BLOOD ORDERABLES Final R esult [facility] [address] [place] [address] * XR Chest Pa Lateral 2 Vw (07/25/2020 2:59 PM CDT) Anatomical Region Laterality Modality Body, Chest N/A Computed Radiogr aphy 07/25/2020 5:09 PM CDT Impressions 07/25/2020 5:49 PM CDT The current study is compared with the prior radiograph dated ??02/14/2018. The lungs are clear. There is no focal consolidation, pleural effusion, or pulmonary edema. There is no pneumothorax. Heart size and mediastinal contours are normal. No radiographic findings of active tuberculosis are seen. Dictated by: Andrea Ordaz M.D. The radiology attending physician has personally reviewed this study, and had reviewed and/or edited this written report and agrees with it. Electronically signed by: Ra Narvaez M.D. Narrative 07/25/2020 5:49 PM CDT EXAMINATION: 2 view chest radiograph Procedure Note Ra Narvaez MD - 07/25/2020 EXAMINATION: 2 view chest radiograph IMPRESSION: The current study is compared with the prior radiograph dated 02/14/2018. The lungs are clear. There is no focal consolidation, pleural effusion, or pulmonary edema. There is no pneumothorax. Heart size and mediastinal contours are normal. No radiographic findings of active tuberculosis are seen. Dictated by: Andrea Ordaz M.D. The radiology attending physician has personally reviewed this study, and had reviewed and/or edited this written report and agrees with it. Electronically signed by: Ra Narvaez M.D. Hero Acevedo MD IMG XR PROCEDURES Final Resu lt * ECG 12-LEAD (07/25/2020 2:15 PM CDT) Narrative Hero Acevedo MD - 07/25/2020 2:15 PM CDT Hero Acevedo MD ? 07/25/2020 ??2:46 PM ECG 12 lead Date/Time: 07/25/2020 2:45 PM Performed by: Hero Acevedo MD Authorized by: Hero Acevedo MD Rhythm: sinus rhythm Rate: normal QRS axis: normal Conduction: conduction normal ST Segments: ST segments normal T Waves: T waves normal Other findings: early transition Clinical impression: normal ECG us Hero Acevedo MD ECG ORDERABLES Final Result documented in this encounter Visit Diagnoses Diagnosis Mild intermittent asthma without complication- Primary Exposure to TB Vitamin D deficiency Colon polyp Benign neoplasm of colon Chronic pain of both knees Obsessive-compulsive disorder, unspecified type Prostate cancer screening Special screening for malignant neoplasm of prostate Screening cholesterol level Screening for lipoid disorders Exposure to TB documented in this encounter Care Teams Medical Staff Services Coordinator Relationship Specialty Start Date End Date Hero Acevedo MD [address] [place] [address] DR Duncan SINGH [address] [place] [address] PCP - General Cardiovascular Disease 11/23/17 3 documented as of this encounter
--- OUTSIDE RECORDS SUMMARY | 2024-03-04 10:36 | XMS_ITS | Encounter Summary ---
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 Concerning what cards he was sent concerning stool sample test. Pt. Just sent test to office yesterday. I told him I would let him know results after the test is run. 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
--- OUTSIDE RECORDS SUMMARY | 2024-03-04 10:36 | XMS_ITS | Encounter Summary ---
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 CERNER Urine, clean voided 05/02/2021 12:17 PM WHEEL BLOCKER 05/02/2021 5:43 PM WHEEL BLOCKER Narrative CERNER - 05/02/2021 6:23 PM WHEEL BLOCKER ?? Urine pH is affected by diet, medications, systemic acid-base disturbances, and renal tubular function. ??pH may affect urinary stone formation. ??For example, urine pH below 6.0 may help reduce the tendency for calcium phosphate stones and pH greater than 6.0 may reduce the tendency for uric acid stone formation. Source: [facility] [employer]. Last revised 03-25-2017 Shruti [facility] MICROBIOLOGY - GENERAL ORDERABLES Final Result [facility] [address] [address] [place] [address] documented in this encounter Visit Diagnoses Diagnosis Arthralgia, unspecified joint documented in this encounter Care Teams Arc Cutter Relationship Specialty Start Date End Date Hero Acevedo MD [address] [place] [address] DR Duncan SINGH [address] [place] [address] PCP - General Cardiovascular Disease 11/23/17 3 documented as of this encounter
--- OUTSIDE RECORDS SUMMARY | 2024-03-04 10:36 | XMS_ITS | Encounter Summary ---
Author Organization [facility] Address [address] [facility] [address] [place] [address] Care Team Providers Care Monument Stonecutter Name Role Phone Hero Acevedo MD Primary Care Provider [phone] Reason for Visit * Reason Onset Date Comments Prior Auth 08/20/2020 Approved - Colon oscopy Encounter Details Date Type Department Care Team (Late st Contact Info) Description 08/20/2020 Telephone [facility] [address] [facility] [address], [place] [address] Khang Osullivan MD [address] [facility] [address] [place] [address] Prior Auth (Approved - Colonoscopy) Social History Tobacco Use Types Packs/Day Years [...] on file 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 Spoke with Cecilia who has requested clinicals for diagnostic colon. Explained this would actually be a screening. Was informed that any colon less than 10 years requires PA from clinicals. Clinicals faxed 08/20 to [phone] (last colon and path and order) ref# [id number] documented in this encounter Plan of Treatment Not on file documented as of this encounter Visit Diagnoses Not on filedocumented in this encounter Care Teams Monument Stonecutter Relationship Specialty Start Date End Date Hero Acevedo MD [address] [place] [address] DR Duncan SINGH [address] [place] [address] PCP - General Cardiovascular Disease 11/23/17 3 documented as of this encounter
--- OUTSIDE RECORDS SUMMARY | 2024-03-04 10:36 | XMS_ITS | Encounter Summary ---
Author Organization [facility] Address [address] [place] [phone] Care Team Providers Care Patent Examiner Name Role Phone Hero Acevedo MD Primary Care Provider [phone] Encounter Details Date Type Department Care Team (Late st Contact Info) Description 05/31/2019 Telephone [facility] Health Information Release Services [address] [place] [address] [address] [place] [address] Vaibhav Abarca MD [address] [place] [address] [address] Social History Tobacco Use Types Packs/Day Years Used Date Smoking Tobacco: Never Smokeless Tobacco: Never Alcohol Use Standard Drinks/Week Comments Not Currently 0 (1 standard drink = 0.6 oz pur e alcohol) Sex and Gender Information Value Date Recorded Sex Assigned at Not on file 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 Gender Identity Not on file Sexual Orientation Not on file documented as of this encounter Miscellaneous Notes * Telephone Encounter - Regine Marroquin - 06/02/2019 1:32 PM CDT Spoke with patient * Telephone Encounter - Regine Marroquin - 05/31/2019 9:23 AM CDT Mr Bismark wants to know he had a colonoscopy there was a black area in his colon 2018 The colon was for the lower part was the black area still there documented in this encounter Plan of Treatment Not on file documented as of this encounter Visit Diagnoses Not on filedocumented in this encounter Care Teams Patent Examiner Relationship Specialty Start Date End Date Hero Acevedo MD [facility] DR Duncan SINGH [address] [place] [address] PCP - General Cardiovascular Disease 11/23/17 3 documented as of this encounter
--- OUTSIDE RECORDS SUMMARY | 2024-03-04 10:36 | XMS_ITS | Encounter Summary ---
Author Organization [facility] Address [address] [place] [phone] Phone Care Team Providers Care Geological Engineering Teacher Name Role Phone Hero Acevedo MD Primary Care Provider [phone] Encounter Details Date Type Department Care Team (Late st Contact Info) Description 06/23/[address] [address] Hero Acevedo MD [address] [place] [address] Social History Tobacco Use Types Packs/Day Years Used Date Smoking Tobacco: Never Smokeless Tobacco: Never Alcohol Use Standard Drinks/Week Comments Not Currently 0 (1 standard drink = 0.6 oz pur e alcohol) Sex and Gender Information Value Date Recorded Sex Assigned at Not on file 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 6 ft rule Do not think his mild asthma adds significant risk for him. * Telephone Encounter - Regine Marroquin - 06/23/2019 10:27 AM CDT He has astham Hasn't had an attack in a while Wants to know if he is at a high risk for coronavirus documented in this encounter Plan of Treatment Not on file documented as of this encounter Visit Diagnoses Not on filedocumented in this encounter Care Teams Geological Engineering Teacher Relationship Specialty Start Date End Date Hero Acevedo MD [facility] [address] Duncan SINGH [address] [place] [address] PCP - General Cardiovascular Disease 11/23/17 3 documented as of this encounter
--- OUTSIDE RECORDS SUMMARY | 2024-03-04 10:36 | XMS_ITS | Encounter Summary ---
Author Organization [facility] Healthcare Address [address] [place] [address] Care Team Providers Care Field Service Analyst Name Role Phone Hero Acevedo MD Primary Care Provider [phone] Reason for Referral * Diagnostic Imaging (Routine) - Closed Specialty Diagnoses / Procedures Referred By Contac t Referred To Contact Diagnoses Arthralgia, unspecified joint Procedures XR Forearm Left 1 View Deepa Conner MD [address] [place] [address] Phone: tel: fax: [address] [address] Referral ID Status Reason Start Date Expiration Date Visits Re quested Visits Authorized [id number] Closed 06/04/2021 07/04/2022 1 1 * Diagnostic Imaging (Routine) - Closed Specialty Diagnoses / Procedures Referred By Contac t Referred To Contact Diagnoses Arthralgia, unspecified joint Procedures XR Forearm Right 1 View Deepa Conner MD [address] [address] Phone: tel: fax: [address] [address] Referral ID Status Reason Start Date Expiration Date Visits Re quested Visits Authorized [id number] Closed 06/04/2021 07/04/2022 1 1 Reason for Visit * Diagnostic Imaging (Routine) - Closed Specialty Diagnoses / Procedures Referred By Contac t Referred To Contact Diagnoses Arthralgia, unspecified joint Procedures XR Forearm Right 1 View Deepa Conner MD [address] [address] Phone: tel: fax: [address] [address] Referral ID Status Reason Start Date Expiration Date Visits Re quested Visits Authorized [id number] Closed 06/04/2021 07/04/2022 1 1 Encounter Details Date Type Department Care Team (Latest Contact Info) Description 06/04/2021 12:10 PM CDT - 06/04/2021 11:59 PM CDT Hospital Encounter [facility] [address] [place], [place] [id number] Deepa Conner MD [address] [place] [id number] Arthralgia, unspecified joint Discharge Disposition: Discharge to home or self [...] on file 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 Gender Identity Not on file Sexual Orientation [...] tablet (625 mg total) by mouth daily clobetasoL (TEMOVATE) 0.05 % creamIndications:X erosis of skin Apply topically 2 (two) times a day 30 g 1 04/30/2021 2 albuterol HFA (ProAir HFA) 90 mcg/actuation inhalerIndications :Moderate persistent asthma without complication Inhale 2 puffs every 4 (four) hours as needed for wheezing or shortness of breath 3 Inhaler 3 02/28/2020 2 caprylic/capric triglyceride (CAPRYLIC-CAPRIC TRIGLY, BULK, MISC) 2 iron,carbonyl-shawn min C 65 mg iron- 125 mg tablet,delayed release (DR/EC) Take by mouth 2 lactobacillus comb no.10 20 billion cell capsule Take 1 capsule by mouth 2 venlafaxine XR (EFFEXOR-XR) 37.5 mg 24 [...] Priority Date/Time Associated Diagnosis Comments XR WRIST LEFT 3 OR MORE VIEWS Schedule Routine, Read Routine (OP Routine) 06/04/2021 12:26 PM CDT Arthralgia, unspecified joint XR HAND RIGHT 3 OR MORE VIEWS Schedule Routine, Read Routine (OP Routine) 06/04/2021 12:26 PM CDT Arthralgia, unspecified joint XR HAND LEFT 3 OR MORE VIEWS Schedule Routine, Read Routine (OP Routine) 06/04/2021 12:26 PM CDT Arthralgia, unspecified joint XR WRIST RIGHT 3 OR MORE VIEWS Schedule Routine, Read Routine (OP Routine) 06/04/2021 12:26 PM CDT Arthralgia, unspecified joint XR FOREARM RIGHT 1 VIEW Schedule Routine, Read Routine (OP Routine) 06/04/2021 12:26 PM CDT Arthralgia, unspecified joint XR FOREARM LEFT 1 VIEW Schedule Routine, Read Routine (OP Routine) 06/04/2021 12:26 PM CDT Arthralgia, unspecified joint documented in this encounter Results * XR Forearm Left 1 View (06/04/2021 [...] by: Kathya Teixeira MD Deepa Conner MD IM XR PROCEDURES F inal Result * XR Forearm Right 1 View (06/04/2021 [...] joint documented in this encounter Care Teams Field Service Analyst Relationship Specialty Start Date End Date Hero Acevedo MD [address] [place] [address] DR Duncan SINGH [address] [place] [address] PCP - General Cardiovascular Disease 11/23/17 3 documented as of this encounter
--- OUTSIDE RECORDS SUMMARY | 2024-03-04 10:36 | XMS_ITS | Encounter Summary ---
Author Organization [facility] Healthcare Address [address] [place] [address] Care Team Providers Care Varitype Operator Name Role Phone Hero Acevedo MD Primary Care Provider [phone] Reason for Referral * Diagnostic Imaging (Routine) - Closed Specialty Diagnoses / Procedures Referred By Contac t Referred To Contact Diagnoses Exposure to TB Procedures XR Chest Pa Lateral 2 Vw Hero Acevedo MD [address] [place] [address] [address] SINGH [address] [place] [address] Phone: tel: fax: [facility] Referral ID Status Reason Start Date Expiration Date Visits Re quested Visits Authorized [id number] Closed 07/25/2020 08/24/2021 1 1 Reason for Visit * Diagnostic Imaging (Routine) - Closed Specialty Diagnoses / Procedures Referred By Contissa t Referred To Contact Diagnoses Exposure to TB Procedures XR Chest Pa Lateral 2 Vw Hero Acevedo MD [address] [place] [address] [address]ATIE SINGH [address] [place] [address] Phone: tel: fax: [facility] Referral ID Status Reason Start Date Expiration Date Visits Re quested Visits Authorized [id number] Closed 07/25/2020 08/24/2021 1 1 Encounter Details Date Type Department Care Team (Late st Contact Info) Description 07/25/2020 2:52 PM CDT - 07/25/2020 11:59 PM CDT Hospital Encounter [facility] Radiology at the [address] [address] Hero Acevedo MD [address] [place] [address] DR Song [address] [place] [address] Exposure to TB Discharge Disposition: Discharge to home or self care Social History Tobacco Use Types Packs/Day Years Used Date Smoking Tobacco: Never Smokeless Tobacco: Never Alcohol Use Standard Drinks/Week Comments Not Currently 0 (1 standard drink = 0.6 oz pur e alcohol) Sex and Gender Information Value Date Recorded Sex Assigned at Not on file 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 30 tablet 3 11/29/2017 albuterol HFA (ProAir HFA) 90 mcg/actuation inhalerIndication s:Moderate persistent asthma without complication Inhale 2 puffs every 4 (four) hours as needed for wheezing or shortness of breath 3 Inhaler 3 02/28/2020 2 fluticasone propion-salmetero L (Advair Diskus) 250-50 mcg/dose diskus inhalerIndication s:Maintenance Therapy for Asthma Inhale 1 puff daily Rinse mouth with water after use to reduce aftertaste and incidence of candidiasis. Do not swallow. 1 each 3 11/28/2019 2 FLUZONE QUAD 2602-3149, PF, 60 mcg (15 mcg x 4)/0.5 mL syringe TO BE ADMINISTERED BY IMMUNIZING PHARMACIST 0 01/14/2018 1 PARoxetine (PAXIL) 20 mg tablet 02/19/2019 1 polyethylene glycol-electrolyt es (NULYTELY) 420 gram solutionIndicatio ns:Bowel Evacuation MIX AND DRINK UTD 0 12/07/2017 02 1 venlafaxine XR (EFFEXOR-XR) 37.5 mg 24 hr [...] Name Priority Date/Time Associated Diagnosis Comments XR CHEST PA LATERAL 2 VIEWS Schedule Routine, Read Routine (OP Routine) 07/25/2020 2:59 PM CDT Exposure to TB documented in this encounter Results * XR Chest Pa Lateral 2 Vw [...] it. Electronically signed by: Ra Narvaez M.D. us Hero Acevedo MD IMG XR PROCEDURES Final Resu lt documented in this encounter Visit Diagnoses Diagnosis Exposure to TB documented in this encounter Care Teams Varitype Operator Relationship Specialty Start Date End Date Hero Acevedo MD [facility] [address] Duncan SINGH [address] [place] [address] PCP - General Cardiovascular Disease 11/23/17 3 documented as of this encounter
--- OUTSIDE RECORDS SUMMARY | 2024-03-04 10:36 | XMS_ITS | Encounter Summary ---
Author Organization [facility] Address [address] [place] [phone] Phone Care Team Providers Care Consumer Science Teacher Name Role Phone Hero Acevedo MD Primary Care Provider [phone] Reason for Visit * Reason Onset Date Comments Medication Problem 12/04/2021 Encounter Details Date Type Department Care Team (Late st Contact Info) Description 12/04/[address] [address] Hero Acevedo MD [address] [place] [address] Medication Problem Social History Tobacco Use [...] on file 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 * Telephone Encounter - Hero Acevedo MD - 12/04/2021 11:43 AM CDT Rx for UTI changed to keflex 500 mg Bid x 2 wks/ rx sent to his local pharmacy * Telephone Encounter - Autumn Andrade RMA - 12/04/2021 8:56 AM CDT Pt has had issues w/ tendon pain while taking an abx in the past. 12/02/21 he was prescribed cipro & it has the same potential side effect. He spoke w/ pharmacist & they recommended he call provider about the possibility of changing to another abx. This should go to his [facility] pharm. Please advise. documented in this encounter Plan of Treatment Not on file documented as of this encounter Visit Diagnoses Not on filedocumented in this encounter Care Teams Consumer Science Teacher Relationship Specialty Start Date End Date Hero Acevedo MD [address] [place] [address] DR Duncan SINGH [address] [place] [address] PCP - General Cardiovascular Disease 11/23/17 3 documented as of this encounter
--- OUTSIDE RECORDS SUMMARY | 2024-03-04 10:36 | XMS_ITS | Encounter Summary ---
Author Organization [facility] Healthcare Address [address] [place] [address] Care Team Providers Care Hr Generalist Name Role Phone Hero Acevedo MD Primary Care Provider [phone] Reason for Referral * Diagnostic Imaging (Routine) - Closed Specialty Diagnoses / Procedures Referred By Contac t Referred To Contact Diagnoses Arthralgia, unspecified joint Procedures XR Wrist Left 3 or More Views Shruti Haley PA Phone: tel: fax: [facility] Referral ID Status Reason Start Date Expiration Date Visits Re quested Visits Authorized [id number] Closed 04/30/2021 05/30/2022 1 1 SCREEN LAYOUT DRAFTER * Diagnostic Imaging (Routine) - Closed Specialty Diagnoses / Procedures Referred By Contissa norton Referred To Contact Diagnoses Arthralgia, unspecified joint Procedures XR Wrist Right 3 or More Views Shruti Haley PA Phone: tel: fax: [facility] Referral ID Status Reason Start Date Expiration Date Visits Re quested Visits Authorized [id number] Closed 04/30/2021 05/30/2022 1 1 SCREEN LAYOUT DRAFTER Reason for Visit * Diagnostic Imaging (Routine) - Closed Specialty Diagnoses / Procedures Referred By Margie norton Referred To Contact Diagnoses Arthralgia, unspecified joint Procedures XR Wrist Right 3 or More Views Shruti Haley PA Phone: tel: fax: [facility] Referral ID Status Reason Start Date Expiration Date Visits Re quested Visits Authorized [id number] Closed 04/30/2021 05/30/2022 1 1 Encounter Details Date Type Department Care Team (Latest Contact Info) Description 04/30/2021 4:20 PM SILK SCREEN LAYOUT DRAFTER - 04/30/2021 11:59 PM SILK SCREEN LAYOUT DRAFTER Hospital Encounter [facility] Radiology at the [address] [address] Shruti Haley PA [address] [place] [address] Arthralgia, unspecified joint Discharge Disposition: Discharge to [...] on file 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 21 tablet 04/30/2021 2 albuterol HFA (ProAir HFA) 90 mcg/actuation inhalerIndications :Moderate persistent asthma without complication Inhale 2 puffs every 4 (four) hours as needed for wheezing or shortness of breath 3 Inhaler 3 02/28/2020 2 caprylic/capric triglyceride (CAPRYLIC-CAPRIC TRIGLY, BULK, MISC) 2 fluticasone propion-salmeteroL (Advair Diskus) 250-50 mcg/dose diskus inhalerIndications :Maintenance Therapy for Asthma Inhale 1 puff daily Rinse mouth with water after use to reduce aftertaste and incidence of candidiasis. Do not swallow. 1 each 3 11/28/2019 2 lactobacillus comb no.10 20 billion cell capsule Take 1 capsule by mouth 2 meloxicam (MOBIC) 7.5 mg tabletIndications: Arthralgia, unspecified joint Take 1 tablet (7.5 mg total) by mouth daily 30 tablet 1 04/30/2021 2 turmeric root extract 500 mg capsuleIndications [...] Priority Date/Time Associated Diagnosis Comments XR WRIST RIGHT 3 OR MORE VIEWS Schedule Routine, Read Routine (OP Routine) 04/30/2021 4:33 PM SILK SCREEN LAYOUT DRAFTER Arthralgia, unspecified joint XR WRIST LEFT 3 OR MORE VIEWS Schedule Routine, Read Routine (OP Routine) 04/30/2021 4:33 PM SILK SCREEN LAYOUT DRAFTER Arthralgia, unspecified joint IRON PROFILE W/ IBC Routine 04/30/2021 4:30 PM SILK SCREEN LAYOUT DRAFTER FERRITIN Routine 04/30/2021 4:30 PM SILK SCREEN LAYOUT DRAFTER documented in this encounter Results * XR Wrist Left 3 or More Views (04/30/2021 4:33 PM SILK SCREEN LAYOUT DRAFTER) Anatomical Region Laterality Modality Upper Extremities, Wrist Left Compute d Radiography 04/30/2021 4:38 PM SILK SCREEN LAYOUT DRAFTER Impressions 04/30/2021 4:38 PM SILK SCREEN LAYOUT DRAFTER 1. Severe bilateral thumb basal joint osteoarthritis. Electronically signed by: Dorian Lloyd M.D. Narrative 04/30/2021 4:38 PM SILK SCREEN LAYOUT DRAFTER EXAMINATION: XR WRIST RIGHT 3 OR MORE [...] Electronically signed by: Dorian Lloyd M.D. Shruti Dougie Chandiramani PA IMG XR PROCEDURES Final Result * XR Wrist Right 3 or More Views (04/30/2021 4:33 PM SILK SCREEN LAYOUT DRAFTER) Anatomical Region Laterality Modality Upper Extremities, Wrist Right Compute d Radiography 04/30/2021 4:38 PM SILK SCREEN LAYOUT DRAFTER Impressions 04/30/2021 4:38 PM SILK SCREEN LAYOUT DRAFTER 1. Severe bilateral thumb basal joint osteoarthritis. Electronically signed by: Dorian Lloyd M.D. Narrative 04/30/2021 4:38 PM SILK SCREEN LAYOUT DRAFTER EXAMINATION: XR WRIST RIGHT 3 OR MORE [...] [place] IMG XR PROCEDURES Final Result * Ferritin (04/30/2021 4:30 PM SILK SCREEN LAYOUT DRAFTER) Ferritin 254 30 - 400 ng/mL [facility] Blood 04/30/2021 4:30 PM SILK SCREEN LAYOUT DRAFTER 04/30/2021 6:45 PM SILK SCREEN LAYOUT DRAFTER Shruti [place] LAB BLOOD ORDERABL ES Final Result [facility] Department [place] [address] * (ABNORMAL) Iron profile w/ IBC (04/30/2021 4:30 PM SILK SCREEN LAYOUT DRAFTER) Iron 65 50 - 150 mcg/dL [facility] TIBC 234(L) 250 - 400 mcg/dL [facility] Transferrin saturation 28 20 - 50 % [facility] Blood 04/30/2021 4:30 PM SILK SCREEN LAYOUT DRAFTER 04/30/2021 6:45 PM SILK SCREEN LAYOUT DRAFTER us Shruti [place] LAB BLOOD ORDERABL ES Final Result [facility] Department [place] [address] documented in this encounter Visit Diagnoses Diagnosis Arthralgia, unspecified joint documented in this encounter Care Teams Hr Generalist Relationship Specialty Start Date End Date Hero Acevedo MD [address] [place] [address] DR Duncan SINGH [address] [place] [address] PCP - General Cardiovascular Disease 11/23/17 3 documented as of this encounter
--- OUTSIDE RECORDS SUMMARY | 2024-03-04 10:36 | XMS_ITS | Encounter Summary ---
Author Organization [facility] Address [address] [place] [phone] Phone Care Team Providers Care Remelt Pan Tank Operator Name Role Phone Hero Acevedo MD Primary Care Provider [phone] Encounter Details Date Type Department Care Team (Late st Contact Info) Description 11/28/2019 Orders Only [address] [address] Hero Acevedo MD [address] [place] [address] Social History Tobacco Use Types Packs/Day Years Used Date Smoking Tobacco: Never Smokeless Tobacco: Never Alcohol Use Standard Drinks/Week Comments Not Currently 0 (1 standard drink = 0.6 oz pur e alcohol) Sex and Gender Information Value Date Recorded Sex Assigned at Not on file 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 Do not swallow. 1 each 3 11/28/2019 2 documented in this encounter Plan of Treatment Not on file documented as of this encounter Visit Diagnoses Not on filedocumented in this encounter Discontinued Medications Medication Sig Discontinue Reason Start Date End Da te fluticasone propion-salmeteroL (Advair Diskus) 250-50 mcg/dose diskus inhalerIndications:Radha ntenance Therapy for Asthma Inhale 1 puff daily Rinse mouth with water after use to reduce aftertaste and incidence of candidiasis. Do not swallow. Reorder 11/22/2019 11/28/2019 documented as of this encounter Care Teams Remelt Pan Tank Operator Relationship Specialty Start Date End Date Hero Acevedo MD [facility]0 [facility] DR Duncan SINGH [address] [place] [address] PCP - General Cardiovascular Disease 11/23/17 3 documented as of this encounter
--- OUTSIDE RECORDS SUMMARY | 2024-03-04 10:36 | XMS_ITS | Encounter Summary ---
Author Organization [facility] Address [address] [place] [phone] Phone Care Team Providers Care Bug Trimmer Name Role Phone Hero Acevedo MD Primary Care Provider [phone] Reason for Visit * Reason Onset Date Comments critical lab result 01/19/2022 Encounter Details Date Type Department Care Team (Late st Contact Info) Description 01/19/[address] [address] Hero Acevedo MD [address] [place] [address] critical lab result Social History Tobacco Use Types Packs/Day Years [...] on file 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 red blood present, result verified by repeat analysis. Result will be faxed to office as well. Message sent to WB & post-it left on his monitor. CRUSHER OPERATOR documented in this encounter Plan of Treatment Not on file documented as of this encounter Visit Diagnoses Not on filedocumented in this encounter Care Teams Bug Trimmer Relationship Specialty Start Date End Date Hero Acevedo MD [facility]0 [facility] DR Duncan SINGH [address] [place] [address] PCP - General Cardiovascular Disease 11/23/17 3 documented as of this encounter
--- OUTSIDE RECORDS SUMMARY | 2024-03-04 10:36 | XMS_ITS | Encounter Summary ---
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
--- OUTSIDE RECORDS SUMMARY | 2024-03-04 10:36 | XMS_ITS | Encounter Summary ---
Author Organization [facility] Healthcare Address [address] [place] [address] Care Team Providers Care Scientific Investigator Name Role Phone Hero Acevedo MD Primary Care Provider [phone] Reason for Visit * Auth/Cert Specialty Diagnoses / Procedures Referred By Contac t Referred To Contact Diagnoses Personal history of colonic polyps Personal history of colonic polyps [Z86.010] Procedures ID COLONOSCOPY FLX DX W/COLLJ SPEC WHEN PFRMD COLONOSCOPY Referral ID Status Reason Start Date Expiration Date Visits Re quested Visits Authorized [id number] 1 1 Encounter Details Date Type Department Care Team (Late st Contact Info) Description 08/27/2020 12:37 PM CDT Anesthesia Event [facility] [address] [place] [phone] Deni Dill MD [address] [place] [id number] Anesthesia Record Procedure Summary Procedure Name Responsible Anesthesiologist Anesthesia Start Time Anesthesia Stop Time COLON REMOVAL SNARE (Colon) Deni Dill MD 08/27/20 1237 08/27/20 1323 Events Date Time Event Comment 08/27/2020 1213 1237 An Start 1238 An Start Data 1238 In Room 1241 Patient Positioned Laterally 1241 An Induction The patient was reevaluated immediately before moderate or deep sedation use and before anesthesia induction. 1242 Anesthesia Ready 1244 Proc Start 1316 an stop data 1317 Proc Fin 1320 Out of Room 1323 Handoff to RN I completed my handoff to the receiving nurse during which we: 1. Patient identified 2. Responsible provider identified 3. Pertinent medical history reviewed 4. Procedure type and surgical course discussed 5. Intraoperative anesthetic management and any significant issues discussed 6. Expectations and concerns for postop period discussed 7. Questions solicited from receiving nurse 8. Patient disposition at the time of handoff: PACU 1323 An Stop Meds Name Total lidocaine (cardiac) syringe 2 % 5 mL propofol 500 mg Lactated Ringer's (LR) infusion 777 mL sodium chloride 0.9% infusion 0 mL * Agents Name O2 * Blood No blood administrations on file. 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 Gender Identity Not on file Sexual Orientation Not on file documented as of this encounter OR Notes * Anesthesia Postprocedure Evaluation - Keya Miner CRNA - 08/27/2020 1:23 PM CDT Patient: Jean-Pierre Sofia Procedure Summary Date: 08/27/20 Room / Location: [facility] / [facility] Anesthesia Start: 1237 Anesthesia Stop: 1323 Procedure: COLON REMOVAL SNARE (N/A Colon) Diagnosis: Personal history of colonic polyps (Personal history of colonic polyps [Z86.010]) Providers: Khang Osullivan MD Responsible Provider: Deni Dill MD Anesthesia Type: general/TIVA ASA Status: 2 Anesthesia Type: general/TIVA Last vitals BP (P) 99/54 Pulse (P) 65 Temp 36.6 ??C (97.9 ??F) (Temporal) Resp (P) 15 SpO2 (P) 100% Anesthesia Post Evaluation No complications documented. * Anesthesia Preprocedure Evaluation - Deni Dill MD - 08/27/2020 12:13 PM CDT Images from the original note were not included. Anesthesia Evaluation Jean-Pierre Sofia is a 54 y.o. male Procedure(s): COLONOSCOPY Pre-Op Diagnosis Codes: * Personal history of colonic polyps [Z86.010] HISTORY Past Medical History Information obtained from: patient and chart. Neurological + Psychiatric history - anxiety and depression Respiratory + Asthma Patient Active Problem List Diagnosis ??? Moderate persistent asthma without complication ??? Benign colon polyp ??? Depression ??? Vitamin D deficiency ??? Personal history of colonic polyps Past Medical History: Diagnosis Date ??? Anxiety ??? Asthma ??? Chronic fatigue ??? Constipation ??? Depression ??? OCD (obsessive compulsive disorder) Past Surgical History: Procedure Laterality Date ??? COLONOSCOPY 09/30/2017 Benign colon polyp ??? FLEXIBLE SIGMOIDOSCOPY 01/12/2019 NAD ??? KNEE SURGERY Allergies Allergen Reactions ??? Glutathione (Bulk) Unknown ??? Prozac [Fluoxetine] Unknown ??? Tetracyclic Antidepressants Unknown Taking? Last Dose Start Date End Date Provider albuterol HFA (ProAir HFA) 90 mcg/actuation inhaler 02/28/20 -- Hero Acevedo MD Inhale 2 puffs every 4 (four) hours as needed for wheezing or shortness of breath fluticasone propion-salmeteroL (Advair Diskus) 250-50 mcg/dose diskus inhaler 11/28/19 -- Hero Acevedo MD Inhale 1 puff daily Rinse mouth with water after use to reduce aftertaste and incidence of candidiasis. Do not swallow. FLUZONE QUAD [id number], PF, 60 mcg (15 mcg x 4)/0.5 mL syringe 01/14/18 -- Fartun Khoury MD PARoxetine (PAXIL) 20 mg tablet 02/19/19 -- Fartun Khoury MD PARoxetine (PAXIL) 30 mg tablet () 11/29/17 01/28/18 Hero Acevedo MD Take 1 tablet (30 mg total) by mouth every morning. polyethylene glycol-electrolytes (NULYTELY) 420 gram solution 12/07/17 -- Fartun Khoury MD venlafaxine XR (EFFEXOR-XR) 37.5 mg 24 hr capsule () 11/29/17 11/29/18 Hero Acevedo MD Take 1 capsule (37.5 mg total) by mouth daily. Current Facility-Administered Medications: ??? Lactated Ringer's (LR) infusion, 30 mL/hr, intravenous, Continuous ??? sodium chloride 0.9% infusion, 30 mL/hr, intravenous, Continuous Social History Tobacco Use Smoking Status Never Smoker Smokeless Tobacco Never Used Substance and Sexual Activity Alcohol Use Not Currently Substance and Sexual Activity Drug Use Defer No family history on file. There were no vitals filed for this visit. PT: No results found for requested labs within last 720 hours. INR: No results found for requested labs within last 720 hours. APTT: No results found for requested labs within last 720 hours. Hgb A1C: No results found for requested labs within last 720 hours. CBC RBC: No results found for requested labs within last 720 hours. RDW: 08/06/2020: 12.3 % MCHC: 08/06/2020: 34.2 g/dL MCH: 08/06/2020: 31.1 pg MCV: 08/06/2020: 90.9 fL Hct: 08/06/2020: 40.1 % Hgb: 08/06/2020: 13.7 g/dL WBC: 08/06/2020: 3.9 Thousand/uL MPV: 08/06/2020: 10.8 fL Platelets: 08/06/2020: 171 Thousand/uL RDW CV: No results found for requested labs within last 720 hours. RDW Sd: No results found for requested labs within last 720 hours. BMP Glucose: 08/06/2020: 81 mg/dL Calcium: 08/06/2020: 9.3 mg/dL Sodium: 08/06/2020: 139 mmol/L Potassium: 08/06/2020: 4.7 mmol/L CO2: 08/06/2020: 25 mmol/L Chloride: 08/06/2020: 104 mmol/L BUN: 08/06/2020: 18 mg/dL Creatinine: 08/06/2020: 1.09 mg/dL DOS Physical Exam Medical history, medications, and allergies reviewed. Attestation: This PAT evaluation 08/27/2020. Airway Exam: Mallampati: II Cervical ROM: FROM TM distance: >4 Jaw ROM: full Cardiovascular Exam: Rate: regular Rhythm: regular Pulmonary Exam: LCTA, bilat Dental Exam: Otherwise appears intact Anesthesia Plan ASA 2 My patient is approved for the Anesthesia Controlled Medication protocol when under care of a PLANT AND MAINTENANCE TECHNICIAN Planned anesthesia: General/TIVA Team communication plan: mask Induction: Induction: intravenous. Postoperative Plan: No plan for postoperative opioid use. No postoperative mechanical ventilation intended. Patient's planned disposition post procedure is Outpatient. Informed Consent: Discussed plan with PLANT AND MAINTENANCE TECHNICIAN. Anesthesia plan and risks discussed with patient. Plan and Consent Comments: Backup plan is a general anesthetic with or without an endotracheal tube or LMA as required Consent and Attending signature: I and/or my designee have discussed the anesthesia plan, benefits, possible alternatives, parental presence at time of induction (if indicated), and clinically relevant risks that may include dental injury, unintentional awareness, and/or other complications. The patient and/or parent/legal guardian understand, and agree to proceed. All questions answered. documented in this encounter Plan of Treatment Not on file documented as of this encounter Visit Diagnoses Not on filedocumented in this encounter Administered Medications Inactive Administered [...] 12:35 PM CDT 30 mL/hr 30 mL/hr lidocaine (cardiac) (XYLOCAINE) preservative free injection intravenous, As needed, Starting on Wed08/27/20 at 1241, Anesthesia Intra-op, Indications: Ventricular ArrhythmiasIndications:Ventricular Arrhythmias Given 08/27/2020 12:41 PM CDT 5 mL propofoL (DIPRIVAN) 10 mg/mL IV intravenous, As needed, Starting on Wed08/27/20 at 1241, Anesthesia Intra-op Given 08/27/2020 1:14 PM CDT 50 mg Given 08/27/2020 1:11 PM CDT 50 mg Given 08/27/2020 1:08 PM CDT 50 mg documented in this encounter Care Teams Scientific Investigator Relationship Specialty Start Date End Date Hero Acevedo MD [address] [facility] [address] Duncan SINGH [address] [place] [address] PCP - General Cardiovascular Disease 11/23/17 3 documented as of this encounter
--- OUTSIDE RECORDS SUMMARY | 2024-03-04 10:36 | XMS_ITS | Encounter Summary ---
Author Organization [facility] Address [address] [facility] [address] [place] [address] Care Team Providers Care President & Ceo Name Role Phone Hero Acevedo MD Primary Care Provider [phone] Reason for Visit * Reason Onset Date Comments Procedure 07/31/2020 Colonoscopy Encounter Details Date Type Department Care Team (Late st Contact Info) Description 07/31/2020 Telephone [facility] [address] [facility] [address], [place] [address] Khang Osullivan MD [address] [facility] [address] [place], [place] [id number] Procedure (Colonoscopy) Social History Tobacco Use Types Packs/Day Years Used Date Smoking Tobacco: Never Smokeless Tobacco: Never Alcohol Use Standard Drinks/Week Comments Not Currently 0 (1 standard drink = 0.6 oz pur e alcohol) Sex and Gender Information Value Date Recorded Sex Assigned at Not on file 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 Acevedo's office documented in this encounter Plan of Treatment Not on file documented as of this encounter Visit Diagnoses Not on filedocumented in this encounter Care Teams President & Ceo Relationship Specialty Start Date End Date Hero Acevedo MD [address] [facility] [address] Duncan SINGH [address] [place] [address] PCP - General Cardiovascular Disease 11/23/17 3 documented as of this encounter
--- OUTSIDE RECORDS SUMMARY | 2024-03-04 10:36 | XMS_ITS | Encounter Summary ---
Author Organization [facility] Address [address] [place] [place] [phone] Phone Care Team Providers Care Caustic Purification Operator Name Role Phone Hero Acevedo MD Primary Care Provider [phone] Encounter Details Date Type Department Care Team (Late st Contact Info) Description 07/25/2020 Orders Only [address] [phone] Hero Acevedo MD [address] [place] [address] Screen for colon cancer (Primary Dx); Benign colon polyp Social History Tobacco Use Types Packs/Day Years Used Date Smoking Tobacco: Never Smokeless Tobacco: Never Alcohol Use Standard Drinks/Week Comments Not Currently 0 (1 standard drink = 0.6 oz pur e alcohol) Sex and Gender Information Value Date Recorded Sex Assigned at Not on file 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
--- OUTSIDE RECORDS SUMMARY | 2024-03-04 10:36 | XMS_ITS | Encounter Summary ---
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 Gender Identity Not on file Sexual Orientation Not on file documented as of this encounter Ordered Prescriptions Prescription Sig Dispense Quantity Refills Last Filled Start Date End Date sulfamethoxazole-tr imethoprim (BACTRIM DS) 800-160 mg per tabletIndications:A cute cystitis with hematuria One tab Bid x 2 wks then one tab at night for 2 weeks 42 tablet 11/28/2021 01/22/2022 documented in this encounter Plan of Treatment Not on file documented as of this encounter Visit Diagnoses Diagnosis Acute cystitis with hematuria- Primary documented in this encounter Care Teams Web Marketing Assistant Relationship Specialty Start Date End Date Hero Acevedo MD [facility] [address] Duncan SINGH [address] [place] [address] PCP - General Cardiovascular Disease 11/23/17 3 documented as of this encounter
--- OUTSIDE RECORDS SUMMARY | 2024-03-04 10:37 | XMS_ITS | Encounter Summary ---
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
--- OUTSIDE RECORDS SUMMARY | 2024-03-04 10:37 | XMS_ITS | Encounter Summary ---
Author Organization [facility] Address [address] [place] [address] [address] [place] [address] Phone Care Team Providers Care Field Appraiser Name Role Phone Hero Acevedo MD Primary Care Provider [phone] Encounter Details Date Type Department Care Team (Late st Contact Info) Description 02/14/2018 3:00 PM MEDIA SPECIALIST Office Visit [address] [place] [address] Hero Acevedo MD [address] [place] [address] [address] [place] [address] Benign colon polyp (Primary Dx); Depression, unspecified depression type; Vitamin D deficiency; Moderate persistent asthma without complication; Sicca, unspecified type (CMS/HCC); Positive PPD, treated Social History Tobacco Use Types Packs/Day Years Used Date Smoking Tobacco: Never Assessed Sex and Gender Information Value Date Recorded Sex Assigned at Not on file 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 Sex Male 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 SPECIALIST Gender Identity Not on file Sexual Orientation Not on file documented as of this encounter Last Filed Vital Signs Vital Sign Reading Time Taken Comments Blood Pressure 130/90 02/14/2018 3:03 PM MEDIA SPECIALIST Pulse 63 02/14/2018 3:03 PM MEDIA SPECIALIST Temperature - - Respiratory Rate - - Oxygen Saturation 97% 02/14/2018 3:03 PM MEDIA SPECIALIST Inhaled Oxygen Concentration - - Weight 96.3 kg (212 lb 6.4 oz) 02/14/2018 3:03 P M MEDIA SPECIALIST Height - - Body Mass Index - - documented in this encounter Progress Notes * Hero Acevedo MD - 02/14/2018 3:00 PM CST Patient is here for follow-up visit and had a recent colonoscopy with Dr. Abarca with several smallbenign polyps removed. He is due back 2020. Previously had had screening labs showing excellent lipids slightly low white blood count, normal thyroid test low hemoglobin A1c lipids liver test kidney test all in normal range. Patient had a previous positive PPD and was treated with INH for a year and wants to have a follow-up chest x-ray. He is on Advair ear and ProAir for mild asthma doing well no cough for shortness of breath or fever or night sweats. Does have dry skin and is interested in doing a test for Sjogren's his blood pressure is 130/90, chest is clear, cardiac exam no murmur. Abdomen nontender. Does have a lot of dry skin. Will get chest x-ray with his prior history of treatment for TB and do a Sjogren's antibody test. He had a recent TSH in vitamin-D level that were in normal range and was given a copy of these test results A SPECIALIST documented in this encounter Plan of Treatment Not on file documented as of this encounter Visit Diagnoses Diagnosis Benign colon polyp- Primary Depression, unspecified depression type Vitamin D deficiency Moderate persistent asthma without complication Sicca, unspecified type (HCC) Positive PPD, treated Nonspecific reaction to tuberculin skin test without active tuberculosis documented in this encounter Care Teams Field Appraiser Relationship Specialty Start Date End Date Hero Acevedo MD [address] [place] [address] DR Duncan SINGH [address] [place] [address] PCP - General Cardiovascular Disease 11/23/17 3 documented as of this encounter
--- OUTSIDE RECORDS SUMMARY | 2024-03-04 10:37 | XMS_ITS | Encounter Summary ---
Author Organization [facility] Address [address] [place] [phone] Phone Care Team Providers Care Tobacco Drying Machine Operator Name Role Phone Hero Acevedo MD Primary Care Provider [phone] Reason for Referral * Diagnostic Imaging (Routine) - Closed Specialty Diagnoses / Procedures Referred By Contac t Referred To Contact Diagnoses History of positive PPD Procedures XR Chest Pa Lateral 2 Vw Hero Acevedo MD Phone: tel: fax: [facility] Referral ID Status Reason Start Date Expiration Date Visits Re quested Visits Authorized [id number] Closed 02/14/2018 08/26/2019 1 1 S 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 Encounter Details Date Type Department Care Team (Late st Contact Info) Description 02/14/2018 Orders Only [address] [place] [address] Hero Acevedo MD [address] [place] [address] [address] Sicca syndrome (CMS/HCC) (Primary Dx); History of positive PPD Social History Tobacco Use Types Packs/Day Years Used Date Smoking Tobacco: Never Assessed Sex and Gender Information Value Date Recorded Sex Assigned at Not on file 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 Gender Identity Not on file Sexual Orientation Not on file documented as of this encounter Plan of Treatment Not on file documented as of this encounter Procedures Procedure Name Priority Date/Time Associated Diagnosis Comments SJOGRENS SYNDROME-A ANTIBODY Routine 02/19/2018 12:14 PM GIRLS 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 Sicca syndrome (CMS/HCC) documented in this encounter Results * Sjogrens syndrome-A antibody (02/19/2018 12:14 PM GIRLS 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) SJOGREN'S ANTIBODY (SS-A) <1.0 NEG <1.0 NEG AI [facility] [place] Blood specimen (specimen) 02/19/2018 12:14 PM GIRLS 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 02/19/2018 12:16 PM GIRLS 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 Narrative [facility] - 02/21/2018 12:23 PM GIRLS 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 FASTING:NO FASTING: NO Resulting Agency Comment Performing Organization Information: ?Site ID: [id number] ?Name: [facility] ?Address: [address] [place] [address] [place] [phone] ?Director: Hero Higginbotham D.O., MPH Hero Acevedo MD LAB BLOOD ORDERABLES Final R esult [facility] [place] * XR Chest Pa Lateral 2 Vw (02/14/2018 4:29 PM GIRLS 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) Anatomical Region Laterality Modality Body, Chest N/A Computed Radiogr aphy 02/14/2018 4:52 PM GIRLS 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 Impressions 02/14/2018 5:11 PM GIRLS 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 No prior study is available for comparison. ??No pneumothorax, pleural effusion, or pulmonary edema. ??No focal consolidation or pulmonary nodules. ??No findings to suggest pulmonary tuberculosis. The mediastinal contours and heart size are normal. Dictated by: Tariq Aranda M.D. Electronically signed by: Juan M Johnson M.D. Narrative 02/14/2018 5:11 PM GIRLS 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 EXAMINATION: 2 view chest radiograph Procedure Note Juan M Johnson MD - 02/14/2018 EXAMINATION: 2 view chest radiograph IMPRESSION: No prior study is available for comparison. No pneumothorax, pleural effusion, or pulmonary edema. No focal consolidation or pulmonary nodules. No findings to suggest pulmonary tuberculosis. The mediastinal contours and heart size are normal. Dictated by: Tariq Aranda M.D. Electronically signed by: Juan M Johnson M.D. Hero Acevedo MD IMG XR PROCEDURES Final Resu lt documented in this encounter Visit Diagnoses Diagnosis Sicca syndrome (HCC)- Primary Sicca syndrome History of positive PPD History of positive PPD documented in this encounter Care Teams Tobacco Drying Machine Operator Relationship Specialty Start Date End Date Hero Acevedo MD [facility] [address] Duncan SINGH [address] [place] [address] PCP - General Cardiovascular Disease 11/23/17 3 documented as of this encounter
--- OUTSIDE RECORDS SUMMARY | 2024-03-04 10:37 | XMS_ITS | Encounter Summary ---
Author Organization [facility] Facility Care Team Providers Care Manager Employment Name Role Phone Unavailable Primary Care Provider Unavailabl e Encounter Details Date Type Department Care Team (Late st Contact Info) Description 10/03/2009 12:00 PM CDT - 10/03/2009 4:00 PM T [facility] [id number] [place] [address] Localized osteoarthrosis, lower leg Social History Tobacco Use Types Packs/Day Years Used Date Smoking Tobacco: Never Assessed Sex and Gender Information Value Date Recorded Sex Assigned at Not on file 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
--- OUTSIDE RECORDS SUMMARY | 2024-03-04 10:37 | XMS_ITS | Encounter Summary ---
Author Organization [facility] Address [address] [place] [phone] Care Team Providers Care Manager Of Allied Health Services Name Role Phone Hero Acevedo MD Primary Care Provider [phone] Encounter Details Date Type Department Care Team (Late st Contact Info) Description 12/10/2017 12:00 PM CDT Office Visit [facility] Health Information Release Services [address] [place] [address] [place] [address] Vaibhav Abarca MD [address] [place] [address] DR Duncan SINGH [address] [place] [address] Social History Tobacco Use Types Packs/Day Years Used Date Smoking Tobacco: Never Assessed Sex and Gender Information Value Date Recorded Sex Assigned at Not on file 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
--- OUTSIDE RECORDS SUMMARY | 2024-03-04 10:37 | XMS_ITS | Encounter Summary ---
Author Organization [facility] Address [address] [place] [phone] Phone Care Team Providers Care Poultry Debeaker Name Role Phone Hero Acevedo MD Primary Care Provider [phone] Encounter Details Date Type Department Care Team (Late st Contact Info) Description 02/25/[address] [address] Hero Acevedo MD [address] [place] [address] Social History Tobacco Use Types Packs/Day Years Used Date Smoking Tobacco: Never Assessed Sex and Gender Information Value Date Recorded Sex Assigned at Not on file Legal Sex Male 3:46 AM CLAY HOISTER Gender Identity Not on file Sexual Orientation Not on file documented as of this encounter Miscellaneous Notes * Telephone Encounter - Regine Marroquin - 02/25/2018 4:36 PM CST Spoke with patient HOISTER * Telephone Encounter - Hero Acevedo MD - 02/25/2018 4:35 PM CST Aleve prn/ Urgent Care or orthopedic clinic tomorrow HOISTER * Telephone Encounter - XanderRegine adair - 02/25/2018 4:25 PM CST Horrible knee pain Unable to walk HOISTER documented in this encounter Plan of Treatment Not on file documented as of this encounter Visit Diagnoses Not on filedocumented in this encounter Care Teams Poultry Debeaker Relationship Specialty Start Date End Date Hero Acevedo MD [facility] DR Duncan SINGH [address] [place] [address] PCP - General Cardiovascular Disease 11/23/17 3 documented as of this encounter
--- OUTSIDE RECORDS SUMMARY | 2024-03-04 10:37 | XMS_ITS | Encounter Summary ---
Author Organization [facility] Address [address] [place] [address] Phone Care Team Providers Care Behavioral Instructor Name Role Phone Hero Acevedo MD Primary Care Provider [phone] Reason for Referral * (Routine) - Closed Specialty Diagnoses / Procedures Referred By Contac t Referred To Contact Diagnoses Moderate persistent asthma without complication Procedures ECG 12 lead Hero Acevedo MD Phone: tel: fax: Referral ID Status Reason Start Date Expiration Date Visits Re quested Visits Authorized [id number] Closed 11/24/2018 06/04/2020 1 1 Encounter Details Date Type Department Care Team (Late st Contact Info) Description 11/24/2018 12:30 PM CDT Office Visit [address] [place] [address] Hero Acevedo MD [address] [place] [address] Benign prostatic hyperplasia with lower urinary tract symptoms, symptom details unspecified (Primary Dx); Benign colon polyp; Vitamin D deficiency; Moderate persistent asthma without complication; Current mild episode of major depressive disorder, unspecified whether recurrent (CMS/HCC) Social History Tobacco Use Types Packs/Day Years Used Date Smoking Tobacco: Never Smokeless Tobacco: Never Alcohol Use Standard Drinks/Week Comments Not Currently 0 (1 standard drink = 0.6 oz pur e alcohol) Sex and Gender Information Value Date Recorded Sex Assigned at Not on file Legal Sex Male 3:46 AM SUPPORT STAFF Gender Identity Not on file Sexual Orientation Not on file documented as of this encounter Last Filed Vital Signs Vital Sign Reading Time Taken Comments Blood Pressure 120/80 11/24/2018 12:18 PM CDT Pulse 65 11/24/2018 12:18 PM CDT Temperature 36.5 ??C (97.7 ??F) 11/24/2018 12:18 PM C DT Respiratory Rate - - Oxygen Saturation 97% 11/24/2018 12:18 PM CDT Inhaled Oxygen Concentration - - Weight 95.7 kg (211 lb) 11/24/2018 12:18 PM CDT Height 185.4 cm (6' 1 ) 11/24/2018 12:18 PM CDT Body Mass Index 27.84 11/24/2018 12:18 PM CDT documented in this encounter Progress Notes * Hero Acevedo MD - 11/24/2018 12:30 PM CDT 52-year-old male seen for general physical. He had a colonoscopy last year with small benign polypsremoved and is due back 2020 for follow-up. 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 He is asthmatic using ProAir 1 puff every 4-6hours as needed and Advair Diskus 50/250 1 puff a day with good control. He was seen in the [facility] room in July for some abdominal bloating and discomfort that resolved lipase CBC liver function chemistry profile all normal uses 4000 units of vitamin-D for supplement. He is on than left visiting in and generic Paxil for anxiety and depression followed by his psychiatrist in doing well. Had a hemoglobin A1c last year 5.2 and cholesterol was 146, HDL 65, LDL 71, triglycerides 50. He is allergic to gluten thigh own, fluoxetine and tetracycline. He is a nonsmoker and a nondrinker. Reviewof systems: HEENT no headache or dizziness, sees well with bifocals, normal hearing. Some sinus nupur rgies. Respiratory asthma control negative chest x-ray last year. Cardiovascular blood pressure 120/80, no chest pain, no exertional dyspnea, no palpitations, no lower extremity edema. GI some constipation history of benign colon polyps followed by Dr. Abarca. nocturia x1 no history of stones orinfections. Neuromuscular mild arthritis. Dermatologic rash on the dorsum of both hands. Endocrine negative. Hematologic negative psychiatric doing well on above medications. Physical exam blood pressure 120/80 pulse is 65 weight 211 lb he is 6 ft 1 in in height. TMs are normal, nares are patent. Pharynx is clear. Thyroid is not enlarged. No cervical axillary nodes. Chest is clear. Cardiac exam no audible murmur. Abdomen nontender no organomegaly. Rectal exam smooth 1+ enlarged prostate extremities scaliness on the back of both hands lower extremities no edema intact pulses normal neurologic exam. Diagnostic impression dermatitis, mild asthma, stress anxiety doing well, sinus allergies, BPH. EKG is being obtained, lipid panels being obtain and PSA. Patient is wellness program form is being filled out and will be given to him. He will have his PSA done at [facility] and will notify him ifthere are any significant issues. Cholesterol today is 171, HDL cholesterol above 100, triglycerides below 45, LDL cholesterol 61, total cholesterol divided by HDL 1.7 and glucose 82. PSA is being obtained patient will be notified of any unusual findings his EKG shows normal sinus rhythm normal EKG. documented in this encounter Procedure Notes * Hero Acevedo MD - 11/24/2018 12:30 PM CDTAssociated Order(s): ECG 12 lead Post-Procedure Diagnose(s): Moderate persistent asthma without complication ECG 12 lead Date/Time: 11/24/2018 12:54 PM Performed by: Hero Acevedo MD Authorized by: Hero Acevedo MD Rhythm: sinus rhythm Rate: normal QRS axis: normal Conduction: conduction normal ST Segments: ST segments normal T Waves: T waves normal Other: no other findings Clinical impression: normal ECG documented in this encounter Miscellaneous Notes * Addendum Note - Hero Acevedo MD - 11/24/2018 12:30 PM CDTAddended by: HERO ACEVEDO on: 11/24/2018 01:01 PM Modules accepted: Orders * Addendum Note - Wilfrido Pace MA - 11/24/2018 12:30 PM CDTAddended by: WILFRIDO PACE on: 11/24/2018 01:35 PM Modules accepted: Orders documented in this encounter Plan of Treatment Not on file documented as of this encounter Procedures Procedure Name Priority Date/Time Associated Diagnosis Comments POCT LIPID PANEL Routine 11/24/2018 1:34 PM CDT Vitamin D deficiency ECG 12-LEAD Routine 11/24/2018 12:30 PM CDT Moderate persistent asthma without complication documented in this encounter Results * POCT lipid panel (11/24/2018 1:34 PM CDT) Cholesterol, POC mg/dL Comment:glu=82 HDL, POC 100 mg/dL Triglycerides, POC 45 mg/dL LDL Cholesterol POC n/a mg/dL Chol/HDL Ratio, POC n/a Non-HDL Cholesterol, POC n/a mg/dL Cholesterol Total, POC 171 mg/dL Capillary blood 11/24/2018 1 :34 PM CDT us Hero Acevedo MD POINT OF CARE TEST ORDERABLE S Final Result * ECG 12-LEAD (11/24/2018 12:30 PM CDT) Narrative Wilfrido Pace MA - 11/24/2018 12:30 PM CDT Hero Acevedo MD ? 11/24/2018 12:54 PM ECG 12 lead Date/Time: 11/24/2018 12:54 PM Performed by: Hero Acevedo MD Authorized by: Hero Acevedo MD Rhythm: sinus rhythm Rate: normal QRS axis: normal Conduction: conduction normal ST Segments: ST segments normal T Waves: T waves normal Other: no other findings Clinical impression: normal ECG Procedure Note Hero Acevedo MD - 11/24/2018 12:30 PM CDT ECG 12 lead Date/Time: 11/24/2018 12:54 PM Performed by: Hero Acevedo MD Authorized by: Hero Acevedo MD Rhythm: sinus rhythm Rate: normal QRS axis: normal Conduction: conduction normal ST Segments: ST segments normal T Waves: T waves normal Other: no other findings Clinical impression: normal ECG Hero Acevedo MD ECG ORDERABLES Final Result documented in this encounter Visit Diagnoses Diagnosis Benign prostatic hyperplasia with lower urinary tract symptoms, symptom details unspecified- Primary Benign colon polyp Vitamin D deficiency Moderate persistent asthma without complication Current mild episode of major depressive disorder, unspecified whether recurrent (HCC) documented in this encounter Care Teams Behavioral Instructor Relationship Specialty Start Date End Date Hero Acevedo MD [address] [place] [address] DR Duncan SINGH [address] [place] [address] PCP - General Cardiovascular Disease 11/23/17 3 documented as of this encounter
--- OUTSIDE RECORDS SUMMARY | 2024-03-04 10:37 | XMS_ITS | Encounter Summary ---
Author Organization [facility] Address [address] [place] [address] Care Team Providers Care Lead Installer Name Role Phone Hero Acevedo MD Primary Care Provider [phone] Reason for Referral * Diagnostic Imaging (Routine) - Closed Specialty Diagnoses / Procedures [facility] To Contact Diagnoses History of positive PPD Procedures XR Chest Pa Lateral 2 Vw Hero Acevedo MD Phone: tel: fax: [facility] Referral ID Status Reason Start Date Expiration Date Visits Re quested Visits Authorized [id number] Closed 02/14/2018 08/26/2019 1 1 N PICKER Reason for Visit * Diagnostic Imaging (Routine) - Closed Specialty Diagnoses / Procedures [facility] Referred To Contact Diagnoses History of positive PPD Procedures XR Chest Pa Lateral 2 Vw Hero Acevedo MD Phone: tel: fax: [facility] Referral ID Status Reason Start Date Expiration Date Visits Re quested Visits Authorized [id number] Closed 02/14/2018 08/26/2019 1 1 Encounter Details Date Type Department Care Team (Late st Contact Info) Description 02/14/2018 4:15 PM GRAIN PICKER - 02/14/2018 11:59 PM GRAIN PICKER Hospital Encounter [facility] [place] [address] [place] [address] Hero Acevedo MD [address] [place] [address] [place] [address] History of positive PPD Discharge Disposition: Discharge to home or self care Social History Tobacco Use Types Packs/Day Years Used Date Smoking Tobacco: Never Assessed Sex and Gender Information Value Date Recorded Sex Assigned at Not on file Legal Sex Male 3:46 AM GRAIN PICKER Gender Identity Not on file Sexual Orientation Not on file documented as of this encounter Medications at Time of Discharge PARoxetine (PAXIL) 30 mg tabletIndications :Depression, unspecified depression type Take 1 tablet (30 mg total) by mouth every morning. 30 tablet 3 11/29/2017 albuterol HFA (PROAIR HFA) 90 mcg/actuation inhalerIndication s:Bronchospasm Prevention Inhale 2 puffs every 4 (four) hours as needed for wheezing or shortness of breath. 8.5 g 3 11/29/2017 9 fluticasone-salme terol (ADVAIR DISKUS) 250-50 mcg/dose diskus inhalerIndication s:Maintenance Therapy for Asthma Inhale 1 puff daily. Rinse mouth with water after use to reduce aftertaste and incidence of candidiasis. Do not swallow. 1 each 3 11/29/2017 9 fluticasone-salme terol (ADVAIR DISKUS) 250-50 mcg/dose diskus inhaler Inhale 1 puff daily. Rinse mouth with water after use to reduce aftertaste and incidence of candidiasis. Do not swallow. 1 each 3 11/29/2017 9 FLUZONE QUAD [id number], PF, 60 mcg (15 mcg x 4)/0.5 mL syringe TO BE ADMINISTERED BY IMMUNIZING PHARMACIST 0 01/14/2018 1 polyethylene glycol-electrolyt es (NULYTELY) 420 gram [...] VIEWS Schedule Routine, Read Routine (OP Routine) 02/14/2018 4:29 PM GRAIN PICKER History of positive PPD documented in this encounter Results * XR Chest Pa Lateral 2 Vw (02/14/2018 4:29 PM GRAIN PICKER) Anatomical Region Laterality Modality Body, Chest N/A Computed Radiogr aphy 02/14/2018 4:52 PM GRAIN PICKER Impressions 02/14/2018 5:11 PM GRAIN PICKER No prior study is available for comparison. ??No pneumothorax, pleural effusion, or pulmonary edema. ??No focal consolidation or pulmonary nodules. ??No findings to suggest pulmonary tuberculosis. The mediastinal contours and heart size are normal. Dictated by: Tariq Aranda M.D. Electronically signed by: Juan M Johnson M.D. Narrative 02/14/2018 5:11 PM GRAIN PICKER EXAMINATION: 2 view chest radiograph Procedure Note [...] documented in this encounter Visit Diagnoses Diagnosis History of positive PPD documented in this encounter Care Teams Lead Installer Relationship Specialty Start Date End Date Hero Acevedo MD [address] [place] [address] DR [address] [address] PCP - General Cardiovascular Disease 11/23/17 3 documented as of this encounter
--- OUTSIDE RECORDS SUMMARY | 2024-03-04 10:37 | XMS_ITS | Encounter Summary ---
Author Organization [facility] Address [address] [place] [address] [address] Phone Care Team Providers Care Top Lift And Automatic Window Repairer Name Role Phone Hero Acevedo MD Primary Care Provider [phone] Encounter Details Date Type Department Care Team (Late st Contact Info) Description 11/29/2017 12:30 PM CDT Office Visit [address] [place] [address] Hero Acevedo MD [address] [place] [address] [facility] [address] [place] [address] Vitamin D deficiency (Primary Dx); Benign colon polyp; Depression, unspecified depression type; Moderate persistent asthma without complication Social History Tobacco Use Types Packs/Day Years Used Date Smoking Tobacco: Never Assessed Sex and Gender Information Value Date Recorded Sex Assigned at Not on file Legal Sex Male 3:46 AM 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 Gender Identity Not on file Sexual Orientation Not on file documented as of this encounter Last Filed Vital Signs Vital Sign Reading Time Taken Comments Blood Pressure 120/70 11/29/2017 12:33 PM CDT Pulse 72 11/29/2017 12:33 PM CDT Temperature - - Respiratory Rate - - Oxygen Saturation 98% 11/29/2017 12: 33 PM CDT Inhaled Oxygen Concentration - - Weight 97.4 kg (214 lb 12.8 oz) 018 12:33 PM CDT Height - - Body Mass Index - - documented in this encounter Ordered Prescriptions Prescription Sig Dispense Quantity Refills Last Filled Start Date End Date fluticasone-salmet adriel (ADVAIR DISKUS) 250-50 mcg/dose diskus inhalerIndications :Maintenance Therapy for Asthma Inhale 1 puff daily. Rinse mouth with water after use to reduce aftertaste and incidence of candidiasis. Do not swallow. 1 each 3 11/29/2017 9 documented in this encounter Progress Notes * Hero Acevedo MD - 11/29/2017 12:30 PM CDT 51-year-old male seen for first visit he is allergic to Prozac tetracycline and glutathione. He is a nonsmoker and a nondrinker. He is on ProAir 2 puffs every 4-6 hours as needed for asthma control and an Advair Diskus 50/251 puff a day. In breathing is in good control. Takes Venlafaxine 37.5mg and30 mg of Paxil under the supervision of a psychiatrist for anxiety and depression doing well. Takesvitamin-D 8000 units a day and his vitamin-D level set is 68. I have asked him to cut it down to 4000 units a day. He has had meniscus surgery on his left knee and [facility] and subsequent numerous scans have been negative for recurrence. He has had no transfusions. 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 Family history mother at 89 of Alzheimer's disease father at age 56 of lung cancer has a sister with schizophrenia diabetes glaucoma and a cancer on her leg. Another sisterthat is asthmatic. Review of systems: HEENT: Occasional headache mild dizziness. Has progressive lens and sees well and has good hearing. Respiratory asthma as outlined above. 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 GI no reflux slight constipation. Does have a history of colon scope 2010 with benign colon polyps removed. He is being set up for follow-up: Exam. nocturiatimes 1-2. Neuromuscular some stiffness in his neck and knees. Dermatologic see above endocrinologic recent cholesterol in excellent control. 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 Had a hemoglobin A1c recently that was 5.2 C reactive protein 2.0 cholesterol was 146, HDL 65, LDL 71, triglycerides 50. Exam: Blood pressure 120/70 pulse 72 and regular he is 6 ft 3 in in height, 214 lb, O2 sats 98%. TMs normal, nares patent. Posterior pharynx clear. Thyroid is not enlarged. No cervical axillary nodes. There is a scar mid sternal area that is well healed. Cardiac exam no murmur chest is clear. Abdomen nontender no organomegaly. Atrophic testes no hernias smooth prostate that is not enlarged guaiac-negative stool extremities intact pulseso significant diagnostic impression: Anxiety depression doing well on Paxil and Effexor. Status post arthroscopic surgery on the left knee with mild arthralgias. Vitamin-D deficiency on supplements. Histo ry of benign colon polyps/colon scope follow-up is being set up with Dr. Abarca. Vitamin-D deficiency on supplement. EKG shows sinus rhythm normal EKG. He will have vitamin-D level and thyroid test repeated in 6-8 weeks. documented in this encounter Plan of Treatment Not on file documented as of this encounter Visit Diagnoses Diagnosis Vitamin D deficiency- Primary Benign colon polyp Depression, unspecified depression type Moderate persistent asthma without complication documented in this encounter Care Teams Top Lift And Automatic Window Repairer Relationship Specialty Start Date End Date Hero Acevedo MD [address] [place] [address] DR Duncan SINGH [address] [place] [address] PCP - General Cardiovascular Disease 11/23/17 3 documented as of this encounter
--- OUTSIDE RECORDS SUMMARY | 2024-03-04 10:37 | XMS_ITS | Encounter Summary ---
Author Organization [facility] Facility Care Team Providers Care Ortho Tech Name Role Phone Hero Acevedo MD Primary Care Provider [phone] Encounter Details Date Type Department Care Team (Latest Contact Info) Description 08/05/2018 Travel Social History Tobacco Use Types Packs/Day Years Used Date Smoking Tobacco: Never Smokeless Tobacco: Never Alcohol Use Standard Drinks/Week Comments Not Currently 0 (1 standard drink = 0.6 oz pur e alcohol) Sex and Gender Information Value Date Recorded Sex Assigned at Not on file Legal Sex Male 3:46 AM VEGETABLE SPECKER Gender Identity Not on file Sexual Orientation Not on file documented as of this encounter Plan of Treatment Not on file documented as of this encounter Visit Diagnoses Not on filedocumented in this encounter Care Teams Ortho Tech Relationship Specialty Start Date End Date Hero Acevedo MD [facility] [address] Song [address] [address] PCP - General Cardiovascular Disease 11/23/17 3 documented as of this encounter
--- OUTSIDE RECORDS SUMMARY | 2024-03-04 10:37 | XMS_ITS | Encounter Summary ---
Author Organization [facility] Healthcare Address [address] [place] [address] Care Team Providers Care Oceanology Teacher Name Role Phone Unavailable Primary Care Provider Unavailabl e Encounter Details Date Type Department Care Team (Late st Contact Info) Description 01/18/2014 2:02 PM COLLEGE SPORTS COACH Hospital Encounter [facility] OP Francoise Mcnally MD [address] [place] [address] Nontoxic uninodular goiter Social History Tobacco Use Types Packs/Day Years Used Date Smoking Tobacco: Never Assessed Sex and Gender Information Value Date Recorded Sex Assigned at Not on file Legal Sex Male 3:46 AM COLLEGE SPORTS COACH Gender Identity Not on file Sexual Orientation Not on file documented as of this encounter Plan of Treatment Not on file documented as of this encounter Procedures Procedure Name Priority Date/Time Associated Diagnosis Comments T3, FREE Routine 01/18/2014 2:25 PM COLLEGE SPORTS COACH TSH Routine 01/18/2014 2:25 PM COLLEGE SPORTS COACH T4, FREE Routine 01/18/2014 2:25 PM COLLEGE SPORTS COACH documented in this encounter Results * T3, free (01/18/2014 2:25 PM COLLEGE SPORTS COACH) Free T3 3.46 3.10 - 6.80 pmol/L 01/18/2014 3:16 PM COLLEGE SPORTS COACH [facility] HISTORICAL RESULTS 01/18/2014 2:25 PM COLLEGE SPORTS COACH 01/18/2014 2:43 PM COLLEGE SPORTS COACH us Francoise Mcnally MD LAB BLOOD ORDERABLES Final Resul t Performing Organization Address [facility] de Phone Number [facility] HISTORICAL RESULTS * (ABNORMAL) T4, free (01/18/2014 2:25 PM COLLEGE SPORTS COACH) Free T4 0.80(L) 0.93 - 1.70 ng/dL 01/18/2014 3:16 PM COLLEGE SPORTS COACH [facility] HISTORICAL RESULTS 01/18/2014 2:25 PM COLLEGE SPORTS COACH 01/18/2014 2:43 PM COLLEGE SPORTS COACH us Francoise Mcnally MD LAB BLOOD ORDERABLES Final Resul t Performing Organization Address [facility] de Phone Number [facility] HISTORICAL RESULTS * TSH (01/18/2014 2:25 PM COLLEGE SPORTS COACH) TSH 1.79 0.27 - 4.20 uIU/mL 01/18/2014 3:16 PM COLLEGE SPORTS COACH [facility] HISTORICAL RESULTS 01/18/2014 2:25 PM COLLEGE SPORTS COACH 01/18/2014 2:43 PM COLLEGE SPORTS COACH us Francoise Mcnally MD LAB BLOOD ORDERABLES Final Resul t Performing Organization Address [facility] Co de Phone Number [facility] HISTORICAL RESULTS documented in this encounter Visit Diagnoses Diagnosis Nontoxic uninodular goiter documented in this encounter
--- OUTSIDE RECORDS SUMMARY | 2024-03-04 10:37 | XMS_ITS | Encounter Summary ---
Author Organization [facility] Address [address] [place] [phone] Phone Care Team Providers Care Oncology Nurse Name Role Phone Hero Acevedo MD Primary Care Provider [phone] Encounter Details Date Type Department Care Team (Late st Contact Info) Description 01/25/[address] [address] Hero Acevedo MD [address] [place] [phone] Social History Tobacco Use Types Packs/Day Years Used Date Smoking Tobacco: Never Assessed Sex and Gender Information Value Date Recorded Sex Assigned at Not on file Legal Sex Male 3:46 AM MAIL SORTING SUPERVISOR Gender Identity Not on file Sexual Orientation Not on file documented as of this encounter Miscellaneous Notes * Telephone Encounter - Regine Marroquin - 01/25/2018 4:59 PM CST Left message SORTING SUPERVISOR * Telephone Encounter - Hero Acevedo MD - 01/25/2018 4:50 PM CST Order placed with [facility] for Vit D level and thyroid panel SORTING SUPERVISOR * Telephone Encounter - Regine Marroquin - 01/25/2018 1:17 PM CST Would like to have his thyroid and vitamin d test order [facility] SORTING SUPERVISOR documented in this encounter Plan of Treatment Not on file documented as of this encounter Visit Diagnoses Not on filedocumented in this encounter Care Teams Oncology Nurse Relationship Specialty Start Date End Date Hero Acevedo MD [facility] [address] [place] [phone] PCP - General Cardiovascular Disease 11/23/17 3 documented as of this encounter
--- OUTSIDE RECORDS SUMMARY | 2024-03-04 10:37 | XMS_ITS | Encounter Summary ---
Author Organization [facility] Address [address] [place] [phone] Phone Care Team Providers Care Event Sales Assistant Name Role Phone Hero Archer MD Primary Care Provider [phone] Encounter Details Date Type Department Care Team (Late st Contact Info) Description 02/11/[address] [address] Hero Archer MD [address] [place] [address] Social History Tobacco Use Types Packs/Day Years Used Date Smoking Tobacco: Never Assessed Sex and Gender Information Value Date Recorded Sex Assigned at Not on file Legal Sex Male 3:46 AM GLOBAL CATEGORY MANAGER Gender Identity Not on file Sexual Orientation Not on file documented as of this encounter Miscellaneous Notes * Telephone Encounter - Regine Marroquin - 02/11/2018 5:22 PM CST Scheduled an appt with dr archer AL CATEGORY MANAGER documented in this encounter Plan of Treatment Not on file documented as of this encounter Visit Diagnoses Not on filedocumented in this encounter Care Teams Event Sales Assistant Relationship Specialty Start Date End Date Hero Archer MD [facility] [address] [place] [id number] PCP - General Cardiovascular Disease 11/23/17 3 documented as of this encounter
--- OUTSIDE RECORDS SUMMARY | 2024-03-04 10:37 | XMS_ITS | Encounter Summary ---
Author Organization [facility] Address [address] [place] [phone] Care Team Providers Care Dredge Runner Name Role Phone Hero Acevedo MD Primary Care Provider [phone] Encounter Details Date Type Department Care Team (Late st Contact Info) Description 01/10/2018 Telephone [facility] Health Information Release Services [address] [place] [address] [address] [place] [address] Vaibhav Abarca MD [address] [place] [phone] Social History Tobacco Use Types Packs/Day Years Used Date Smoking Tobacco: Never Assessed Sex and Gender Information Value Date Recorded Sex Assigned at Not on file 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 Gender Identity Not on file Sexual Orientation Not on file documented as of this encounter Miscellaneous Notes * Telephone Encounter - Regine Marroquin - 01/10/2018 3:48 PM CDT Spoke with patient * Telephone Encounter - Vaibhav Abarca MD - 01/10/2018 1:50 PM CDT [facility] * Telephone Encounter - Regine Marroquin - 01/10/2018 1:28 PM CDT Patient called Wants to know if he can take fieberKon for constipation regularly Or just for 7 days per package instruction Also can he take aligh documented in this encounter Plan of Treatment Not on file documented as of this encounter Visit Diagnoses Not on filedocumented in this encounter Care Teams Dredge Runner Relationship Specialty Start Date End Date Hero Acevedo MD [facility]0 [facility] [address] [place] [phone] PCP - General Cardiovascular Disease 11/23/17 3 documented as of this encounter
--- OUTSIDE RECORDS SUMMARY | 2024-03-04 10:37 | XMS_ITS | Encounter Summary ---
Author Organization [facility] Address [address] [place] [address] Phone Care Team Providers Care Lump Room Supervisor Name Role Phone Hero Acevedo MD Primary Care Provider [phone] Reason for Referral * Diagnostic Imaging (Routine) - Closed Specialty Diagnoses / Procedures Referred By Contac t Referred To Contact Diagnoses Acute pain of right knee Procedures XR Knee Right 3 Views XR Knee Right 4+ View Nayana Wayne PA Phone: tel: fax: [facility] Referral ID Status Reason Start Date Expiration Date Visits Re quested Visits Authorized [id number] Closed 02/26/2018 09/07/2019 1 1 LER Reason for Visit * Reason Comments Pain Encounter Details Date Type Department Care Team (Late st Contact Info) Description 02/26/2018 10:00 AM PEARLER Office Visit [facility]) - [facility] [id number] [place] [phone] Nayana Wayne PA [address] [place] [phone] [place] [address] Acute pain of right knee (Primary Dx); Right anterior knee pain Social History Tobacco Use Types Packs/Day Years Used Date Smoking Tobacco: Never Assessed Sex and Gender Information Value Date Recorded Sex Assigned at Not on file 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 Acute pain of right knee 2. Right anterior knee pain 1. Aleve (take 2 tablets twice daily) for 10 days. Then switch to an as needed basis. 2. Ice twice daily for 20 minutes 3. Begin physical therapy Follow up in 6 weeks if not better LER documented in this encounter Progress Notes * Nayana Wayne PA - 02/26/2018 10:00 AM CST [facility] 02/26/2018 Chief Complaint (CC): Chief Complaint Patient presents with ??? Right Knee - Pain HPI: Jean-Pierre Sofia is a 52 y.o. male who presents to Orthopedic Injury clinic today with complaints of right knee pain. Reports right knee pain that began acutely this past week. He has a history of leftknee meniscectomy over 10 years ago with no continued pain. He states that pain in the right knee began without acute injury or trauma. He states that he was using supplements new Rashmi immune, regular oral and cap her like acid that he thinks may have aggravated this pain. He states that it is worse with prolonged sitting and then standing. Better with rest. He describes it as aching and severe. He states he has minimal pain today though it was significantly worse on and Wednesday. Deniesfevers, catching, locking, giving way symptoms or significant swelling. Meds: Current Outpatient Prescriptions: ??? albuterol HFA (PROAIR HFA) 90 mcg/actuation inhaler, Inhale 2 puffs every 4 (four) hours as needed for wheezing or shortness of breath., Disp: 8.5 g, Rfl: 3 ??? fluticasone-salmeterol (ADVAIR DISKUS) 250-50 mcg/dose diskus inhaler, Inhale 1 puff daily. Rinse mouth with water after use to reduce aftertaste and incidence of candidiasis. Do not swallow., Disp: 1 each, Rfl: 3 ??? fluticasone-salmeterol (ADVAIR DISKUS) 250-50 mcg/dose diskus inhaler, Inhale 1 puff daily. Rinse mouth with water after use to reduce aftertaste and incidence of candidiasis. Do not swallow., Disp: 1 each, Rfl: 3 ??? FLUZONE QUAD [id number], PF, 60 mcg (15 mcg x 4)/0.5 mL syringe, TO BE ADMINISTERED BY IMMUNIZING PHARMACIST, Disp: , Rfl: 0 ??? PARoxetine (PAXIL) 30 mg tablet, Take 1 tablet (30 mg total) by mouth every morning., Disp: 30 tablet, Rfl: 3 ??? polyethylene glycol-electrolytes (NULYTELY) 420 gram solution, MIX AND DRINK UTD, Disp: , Rfl: 0 ??? venlafaxine XR (EFFEXOR-XR) 37.5 mg 24 hr capsule, Take 1 capsule (37.5 mg total) by mouth daily., Disp: 30 capsule, Rfl: 3 Allergies: Allergies Allergen Reactions ??? Glutathione (Bulk) Unknown ??? Prozac [Fluoxetine] Unknown ??? Tetracyclic Antidepressants Unknown Past Medical History (PMH): No past medical history on file. Family Hx/Social Hx: Family hx reviewed at today's visit. ROS: Please see scanned document for full details. I have reviewed. Physical Exam: There were no vitals taken for this visit. General: Patient is a well-appearing male in no acute distress, alert and oriented Cardiac: normal rate and rhythm Lungs: breathing regular rate, unlabored Skin: warm, well-perfused Vascular: 2+ pulses Exam limited to right knee Inspection: negative redness. negative swelling. negative bruising. negative bony deformity. Palpation: Effusion Mild Tenderness to palpation none. negative pain over anterior aspect of knee directly over patella. negative pain in suprapatellar region. negative pain to posterior knee. negative TTP over the medial joint line, negative TTP over lateral joint line, negative TTP over MCL, and negative TTP over LCL. ROM: Active flexion to 130/130 degrees and extension to 0/0 degrees. Passive Hip ROM: negative hip pain with passive ROM at the hip. Strength: Flexion/Quadricep strength 4/5. Extension/Hamstring strength 4/5. Sensation: Intact light touch sensation throughout both lower extremities. Vascular: Neurovascularly intact normal gait. SPECIAL TESTING: Patellar apprehension test: negative Patellar grind test: positive LCL instability: negative MCL instability: negative Jag???s: negative Anterior drawer: negative Posterior drawer: negative Varus stress: negative pain and negative instability in full extension. negative pain and negative instability at 30 degrees flexion. Valgus stress: negative pain and negative instability in full extension. negative pain and negativeinstability at 30 degrees flexion. Candelario: negative Xrays/Imaginv of the right knee were ordered obtain the office today reviewed by myself. X- rays reveal mild right medial compartment osteoarthritis and small joint effusion and moderate medial compartment osteoarthritis on the left. Assessment and Plan: 1. Acute pain of right knee Patients clinical history, exam findings, xray findings, and treatment options were discussed with him in the office today. Discussed that has signs and symptoms are most consistent with anterior, patellofemoral knee pain. Discussed conservative interventions including rest, ice, anti-inflammatories such as Aleve if permitted by his PCP and a course of physical therapy. An order for PT was provided today. We also discussed that he could discontinue his supplements that he is concerned about as these are elective. All questions were answered. Follow-up in 6 weeks. Nayana Wayne PA-C [facility] Department of Orthopedics Working in collaboration with Dr. Willy Villanueva. Dictation completed using [employer]. Variances may occur. LER documented in this encounter Plan of Treatment Not on file documented as of this encounter Procedures Procedure Name Priority Date/Time Associated Diagnosis Comments XR KNEE RIGHT 3 VIEWS Schedule Routine, Read Routine (OP Routine) 02/26/2018 10:23 AM PEARLER Acute pain of right knee documented in this encounter Results * XR Knee Right 3 Views (02/26/2018 10:23 AM PEARLER) Anatomical Region Laterality Modality Lower Extremities, Knee Right Computed Radiography 02/26/2018 10:3 4 AM PEARLER Impressions 02/26/2018 10:34 AM PEARLER Mild right knee medial compartment osteoarthritis with a small joint effusion. Electronically signed by: Malcolm Molina M.D. Narrative 02/26/2018 10:34 AM PEARLER EXAMINATION: Right knee 3 views HISTORY: Knee osteoarthritis FINDINGS: 3 view weightbearing examination of the right knee are compared to the study dated 10/03/2009. There is mild medial compartment osteoarthritis in the right knee. ??A small joint effusion is present. ??There is no fracture. There is moderate medial compartment osteoarthritis in the left knee. Procedure Note Malcolm Molina MD - 02/26/2018 EXAMINATION: Right knee 3 views HISTORY: Knee osteoarthritis FINDINGS: 3 view weightbearing examination of the right knee are compared to the study dated 10/03/2009. There is mild medial compartment osteoarthritis in the right knee. A small joint effusion is present. There is no fracture. There is moderate medial compartment osteoarthritis in the left knee. IMPRESSION: Mild right knee medial compartment osteoarthritis with a small joint effusion. Electronically signed by: Malcolm Molina M.D. Nayana N[facility] IMG XR PROCEDURES Final Re sult documented in this encounter Visit Diagnoses Diagnosis Acute pain of right knee- Primary Right anterior knee pain documented in this encounter Care Teams Lump Room Supervisor Relationship Specialty Start Date End Date Hero Acevedo MD [facility] [address] [place] [phone] PCP - General Cardiovascular Disease 11/23/17 3 documented as of this encounter
--- OUTSIDE RECORDS SUMMARY | 2024-03-04 10:37 | XMS_ITS | Encounter Summary ---
Author Organization [facility] Healthcare Address [address] [place] [address] Care Team Providers Care Motion Pictures Cartoonist Name Role Phone Hero Acevedo MD Primary Care Provider [phone] Reason for Visit * Reason Comments Abdominal Pain Encounter Details Date Type Department Care Team (Late st Contact Info) Description 08/06/2018 3:19 AM CDT - 08/06/2018 4:39 AM CDT Emergency [facility] Emergency Department [address] [place] [address] Zoraida Izquierdo MD [address] [place] [address] Dyspepsia (Primary Dx) Discharge Disposition: Discharge to home or self care Social History Tobacco Use Types Packs/Day Years Used Date Smoking Tobacco: Never Smokeless Tobacco: Never Alcohol Use Standard Drinks/Week Comments Not Currently 0 (1 standard drink = 0.6 oz pur e alcohol) Sex and Gender Information Value Date Recorded Sex Assigned at Not on file Legal Sex Male 3:46 AM 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 OPERATOR Gender Identity Not on file Sexual Orientation Not on file documented as of this encounter Last Filed Vital Signs Vital Sign Reading Time Taken Comments Blood Pressure 125/75 08/06/2018 4:30 AM CDT Pulse 65 08/06/2018 4:30 AM CDT Temperature 36.8 ??C (98.2 ??F) 08/05/2018 11:31 PM C DT Respiratory Rate 14 08/06/2018 4:30 AM CDT Oxygen Saturation 99% 08/06/2018 4:30 AM CDT Inhaled Oxygen Concentration - - Weight 95.3 kg (210 lb) 08/05/2018 11:31 PM CDT Height 188 cm (6' 2 ) 08/05/2018 11:31 PM CDT Body Mass Index 26.96 08/05/2018 11:31 PM CDT documented in this encounter Discharge Instructions * Discharge Instructions* Deidre Farley MD - 08/06/2018 4:01 AM CDT Please return to the nearest ER immediately if you have any fever, chills, abdominal pain, vomiting, diarrhea or develop other symptoms concerning to you as you may have an emergency medical condition necessitating additional management and possible inpatient admission. Please follow up with your primary care physician as above. Please have your primary care physicianreview non-acute laboratory or imaging findings for outpatient management as included in your discharge paperwork. Please call your primary care physician as above right after you are discharged to apprise them of your emergency department visit today and to make an appointment. Please call us if you have any questions: [facility] ER - [phone] [facility] ER - [phone] [facility] ER - [phone] You may receive a call from one of our facilities to see how you are doing over the next week and it will likely show up as a [phone] area code number you may not recognize. Please ensure you are able to be contacted. * Attachments The following attachments cannot be sent through Care Everywhere. * Gas and Bloating (AfterCare(R) Instructions(ER/ED)) (Kenyan) documented in this encounter Medications at Time [...] 1 each 3 11/29/2017 9 FLUZONE QUAD [id number], PF, 60 mcg (15 mcg x 4)/0.5 [...] documented in this encounter ED Notes * Zoraida Izquierdo MD - 08/06/2018 3:24 AM CDT HPI Chief Complaint Patient presents with ??? Abdominal Pain 52-year-old male with a past medical history of moderate persistent asthma/no prior hospitalizations or intubation who presents for evaluation of since resolved abdominal pain. Reports postprandial, diffuse abdominal pain associated with belching and desire to go to the bathroom and poop . States he initially presented for evaluation due to concern over a bloated belly but now pain is gone and belly looks normal again . Denies associated nausea/vomiting/diarrhea, prior surgeries/history of obstruction, hernia, constipation/obstipation or constitutional symptoms/illness. Patient History Patient Active Problem List Diagnosis Date Noted ??? Moderate persistent asthma without complication 11/29/2017 ??? Benign colon polyp 11/29/2017 ??? Depression 11/29/2017 ??? Vitamin D deficiency 11/29/2017 Past Medical History: Diagnosis Date ??? Anxiety ??? Asthma ??? Chronic fatigue ??? Constipation ??? Depression ??? OCD (obsessive compulsive disorder) Past Surgical History: Procedure Laterality Date ??? KNEE SURGERY History reviewed. No pertinent family history. Social History Tobacco Use ??? Smoking status: Never Smoker ??? Smokeless tobacco: Never Used Substance Use Topics ??? Alcohol use: Not Currently ??? Drug use: Defer Social History Social History Narrative ??? Not on file Review of Systems Review of Systems Constitutional: Negative for chills and fever. HENT: Negative for ear pain and sore throat. Eyes: Negative for pain and visual disturbance. Respiratory: Negative for cough and shortness of breath. Cardiovascular: Negative for chest pain and palpitations. Gastrointestinal: Negative for abdominal pain and vomiting. Genitourinary: Negative for dysuria and hematuria. Musculoskeletal: Negative for arthralgias and back pain. Skin: Negative for color change and rash. Neurological: Negative for seizures and syncope. All other systems reviewed and are negative. Physical Exam ED Triage Vitals [08/05/18 2331] Temp Pulse Resp BP SpO2 36.8 ??C (98.2 ??F) 98 14 126/78 99 % Temp src Heart Rate Source Patient Position BP Location FiO2 (%) -- -- -- -- -- Physical Exam Constitutional: He is oriented to person, place, and time. He appears well- developed and well-nourished. AfAm male; nontoxic/afebrile; conversant and ambulatory HENT: Head: Normocephalic and atraumatic. Mouth/Throat: Oropharynx is clear and moist. Eyes: Pupils are equal, round, and reactive to light. Conjunctivae and EOM are normal. Neck: Neck supple. Cardiovascular: Normal rate, regular rhythm, normal heart sounds and intact distal pulses. No murmur heard. Pulmonary/Chest: Effort normal and breath sounds normal. No respiratory distress. Abdominal: Soft. Bowel sounds are normal. He exhibits no distension and no mass. There is no hepatosplenomegaly, splenomegaly or hepatomegaly. There is no tenderness. There is no CVA tenderness. No hernia. Soft/nontender; nondistended; no umbilical/ventral/inguinal hernia; no peritonitis Musculoskeletal: He exhibits no edema. Neurological: He is alert and oriented to person, place, and time. Skin: Skin is warm and dry. Capillary refill takes less than 2 seconds. Psychiatric: He has a normal mood and affect. Nursing note and vitals reviewed. MDM MDM Number of Diagnoses or Management Options Dyspepsia: Diagnosis management comments: 52 year old male with above noted past medical history presents-afebrile, nontoxic, euvolemic with benign generalized/abdominal examination-for evaluation of transient and since resolved abdominal pain. Intend to/have since reviewed diagnostics obtained in triage prior to arrival to treatment room/without derangement and performed abdominal examination/without abnormality. Longitudinal anticipation of discharge to home with as needed PMD followup/diagnosis of dyspepsia and bloating as without indication for additional diagnostic testing based on history/examination andresolution of symptoms. Attending Summary of Care Attending Attestation for Resident note I, Zoraida Izquierdo MD, have seen and examined this patient on 08/06/18. I agree with the findings and plan of care as documented in the resident's note unless noted otherwise here. Dyspepsia Deidre Farley MD 08/06/18 0417 Zoraida Izquierdo MD 08/06/18 0643 * Carlie Pinon RN - 08/06/2018 3:19 AM CDT Bed: ED2-23 Expected date: Expected time: Means of arrival: Car Comments: Carlie Pinon RN 08/06/18 0319 * Cari Yu RN - 08/05/2018 11:32 PM CDT Patient with generalized abdominal pain and a protrusion from his belly button that he noticed for the first time today while at rest. Denies N/V. Last BM today. Bowel sounds present in all 4 quadrants. Denies N/V/D, chest pain, epigastric pain, chills, urinary difficulty or shortness of breath. documented in this encounter Plan of Treatment Not on file documented as of this encounter Procedures Procedure Name Priority Date/Time Associated Diagnosis Comments URINALYSIS AND REFLEX TO MICROSCOPIC AND CULTURE STAT 08/06/2018 12:46 AM CDT DIFFERENTIAL AUTO STAT 08/06/2018 12: 33 AM CDT CBC WITH AUTO DIFFERENTIAL STAT 08/06/2018 12:33 AM CDT LIPASE STAT 08/06/2018 12:33 AM CDT HEPATIC FUNCTION PANEL STAT 08/06/2018 12:33 AM CDT BASIC METABOLIC PANEL STAT 08/06/2018 12:33 AM CDT documented in this encounter Results * (ABNORMAL) Urinalysis reflex to microscopic and culture Urine (08/06/2018 12:46 AM CDT) Color, ur Yellow Yellow [facility] Clarity, ur Clear Clear [facility] Specific gravity, ur 1.009(L) 1.010 - 1.025 [facility] pH, urine 6 [facility] Protein, ur ql Negative Negative [facility] Glucose, ur ql Negative Negative [facility] Ketones, ur Negative Negative [facility] Bilirubin, ur Negative Negative [facility] Blood, ur Negative Negative [facility] Urobilinogen, ur <2.0 <2.0 mg/dL [facility] Nitrite, ur Negative Negative [facility] Leukocyte esterase, ur Negative Negative [facility] Urine 08/06/2018 12:4 6 AM CDT 08/06/2018 12:51 AM CDT Narrative [facility] - 08/06/2018 12:58 AM CDT THE [facility] COLLECTION LOCATION IS Urine pH is affected by diet, medications, systemic acid-base disturbances, and renal tubular function. ??pH may affect urinary stone formation. ??For example, urine pH below 6.0 may help reduce the tendency for calcium phosphate stones and pH greater than 6.0 may reduce the tendency for uric acid stone formation. Source: [employer]. Last revised 03-25-2017 us Zoraida Izquierdo MD LAB MICROBIOLOGY - GEN ERAL ORDERABLES Final Result [facility] [place] [address] * Differential, auto (08/06/2018 12:33 AM CDT) Neutrophil abs 4.6 1.7 - 6.5 K/cumm [facility] Imm gran abs 0.0 0.0 - 0.1 K/cumm [facility] Lymphocyte abs 1.0 0.8 - 3.3 K/cumm [facility] Monocyte abs 0.5 0.2 - 0.8 K/cumm [facility] Eosinophil abs 0.1 0.0 - 0.5 K/cumm [facility] Basophil abs 0.1 0.0 - 0.1 K/cumm [facility] Neutrophil pct 73.7 % [facility] Comment: Interpretive Data Percent cell count reference ranges are not reported, since discordance with absolute values may lead to misinterpretation of CBC data. Current Interpretive Data was last revised on 2017. Imm gran pct 0.2 % [facility] Comment: Interpretive Data Percent cell count reference ranges are not reported, since discordance with absolute values may lead to misinterpretation of CBC data. Current Interpretive Data was last revised on 2017. Lymphocyte pct 15.3 % [facility] Comment: Interpretive Data Percent cell count reference ranges are not reported, since discordance with absolute values may lead to misinterpretation of CBC data. Current Interpretive Data was last revised on 2017. Monocyte pct 8.1 % [facility] Comment: Interpretive Data Percent cell count reference ranges are not reported, since discordance with absolute values may lead to misinterpretation of CBC data. Current Interpretive Data was last revised on 2017. Eosinophil pct 1.6 % [facility] Comment: Interpretive Data Percent cell count reference ranges are not reported, since discordance with absolute values may lead to misinterpretation of CBC data. Current Interpretive Data was last revised on 2017. Basophil pct 1.1 % [facility] Comment: Interpretive Data Percent cell count reference ranges are not reported, since discordance with absolute values may lead to misinterpretation of CBC data. Current Interpretive Data was last revised on 2017. Blood specimen (specimen) 08/06/2018 12:33 AM CDT 08/06/2018 12:56 AM CDT [facility] 08/06/2018 1:03 AM CDT Zoraida Izquierdo MD LAB BLOOD ORDERABLES F inal Result Performing Organization Address [facility] Co de Phone Number [facility] [place] [address] * Lipase (08/06/2018 12:33 AM CDT) Pathologist [facility] Lipase 25 10 - 99 Units/L [facility] Blood specimen (specimen) 08/06/2018 12:33 AM CDT 08/06/2018 12:44 AM CDT [facility] 08/06/2018 1:07 AM CDT THE COLLECTION LOCATION IS Zoraida Izquierdo MD LAB BLOOD ORDERABLES F inal Result Performing Organization Address [facility] Co de Phone Number [facility] Department [place] [address] * Hepatic function panel (08/06/2018 12:33 AM CDT) Pathologist [facility] Bilirubin, total 0.4 0.1 - 1.2 mg/dL [facility] Bilirubin, direct <0.2 0.1 - 0.3 mg/dL [facility] Protein, pl 7.4 6.5 - 8.5 g/dL [facility] Albumin 4.5 3.5 - 5.0 g/dL [facility] Alk phos 96 40 - 130 Units/L [facility] ALT 20 7 - 55 Units/L [facility] AST 28 10 - 50 Units/L [facility] Blood specimen (specimen) 08/06/2018 12:33 AM CDT 08/06/2018 12:44 AM CDT Narrative [facility] - 08/06/2018 1:14 AM CDT THE COLLECTION LOCATION IS us Zoraida Izquierdo MD LAB BLOOD ORDERABLES F inal Result [facility] [place] [address] * CBC with auto differential (08/06/2018 12:33 AM CDT) [facility] WBC 6.3 3.8 - 9.9 K/cumm [facility] Hgb 15.6 13.0 - 17.5 g/dL [facility] Hct 46.1 38.9 - 50.3 % [facility] Plt 175 150 - 400 K/cumm [facility] MPV 10.9 9.1 - 12.3 fL [facility] RBC 5.14 4.30 - 5.80 M/cumm [facility] MCV 89.7 81.3 - 96.4 fL [facility] MCH 30.4 27.1 - 33.3 pg [facility] MCHC 33.8 32.3 - 35.7 g/dL [facility] RDW CV 12.6 11.1 - 14.9 % [facility] RDW SD 41.6 35.7 - 48.1 fL [facility] NRBC abs 0.00 0.00 - 0.01 K/cumm [facility] Blood specimen (specimen) 08/06/2018 12:33 AM CDT 08/06/2018 12:56 AM CDT Narrative [facility] - 08/06/2018 1:03 AM CDT THE [facility] COLLECTION LOCATION IS us Zoraida Izquierdo MD LAB BLOOD ORDERABLES F inal Result [facility] [place] [address] * Basic metabolic panel (08/06/2018 12:33 AM CDT) [facility] Sodium 137 135 - 145 mmol/L [facility] Potassium, pl 3.7 3.3 - 4.9 mmol/L [facility] Chloride 101 97 - 110 mmol/L [facility] CO2 27 22 - 32 mmol/L [facility] Anion gap 9 2 - 15 mmol/L [facility] BUN 9 8 - 25 mg/dL [facility] Creatinine 1.07 0.80 - 1.30 mg/dL [facility] Glucose 86 70 - 199 mg/dL [facility] Comment: Interpretive Data Fasting glucose >/= [...] interpretive data was last revised 2017. Calcium 10.0 8.5 - 10.3 mg/dL [facility] Blood specimen (specimen) 08/06/2018 12:33 AM CDT 08/06/2018 12:44 AM CDT Narrative [facility] - 08/06/2018 1:14 AM CDT THE [facility] COLLECTION LOCATION IS us Zoraida Izquierdo MD LAB BLOOD ORDERABLES F inal Result [facility] [place] [address] documented in this encounter Visit Diagnoses Diagnosis Dyspepsia- Primary Dyspepsia and other specified disorders of function of stomach documented in this encounter Orders IV Count Last Ordered Date First Orde red Date SALINE LOCK IV 1 08/05/2018 documented in this encounter Care Teams Motion Pictures Cartoonist Relationship Specialty Start Date End Date Hero Acevedo MD [address] [place] [address] PCP - General Cardiovascular Disease 11/23/17 3 documented as of this encounter
--- OUTSIDE RECORDS SUMMARY | 2024-03-04 10:37 | XMS_ITS | Encounter Summary ---
Author Organization [facility] Care Team Providers Care Cleaning Handyman Name Role Phone Unavailable Primary Care Provider Unavailabl e Encounter Details Date Type Department Care Team (Late st Contact Info) Description 03/30/2012 6:37 PM BOAT AND PLANT UTILITY SUPERVISOR - 03/30/2012 10:48 PM BOAT AND PLANT UTILITY SUPERVISOR Hospital Encounter [facility] CLINCONSourav Stacy MD [address] [facility] [address] [place] [address] Open wound of finger; Asthma; Accident Social History Tobacco Use Types Packs/Day Years Used Date Smoking Tobacco: Never Assessed Sex and Gender Information Value Date Recorded Sex Assigned at Not on file Legal Sex Male 3:46 AM BOAT AND PLANT UTILITY SUPERVISOR Gender Identity Not on file Sexual Orientation Not on file documented as of this encounter Plan of Treatment Not on file documented as of this encounter Visit Diagnoses Diagnosis Open wound of finger Open wound of finger(s) , without mention of complication Asthma Unspecified asthma Accident Unspecified accident documented in this encounter
--- OUTSIDE RECORDS SUMMARY | 2024-03-04 10:37 | XMS_ITS | Encounter Summary ---
Author Organization [facility] Address [address] [place] [id number] Care Team Providers Care Operations Officer Afloat Name Role Phone Hero Acevedo MD Primary Care Provider [phone] Encounter Details Date Type Department Care Team (Late st Contact Info) Description 11/29/2017 Orders Only [facility] Health Information Release Services [address] [place] [address] [address] [place] [address] Vaibhav Abarca MD [address] [place] [address] [address] [place] [address] Screen for colon cancer (Primary Dx); History of colon polyps Social History Tobacco Use Types Packs/Day Years Used Date Smoking Tobacco: Never Assessed Sex and Gender Information Value Date Recorded Sex Assigned at Not on file Legal Sex Male 3:46 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 Gender Identity Not on file Sexual Orientation Not on file documented as of this encounter Plan of Treatment Scheduled Orders Name Type Priority Associated Diagnoses Orde r Schedule Colonoscopy GI Routine Screen for colon cancer History of colon polyps Expected: 12/10/2017, Expires: 11/29/2018 documented as of this encounter Visit Diagnoses Diagnosis Screen for colon cancer- Primary Special screening for malignant neoplasms, colon History of colon polyps documented in this encounter Care Teams Operations Officer Afloat Relationship Specialty Start Date End Date Hero Acevedo MD [address] [place] [address] PCP - General Cardiovascular Disease 11/23/17 3 documented as of this encounter
--- OUTSIDE RECORDS SUMMARY | 2024-03-04 10:37 | XMS_ITS | Encounter Summary ---
Author Organization [facility] Address [address] [place] [phone] Phone Care Team Providers Care Death Surveys Coder Name Role Phone Hero Acevedo MD Primary Care Provider [phone] Encounter Details Date Type Department Care Team (Late st Contact Info) Description 01/25/2018 Orders Only [address] [address] Hero Acevedo MD [address] [place] [address] Screening for thyroid disorder (Primary Dx); Vitamin D deficiency Social History Tobacco Use Types Packs/Day Years Used Date Smoking Tobacco: Never Assessed Sex and Gender Information Value Date Recorded Sex Assigned at Not on file Legal Sex Male 3:46 AM MEDICAL PROFESSIONALS Gender Identity Not on file Sexual Orientation Not on file documented as of this encounter Plan of Treatment Not on file documented as of this encounter Procedures Procedure Name Priority Date/Time Associated Diagnosis Comments THYROID FUNCTION CASCADE Routine 01/29/2018 11:49 AM MEDICAL [employer]ESSIONALS Screening for thyroid disorder VITAMIN D 25 HYDROXY Routine 01/29/2018 11:49 AM [employer]ICAL [employer]ESSIONALS Vitamin D deficiency documented in this encounter Results * TSH reflex to free T4 (01/29/2018 11:49 AM MEDICAL [employer]ESSIONALS) Pathologist [facility] TSH 1.68 0.40 - 4.50 mIU/L [facility] Blood specimen (specimen) 01/29/2018 11:49 AM [employer]ESSIONALS 01/29/2018 11:50 AM [employer]ESSIONALS Narrative [facility] - 01/31/2018 12:00 PM [employer] FASTING:NO FASTING: NO Resulting Agency Comment Performing Organization Information: ?Site ID: [id number] ?Name: [facility] ?Address: [address] [facility] [place] [address] ?Director: Hero Higginbotham D.O., MPH us Hero Acevedo MD LAB BLOOD ORDERABLES Final R esult [place], [place] * Vitamin D 25 hydroxy (01/29/2018 11:49 AM [employer]) Pathologist [facility] Vitamin D 25-OH 46 30 - 100 ng/mL [facility] Comment: Vitamin D Status ? 25-OH Vitamin D: Deficiency: ?<20 ng/mL Insufficiency: ? 20 - 29 ng/mL Optimal: ? > or = 30 ng/mL For 25-OH Vitamin D testing on patients on D2-supplementation and patients for whom quantitation of D2 and D3 fractions is required, the QuestAssureD(TM) 25-OH VIT D, (D2,D3), LC/MS/MS is recommended: order code 73900 (patients >2yrs). For more information on this test, go to: http://education.Actionsoft/faq/JDG032 (This link is being provided for informational/educational purposes only.) Blood specimen (specimen) 01/29/2018 11:49 AM [employer] 01/29/2018 11:50 AM [employer] Narrative [facility] - 01/31/2018 12:00 PM [employer] FASTING:NO FASTING: NO Resulting Agency Comment Performing Organization Information: ?Site ID: [facility] ?Name: [facility] ?Address: [address] [place] [address] ?Director: Hero Higginbotham D.O., MPH Hero Acevedo MD LAB BLOOD ORDERABLES Final R esult [facility] documented in this encounter Visit Diagnoses Diagnosis Screening for thyroid disorder- Primary Vitamin D deficiency documented in this encounter Historical Medications * This list may reflect changes made after this encounter. polyethylene glycol-electroly luis (NULYTELY) 420 gram solutionIndicati ons:Bowel Evacuation MIX AND DRINK UTD 0 12/07/2017 02 1 FLUZONE QUAD [id number], PF, 60 mcg (15 mcg x 4)/0.5 mL syringe TO BE ADMINISTERED BY IMMUNIZING PHARMACIST 0 01/14/2018 1 added in this encounter Care Teams Death Surveys Coder Relationship Specialty Start Date End Date Hero Acevedo MD [facility] [facility] [address] [place] [address] PCP - General Cardiovascular Disease 11/23/17 3 documented as of this encounter
--- OUTSIDE RECORDS SUMMARY | 2024-03-04 10:37 | XMS_ITS | Encounter Summary ---
Author Organization [facility] Healthcare Address [address] [place] [address] Care Team Providers Care Elementary [employer] Music Teacher Name Role Phone Hero Acevedo MD Primary Care Provider [phone] Reason for Visit * Diagnostic Imaging (Routine) - Closed Specialty Diagnoses / Procedures Referred By Contac t Referred To Contact Diagnoses Acute pain of right knee Procedures XR Knee Right 3 Views XR Knee Right 4+ View Nayana Wayne PA Phone: tel: fax: [facility] Referral ID Status Reason Start Date Expiration Date Visits Re quested Visits Authorized [id number] Closed 02/26/2018 09/07/2019 1 1 Encounter Details Date Type Department Care Team (Latest Contact Info) Description 02/26/2018 10:09 AM GOLF CART MAKER - 02/26/2018 11:59 PM GOLF CART MAKER Hospital Encounter [facility] [address] [place] [address] Nayana Wayne PA [id number] [place] [address] Yusra Ramsey DO [address] [place] [address] Discharge Disposition: Discharge to home or self care Social History Tobacco Use Types Packs/Day Years Used Date Smoking Tobacco: Never Assessed Sex and Gender Information Value Date Recorded Sex Assigned at Not on file Legal Sex Male 3:46 AM GOLF CART MAKER Gender Identity Not on file Sexual [...] 1 each 3 11/29/2017 9 FLUZONE QUAD [id number], PF, 60 mcg (15 mcg x 4)/0.5 [...] Read Routine (OP Routine) 02/26/2018 10:23 AM GOLF CART MAKER Acute pain of right knee documented in this encounter Results * XR Knee Right 3 Views (02/26/2018 10:23 AM GOLF CART MAKER) Anatomical Region Laterality Modality Lower Extremities, Knee Right Computed Radiography 02/26/2018 10:3 4 AM GOLF CART MAKER Impressions 02/26/2018 10:34 AM GOLF CART MAKER Mild right knee medial compartment osteoarthritis with a small joint effusion. Electronically signed by: Malcolm Molina M.D. Narrative 02/26/2018 10:34 AM GOLF CART MAKER EXAMINATION: Right knee 3 views HISTORY: Knee [...] sult documented in this encounter Visit Diagnoses Not on filedocumented in this encounter Care Teams [employer] Music Teacher Relationship Specialty Start Date End Date Hero Acevedo MD [address] [place] [address] DR Duncan SINGH [address] [place] [address] PCP - General Cardiovascular Disease 11/23/17 3 documented as of this encounter
--- OUTSIDE RECORDS SUMMARY | 2024-03-04 10:37 | XMS_ITS | Encounter Summary ---
Author Organization [facility] Address [address] [place] [address] Phone Care Team Providers Care Silk Crepe Machine Operator Name Role Phone Hero Acevedo MD Primary Care Provider [phone] Encounter Details Date Type Department Care Team (Late st Contact Info) Description 11/29/2017 Orders Only [address] [address] Hero Acevedo MD [address] [place] [id number] Depression, unspecified depression type (Primary Dx); Moderate persistent asthma without complication Social History Tobacco Use Types Packs/Day Years Used Date Smoking Tobacco: Never Assessed Sex and Gender Information Value Date Recorded Sex Assigned at Not on file Legal Sex Male 3:46 AM BOTTOM SCRUBBER Gender Identity Not on file Sexual Orientation Not on file documented as of this encounter Ordered Prescriptions Prescription Sig Dispense Quantity Refills Last Filled Start Date End Date PARoxetine (PAXIL) 30 mg tabletIndications: Depression, unspecified depression type Take 1 tablet (30 mg total) by mouth every morning. 30 tablet 3 11/29/2017 albuterol HFA (PROAIR HFA) 90 mcg/actuation inhalerIndications :Bronchospasm Prevention Inhale 2 puffs every 4 (four) hours as needed for wheezing or shortness of breath. 8.5 g 3 11/29/2017 9 venlafaxine XR (EFFEXOR-XR) 37.5 mg 24 hr capsuleIndications :Depression, unspecified depression type Take 1 capsule (37.5 mg total) by mouth daily. 30 capsule 3 11/29/2017 4 fluticasone-salmet adriel (ADVAIR DISKUS) 250-50 mcg/dose diskus inhaler Inhale 1 puff daily. Rinse mouth with water after use to reduce aftertaste and incidence of candidiasis. Do not swallow. 1 each 3 11/29/2017 9 documented in this encounter Plan of Treatment Not on file documented as of this encounter Visit Diagnoses Diagnosis Depression, unspecified depression type- Primary Moderate persistent asthma without complication documented in this encounter Care Teams Silk Crepe Machine Operator Relationship Specialty Start Date End Date Hero Acevedo MD [address] [place] [address] DR Duncan SINGH [address] [place] [address] PCP - General Cardiovascular Disease 11/23/17 3 documented as of this encounter
--- OUTSIDE RECORDS SUMMARY | 2024-03-04 10:40 | XMS_ITS | Clinical Summary ---
Author Organization [facility] Address [address] [facility] [address] Care Team Providers Care Cotton Gin Yard Supervisor Name Role Phone Unavailable Primary Care Provider Unavailabl e Allergies Active Allergy Reactions Criticality Noted Date Comments Fluoxetine Anaphylaxis High 04/23/2023 Sugars, Metabolically Active Anaphylaxis High 2023 Sulfamethoxazole-Trimethoprim Nausea and Vomiting High 04/23/2023 Tetracycline Unknown,Anaphylaxis High 04/23/2023 Encounters Date Type Department Care Team Description 01/12/2024 External Device Data STL ABSTRACTION Provider, Abstract from Last 3 Months Immunizations Name Administration Dates Next Due (COMIRNATY)(12 YR UP) COVID- 19 VACCINE, MRNA, SPIKE PROTEIN, LNP, KALI(PF) 30 MCG/0.3 ML IM SUSP 04/24/2023 Social History Tobacco Use Types Packs/Day Years Used Date Smoking Tobacco: Never Assessed Sex and Gender Information Value Date Recorded Sex Assigned at Not on file Gender Identity Not on file Sexual Orientation Not on file Plan of Treatment Health Maintenance Due Date Last Done Comments DTAP/TDAP/TD VACCINES (1 - Tdap) 12/04/1982 COLORECTAL SCREENING 12/04/2008 Colorectal Cancer Screening 12/04/2008 FIT-DNA Q 3 years 12/04/2008 FIT/FOBT Q 1 year 12/04/2008 Flex Sig/CT Colonography Q 5 years 12/04/2008 ZOSTER VACCINE (1 of 2) 12/04/2013 INFLUENZA VACCINE (#1) 2023 COVID-19 Vaccine (2 - 2023-2 5 season) 2023 04/24/2023 RSV VACCINE (60+ or ) (1 - 1-dose 75+ series) 12/04/2038 HEPATITIS B VACCINES Aged Out No long er eligible based on patient's age to complete this topic PNEUMOCOCCAL VACCINE 0-64 YEARS Aged Out No longer eligible based on patient's age to complete this topic
--- OUTSIDE RECORDS SUMMARY | 2024-03-04 10:40 | XMS_ITS | Encounter Summary ---
Author Organization [facility] Address [address] [place] [address] Care Team Providers Care Manager Golf Name Role Phone Unavailable Primary Care Provider Unavailabl e Encounter Details Date Type Department Care Team (Late st Contact Info) Description 09/14/2023 External Device Data STL ABSTRACTION Provider, Abstract NO ADDRESS ON FILE Social History Tobacco Use Types Packs/Day Years [...]
--- OUTSIDE RECORDS SUMMARY | 2024-03-04 10:40 | XMS_ITS | Encounter Summary ---
Author Organization [facility] Address [address] [place] [address] Care Team Providers Care Tool/Die Maker Name Role Phone Unavailable Primary Care Provider Unavailabl e Encounter Details Date Type Department Care Team (Late st Contact Info) Description 11/16/2023 External Device Data STL ABSTRACTION Provider, Abstract [...]
--- OUTSIDE RECORDS SUMMARY | 2024-03-04 10:40 | XMS_ITS | Continuity of Care Document ---
Author Organization [facility] Address [address] [place] [address] [address] [place] [address] Phone Care Team Providers Care Indirect Sales Exec Name Role Phone Manuel PT, DPTYoung Unavailable Unavailab le Procedures Procedure Date Therapeutic Exercise Therapeutic Activities Neuromuscular Re-Ed Therapeutic Exercise Therapeutic Activities Neuromuscular Re-Ed Progress Note Therapeutic Exercise Therapeutic Activities Neuromuscular Re-Ed Therapeutic Exercise Therapeutic Activities Neuromuscular Re-Ed Therapeutic Exercise Therapeutic Activities Neuromuscular Re-Ed Therapeutic Exercise Therapeutic Activities Neuromuscular Re-Ed Therapeutic Exercise Therapeutic Activities Neuromuscular Re-Ed Therapeutic Exercise Therapeutic Activities Neuromuscular Re-Ed Therapeutic Exercise Therapeutic Activities Neuromuscular Re-Ed Manual Therapy Hot or Cold Pack Therapeutic Exercise Therapeutic Activities Neuromuscular Re-Ed Manual Therapy Therapeutic Exercise Therapeutic Activities Neuromuscular Re-Ed Manual Therapy PT Evaluation Moderate Complexity Therapeutic Exercise Therapeutic Activities Neuromuscular Re-Ed Advance Directives Directive Yes / No Effective Date File Name No Information Encounters Encounter Description Practice Location Reason(s) For Visit Diagnoses Date Provider Providers Copied on Encounter [facility], [address] [facility] [address], [place], [place], [id number], [place] tel:[phone] [place] No Information 9 Manuel Vidal. . Referring Provider: Pedro Field Jr, [address], [facility] [place], [address]. tel:[phone] [facility] [address], [place], [place], [id number], [place] tel:[phone] [place] Pain in right knee 9 Finn Sourav. , [place], [place]. Referring Provider: Nayana Wayne, [address] [place] [address], [facility] [place], [address]. tel:[phone] [facility], [place], [place], [id number], [place] tel:[phone] [place] Pain in right knee 9 Finn Sourav. , [place], [place]. Referring Provider: Nayana Wayne, [id number] [place] [address], [place], [address]. tel:[phone] [facility] [facility] [address], [place], [place], [id number], [place] tel:[phone] [place] Pain in right knee 9 Finn Sourav. , [place], [place]. Referring Provider: Nayana Wayne, [address] [facility], [facility], [address]. tel:[phone] [facility] [facility] [address], [place], [place], [id number], [place] tel:[phone] [place] Pain in right knee 9 Aakash Robertsn. , [place], [place]. Referring Provider: Nayana Wayne, [address] [place] [address], [place], [address]. tel:[phone] [facility], [place], [place], [id number], [place] tel:[phone] [place] Pain in right knee 9 Finn Sourav. , [place], [place]. Referring Provider: Nayana Wayne, [address] [place] [address], [facility] [place], [address]. tel:[phone] [facility], [address], [place], [place], [id number], [place] tel:[phone] [place] Pain in right knee 9 Finn Sourav. , [place], [place]. Referring Provider: Nayana Wayne, [address] [place] [address], [facility] [place], [address]. tel:[phone] [facility] [address], [place], [place], [id number], [place] tel:[phone] [place] Pain in right knee 9 Finn Sourav. , [place], [place]. Referring Provider: Nayana Wayne, [address] [place] [address], [facility] [place], [address]. tel:[phone] [facility] [facility] [address], [place], [place], [address], [place] tel:[phone] [place] Pain in right knee 2 9 Finn Sourav. , [place], [place]. Referring Provider: Nayana Wayne, [address] [place] [address], [place], [address]. tel:[phone] [facility] [facility] [address], [place], [place], [id number], [place] tel:[phone] [place] Pain in right knee 8 Threlkeld Alethea. . Referring Provider: Nayana Wayne, [address] [place] [address], [place], [address]. tel:[phone] [facility] [address], [place], [place], [id number], tel:[phone] [place] Pain in right knee 8 [place], . Referring Provider: Nayana Wayne, [address] [place] [address], [place], [address]. tel:[phone] [facility] [facility] [address], [place], [place], [id number], tel:[phone] [place] Pain in right knee 8 [place], . Referring Provider: Nayana Wayne, [address] [place] [address], [place], [address]. tel:[phone] [facility], [address] [address], [place], [place], [id number], tel:[phone] [place] Pain in right knee 8 [place], [place]. Referring Provider: Nayana Wayne, [address] [facility], [place], [address]. tel:[phone] Family History Family Member Type Diagnosis Age At Onset No Information Payers Payer name Insurance type Covered republican ID Authoriza tion(s) No Information Social History Type Description Quantity Date Captured Comments Sex Male Smoking Status No Information Chief Complaint And Reason For Visit No Information Reason For Referral Reason For Referral No Information History Of Present Illness Encounter Date Complaint History Of Prese nt Illness No Information Functional Status Date Functional Assessmen t No Information Instructions Date Instruction Additional Infor mation No Information Assessments Type Assessment Date No Information Patient Care Teams Name Effective Dates (start - stop) Status Members No Information
--- OUTSIDE RECORDS SUMMARY | 2024-03-04 10:40 | XMS_ITS | Encounter Summary ---
Author Organization [facility] Address [address] [place] [address] Care Team Providers Care Product Handler Name Role Phone Unavailable Primary Care Provider Unavailabl e Encounter Details Date Type Department Care Team (Late st Contact Info) Description 05/04/2023 External Device Data STL ABSTRACTION Provider, Abstract [...]
--- OUTSIDE RECORDS SUMMARY | 2024-03-04 10:40 | XMS_ITS | Encounter Summary ---
Author Organization [facility] Address [address] [place] [address] Care Team Providers Care Tape Cutting Machine Operator Name Role Phone Unavailable Primary Care Provider Unavailabl e Encounter Details Date Type Department Care Team (Late st Contact Info) Description 01/12/2024 External Device Data STL ABSTRACTION [...]
--- OUTSIDE RECORDS SUMMARY | 2024-03-04 10:40 | XMS_ITS | Encounter Summary ---
Author Organization [facility] Address [address] [place] [address] Care Team Providers Care Tobacco Curer Name Role Phone Unavailable Primary Care Provider Unavailabl e Encounter Details Date Type Department Care Team (Late st Contact Info) Description 10/19/2023 External Device Data STL ABSTRACTION Provider, Abstract [...]
--- OUTSIDE RECORDS SUMMARY | 2024-03-04 10:40 | XMS_ITS | Encounter Summary ---
Author Organization [facility] Address [address] [place] [address] Care Team Providers Care It Software Engineer Name Role Phone Unavailable Primary Care Provider Unavailabl e Encounter Details Date Type Department Care Team (Late st Contact Info) Description 05/18/2023 External Device Data STL ABSTRACTION Provider, Abstract [...]
--- OUTSIDE RECORDS SUMMARY | 2024-03-04 10:40 | XMS_ITS | Encounter Summary ---
Author Organization [facility] Address [address] [place] [address] Care Team Providers Care Assembly Manager Name Role Phone Unavailable Primary Care Provider Unavailabl e Encounter Details Date Type Department Care Team (Late st Contact Info) Description 04/30/2023 External Device Data STL ABSTRACTION Provider, Abstract [...]
--- OUTSIDE RECORDS SUMMARY | 2024-03-04 10:40 | XMS_ITS | Encounter Summary ---
Author Organization [facility] Address [address] [place] [address] Care Team Providers Care Pivot Maker Name Role Phone Unavailable Primary Care Provider Unavailabl e Encounter Details Date Type Department Care Team (Late st Contact Info) Description 05/03/2023 External Device Data STL ABSTRACTION Provider, Abstract [...]
== END 2024-02-28 11:52 | disposition home or self-care (01) ==
PROVIDERS: PCP Family Medicine; Visit Provider Internal Medicine Gastroenterology
PROC: 0DJD8ZZ Inspection of Lower Intestinal Tract, Via Natural or Artificial Opening Endoscopic (ICD-10-PCS; CPT 45378; principal; 2024-02-28 11:30)
DX: Z12.11 Encounter for screening for malignant neoplasm of colon (principal); Z86.0100 Personal history of colon polyps, unspecified; Z80.0 Family history of malignant neoplasm of digestive organs; I10 Essential (primary) hypertension; J45.909 Unspecified asthma, uncomplicated; Z79.51 Long term (current) use of inhaled steroids
CPT/HCPCS: 45378; J2003; J2704; J7120